=== PATIENT | male | born 1935 | race Caucasian/White ===

== ENCOUNTER 2016-08-20 08:24 | Outpatient (RCR) | payer MEDICARE ==
[~2016-08-20 08:24] MED LIST: ASP81CT PO; ATRV10T PO; CALC1TAB94 PO; CARV6.252 PO; CLOP75TA PO; COLC1TAB PO; EZET10TA5 PO; GEMF600T3 PO; GLYB1.253 PO; METF-380 PO; MULT-963 PO; OMG1KC PO; RMP5C PO; RSG4T PO; SITA100T PO
[2016-08-20 08:56] LABS: BASOPHILS % (AUTO) 0 % (0-10); EOSINOPHILS # (AUTO) 0.4 10^3/uL (0.0-0.3); EOSINOPHILS % (AUTO) 8 % (0-10); LYMPHOCYTES # (AUTO) 1.9 X 10^3 (1.0-4.0); LYMPHOCYTES % (AUTO) 33 % (12-44); MEAN CORPUSCULAR HEMOGLOBIN 31 PG (25-34); MEAN CORPUSCULAR HGB CONC 34 G/DL (32-36); MEAN CORPUSCULAR VOLUME 91 FL (80-99); MEAN PLATELET VOLUME 9.6 FL (7.4-10.4); MONOCYTES # (AUTO) 0.8 X 10^3 (0.0-1.0); MONOCYTES % (AUTO) 14 % (0-12); NEUTROPHILS # (AUTO) 2.7 X 10^3 (1.8-7.8); NEUTROPHILS % (AUTO) 46 % (42-75); PLATELET COUNT 169 10^3/uL (130-400); RED BLOOD COUNT 5.01 10^6/uL (4.35-5.85); RED CELL DISTRIBUTION WIDTH 13.7 % (10.0-14.5); WHITE BLOOD COUNT 5.9 10^3/uL (4.3-11.0)
[2016-08-20 09:26] LABS: ALANINE AMINOTRANSFERASE 14 U/L (0-55); ALBUMIN 4.2 G/DL (3.2-4.5); ANION GAP 10 MMOL/L (5-14); ASPARTATE AMINO TRANSFERASE 17 U/L (5-34); BILIRUBIN,TOTAL 0.7 MG/DL (0.1-1.0); BLOOD UREA NITROGEN 25 MG/DL (7-18); BUN/CREATININE RATIO 25; CALCIUM 9.5 MG/DL (8.5-10.1); CARBON DIOXIDE 26 MMOL/L (21-32); CHLORIDE 102 MMOL/L (98-107); CREATININE SERUM 1.02 MG/DL (0.60-1.30); GFR ESTIMATED > 60; GLUCOSE 189 MG/DL (70-105); LACTATE DEHYDROGENASE 193 U/L (125-220); POTASSIUM 4.8 MMOL/L (3.6-5.0); SODIUM 138 MMOL/L (135-145); TOTAL PROTEIN 7.3 G/DL (6.4-8.2)
== END 2016-11-18 | disposition home or self-care (01) ==
LOC: ONC 08:24
PROVIDERS: ATTEND Internal Medicine Hematology & Oncology
DX: Z08 Encounter for follow-up examination after completed treatment for malignant neoplasm (principal); Z85.820 Personal history of malignant melanoma of skin; L57.0 Actinic keratosis; Z79.899 Other long term (current) drug therapy
CPT/HCPCS: 36415; 80053; 83615; 85025; 99213

== ENCOUNTER → 2017-01-02 | Outpatient (CLI) | payer MEDICARE | LOC: RT 10:00 | PROVIDERS: ATTEND Internal Medicine | DX: J44.9 Chronic obstructive pulmonary disease, unspecified (principal); R06.02 Shortness of breath | CPT/HCPCS: 94761 ==

== ENCOUNTER → 2017-06-05 | Outpatient (CLI) | payer MEDICARE, BC ==
[~2017-06-05] MED LIST changes: +AMLO10TA2 PO; +ASPI-983 PO; +ASPI-999 PO; +ATOR20TA66 PO; +CALC-6 PO; +CILO100T PO; +DONE10TA41 PO; +FURO40TA4 PO; +INSU100I10 SC; +INSU100I23 SC; +MULT-35 PO; +NITR0.4T42 SL; +RAMI5CAP PO; +RT-ALBUINH INH; +RT-ALBUTEROL SULF 2.5 MG/3 ML PRE-MIX VIAL INH ONE
--- NOTE | 2017-06-05 08:37 | Diagnostic Imaging Report ---
INDICATION: Wheezing PA and lateral chest obtained at 7:54 a.m. and compared with 04/03/2013. FINDINGS: Heart is mildly enlarged. There is central vascular congestion with some peribronchial thickening. There is no overt consolidation or pneumothorax or pleural fluid. IMPRESSION: Cardiomegaly with central vascular congestion and peribronchial thickening. No focal infiltrate or pneumothorax or pleural fluid. Dictated by: Dictated on workstation # [id number]
[2017-06-05 09:24] LABS: BASOPHILS % (AUTO) 0 % (0-10); EOSINOPHILS # (AUTO) 0.1 10^3/uL (0.0-0.3); EOSINOPHILS % (AUTO) 1 % (0-10); HEMATOCRIT 40 % (40-54); HEMOGLOBIN 13.9 G/DL (13.3-17.7); LYMPHOCYTES % (AUTO) 29 % (12-44); MEAN CORPUSCULAR HEMOGLOBIN 30 PG (25-34); MEAN CORPUSCULAR HGB CONC 35 G/DL (32-36); MEAN CORPUSCULAR VOLUME 87 FL (80-99); MEAN PLATELET VOLUME 9.5 FL (7.4-10.4); MONOCYTES # (AUTO) 0.7 X 10^3 (0.0-1.0); MONOCYTES % (AUTO) 10 % (0-12); NEUTROPHILS # (AUTO) 4.1 X 10^3 (1.8-7.8); NEUTROPHILS % (AUTO) 60 % (42-75); PLATELET COUNT 214 10^3/uL (130-400); RED CELL DISTRIBUTION WIDTH 13.6 % (10.0-14.5); WHITE BLOOD COUNT 6.9 10^3/uL (4.3-11.0)
[2017-06-05 09:49] LABS: ALANINE AMINOTRANSFERASE 12 U/L (0-55); ALKALINE PHOSPHATASE 114 U/L (40-136); BILIRUBIN,TOTAL 1.6 MG/DL (0.1-1.0); BUN/CREATININE RATIO 23; CALCIUM 9.6 MG/DL (8.5-10.1); CARBON DIOXIDE 19 MMOL/L (21-32); CHLORIDE 101 MMOL/L (98-107); CREATININE SERUM 0.94 MG/DL (0.60-1.30); GFR ESTIMATED > 60; GLUCOSE 150 MG/DL (70-105); POTASSIUM 4.1 MMOL/L (3.6-5.0); SODIUM 135 MMOL/L (135-145); TOTAL PROTEIN 7.7 GM/DL (6.4-8.2)
== END ==
LOC: RT 07:15
PROVIDERS: ATTEND Internal Medicine
DX: R06.2 Wheezing (principal)
CPT/HCPCS: 36415; 71046; 80053; 84484; 85025; 94060; 94726; 94729

== ENCOUNTER 2017-06-06 06:45 | Inpatient (IN) | payer MEDICARE, BC ==
[~2017-06-06] VITALS: Ht 177.8 cm; Wt 97.2 kg
[~2017-06-06 06:45] MED LIST changes: -AMLO10TA2 PO; -ASPI-983 PO; -ASPI-999 PO; -ATOR20TA66 PO; -CALC-6 PO; -CILO100T PO; -DONE10TA41 PO; -FURO40TA4 PO; -INSU100I10 SC; -INSU100I23 SC; -MULT-35 PO; -NITR0.4T42 SL; -RAMI5CAP PO; -RT-ALBUINH INH; -RT-ALBUTEROL SULF 2.5 MG/3 ML PRE-MIX VIAL INH ONE
[2017-06-06] MEDS ORDERED: FURO40TA4 PO (07:07)
[2017-06-06] MEDS ORDERED: AMLO10TA2 PO (07:07)
[2017-06-06] MEDS ORDERED: DONE10TA41 PO (07:07)
[2017-06-06 07:12] LABS: BASOPHILS % (AUTO) 0 % (0-10); EOSINOPHILS # (AUTO) 0.1 10^3/uL (0.0-0.3); EOSINOPHILS % (AUTO) 2 % (0-10); HEMATOCRIT 40 % (40-54); HEMOGLOBIN 13.9 G/DL (13.3-17.7); LYMPHOCYTES # (AUTO) 1.9 X 10^3 (1.0-4.0); LYMPHOCYTES % (AUTO) 27 % (12-44); MEAN CORPUSCULAR HEMOGLOBIN 31 PG (25-34); MEAN CORPUSCULAR HGB CONC 35 G/DL (32-36); MEAN CORPUSCULAR VOLUME 88 FL (80-99); MEAN PLATELET VOLUME 9.8 FL (7.4-10.4); MONOCYTES # (AUTO) 0.7 X 10^3 (0.0-1.0); MONOCYTES % (AUTO) 10 % (0-12); NEUTROPHILS # (AUTO) 4.3 X 10^3 (1.8-7.8); NEUTROPHILS % (AUTO) 61 % (42-75); PLATELET COUNT 198 10^3/uL (130-400); RED BLOOD COUNT 4.52 10^6/uL (4.35-5.85); RED CELL DISTRIBUTION WIDTH 13.7 % (10.0-14.5); WHITE BLOOD COUNT 7.1 10^3/uL (4.3-11.0)
[2017-06-06 07:30] LABS: ALANINE AMINOTRANSFERASE 13 U/L (0-55); ALKALINE PHOSPHATASE 117 U/L (40-136); BILIRUBIN,TOTAL 1.2 MG/DL (0.1-1.0); BUN/CREATININE RATIO 23; CALCIUM 9.5 MG/DL (8.5-10.1); CARBON DIOXIDE 21 MMOL/L (21-32); CHLORIDE 103 MMOL/L (98-107); CREATININE SERUM 0.84 MG/DL (0.60-1.30); GFR ESTIMATED > 60; GLUCOSE 178 MG/DL (70-105); POTASSIUM 4.3 MMOL/L (3.6-5.0); SODIUM 136 MMOL/L (135-145); TOTAL PROTEIN 7.6 GM/DL (6.4-8.2)
--- NOTE | 2017-06-06 07:54 | Diagnostic Imaging Report ---
INDICATION: Shortness of breath. TECHNIQUE: Single view chest 7:26 AM. CORRELATION STUDY: 06/05/2017 FINDINGS: Heart size enlarged and hilar structures are prominent. Some degree of vascular congestion present, appears increased. Superimposed infiltrate versus edema also suggested about the right infrahilar region. Probable effusions. Truxton screw over the right humeral head. IMPRESSION: 1. Cardiac enlargement with what appears to be presence of pulmonary vascular congestion and perihilar edema. Superimposed infiltrate or edema also appears to be suspect about the right lung base with overall features worsened from prior study. Given the severity of hilar fullness, adenopathy or mass lesion would be difficult to exclude. Dictated by: Dictated on workstation # [id number]
--- NOTE | 2017-06-06 08:17 | ED Respiratory ---
General Chief Complaint: Respiratory Problems Stated Complaint: SOB Nursing Triage Note: pt brought in by ems with complaint of sob. pt states he has been sob for the last few weeks, but it became worse this morning. Source: patient, family Exam Limitations: no limitations History of Present Illness Date Seen by Provider: Jun 06, 2017 Time Seen by Provider: 07:55 Timing/Duration: week, getting worse Severity: moderate Prior Episodes/Possible Cause: chronic episodes Modifying Factors: Improves With Lying Down Allergies and Home Medications Allergies Coded Allergies: No Known Drug Allergies (Unverified , 10/05/09) Home Medications Amlodipine Besylate 10 Mg Tablet, (Reported) Aspirin 81 Mg Chew, 81 MG PO DAILY, (Reported) Calcium Carbonate/Vitamin D3 1 Each Tablet, 1 EACH PO DAILY, (Reported) Carvedilol 6.25 Mg Tablet, 6.25 MG PO BID, (Reported) Colchicine/Probenecid 1 Each Tablet, 1 TAB PO BID, (Reported) Donepezil HCl 10 Mg Tablet, (Reported) Furosemide 40 Mg Tablet, (Reported) Glyburide 1.25 Mg Tablet, 1.25 MG PO DAILY, #30 Prescribed by: FAVIOLA FRIAS on 04/06/13 1017 Metformin Hcl 1,000 Mg Tablet, 1,000 MG PO BID WITH MEALS, (Reported) Multivitamin 1 Each Tablet, 1 TAB PO DAILY, #30 Prescribed by: FAVIOLA FRIAS on 04/06/13 1017 [place] 3 Polyunsat Fatty Acids 1,000 Mg Cap, 1,000 MG PO DAILY, (Reported) Ramipril 5 Mg Cap, 5 MG PO DAILY, (Reported) Sitagliptin Phosphate 100 Mg Tablet, 100 MG PO DAILY, (Reported) Constitutional: see HPI EENTM: no symptoms reported Respiratory: see HPI, dyspnea on exertion, short of breath Cardiovascular: no symptoms reported Gastrointestinal: no symptoms reported Genitourinary: no symptoms reported Musculoskeletal: no symptoms reported Skin: no symptoms reported Psychiatric/Neurological: No Symptoms Reported Hematologic/Lymphatic: No Symptoms Reported Immunological/Allergic: no symptoms reported Past Wlyiobj-Swvhbt-Biotvu Hx Patient Social History Alcohol Use: Occasionally Uses Recreational Drug Use: No Smoking Status: Former Smoker Recent Foreign Travel: No Contact w/Someone Who Travel: No Recent Infectious Disease Expo: No Recent Hopitalizations: Yes Immunizations Up To Date PED Vaccines UTD: Yes Surgeries History of Surgeries: Yes (rotator cuff bilat, knee replacement, broken legs bilat, melanomo in ear re) Respiratory History of Respiratory Disorde: No Cardiovascular History of Cardiac Disorders: Yes Cardiac Disorders: Heart Attack, Hypertension Neurological History of Neurological Disord: Yes Reproductive System Hx Reproductive Disorders: No Gastrointestinal History of Gastrointestinal Di: No Musculoskeletal History of Musculoskeletal Dis: Yes Musculoskeletal Disorders: Gout Endocrine History of Endocrine Disorders: Yes Endocrine Disorders: Diabetes, Insulin dep HEENT HEENT Disorders: Cataract Loss of Vision: Right Hearing Impairment: Hard of Hearing Cancer History of Cancer: Yes Cancer: Skin, Melanoma Psychosocial History of Psychiatric Problem: No Integumentary History of Skin or Integumenta: Yes (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) Blood Transfusions History of Blood Disorders: No Adverse Reaction to a Blood Tr: No Family Medical History Significant Family History: Heart Disease, Cancer, CAD Under 55 Years Old Family Medial History: Cancer 09 SISTER, Onset:60 years & older (OVARIAN CANCER) 09 SISTER, Onset:40's - 50 (BREAST CANCER) Chest pain 03 FATHER, Onset:50's - 60 ([place]) Dementia 03 MOTHER, Onset:60 years & older Family history: Alzheimer's disease 03 MOTHER, Onset:60 years & older Family history: Arthritis 03 FATHER, Onset:40's - 50 Family history: Breast disease 09 SISTER, Onset:40's - 50 ( OF BREAST CANCER) Family history: Cardiovascular disease 03 FATHER, Onset:40's - 50 Family history: Hypertension 03 FATHER, Onset:40's - 50 Heart disease 03 FATHER, Onset:40's - 50 Hypercholesterolemia 03 FATHER, Onset:40's - 50 Myocardial infarction 03 FATHER, Onset:40's - 50 Visual impairment 09 SISTER, Onset:40's - 50 No Family History of: Abdominal aortic aneurysm Rick's disease Alcoholism Aphasia Cancer of colon Cataract Congenital heart disease Congestive heart failure Cystic fibrosis Dysphagia Family history: Allergy Family history: Asthma Family history: Coronary thrombosis Family history: Diabetes mellitus Family history: Gastrointestinal disease Family history: Glaucoma Family history: Osteoporosis Family history: Thyroid disorder Headache Hearing loss Hereditary disease History of - anemia History of - disorder History of - respiratory disease History of drug abuse Human immunodeficiency virus (HIV) seropositivity Infertile Kidney disease Malignant neoplasm of lung Parkinson's disease Prostate cancer Psychotic disorder Seizure disorder Stroke Tuberculosis Physical Exam Vital Signs Vital Signs - First Documented 06/06/17 06:45 Temp 97.8 Pulse 90 Resp 28 B/P (MAP) 109/77 (88) Pulse Ox 88 O2 Delivery Room Air Capillary Refill : Less Than 3 Seconds General Appearance: mild distress (speaks in full sentences nonstop) Eyes: Bilateral Eye Normal Inspection HEENT: normal ENT inspection Neck: full range of motion, normal inspection (no JVD noted at 45) Respiratory: decreased breath sounds (distant) Cardiovascular: normal peripheral pulses, regular rate, rhythm, no gallop, no JVD Gastrointestinal: normal bowel sounds, non tender, soft, no organomegaly, no pulsatile mass Extremities: swelling (bilateral to midshin) Neurologic/Psychiatric: other (repeats stories) Skin: normal color, warm/dry Lymphatic: no adenopathy Progress/Results/Core Measures Suspected Sepsis Recent Fever Within 48 Hours: No Infection Criteria Present: None New/Unexplained Altered Menta: No Sepsis Screen: No Definite Risk Sepsis Diagnosis: SIRS Temperature:97.8 Pulse: 90 Respiratory Rate: 28 Laboratory Tests 06/06/17 07:03: White Blood Count 7.1 Blood Pressure 109 /77 Mean: 88 Laboratory Tests 06/06/17 07:03: Creatinine 0.84, Platelet Count 198, Total Bilirubin 1.2H Results/Orders Lab Results Laboratory Tests Test 06/06/17 07:03 Range/Units White Blood Count 7.1 4.3-11.0 10^3/uL Red Blood Count 4.52 4.35-5.85 10^6/uL Hemoglobin 13.9 13.3-17.7 G/DL Hematocrit 40 40-54 % Mean Corpuscular Volume 88 80-99 FL Mean Corpuscular Hemoglobin 31 25-34 PG Mean Corpuscular Hemoglobin Concent 35 32-36 G/DL Red Cell Distribution Width 13.7 10.0-14.5 % Platelet Count 198 130-400 10^3/uL Mean Platelet Volume 9.8 7.4-10.4 FL Neutrophils (%) (Auto) 61 42-75 % Lymphocytes (%) (Auto) 27 12-44 % Monocytes (%) (Auto) 10 0-12 % Eosinophils (%) (Auto) 2 0-10 % Basophils (%) (Auto) 0 0-10 % Neutrophils # (Auto) 4.3 1.8-7.8 X 10^3 Lymphocytes # (Auto) 1.9 1.0-4.0 X 10^3 Monocytes # (Auto) 0.7 0.0-1.0 X 10^3 Eosinophils # (Auto) 0.1 0.0-0.3 10^3/uL Basophils # (Auto) 0.0 0.0-0.1 10^3/uL Sodium Level 136 135-145 MMOL/L Potassium Level 4.3 3.6-5.0 MMOL/L Chloride Level 103 98-107 MMOL/L Carbon Dioxide Level 21 21-32 MMOL/L Anion Gap 12 5-14 MMOL/L Blood Urea Nitrogen 19 H 7-18 MG/DL Creatinine 0.84 0.60-1.30 MG/DL Estimat Glomerular Filtration Rate > 60 BUN/Creatinine Ratio 23 Glucose Level 178 H 70-105 MG/DL Calcium Level 9.5 8.5-10.1 MG/DL Total Bilirubin 1.2 H 0.1-1.0 MG/DL Aspartate Amino Transf (AST/SGOT) 17 5-34 U/L Alanine Aminotransferase (ALT/SGPT) 13 0-55 U/L Alkaline Phosphatase 117 40-136 U/L B-Type Natriuretic Peptide 854.1 H <100.0 PG/ML Total Protein 7.6 6.4-8.2 GM/DL Albumin 4.0 3.2-4.5 GM/DL My Orders Orders - ASHLEY MIKE MD BNP (06/06/17 07:05) Cbc With Automated Diff (06/06/17 07:05) Comprehensive Metabolic Panel (06/06/17 07:05) Ua Culture If Indicated (06/06/17 07:05) Chest 1 View, Ap/Pa Only (06/06/17 07:05) Vital Signs/I&O Vital Sign - Last 12Hours 06/06/17 06:45 Temp 97.8 Pulse 90 Resp 28 B/P (MAP) 109/77 (88) Pulse Ox 88 O2 Delivery Room Air Capillary Refill : Less Than 3 Seconds Blood Pressure Mean: 88 Departure Communication (Admissions) Progress Notes Examination of old records showed a previous echocardiogram from 2012. This showed an aortic valve area 1.1 cm and a pulmonary artery pressure of 40. He has seen Dr. Sander SAENZ and these records from [place] are not available to me at this time. Chest x-ray yesterday is compared to today's and the congestion and the pulmonary outflow track is considerably increased as compared to yesterday. BNP is 850. No other readings are available on the BNP for comparison. Spoke to Dr. Frias his PCP at 0800 and additional information from the office was acquire. She believes that both the patient and his are increasingly confused and struggling to maintain themselves at home. Spoke to Dr. Dumont of the hospitalist service at 0808 and the patient will be admitted Impression Impression: Primary Impression: congestive heart failure Disposition: ADMITTED INPATIENT Condition: Stable/Unchanged Admissions Decision to Admit Reason: Admit from ER (General) Decision to Admit/Date: Jun 06, 2017 Time/Decision to Admit Time: 08:28 Departure-Patient Inst. Referrals: FAVIOLA FRIAS DO (PCP/Family) Primary Care Physician ASHLEY MIKE MD Jun 06, 2017 08:17
[2017-06-06] MEDS ORDERED: OMG1KC PO (10:08)
[2017-06-06] MEDS ORDERED: MULT-35 PO (10:08)
[2017-06-06] MEDS ORDERED: ATOR20TA66 PO (10:08)
[2017-06-06] MEDS ORDERED: CILO100T PO (10:08)
[2017-06-06] MEDS ORDERED: CALC-6 PO (10:08)
[2017-06-06] MEDS ORDERED: ASPI-999 PO (10:08)
[2017-06-06] MEDS ORDERED: CARV6.252 PO (10:08)
[2017-06-06] MEDS: FUROSEMIDE 40 MG/4 ML INJ (LASIX) IV SCH ×2 (10:22→17:28)
[2017-06-06] MEDS ORDERED: RAMI5CAP PO (10:38)
[2017-06-06] MEDS ORDERED: ASPI-983 PO (10:38)
[2017-06-06] MEDS ORDERED: INSU100I23 SC (10:38)
[2017-06-06] MEDS ORDERED: NITR0.4T42 SL (10:38)
[2017-06-06] MEDS ORDERED: INSU100I10 SC (10:38)
[2017-06-06] MEDS ORDERED: RT-ALBUINH INH (10:38)
[2017-06-06] MEDS ORDERED: INFLUENZA TRIvalent 2017-2018 0.5 ML/45 MCG SYR IM ONE (10:45)
--- NOTE | 2017-06-06 11:22 | Consultation-Cardiology ---
HPI-Cardiology Cardiology Consultation: Date of Consultation 06/06/17 Date of Admission Attending Physician Tanvi Maxwell DO Admitting Physician Tanvi Maxwell DO Consulting Physician Boris PALAFOX MD HPI: Time Seen by Provider: 10:00 Chief Complaint: Shortness of breath This is a pleasant 82-year-old gentleman who has past medical history of congestive heart failure, diabetes, possible CAD and high blood pressure. The patient had presented to the emergency department with complains of shortness of breath. He has had shortness of breath for a while but has been worse in the last 2-3 days. However he also had an admission at [facility] in [place] for congestive heart failure 2-3 months ago. Patient also complained of coughing with sputum. No fever or chills. The patient denies any claudication but has mild swelling in the legs. The patient denies any significant chest pain, syncope or near syncope or palpitations during my interview. Review of Systems-Cardiology Review of Systems Constitutional: No As described under HPI, No no symptoms reported, No chills, No fever, No lightheadedness, malaise, No tiredness, No weight loss, No weight gain, No other Eyes: No As described under HPI, No no symptoms reported, No blindness, No blurred vision, No contact lenses, No drainage, No decreased acuity, No foreign body sensation, No glasses, No inflammation, No pain, No photophobia, No previous injury, No shadows, No tunnel vision, No other, No vision change Ears/Nose/Throat: No As described under HPI, No no symptoms reported, chronic hearing loss, No epistaxis, No ear discharge, No ear pain, No loose teeth, No mouth pain, No mouth swelling, No nasal drainage, No nose pain, No recent hearing loss, No throat pain, No throat swelling, No ulcerations, No other Respiratory: cough, shortness of breath Cardiovascular: No no symptoms reported, No As described under HPI, No chest pain, edema, No irregular heart rate, No lightheadedness, No palpitations, No syncope, No other Gastrointestinal: No no symptoms reported, No As described under HPI, No abdomen distended, No abdominal pain, No blood streaked bowels, No constipation , No diarrhea, No difficulty swallowing, No nausea, No poor appetite, No poor fluid intake, No rectal bleeding, No vomiting, No other, No nausea/vomiting/ diarrhea, No stool coloration changes Genitourinary: No no symptoms reported, No As described under HPI, No burning, No dysuria, No discharge, No frequency, No flank pain, No hematuria, No incontinence, No pain, No urgency, No other, No urine frequency changes, No urine coloration changes Musculoskeletal: No no symptoms reported, No As describe under HPI, No back pain, No gout, No joint pain, No joint swelling, No muscle pain, No muscle stiffness, No neck pain, No other Skin: No no symptoms reported, No As described under HPI, No change in color, No change in hair/nails, No dryness, No lesions, No lumps, No rash, No other, No skin related problems, No ulcerations, No rash on exposed areas, No ulcerations on exposed areas Psychiatric/Neurological: No no symptoms reported, No As described under HPI, No anxiety, No depression, No emotional problems, No headache, No numbness, No pre-existing deficit, No seizure, No tingling, No tremors, No weakness, No other , No focal weakness, No syncope Hematologic: No no symptoms reported, No As described under HPI, No anemia, No blood clots, No easy bleeding, No easy bruising, No swollen glands, No other, No bleeding abnormalities NUG-Yaloco-Yvdwzn Hx Patient Social History Alcohol Use: Occasionally Uses Recreational Drug Use: No Smoking Status: Never a Smoker Recent Foreign Travel: No Recent Infectious Disease Expo: No Hospitalization with Isolation: Denies, Unknown Physical Abuse Screen: No Sexual Abuse: No Past Medical History PMH As described under Assessment. Family Medical History Family History: Cancer 09 SISTER, Onset:60 years & older (OVARIAN CANCER) 09 SISTER, Onset:40's - 50 (BREAST CANCER) Chest pain 03 FATHER, Onset:50's - 60 ([place]) Dementia 03 MOTHER, Onset:60 years & older Family history: Alzheimer's disease 03 MOTHER, Onset:60 years & older Family history: Arthritis 03 FATHER, Onset:40's - 50 Family history: Breast disease 09 SISTER, Onset:40's - 50 ( OF BREAST CANCER) Family history: Cardiovascular disease 03 FATHER, Onset:40's - 50 Family history: Hypertension 03 FATHER, Onset:40's - 50 Heart disease 03 FATHER, Onset:40's - 50 Hypercholesterolemia 03 FATHER, Onset:40's - 50 Myocardial infarction 03 FATHER, Onset:40's - 50 Visual impairment 09 SISTER, Onset:40's - 50 No Family History of: Abdominal aortic aneurysm Rogers's disease Alcoholism Aphasia Cancer of colon Cataract Congenital heart disease Congestive heart failure Cystic fibrosis Dysphagia Family history: Allergy Family history: Asthma Family history: Coronary thrombosis Family history: Diabetes mellitus Family history: Gastrointestinal disease Family history: Glaucoma Family history: Osteoporosis Family history: Thyroid disorder Headache Hearing loss Hereditary disease History of - anemia History of - disorder History of - respiratory disease History of drug abuse Human immunodeficiency virus (HIV) seropositivity Infertile Kidney disease Malignant neoplasm of lung Parkinson's disease Prostate cancer Psychotic disorder Seizure disorder Stroke Tuberculosis Allergies and Home Medications Allergies Coded Allergies: No Known Drug Allergies (Unverified , 06/06/17) Home Medications Albuterol Sulfate 1 Puff Puff, 2 PUFF INH Q4H PRN for SHORTNESS OF BREATH, ( Reported) Amlodipine Besylate 10 Mg Tablet, 10 MG PO DAILY, (Reported) Aspirin 81 Mg Tablet.dr, 81 MG PO DAILY, (Reported) Atorvastatin Calcium 20 Mg Tablet, 20 MG PO HS, (Reported) Calcium Carbonate/Vitamin D3 1 Each Tablet, 1 TAB PO DAILY, (Reported) Carvedilol 6.25 Mg Tablet, 6.25 MG PO BID, (Reported) Cilostazol 100 Mg Tablet, 100 MG PO BID, (Reported) Donepezil HCl 10 Mg Tablet, 10 MG PO HS, (Reported) Furosemide 40 Mg Tablet, 40 MG PO DAILY, (Reported) Insulin Glargine,Hum.rec.anlog 100 Unit/1 Ml Insuln.pen, 35 UNITS SC DAILY, ( Reported) Insulin Lispro 100 Unit/1 Ml Insuln.pen, 20 UNITS SC TIDAC, (Reported) Multivitamin 1 Each Tablet, 1 TAB PO DAILY, (Reported) Nitroglycerin 0.4 Mg Tab.subl, 0.4 MG SL UD PRN for CHEST PAIN, (Reported) [place] 3 Polyunsat Fatty Acids 1,000 Mg Cap, 1,000 MG PO DAILY, (Reported) Ramipril 5 Mg Capsule, 5 MG PO BID, (Reported) Physical Exam-Cardiology Physical Exam Vital Signs/I&O Vital Sign - Last 12Hours 06/06/17 06/06/17 06/06/17 06/06/17 08:26 12:00 14:35 16:00 Temp 97.1 100.0 Pulse 89 90 89 94 Resp 18 18 18 B/P (MAP) 126/59 (81) 117/71 (86) Pulse Ox 93 95 93 O2 Delivery Nasal Cannula Room Air Room Air O2 Flow Rate 3.00 Capillary Refill : Less Than 3 Seconds Constitutional: appears stated age, AAO x 3 HEENT: PERRL, No discharge, hearing is well preserved, oral hygience is good, No ulceration, No xanthelasmas are seen Neck: No non-tender, No full range of motion, No supple, No normal inspection, No carotid bruit, No limited range of motion, No lymphadenopathy (R), No lymphadenopathy (L), No tender lateral, No tender midline, No thyromegaly, No other, carotid pulses are 2 + bilaterally, No with good upstrokes Respiratory: chest is bilaterally symmetric, lungs clear to percussion, lungs clear to auscultation Cardiovascular: regular rate-rhythm, S1 and S2, systolic murmur Gastrointestinal: No tender, No soft, No round, No distended, No pulsatile mass , No organomegaly, No guarding, No rebound, No tenderness, No hernia, No mass, No audible bowel sounds, No abnormal bowel sounds, No abdominal bruits, No spleenomegaly, No other Rectal: deferred Extremities: No normal range of motion, No non-tender, No normal inspection, No pedal edema, No calf tenderness, No normal capillary refill, No pelvis stable , No calf tenderness, No inflammation, No pedal edema, No slow capillary refill , No swelling, No other, No abrasion, No clubbing, No cyanosis, No ecchymosis, No laceration, No no lower extremity edema bilateral, No significant edema, No tenderness, No wound Neurologic/Psychiatric: alert, normal mood/affect, oriented x 3 Skin: No normal color, No warm/dry, No cyanosis, No cool, No diaphoresis, No damp, No ecchymosis, No jaundice, No mottled, No pallor, No rash, No tattoos/ piercings, No ulcerations, No rash on exposed areas, No ulcerations on exposed areas, No other Lymphatic: no adenopathy Data Review Labs Laboratory Tests 06/06/17 07:03: White Blood Count 7.1, Red Blood Count 4.52, Hemoglobin 13.9, Hematocrit 40, Mean Corpuscular Volume 88, Mean Corpuscular Hemoglobin 31, Mean Corpuscular Hemoglobin Concent 35, Red Cell Distribution Width 13.7, Platelet Count 198, Mean Platelet Volume 9.8, Neutrophils (%) (Auto) 61, Lymphocytes (%) (Auto) 27, Monocytes (%) (Auto) 10, Eosinophils (%) (Auto) 2, Basophils (%) (Auto) 0, Neutrophils # (Auto) 4.3, Lymphocytes # (Auto) 1.9, Monocytes # (Auto) 0.7, Eosinophils # (Auto) 0.1, Basophils # (Auto) 0.0, Sodium Level 136, Potassium Level 4.3, Chloride Level 103, Carbon Dioxide Level 21, Anion Gap 12, Blood Urea Nitrogen 19H, Creatinine 0.84, Estimat Glomerular Filtration Rate > 60, BUN /Creatinine Ratio 23, Glucose Level 178H, Calcium Level 9.5, Total Bilirubin 1.2H, Aspartate Amino Transf (AST/SGOT) 17, Alanine Aminotransferase (ALT/SGPT) 13, Alkaline Phosphatase 117, B-Type Natriuretic Peptide 854.1H, Total Protein 7.6, Albumin 4.0 ECG Impression ECG Initial ECG Rhythm: Normal Sinus Initial ECG Impression: Nonspecific Changes A/P-Cardiology Assessment/Admission Diagnosis Acute systolic congestive heart failure, Rule out pneumonia, Possible CAD, Hypertension, Diabetes, Systolic murmur Plan Acute systolic congestive heart failure, I have requested all records from Dr. Seals's office which include echocardiogram and any other testing performed. Echocardiogram was repeated today which shows severe LV systolic dysfunction with an EF of 30 percent. Elevated BNP. No significant improvement with low- dose Lasix. We will give further IV Lasix. Rule out pneumonia, deferred to Dr. Holland. Possible history of CAD, no chest pain. Benign EKG. Hypertension, continue outpatient medications. Diabetes, insulin. Systolic murmur. Echocardiogram done today demonstrates at least moderate to severe aortic stenosis and moderate aortic insufficiency. Low output severe aortic stenosis cannot be ruled out. The patient may be a candidate to be evaluated for percutaneous aortic valve surgery. Thank you for your consultation. Please call me if you have any questions. Alex Palafox MD, FACP, FACC, FSCAI, FHRS, CCDS Interventional Cardiology Cardiac Electrophysiology Vascular Medicine and Endovascular Interventions Clinical Quality Measures DVT/VTE Risk/Contraindication: Risk Factor Score Per Nursin RFS Level Per Nursing on Admit: 4+=Very High Boris PALAFOX MD Jun 06, 2017 11:22
[2017-06-06 12:00] VITALS: BP 126/59
--- NOTE | 2017-06-06 12:15 | History & Physical-Hospitalist ---
HPI History of Present Illness: HPI/Chief Complaint Pt is an 82yoCM with a PMH of CHF, IDDMII, CAD, and HTN who presented to the ER with CC of SOB. He reports he has been short of breath for a few years but has worsened over the past 2-3 days. He has been coughing and producing sputum. He denies any fevers or sick contacts. He has also been feeling very weak. He was normally able to walk 5 miles daily but recently has been limited due to weakness of his lower extremities. He denies any calf pain with walking or other symptoms of claudication. He has had some swelling in his legs as well. He follows with Dr Seals in [place] for his cardiac care. He last saw him 2-3 months ago. His daughter at bedside reports that he is intermittently complaint with his medications (mostly insulin). He thinks on average he takes 3/4 insulin injections per day. Source: patient Date Seen 06/06/17 Time Seen by Provider: 12:15 Attending Physician Tanvi Maxwell DO PCP Tanvi Maxwell DO Referring Physician Date of Admission Jun 06, 2017 at 08:30 Home Medications & Allergies Home Medications Reviewed patient Home Medication Reconciliation Form Allergies Allergies Coded Allergies No Known Drug Allergies (Unverified06/06/17) Past Mmvdgjc-Cqwajg-Nvcapg Hx Patient Social History Alcohol Use: Occasionally Uses Alcohol Beverage of Choice: Beer Recreational Drug Use: No Smoking Status: Never a Smoker Physical Abuse Screen: No Sexual Abuse: No Recent Foreign Travel: No Contact w/other who traveled: No Recent Hopitalizations: Yes Recent Infectious Disease Expo: No Immunizations Up To Date Pediatric: Yes Seasonal Allergies Seasonal Allergies: No Surgeries Yes (rotator cuff bilat, knee replacement, broken legs bilat, melanomo in ear re ) Respiratory No Currently Using CPAP: No Currently Using BIPAP: No Cardiovascular Yes Heart Attack, Hypertension Neurological Yes Reproductive System Hx Reproductive Disorders: No Sexually Transmitted Disease: No HIV/AIDS: No Genitourinary No Gastrointestinal No Musculoskeletal Yes Gout Endocrine History of Endocrine Disorders: Yes Endocrine Disorders: Diabetes, Insulin dep Are Your Blood Sugars Over 250: No HEENT HEENT Disorders: Cataract Loss of Vision: Denies Hearing Impairment: Hard of Hearing Cancer Yes Skin, Melanoma Did You Recieve Any Treatments: No Psychosocial History of Psychiatric Problem: No Integumentary History of Skin or Integumenta: Yes (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 ) Blood Transfusions History of Blood Disorders: No Adverse Reaction to a Blood Tr: No Family Medical History Significant Family History: Heart Disease, Cancer, CAD Under 55 Years Old Family Hx: Cancer 09 SISTER, Onset:60 years & older (OVARIAN CANCER) 09 SISTER, Onset:40's - 50 (BREAST CANCER) Chest pain 03 FATHER, Onset:50's - 60 (PR) Dementia 03 MOTHER, Onset:60 years & older Family history: Alzheimer's disease 03 MOTHER, Onset:60 years & older Family history: Arthritis 03 FATHER, Onset:40's - 50 Family history: Breast disease 09 SISTER, Onset:40's - 50 ( OF BREAST CANCER) Family history: Cardiovascular disease 03 FATHER, Onset:40's - 50 Family history: Hypertension 03 FATHER, Onset:40's - 50 Heart disease 03 FATHER, Onset:40's - 50 Hypercholesterolemia 03 FATHER, Onset:40's - 50 Myocardial infarction 03 FATHER, Onset:40's - 50 Visual impairment 09 SISTER, Onset:40's - 50 No Family History of: Abdominal aortic aneurysm Gormania's disease Alcoholism Aphasia Cancer of colon Cataract Congenital heart disease Congestive heart failure Cystic fibrosis Dysphagia Family history: Allergy Family history: Asthma Family history: Coronary thrombosis Family history: Diabetes mellitus Family history: Gastrointestinal disease Family history: Glaucoma Family history: Osteoporosis Family history: Thyroid disorder Headache Hearing loss Hereditary disease History of - anemia History of - disorder History of - respiratory disease History of drug abuse Human immunodeficiency virus (HIV) seropositivity Infertile Kidney disease Malignant neoplasm of lung Parkinson's disease Prostate cancer Psychotic disorder Seizure disorder Stroke Tuberculosis Review of Systems Constitutional: No chills, No fever, weakness EENTM: No blurred vision, No double vision, No vision loss, No nose congestion , No throat pain Respiratory: cough, dyspnea on exertion, orthopnea, short of breath Cardiovascular: No chest pain, edema, No palpitations Gastrointestinal: No abdominal pain, No constipation, No diarrhea, No nausea, No vomiting Genitourinary: No dysuria, No frequency Musculoskeletal: No joint pain, No muscle pain Skin: No lesions, No rash Psychiatric/Neurological: Denies Headache, Denies Numbness, Denies Tingling, Weakness Physical Exam Physical Exam Vital Signs Vital Signs - First Documented 06/06/17 06/06/17 06:45 08:26 Temp 97.8 Pulse 90 Resp 28 B/P (MAP) 109/77 (88) Pulse Ox 88 O2 Delivery Room Air O2 Flow Rate 3.00 Capillary Refill : Less Than 3 Seconds General Appearance: No Apparent Distress, WD/WN HEENT: PERRL/EOMI, Moist Mucous Membranes Neck: Non Tender, Supple Respiratory: Lungs Clear, No Respiratory Distress Cardiovascular: Regular Rate, Rhythm, No Murmur Gastrointestinal: Normal Bowel Sounds, Non Tender, Soft Extremity: Normal Capillary Refill, No Calf Tenderness Neurologic/Psychiatric: Alert, Oriented x3, Normal Mood/Affect Skin: Normal Color, Warm/Dry Results Results/Procedures Lab Laboratory Tests 06/06/17 07:03 Assessment/Plan Admission Diagnosis CHF exacerbation Diagnosis/Problems Diagnosis/Problems (1) CHF exacerbation Status: Acute Assessment & Plan: Will request records from [facility] for more recent echo Continue IV Lasix I/Os CHF education Cardiology consulted, appreciate recs Titrate oxygen to keep sats >90 Qualifiers: Qualified Codes: I50.9 - Heart failure, unspecified (2) Essential (primary) hypertension Assessment & Plan: Well controlled currently (3) CAD (coronary artery disease) Assessment & Plan: No chest pain or signs of ACS Cardiology consulted, appreciate recs Qualifiers: Qualified Codes: I25.10 - Atherosclerotic heart disease of [place] coronary artery without angina pectoris (4) Insulin dependent diabetes mellitus Assessment & Plan: Resume home insulin SSI Carb controlled diet (5) Prophylactic measure Assessment & Plan: Lovenox ADA diet/ Low Na Saline Lock Clinical Quality Measures DVT/VTE Risk/Contraindication: Risk Factor Score Per Nursin RFS Level Per Nursing on Admit: 4+=Very High LENNIE GREEN MD Jun 06, 2017 12:15 pm
[2017-06-06 16:00] VITALS: BP 117/71
[2017-06-06] MEDS ORDERED: ANTACID SUSP 30 ML UDC (MYLANTA) PO PRN (17:00)
[2017-06-06] MEDS ORDERED: NITROGLYCERIN 0.4 MG SL TABS BTL 25'S SL PRN (17:00)
[2017-06-06] MEDS ORDERED: ACETAMINOPHEN 325 MG TABLET/CAPLET (TYLENOL) PO PRN (17:00)
[2017-06-06] MEDS ORDERED: MELATONIN 3 MG TABLET PO PRN (17:00)
[2017-06-06] MEDS ORDERED: BENZONATATE 100 MG (TESSALON) CAPSULE PO PRN (17:00)
[2017-06-06] MEDS ORDERED: MILK OF MAGNESIA 400 MG/5 ML 30 ML UDC PO PRN (17:00)
[2017-06-06] MEDS ORDERED: ONDANSETRON 4 MG/2 ML (SDV) Z0FRAN IV PRN (17:00)
[2017-06-06] MEDS: inSUlin ASPART (NovoLOG) 1 UNIT/0.01 ML (CHARGE PER UNIT) SC SCH ×2 (17:28→20:40)
[2017-06-06] MEDS: ENOXAPARIN 40 MG/0.4 ML (LOVENOX) SYR SC SCH (17:28)
[2017-06-06 20:26] VITALS: BP 114/66
[2017-06-06] MEDS: ATORVASTATIN 20 MG (LIPITOR) TABLET PO SCH (20:33)
[2017-06-06] MEDS: DONEPEZIL 10 MG (ARICEPT) TAB PO SCH (20:33)
[2017-06-06] MEDS: RAMIPRIL 5 MG (ALTACE) CAP PO SCH (20:33)
[2017-06-06] MEDS ORDERED: CARVEDILOL 6.25 MG (COREG) TAB PO SCH (21:00)
[2017-06-06] MEDS: NON-FORMULARY MEDICATION 1 EA EA (Cilostazol 100 MG) PO SCH (21:31)
[2017-06-07 00:41] VITALS: BP 112/65
[2017-06-07 04:14] VITALS: BP 93/55
[2017-06-07 06:34] LABS: BUN/CREATININE RATIO 21; CALCIUM 9.1 MG/DL (8.5-10.1); CARBON DIOXIDE 21 MMOL/L (21-32); CHLORIDE 103 MMOL/L (98-107); CREATININE SERUM 0.77 MG/DL (0.60-1.30); GFR ESTIMATED > 60; GLUCOSE 138 MG/DL (70-105); POTASSIUM 3.7 MMOL/L (3.6-5.0); SODIUM 138 MMOL/L (135-145)
[2017-06-07] MEDS: inSUlin ASPART (NovoLOG) 1 UNIT/0.01 ML (CHARGE PER UNIT) SC SCH ×7 (06:40→20:34)
[2017-06-07] MEDS: FUROSEMIDE 40 MG/4 ML INJ (LASIX) IV SCH ×2 (06:41→17:49)
--- NOTE | 2017-06-07 08:11 | Progress Note-Hospitalist ---
Subjective HPI/CC On Admission Date Seen by Provider: Jun 07, 2017 Time Seen by Provider: 07:55 Pt is an 82yoCM with a PMH of CHF, IDDMII, CAD, and HTN who presented to the ER with CC of SOB. He reports he has been short of breath for a few years but has worsened over the past 2-3 days. He has been coughing and producing sputum. He denies any fevers or sick contacts. He has also been feeling very weak. He was normally able to walk 5 miles daily but recently has been limited due to weakness of his lower extremities. He denies any calf pain with walking or other symptoms of claudication. He has had some swelling in his legs as well. He follows with Dr Seals in [place] for his cardiac care. He last saw him 2-3 months ago. His daughter at bedside reports that he is intermittently complaint with his medications (mostly insulin). He thinks on average he takes 3/4 insulin injections per day. Subjective/Events-last exam Pt rpeorts feeling the exact same as yesterday. Still SOB. Not any worse but not any better. Still urinating. Still WINTERS. Objective Exam Vital Signs Vital Signs Date Time Temp Pulse Resp B/P (MAP) Pulse Ox O2 Delivery O2 Flow Rate FiO2 06/06/17 06:45 97.8 90 28 109/77 (88) 88 Room Air 06/06/17 08:26 3.00 Capillary Refill : Less Than 3 Seconds General Appearance: No Apparent Distress, WD/WN Respiratory: No Respiratory Distress, Decreased Breath Sounds Cardiovascular: Regular Rate, Rhythm, No Murmur Gastrointestinal: Non Tender, Soft Extremity: No Pedal Edema Neurologic/Psychiatric: Alert, Oriented x3, Normal Mood/Affect Results/Procedures Lab Laboratory Tests 06/07/17 05:25 Assessment/Plan Assessment and Plan Assess & Plan/Chief Complaint Acute on chronic systolic heart failure Diagnosis/Problems Diagnosis/Problems (1) CHF exacerbation Status: Acute Assessment & Plan: Will request records from [place] for more recent echo Echo here reveals EF 25% Continue IV Lasix I/Os CHF education Cardiology consulted, appreciate recs Titrate oxygen to keep sats >90 Has ANGIE, BB, Lasix Will get home oxygen study this afternoon Qualifiers: Qualified Codes: I50.23 - Acute on chronic systolic (congestive) heart failure (2) Essential (primary) hypertension Assessment & Plan: Low/normotensive Will Decrease coreg (3) CAD (coronary artery disease) Assessment & Plan: No chest pain or signs of ACS Cardiology consulted, appreciate recs Qualifiers: Qualified Codes: I25.10 - Atherosclerotic heart disease of [place] coronary artery without angina pectoris (4) Insulin dependent diabetes mellitus Assessment & Plan: Resume home insulin SSI Carb controlled diet (5) Prophylactic measure Assessment & Plan: Lovenox ADA diet/ Low Na Saline Lock LENNIE GREEN MD Jun 07, 2017 8:11 am
[2017-06-07 08:44] VITALS: BP 107/61
[2017-06-07] MEDS: ASPIRIN E.C. 81 MG (ECOTRIN) TAB PO SCH (08:51)
[2017-06-07] MEDS: CARVEDILOL 3.125 MG (COREG) TABLET PO SCH ×2 (08:51→20:37)
[2017-06-07] MEDS: RAMIPRIL 5 MG (ALTACE) CAP PO SCH ×2 (08:51→20:37)
[2017-06-07] MEDS: inSUlin DETERMIR 1 UNIT/0.01 ML (LEVEMIR) CHARGE PER UNIT SQ SCH (08:52)
[2017-06-07] MEDS: NON-FORMULARY MEDICATION 1 EA EA (Cilostazol 100 MG) PO SCH (08:54)
--- NOTE | 2017-06-07 09:27 | Physical Therapy Evaluation ---
PT Evaluation-General Medical Diagnosis Admission Date Jun 06, 2017 at 08:30 Medical Diagnosis: CHF Onset Date: Jun 06, 2017 Therapy Diagnosis Therapy Diagnosis: debility Height/Weight Height (Feet): 5 Height (Inches): 10.00 Weight (Pounds): 214 Weight (Ounces): 4.0 Precautions Precautions/Isolations: Standard Precautions Weight Bear Status Right Lower Extremity: Right Weight Bearing/Tolerated Left Lower Extremity: Left Weight Bearing/Tolerated Referral Physician: Amalia Reason for Referral: Evaluation/Treatment Medical History Pertinent Medical History: CAD, Heart Failure, HTN, NM Current History ED with SOB increasing for weeks Reviewed History: Yes Social History Home: Single Level Current Living Status: Spouse Prior/Core FIM Prior Level of Function Functional [place] Measure 0=Not Assessed/NA 4=Minimal Assistance 1=Total Assistance 5=Supervision or Setup 2=Maximal Assistance 6=Modified [place] 3=Moderate Assistance 7=Complete [place] Bed Mobility: 7 Transfers (B,C,W/C) (FIM): 7 Gait: 7 Locomotion: 7 PT Evaluation-Current Subjective Patient is in bed with family present. Agrees to PT. Pain Numeric Pain Scale: 0-No Pain Location: No Pain Reported Objective Patient Orientation: Normal For Age Problem Solving: Good Attachments: Oxygen (2L) ROM/Strength ROM Lower Extremities bilateral LE WNL Strength Lower Extremities bilateral LE 5/5 grossly Integumentary/Posture Integumentary refer to nursing notes Bowel Incontinence: No Bladder Incontinence: No Posture WNL Neuromuscular (Tone, Coordination, Reflexes) grossly intact Sensory Vision: Functional Hearing: Impaired Sensation Right Lower Extremit: Intact Sensation Left Lower Extremity: Intact Transfers Functional [place] Measure 0=Not Assessed/NA 4=Minimal Assistance 1=Total Assistance 5=Supervision or Setup 2=Maximal Assistance 6=Modified [place] 3=Moderate Assistance 7=Complete [place] Transfers (B, C, W/C) (FIM): 7 Scootin Rollin Supine to/from Sit: 7 Sit to/from Stand: 7 Gait Mode of Locomotion: Walk Anticipated Mode of Locomotion: Walk Gait (FIM): 7 Distance (FIM): 3=150 ft Distance: 450' Gait Level of Assist: 7 Gait Assistive Device: None Comments/Gait Description patient is independent with and without FWW to conserve energy. Balance Sitting Static: Normal Sitting Dynamic: Normal Standing Static: Normal Standing Dynamic: Normal Assessment/Needs 82 y.o. male, is currently at independent [facility] with all gross motor skills and does not require skilled PT intervention at this time. Patient encouraged patient to ambulate PRN in hallway with family or nursing staff. Rehab Potential: Good PT Plan Treatment/Plan Treatment Plan: Discontinue PT, goals met Treatment Plan: Other Treatment Duration: Jun 07, 2017 Frequency: 1 time per week Estimated Hrs Per Day: .25 hour per day Patient and/or Family Agrees t: Yes Discharge Recommendations Therapy D/C Recommendations: Home w/ Family Support Time/GCodes Time In: 905 Time Out: 918 Total Billed Treatment Time: 13 Total Billed Treatment 1 visit EVLowC 13 min G Codes Necessary: No OSCAR SR PT Jun 07, 2017 09:27
[2017-06-07] MEDS ORDERED: FUROSEMIDE 40 MG/4 ML INJ (LASIX) IVP NR ×2 (10:00→13:45)
[2017-06-07] MEDS: SPIRONOLACTONE 25 MG (ALDACTONE) TAB PO SCH (10:16)
--- NOTE | 2017-06-07 11:03 | Cardiology Progress Note ---
Cardiology SOAP Progress Note Subjective: Mild improvement in shortness of breath. Objective: I&O/Vital Signs Vital Sign - Last 12Hours 06/07/17 06/07/17 06/07/17 06/07/17 12:00 16:00 19:04 20:01 Temp 98.0 98.6 99.1 Pulse 84 85 86 88 Resp 20 20 20 B/P (MAP) 100/56 (71) 102/68 (79) 105/58 (74) Pulse Ox 94 95 95 O2 Delivery Room Air Room Air Room Air Intake and Output 06/07/17 00:00 Intake Total 1530 ml Output Total 1275 ml Balance 255 ml Weight (Pounds): 214 Weight (Ounces): 4.0 Weight (Calculated Kilograms): 97.227000 Constitutional: appears stated age, AAO x 3 Respiratory: chest is bilaterally symmetric, lungs clear to percussion, lungs clear to auscultation Cardiovascular: regular rate-rhythm, S1 and S2, systolic murmur Gastrointestional: No tender, No soft, No round, No distended, No pulsatile mass, No organomegaly, No guarding, No rebound, No tenderness, No hernia, No mass, No audible bowel sounds, No abnormal bowel sounds, No abdominal bruits, No spleenomegaly, No other Extremities: No normal range of motion, No non-tender, No normal inspection, No pedal edema, No calf tenderness, No normal capillary refill, No pelvis stable , No calf tenderness, No inflammation, No pedal edema, No slow capillary refill , No swelling, No other, No abrasion, No clubbing, No cyanosis, No ecchymosis, No laceration, No no lower extremity edema bilateral, No significant edema, No tenderness, No wound Neurologic/Psychiatric: alert, normal mood/affect, oriented x 3 Skin: No normal color, No warm/dry, No cyanosis, No cool, No diaphoresis, No damp, No ecchymosis, No jaundice, No mottled, No pallor, No rash, No tattoos/ piercings, No ulcerations, No rash on exposed areas, No ulcerations on exposed areas, No other Results/Procedures: Labs Laboratory Tests 06/07/17 05:25: Sodium Level 138, Potassium Level 3.7, Chloride Level 103, Carbon Dioxide Level 21, Anion Gap 14, Blood Urea Nitrogen 16, Creatinine 0.77, Estimat Glomerular Filtration Rate > 60, BUN/Creatinine Ratio 21, Glucose Level 138H, Calcium Level 9.1 06/07/17 10:41: Glucometer 117H 06/07/17 15:59: Glucometer 88 06/07/17 17:59: Glucometer 144H 06/07/17 20:32: Glucometer 95 A/P: Assessment/Dx: Acute systolic congestive heart failure, Rule out pneumonia, Possible CAD, Hypertension, Diabetes, Systolic murmur Plan: Acute systolic congestive heart failure, I have requested all records from Dr. Seals's office which include echocardiogram and any other testing performed. Echocardiogram was repeated today which shows severe LV systolic dysfunction with an EF of 30 percent. Elevated BNP. No significant improvement with low- dose Lasix. We will give further IV Lasix. Discussed at length with the patient and family all aspects of care and future plan of action. 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 If no coronary angiography has been performed then the patient will need evaluation of coronary anatomy to rule out ischemic etiology of cardiomyopathy. Will likely require coronary angiography pre-cardiac surgery for aortic stenosis as well. Primary prevention of sudden cardiac with lifevest. Rule out pneumonia, deferred to Dr. Holland. Possible history of CAD, no chest pain. Benign EKG. Hypertension, continue outpatient medications. Diabetes, insulin. Moderate to severe aortic stenosis. Echocardiogram done during this admission demonstrates at least moderate to severe aortic stenosis and moderate aortic insufficiency. Mean gradient 29 mmHg however he aortic valve area is 0.9 cm. By aortic valve area and to severe aortic stenosis however by mean gradient it is moderate aortic stenosis. It is likely that the patient has moderate to severe aortic stenosis. The patient may be a candidate to be evaluated for percutaneous aortic valve surgery. Thank you for your consultation. Please call me if you have any questions. Alex Palafox MD, FACP, FACC, FSCAI, FHRS, CCDS Interventional Cardiology Cardiac Electrophysiology Vascular Medicine and Endovascular Interventions Boris PALAFOX MD Jun 07, 2017 11:03 am
[2017-06-07 12:00] VITALS: BP 100/56
--- NOTE | 2017-06-07 12:52 | Occupational Therapy Eval ---
OT Evaluation-General/PLF Medical Diagnosis Admission Date Jun 06, 2017 at 08:30 Medical Diagnosis: CHF Onset Date: Jun 06, 2017 Therapy Diagnosis Therapy Diagnosis: debility Height/Weight Height (Feet): 5 Height (Inches): 10.00 Weight (Pounds): 214 Weight (Ounces): 4.0 Precautions Precautions/Isolations: Standard Precautions Safety Interventions: None Referral Physician: Amalia Medical History Pertinent Medical History: CAD, DM, Heart Failure, HTN, NM Additional Medical History bilateral rotator cuff surgery, gout, melanoma Reviewed History: Yes Social History Home: Multilevel (bedroom is upstairs) Current Living Status: Spouse Entry Into Home: Stairs Without Railing Steps Into Home: 2 Steps Inside Home: 11 ADL-Prior Level of Function ADL PLOF Comments Pt reports being independent with self care and mobility. No assistive devices. 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 Pt states he is feeling better and hopes to go home tomorrow. Pt as no c/o pain. Mental Status/Objective Patient Orientation: Person, Place, Situation Attachments: Oxygen (2L via nasal cannula) Current Hand Dominance: Right Upper Extremity ROM Grossly WFL Upper Extremity Coordination Intact Upper Extremity Sensation Intact per pt report Upper Extremity Strength Grossly WFL ADL-Treatment ADL-Current Pt supine to sit without assistance. Pt demonstrated ability to doff/don socks independently. Pt sit to stand without assistance. Pt demonstrates ability to perform transfer without assistance. Pt states he has been getting up to restroom independently. Pt has already dressed today. Pt has some shortness of breath with activity, but recovers with rest. Pt states he has no concerns about being able to perform ADLs or transfers. Pt sitting EOB with needs met after session. Functional [place] Measure 0=Not Assessed/NA 4=Minimal Assistance 1=Total Assistance 5=Supervision or Setup 2=Maximal Assistance 6=Modified [place] 3=Moderate Assistance 7=Complete IndependenceIRFPAI Quality Coding Scale 6 Independent with activity with or without an assistive device 5 Patient requires set up or clean up by helper. Patient completes activity by themselves 4 Supervision or touching assist (CGA). [place] provide cues , steadying assist 3 The helper provides less than half the effort to complete the activity 2 The helper provides more than half the effort to complete the activity 1 Dependent. The helper does all the effort to complete an activity 7 Patient refused to complete or attempt activity 9 The patient did not perform the activity before the current illness or injury 88 Not attempted due to Medical conditions or safety concerns Eating (FIM): 7 (pt reports feeding self independently) Lower Body Dressing (FIM): 7 Toileting (FIM): 7 (By pt report) Toilet/Commode Transfer (FIM): 6 (By pt report) Education OT Patient Education: Rehab process Teaching Recipient: Patient Teaching Methods: Discussion Response to Teaching: Verbalize Understanding OT Education/Plan Problem List/Assessment Assessment: No Skilled OT Needs ID'd Pt admitted to hospital secondary to CHF. Pt demonstrates ability to safely perform transfers and basic self care tasks. Pt demonstrates functional strength and balance. Pt is currently at [facility] and does not require skilled OT intervention at this time. Pt has no questions or concerns regarding ADLs or home safety. D/C OT at this time. Discharge Recommendations Plan/Recommendations: Discontinue OT Treatment Plan/Plan of Care Treatment,Training & Education: No Treatment Duration: Jun 07, 2017 Frequency: 1 time per week (One time-Evaluation only) Estimated Hrs Per Day: Other (evaluation only) Rehab Potential: Good Time/GCodes Start Time: 10:30 Stop Time: 10:45 Total Time Billed (hr/min): 15 Billed Treatment Time 1 visit, DARIELA(15minutes) SARBJIT FONSECA OT Jun 07, 2017 12:52
[2017-06-07 16:00] VITALS: BP 102/68
[2017-06-07] MEDS: ENOXAPARIN 40 MG/0.4 ML (LOVENOX) SYR SC SCH (17:49)
[2017-06-07 20:01] VITALS: BP 105/58
[2017-06-07] MEDS: DONEPEZIL 10 MG (ARICEPT) TAB PO SCH (20:37)
[2017-06-07] MEDS: ATORVASTATIN 20 MG (LIPITOR) TABLET PO SCH (20:37)
[2017-06-08] VITALS: BP 121/71
[2017-06-08 04:00] VITALS: BP 139/85
[2017-06-08] MEDS: inSUlin ASPART (NovoLOG) 1 UNIT/0.01 ML (CHARGE PER UNIT) SC SCH ×7 (05:38→20:36)
[2017-06-08 06:20] LABS: BASOPHILS % (AUTO) 0 % (0-10); EOSINOPHILS # (AUTO) 0.3 10^3/uL (0.0-0.3); EOSINOPHILS % (AUTO) 4 % (0-10); HEMATOCRIT 42 % (40-54); HEMOGLOBIN 14.4 G/DL (13.3-17.7); LYMPHOCYTES # (AUTO) 2.2 X 10^3 (1.0-4.0); LYMPHOCYTES % (AUTO) 31 % (12-44); MEAN CORPUSCULAR HEMOGLOBIN 30 PG (25-34); MEAN CORPUSCULAR HGB CONC 35 G/DL (32-36); MEAN CORPUSCULAR VOLUME 87 FL (80-99); MEAN PLATELET VOLUME 9.7 FL (7.4-10.4); MONOCYTES # (AUTO) 0.9 X 10^3 (0.0-1.0); MONOCYTES % (AUTO) 13 % (0-12); NEUTROPHILS # (AUTO) 3.7 X 10^3 (1.8-7.8); NEUTROPHILS % (AUTO) 52 % (42-75); PLATELET COUNT 201 10^3/uL (130-400); RED BLOOD COUNT 4.76 10^6/uL (4.35-5.85); RED CELL DISTRIBUTION WIDTH 13.9 % (10.0-14.5); WHITE BLOOD COUNT 7.1 10^3/uL (4.3-11.0)
[2017-06-08 06:41] LABS: BUN/CREATININE RATIO 30; CALCIUM 9.5 MG/DL (8.5-10.1); CARBON DIOXIDE 22 MMOL/L (21-32); CHLORIDE 101 MMOL/L (98-107); CREATININE SERUM 0.74 MG/DL (0.60-1.30); GFR ESTIMATED > 60; GLUCOSE 114 MG/DL (70-105); POTASSIUM 3.7 MMOL/L (3.6-5.0); SODIUM 136 MMOL/L (135-145)
[2017-06-08] MEDS: FUROSEMIDE 40 MG/4 ML INJ (LASIX) IV SCH ×2 (06:45→17:39)
[2017-06-08 08:00] VITALS: BP 113/53
[2017-06-08] MEDS: ASPIRIN E.C. 81 MG (ECOTRIN) TAB PO SCH (08:24)
[2017-06-08] MEDS: CARVEDILOL 3.125 MG (COREG) TABLET PO SCH ×2 (08:24→20:31)
[2017-06-08] MEDS: RAMIPRIL 5 MG (ALTACE) CAP PO SCH ×2 (08:24→20:31)
[2017-06-08] MEDS: SPIRONOLACTONE 25 MG (ALDACTONE) TAB PO SCH (08:25)
[2017-06-08] MEDS: inSUlin DETERMIR 1 UNIT/0.01 ML (LEVEMIR) CHARGE PER UNIT SQ SCH (08:31)
[2017-06-08] MEDS ORDERED: FUROSEMIDE 40 MG/4 ML INJ (LASIX) IVP ONE (10:00)
[2017-06-08] MEDS ORDERED: PATIENT MAY USE OWN MED,SINGLE MED PO SCH (10:45)
[2017-06-08 12:00] VITALS: BP 108/66
--- NOTE | 2017-06-08 12:19 | Progress Note-Hospitalist ---
Subjective HPI/CC On Admission Date Seen by Provider: Jun 08, 2017 Time Seen by Provider: 12:00 Pt is an 82yoCM with a PMH of CHF, IDDMII, CAD, and HTN who presented to the ER with CC of SOB. He reports he has been short of breath for a few years but has worsened over the past 2-3 days. He has been coughing and producing sputum. He denies any fevers or sick contacts. He has also been feeling very weak. He was normally able to walk 5 miles daily but recently has been limited due to weakness of his lower extremities. He denies any calf pain with walking or other symptoms of claudication. He has had some swelling in his legs as well. He follows with Dr Seals in [place] for his cardiac care. He last saw him 2-3 months ago. His daughter at bedside reports that he is intermittently complaint with his medications (mostly insulin). He thinks on average he takes 3/4 insulin injections per day. Subjective/Events-last exam Pt reports breathing is better. Off oxygen. Has not been urinating in urinal because he forgets. Objective Exam Vital Signs Vital Signs Date Time Temp Pulse Resp B/P (MAP) Pulse Ox O2 Delivery O2 Flow Rate FiO2 06/06/17 06:45 97.8 90 28 109/77 (88) 88 Room Air 06/06/17 08:26 3.00 Capillary Refill : Less Than 3 Seconds General Appearance: No Apparent Distress, WD/WN Respiratory: Lungs Clear, No Respiratory Distress Cardiovascular: Regular Rate, Rhythm, No Murmur Gastrointestinal: Normal Bowel Sounds, Non Tender, Soft Extremity: Non Tender, No Calf Tenderness Neurologic/Psychiatric: Alert, Oriented x3 Results/Procedures Lab Laboratory Tests 06/08/17 05:53 Assessment/Plan Assessment and Plan Assess & Plan/Chief Complaint Acute on chronic systolic heart failure Diagnosis/Problems Diagnosis/Problems (1) CHF exacerbation Status: Acute Assessment & Plan: Will request records from [place] for more recent echo Echo here reveals EF 25% Continue IV Lasix- encouraged using urinal I/Os (inconsistent as he forgets to use urinal) CHF education, fluid restrict Cardiology consulted, appreciate recs Titrate oxygen to keep sats >90 Has ANGIE, BB, Lasix Will get home oxygen study tomorrow Qualifiers: Qualified Codes: I50.23 - Acute on chronic systolic (congestive) heart failure (2) Essential (primary) hypertension Assessment & Plan: Low/normotensive Continue lower dose of coreg (3) CAD (coronary artery disease) Assessment & Plan: No chest pain or signs of ACS Cardiology consulted, appreciate recs Qualifiers: Qualified Codes: I25.10 - Atherosclerotic heart disease of [place] coronary artery without angina pectoris (4) Insulin dependent diabetes mellitus Assessment & Plan: Resume home insulin SSI Carb controlled diet (5) Aortic stenosis Assessment & Plan: Noted on echo Unsure if new Records requested from Dr. Seals Qualifiers: Qualified Codes: I35.0 - Nonrheumatic aortic (valve) stenosis (6) Prophylactic measure Assessment & Plan: Lovenox ADA diet/ Low Na Saline Lock LENNIE GREEN MD Jun 08, 2017 12:18
--- NOTE | 2017-06-08 12:38 | Cardiology Progress Note ---
Cardiology SOAP Progress Note Subjective: Improvement in shortness of breath. Objective: I&O/Vital Signs Vital Sign - Last 12Hours 06/08/17 06/08/17 06/08/17 06/08/17 07:31 07:31 08:00 09:00 Temp 97.1 Pulse 73 Resp 18 B/P (MAP) 113/53 (73) Pulse Ox 92 O2 Delivery Nasal Cannula Nasal Cannula Room Air Nasal Cannula O2 Flow Rate 2.00 2.00 2.00 06/08/17 12:00 Temp 98.4 Pulse 80 Resp 20 B/P (MAP) 108/66 (80) Pulse Ox 93 O2 Delivery Room Air Intake and Output 06/08/17 00:00 Intake Total 1250 ml Output Total 1625 ml Balance -375 ml Weight (Pounds): 214 Weight (Ounces): 4.0 Weight (Calculated Kilograms): 97.991753 Constitutional: appears stated age, AAO x 3 Respiratory: chest is bilaterally symmetric, lungs clear to percussion, lungs clear to auscultation Cardiovascular: regular rate-rhythm, S1 and S2, systolic murmur Gastrointestional: No tender, No soft, No round, No distended, No pulsatile mass, No organomegaly, No guarding, No rebound, No tenderness, No hernia, No mass, No audible bowel sounds, No abnormal bowel sounds, No abdominal bruits, No spleenomegaly, No other Extremities: No normal range of motion, No non-tender, No normal inspection, No pedal edema, No calf tenderness, No normal capillary refill, No pelvis stable , No calf tenderness, No inflammation, No pedal edema, No slow capillary refill , No swelling, No other, No abrasion, No clubbing, No cyanosis, No ecchymosis, No laceration, No no lower extremity edema bilateral, No significant edema, No tenderness, No wound Neurologic/Psychiatric: alert, normal mood/affect, oriented x 3 Skin: No normal color, No warm/dry, No cyanosis, No cool, No diaphoresis, No damp, No ecchymosis, No jaundice, No mottled, No pallor, No rash, No tattoos/ piercings, No ulcerations, No rash on exposed areas, No ulcerations on exposed areas, No other Results/Procedures: Labs Laboratory Tests 06/07/17 17:59: Glucometer 144H 06/07/17 20:32: Glucometer 95 06/08/17 05:34: Glucometer 113H 06/08/17 05:53: White Blood Count 7.1, Red Blood Count 4.76, Hemoglobin 14.4, Hematocrit 42, Mean Corpuscular Volume 87, Mean Corpuscular Hemoglobin 30, Mean Corpuscular Hemoglobin Concent 35, Red Cell Distribution Width 13.9, Platelet Count 201, Mean Platelet Volume 9.7, Neutrophils (%) (Auto) 52, Lymphocytes (%) (Auto) 31, Monocytes (%) (Auto) 13H, Eosinophils (%) (Auto) 4, Basophils (%) (Auto) 0, Neutrophils # (Auto) 3.7, Lymphocytes # (Auto) 2.2, Monocytes # (Auto) 0.9, Eosinophils # (Auto) 0.3, Basophils # (Auto) 0.0, Sodium Level 136, Potassium Level 3.7, Chloride Level 101, Carbon Dioxide Level 22, Anion Gap 13, Blood Urea Nitrogen 22H, Creatinine 0.74, Estimat Glomerular Filtration Rate > 60, BUN /Creatinine Ratio 30, Glucose Level 114H, Calcium Level 9.5 06/08/17 09:37: Glucometer 99 A/P: Assessment/Dx: Acute systolic congestive heart failure, Rule out pneumonia, Possible CAD, Hypertension, Diabetes, Moderate to severe aortic stenosis Plan: Acute systolic congestive heart failure, I have requested all records from Dr. Seals's office which include echocardiogram and any other testing performed. Echocardiogram done this hospitalization which shows severe LV systolic dysfunction with an EF of 30 percent. Elevated BNP. High-dose Lasix. Discussed at length with the patient and family all aspects of care and future plan of action. 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 If no coronary angiography has been performed then the patient will need evaluation of coronary anatomy to rule out ischemic etiology of cardiomyopathy. Will likely require coronary angiography pre-cardiac surgery for aortic stenosis as well. Primary prevention of sudden cardiac with lifevest. Rule out pneumonia, deferred to Dr. Holland. Possible history of CAD, no chest pain. Benign EKG. Hypertension, continue outpatient medications. Diabetes, insulin. Moderate to severe aortic stenosis. Echocardiogram done during this admission demonstrates at least moderate to severe aortic stenosis and moderate aortic insufficiency. Mean gradient 29 mmHg however he aortic valve area is 0.9 cm. By aortic valve area and to severe aortic stenosis however by mean gradient it is moderate aortic stenosis. It is likely that the patient has moderate to severe aortic stenosis. The patient may be a candidate to be evaluated for percutaneous aortic valve surgery. Thank you for your consultation. Please call me if you have any questions. lAex Palafox MD, FACP, FACC, FSCAI, FHRS, CCDS Interventional Cardiology Cardiac Electrophysiology Vascular Medicine and Endovascular Interventions Boris PALAFOX MD Jun 08, 2017 12:38 pm
[2017-06-08] MEDS: CILOSTAZOL 100 MG PO SCH ×2 (13:30→20:32)
[2017-06-08 16:00] VITALS: BP 128/70
[2017-06-08] MEDS: ENOXAPARIN 40 MG/0.4 ML (LOVENOX) SYR SC SCH (17:39)
[2017-06-08 20:00] VITALS: BP 110/72
[2017-06-08] MEDS: DONEPEZIL 10 MG (ARICEPT) TAB PO SCH (20:31)
[2017-06-08] MEDS: ATORVASTATIN 20 MG (LIPITOR) TABLET PO SCH (20:31)
[2017-06-09] VITALS: BP 118/70
[2017-06-09 04:00] VITALS: BP 112/56
--- OUTSIDE RECORDS SUMMARY | 2017-06-09 04:51 | XMS REPORT | Clinical Summary ---
Author Author [facility] Address Unknown Phone Unavailable Care Team Providers [facility] Staff Name Role Phone Sabino Etienne PCP Lainey Freeman MD Unavailable Source Comments Some departments are not documenting in the electronic medical record. If you do not see the information that you expected, contact Release of Information in the Health Information Management department at [phone] for further assistance in locating additional records.[facility] Allergies Active Allergy Reactions Severity Noted Date Comments Adhesive Tape REDNESS 03/17/2008 Current Medications Prescription Sig. Disp. Refills Start End Date Status Date metformin (GLUCOPHAGE) Take 1 Tab by mouth Twice Active 1,000 mg tablet Daily With Meals. rosiglitazone (AVANDIA) 4 Take 1 Tab by mouth Twice Active mg tablet Daily. gemfibrozil (LOPID) 600 Take 1 Tab by mouth Twice Active mg tablet Daily. Colchicine-Probenecid Take 1 Tab by mouth Twice Active 0.5-500 mg Tab Daily. carvedilol (COREG) 6.25 Take 1 Tab by mouth Twice Active mg tablet Daily With Meals. atorvastatin (LIPITOR) 10 Take 1 Tab by mouth At Active mg tablet Bedtime Daily. ezetimibe (ZETIA) 10 mg Take 1 Tab by mouth At Active tablet Bedtime Daily. ramipril (ALTACE) 5 mg Take 1 Cap by mouth Active capsule Daily. CALCIUM + VITAMIN D PO Take 1 Tab by mouth Active Daily. vitamins, multiple Cap Take 1 Cap by mouth Active Daily. Aspirin 81 mg Tab Take 1 Tab by mouth Every Active Mo, We & Fr. (only 3 times weekly due to bleeding tendency-per [facility] Worker). FISH OIL 1,200-144-216 mg Take 1 Cap by mouth Active Cap Daily. Ferrous Gluconate 225 mg Take 1 Tab by mouth Active (27 mg Iron) Tab Daily. Glucosamine Sulfate 1,000 Take 1 Cap by mouth Twice Active mg Cap Daily. hydrocodone/acetaminophen Take 1-2 Tabs by mouth 50 0 03/31/20 Active (VICODIN) 5/500 mg tablet Every 4 Hours as needed 08 for Pain. cephalexin (KEFLEX) 500 Take 1 Cap by mouth Three 21 0 03/31/20 Active mg capsule Times Daily. 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 Social History Tobacco Use Types Packs/Day Years Used Date Former Smoker Cigarettes 1 30.0 Alcohol Use Drinks/Week oz/Week Comments No Sex Assigned at Date Recorded Not on file Last Filed Vital Signs Vital Sign Reading Time Taken Blood Pressure 118/69 03/31/2008 6:00 AM [employer]NITTING TESTER Pulse 85 03/31/2008 6:00 AM [employer]NITTING TE[employer] Temperature 37 C (98.6 F) 03/31/2008 6:00 AM KNITTING TESTER Respiratory Rate - - Oxygen Saturation 98% 03/31/2008 6:00 AM KNITTING TESTER Inhaled Oxygen - - Concentration Weight 100 kg (220 lb 7.4 oz) 03/29/2008 9:00 PM KNITTING TESTER Height - - Body Mass Index - - Plan of Treatment Health Maintenance Due Date Last Done Comments PHYSICAL (COMPREHENSIVE) 1942 EXAM PERTUSSIS VACCINE 1946 TETANUS VACCINE 01/04/1952 SHINGLES VACCINE 1995 PREVNAR/PNEUMOVAX (#1) 01/04/2000 INFLUENZA VACCINE 11/27/2016 Results Not on filefrom Last 3 Months
--- OUTSIDE RECORDS SUMMARY | 2017-06-09 04:53 | XMS REPORT | Clinical Summary ---
Author Author User, [employer] Organization Tanvi Maxwell DO, FACP Address Unknown Phone Allergies, Adverse Reactions, Alerts Allergy Name Reaction Description Start Date Severity Status Provider No Known Allergies Sreedharchina Santana Conditions or Problems Problem Name Problem Code Onset Date Status Entry Date Provider Comment Standard Description Annotate ABDOMINAL PAIN, GENERALIZED 789.07 Resolved Tanvi Maxwell Abdominal pain, generalized DIABETES MELLITUS, NONINSULIN DEPENDENT (NIDDM) 250.02 Active Tanvi Maxwell Diabetes mellitus without mention of complication, type II or unspecified type, uncontrolled HYPERTENSION 401.1 Active Tanvi Maxwell Benign essential hypertension HYPERCHOLESTEROLEMIA 272.0 Active Tanvi Maxwell Pure hypercholesterolemia TRANSAMINASES, SERUM, ELEVATED 790.4 Active Tanvi Maxwell Nonspecific elevation of levels of transaminase or lactic acid dehydrogenase [LDH] CORONARY ATHEROSCLEROSIS, 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 Active Tanvi Maxwell Coronary atherosclerosis of [place] coronary artery HEMATURIA, GROSS 599.7 Resolved Tanvi Maxwell Hematuria ACUTE CHOLECYSTITIS 575.0 Resolved Tanvi Maxwell Acute cholecystitis VACCINE AGAINST STREPTOCOCCUS PNEUMONIAE V03.82 Resolved Tanvi Maxwell Need for prophylactic vaccination against Streptococcus pneumoniae [pneumococcus] PVD 443.9 Active Tanvi Maxwell Peripheral vascular disease, unspecified INTERMITTENT CLAUDICATION 443.9 Resolved Tanvi Maxwell Peripheral vascular disease, unspecified CAROTID ARTERY STENOSIS, WITHOUT INFARCTION 433.10 Active 05/10 Tanvi Maxwell Occlusion and stenosis of carotid artery, without mention of cerebral infarction VERTIGO 780.4 Resolved Tanvi Maxwell Dizziness and giddiness URI 465.9 Resolved Tanvi Maxwell Acute upper respiratory infections of unspecified site BRONCHITIS 490 Inactive Tanvi Maxwell Bronchitis, not specified as acute or chronic SYNCOPE 780.2 Resolved Tanvi Mxawell Syncope and collapse NEUROPATHY, 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 Active Tanvi Maxwell Unspecified idiopathic peripheral neuropathy CHF 428.0 Active Tanvi Maxwell Congestive heart failure, unspecified CLAUDICATION 443.9 Active Tanvi Maxwell Peripheral vascular disease, unspecified DIZZINESS AND GIDDINESS 780.4 Resolved Tanvi Maxwell Dizziness and giddiness Medication List Medication Instructions Start Date Stop Date Generic Name NDC Status Provider Patient Instruction HUMALOG KWIKPEN 100 UNIT/ML SOPN 10 units before meals INSULIN LISPRO (HUMAN) 47782543853 Active Tanvi Maxwell NORVASC 10 MG TAB 1 PO QD AMLODIPINE BESYLATE 35427504926 Active Tanvi Maxwell MECLIZINE HCL 25 MG TAB 1 PO Q6hrs prn dizziness MECLIZINE HCL 02746058195 No Longer Active Tanvi Maxwell MECLIZINE HCL 25 MG TAB 1 PO Q6hrs prn dizziness MECLIZINE HCL 87670245916 Active Tanvi Maxwell MOMETASONE FUROATE 0.1 % CREA apply to affected areas daily MOMETASONE FUROATE 27705051834 Active Tanvi Maxwell NYSTATIN 691808 UNIT/GM CREA apply to affected areas BID for 7 days NYSTATIN 08896758344 No Longer Active Tanvi Darcy Maxwell ALTACE 5 MG CAPS 1 po BID RAMIPRIL 81432642233 Active Tanvi Darcy Maxwell NORVASC 5 MG TAB 1 PO daily AMLODIPINE BESYLATE 85528551208 No Longer Active Tanvi Darcy Maxwell LANTUS SOLOSTAR 100 UNIT/ML SOLN 25 units at night. INSULIN GLARGINE 68924265376 Active Tanvi Darcy Maxwell LIPITOR 10 MG TAB 1 PO daily ATORVASTATIN CALCIUM 04650024825 Active Tanvi Darcy Maxwell PEN NEEDLES 09/11" 31G X 8 MM MISC as directed INSULIN PEN NEEDLE 59637059618 Active Tanvi Darcy Maxwell METFORMIN HCL 1000 MG TABS 1 PO BID METFORMIN HCL 86053117024 No Longer Active Tanvi Darcy Maxwell ULTRAM 50 MG TAB 1 po TID prn pain TRAMADOL HCL 34978403397 No Longer Active Tanvi Darcy Maxwell ZOSTAVAX 70550 UNT/0.65ML SOLR 1 injection once to prevent Shingles ZOSTER VACCINE LIVE 53653446219 No Longer Active Tanviantionette Maxwell GLYBURIDE 1.25 MG TABS 1 PO BID GLYBURIDE 88942833837 No Longer Active Tanvi Darcy Maxwell MOMETASONE FUROATE 0.1 % CREA Apply to affected area BID MOMETASONE FUROATE 48333146615 No Longer Active Tanvi Darcy Maxwell ASPIRIN 81 MG TAB 1 PO daily ASPIRIN 57325779029 Active Tanvi Darcy Maxwell OMEPRAZOLE 20 MG CPDR 1 PO daily OMEPRAZOLE 09879126641 No Longer Active Tanvi Darcy Maxwell COLCHICINE-PROBENECID 0.5-500 MG TABS 1 po BID COLCHICINE-PROBENECID 18750839748 No Longer Active Tanvi Darcy Maxwell LIPITOR 40 MG TAB 1 PO daily ATORVASTATIN CALCIUM 09207549106 No Longer Active Tanvi Darcy Maxwell METFORMIN HCL 1000 MG TABS 1 po BID METFORMIN HCL 98299924591 No Longer Active Tanvi Darcy Maxwell JANUVIA 100 MG TABS 1 PO daily SITAGLIPTIN PHOSPHATE 65589337008 No Longer Active Tanvi Darcy Maxwell K-DUR 10 MEQ TAB CR 1 PO daily POTASSIUM CHLORIDE Active Tanvi Darcy Maxwell PLAVIX 75 MG TABS 1 PO QD CLOPIDOGREL BISULFATE 65514192141 No Longer Active Tanvi Darcy Maxwell ROBITUSSIN A-C 10-100 MG/5ML SYRUP 1 teaspoon PO Q 4-6 hr prn ROBITUSSIN A-C 10-100 MG/5ML SYRUP No Longer Active Tanvi Darcy Maxwell AMOXICILLIN 500 MG CAP 1 PO TID AMOXICILLIN 58927288528 No Longer Active Tanvi Darcy Maxwell ZETIA 10 MG TABS 1 po daily EZETIMIBE 71327925810 No Longer Active Tanvi Darcy Maxwell AGGRENOX 25-200 MG EM96R-OZC 1 PO BID ASPIRIN-DIPYRIDAMOLE 29256253778 No Longer Active Tanvi Darcy Maxwell GEMFIBROZIL 600 MG TABS 1 po BID GEMFIBROZIL 90421362342 No Longer Active Tanvi Darcy Maxwell LIPITOR 20 MG TAB 1 PO QD ATORVASTATIN CALCIUM 58337853371 No Longer Active Tanvi Darcy Maxwell LIPITOR 20 MG TAB 1 PO QD ATORVASTATIN CALCIUM 68481273614 No Longer Active Tanvi Darcy Maxwell DIABETA 1.25 MG TABS 1 PO QAM GLYBURIDE 34130759825 No Longer Active Tanvi Darcy Maxwell AVANDIA 4 MG TABS 1 po BID ROSIGLITAZONE MALEATE 26325233488 No Longer Active Tanvi Maxwell A THRU Z ADVANCED TABS 1 po daily MULTIPLE VITAMINS-MINERALS 75386270215 Active Tanvi Maxwell FISH OIL 1000 MG CAPS 1 po daily OMEGA-3 FATTY ACIDS 86778126261 Active Tanvi Maxwell CALCIUM 600/VITAMIN D 600-400 MG-UNIT TABS 1 po daily CALCIUM CARBONATE-VITAMIN D 15228627539 Active Tanvi Maxwell ASPIRIN 81 MG TAB 1 PO daily ASPIRIN 51976491776 No Longer Active Tanvi Maxwell COREG 6.25 MG TABS 1 po BID CARVEDILOL 81141819252 Active Tanvi Maxwell Immunizations Vaccine Administration Date Value Standard Description pneumococcal immunization administered First Dose pneumococcal polysaccharide vaccine, 23 valent Vital Signs Date Name Value Unit Range Description blood pressure, diastolic - 8462-4 85 mm[Hg] BP miramontes blood pressure, systolic - 8480-6 125 mm[Hg] BP sys pulse rate E&M - 8867-4 78 /min Heart rate respiratory rate E&M - 9279-1 14 /min Resp rate temperature E&M 98.6 [degF] Body temperature weight E&M - 3141-9 229 [lb_av] Weight Measured blood pressure, diastolic - 8462-4 88 mm[Hg] BP miramontes blood pressure, systolic - 8480-6 138 mm[Hg] BP sys pulse rate E&M - 8867-4 66 /min Heart rate respiratory rate E&M - 9279-1 14 /min Resp rate weight E&M - 3141-9 225 [lb_av] Weight Measured blood pressure, diastolic - 8462-4 76 mm[Hg] BP miramontes blood pressure, systolic - 8480-6 130 mm[Hg] BP sys pulse rate E&M - 8867-4 64 /min Heart rate respiratory rate E&M - 9279-1 14 /min Resp rate weight E&M - 3141-9 221 [lb_av] Weight Measured blood pressure, diastolic - 8462-4 88 mm[Hg] BP miramontes blood pressure, systolic - 8480-6 138 mm[Hg] BP sys pulse rate E&M - 8867-4 70 /min Heart rate respiratory rate E&M - 9279-1 14 /min Resp rate weight E&M - 3141-9 230 [lb_av] Weight Measured blood pressure, diastolic - 8462-4 108 mm[Hg] BP miramontes blood pressure, systolic - 8480-6 168 mm[Hg] BP sys pulse rate E&M - 8867-4 80 /min Heart rate respiratory rate E&M - 9279-1 14 /min Resp rate temperature E&M 98.6 [degF] Body temperature weight E&M - 3141-9 223 [lb_av] Weight Measured Diagnostic Results Date Name Value Unit Range Description Clinical Lists Update: CBC,CMP [facility] - Chemistry Estimated Glomerular Filtration Rate (calc) >60 mL/min/1.73m2 glucose, plasma fasting 151 mg/dL albumin, serum 4.1 g/dL alkaline phosphatase, serum 90 U/L urea nitrogen, blood 19 mg/dL calcium, serum 9.6 mg/dL chloride, serum 101 mmol/L carbon dioxide, venous blood 24 mmol/L creatinine, serum 0.87 mg/dL potassium, serum 4.0 mmol/L protein, total, serum 7.1 g/dL aspartate aminotransferase (SGOT), serum 21 U/L alanine aminotransferase (SGPT), serum 25 U/L bilirubin, serum, total 0.7 mg/dL sodium, serum 135 mmol/L sodium, serum 135 mmol/L bilirubin, serum, total 0.7 mg/dL alanine aminotransferase (SGPT), serum 25 U/L aspartate aminotransferase (SGOT), serum 21 U/L protein, total, serum 7.1 g/dL potassium, serum 4.0 mmol/L creatinine, serum 0.87 mg/dL carbon dioxide, venous blood 24 mmol/L chloride, serum 101 mmol/L calcium, serum 9.6 mg/dL urea nitrogen, blood 19 mg/dL alkaline phosphatase, serum 90 U/L albumin, serum 4.1 g/dL Estimated Glomerular Filtration Rate (calc) >60 mL/min/1.73m2 glucose, plasma fasting 151 mg/dL Clinical Lists Update: CBC,CMP [facility] - Hematology erythrocyte (RBC) count 4.72 10*6/mm3 leukocyte count, blood 7.3 10*3/mm3 mean corpuscular volume, RBC 91 fL red blood cell distribution width 13.2 % hematocrit, blood 43 % hemoglobin, blood 14.7 g/dL hematocrit, blood 43 % erythrocyte (RBC) count 4.72 10*6/mm3 leukocyte count, blood 7.3 10*3/mm3 mean corpuscular volume, RBC 91 fL red blood cell distribution width 13.2 % hemoglobin, blood 14.7 g/dL platelet count 186 10*3/mm3 platelet count 186 10*3/mm3 Clinical Lists Update: CMP,CHOL,TRIG,HGA1C - Chemistry Estimated Glomerular Filtration Rate (calc) >60 mL/min/1.73m2 albumin, serum 4.0 g/dL anion gap, serum 8 sodium, serum 134 mmol/L triglyceride, serum, fasting 125 mg/dL bilirubin, serum, total 0.6 mg/dL alanine aminotransferase (SGPT), serum 24 U/L aspartate aminotransferase (SGOT), serum 21 U/L protein, total, serum 7.6 g/dL potassium, serum 4.2 mmol/L hemoglobin A1C, blood, as % of total hemoglobin 9.7 % creatinine, serum 0.82 mg/dL carbon dioxide, venous blood 25 mmol/L cholesterol, serum 139 mg/dL chloride, serum 101 mmol/L calcium, serum 10.0 mg/dL urea nitrogen, blood 18 mg/dL alkaline phosphatase, serum 79 U/L glucose, plasma fasting 225 mg/dL Clinical Lists Update: CMP,Chol,Trig,TSH - Chemistry alkaline phosphatase, serum 95 U/L albumin, serum 3.9 g/dL urea nitrogen, blood 21 mg/dL calcium, serum 9.1 mg/dL chloride, serum 100 mmol/L cholesterol, serum 164 mg/dL carbon dioxide, venous blood 27 mmol/L creatinine, serum 0.87 mg/dL thyroid stimulating hormone, serum 0.83 u[iU]/mL potassium, serum 4.5 mmol/L protein, total, serum 7.5 g/dL aspartate aminotransferase (SGOT), serum 41 U/L alanine aminotransferase (SGPT), serum 59 U/L bilirubin, serum, total 0.9 mg/dL triglyceride, serum, fasting 152 mg/dL sodium, serum 134 mmol/L glucose, plasma fasting 225 mg/dL Estimated Glomerular Filtration Rate (calc) >60 mL/min/1.73m2 Clinical Lists Update: CMP,FLP DR [facility] - Chemistry albumin, serum 3.8 g/dL glucose, plasma fasting 218 mg/dL urea nitrogen, blood 13 mg/dL calcium, serum 9.2 mg/dL chloride, serum 100 mmol/L cholesterol, serum 146 mg/dL carbon dioxide, venous blood 28 mmol/L creatinine, serum 0.74 mg/dL HDL cholesterol, serum 38 mg/dL LDL cholesterol, serum 85 mg/dL potassium, serum 3.8 mmol/L protein, total, serum 7.4 g/dL aspartate aminotransferase (SGOT), serum 34 U/L alanine aminotransferase (SGPT), serum 41 U/L bilirubin, serum, total 1.0 mg/dL triglyceride, serum, fasting 114 mg/dL sodium, serum 134 mmol/L anion gap, serum 6 alkaline phosphatase, serum 70 U/L Clinical Lists Update: CMP,HGA1C,CHOL,TRIG - Chemistry Estimated Glomerular Filtration Rate (calc) >60 mL/min/1.73m2 glucose, plasma fasting 196 mg/dL sodium, serum 133 mmol/L triglyceride, serum, fasting 122 mg/dL bilirubin, serum, total 1.0 mg/dL alanine aminotransferase (SGPT), serum 41 U/L aspartate aminotransferase (SGOT), serum 34 U/L protein, total, serum 7.7 g/dL potassium, serum 4.2 mmol/L hemoglobin A1C, blood, as % of total hemoglobin 9.0 % creatinine, serum 0.78 mg/dL carbon dioxide, venous blood 25 mmol/L cholesterol, serum 147 mg/dL chloride, serum 98 mmol/L calcium, serum 9.5 mg/dL urea nitrogen, blood 16 mg/dL alkaline phosphatase, serum 82 U/L albumin, serum 4.2 g/dL Clinical Lists Update: DR [facility] - Chemistry Estimated Glomerular Filtration Rate (calc) >60 mL/min/1.73m2 glucose, plasma fasting 332 mg/dL anion gap, serum 5 sodium, serum 131 mmol/L potassium, serum 4.5 mmol/L creatinine, serum 0.88 mg/dL carbon dioxide, venous blood 29 mmol/L chloride, serum 97 mmol/L calcium, serum 9.7 mg/dL urea nitrogen, blood 18 mg/dL Clinical Lists Update: HgA1c - Chemistry hemoglobin A1C, blood, as % of total hemoglobin 9.4 % Encounters Code Encounter Date Provider Facility CPT-13844 Ofc Vst, Est Level IV 12:23:31 CDT Tanvi Maxwell DO, FACP CPT-08856 Ofc Vst, Est Level IV 15:58:50 [employer] SUPPORT SPECIALIST Tanvi Maxwell DO, FACP CPT-11877 Ofc Vst, Est Level III 17:11:21 CDT Tanvi Maxwell DO, FACP CPT-05283 Ofc Vst, Est Level IV 17:26:57 CDT Tanvi Maxwell DO, FACP CPT-16314 Ofc Vst, Est Level IV 17:19:12 CDT Tanvi Maxwell DO, FACP CPT-77961 Ofc Vst, Est Level IV 21:31:17 CDT Tanvi Darcy Maxwell Tanvi S Maxwell, DO, FACP CPT-69892 Ofc Vst, Est Level III 20:13:43 CDT Tanvi Darcy Jiang Maxwell, DO, FACP CPT-37263 Ofc Vst, Est Level IV 20:47:14 [employer] SUPPORT SPECIALIST Tanvi Jiang Maxwell, DO, FACP CPT-34886 Ofc Vst, Est Level IV 13:05:04 SOFTWARE SUPPORT SPECIALIST Tanvi Darcy Jiang Maxwell, DO, FACP CPT-45940 Ofc Vst, Est Level III 12:45:28 SOFTWARE SUPPORT SPECIALIST Tanvi Jiang Hans, DO, FACP CPT-19434 Ofc Vst, Est Level III 14:30:14 CDT Tanvi Darcy Jiang Hans, DO, FACP CPT-99893 Ofc Vst, Est Level IV 09:01:55 CDT Tanvi Darcy Jiang Hans, DO, FACP CPT-90558 Ofc Vst, Est Level III 07:24:19 SOFTWARE SUPPORT SPECIALIST Tanvi Jiang Hans, DO, FACP CPT-24458 Ofc Vst, Est Level IV 14:58:24 CDT Tanvi Jiang Hans, DO, FACP CPT-81643 Ofc Vst, Est Level IV 15:08:18 SOFTWARE SUPPORT SPECIALIST Tanviantionette Jiang Hans, DO, FACP CPT-39165 Ofc Vst, Est Level V 13:56:35 CDT Tanvi Darcy Jiang Hans, DO, FACP CPT-30088 Ofc Vst, Est Level IV 14:32:48 CDT Tanvi Darcy Jiang Hans, DO, FACP CPT-49644 Ofc Vst, Est Level IV 11:12:51 CDT Tanvi Darcy Jiang Hans, DO, FACP CPT-28212 Ofc Vst, Est Level IV 11:55:25 SOFTWARE SUPPORT SPECIALIST Tanvi Jiang Maxwell, DO, FACP CPT-15780 Ofc Vst, Est Level IV 11:33:32 CDT Tanvi Jiang Maxwell, DO, FACP CPT-39284 Ofc Vst, Est Level IV 12:06:37 CDT Tanvi Jiang Maxwell, DO, FACP CPT-05142 Ofc Vst, Est Level IV 11:49:47 CDT Tanvi Jiang Maxwell, DO, FACP CPT-16106 Ofc Vst, Est Level V 11:14:49 CDT Tanvi Jiang Maxwell, DO, FACP CPT-73295 Ofc Vst, New Level IV 13:51:48 CDT Tanvi Jiang Maxwell, DO, FACP Procedures Code Procedure Name Date Entry Date Standard Description CPT-G0439 Medicare Annual Wellness Visit 16:48:04 SOFTWARE SUPPORT SPECIALIST CPT-G8443 E-Prescribing Medication Sent 21:31:17 CDT CPT-G8443 E-Prescribing Medication Sent 20:13:43 CDT CPT-G8443 E-Prescribing Medication Sent 20:47:14 SOFTWARE SUPPORT SPECIALIST CPT-G8445 E-Prescribing Not sent due to no medication given 13:05: 04 SOFTWARE SUPPORT SPECIALIST CPT-G8446 E-Prescribing not done due to controlled substance 12:45 :28 SOFTWARE SUPPORT SPECIALIST CPT-G8445 E-Prescribing Not sent due to no medication given 21:27: 51 SOFTWARE SUPPORT SPECIALIST CPT-G0439 Medicare Annual Wellness Visit 21:27:51 SOFTWARE SUPPORT SPECIALIST CPT-G8446 E-Prescribing not done due to controlled substance 14:30 :14 CDT CPT-G8446 E-Prescribing not done due to controlled substance 09:01 :55 CDT CPT-G8445 E-Prescribing Not sent due to no medication given 07:24: 19 SOFTWARE SUPPORT SPECIALIST CPT-G8445 E-Prescribing Not sent due to no medication given 15:33: 27 CDT CPT-G0438 Medicare Annual Wellness Visit Initial 15:33:27 CDT CPT-88896 Injection, Pneumovax 11:33:32 CDT
--- OUTSIDE RECORDS SUMMARY | 2017-06-09 04:55 | XMS REPORT | Clinical Summary ---
Author Author User, [employer] 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 INSULIN GLARGINE 78078097853 Active Tanvi Maxwell HUMALOG KWIKPEN 100 UNIT/ML SOPN 20 units before meals INSULIN LISPRO ( HUMAN) 19728065821 Active Tanvi Maxwell NORVASC 10 MG TAB 1 PO QD AMLODIPINE BESYLATE 60022270703 Active Tanvi Maxwell MECLIZINE HCL 25 MG TAB 1 PO Q6hrs prn dizziness MECLIZINE HCL 36084009615 No Longer Active Tanvi Maxwell MECLIZINE HCL 25 MG TAB 1 PO Q6hrs prn dizziness MECLIZINE HCL 43703207174 Active Tanvi Maxwell MOMETASONE FUROATE 0.1 % CREA apply to affected areas daily MOMETASONE FUROATE 29783587977 Active Tanvi Darcy Maxwell NYSTATIN 277067 UNIT/GM CREA apply to affected areas BID for 7 days NYSTATIN 61004598491 No Longer Active Tanvi Darcy Maxwell ALTACE 5 MG CAPS 1 po BID RAMIPRIL 56176302629 Active Tanvi Darcy Maxwell NORVASC 5 MG TAB 1 PO daily AMLODIPINE BESYLATE 60895734033 No Longer Active Tanvi Darcy Maxwell LIPITOR 10 MG TAB 1 PO daily ATORVASTATIN CALCIUM 30455938982 Active Tanviantionette Maxwell PEN NEEDLES 09/11" 31G X 8 MM MISC as directed INSULIN PEN NEEDLE 72256540226 Active Tanviantionette Maxwell METFORMIN HCL 1000 MG TABS 1 PO BID METFORMIN HCL 05614818079 No Longer Active Tanviantionette Maxwell ULTRAM 50 MG TAB 1 po TID prn pain TRAMADOL HCL 12325378099 No Longer Active Tanviantionette Maxwell ZOSTAVAX 41841 UNT/0.65ML SOLR 1 injection once to prevent Shingles ZOSTER VACCINE LIVE 53485170690 No Longer Active Tanviantionette Maxwell GLYBURIDE 1.25 MG TABS 1 PO BID GLYBURIDE 90333061248 No Longer Active Tanviantionette Maxwell MOMETASONE FUROATE 0.1 % CREA Apply to affected area BID MOMETASONE FUROATE 27608946455 No Longer Active Tanviantionette Maxwell ASPIRIN 81 MG TAB 1 PO daily ASPIRIN 15358336007 Active Tanviantionette Maxwell OMEPRAZOLE 20 MG CPDR 1 PO daily OMEPRAZOLE 17052805906 No Longer Active Tanviantionette Maxwell COLCHICINE-PROBENECID 0.5-500 MG TABS 1 po BID COLCHICINE-PROBENECID 07775902645 No Longer Active Tanvi Darcy Maxwell LIPITOR 40 MG TAB 1 PO daily ATORVASTATIN CALCIUM 17192477702 No Longer Active Tanvi Darcy Maxwell METFORMIN HCL 1000 MG TABS 1 po BID METFORMIN HCL 38863586435 No Longer Active Tanvi Darcy Maxwell JANUVIA 100 MG TABS 1 PO daily SITAGLIPTIN PHOSPHATE 65090173671 No Longer Active Tanvi Darcy Maxwell K-DUR 10 MEQ TAB CR 1 PO daily POTASSIUM CHLORIDE Active Tanvi Darcy Maxwell PLAVIX 75 MG TABS 1 PO QD CLOPIDOGREL BISULFATE 74287758299 No Longer Active Tanvi Darcy Maxwell ROBITUSSIN A-C 10-100 MG/5ML SYRUP 1 teaspoon PO Q 4-6 hr prn ROBITUSSIN A-C 10-100 MG/5ML SYRUP No Longer Active Tanvi Darcy Maxwell AMOXICILLIN 500 MG CAP 1 PO TID AMOXICILLIN 22929919804 No Longer Active Tanvi Darcy Maxwell ZETIA 10 MG TABS 1 po daily EZETIMIBE 71617606806 No Longer Active Tanvi Darcy Maxwell AGGRENOX 25-200 MG XN50O-QCF 1 PO BID ASPIRIN-DIPYRIDAMOLE 29000174116 No Longer Active Tanvi Darcy Maxwell GEMFIBROZIL 600 MG TABS 1 po BID GEMFIBROZIL 00547842804 No Longer Active Tanvi Darcy Maxwell LIPITOR 20 MG TAB 1 PO QD ATORVASTATIN CALCIUM 40635681228 No Longer Active Tanvi Darcy Maxwell LIPITOR 20 MG TAB 1 PO QD ATORVASTATIN CALCIUM 27636149859 No Longer Active Tanvi Darcy Maxwell DIABETA 1.25 MG TABS 1 PO QAM GLYBURIDE 00751109789 No Longer Active Tanvi Darcy Maxwell AVANDIA 4 MG TABS 1 po BID ROSIGLITAZONE MALEATE 36021325215 No Longer Active Tanvi Maxwell A THRU Z ADVANCED TABS 1 po daily MULTIPLE VITAMINS-MINERALS 01660250827 Active Tanvi Maxwell FISH OIL 1000 MG CAPS 1 po daily OMEGA-3 FATTY ACIDS 23206591971 Active Tanvi Maxwell CALCIUM 600/VITAMIN D 600-400 MG-UNIT TABS 1 po daily CALCIUM CARBONATE-VITAMIN D 43355795247 Active Tanvi Maxwell ASPIRIN 81 MG TAB 1 PO daily ASPIRIN 57564171596 No Longer Active Tanvi Maxwell COREG 6.25 MG TABS 1 po BID CARVEDILOL 43883080753 Active Tanvi Maxwell Immunizations Vaccine Administration Date Value Standard Description pneumococcal immunization administered First Dose pneumococcal polysaccharide vaccine, 23 valent Vital Signs Date Name Value Unit Range Description blood pressure, diastolic - 8462-4 76 mm[Hg] BP miramontes blood pressure, systolic - 8480-6 128 mm[Hg] BP sys pulse rate E&M - 8867-4 72 /min Heart rate respiratory rate E&M - 9279-1 14 /min Resp rate temperature E&M 98.6 [degF] Body temperature weight E&M - 3141-9 227 [lb_av] Weight Measured blood pressure, diastolic - 8462-4 85 mm[Hg] [...] Filtration Rate (calc) >60 mL/min/1.73m2 albumin, serum 4.1 g/dL sodium, serum 135 mmol/L bilirubin, serum, total [...] >60 mL/min/1.73m2 glucose, plasma fasting 151 mg/dL sodium, serum 135 mmol/L bilirubin, serum, total 0.7 mg/dL alanine aminotransferase (SGPT), serum 25 U/L aspartate aminotransferase (SGOT), serum 21 U/L protein, total, serum 7.1 g/dL potassium, serum 4.0 mmol/L creatinine, serum 0.87 mg/dL carbon dioxide, venous blood 24 mmol/L chloride, serum 101 mmol/L calcium, serum 9.6 mg/dL urea nitrogen, blood 19 mg/dL alkaline phosphatase, serum 90 U/L glucose, plasma fasting 151 mg/dL Clinical Lists Update: CBC,CMP DR [facility] - Hematology red blood cell distribution width 13.2 % mean corpuscular volume, RBC 91 fL leukocyte count, blood 7.3 10*3/mm3 erythrocyte (RBC) count 4.72 10*6/mm3 platelet count 186 10*3/mm3 hemoglobin, blood 14.7 g/dL hematocrit, blood 43 % red blood cell distribution width 13.2 % mean corpuscular volume, RBC 91 fL leukocyte count, blood 7.3 10*3/mm3 erythrocyte (RBC) count 4.72 10*6/mm3 platelet count 186 10*3/mm3 hemoglobin, blood 14.7 g/dL hematocrit, blood 43 % Clinical Lists Update: CBC,CMP,FLP,HgA1c,Microalbumin - Chemistry Estimated Glomerular Filtration Rate (calc) >60 mL/min/1.73m2 albumin, serum 3.9 g/dL alkaline phosphatase, serum 106 U/L urea nitrogen, blood 17 mg/dL calcium, serum 9.4 mg/dL chloride, serum 101 mmol/L cholesterol, serum 160 mg/dL carbon dioxide, venous blood 25 mmol/L glucose, plasma fasting 296 mg/dL anion gap, serum 6 sodium, serum 132 mmol/L triglyceride, serum, fasting 110 mg/dL bilirubin, serum, total 0.8 mg/dL alanine aminotransferase (SGPT), serum 22 U/L aspartate aminotransferase (SGOT), serum 25 U/L protein, total, serum 7.2 g/dL potassium, serum 4.3 mmol/L LDL cholesterol, serum 101 mg/dL HDL cholesterol, serum 37 mg/dL creatinine, serum 0.74 mg/dL Clinical Lists Update: CBC,CMP,FLP,HgA1c,Microalbumin - Hematology platelet count 164 10*3/mm3 erythrocyte (RBC) count 4.92 10*6/mm3 leukocyte count, blood 5.3 10*3/mm3 mean corpuscular volume, RBC 90.7 fL red blood cell distribution width 12.7 % hemoglobin, blood 15.6 g/dL hematocrit, blood 44.6 % Clinical Lists Update: CBC,CMP,FLP,HgA1c,Microalbumin - Urinalysis microalbumin, urine, semiquantitative 1.1 mg/dL Clinical Lists Update: CMP,CHOL,TRIG,HGA1C - Chemistry Estimated Glomerular Filtration Rate (calc) >60 mL/min/1.73m2 glucose, plasma fasting 225 mg/dL anion gap, serum 8 sodium, serum 134 [...] 18 mg/dL alkaline phosphatase, serum 79 U/L albumin, serum 4.0 g/dL Clinical Lists Update: CMP,Chol,Trig,TSH - Chemistry potassium, serum 4.5 mmol/L albumin, serum 3.9 g/dL creatinine, serum 0.87 mg/dL carbon dioxide, venous blood 27 mmol/L cholesterol, serum 164 mg/dL chloride, serum 100 mmol/L calcium, serum 9.1 mg/dL urea nitrogen, blood 21 mg/dL alkaline phosphatase, serum 95 U/L protein, total, serum 7.5 g/dL aspartate aminotransferase (SGOT), serum 41 U/L alanine aminotransferase (SGPT), serum 59 U/L bilirubin, serum, total 0.9 mg/dL triglyceride, serum, fasting 152 mg/dL sodium, serum 134 mmol/L glucose, plasma fasting 225 mg/dL Estimated Glomerular Filtration Rate (calc) >60 mL/min/1.73m2 thyroid stimulating hormone, serum 0.83 u[iU]/mL Clinical Lists Update: CMP,FLP DR [facility] - Chemistry potassium, serum 3.8 mmol/L protein, total, serum 7.4 g/dL aspartate aminotransferase (SGOT), serum 34 U/L alanine aminotransferase (SGPT), serum 41 U/L bilirubin, serum, total 1.0 mg/dL triglyceride, serum, fasting 114 mg/dL sodium, serum 134 mmol/L anion gap, serum 6 glucose, plasma fasting 218 mg/dL LDL cholesterol, serum 85 mg/dL albumin, serum 3.8 g/dL alkaline phosphatase, serum 70 U/L urea nitrogen, blood 13 mg/dL calcium, serum 9.2 mg/dL chloride, serum 100 mmol/L cholesterol, serum 146 mg/dL carbon dioxide, venous blood 28 mmol/L creatinine, serum 0.74 mg/dL HDL cholesterol, serum 38 mg/dL Clinical Lists Update: CMP,HGA1C,CHOL,TRIG - Chemistry alkaline phosphatase, serum 82 U/L albumin, serum 4.2 g/dL calcium, serum 9.5 mg/dL chloride, serum 98 mmol/L cholesterol, serum 147 mg/dL carbon dioxide, venous blood 25 mmol/L creatinine, serum 0.78 mg/dL hemoglobin A1C, blood, as % of total hemoglobin 9.0 % Estimated Glomerular Filtration Rate (calc) >60 mL/min/1.73m2 glucose, plasma fasting 196 mg/dL sodium, serum 133 mmol/L triglyceride, serum, fasting 122 mg/dL bilirubin, serum, total 1.0 mg/dL alanine aminotransferase (SGPT), serum 41 U/L aspartate aminotransferase (SGOT), serum 34 U/L protein, total, serum 7.7 g/dL potassium, serum 4.2 mmol/L urea nitrogen, blood 16 mg/dL Clinical Lists Update: DR [facility] - Chemistry Estimated Glomerular Filtration Rate (calc) >60 mL/min/1.73m2 glucose, plasma fasting 332 mg/dL anion gap, serum 5 sodium, serum 131 mmol/L urea nitrogen, blood 18 mg/dL creatinine, serum 0.88 mg/dL carbon dioxide, venous blood 29 mmol/L chloride, serum 97 mmol/L calcium, serum 9.7 mg/dL potassium, serum 4.5 mmol/L Clinical Lists Update: HgA1c - Chemistry hemoglobin A1C, blood, as % of total hemoglobin 9.4 % hemoglobin A1C, blood, as % of total hemoglobin 11.5 % Encounters Code Encounter Date Provider Facility [id number] Ofc Vst, Est Level IV 17:04:54 CDT Tanvi Maxwell DO, FACP CPT-20103 Ofc Vst, Est Level IV 12:23:31 CDT Tanvi Maxwell DO, FACP CPT-69800 Ofc Vst, Est Level IV 15:58:50 [employer] Tanvi Maxwell DO, FACP CPT-61840 Ofc Vst, Est Level III 17:11:21 CDT Tanvi Darcy Jiang Maxwell, DO, FACP CPT-93484 Ofc Vst, Est Level IV 17:26:57 CDT Atnvi Darcy Tinajero S Maxwell, DO, FACP CPT-57376 Ofc Vst, Est Level IV 17:19:12 CDT Tanvi Darcy Jiang Maxwell, DO, FACP CPT-68214 Ofc Vst, Est Level IV 21:31:17 CDT Tanvi Darcy Tinajero S Maxwell, DO, FACP CPT-50748 Ofc Vst, Est Level III 20:13:43 CDT Tanvi Darcy Tinajero S Maxwell, DO, FACP CPT-10423 Ofc Vst, Est Level IV 20:47:14 [employer] Tanvi Darcy Jiang Hans, DO, FACP CPT-76423 Ofc Vst, Est Level IV 13:05:04 [employer] Tanvi Darcy Tinajero S Maxwell, DO, FACP CPT-07367 Ofc Vst, Est Level III 12:45:28 [employer] Tanvi Tinajero S Maxwell, DO, FACP CPT-87507 Ofc Vst, Est Level III 14:30:14 CDT Tanviantionette Jiang Hans, DO, FACP CPT-81310 Ofc Vst, Est Level IV 09:01:55 CDT Tanvi Darcy Jiang Maxwell, DO, FACP CPT-00708 Ofc Vst, Est Level III 07:24:19 [employer] Tanvi Darcy Tinajero S Maxwell, DO, FACP CPT-33683 Ofc Vst, Est Level IV 14:58:24 CDT Tanvi Darcy Tinajero S Maxwell, DO, FACP CPT-86408 Ofc Vst, Est Level IV 15:08:18 [employer] Tanvi Darcy Jiang Hans, DO, FACP CPT-94705 Ofc Vst, Est Level V 13:56:35 CDT Tanvi Darcy Jiang Hans, DO, FACP CPT-62219 Ofc Vst, Est Level IV 14:32:48 CDT Tanvi Darcy Jiang Hans, DO, FACP CPT-18983 Ofc Vst, Est Level IV 11:12:51 CDT Tanvi Darcy Jiang Hans, DO, FACP CPT-54189 Ofc Vst, Est Level IV 11:55:25 [employer] Tanviantionette Jiang Hans, DO, FACP CPT-02075 Ofc Vst, Est Level IV 11:33:32 CDT Tanvi Darcy Jiang Hans, DO, FACP CPT-60619 Ofc Vst, Est Level IV 12:06:37 CDT Tanvi Darcy Jiang Hans, DO, FACP CPT-92076 Ofc Vst, Est Level IV 11:49:47 CDT Tanvi Jiang Hans, DO, FACP CPT-85645 Ofc Vst, Est Level V 11:14:49 CDT Tanvi Jiang Hans, DO, FACP CPT-86243 Ofc Vst, New Level IV 13:51:48 CDT Tanviantionette Jiang Hans, DO, FACP Procedures Code Procedure Name Date Entry Date Standard Description CPT-G0439 Medicare Annual Wellness Visit 16:48:04 [employer] CPT-G8443 E-Prescribing Medication Sent 21:31:17 CDT CPT-G8443 E-Prescribing Medication Sent 20:13:43 CDT CPT-G8443 E-Prescribing Medication Sent 20:47:14 [employer] CPT-G8445 E-Prescribing Not sent due to no medication given 13:05: 04 [employer] CPT-G8446 E-Prescribing not done due to controlled substance 12:45 :28 [employer] CPT-G8445 E-Prescribing Not sent due to no medication given 21:27: 51 [employer] CPT-G0439 Medicare Annual Wellness Visit 21:27:51 [employer] CPT-G8446 E-Prescribing not done due to controlled substance 14:30 :14 CDT CPT-G8446 E-Prescribing not done due to controlled substance 09:01 :55 CDT CPT-G8445 E-Prescribing Not sent due to no medication given 07:24: 19 [employer] CPT-G8445 E-Prescribing Not sent due to no medication given 15:33: 27 CDT CPT-G0438 Medicare Annual Wellness Visit Initial 15:33:27 CDT CPT-62503 Injection, Pneumovax 11:33:32 CDT
--- OUTSIDE RECORDS SUMMARY | 2017-06-09 04:56 | XMS REPORT | Clinical Summary ---
Author Author User, [employer] Tanvi Maxwell DO, FACP Address Unknown Phone [...] or lactic acid dehydrogenase [LDH] CORONARY ATHEROSCLEROSIS, [place] [facility] 414.01 Active Tanvi Maxwell Coronary atherosclerosis of [place] coronary artery HEMATURIA, GROSS 599.7 Resolved Tanvi [...] Patient Instruction HUMALOG KWIKPEN 100 UNIT/ML SOPN 20 units before meals INSULIN LISPRO ( HUMAN) 32369450566 Active Tanvi Maxwell LANTUS SOLOSTAR 100 UNIT/ML SOLN 35 units at night. INSULIN GLARGINE 24315516568 Active Tanvi Maxwell NORVASC 10 MG TAB 1 PO QD AMLODIPINE BESYLATE 99298260609 Active Tanvi Maxwell MECLIZINE HCL 25 MG TAB 1 PO Q6hrs prn dizziness MECLIZINE HCL 40130236423 No Longer Active Tanvi Maxwell MECLIZINE HCL 25 MG TAB 1 PO Q6hrs prn dizziness MECLIZINE HCL 20931282563 Active Tanvi Maxwell MOMETASONE FUROATE 0.1 % CREA apply to affected areas daily MOMETASONE FUROATE 73208258654 Active Tanvi Darcy Maxwell NYSTATIN 226296 UNIT/GM CREA apply to affected areas BID for 7 days NYSTATIN 26898405335 No Longer Active Tanvi Darcy Maxwell ALTACE 5 MG CAPS 1 po BID RAMIPRIL 92100722722 Active Tanvi Darcy Maxwell NORVASC 5 MG TAB 1 PO daily AMLODIPINE BESYLATE 94675719121 No Longer Active Tanvi Darcy Maxwell LIPITOR 10 MG TAB 1 PO daily ATORVASTATIN CALCIUM 07795681701 Active Tanvi Darcy Maxwell PEN NEEDLES 09/11" 31G X 8 MM MISC as directed INSULIN PEN NEEDLE 77898660805 Active Tanvi Darcy Maxwell METFORMIN HCL 1000 MG TABS 1 PO BID METFORMIN HCL 74684292133 No Longer Active Tanviantionette Maxwell ULTRAM 50 MG TAB 1 po TID prn pain TRAMADOL HCL 04801020623 No Longer Active Tanviantionette Maxwell ZOSTAVAX 71426 UNT/0.65ML SOLR 1 injection once to prevent Shingles ZOSTER VACCINE LIVE 37597793425 No Longer Active Tanviantionette Maxwell GLYBURIDE 1.25 MG TABS 1 PO BID GLYBURIDE 52419404401 No Longer Active Tanviantionette Maxwell MOMETASONE FUROATE 0.1 % CREA Apply to affected area BID MOMETASONE FUROATE 96594294253 No Longer Active Tanviantionette Maxwell ASPIRIN 81 MG TAB 1 PO daily ASPIRIN 55516809860 Active Tanvi Darcy Maxwell OMEPRAZOLE 20 MG CPDR 1 PO daily OMEPRAZOLE 73397446423 No Longer Active Tanviantionette Maxwell COLCHICINE-PROBENECID 0.5-500 MG TABS 1 po BID COLCHICINE-PROBENECID 31780799600 No Longer Active Tanvi Darcy Maxwell LIPITOR 40 MG TAB 1 PO daily ATORVASTATIN CALCIUM 36466156009 No Longer Active Tanvi Darcy Maxwlel METFORMIN HCL 1000 MG TABS 1 po BID METFORMIN HCL 07641763872 No Longer Active Tanvi Darcy Maxwell JANUVIA 100 MG TABS 1 PO daily SITAGLIPTIN PHOSPHATE 62508144790 No Longer Active Tanvi Darcy Maxwell K-DUR 10 MEQ TAB CR 1 PO daily POTASSIUM CHLORIDE Active Tanvi Darcy Maxwell PLAVIX 75 MG TABS 1 PO QD CLOPIDOGREL BISULFATE 69566138580 No Longer Active Tanvi Darcy Maxwell ROBITUSSIN A-C 10-100 MG/5ML SYRUP 1 teaspoon PO Q 4-6 hr prn ROBITUSSIN A-C 10-100 MG/5ML SYRUP No Longer Active Tanvi Darcy Maxwell AMOXICILLIN 500 MG CAP 1 PO TID AMOXICILLIN 39356766471 No Longer Active Tanvi Darcy Maxwell ZETIA 10 MG TABS 1 po daily EZETIMIBE 35966092892 No Longer Active Tanvi Darcy Maxwell AGGRENOX 25-200 MG IG98O-FPE 1 PO BID ASPIRIN-DIPYRIDAMOLE 23737343152 No Longer Active Tanvi Darcy Maxwell GEMFIBROZIL 600 MG TABS 1 po BID GEMFIBROZIL 79281139988 No Longer Active Tanvi Darcy Maxwell LIPITOR 20 MG TAB 1 PO QD ATORVASTATIN CALCIUM 14049107288 No Longer Active Tanvi Darcy Maxwell LIPITOR 20 MG TAB 1 PO QD ATORVASTATIN CALCIUM 92779386570 No Longer Active Tanvi Darcy Maxwell DIABETA 1.25 MG TABS 1 PO QAM GLYBURIDE 66936419435 No Longer Active Tanvi Darcy Maxwell AVANDIA 4 MG TABS 1 po BID ROSIGLITAZONE MALEATE 61610775686 No Longer Active Tanvi Maxwell A THRU Z ADVANCED TABS 1 po daily MULTIPLE VITAMINS-MINERALS 12429512318 Active Tanvi Maxwell FISH OIL 1000 MG CAPS 1 po daily OMEGA-3 FATTY ACIDS 24368770257 Active Tanvi Maxwell CALCIUM 600/VITAMIN D 600-400 MG-UNIT TABS 1 po daily CALCIUM CARBONATE-VITAMIN D 71625177512 Active Tanvi Maxwell ASPIRIN 81 MG TAB 1 PO daily ASPIRIN 80910029668 No Longer Active Tanvi Maxwell COREG 6.25 MG TABS 1 po BID CARVEDILOL 50662054715 Active Tanvi Maxwell Immunizations Vaccine Administration Date [...] platelet count 186 10*3/mm3 Clinical Lists Update: CBC,CMP,FLP,HgA1c,Microalbumin - Chemistry Estimated Glomerular Filtration Rate (calc) >60 mL/min/1.73m2 glucose, plasma fasting 296 mg/dL albumin, serum 3.9 g/dL alkaline phosphatase, serum 106 U/L urea nitrogen, blood 17 mg/dL calcium, serum 9.4 mg/dL chloride, serum 101 mmol/L cholesterol, serum 160 mg/dL anion gap, serum 6 sodium, serum 132 mmol/L triglyceride, serum, fasting 110 mg/dL bilirubin, serum, total 0.8 mg/dL alanine aminotransferase (SGPT), serum 22 U/L aspartate aminotransferase (SGOT), serum 25 U/L protein, total, serum 7.2 g/dL potassium, serum 4.3 mmol/L LDL cholesterol, serum 101 mg/dL HDL cholesterol, serum 37 mg/dL creatinine, serum 0.74 mg/dL carbon dioxide, venous blood 25 mmol/L Clinical Lists Update: CBC,CMP,FLP,HgA1c,Microalbumin - Hematology hemoglobin, blood 15.6 g/dL platelet count 164 10*3/mm3 erythrocyte (RBC) count 4.92 10*6/mm3 leukocyte count, blood 5.3 10*3/mm3 mean corpuscular volume, RBC 90.7 fL red blood cell distribution width 12.7 % hematocrit, blood 44.6 % Clinical Lists Update: [...] mg/dL Clinical Lists Update: CMP,Chol,Trig,TSH - Chemistry potassium, serum 4.5 mmol/L thyroid stimulating hormone, serum 0.83 u[iU]/mL creatinine, serum 0.87 mg/dL carbon dioxide, venous blood 27 mmol/L cholesterol, serum 164 mg/dL chloride, serum 100 mmol/L calcium, serum 9.1 mg/dL urea nitrogen, blood 21 mg/dL alkaline phosphatase, serum 95 U/L albumin, serum 3.9 g/dL Estimated Glomerular Filtration Rate (calc) >60 mL/min/1.73m2 glucose, plasma fasting 225 mg/dL sodium, serum 134 mmol/L triglyceride, serum, fasting 152 mg/dL bilirubin, serum, total 0.9 mg/dL alanine aminotransferase (SGPT), serum 59 U/L aspartate aminotransferase (SGOT), serum 41 U/L protein, total, serum 7.5 g/dL Clinical Lists Update: CMP,FLP DR [facility] - Chemistry glucose, plasma fasting 218 mg/dL alkaline phosphatase, serum 70 U/L urea nitrogen, [...] serum 134 mmol/L anion gap, serum 6 albumin, serum 3.8 g/dL Clinical Lists Update: CMP,HGA1C,CHOL,TRIG - Chemistry albumin, serum 4.2 g/dL Estimated Glomerular Filtration Rate (calc) >60 mL/min/1.73m2 urea nitrogen, blood 16 mg/dL calcium, serum 9.5 mg/dL chloride, serum 98 mmol/L cholesterol, serum 147 mg/dL carbon dioxide, venous blood 25 mmol/L creatinine, serum 0.78 mg/dL hemoglobin A1C, blood, as % of total hemoglobin 9.0 % potassium, serum 4.2 mmol/L protein, total, serum 7.7 g/dL aspartate aminotransferase (SGOT), serum 34 U/L alanine aminotransferase (SGPT), serum 41 U/L bilirubin, serum, total 1.0 mg/dL triglyceride, serum, fasting 122 mg/dL sodium, serum 133 mmol/L glucose, plasma fasting 196 mg/dL alkaline phosphatase, serum 82 U/L Clinical Lists Update: DR [facility] - [...] % Encounters Code Encounter Date Provider Facility CPT-32960 Ofc Vst, Est Level IV 12:23:31 CDT Tanvi Maxwell, DO, FACP CPT-73112 Ofc Vst, Est Level IV 15:58:50 [employer] Tanvi Maxwell, DO, FACP CPT-81052 Ofc Vst, Est Level III 17:11:21 CDT Tanvi Maxwell, DO, FACP CPT-28121 Ofc Vst, Est Level IV 17:26:57 CDT Tanvi Maxwell, DO, FACP CPT-73932 Ofc Vst, Est Level IV 17:19:12 CDT Tanvi Maxwell, DO, FACP CPT-86498 Ofc Vst, Est Level IV 21:31:17 CDT Tanvi Maxwell, DO, FACP CPT-72396 Ofc Vst, Est Level III 20:13:43 CDT Tanvi Maxwell, DO, FACP CPT-77511 Ofc Vst, Est Level IV 20:47:14 [employer] Tanvi Jiang Maxwell, DO, FACP CPT-03362 Ofc Vst, Est Level IV 13:05:04 [employer] Tanvi Jiang Maxwell, DO, FACP CPT-18820 Ofc Vst, Est Level III 12:45:28 [employer] Tanvi Jiang Maxwell, DO, FACP CPT-23639 Ofc Vst, Est Level III 14:30:14 CDT Tanvi Jiang Maxwell, DO, FACP CPT-16443 Ofc Vst, Est Level IV 09:01:55 CDT Tanvi Jiang Maxwell, DO, FACP CPT-95556 Ofc Vst, Est Level III 07:24:19 [employer] Tanvi Jiang Maxwell, DO, FACP CPT-32999 Ofc Vst, Est Level IV 14:58:24 CDT Tanviantionette Jiang Maxwell, DO, FACP CPT-55080 Ofc Vst, Est Level IV 15:08:18 [employer] Tanvi Jiang Maxwell, DO, FACP CPT-57942 Ofc Vst, Est Level V 13:56:35 CDT Tanviantionette Jiang Maxwell, DO, FACP CPT-60892 Ofc Vst, Est Level IV 14:32:48 CDT Tanvi Jiang Maxwell, DO, FACP CPT-92484 Ofc Vst, Est Level IV 11:12:51 CDT Tanvi Jiang Maxwell, DO, FACP CPT-85371 Ofc Vst, Est Level IV 11:55:25 [employer] Tanvi Darcy Jiang Hans, DO, FACP CPT-09000 Ofc Vst, Est Level IV 11:33:32 CDT Tanvi Jiang Maxwell, DO, FACP CPT-83994 Ofc Vst, Est Level IV 12:06:37 CDT Tanviantionette Jiang Maxwell, DO, FACP CPT-40214 Ofc Vst, Est Level IV 11:49:47 CDT Tanvi Jiang Maxwell, DO, FACP CPT-98456 Ofc Vst, Est Level V 11:14:49 CDT Tanvi Maxwell, DO, FACP CPT-25635 Ofc Vst, New Level IV 13:51:48 CDT Tanvi Jiang Maxwell, DO, FACP Procedures Code Procedure Name Date Entry Date Standard Description CPT-G0439 Medicare Annual Wellness Visit 16:48:04 [employer] CPT-G8443 E-Prescribing Medication Sent 21:31:17 CDT CPT-G8443 E-Prescribing Medication Sent 20:13:43 CDT CPT-G8443 E-Prescribing Medication Sent 20:47:14 [employer] CPT-G8445 E-Prescribing Not sent due to no medication given 13:05: 04 [employer] CPT-G8446 E-Prescribing not done due to controlled substance 12:45 :28 [employer] CPT-G8445 E-Prescribing Not sent due to no medication given 21:27: 51 [employer] CPT-G0439 Medicare Annual Wellness Visit 21:27:51 [employer] CPT-G8446 E-Prescribing not done due to controlled substance 14:30 :14 CDT CPT-G8446 E-Prescribing not done due to controlled substance 09:01 :55 CDT CPT-G8445 E-Prescribing Not sent due to no medication given 07:24: 19 [employer] CPT-G8445 E-Prescribing Not sent due to no medication given 15:33: 27 CDT CPT-G0438 Medicare Annual Wellness Visit Initial 15:33:27 CDT CPT-78025 Injection, Pneumovax 11:33:32 CDT
--- OUTSIDE RECORDS SUMMARY | 2017-06-09 04:57 | XMS REPORT | Clinical Summary ---
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 INSULIN GLARGINE 68535933475 Active Tanvi Maxwell NORVASC 10 MG TAB 1 PO QD AMLODIPINE BESYLATE 04118968617 Active Tanvi Maxwell MECLIZINE HCL 25 MG TAB 1 PO Q6hrs prn dizziness MECLIZINE HCL 54651868997 No Longer Active Tanvi Maxwell MECLIZINE HCL 25 MG TAB 1 PO Q6hrs prn dizziness MECLIZINE HCL 41233790733 Active Tanvi Maxwell MOMETASONE FUROATE 0.1 % CREA apply to affected areas daily MOMETASONE FUROATE 10189295771 Active Tanvi Darcy Maxwell NYSTATIN 087693 UNIT/GM CREA apply to affected areas BID for 7 days NYSTATIN 53253951711 No Longer Active Tanvi Darcy Maxwell ALTACE 5 MG CAPS 1 po BID RAMIPRIL 78954994212 Active Tanvi Darcy Maxwell NORVASC 5 MG TAB 1 PO daily AMLODIPINE BESYLATE 11393883094 No Longer Active Tanvi Darcy Maxwell LIPITOR 10 MG TAB 1 PO daily ATORVASTATIN CALCIUM 48099048909 Active Tanvi Darcy Maxwell PEN NEEDLES 09/11" 31G X 8 MM MISC as directed INSULIN PEN NEEDLE 41274384495 Active Tanvi Darcy Maxwell METFORMIN HCL 1000 MG TABS 1 PO BID METFORMIN HCL 58225720716 No Longer Active Tanviantionette Maxwell ULTRAM 50 MG TAB 1 po TID prn pain TRAMADOL HCL 67249686093 No Longer Active Tanviantionette Maxwell ZOSTAVAX 12047 UNT/0.65ML SOLR 1 injection once to prevent Shingles ZOSTER VACCINE LIVE 39197028347 No Longer Active Tanviantionette Maxwell GLYBURIDE 1.25 MG TABS 1 PO BID GLYBURIDE 76869089565 No Longer Active Tanviantionette Maxwell MOMETASONE FUROATE 0.1 % CREA Apply to affected area BID MOMETASONE FUROATE 99784705593 No Longer Active Tanviantionette Maxwell ASPIRIN 81 MG TAB 1 PO daily ASPIRIN 42740369985 Active Tanvi Darcy Maxwell OMEPRAZOLE 20 MG CPDR 1 PO daily OMEPRAZOLE 72006785215 No Longer Active Tanviantionette Maxwell COLCHICINE-PROBENECID 0.5-500 MG TABS 1 po BID COLCHICINE-PROBENECID 50754273973 No Longer Active Tanvi Darcy Maxwell LIPITOR 40 MG TAB 1 PO daily ATORVASTATIN CALCIUM 23447491004 No Longer Active Tanvi Darcy Maxwell METFORMIN HCL 1000 MG TABS 1 po BID METFORMIN HCL 05637489251 No Longer Active Tanvi Darcy Maxwell JANUVIA 100 MG TABS 1 PO daily SITAGLIPTIN PHOSPHATE 07518963273 No Longer Active Tanvi Darcy Maxwell K-DUR 10 MEQ TAB CR 1 PO daily POTASSIUM CHLORIDE Active Tanvi Darcy Maxwell PLAVIX 75 MG TABS 1 PO QD CLOPIDOGREL BISULFATE 69456708444 No Longer Active Tanvi Darcy Maxwell ROBITUSSIN A-C 10-100 MG/5ML SYRUP 1 teaspoon PO Q 4-6 hr prn ROBITUSSIN A-C 10-100 MG/5ML SYRUP No Longer Active Tanvi Darcy Maxwell AMOXICILLIN 500 MG CAP 1 PO TID AMOXICILLIN 93425747459 No Longer Active Tanvi Darcy Maxwell ZETIA 10 MG TABS 1 po daily EZETIMIBE 67449945749 No Longer Active Tanvi Darcy Maxwell AGGRENOX 25-200 MG [id number] 1 PO BID ASPIRIN-DIPYRIDAMOLE 04086721605 No Longer Active Tanvi Darcy Maxwell GEMFIBROZIL 600 MG TABS 1 po BID GEMFIBROZIL 72394292427 No Longer Active Tanvi Darcy Maxwell LIPITOR 20 MG TAB 1 PO QD ATORVASTATIN CALCIUM 11227094460 No Longer Active Tanvi Darcy Maxwell LIPITOR 20 MG TAB 1 PO QD ATORVASTATIN CALCIUM 83794793721 No Longer Active Tanvi Darcy Maxwell DIABETA 1.25 MG TABS 1 PO QAM GLYBURIDE 75354275203 No Longer Active Tanvi Darcy Maxwell AVANDIA 4 MG TABS 1 po BID ROSIGLITAZONE MALEATE 68028039686 No Longer Active Tanvi Maxwell A THRU Z ADVANCED TABS 1 po daily MULTIPLE VITAMINS-MINERALS 65521334685 Active Tanvi Maxwell FISH OIL 1000 MG CAPS 1 po daily OMEGA-3 FATTY ACIDS 49303722753 Active Tanvi Maxwell CALCIUM 600/VITAMIN D 600-400 MG-UNIT TABS 1 po daily CALCIUM CARBONATE-VITAMIN D 43069305435 Active Tanvi Maxwell ASPIRIN 81 MG TAB 1 PO daily ASPIRIN 50627829290 No Longer Active Tanvi Maxwell COREG 6.25 MG TABS 1 po BID CARVEDILOL 32041033095 Active Tanvi Maxwell Immunizations Vaccine Administration Date [...] % Encounters Code Encounter Date Provider Facility CPT-70872 Ofc Vst, Est Level IV 12:23:31 CDT Tanvi Maxwell, DO, FACP CPT-46022 Ofc Vst, Est Level IV 15:58:50 [facility] Tanvi Maxwell, DO, FACP CPT-98885 Ofc Vst, Est Level III 17:11:21 CDT Tanvi Maxwell DO, FACP CPT-20504 Ofc Vst, Est Level IV 17:26:57 CDT Tanvi Maxwell, DO, FACP CPT-44234 Ofc Vst, Est Level IV 17:19:12 CDT Tanvi Maxwell, DO, FACP CPT-55261 Ofc Vst, Est Level IV 21:31:17 CDT Tanvi Maxwell, DO, FACP CPT-40279 Ofc Vst, Est Level III 20:13:43 CDT Tanvi Jiang Maxwell, DO, FACP CPT-91551 Ofc Vst, Est Level IV 20:47:14 [facility] Tanvi Jiang Maxwell, DO, FACP CPT-91692 Ofc Vst, Est Level IV 13:05:04 [facility] Tanvi Jiang Maxwell, DO, FACP CPT-34588 Ofc Vst, Est Level III 12:45:28 [facility] Tanvi Jiang Maxwell, DO, FACP CPT-91323 Ofc Vst, Est Level III 14:30:14 CDT Tanvi Darcy Jiang Maxwell, DO, FACP CPT-61239 Ofc Vst, Est Level IV 09:01:55 CDT Tanvi Jiang Hans, DO, FACP CPT-36645 Ofc Vst, Est Level III 07:24:19 [facility] Tanvi Jiang Maxwell, DO, FACP CPT-30234 Ofc Vst, Est Level IV 14:58:24 CDT Tanviantionette Jiang Maxwell, DO, FACP CPT-22953 Ofc Vst, Est Level IV 15:08:18 [facility] Tanvi iJang Maxwell, DO, FACP CPT-14545 Ofc Vst, Est Level V 13:56:35 CDT Tanviantionette Jiang Maxwell, DO, FACP CPT-23401 Ofc Vst, Est Level IV 14:32:48 CDT Tanvi Jiang Maxwell, DO, FACP CPT-84447 Ofc Vst, Est Level IV 11:12:51 CDT Tanvi Jiang Maxwell, DO, FACP CPT-15933 Ofc Vst, Est Level IV 11:55:25 [facility] [employer] Tanvi Darcy Jiang Maxwell, DO, FACP CPT-30826 Ofc Vst, Est Level IV 11:33:32 CDT Tanvi Jiang Hans DO, FACP CPT-00228 Ofc Vst, Est Level IV 12:06:37 CDT Tanvi Jiang Hans DO, FACP CPT-57711 Ofc Vst, Est Level IV 11:49:47 CDT Tanvi Jiang Hans DO, FACP CPT-54289 Ofc Vst, Est Level V 11:14:49 CDT Tanvi Jiang Hans DO, FACP CPT-38631 Ofc Vst, New Level IV 13:51:48 CDT Tanvi Jiang Hans DO, FACP Procedures Code Procedure Name Date Entry Date Standard Description CPT-G0439 Medicare Annual Wellness Visit 16:48:04 P[facility] SPECIAL[facility] CPT-G8443 E-Prescribing Medication Sent 21:31:17 CDT CPT-G8443 E-Prescribing Medication Sent 20:13:43 CDT CPT-G8443 E-Prescribing Medication Sent 20:47:14 PACS SPECIAL[facility] CPT-G8445 E-Prescribing Not sent due to no medication given 13:05: 04 [facility] SPECIALIST CPT-G8446 E-Prescribing not done due to controlled substance 12:45 :28 PACS SPECIALIST CPT-G8445 E-Prescribing Not sent due to no medication given 21:27: 51 PACS SPECIALIST CPT-G0439 Medicare Annual Wellness Visit 21:27:51 PACS SPECIALIST CPT-G8446 E-Prescribing not done due to controlled substance 14:30 :14 CDT CPT-G8446 E-Prescribing not done due to controlled substance 09:01 :55 CDT CPT-G8445 E-Prescribing Not sent due to no medication given 07:24: 19 PACS SPECIALIST CPT-G8445 E-Prescribing Not sent due to no medication given 15:33: 27 CDT CPT-G0438 Medicare Annual Wellness Visit Initial 15:33:27 CDT CPT-61888 Injection, Pneumovax 11:33:32 CDT
--- OUTSIDE RECORDS SUMMARY | 2017-06-09 04:58 | XMS REPORT | Clinical Summary ---
Author Author User, [employer] Tanvi Maxwell DO, FACP Address Unknown Phone [...] or lactic acid dehydrogenase [LDH] CORONARY ATHEROSCLEROSIS, [place] VESSEL 414.01 Active Tanvi Maxwell Coronary atherosclerosis of [place] coronary artery HEMATURIA, GROSS 599.7 Resolved Tanvi [...] units before meals INSULIN LISPRO ( HUMAN) 36143981395 Active Tanvi Maxwell LANTUS SOLOSTAR 100 UNIT/ML SOLN 35 units at night. INSULIN GLARGINE 43664415356 Active Tanvi Maxwell NORVASC 10 MG TAB 1 PO QD AMLODIPINE BESYLATE 34050582046 Active Tanvi Maxwell MECLIZINE HCL 25 MG TAB 1 PO Q6hrs prn dizziness MECLIZINE HCL 29686250270 No Longer Active Tanvi Maxwell MECLIZINE HCL 25 MG TAB 1 PO Q6hrs prn dizziness MECLIZINE HCL 69379263814 Active Tanvi Maxwell MOMETASONE FUROATE 0.1 % CREA apply to affected areas daily MOMETASONE FUROATE 21889580446 Active Tanvi Darcy Maxwell NYSTATIN 027412 UNIT/GM CREA apply to affected areas BID for 7 days NYSTATIN 76673154188 No Longer Active Tanvi Darcy Maxwell ALTACE 5 MG CAPS 1 po BID RAMIPRIL 55444717386 Active Tanvi Darcy Maxwell NORVASC 5 MG TAB 1 PO daily AMLODIPINE BESYLATE 28711817092 No Longer Active Tanvi Darcy Maxwell LIPITOR 10 MG TAB 1 PO daily ATORVASTATIN CALCIUM 36804097099 Active Tanvi Darcy Maxwell PEN NEEDLES 09/11" 31G X 8 MM MISC as directed INSULIN PEN NEEDLE 67568752614 Active Tanvi Darcy Maxwell METFORMIN HCL 1000 MG TABS 1 PO BID METFORMIN HCL 23765987640 No Longer Active Tanviantionette Maxwell ULTRAM 50 MG TAB 1 po TID prn pain TRAMADOL HCL 14803601630 No Longer Active Tanviantionette Maxwell ZOSTAVAX 87478 UNT/0.65ML SOLR 1 injection once to prevent Shingles ZOSTER VACCINE LIVE 76327381347 No Longer Active Tanviantionette Maxwell GLYBURIDE 1.25 MG TABS 1 PO BID GLYBURIDE 06291540889 No Longer Active Tanviantionette Maxwell MOMETASONE FUROATE 0.1 % CREA Apply to affected area BID MOMETASONE FUROATE 21827994889 No Longer Active Tanviantionette Maxwell ASPIRIN 81 MG TAB 1 PO daily ASPIRIN 71178854980 Active Tanvi Darcy Maxwell OMEPRAZOLE 20 MG CPDR 1 PO daily OMEPRAZOLE 48223293812 No Longer Active Tanviantionette Maxwell COLCHICINE-PROBENECID 0.5-500 MG TABS 1 po BID COLCHICINE-PROBENECID 21904463655 No Longer Active Tanvi Darcy Maxwell LIPITOR 40 MG TAB 1 PO daily ATORVASTATIN CALCIUM 06974030790 No Longer Active Tanvi Darcy Maxwell METFORMIN HCL 1000 MG TABS 1 po BID METFORMIN HCL 77156120285 No Longer Active Tanvi Darcy Maxwell JANUVIA 100 MG TABS 1 PO daily SITAGLIPTIN PHOSPHATE 05502672145 No Longer Active Tanvi Darcy Maxwell K-DUR 10 MEQ TAB CR 1 PO daily POTASSIUM CHLORIDE Active Tanvi Darcy Maxwell PLAVIX 75 MG TABS 1 PO QD CLOPIDOGREL BISULFATE 13111565879 No Longer Active Tanvi Darcy Maxwell ROBITUSSIN A-C 10-100 MG/5ML SYRUP 1 teaspoon PO Q 4-6 hr prn ROBITUSSIN A-C 10-100 MG/5ML SYRUP No Longer Active Tanvi Darcy Maxwell AMOXICILLIN 500 MG CAP 1 PO TID AMOXICILLIN 87166589428 No Longer Active Tanvi Darcy Maxwell ZETIA 10 MG TABS 1 po daily EZETIMIBE 27183219385 No Longer Active Tanvi Darcy Maxwell AGGRENOX 25-200 MG [id number] 1 PO BID ASPIRIN-DIPYRIDAMOLE 64523450972 No Longer Active Tanvi Darcy Maxwell GEMFIBROZIL 600 MG TABS 1 po BID GEMFIBROZIL 09382140560 No Longer Active Tanvi Darcy Maxwell LIPITOR 20 MG TAB 1 PO QD ATORVASTATIN CALCIUM 08881314816 No Longer Active Tanvi Darcy Maxwell LIPITOR 20 MG TAB 1 PO QD ATORVASTATIN CALCIUM 57396524448 No Longer Active Tanvi Darcy Maxwell DIABETA 1.25 MG TABS 1 PO QAM GLYBURIDE 45326872638 No Longer Active Tanvi Darcy Maxwell AVANDIA 4 MG TABS 1 po BID ROSIGLITAZONE MALEATE 13700255657 No Longer Active Tanvi Maxwell A THRU Z ADVANCED TABS 1 po daily MULTIPLE VITAMINS-MINERALS 87913057911 Active Tanvi Maxwell FISH OIL 1000 MG CAPS 1 po daily OMEGA-3 FATTY ACIDS 62501199268 Active Tanvi Maxwell CALCIUM 600/VITAMIN D 600-400 MG-UNIT TABS 1 po daily CALCIUM CARBONATE-VITAMIN D 01729725043 Active Tanvi Maxwell ASPIRIN 81 MG TAB 1 PO daily ASPIRIN 81839375129 No Longer Active Tanvi Maxwell COREG 6.25 MG TABS 1 po BID CARVEDILOL 29890952674 Active Tanvi Maxwell Immunizations Vaccine Administration Date [...] % Encounters Code Encounter Date Provider Facility CPT-71824 Ofc Vst, Est Level IV 12:23:31 CDT Tanvi Maxwell DO, FACP CPT-71139 Ofc Vst, Est Level IV 15:58:50 [employer] Tanvi Maxwell DO, FACP CPT-03403 Ofc Vst, Est Level III 17:11:21 CDT Tanvi Maxwell, DO, FACP CPT-97648 Ofc Vst, Est Level IV 17:26:57 CDT Tanvi Maxwell, DO, FACP CPT-96474 Ofc Vst, Est Level IV 17:19:12 CDT Tanvi Maxwell, DO, FACP CPT-67407 Ofc Vst, Est Level IV 21:31:17 CDT Tanvi Maxwell DO, FACP CPT-72926 Ofc Vst, Est Level III 20:13:43 CDT Tanvi Jiang Maxwell, DO, FACP CPT-69299 Ofc Vst, Est Level IV 20:47:14 [employer] Tanvi Jiang Maxwell, DO, FACP CPT-20512 Ofc Vst, Est Level IV 13:05:04 [employer] Tanvi Jiang Maxwell, DO, FACP CPT-37402 Ofc Vst, Est Level III 12:45:28 [employer] Tanvi Jiang Maxwell, DO, FACP CPT-30994 Ofc Vst, Est Level III 14:30:14 CDT Tanvi Jiang Maxwell, DO, FACP CPT-22083 Ofc Vst, Est Level IV 09:01:55 CDT Tanviantionette Jiang Maxwell, DO, FACP CPT-18486 Ofc Vst, Est Level III 07:24:19 [employer] Tanvi Jiang Maxwell, DO, FACP CPT-62689 Ofc Vst, Est Level IV 14:58:24 CDT Tanvi Jiang Maxwell, DO, FACP CPT-07406 Ofc Vst, Est Level IV 15:08:18 [employer] Tanvi Jiang Maxwell, DO, FACP CPT-74044 Ofc Vst, Est Level V 13:56:35 CDT Tanvi Jiang Maxwell, DO, FACP CPT-83390 Ofc Vst, Est Level IV 14:32:48 CDT Tanvi Jiang Maxwell, DO, FACP CPT-74002 Ofc Vst, Est Level IV 11:12:51 CDT Tanviantionette Jiang Hans, DO, FACP CPT-82289 Ofc Vst, Est Level IV 11:55:25 [employer] Tanvi Jaing Maxwell, DO, FACP CPT-04892 Ofc Vst, Est Level IV 11:33:32 CDT Tanvi Jiang Maxwell, DO, FACP CPT-66450 Ofc Vst, Est Level IV 12:06:37 CDT Tanviantionette Jiang Maxwell, DO, FACP CPT-38993 Ofc Vst, Est Level IV 11:49:47 CDT Tanviantionette Jiang Maxwell, DO, FACP CPT-57643 Ofc Vst, Est Level V 11:14:49 CDT Tanvi Maxwell, DO, FACP CPT-75755 Ofc Vst, New Level IV 13:51:48 CDT Tanvi Jiang Maxwell, DO, FACP Procedures Code Procedure Name Date Entry Date Standard Description CPT-G0439 Medicare Annual Wellness Visit 16:48:04 [employer] CPT-G8443 E-Prescribing Medication Sent 21:31:17 CDT CPT-G8443 E-Prescribing Medication Sent 20:13:43 CDT CPT-G8443 E-Prescribing Medication Sent 20:47:14 [employer] CPT-G8445 E-Prescribing Not sent due to no medication given 13:05: 04 [employer] CPT-G8446 E-Prescribing not done due to controlled substance 12:45 :28 [employer] CPT-G8445 E-Prescribing Not sent due to no medication given 21:27: 51 [employer] CPT-G0439 Medicare Annual Wellness Visit 21:27:51 [employer] CPT-G8446 E-Prescribing not done due to controlled substance 14:30 :14 CDT CPT-G8446 E-Prescribing not done due to controlled substance 09:01 :55 CDT CPT-G8445 E-Prescribing Not sent due to no medication given 07:24: 19 [employer] CPT-G8445 E-Prescribing Not sent due to no medication given 15:33: 27 CDT CPT-G0438 Medicare Annual Wellness Visit Initial 15:33:27 CDT CPT-72144 Injection, Pneumovax 11:33:32 CDT
--- OUTSIDE RECORDS SUMMARY | 2017-06-09 05:00 | XMS REPORT | Continuity of Care Document ---
Author Author [facility] Organization [facility] Address Unknown Phone Unavailable Allergies Active Description Code Type Severity Reaction Onset Reported/Identified Relationship to Patient Clinical Status Yes No Known Drug Allergies [id number] Drug Allergy Unknown N/A 06/06/2017 Medications There is no data. 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, TYPE II OR UNSPEC TY 07/03/2010 Ot 686.9 LOCAL SKIN INFECTION NOS 07/03/2010 Ot 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 07/03/2010 Ot V58.66 LONG-TERM ( CURRENT) USE OF ASPIRIN 07/03/2010 Ot V58.69 OTH MED,LT, CURRENT USE 07/03/2010 Ot V67.09 SURGERY FOLLOW-UP, OTHER SURGERY 01/22/2013 BI CONDE Ot 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 01/22/2013 BI CONDE Ot 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 01/22/2013 BI CONDE Ot V58.69 OTH MED,LT,CURRENT USE 01/22/2013 BI CONDE Ot V67.09 SURGERY FOLLOW-UP, OTHER SURGERY 04/04/2013 FRIAS DO, FAVIOLA Ot 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, TYPE II OR UNSPEC TY 04/04/2013 RODRIGUEZ SHORE FAVIOLA Ot 272.0 PURE HYPERCHOLESTEROLEM 04/04/2013 MACK FRIAS DOI Ot 272.4 HYPERLIPIDEMIA NEC/NOS 04/04/2013 RODRIGUEZ SHORE FAVIOLA Ot 274.9 GOUT NOS 04/04/2013 RODRIGUEZ SHORE FAVIOLA Ot 278.00 OBESITY, NOS 04/04/2013 RODRIGUEZ SHORE FAVIOLA Ot 401.9 HYPERTENSION NOS 04/04/2013 RODRIGUEZ SHORE FAVIOLA Ot 412 OLD MYOCARDIAL INFARCT 04/04/2013 RODRIGUEZ SHORE FAVIOLA Ot 414.01 CORONARY ATHEROSCLEROSIS OF [place] CORON 04/04/2013 RODRIGUEZ SHORE FAVIOLA Ot 443.9 PERIPH VASCULAR DIS NOS 04/04/2013 RODRIGUEZ SHORE FAVIOLA Ot 530.81 ESOPHAGEAL REFLUX 04/04/2013 RODRIGUEZ SHORE FAVIOLA Ot 780.02 TRANSIENT ALTERATION OF AWARENESS 04/04/2013 MACK FRIAS DOI Ot 780.2 SYNCOPE AND COLLAPSE 04/04/2013 MACK FRIAS DOI Ot 780.79 OTH MALAISE FATIGUE 04/04/2013 RODRIGUEZ SHORE FAVIOLA Ot 781.94 FACIAL WEAKNESS 04/04/2013 RODRIGUEZ SHORE FAVIOLA Ot 790.6 ABN BLOOD CHEMISTRY NEC 04/04/2013 MACK FRIAS DOI Ot V12.54 PERSONAL HX OF TIA, CEREBRAL INFARCTION 04/04/2013 MACK FRIAS DOI Ot V15.82 HISTORY OF TOBACCO USE 04/04/2013 MACK FRIAS DOI Ot V58.63 LONG-TERM(CURRENT)USE OF ANTIPLATELET/AN 04/04/2013 MACK FRIAS DOI Ot V58.66 LONG-TERM (CURRENT) USE OF ASPIRIN 04/04/2013 MACK FRIAS DOI Ot V58.69 OTH MED,LT,CURRENT USE 04/04/2013 RODRIGUEZ SHORE FAVIOLA Ot V85.34 BODY MASS INDEX 34.0-34.9, ADULT 09/30/2013 RODRIGUEZ SHORE FAVIOLA Ot 250.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, TYPE I [JUVENILE TYP 04/07/2014 BI CONDE Ot 702.0 04/07/2014 BI CONDE Ot V10.82 04/07/2014 BI CONDE Ot V58.69 04/07/2014 AMAYA, BOBAN N Ot V67.09 04/14/2014 AMAYA, BOBAN N Ot 702.0 04/14/2014 AMAYA, BOBAN N Ot V10.82 04/14/2014 AMAYA, BOBAN N Ot V58.69 04/14/2014 AMAYA, BOBAN N Ot V67.09 04/14/2014 FAVIOLA FRIAS DO Ot 790.5 04/14/2014 Ot 250.01 04/14/2014 AMAYA, BOBAN N Ot 702.0 04/14/2014 AMAYA, BOBAN N Ot V10.82 04/14/2014 AMAYA, BOBAN N Ot V58.69 04/14/2014 AMAYA, BOBAN N Ot V67.09 04/15/2014 AMAYA, BOBAN N Ot 702.0 04/15/2014 AMAYA, BOBAN N Ot V10.82 04/15/2014 AMAYA, BOBAN N Ot V58.69 04/15/2014 AMAYA, BOBAN N Ot V67.09 04/21/2014 AMAYA, BOBAN N Ot 172.2 04/21/2014 AMAYA, BOBAN N Ot 780.4 05/06/2014 AMAYA, BOBAN N Ot 172.2 05/06/2014 AMAYA, BOBAN N Ot 780.4 05/24/2014 AMAYA, BOBAN N Ot 172.2 05/24/2014 AMAYA, BOBAN N Ot 780.4 05/27/2014 AMAYA, BOBAN N Ot 702.0 05/27/2014 AMAYA, BOBAN N Ot V10.82 05/27/2014 AMAYA, BOBAN N Ot V58.69 05/27/2014 AMAYA, BOBAN N Ot V67.09 05/28/2014 AMAYA, BOBAN N Ot 702.0 05/28/2014 AMAYA, BOBAN N Ot V10.82 05/28/2014 AMAYA, BOBAN N Ot V58.69 05/28/2014 AMAYA, BOBAN N Ot V67.09 07/13/2014 AMAYA, BOBAN N Ot 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 07/13/2014 AMAYA, BOBAN N Ot 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 07/13/2014 AMAYA, BOBAN N Ot V58.69 OT MED,LT,CURRENT USE 07/13/2014 AMAYA, BOBAN N Ot V67.09 SURGERY FOLLOW-UP, OTHER SURGERY 11/03/2014 SOLIS DE LEON IRRIGATION EQUIPMENT INSTALLER Ot 702.0 11/03/2014 DE LEONSOLIS Jiang IRRIGATION EQUIPMENT INSTALLER Ot V10.82 11/03/2014 DE LEONSOLIS Jiang IRRIGATION EQUIPMENT INSTALLER Ot V58.69 11/03/2014 DE LEONSOLIS S IRRIGATION EQUIPMENT INSTALLER Ot V67.09 11/04/2014 DE LEONSOLIS IRRIGATION EQUIPMENT INSTALLER Ot 702.0 11/04/2014 DE LEONSOLIS S IRRIGATION EQUIPMENT INSTALLER Ot V10.82 11/04/2014 DE LEONSOLIS S IRRIGATION EQUIPMENT INSTALLER Ot V58.69 11/04/2014 DE LEONSOLIS S IRRIGATION EQUIPMENT INSTALLER Ot V67.09 02/15/2015 AMAYA, BOBAN N Ot 702.0 02/15/2015 AMAYA, BOBAN N Ot V10.82 02/15/2015 AMAYA, BOBAN N Ot V58.69 02/15/2015 AMAYA, BOBAN N Ot V67.09 03/18/2015 AMAYA, BOBAN N Ot 702.0 03/18/2015 AMAYA, BOBAN N Ot V10.82 03/18/2015 AMAYA, BOBAN N Ot V58.69 03/18/2015 AMAYA, BOBAN N Ot V67.09 04/06/2015 AMAYA, BOBAN N Ot L57.0 04/06/2015 AMAYA, BOBAN N Ot Z08 04/06/2015 AMAYA, BOBAN N Ot Z79.899 04/06/2015 AMAYA, BOBAN N Ot Z85.820 04/14/2015 AMAYA, BOBAN N Ot L57.0 04/14/2015 AMAYA, BOBAN N Ot Z08 04/14/2015 AMAYA, BOBAN N Ot Z79.899 04/14/2015 AMAYA, BOBAN N Ot Z85.820 05/17/2015 AMAYA, BOBAN N Ot 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 05/17/2015 AMAYA, BOBAN N Ot Z08 ENCNTR FOR FOLLOW-UP EXAM AFTER TRTMT FO 05/17/2015 AMAYA, BOBAN N Ot 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 05/17/2015 BI CONDE Ot Z85.820 PERSONAL HISTORY OF MALIGNANT MELANOMA O 08/29/2015 Ot 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, TYPE II OR UNSPEC TY 08/29/2015 Ot 686.9 LOCAL SKIN INFECTION NOS 08/29/2015 Ot 784.0 HEADACHE 08/29/2015 Ot 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 08/29/2015 Ot V58.66 LONG-TERM ( CURRENT) USE OF ASPIRIN 08/29/2015 Ot V58.69 OTH MED,LT, CURRENT USE 08/29/2015 Ot V67.09 SURGERY FOLLOW-UP, OTHER SURGERY 08/29/2015 Ot 172.9 MALIG MELANOMA SKIN NOS 08/29/2015 Ot 784.0 HEADACHE 08/29/2015 Ot 443.9 PERIPH VASCULAR DIS NOS 08/29/2015 Ot 287.31 IMMUNE THROMBOCYTOPENIC PURPURA 08/29/2015 Ot 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 08/29/2015 Ot V58.69 OTH MED,LT, CURRENT USE 08/29/2015 Ot V67.09 SURGERY FOLLOW-UP, OTHER SURGERY 08/29/2015 Ot 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 08/29/2015 Ot V58.69 OTH MED,LT, CURRENT USE 08/29/2015 Ot V67.09 SURGERY FOLLOW-UP, OTHER SURGERY 08/29/2015 BI CONDE Ot 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 08/29/2015 BI CONDE Ot 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 08/29/2015 BI CONDE Ot V58.69 OTH MED,LT,CURRENT USE 08/29/2015 BI CONDE Ot V67.09 SURGERY FOLLOW-UP, OTHER SURGERY 08/29/2015 BI CONDE Ot 172.9 MALIG MELANOMA SKIN NOS 08/29/2015 BI CONDE Ot 794.8 ABN LIVER FUNCTION STUDY 08/29/2015 SOLIS DE LEON IRRIGATION EQUIPMENT INSTALLER Ot 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 08/29/2015 SOLIS DE LEONP Ot 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 08/29/2015 SOLIS DE LEON Ot V58.69 OTH MED,LT,CURRENT USE 08/29/2015 AUDI DE LEONAH S IRRIGATION EQUIPMENT INSTALLER Ot V67.09 SURGERY FOLLOW-UP, OTHER SURGERY 09/14/2015 DE LEONSOLIS Jiang IRRIGATION EQUIPMENT INSTALLER Ot Z08 ENCNTR FOR FOLLOW-UP EXAM AFTER TRTMT FO 09/14/2015 SOLIS DE LEON IRRIGATION EQUIPMENT INSTALLER Ot 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 09/14/2015 SOLIS DE LEON IRRIGATION EQUIPMENT INSTALLER Ot Z85.820 PERSONAL HISTORY OF MALIGNANT MELANOMA O 09/21/2015 DE LEONSOLIS Jiang IRRIGATION EQUIPMENT INSTALLER Ot Z08 ENCNTR FOR FOLLOW-UP EXAM AFTER TRTMT FO 09/21/2015 SOLIS DE LEON IRRIGATION EQUIPMENT INSTALLER Ot 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 09/21/2015 DE LEONSOLIS IRRIGATION EQUIPMENT INSTALLER Ot Z85.820 PERSONAL HISTORY OF MALIGNANT MELANOMA O 05/16/2016 Ot 443.9 PERIPH VASCULAR DIS NOS 05/16/2016 Ot 287.31 IMMUNE THROMBOCYTOPENIC PURPURA 05/16/2016 Ot 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 05/16/2016 Ot V58.69 OTH MED,LT, CURRENT USE 05/16/2016 Ot V67.09 SURGERY FOLLOW-UP, OTHER SURGERY 05/16/2016 Ot 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 05/16/2016 Ot V58.69 OTH MED,LT, CURRENT USE 05/16/2016 Ot V67.09 SURGERY FOLLOW-UP, OTHER SURGERY 05/16/2016 AMAYA, BI Talbot Ot 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 05/16/2016 AMAYA, BI Talbot Ot 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 05/16/2016 BI CONDE Dahiana Ot V58.69 OTH MED,LT,CURRENT USE 05/16/2016 BI CONDE Dahiana Ot V67.09 SURGERY FOLLOW-UP, OTHER SURGERY 05/16/2016 AMAYA BI Talbot Ot 172.9 MALIG MELANOMA SKIN NOS 05/16/2016 AMAYA BI Talbot Ot 794.8 ABN LIVER FUNCTION STUDY 05/16/2016 SOLIS DE LEON IRRIGATION EQUIPMENT INSTALLER Ot 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 05/16/2016 SOLIS DE LEON IRRIGATION EQUIPMENT INSTALLER Ot 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 05/16/2016 SOLIS DE LEON IRRIGATION EQUIPMENT INSTALLER Ot V58.69 OTH MED,LT,CURRENT USE 05/16/2016 SOLIS DE LEON IRRIGATION EQUIPMENT INSTALLER Ot V67.09 SURGERY FOLLOW-UP, OTHER SURGERY 05/28/2016 Ot 443.9 PERIPH VASCULAR DIS NOS 05/28/2016 Ot 287.31 IMMUNE THROMBOCYTOPENIC PURPURA 05/28/2016 Ot 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 05/28/2016 Ot V58.69 OTH MED,LT, CURRENT USE 05/28/2016 Ot V67.09 SURGERY FOLLOW-UP, OTHER SURGERY 05/28/2016 Ot 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 05/28/2016 Ot V58.69 OTH MED,LT, CURRENT USE 05/28/2016 Ot V67.09 SURGERY FOLLOW-UP, OTHER SURGERY 05/28/2016 AMAYA BI Talbot Ot 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 05/28/2016 AMAYA BI Talbot Ot 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 05/28/2016 AMAYABI Ot V58.69 OTH MED,LT,CURRENT USE 05/28/2016 AMAYA BI Talbot Ot V67.09 SURGERY FOLLOW-UP, OTHER SURGERY 05/28/2016 AMAYA BI Talbot Ot 172.9 MALIG MELANOMA SKIN NOS 05/28/2016 AMAYA BI Talbot Ot 794.8 ABN LIVER FUNCTION STUDY 05/28/2016 SOLIS DE LEON IRRIGATION EQUIPMENT INSTALLER Ot 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 05/28/2016 SOLIS DE LEON IRRIGATION EQUIPMENT INSTALLER Ot 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 05/28/2016 SOLIS DE LEON IRRIGATION EQUIPMENT INSTALLER Ot V58.69 OTH MED,LT,CURRENT USE 05/28/2016 SOLIS DE LEON IRRIGATION EQUIPMENT INSTALLER Ot V67.09 SURGERY FOLLOW-UP, OTHER SURGERY 08/16/2016 AMAYABI Ot 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 08/16/2016 BI CONDE Ot Z08 ENCNTR FOR FOLLOW-UP EXAM AFTER TRTMT FO 08/16/2016 BI CONDE Ot Z79.899 OTHER LONG-TERM (CURRENT) DRUG THERAPY 08/16/2016 BI CONDE Ot Z85.820 PERSONAL HISTORY OF MALIGNANT MELANOMA O 08/17/2016 FRIAS DO, FAVIOLA Ot 790.5 ABN SERUM ENZY LEVEL NEC 08/17/2016 Ot 250.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, TYPE I [JUVENILE TYP 08/17/2016 BI CONDE Ot 172.2 MALIG MELANOMA EAR 08/17/2016 BI CONDE Ot 780.4 DIZZINESS AND GIDDINESS 08/17/2016 SOLIS DE LEON IRRIGATION EQUIPMENT INSTALLER Ot 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 08/17/2016 SOLIS DE LEON IRRIGATION EQUIPMENT INSTALLER Ot 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 08/17/2016 SOLIS DE LEON IRRIGATION EQUIPMENT INSTALLER Ot V58.69 OTH MED,LT,CURRENT USE 08/17/2016 SOLIS DE LEON IRRIGATION EQUIPMENT INSTALLER Ot V67.09 SURGERY FOLLOW-UP, OTHER SURGERY 08/17/2016 BI CONDE Ot 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 08/17/2016 BI CONDE Ot Z08 ENCNTR FOR FOLLOW-UP EXAM AFTER TRTMT FO 08/17/2016 BI CONDE Ot Z79.899 OTHER LONG-TERM (CURRENT) DRUG THERAPY 08/17/2016 BI CONDE Ot Z85.820 PERSONAL HISTORY OF MALIGNANT MELANOMA O 08/17/2016 SOLIS DE LEON IRRIGATION EQUIPMENT INSTALLER Ot Z08 ENCNTR FOR FOLLOW-UP EXAM AFTER TRTMT FO 08/17/2016 SOLIS DE LEON IRRIGATION EQUIPMENT INSTALLER Ot Z79.899 OTHER LONG-TERM (CURRENT) DRUG THERAPY 08/17/2016 SOLIS DE LEON IRRIGATION EQUIPMENT INSTALLER Ot Z85.820 PERSONAL HISTORY OF MALIGNANT MELANOMA O 09/03/2016 BI CONDE Ot 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 09/03/2016 BI CONDE Ot Z08 ENCNTR FOR FOLLOW-UP EXAM AFTER TRTMT FO 09/03/2016 BI CONDE Ot 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 09/03/2016 BI CONDE Ot Z85.820 PERSONAL HISTORY OF MALIGNANT MELANOMA O 09/21/2016 BI CONDE Ot 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 09/21/2016 BI CONDE Ot Z08 ENCNTR FOR FOLLOW-UP EXAM AFTER TRTMT FO 09/21/2016 BI CONDE Ot Z79.899 OTHER LONG-TERM (CURRENT) DRUG THERAPY 09/21/2016 BI CONDE Ot Z85.820 PERSONAL HISTORY OF MALIGNANT MELANOMA O 09/26/2016 BI CONDE Ot 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 09/26/2016 BI CONDE Ot Z08 ENCNTR FOR FOLLOW-UP EXAM AFTER TRTMT FO 09/26/2016 BI CONDE Ot 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 09/26/2016 BI CONDE Ot Z85.820 PERSONAL HISTORY OF MALIGNANT MELANOMA O 11/18/2016 BI CONDE Ot 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 11/18/2016 BI CONDE Ot Z08 ENCNTR FOR FOLLOW-UP EXAM AFTER TRTMT FO 11/18/2016 BI CONDE Ot Z79.899 OTHER LONG-TERM (CURRENT) DRUG THERAPY 11/18/2016 BI CONDE Ot Z85.820 PERSONAL HISTORY OF MALIGNANT MELANOMA O 2017 RODRIGUEZ SHORE FAVIOLA Ot J44.9 CHRONIC OBSTRUCTIVE PULMONARY DISEASE, U 2017 RODRIGUEZ DO, FAVIOLA Ot R06.02 SHORTNESS OF BREATH 06/04/2017 RODRIGUEZ SHORE FAVIOLA Ot 790.5 ABN SERUM ENZY LEVEL NEC 06/04/2017 Ot 250.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, TYPE I [JUVENILE TYP 06/04/2017 BI CONDE Ot 172.2 MALIG MELANOMA EAR 06/04/2017 BI CONDE Ot 780.4 DIZZINESS AND GIDDINESS 06/04/2017 SOLIS DE LEON IRRIGATION EQUIPMENT INSTALLER Ot 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 06/04/2017 SOLIS DE LEON IRRIGATION EQUIPMENT INSTALLER Ot 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 06/04/2017 SOLIS DE LEONP Ot V58.69 OTH MED,LT,CURRENT USE 06/04/2017 SOLIS DE LEON IRRIGATION EQUIPMENT INSTALLER Ot V67.09 SURGERY FOLLOW-UP, OTHER SURGERY 06/04/2017 SOLIS DE LEON IRRIGATION EQUIPMENT INSTALLER Ot Z08 ENCNTR FOR FOLLOW-UP EXAM AFTER TRTMT FO 06/04/2017 SOLIS DE LEON IRRIGATION EQUIPMENT INSTALLER Ot 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 06/04/2017 SOLIS DE LEON Ot Z85.820 PERSONAL HISTORY OF MALIGNANT MELANOMA O 06/04/2017 BI CONDE Dahiana Ot 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 06/04/2017 BI CONDE Dahiana Ot Z08 ENCNTR FOR FOLLOW-UP EXAM AFTER TRTMT FO 06/04/2017 BI CONDE Dahiana Ot 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 06/04/2017 BI CONDE Dahiana Ot Z85.820 PERSONAL HISTORY OF MALIGNANT MELANOMA O 06/04/2017 FAVIOLA FRIAS DO Ot J44.9 CHRONIC OBSTRUCTIVE PULMONARY DISEASE, U 06/04/2017 FAVIOLA FRIAS DO Ot R06.02 SHORTNESS OF BREATH 06/06/2017 Ot 250.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, TYPE I [JUVENILE TYP 06/06/2017 BI CONDE Dahiana Ot 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 06/06/2017 IB CONDE Dahiana Ot Z08 ENCNTR FOR FOLLOW-UP EXAM AFTER TRTMT FO 06/06/2017 BI CONDE Dahiana Ot Z79.899 OTHER LONG-TERM (CURRENT) DRUG THERAPY 06/06/2017 BI CONDE Ot Z85.820 PERSONAL HISTORY OF MALIGNANT MELANOMA O 06/06/2017 FAVIOLA FRIAS DO Ot R06.2 WHEEZING Procedures Code Description Performed By Performed On 45.16 ESOPHAGOGASTRODUODENOSCOPY [ EGD] W/CLOSE 10/06/2009 45.23 COLONOSCOPY 10/06/2009 Results Test Result Range Complete blood count (CBC) with automated white blood cell (WBC) differential - 06/06/17 07:03 Blood leukocytes automated count (number/volume) 7.1 10*3/uL 4.3-11.0 Blood erythrocytes automated count (number/volume) 4.52 10*6/uL 4.35-5.85 Venous blood hemoglobin measurement (mass/volume) 13.9 g/dL 13.3-17.7 Blood hematocrit (volume fraction) 40 % 40-54 Automated erythrocyte mean corpuscular volume 88 [foz_us] 80-99 Automated erythrocyte mean corpuscular hemoglobin (mass per erythrocyte) 31 pg 25-34 Automated erythrocyte mean corpuscular hemoglobin concentration measurement ( mass/volume) 35 g/dL 32-36 Automated erythrocyte distribution width ratio 13.7 % 10.0-14.5 Automated blood platelet count (count/volume) 198 10*3/uL 130-400 Automated blood platelet mean volume measurement 9.8 [foz_us] 7.4-10.4 Automated blood neutrophils/100 leukocytes 61 % 42-75 Automated blood lymphocytes/100 leukocytes 27 % 12-44 Blood monocytes/100 leukocytes 10 % 0-12 Automated blood eosinophils/100 leukocytes 2 % 0-10 Automated blood basophils/100 leukocytes 0 % 0-10 Blood neutrophils automated count (number/volume) 4.3 10*3 1.8-7.8 Blood lymphocytes automated count (number/volume) 1.9 10*3 1.0-4.0 Blood monocytes automated count (number/volume) 0.7 10*3 0.0-1.0 Automated eosinophil count 0.1 10*3/uL 0.0-0.3 Automated blood basophil count (count/volume) 0.0 10*3/uL 0.0-0.1 Comprehensive metabolic panel - 06/06/17 07:03 Serum or plasma sodium measurement (moles/volume) 136 mmol/L 135-145 Serum or plasma potassium measurement (moles/volume) 4.3 mmol/L 3.6-5.0 Serum or plasma chloride measurement (moles/volume) 103 mmol/L 98-107 Carbon dioxide 21 mmol/L 21-32 Serum or plasma anion gap determination (moles/volume) 12 mmol/L 5-14 Serum or plasma urea nitrogen measurement (mass/volume) 19 mg/dL 7-18 Serum or plasma creatinine measurement (mass/volume) 0.84 mg/dL 0.60-1.30 Serum or plasma urea nitrogen/creatinine mass ratio 23 NRG Serum or plasma creatinine measurement with calculation of estimated glomerular filtration rate > NRG Serum or plasma glucose measurement (mass/volume) 178 mg/dL 70-105 Serum or plasma calcium measurement (mass/volume) 9.5 mg/dL 8.5-10.1 Serum or plasma total bilirubin measurement (mass/volume) 1.2 mg/dL 0.1-1.0 Serum or plasma alkaline phosphatase measurement (enzymatic activity/volume) 117 U/L 40-136 Serum or plasma aspartate aminotransferase measurement (enzymatic activity/ volume) 17 U/L 5-34 Serum or plasma alanine aminotransferase measurement (enzymatic activity/volume ) 13 U/L 0-55 Serum or plasma protein measurement (mass/volume) 7.6 g/dL 6.4-8.2 Serum or plasma albumin measurement (mass/volume) 4.0 g/dL 3.2-4.5 Serum or plasma lithium measurement (moles/volume) - 06/06/17 07:03 BNP level 854.1 pg/mL <100.0 Capillary blood glucose measurement by glucometer (mass/volume) - 06/06/17 20: 39 Capillary blood glucose measurement by glucometer (mass/volume) 83 mg/dL 70-110 Whole blood basic metabolic panel - 06/07/17 05:25 Serum or plasma sodium measurement (moles/volume) 138 mmol/L 135-145 Serum or plasma potassium measurement (moles/volume) 3.7 mmol/L 3.6-5.0 Serum or plasma chloride measurement (moles/volume) 103 mmol/L 98-107 Carbon dioxide 21 mmol/L 21-32 Serum or plasma anion gap determination (moles/volume) 14 mmol/L 5-14 Serum or plasma urea nitrogen measurement (mass/volume) 16 mg/dL 7-18 Serum or plasma creatinine measurement (mass/volume) 0.77 mg/dL 0.60-1.30 Serum or plasma urea nitrogen/creatinine mass ratio 21 NRG Serum or plasma creatinine measurement with calculation of estimated glomerular filtration rate > NRG Serum or plasma glucose measurement (mass/volume) 138 mg/dL 70-105 Serum or plasma calcium measurement (mass/volume) 9.1 mg/dL 8.5-10.1 Capillary blood glucose measurement by glucometer (mass/volume) - 06/07/17 10: 41 Capillary blood glucose measurement by glucometer (mass/volume) 117 mg/dL 70-110 Capillary blood glucose measurement by glucometer (mass/volume) - 06/07/17 15: 59 Capillary blood glucose measurement by glucometer (mass/volume) 88 mg/dL 70-110 Capillary blood glucose measurement by glucometer (mass/volume) - 06/07/17 17: 59 Capillary blood glucose measurement by glucometer (mass/volume) 144 mg/dL 70-110 Capillary blood glucose measurement by glucometer (mass/volume) - 06/07/17 20: 32 Capillary blood glucose measurement by glucometer (mass/volume) 95 mg/dL 70-110 Capillary blood glucose measurement by glucometer (mass/volume) - 06/08/17 05: 34 Capillary blood glucose measurement by glucometer (mass/volume) 113 mg/dL 70-110 Complete blood count (CBC) with automated white blood cell (WBC) differential - 06/08/17 05:53 Blood leukocytes automated count (number/volume) 7.1 10*3/uL 4.3-11.0 Blood erythrocytes automated count (number/volume) 4.76 10*6/uL 4.35-5.85 Venous blood hemoglobin measurement (mass/volume) 14.4 g/dL 13.3-17.7 Blood hematocrit (volume fraction) 42 % 40-54 Automated erythrocyte mean corpuscular volume 87 [foz_us] 80-99 Automated erythrocyte mean corpuscular hemoglobin (mass per erythrocyte) 30 pg 25-34 Automated erythrocyte mean corpuscular hemoglobin concentration measurement ( mass/volume) 35 g/dL 32-36 Automated erythrocyte distribution width ratio 13.9 % 10.0-14.5 Automated blood platelet count (count/volume) 201 10*3/uL 130-400 Automated blood platelet mean volume measurement 9.7 [foz_us] 7.4-10.4 Automated blood neutrophils/100 leukocytes 52 % 42-75 Automated blood lymphocytes/100 leukocytes 31 % 12-44 Blood monocytes/100 leukocytes 13 % 0-12 Automated blood eosinophils/100 leukocytes 4 % 0-10 Automated blood basophils/100 leukocytes 0 % 0-10 Blood neutrophils automated count (number/volume) 3.7 10*3 1.8-7.8 Blood lymphocytes automated count (number/volume) 2.2 10*3 1.0-4.0 Blood monocytes automated count (number/volume) 0.9 10*3 0.0-1.0 Automated eosinophil count 0.3 10*3/uL 0.0-0.3 Automated blood basophil count (count/volume) 0.0 10*3/uL 0.0-0.1 Whole blood basic metabolic panel - 06/08/17 05:53 Serum or plasma sodium measurement (moles/volume) 136 mmol/L 135-145 Serum or plasma potassium measurement (moles/volume) 3.7 mmol/L 3.6-5.0 Serum or plasma chloride measurement (moles/volume) 101 mmol/L 98-107 Carbon dioxide 22 mmol/L 21-32 Serum or plasma anion gap determination (moles/volume) 13 mmol/L 5-14 Serum or plasma urea nitrogen measurement (mass/volume) 22 mg/dL 7-18 Serum or plasma creatinine measurement (mass/volume) 0.74 mg/dL 0.60-1.30 Serum or plasma urea nitrogen/creatinine mass ratio 30 NRG Serum or plasma creatinine measurement with calculation of estimated glomerular filtration rate > NRG Serum or plasma glucose measurement (mass/volume) 114 mg/dL 70-105 Serum or plasma calcium measurement (mass/volume) 9.5 mg/dL 8.5-10.1 Capillary blood glucose measurement by glucometer (mass/volume) - 06/08/17 09: 37 Capillary blood glucose measurement by glucometer (mass/volume) 99 mg/dL 70-110 Capillary blood glucose measurement by glucometer (mass/volume) - 06/08/17 15: 57 Capillary blood glucose measurement by glucometer (mass/volume) 86 mg/dL 70-110 Capillary blood glucose measurement by glucometer (mass/volume) - 06/08/17 20: 36 Capillary blood glucose measurement by glucometer (mass/volume) 81 mg/dL 70-110 Encounters ACCT No. Visit Date/Time Discharge Status Pt. Type Provider Facility Loc./Unit Complaint [id number] 06/05/2017 07:15:00 06/05/2017 23:59:59 CLS Outpatient FAVIOLA FRIAS DO [facility] RT WHEEZING [id number] 01/02/2017 10:00:00 01/02/2017 23:59:59 CLS Outpatient FAVIOLA FRIAS DO [facility] RT J44.9,R06.02 [id number] 11/19/2016 00:14:00 11/19/2016 23:59:59 CLS Preadmit BI CONDE [facility] ONC [id number] 08/20/2016 08:24:00 11/18/2016 00:01:00 DIS Outpatient BI CONDE [facility] ONC [id number] 08/22/2015 08:56:00 08/22/2015 23:59:59 CLS Outpatient SOLIS DE LEON [facility] ONC [id number] 02/16/2015 08:37:00 02/16/2015 23:59:59 CLS Outpatient BI CONDE N [facility] ONC [id number] 10/13/2014 09:13:00 10/13/2014 23:59:59 CLS Outpatient SOLIS DE LEON [employer]MENT INST[employer]ER [facility] ONC [id number] 04/15/2014 14:58:00 04/15/2014 23:59:59 CLS Outpatient BI CONDE N [facility] RAD DIZZINESS,MALIGNANT MELANOMA [id number] 04/14/2014 10:34:00 04/14/2014 23:59:59 CLS Outpatient BI CONDE N [facility] ONC [id number] 07/20/2013 18:00:00 09/30/2013 00:01:00 DIS Outpatient FRIAS DO, FAVIOLA [facility] DSME DIABETES [id number] 04/13/2013 07:46:00 04/13/2013 23:59:59 CLS Outpatient FRIAS DO, FAVIOLA [facility] RAD ELEVATED LIVER ENZYMES [id number] 04/09/2013 08:52:00 04/09/2013 23:59:59 CLS Outpatient SOLIS DE LEONP [facility] ONC [id number] 04/03/2013 12:37:00 04/04/2013 14:20:00 DIS Inpatient FRIAS DO, FAVIOLA [facility] CSD AMS R SIDED FACIAL DROOP [id number] 10/24/2012 08:15:00 01/22/2013 00:01:00 DIS Outpatient BI CONDE N [facility] ONC [id number] 10/28/2012 07:10:00 10/28/2012 23:59:59 CLS Outpatient BI CONDE N [facility] RAD MELANOMA,ELEVATED LFT [id number] 10/09/2012 01:35:00 10/09/2012 23:59:59 CLS Outpatient IB CONDE N [facility] ONC [id number] 06/06/2017 08:30:00 ACT Inpatient FRIAS DO, FAVIOLA Via [address] [address] [id number] 10/01/2013 15:00:00 Document Registration [id number] 04/03/2012 12:22:00 Document Registration [id number] 10/04/2011 09:54:00 Document Registration [id number] 04/04/2011 09:23:00 Document Registration [id number] 02/06/2011 10:28:00 Document Registration [id number] 10/10/2010 07:53:00 Document Registration [id number] 10/04/2010 09:48:00 Document Registration [id number] 04/04/2010 08:44:00 Document Registration [id number] 10/05/2009 11:35:00 Document Registration
[2017-06-09] MEDS: inSUlin ASPART (NovoLOG) 1 UNIT/0.01 ML (CHARGE PER UNIT) SC SCH ×4 (06:33→11:50)
[2017-06-09] MEDS: FUROSEMIDE 40 MG/4 ML INJ (LASIX) IV SCH (06:45)
[2017-06-09 08:28] VITALS: BP 119/67
[2017-06-09] MEDS: SPIRONOLACTONE 25 MG (ALDACTONE) TAB PO SCH (08:49)
[2017-06-09] MEDS: CARVEDILOL 3.125 MG (COREG) TABLET PO SCH (08:50)
[2017-06-09] MEDS: inSUlin DETERMIR 1 UNIT/0.01 ML (LEVEMIR) CHARGE PER UNIT SQ SCH (08:50)
[2017-06-09] MEDS: ASPIRIN E.C. 81 MG (ECOTRIN) TAB PO SCH (08:50)
[2017-06-09] MEDS: RAMIPRIL 5 MG (ALTACE) CAP PO SCH (08:50)
[2017-06-09] MEDS: CILOSTAZOL 100 MG PO SCH (08:51)
[2017-06-09 09:00] LABS: BUN/CREATININE RATIO 26; CALCIUM 9.5 MG/DL (8.5-10.1); CARBON DIOXIDE 22 MMOL/L (21-32); CHLORIDE 99 MMOL/L (98-107); CREATININE SERUM 1.08 MG/DL (0.60-1.30); GFR ESTIMATED > 60; GLUCOSE 192 MG/DL (70-105); POTASSIUM 3.6 MMOL/L (3.6-5.0); SODIUM 135 MMOL/L (135-145)
[2017-06-09] MEDS ORDERED: SPIR25TA3 PO (09:11)
[2017-06-09] MEDS ORDERED: FURO40TA4 PO (09:11)
[2017-06-09] MEDS ORDERED: CARV3.122 PO (09:11)
--- NOTE | 2017-06-09 11:14 | Discharge Summary-Hospitalist ---
Diagnosis/Chief Complaint Date of Admission Jun 06, 2017 at 8:30 am Date of Discharge Discharge Date: Jun 09, 2017 Admission Diagnosis CHF exacerbation Discharge Diagnosis Acute on chronic systolic heart failure (1) CHF exacerbation Status: Acute Assessment & Plan: Echo here reveals EF 25% Will resume oral lasix for DC home I/Os (inconsistent as he forgets to use urinal)- still net negative CHF education, fluid restrict Cardiology consulted, appreciate recs Titrate oxygen to keep sats >90 Has RAGHU, BB, Lasix Did not qualify for home oxygen (2) Essential (primary) hypertension Assessment & Plan: Low/normotensive Continue lower dose of coreg Stopped amlodipine (3) CAD (coronary artery disease) Assessment & Plan: No chest pain or signs of ACS Cardiology consulted, appreciate recs (4) Insulin dependent diabetes mellitus Assessment & Plan: Resume home insulin SSI Carb controlled diet (5) Aortic stenosis Assessment & Plan: Noted on echo Unsure if new Records requested from Dr. Seals (6) Prophylactic measure Assessment & Plan: Lovenox ADA diet/ Low Na Saline Lock Discharge Summary Consultations Dr Palafox. Discharge Physical Examination Allergies: Coded Allergies: No Known Drug Allergies (Unverified , 06/06/17) Vitals & I&Os Vital Signs Date Time Temp Pulse Resp B/P (MAP) Pulse Ox O2 Delivery O2 Flow Rate FiO2 06/09/17 08:13 Nasal Cannula 2.50 06/09/17 08:00 91 06/09/17 04:00 97.7 81 16 112/56 (74) Hospital Course Pt is an 82yoCM with a PMH of CHF and IDDMII who presented to the ER due to SOB. He was admitte dfo acute CHF exacerbation. Echo was done and revealed Ef of 25% and mod/severe aortic stenosis. He was started on IV Lasix and responded well. His breathing was much improved and he was no longer need oxygen supplementation at discharge. His BP was low/normotensive so his amlodipine was stopped and his Coreg was decreased at discharge. He is to follow up with Dr. Frias and Dr. Palafox. Labs (last 24 hrs) Laboratory Tests 06/08/17 15:57: Glucometer 86 06/08/17 20:36: Glucometer 81 06/09/17 06:12: Glucometer 112H 06/09/17 08:35: Sodium Level 135, Potassium Level 3.6, Chloride Level 99, Carbon Dioxide Level 22, Anion Gap 14, Blood Urea Nitrogen 28H, Creatinine 1.08, Estimat Glomerular Filtration Rate > 60, BUN/Creatinine Ratio 26, Glucose Level 192H, Calcium Level 9.5 06/09/17 10:56: Glucometer 131H Pending Labs Laboratory Tests 06/09/17 06:12: Glucometer 112 06/09/17 08:35: Sodium Level 135, Potassium Level 3.6, Chloride Level 99, Carbon Dioxide Level 22, Anion Gap 14, Blood Urea Nitrogen 28, Creatinine 1.08, Estimat Glomerular Filtration Rate > 60, BUN/Creatinine Ratio 26, Glucose Level 192, Calcium Level 9.5 06/09/17 10:56: Glucometer 131 Discharge Home Medications: Active Scripts Active Spironolactone 25 Mg Tablet 25 Mg PO DAILY Carvedilol 3.125 Mg Tablet 3.125 Mg PO BID Furosemide 40 Mg Tablet 40 Mg PO BID Reported Nitroglycerin 0.4 Mg Tab.subl 0.4 Mg SL UD PRN Proair Hfa (Albuterol Sulfate) 1 Puff Puff 2 Puff INH Q4H PRN Lantus Solostar (Insulin Glargine,Hum.rec.anlog) 100 Unit/1 Ml Insuln.pen 35 Units SC DAILY Humalog Kwikpen (Insulin Lispro) 100 Unit/1 Ml Insuln.pen 20 Units SC TIDAC Ramipril 5 Mg Capsule 5 Mg PO BID Aspirin EC (Aspirin) 81 Mg Tablet.dr 81 Mg PO DAILY Daily Multiple Vitamin (Multivitamin) 1 Each Tablet 1 Tab PO DAILY Atorvastatin Calcium 20 Mg Tablet 20 Mg PO HS Cilostazol 100 Mg Tablet 100 Mg PO BID Carvedilol 6.25 Mg Tablet 6.25 Mg PO BID Fish Oil 1,000 mg Capsule ([place] 3 Polyunsat Fatty Acids) 1,000 Mg Cap 1,000 Mg PO DAILY Calcium 600 + Vit D 200 Tablet (Calcium Carbonate/Vitamin D3) 1 Each Tablet 1 Tab PO DAILY Amlodipine Besylate 10 Mg Tablet 10 Mg PO DAILY Donepezil HCl 10 Mg Tablet 10 Mg PO HS Instructions to patient/family Please see electronic discharge instructions given to patient. Clinical Quality Measures AMI/AHF: Ejection Fraction: <40 (RAGHU/ARB Indicated) D/C Medications Addressed: Raghu inhibitors, Beta dayana, Diuretic DVT/VTE Risk/Contraindication: Risk Factor Score Per Nursin RFS Level Per Nursing on Admit: 4+=Very High Copy Copies To 1: FAVIOLA FRIAS DO; Boris PALAFOX MD Problem Qualifiers (1) CHF exacerbation: Congestive heart failure type: systolic Qualified Codes: I50.23 - Acute on chronic systolic (congestive) heart failure (2) CAD (coronary artery disease): Coronary Disease-Associated Artery/Lesion type: [place] artery [place] vs. transplanted heart: [place] heart Associated angina: without angina Qualified Codes: I25.10 - Atherosclerotic heart disease of [place] coronary artery without angina pectoris (3) Aortic stenosis: Cardiac valve disease etiology: etiology unspecified Qualified Codes: I35.0 - Nonrheumatic aortic (valve) stenosis LENNIE GREEN MD Jun 09, 2017 11:14 am
--- NOTE | 2017-06-09 11:47 | Cardiology Progress Note ---
Cardiology SOAP Progress Note Subjective: Significant improvement in shortness of breath. Objective: I&O/Vital Signs Vital Sign - Last 12Hours 06/09/17 06/09/17 06/09/17 06/09/17 00:00 04:00 08:00 08:13 Temp 96.9 97.7 Pulse 71 81 Resp 20 16 B/P (MAP) 118/70 (86) 112/56 (74) Pulse Ox 92 91 91 O2 Delivery Room Air Room Air Room Air Nasal Cannula O2 Flow Rate 94.00 2.50 06/09/17 06/09/17 08:28 09:00 Temp 97.2 Pulse 80 Resp 24 B/P (MAP) 119/67 (84) Pulse Ox 80 O2 Delivery Room Air Room Air Intake and Output 06/09/17 00:00 Intake Total 1280 ml Output Total 250 ml Balance 1030 ml Weight (Pounds): 214 Weight (Ounces): 4.0 Weight (Calculated Kilograms): 97.723296 Constitutional: appears stated age, AAO x 3 Respiratory: chest is bilaterally symmetric, lungs clear to percussion, lungs clear to auscultation Cardiovascular: regular rate-rhythm, S1 and S2, systolic murmur Gastrointestional: No tender, No soft, No round, No distended, No pulsatile mass, No organomegaly, No guarding, No rebound, No tenderness, No hernia, No mass, No audible bowel sounds, No abnormal bowel sounds, No abdominal bruits, No spleenomegaly, No other Extremities: No normal range of motion, No non-tender, No normal inspection, No pedal edema, No calf tenderness, No normal capillary refill, No pelvis stable , No calf tenderness, No inflammation, No pedal edema, No slow capillary refill , No swelling, No other, No abrasion, No clubbing, No cyanosis, No ecchymosis, No laceration, No no lower extremity edema bilateral, No significant edema, No tenderness, No wound Neurologic/Psychiatric: alert, normal mood/affect, oriented x 3 Skin: No normal color, No warm/dry, No cyanosis, No cool, No diaphoresis, No damp, No ecchymosis, No jaundice, No mottled, No pallor, No rash, No tattoos/ piercings, No ulcerations, No rash on exposed areas, No ulcerations on exposed areas, No other Results/Procedures: Labs Laboratory Tests 06/08/17 15:57: Glucometer 86 06/08/17 20:36: Glucometer 81 06/09/17 06:12: Glucometer 112H 06/09/17 08:35: Sodium Level 135, Potassium Level 3.6, Chloride Level 99, Carbon Dioxide Level 22, Anion Gap 14, Blood Urea Nitrogen 28H, Creatinine 1.08, Estimat Glomerular Filtration Rate > 60, BUN/Creatinine Ratio 26, Glucose Level 192H, Calcium Level 9.5 06/09/17 10:56: Glucometer 131H A/P: Assessment/Dx: Acute systolic congestive heart failure, Rule out pneumonia, Possible CAD, Hypertension, Diabetes, Moderate to severe aortic stenosis Plan: Acute systolic congestive heart failure, significant improvement with IV Lasix. Patient should be discharged on Lasix. I have requested all records from Dr. Seals's office which include echocardiogram and any other testing performed. Echocardiogram done this hospitalization which shows severe LV systolic dysfunction with an EF of 30 percent. Elevated BNP. High-dose Lasix. Discussed at length with the patient and family all aspects of care and future plan of action. 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 If no coronary angiography has been performed then the patient will need evaluation of coronary anatomy to rule out ischemic etiology of cardiomyopathy. Will likely require coronary angiography pre-cardiac surgery for aortic stenosis as well. Primary prevention of sudden cardiac with lifevest. Rule out pneumonia, deferred to Dr. Holland. Possible history of CAD, no chest pain. Benign EKG. Hypertension, continue outpatient medications. Diabetes, insulin. Moderate to severe aortic stenosis. Echocardiogram done during this admission demonstrates at least moderate to severe aortic stenosis and moderate aortic insufficiency. Mean gradient 29 mmHg however he aortic valve area is 0.9 cm. By aortic valve area and to severe aortic stenosis however by mean gradient it is moderate aortic stenosis. It is likely that the patient has moderate to severe aortic stenosis. The patient may be a candidate to be evaluated for percutaneous aortic valve surgery. Agree with patient discharge. Will follow on Saturday with likely coronary angiography on . Discuss with Dr. Holland and the family. Thank you for your consultation. Please call me if you have any questions. Alex Palafox MD, FACP, FACC, FSCAI, FHRS, CCDS Interventional Cardiology Cardiac Electrophysiology Vascular Medicine and Endovascular Interventions Boris PALAFOX MD Jun 09, 2017 11:47 am
[2017-06-09 12:00] VITALS: BP 118/68
[2017-06-09 13:56] VITALS: BP 118/68
== END 2017-06-09 13:35 | disposition home or self-care (01) | DRG 293 ==
LOC: EDUNIT# 06:45 → ER 06:46 → 4TH 08:30
PROVIDERS: ADMIT Family Medicine; ATTEND Internal Medicine
DX: I11.0 Hypertensive heart disease with heart failure (principal); I50.23 Acute on chronic systolic (congestive) heart failure; I25.10 Atherosclerotic heart disease of native coronary artery without angina pectoris; I25.2 Old myocardial infarction; E11.9 Type 2 diabetes mellitus without complications; R01.1 Cardiac murmur, unspecified; I35.2 Nonrheumatic aortic (valve) stenosis with insufficiency; M10.9 Gout, unspecified; H91.90 Unspecified hearing loss, unspecified ear; Z79.4 Long term (current) use of insulin; Z85.820 Personal history of malignant melanoma of skin; Z96.659 Presence of unspecified artificial knee joint; Z87.891 Personal history of nicotine dependence
CPT/HCPCS: 36415; 71045; 80048; 80053; 82962; 83880; 85025; 93005; 93306; 94761

== ENCOUNTER 2017-06-13 07:27 | Day surgery (SDC) | payer MEDICARE, BC ==
[~2017-06-13] VITALS: Ht 175.3 cm; Wt 104.3 kg
[2017-06-13] VITALS (13 sets, daily range): BP systolic 93–126; BP diastolic 45–96
[~2017-06-13 07:27] MED LIST changes: +AMLO10TA2 PO; +ASPI-983 PO; +ASPI-999 PO; +ATOR20TA66 PO; +CALC-6 PO; +CARV3.122 PO; +CILO100T PO; +DONE10TA41 PO; +FURO40TA4 PO; +INSU100I10 SC; +INSU100I23 SC; +MULT-35 PO; +NITR0.4T42 SL; +RAMI5CAP PO; +RT-ALBUINH INH; +SPIR25TA3 PO
[2017-06-13] MEDS ORDERED: NS IV 1000 ML 1,000 ML ONE (07:33)
[2017-06-13] MEDS ORDERED: HEParin (CATH LAB) 2,000 ML IV ONE (07:33)
[2017-06-13] MEDS ORDERED: LIDOCAINE 1% INJ 50 ML (XYLOCAINE) VIAL ONE (07:33)
[2017-06-13] MEDS ORDERED: NS IV 1000 ML 1,000 ML IV SCH ×2 (07:45→13:00)
[2017-06-13 07:58] LABS: MEAN PLATELET VOLUME 9.6 FL (7.4-10.4); RED BLOOD COUNT 4.95 10^6/uL (4.35-5.85); RED CELL DISTRIBUTION WIDTH 13.6 % (10.0-14.5); WHITE BLOOD COUNT 7.8 10^3/uL (4.3-11.0)
[2017-06-13 08:15] LABS: INR 1.1 (0.8-1.4); PROTHROMBIN TIME PATIENT 13.9 SEC (12.2-14.7)
[2017-06-13] MEDS ORDERED: INFLUENZA TRIvalent 2017-2018 0.5 ML/45 MCG SYR IM ONE (08:15)
[2017-06-13 08:22] LABS: ALBUMIN 4.3 GM/DL (3.2-4.5); BILIRUBIN,TOTAL 1.2 MG/DL (0.1-1.0); CALCIUM 10.2 MG/DL (8.5-10.1); CREATININE SERUM 1.3 MG/DL (0.60-1.30); POTASSIUM 5.2 MMOL/L (3.6-5.0); TOTAL PROTEIN 8.2 GM/DL (6.4-8.2)
[2017-06-13] MEDS ORDERED: CILO100T PO (09:17)
[2017-06-13] MEDS ORDERED: AMLO10TA2 PO (09:17)
[2017-06-13] MEDS ORDERED: MIDAZOLAM 5 MG/5 ML (VERSED) VIAL ONE (10:34)
[2017-06-13] MEDS ORDERED: fentaNYL INJECTION 100 MCG/2 ML AMP ONE (10:34)
[2017-06-13] MEDS ORDERED: ADENOSINE 3 MG/1 ML (ADENOSCAN) 30ML VIAL IV ONE (11:36)
[2017-06-13] MEDS ORDERED: HEParin 1000 UNIT/ML (10ML VIAL) FOR BOLUS ONE (11:39)
--- NOTE | 2017-06-13 12:54 | Cardiac Procedure Note-CS/ASA ---
Pre-Procedure Note Pre-Op Procedure Note H&P Reviewed The H&P was reviewed, patient examined and no changes noted. Date H&P Reviewed: Jun 13, 2017 Time H&P Reviewed: 09:30 Conscious Sedation Pre-Proced Time Reviewed: :30 ASA Class: 3 Airway Mallampati Classification: ([place] appropriate class) I. II. III, IV Lungs Heart ASA score ASA 1: a normal healthy patient ASA 2: a patient with a mild systemic disease (mid diabetes, controlled hypertension, obesity ASA 3: a patient with a severe systemic disease that limits activity (angina , COPD, prior Myocardial infarction) ASA 4: a patient with an incapacitating disease that is a constant threat to life (CHF, renal failure) ASA 5: a moribund patient not expected to survive 24 hrs. (ruptured aneurysm) ASA 6: a declared brain patient whose organs are being harvested. For emergent operations, add the letter E after the classification Grade 1 Sedation Plan: Analgesia, Amnesia, Plan communicated to team members, Discussed options with patient/fam, Discussed risks with patient/fam Note The patient is an appropriate candidate to undergo the planned procedure, sedation, and anesthesia. The patient immediately re-assessed prior to indication. Boris BROOKS MD Jun 13, 2017 12:54 pm
[2017-06-13] MEDS ORDERED: PATIENT MAY USE OWN MEDS, ALL PO SCH (13:00)
--- NOTE | 2017-06-13 13:01 | Coronary Angiography Report ---
Coronary Angiography Report DATE OF PROCEDURE: 06/13/17 INDICATION: Shortness of breath, history of CAD, moderate to severe aortic stenosis pre-cardiac surgery. PREOPERATIVE DIAGNOSIS: Shortness of breath, history of CAD, moderate to severe aortic stenosis pre-cardiac surgery. POSTOPERATIVE DIAGNOSIS: 1. Significant multivessel CAD. 2. Severe aortic stenosis. 3. Systolic LV dysfunction with elevated LVEDP. HISTORY: This is a 82-year-old gentleman who presented recently with acute systolic congestive heart failure. He improved significantly with IV diuresis. Echocardiogram showed moderate to severe aortic stenosis with mean gradient of 29 mmHg and aortic valve area of 0.9 cm. Moderate aortic insufficiency was also present. Ejection fraction was 30 percent. The patient requires evaluation of coronary anatomy and further evaluation off severity of aortic stenosis. Therefore, the patient was scheduled for coronary angiography, left heart catheterization and right heart catheterization.. PROCEDURES PERFORMED: 1.Coronary angiography. 2.Left heart catheterization. 3. Right heart catheterization. 4. Aortic root injection. 5. Aortic arch angiography. 6. FFR of the left main, LAD and OM1. COMPLICATIONS: None. SPECIMENS: None. ESTIMATED BLOOD LOSS: 10 mL ANESTHESIA: Conscious sedation ANTICOAGULATION: IV heparin CONTRAST: 125 mL of Omnipaque. FLUOROSCOPY: 18.8 minutes. FLOUROSCOPY DOSE: 872 mgy. PROCEDURE DETAILS: The patient is a 82 male and was brought to the laboratory chemical assistant after informed consent was taken. All the risks and complications were explained in detail; this included the risk of bleeding, vascular damage, stroke , MS and even . The patient was draped and prepped in the usual sterile fashion. Access was gained in the right femoral artery with a 5 [place] sheath and the right femoral vein with a 7 [place] sheath. Right coronary artery was engaged with a JR4 catheter. Left coronary system was engaged with a JL4 catheter. Aortic valve was crossed with the AL 2 catheter. Pigtail catheter was used for aortic arch angiography. A [place] catheter was used for right heart catheterization. FINDINGS: 1.Left main: Moderate calcified distal stenosis. Stenosis severity is 50 percent. 2.LAD: Moderate to severe diffuse proximal and mid stenosis. Stenosis severity is 70 percent. LAD is a transapical vessel which supplies collateral to the RPDA. 3.Left circumflex artery: Moderate stenosis is noted in the mid segment of the ramus intermedius branch. Moderate to severe stenosis is noted in the ostium of OM1. Mild to moderate disease is noted in the distal segment of the AV groove artery. 4.RCA: Chronic total occlusion in the midsegment with left to right collaterals. 5.Left heart catheterization: LV pressure 128/6 mmHg. LVEDP 21 mmHg. Aortic pressure 91/49 mmHg. Severe LV systolic dysfunction with an EF of 30 percent with global hypokinesis. Gradient across the aortic valve was almost 40 mmHg. 6. Aortic root injection: Shows patent ostium of the left main and mild aortic regurgitation. 7. Aortic arch angiogram: No evidence of aneurysm or dissection. 8. Right heart catheterization: PA pressure 38/13 mmHg. PCWP 16 mmHg. RV pressure 36/2 mmHg. RA pressure 4 mmHg. Heart rate 71 BPM. ALEJANDRO CO 3.31 L/m. ALEJANDRO CI 1.51 l/min2/m2. Aortic valve area 0.6 cm. Mean gradient 34.41 mmHg. Recommendations: 1. FFR of the left main, LAD and OM1 is recommended. FFR details: IV heparin 5000 units was given. ACT was performed. We first crossed the left main and LAD with a pressure wire and the tip of the pressure wire was placed in the distal LAD. Baseline FFR was 0.86. Adenosine was started at 140 g per KG per minute. Lowest FFR was 0.76 which is abnormal. The pressure wire was taken out of the LAD and placed in the midsegment of OM1 artery. Baseline FFR 0.93. Adenosine was started at 140 g per KG per minute. Lowest FFR was 0.88 which is acceptable. The wire was taken out and post-angiogram showed no vascular complications. CONCLUSIONS: 1. Severe proximal/mid LAD disease. Moderate left main and OM1 disease. Moderate mid ramus disease. Chronic total occlusion of the mid RCA supplied by collaterals from the left coronary system. 2. Severe aortic stenosis. 3. Severe LV dysfunction with elevated filling pressures. 4. Mildly elevated PA pressure and PCWP. 5. I will consult Dr. Simmons at [facility] valve team. Alex Brooks MD, FACP, FACC, [facility] Interventional Cardiology Boris BROOKS MD Jun 13, 2017 1:01 pm
--- NOTE | 2017-06-13 13:03 | Discharge Inst-Post CATH ---
Discharge Inst-CATH Post Cardiac Cath D/C Inst Follow Up/Plan follow up with Dr Palafox in 3 weeks CARDIAC CATH DISCHARGE INSTRUCTIONS *Hold Metformin for 48 hours post heart cath. ACTIVITY * Go Home directly and rest. * Limit activity of the leg (or wrist if it was used) for 7 days including aerobics, swimming, jogging, bicycling, etc. * Restrict stair-climbing for 7 days if possible, if not, climb up with your non -cath leg, then bring together on the same step. * Avoid lifting, pushing, pulling or excessive movement of the affected extremity for 7 days. * Customary sexual activity may be resumed after 2 days-use caution not to use a position that strains or causes pain to the affected extremity. * No driving for 24 hours. * NO SMOKING. * Avoid straining for bowel movements for 7 days. * Gentle walking on level ground is allowed. * Returning to work will depend on the type of procedure and the results. Your doctor will discuss this with you. CALL YOUR DOCTOR FOR ANY OF THE FOLLOWING: *If bleeding from the puncture site occurs- Apply gentle pressure to site with clean cloth and call your doctor or EMS. * If a knot or lump forms under the skin, increases in size, or causes pain. * If bruising appears to be worsening or moving further down your leg instead of disappearing. * Temperature above 101 F. CARE OF YOUR GROIN INCISION; * Bruising or purple discoloration of the skin near the puncture site is common. * You may shower only, no bathtub bathing for 5 days. Be careful to avoid slipping as your leg may feel stiff. * If a closure device was used on your femoral artery, please see the attached guide regarding care of the device and your leg. * REMOVE the dressing from your groin the next day after your procedure in the shower. CARE OF YOUR WRIST INCISION; * Bruising or purple discoloration of the skin near the puncture site is common. * You may shower. * DO NOT submerge wrist. * Remove dressing in 24 hours. Boris PALAFOX MD Jun 13, 2017 1:03 pm
--- NOTE | 2017-06-13 22:41 | Cardiology Discharge Summary ---
Diagnosis/Chief Complaint Date of Admission 06/13/2017 Date of Discharge 06/13/2017 Admission Diagnosis Severe aortic stenosis, shortness of breath, severe LV systolic dysfunction, CAD Final/Discharge Diagnosis Severe aortic stenosis, multivessel CAD, elevated PA pressure and PCWP. Chief Complaint/HPI Chief Complaint/HPI This is a 82-year-old gentleman who presented recently with acute systolic congestive heart failure. He was also found to have on echocardiogram moderate to severe aortic stenosis and severe LV systolic dysfunction with an EF of 30 percent. Coronary angiography, left heart catheterization and right heart catheterization is recommended to evaluate coronary anatomy, further assess the severity of aortic stenosis. Discharge Summary Procedures Coronary angiography which showed severe multi-vessel CAD. Left heart catheterization shows severe aortic stenosis with aortic valve area of 0.6 cm. Right heart catheterization shows elevated PA pressures and PCWP. Discharge Physical Examination Stable cardiorespiratory examination. Hospital Course Stable. Discussion & Recommendations Discussion I discussed at length with the patient, spouse and daughter. Evaluation by the [facility] valve team was recommended. I will make arrangements. Follow up appt.: Dr. Palafox in 4 weeks. Dicharge Diet: Cardiac Diet Activity as Tolerated: Yes Home Medications Reviewed patient Home Medication Reconciliation Form Discharge Home Medications: Reviewed and agree with Discharge Medication list on patient's Discharge Instruction sheet Condition at discharge Stable. Instructions to patient/family follow up with Dr Palafox in 3 weeks Boris PALAFOX MD Jun 13, 2017 10:41 pm
== END 2017-06-13 17:45 | disposition home or self-care (01) ==
LOC: CATH 07:27 → ICU 12:45 → CATH 17:45
PROVIDERS: ATTEND Internal Medicine Interventional Cardiology
DX: I25.10 Atherosclerotic heart disease of native coronary artery without angina pectoris (principal); I25.82 Chronic total occlusion of coronary artery; I08.0 Rheumatic disorders of both mitral and aortic valves; I11.0 Hypertensive heart disease with heart failure; I50.23 Acute on chronic systolic (congestive) heart failure; I73.9 Peripheral vascular disease, unspecified; E11.9 Type 2 diabetes mellitus without complications; I25.2 Old myocardial infarction; Z79.4 Long term (current) use of insulin; Z79.82 Long term (current) use of aspirin; Z79.899 Other long term (current) drug therapy; Z87.891 Personal history of nicotine dependence
CPT/HCPCS: 36221; 36415; 80053; 82810; 85027; 85347; 85610; 85730; 87081; 93460; 93567; 93571; 93572

== ENCOUNTER 2017-08-19 08:42 | Outpatient (RCR) | payer MEDICARE ==
[~2017-08-19 08:42] MED LIST changes: -SPIR25TA3 PO; +SPIR25TA5 PO
[2017-08-19 08:56] LABS: BASOPHILS % (AUTO) 0 % (0-10); EOSINOPHILS # (AUTO) 0.6 10^3/uL (0.0-0.3); EOSINOPHILS % (AUTO) 8 % (0-10); HEMATOCRIT 37 % (40-54); HEMOGLOBIN 13.1 G/DL (13.3-17.7); LYMPHOCYTES # (AUTO) 1.6 X 10^3 (1.0-4.0); LYMPHOCYTES % (AUTO) 21 % (12-44); MEAN CORPUSCULAR HEMOGLOBIN 31 PG (25-34); MEAN CORPUSCULAR HGB CONC 35 G/DL (32-36); MEAN CORPUSCULAR VOLUME 87 FL (80-99); MEAN PLATELET VOLUME 8.9 FL (7.4-10.4); MONOCYTES # (AUTO) 0.9 X 10^3 (0.0-1.0); MONOCYTES % (AUTO) 11 % (0-12); NEUTROPHILS # (AUTO) 4.7 X 10^3 (1.8-7.8); NEUTROPHILS % (AUTO) 60 % (42-75); PLATELET COUNT 225 10^3/uL (130-400); RED BLOOD COUNT 4.28 10^6/uL (4.35-5.85); RED CELL DISTRIBUTION WIDTH 14.3 % (10.0-14.5); WHITE BLOOD COUNT 7.9 10^3/uL (4.3-11.0)
[2017-08-19 09:20] LABS: ALBUMIN 4.3 GM/DL (3.2-4.5); BILIRUBIN,TOTAL 0.7 MG/DL (0.1-1.0); CALCIUM 10.6 MG/DL (8.5-10.1); CREATININE SERUM 1.31 MG/DL (0.60-1.30); POTASSIUM 4.7 MMOL/L (3.6-5.0)
[2017-12-03] MEDS ORDERED: CLOP75TA28 PO (12:23)
== END 2017-11-17 | disposition home or self-care (01) ==
LOC: ONC 08:42
PROVIDERS: ATTEND Internal Medicine Hematology & Oncology
DX: Z08 Encounter for follow-up examination after completed treatment for malignant neoplasm (principal); Z85.820 Personal history of malignant melanoma of skin; Z79.899 Other long term (current) drug therapy
CPT/HCPCS: 80053; 83615; 85025; 99213

== ENCOUNTER 2017-11-29 12:40 | Outpatient (RCR) | payer MEDICARE, BC | END 2017-12-01 | disposition home or self-care (01) | LOC: CR 12:40 | PROVIDERS: ATTEND Internal Medicine Interventional Cardiology | DX: Z48.812 Encounter for surgical aftercare following surgery on the circulatory system (principal); Z95.2 Presence of prosthetic heart valve | CPT/HCPCS: 93798 ==

== ENCOUNTER 2017-12-03 06:36 | Day surgery (SDC) | payer MEDICARE, BC ==
[2017-12-03] VITALS (11 sets, daily range): BP systolic 121–153; BP diastolic 50–87
[~2017-12-03] VITALS: Ht 177.8 cm; Wt 97.5 kg
[2017-12-03] MEDS ORDERED: HEParin (CATH LAB) 2,000 ML IV ONE (06:51)
[2017-12-03] MEDS ORDERED: LIDOCAINE 1% INJ 20 ML 20 ML VIAL ONE (06:51)
[2017-12-03] MEDS ORDERED: NS IV 1000 ML 1,000 ML ONE (06:51)
[2017-12-03] MEDS ORDERED: NS IV 1000 ML 1,000 ML IV SCH ×2 (07:00→12:03)
[2017-12-03 07:36] LABS: HEMOGLOBIN 14.6 G/DL (13.3-17.7); MEAN PLATELET VOLUME 9.8 FL (7.4-10.4); RED BLOOD COUNT 4.59 10^6/uL (4.35-5.85); RED CELL DISTRIBUTION WIDTH 12.8 % (10.0-14.5); WHITE BLOOD COUNT 7.1 10^3/uL (4.3-11.0)
[2017-12-03] MEDS ORDERED: FURO40TA4 PO (07:38)
[2017-12-03] MEDS ORDERED: CARV3.12 PO (07:38)
[2017-12-03] MEDS ORDERED: SPIR25TA5 PO (07:38)
[2017-12-03 07:52] LABS: PROTHROMBIN TIME PATIENT 12.9 SEC (12.2-14.7)
[2017-12-03 08:02] LABS: ALANINE AMINOTRANSFERASE 19 U/L (0-55); ALBUMIN 4.5 GM/DL (3.2-4.5); ALKALINE PHOSPHATASE 84 U/L (40-136); BILIRUBIN,TOTAL 0.6 MG/DL (0.1-1.0); BUN/CREATININE RATIO 19; CALCIUM 9.9 MG/DL (8.5-10.1); CARBON DIOXIDE 22 MMOL/L (21-32); CHLORIDE 104 MMOL/L (98-107); CREATININE SERUM 1.14 MG/DL (0.60-1.30); GFR ESTIMATED > 60; GLUCOSE 144 MG/DL (70-105); POTASSIUM 4.5 MMOL/L (3.6-5.0); SODIUM 138 MMOL/L (135-145); TOTAL PROTEIN 7.9 GM/DL (6.4-8.2)
[2017-12-03] MEDS ORDERED: MIDAZOLAM 5 MG/5 ML (VERSED) VIAL ONE (08:52)
[2017-12-03] MEDS ORDERED: HEParin 1000 UNIT/ML (10ML VIAL) FOR BOLUS ONE (08:52)
[2017-12-03] MEDS ORDERED: fentaNYL INJECTION 100 MCG/2 ML AMP ONE (08:52)
--- NOTE | 2017-12-03 12:03 | Cardiac Procedure Note-CS/ASA ---
Pre-Procedure Note Pre-Op Procedure Note H&P Reviewed The H&P was reviewed, patient examined and no changes noted. Date H&P Reviewed: Dec 03, 2017 Time H&P Reviewed: 09:00 Conscious Sedation Pre-Proced Time Reviewed: 09:00 ASA Class: 3 Airway Mallampati Classification: ([place] appropriate class) I. II. III, IV Lungs Heart ASA score ASA 1: a normal healthy patient ASA 2: a patient with a mild systemic disease (mid diabetes, controlled hypertension, obesity ASA 3: a patient with a severe systemic disease that limits activity (angina , COPD, prior Myocardial infarction) ASA 4: a patient with an incapacitating disease that is a constant threat to life (CHF, renal failure) ASA 5: a moribund patient not expected to survive 24 hrs. (ruptured aneurysm) ASA 6: a declared brain patient whose organs are being harvested. For emergent operations, add the letter E after the classification Grade 1 Sedation Plan: Analgesia, Amnesia, Plan communicated to team members, Discussed options with patient/fam, Discussed risks with patient/fam Note The patient is an appropriate candidate to undergo the planned procedure, sedation, and anesthesia. The patient immediately re-assessed prior to indication. Boris BROOKS MD Dec 03, 2017 12:03
[2017-12-03] MEDS ORDERED: PATIENT MAY USE OWN MEDS, ALL PO SCH (12:15)
--- NOTE | 2017-12-03 12:21 | Coronary Angiography Report ---
Peripheral Angiography DATE OF SERVICE: 12/03/17 PRIMARY PHYSICIAN: Dr. Tanvi Maxwell PERFORMING INTERVENTIONALIST: Dr. Alex Palafox INDICATION: PAD. PREOPERATIVE INDICATION: PAD. POSTOPERATIVE DIAGNOSIS: Severe PAD. HISTORY: This is a 82-year-old gentleman with complain of claudication and severely abnormal HELADIO and TBI. Right worse than the left. Peripheral angiography was recommended. PROCEDURE PERFORMED: 1. Abdominal aortogram. 2. Bilateral lower extremity runoff. 3. Multiple selective right lower extremity angiograms. SPECIMENS: None. ANESTHESIA: Conscious sedation. BLOOD LOSS: 20 mL. COMPLICATIONS: None. CONTRAST USED: 160 ml. FLUOROSCOPY DOSE: 953 Mgy. FLUOROSCOPY TIME: 16.6 minutes. ANTICOAGULATION: IV heparin. DESCRIPTION OF PROCEDURE: The patient was brought to the corn lab technician after informed consent was taken. All the risks and complications were explained in detail. The patient was draped and prepped in the usual sterile fashion. Access was gained in the left femoral artery with a 6 Qatari sheath. A UF catheter was advanced on a J-tipped guidewire in the mid abdominal aorta and abdominal aortogram was performed. The UF catheter was then pulled back to just above the bifurcation of the abdominal aorta and bilateral lower extremity runoff was done. We first used a stork wire and the UF catheter for crossover however we were unable to get into the right external iliac artery therefore the wire was taken out and a selective angiogram was performed with the tip of the UF catheter in the right common iliac artery. We then took a 0.014 command wire but were not successful in getting into the SFA. We then took the UF catheter out and took a straight tipped catheter with angled Glidewire and were able to get into the right EMPLOYMENT EVALUATOR/CASE MANAGER. The tip of the catheter was placed in the right EMPLOYMENT EVALUATOR/CASE MANAGER and another selective angiogram of the SFA was performed. However we were not able to push the catheter forward over angled Glidewire, therefore we exchanged the straight tipped catheter with angled glide catheter and were able to advance to it on top of angled Glidewire into the mid SFA and another selective angiogram was performed. The wire was put back in and the glide catheter was advanced to the level of distal popliteal artery and selective angiogram of the right below the knee was performed. At the end of the procedure the glide catheter was pulled back to the level of the bifurcation of the distal abdominal aorta and a quick picture was taken which showed no vascular complication. The glide catheter was taken out of the body and closure of the left femoral artery was performed with a Mynx closure device. FINDINGS: Patent bilateral renal arteries. Mild diffuse disease in the mid and distal abdominal aorta. Calcification is noted. No significant disease in the left common and external iliac artery. Severe ostial stenosis of left internal iliac artery. Moderate calcified stenosis is noted in the left common femoral artery. Moderate to severe stenosis in the proximal left SFA. Moderate diffuse calcified disease in the mid, distal SFA and proximal popliteal artery. Moderate to severe calcified disease segment in the distal left popliteal artery. 1 vessel runoff below the left knee which is very likely a posterior tibial artery with subtotal occlusion in the proximal segment. Total occlusion of the deep peroneal and anterior tibial artery. Moderate calcified diseased segment in the right common iliac artery. Very tortuous right distal common iliac artery and external iliac artery. Small AV fistula noted in the distal right SFA filling deep saphenous vein. Mild diffuse disease in the right SFA. No significant disease in the right popliteal artery. At least moderate calcification is noted in the right SFA and popliteal artery. Severe stenosis in the right TP trunk with heavy calcification. Single-vessel runoff below the knee which is an anterior tibial artery which is occluded in the distal segment. Diffusely severe diseased deep peroneal and posterior tibial artery with heavy calcification, with no contribution to flow to the foot. CONCLUSION: 1. Severe PAD as noted above. Intervention to the right TP trunk and distal SFA AV fistula not done due to single-vessel runoff below the knee and absence of critical limb ischemia. 2. Continue long-term aspirin. Add Plavix. 3. Continue cardiac rehabilitation. 4. Discussed at length with the patient and family. Alex Palafox MD, FACP, FACC, [facility] Vascular Medicine and Endovascular Interventions Boris PALAFOX MD Dec 03, 2017 12:21
[2017-12-03] MEDS ORDERED: CLOP75TA28 PO (12:23)
--- NOTE | 2017-12-03 12:24 | Discharge Inst-Post CATH ---
Discharge Inst-CATH Post Cardiac Cath D/C Inst Follow Up/Plan Dr Palafox in three to four weeks. CARDIAC CATH DISCHARGE INSTRUCTIONS *Hold Metformin for 48 hours post heart cath. ACTIVITY * Go Home directly and rest. * Limit activity of the leg (or wrist if it was used) for 7 days including aerobics, swimming, jogging, bicycling, etc. * Restrict stair-climbing for 7 days if possible, if not, climb up with your non -cath leg, then bring together on the same step. * Avoid lifting, pushing, pulling or excessive movement of the affected extremity for 7 days. * Customary sexual activity may be resumed after 2 days-use caution not to use a position that strains or causes pain to the affected extremity. * No driving for 24 hours. * NO SMOKING. * Avoid straining for bowel movements for 7 days. * Gentle walking on level ground is allowed. * Returning to work will depend on the type of procedure and the results. Your doctor will discuss this with you. CALL YOUR DOCTOR FOR ANY OF THE FOLLOWING: *If bleeding from the puncture site occurs- Apply gentle pressure to site with clean cloth and call your doctor or EMS. * If a knot or lump forms under the skin, increases in size, or causes pain. * If bruising appears to be worsening or moving further down your leg instead of disappearing. * Temperature above 101 F. CARE OF YOUR GROIN INCISION; * Bruising or purple discoloration of the skin near the puncture site is common. * You may shower only, no bathtub bathing for 5 days. Be careful to avoid slipping as your leg may feel stiff. * If a closure device was used on your femoral artery, please see the attached guide regarding care of the device and your leg. * REMOVE the dressing from your groin the next day after your procedure in the shower. CARE OF YOUR WRIST INCISION; * Bruising or purple discoloration of the skin near the puncture site is common. * You may shower. * DO NOT submerge wrist. * Remove dressing in 24 hours. Boris PALAFOX MD Dec 03, 2017 12:24
--- NOTE | 2017-12-03 12:26 | Cardiology Discharge Summary ---
Diagnosis/Chief Complaint Date of Admission 12/03/2017 Date of Discharge 12/03/2017 Admission Diagnosis Severe PAD Final/Discharge Diagnosis Severe PAD Chief Complaint/HPI Chief Complaint/HPI This is a 82-year-old gentleman with complain of claudication and severely abnormal HELADIO and TBI. Right worse than the left. Peripheral angiography was recommended. Discharge Summary Procedures Peripheral angiography shows bilateral lower extremity severe PAD with one- vessel runoff below the knee. Please see separate dictation for details results. Discharge Physical Examination Stable. Hospital Course Unremarkable. Pending Labs Laboratory Tests 12/03/17 07:10: White Blood Count 7.1, Red Blood Count 4.59, Hemoglobin 14.6, Hematocrit 43, Mean Corpuscular Volume 94, Mean Corpuscular Hemoglobin 32, Mean Corpuscular Hemoglobin Concent 34, Red Cell Distribution Width 12.8, Platelet Count 173, Mean Platelet Volume 9.8, Prothrombin Time 12.9, INR Comment 1.0, Activated Partial Thromboplast Time 28, Sodium Level 138, Potassium Level 4.5, Chloride Level 104, Carbon Dioxide Level 22, Anion Gap 12, Blood Urea Nitrogen 22, Creatinine 1.14, Estimat Glomerular Filtration Rate > 60, BUN/Creatinine Ratio 19, Glucose Level 144, Calcium Level 9.9, Total Bilirubin 0.6, Aspartate Amino Transf (AST/SGOT) 21, Alanine Aminotransferase (ALT/SGPT) 19, Alkaline Phosphatase 84, Total Protein 7.9, Albumin 4.5 Discussion & Recommendations Discussion Discussed at length with the patient's family. Will start aggressive medical therapy with aspirin, add Plavix. Continue cilostazol, Lipitor, beta dayana, ANGIE inhibitor. Continue cardiac rehabilitation. Follow up appt.: Dr. Palafox in 3-4 weeks. Dicharge Diet: Cardiac Diet Activity as Tolerated: Yes Home Medications Reviewed patient Home Medication Reconciliation performed by pharmacy medication reconciliations artificial breeding technician and/or nursing. Patients Allergies have been reviewed. Discharge Home Medications: Reviewed and agree with Discharge Medication list on patient's Discharge Instruction sheet Condition at discharge Stable. Instructions to patient/family Dr Palafox in three to four weeks. Boris PALAFOX MD Dec 03, 2017 12:26
[2017-12-04] MEDS ORDERED: ASPIRIN E.C. 81 MG (ECOTRIN) TAB PO SCH (09:00)
[2017-12-04] MEDS ORDERED: CLOPIDOGREL 75 MG (PLAVIX) TABLET PO SCH (09:00)
== END 2017-12-03 15:55 | disposition home or self-care (01) ==
LOC: CATH 06:36
PROVIDERS: ATTEND Internal Medicine Interventional Cardiology
DX: I70.213 Atherosclerosis of native arteries of extremities with intermittent claudication, bilateral legs (principal); I70.92 Chronic total occlusion of artery of the extremities; I70.0 Atherosclerosis of aorta; I11.0 Hypertensive heart disease with heart failure; I50.9 Heart failure, unspecified; I42.9 Cardiomyopathy, unspecified; I25.10 Atherosclerotic heart disease of native coronary artery without angina pectoris; I08.0 Rheumatic disorders of both mitral and aortic valves; E66.9 Obesity, unspecified; Z68.30 Body mass index [BMI] 30.0-30.9, adult; Z79.82 Long term (current) use of aspirin; Z79.4 Long term (current) use of insulin; Z79.899 Other long term (current) drug therapy
CPT/HCPCS: 36248; 36415; 75625; 75716; 80053; 85027; 85610; 85730; 87081; 93005

== ENCOUNTER → 2018-01-01 | Outpatient (RCR) | payer MEDICARE, BC ==
[~2018-01-01] MED LIST changes: -AMLO10TA2 PO; +AMLO10TA6 PO; +CARV3.12 PO; +CLOP75TA28 PO; -RAMI5CAP PO; +RAMI5CAP65 PO
== END | disposition home or self-care (01) ==
LOC: CR 12-02 08:00 → CR3 12-02 15:00
PROVIDERS: ATTEND Internal Medicine Interventional Cardiology
DX: Z48.812 Encounter for surgical aftercare following surgery on the circulatory system (principal); Z95.2 Presence of prosthetic heart valve; Z29.8 Encounter for other specified prophylactic measures

== ENCOUNTER 2018-01-31 07:33 | Outpatient (RCR) | payer MEDICARE, BC | END 2018-02-02 | disposition home or self-care (01) | LOC: CR3 07:33 | PROVIDERS: ATTEND Internal Medicine Interventional Cardiology | DX: Z48.812 Encounter for surgical aftercare following surgery on the circulatory system (principal); Z95.2 Presence of prosthetic heart valve; Z29.8 Encounter for other specified prophylactic measures ==

== ENCOUNTER → 2018-03-05 | Outpatient (RCR) | payer MEDICARE, BC | END | disposition home or self-care (01) | LOC: CR3 02-03 06:00 | PROVIDERS: ATTEND Internal Medicine Interventional Cardiology | DX: Z29.8 Encounter for other specified prophylactic measures (principal); Z48.812 Encounter for surgical aftercare following surgery on the circulatory system; Z95.2 Presence of prosthetic heart valve ==

== ENCOUNTER 2018-03-17 06:22 | Outpatient (RCR) | payer MEDICARE, BC | END 2018-04-06 | disposition home or self-care (01) | LOC: CR3 06:22 | PROVIDERS: ATTEND Internal Medicine Interventional Cardiology | DX: Z48.812 Encounter for surgical aftercare following surgery on the circulatory system (principal); Z95.2 Presence of prosthetic heart valve; Z29.8 Encounter for other specified prophylactic measures ==

== ENCOUNTER 2018-04-18 07:10 | Outpatient (RCR) | payer MEDICARE, BC ==
[2018-05-02] MEDS ORDERED: CARV3.122 PO (08:57)
[2018-05-02] MEDS ORDERED: CLOP75TA69 PO (08:57)
[2018-05-02] MEDS ORDERED: Guaifenesin/Codeine PO (09:54)
[2018-05-02] MEDS ORDERED: BENZ100C18 PO (09:54)
[2018-05-02] MEDS ORDERED: ALBU2.5V4 INH (09:54)
[2018-05-02] MEDS ORDERED: CEFD300C3 PO (09:54)
[2018-05-02] MEDS ORDERED: PRED10TA22 PO (09:54)
== END 2018-05-18 | disposition home or self-care (01) ==
LOC: CR3 07:10
PROVIDERS: ATTEND Internal Medicine Interventional Cardiology
DX: Z48.812 Encounter for surgical aftercare following surgery on the circulatory system (principal); Z95.2 Presence of prosthetic heart valve

== ENCOUNTER 2018-05-01 15:19 | Observation (INO) | payer MEDICARE, BC ==
[~2018-05-01] VITALS: Ht 177.8 cm; Wt 97.5 kg
[2018-05-01 15:45] VITALS: BP 169/83
[2018-05-01] MEDS ORDERED: guaiFENesin/CODEINE (ROBITUSSIN AC) 10ML UDC PO PRN (15:45)
[2018-05-01] MEDS ORDERED: ONDANSETRON 4 MG/2 ML (SDV) Z0FRAN IVP PRN (15:45)
[2018-05-01] MEDS ORDERED: HYDROcodone/APAP 5 MG/325 MG (LORTAB) TAB PO PRN (15:45)
[2018-05-01] MEDS ORDERED: CALCIUM CARBONATE 500 MG (TUMS) TAB.CHEW PO PRN (15:45)
[2018-05-01] MEDS ORDERED: ALPRAZolam 0.25 MG (XANAX) TAB PO PRN (15:45)
[2018-05-01] MEDS ORDERED: ACETAMINOPHEN 500 MG TAB (TYLENOL) PO PRN (15:45)
[2018-05-01] MEDS ORDERED: DOCUSATE SODIUM 100 MG (COLACE) CAP PO PRN (15:45)
[2018-05-01] MEDS ORDERED: cefTRIAXone FOR IV USE 1,000 MG in NS (IVPB) 50 ML IV SCH (15:45)
[2018-05-01] MEDS ORDERED: diphenhydrAMINE 25 MG TAB (BENADRYL) PO PRN (15:45)
--- NOTE | 2018-05-01 15:45 | NUR ---
PETRONA GARCIA JR admitted to room 414-1, with an admitting diagnosis of wheezing, on 05/01/[address] Ortiz office, accompanied by , Anne.PETRONA GARCIA JR introduced to surroundings, call light, bed controls, phone, TV, temperature control, lights, meal times, smoking policy, visitor policy, side rail policy, bathrooms and showers. Patient Rights given to patient in the handbook. PETRONA GARCIA JR verbalizes understanding that [facility] is not responsible for the loss or damage to any personal effects or valuables that are kept in the patients possession during their hospitalization. Patient Care Plans and discharge planning were discussed with the patient. PETRONA GARCIA JR verbalizes understanding of Interdisciplinary Patient Education. Patient and/or family were informed about the Rapid Response Team and its purpose.
--- OUTSIDE RECORDS SUMMARY | 2018-05-01 15:53 | XMS REPORT | Clinical Summary ---
Author Author [facility] Organization [facility] Address Unknown Phone Unavailable Care Team Providers Care Preschool Disability Teacher Name Role Phone Lainey Freeman MD Unavailable Tanvi Maxwell DO PCP Darci Palafox MD 21 Source Comments Some departments are not documenting in the electronic medical record. If you do not see the information that you expected, contact Release of Information in the Health Information Management department at [phone] for further assistance in locating additional records.[facility] Allergies No Known Allergies Medications End Date Status Medication Sig Dispensed Refills Start Date Active vitamins, multiple Cap Take 1 Cap by 0 mouth Daily. Active Aspirin 81 mg Tab Take 1 tablet 0 by mouth daily. Active Hgufr-5-XQN-EPA-Fish Oil Take 1 0 (FISH OIL) 1,000 mg (120 capsule by mg-180 mg) cap mouth daily. Active insulin lispro(+) Inject 20 0 (HUMALOG KWIKPEN INSULIN) Units under 100 unit/mL injection PEN the skin three times daily with meals. Active insulin glargine (LANTUS) Inject 35 0 100 unit/mL injection Units under the skin daily. 1 vial contains 10mL Active albuterol (PROAIR HFA, Inhale 2 0 VENTOLIN HFA, OR puffs by PROVENTIL HFA) 90 mouth into mcg/actuation inhaler the lungs every 4 hours as needed for Wheezing or Shortness of Breath. Shake well before use. Active atorvastatin (LIPITOR) 20 Take 20 mg by 0 mg tablet mouth at bedtime daily. Active carvedilol (COREG) 3.125 Take 3.125 mg 0 mg tablet by mouth twice daily. Take with food. Active cilostazol(+) (PLETAL) Take 100 mg 0 100 mg tablet by mouth twice daily. Take on an empty stomach at least 30 minutes before or 2 hours after food. Active donepezil (ARICEPT) 10 mg Take 10 mg by 0 tablet mouth at bedtime daily. Active nitroglycerin (NITROSTAT) Place 0.4 mg 0 0.4 mg tablet under tongue every 5 minutes as needed for Chest Pain. Max of 3 tablets, call 911. Active spironolactone Take 25 mg by 0 (ALDACTONE) 25 mg tablet mouth daily. Take with food. Active ramipril (ALTACE) 5 mg Take 1 0 capsuleIndications: capsule by 8 Nonrheumatic aortic valve mouth daily. stenosis, Coronary artery disease involving ho-chunk coronary artery of ho-chunk heart without angina pectoris, Acute on chronic systolic heart failure, NYHA class 3 (HCC), Type 2 diabetes mellitus with diabetic chronic kidney disease, unspecified CKD stage, unspecified termite technician insulin use status Active clopiDOGrel (PLAVIX) 75 Take 1 tablet 90 tablet 3 mg tabletIndications: by mouth 8 Nonrheumatic aortic valve daily. stenosis, Coronary artery disease involving ho-chunk coronary artery of ho-chunk heart without angina pectoris, Acute on chronic systolic heart failure, NYHA class 3 (HCC), Type 2 diabetes mellitus with diabetic chronic kidney disease, unspecified CKD stage, unspecified group home insulin use status Active calcium carbonate/vitamin Take 1 tablet 0 D-3 (OSCAL-500+D) 1250 by mouth at mg/200 unit tablet bedtime daily. Calcium Carb 1250mg delivers 500mg elemental Ca Active acetaminophen (TYLENOL) Take 2 0 325 mg tablet tablets by 8 mouth every 6 hours as needed. Active senna/docusate Take 2 40 tablet 0 (SENOKOT-S) 8.6/50 mg tablets by 8 tablet mouth twice daily. Active amoxicillin (AMOXIL) 500 Take 4 tabs 4 capsule 2 mg capsuleIndications: by mouth 1 8 Prevention of Bacterial hour before Endocarditis dental procedures Active furosemide (LASIX) 40 mg Take 40 mg by 0 tablet mouth every 8 morning. 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 ~ continue TAVR work up with CTA as outpt Physical deconditioning Obesity Hyperlipemia PAD (peripheral artery disease) Resolved Problems Problem Noted Date Resolved Date Aortic valve stenosis 07/29/2017 08/08/2017 Overview: Added automatically from request for surgery [id number] Family History Medical History Relation Name Comments Heart Disease Father Relation Name Status Comments Father (Age 50) Mother 90s Social History Date Tobacco Use Types Packs/Day Years Used Quit: 08/07/1987 Former Smoker Cigarettes 1 30.0 Smokeless Tobacco: Never Used Alcohol Use Drinks/Week oz/Week Comments Yes occasionally Sex Assigned at Date Recorded Not on file Industry Job Start Date Occupation Not on file Not on file Not on file Travel End Travel History Travel Start No recent travel history available. Last Filed Vital Signs Time Taken Vital Sign Reading 09/06/2017 2:04 PM CDT Blood Pressure 114/70 09/06/2017 2:04 PM CDT Pulse 92 08/09/2017 7:45 AM CDT Temperature 37 C (98.6 F) - Respiratory Rate - 08/09/2017 7:45 AM CDT Oxygen Saturation 93% - Inhaled Oxygen - Concentration 09/06/2017 2:04 PM CDT Weight 95.3 kg (210 lb) 09/06/2017 2:04 PM CDT Height 177.8 cm (5' 10") 09/06/2017 2:04 PM CDT Body Mass Index 30.13 Plan of Treatment Health Maintenance Due Date Last Done Comments PHYSICAL (COMPREHENSIVE) 1942 EXAM DILATED EYE EXAM 1953 DTAP/TDAP VACCINES (1 - 1953 Tdap) FOOT EXAM 1953 SHINGLES RECOMBINANT 1985 VACCINE (1 of 2) PNEUMONIA (PCV13/PPSV23) 01/04/2000 VACCINES (1 of 2 - PCV13) INFLUENZA VACCINE 11/27/2017 HBA1C 02/05/2018 08/06/2017 Implants Device Identifier Shelf Expiration Date Model / Serial / Lot Implanted Type Area Manufactur er 05/09/2019 [id number] / [id number] N/A: Heart WINN Implanted: Qty: 1 on 08/07/2017 by LIFESCI Alvarado Garrido MD Results Not on filefrom Last 3 Months Insurance Payer Benefit Subscriber ID Type Phone Address Plan / Group MEDICARE MEDICARE xxxxxxxxxx Medicare PART A AND B BCBS [place] BCBS [place] xxxxxxxxx PPO FED EMP PROGRAM Advance Directives Patient has advance care planning documents, and code status on file. For more information, please contact: [facility] [address] [place] [address] Date Inactivated Comments Code Status Date Activated 08/09/2017 12:14 PM Full Code 08/07/2017 5:58 AM Provider has discussed Code Status Yes w/Patient or Family? 07/10/2017 11:26 AM Full Code 07/08/2017 6:16 PM Provider has discussed Code Status No, discussion not w/Patient or Family? necessary based on Dx
[2018-05-01] MEDS ORDERED: AZITHROMYCIN INJECTION 500 MG in NS (IVPB) 250 ML IV SCH (16:00)
--- OUTSIDE RECORDS SUMMARY | 2018-05-01 16:07 | XMS REPORT | Continuity of Care Document ---
Author Author [facility] Organization [facility] Address Unknown Phone Unavailable Allergies Active Description Code Type Severity Reaction Onset Reported/Identified Relationship to Patient Clinical Status Yes No Known Drug Allergies [id number] Drug Allergy Unknown N/A 06/06/2017 Medications There [...] INFARCT 10/07/2009 Ot 414.01 CORONARY ATHEROSCLEROSIS OF [place] CORON 10/07/2009 Ot 575.9 DIS OF GALLBLADDER [...] SHORE FAVIOLA Ot 414.01 CORONARY ATHEROSCLEROSIS OF [place] CORON 04/04/2013 RODRIGUEZ SHORE FAVIOLA Ot 443.9 [...] FOLLOW-UP, OTHER SURGERY 11/03/2014 SOLIS DE LEON RAILWAY SIGNALLING ENGINEER Ot 702.0 11/03/2014 DE LEONSOLIS Jiang RAILWAY SIGNALLING ENGINEER Ot V10.82 11/03/2014 DE LEONSOLIS Jiang RAILWAY SIGNALLING ENGINEER Ot V58.69 11/03/2014 DE LEONSOLIS S RAILWAY SIGNALLING ENGINEER Ot V67.09 11/04/2014 DE LEONSOLIS RAILWAY SIGNALLING ENGINEER Ot 702.0 11/04/2014 DE LEONSOLIS S RAILWAY SIGNALLING ENGINEER Ot V10.82 11/04/2014 DE LEONSOLIS S RAILWAY SIGNALLING ENGINEER Ot V58.69 11/04/2014 DE LEONSOLIS S RAILWAY SIGNALLING ENGINEER Ot V67.09 02/15/2015 AMAYA, BOBAN N Ot [...] 05/17/2015 AMAYA, BOBAN N Ot Z79.899 OTHER PROFESSOR OF POLITICAL SCIENCE (CURRENT) DRUG THERAPY 05/17/2015 BI CONDE Ot [...] LIVER FUNCTION STUDY 08/29/2015 SOLIS DE LEON RAILWAY SIGNALLING ENGINEER Ot 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 08/29/2015 SOLIS DE LEONP Ot 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 08/29/2015 SOLIS DE LEON Ot V58.69 OTH MED,LT,CURRENT USE 08/29/2015 AUDI DE LEONAH S RAILWAY SIGNALLING ENGINEER Ot V67.09 SURGERY FOLLOW-UP, OTHER SURGERY 09/14/2015 DE LEONSOLIS Jiang RAILWAY SIGNALLING ENGINEER Ot Z08 ENCNTR FOR FOLLOW-UP EXAM AFTER TRTMT FO 09/14/2015 SOLIS DE LEON RAILWAY SIGNALLING ENGINEER Ot Z79.899 OTHER PROFESSOR OF POLITICAL SCIENCE (CURRENT) DRUG THERAPY 09/14/2015 SOLIS DE LEON RAILWAY SIGNALLING ENGINEER Ot Z85.820 PERSONAL HISTORY OF MALIGNANT MELANOMA O 09/21/2015 DE LEONSOLIS Jiang RAILWAY SIGNALLING ENGINEER Ot Z08 ENCNTR FOR FOLLOW-UP EXAM AFTER TRTMT FO 09/21/2015 SOLIS DE LEON RAILWAY SIGNALLING ENGINEER Ot Z79.899 OTHER PROFESSOR OF POLITICAL SCIENCE (CURRENT) DRUG THERAPY 09/21/2015 DE LEONSOLIS RAILWAY SIGNALLING ENGINEER Ot Z85.820 PERSONAL HISTORY OF MALIGNANT MELANOMA [...] LIVER FUNCTION STUDY 05/16/2016 SOLIS DE LEON RAILWAY SIGNALLING ENGINEER Ot 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 05/16/2016 SOLIS DE LEON RAILWAY SIGNALLING ENGINEER Ot 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 05/16/2016 SOLIS DE LEON RAILWAY SIGNALLING ENGINEER Ot V58.69 OTH MED,LT,CURRENT USE 05/16/2016 SOLIS DE LEON RAILWAY SIGNALLING ENGINEER Ot V67.09 SURGERY FOLLOW-UP, OTHER SURGERY 05/28/2016 [...] LIVER FUNCTION STUDY 05/28/2016 SOLIS DE LEON RAILWAY SIGNALLING ENGINEER Ot 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, TYPE I [JUVENILE TYP 08/17/2016 BI CONDE Ot 172.2 MALIG MELANOMA EAR 08/17/2016 BI CONDE Ot 780.4 DIZZINESS AND GIDDINESS 08/17/2016 SOLIS DE LEON RAILWAY SIGNALLING ENGINEER Ot 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 08/17/2016 SOLIS DE LEON RAILWAY SIGNALLING ENGINEER Ot 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 08/17/2016 SOLIS DE LEON RAILWAY SIGNALLING ENGINEER Ot V58.69 OTH MED,LT,CURRENT USE 08/17/2016 SOLIS DE LEON RAILWAY SIGNALLING ENGINEER Ot V67.09 SURGERY FOLLOW-UP, OTHER SURGERY 08/17/2016 BI CONDE Ot 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 08/17/2016 BI CONDE Ot Z08 ENCNTR FOR FOLLOW-UP EXAM AFTER TRTMT FO 08/17/2016 BI CONDE Ot Z79.899 OTHER FPC (CURRENT) DRUG THERAPY 08/17/2016 BI CONDE Ot Z85.820 PERSONAL HISTORY OF MALIGNANT MELANOMA O 08/17/2016 SOLIS DE LEON RAILWAY SIGNALLING ENGINEER Ot Z08 ENCNTR FOR FOLLOW-UP EXAM AFTER TRTMT FO 08/17/2016 SOLIS DE LEON RAILWAY SIGNALLING ENGINEER Ot Z79.899 OTHER FPC (CURRENT) DRUG THERAPY 08/17/2016 SOLIS DE LEON RAILWAY SIGNALLING ENGINEER Ot Z85.820 PERSONAL HISTORY OF MALIGNANT MELANOMA O 09/03/2016 BI CONDE Ot 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 09/03/2016 BI CONDE Ot Z08 ENCNTR FOR FOLLOW-UP EXAM AFTER TRTMT FO 09/03/2016 BI CONDE Ot Z79.899 OTHER PROFESSOR OF POLITICAL SCIENCE (CURRENT) DRUG THERAPY 09/03/2016 BI CONDE Ot Z85.820 PERSONAL HISTORY OF MALIGNANT MELANOMA O 09/21/2016 BI CONDE Ot 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 09/21/2016 BI CONDE Ot Z08 ENCNTR FOR FOLLOW-UP EXAM AFTER TRTMT FO 09/21/2016 BI CONDE Ot Z79.899 OTHER FPC (CURRENT) DRUG THERAPY 09/21/2016 BI CONDE Ot Z85.820 PERSONAL HISTORY OF MALIGNANT MELANOMA O 09/26/2016 BI CONDE Ot 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 09/26/2016 BI CNODE Ot Z08 ENCNTR FOR FOLLOW-UP EXAM AFTER TRTMT FO 09/26/2016 BI CONDE Ot Z79.899 OTHER PROFESSOR OF POLITICAL SCIENCE (CURRENT) DRUG THERAPY 09/26/2016 BI CONDE Ot Z85.820 PERSONAL HISTORY OF MALIGNANT MELANOMA O 11/18/2016 BI CONDE Ot 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 11/18/2016 BI CONDE Ot Z08 ENCNTR FOR FOLLOW-UP EXAM AFTER TRTMT FO 11/18/2016 BI CONDE Ot Z79.899 OTHER FPC (CURRENT) DRUG THERAPY 11/18/2016 BI CONDE Ot [...] DIZZINESS AND GIDDINESS 06/04/2017 SOLIS DE LEON RAILWAY SIGNALLING ENGINEER Ot 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 06/04/2017 SOLIS DE LEON RAILWAY SIGNALLING ENGINEER Ot 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 06/04/2017 SOLIS DE LEONP Ot V58.69 OTH MED,LT,CURRENT USE 06/04/2017 SOLIS DE LEON RAILWAY SIGNALLING ENGINEER Ot V67.09 SURGERY FOLLOW-UP, OTHER SURGERY 06/04/2017 SOLIS DE LEON RAILWAY SIGNALLING ENGINEER Ot Z08 ENCNTR FOR FOLLOW-UP EXAM AFTER TRTMT FO 06/04/2017 SOLIS DE LEON RAILWAY SIGNALLING ENGINEER Ot Z79.899 OTHER PROFESSOR OF POLITICAL SCIENCE (CURRENT) DRUG THERAPY 06/04/2017 SOLIS DE LEON Ot Z85.820 PERSONAL HISTORY OF MALIGNANT MELANOMA O 06/04/2017 BI CONDE Ot 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 06/04/2017 BI CONDE Ot Z08 ENCNTR FOR FOLLOW-UP EXAM AFTER TRTMT FO 06/04/2017 BI CONDE Ot Z79.899 OTHER PROFESSOR OF POLITICAL SCIENCE (CURRENT) DRUG THERAPY 06/04/2017 BI CONDE Ot Z85.820 PERSONAL HISTORY OF MALIGNANT MELANOMA O 06/04/2017 RODRIGUEZ SHORE FAVIOLA Ot J44.9 CHRONIC OBSTRUCTIVE PULMONARY DISEASE, U 06/04/2017 FAVIOLA FRIAS DO Ot R06.02 SHORTNESS OF BREATH 06/06/2017 Ot 250.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, TYPE I [JUVENILE TYP 06/06/2017 BI CONDE Dahiana Ot 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 06/06/2017 BI CONDE Dahiana Ot Z08 ENCNTR FOR FOLLOW-UP EXAM AFTER TRTMT FO 06/06/2017 BI CONDE Ot Z79.899 OTHER FPC (CURRENT) DRUG THERAPY 06/06/2017 BI CONDE Ot Z85.820 PERSONAL HISTORY OF MALIGNANT MELANOMA O 06/06/2017 RODRIGUEZ SHORE FAVIOLA Ot R06.2 WHEEZING 06/09/2017 RODRIGUEZ SHORE FAVIOLA Ot E11.9 TYPE 2 DIABETES MELLITUS WITHOUT COMPLIC 06/09/2017 RODRIGUEZ SHORE FAVIOLA Ot H91.90 UNSPECIFIED HEARING LOSS, UNSPECIFIED EA 06/09/2017 RODRIGUEZ SHORE FAVIOLA Ot I11.0 HYPERTENSIVE HEART DISEASE WITH HEART FA 06/09/2017 RODRIGUEZ SHORE FAVIOLA Ot I25.10 ATHSCL HEART DISEASE OF [place] CORONARY 06/09/2017 RODRIGUEZ SHORE FAVIOLA Ot I25.2 OLD MYOCARDIAL INFARCTION 06/09/2017 MACK FRIAS DOI Ot I35.2 NONRHEUMATIC AORTIC (VALVE) STENOSIS WIT 06/09/2017 RODRIGUEZ SHORE FAVIOLA Ot I50.23 ACUTE ON CHRONIC SYSTOLIC (CONGESTIVE) H 06/09/2017 RODRIGUEZ SHORE FAVIOLA Ot M10.9 GOUT, UNSPECIFIED 06/09/2017 RODRIGUEZ SHORE FAVIOLA Ot R01.1 CARDIAC MURMUR, UNSPECIFIED 06/09/2017 FAVIOLA FRIAS DO Ot Z79.4 FPC (CURRENT) USE OF INSULIN 06/09/2017 FAVIOLA FRIAS DO Ot Z85.820 PERSONAL HISTORY OF MALIGNANT MELANOMA O 06/09/2017 FAVIOLA FRIAS DO Ot Z87.891 PERSONAL HISTORY OF NICOTINE DEPENDENCE 06/09/2017 FAVIOLA FRIAS DO Ot Z96.659 PRESENCE OF UNSPECIFIED ARTIFICIAL KNEE 06/13/2017 Boris BROOKS MD Ot E11.9 TYPE 2 DIABETES MELLITUS WITHOUT COMPLIC 06/13/2017 Boris BROOKS MD 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 06/13/2017 Boris BROOKS MD Ot I11.0 HYPERTENSIVE HEART DISEASE WITH HEART FA 06/13/2017 Boris BROOKS MD Ot I25.10 ATHSCL HEART DISEASE OF [place] CORONARY 06/13/2017 Boris BROOKS MD Ot I25.2 OLD MYOCARDIAL INFARCTION 06/13/2017 Boris BROOKS MD Ot 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 06/13/2017 Boris BROOKS MD Ot I50.23 ACUTE ON CHRONIC SYSTOLIC (CONGESTIVE) H 06/13/2017 Boris BROOKS MD Ot I73.9 PERIPHERAL VASCULAR DISEASE, UNSPECIFIED 06/13/2017 Boris BROOKS MD Ot Z79.4 PROFESSOR OF POLITICAL SCIENCE (CURRENT) USE OF INSULIN 06/13/2017 Boris BROOKS MD Ot Z79.82 FPC (CURRENT) USE OF ASPIRIN 06/13/2017 Boris BROOKS MD Ot Z79.899 OTHER PROFESSOR OF POLITICAL SCIENCE (CURRENT) DRUG THERAPY 06/13/2017 Boris BROOKS MD, Ot Z87.891 PERSONAL HISTORY OF NICOTINE DEPENDENCE 06/14/2017 Boris BROOKS MD Ot E11.9 TYPE 2 DIABETES MELLITUS WITHOUT COMPLIC 06/14/2017 Boris BROOKS MD 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 06/14/2017 Boris BROOKS MD Ot I11.0 HYPERTENSIVE HEART DISEASE WITH HEART FA 06/14/2017 Boris BROOKS MD, Ot I25.10 ATHSCL HEART DISEASE OF [place] CORONARY 06/14/2017 Boris BROOKS MD, Ot I25.2 OLD MYOCARDIAL INFARCTION 06/14/2017 Boris BROOKS MD, Ot 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 06/14/2017 Boris BROOKS MD, Ot I50.23 ACUTE ON CHRONIC SYSTOLIC (CONGESTIVE) H 06/14/2017 Boris BROOKS MD, Ot I73.9 PERIPHERAL VASCULAR DISEASE, UNSPECIFIED 06/14/2017 Boris BROOKS MD, Ot Z79.4 FPC (CURRENT) USE OF INSULIN 06/14/2017 Boris BROOKS MD, Ot Z79.82 PROFESSOR OF POLITICAL SCIENCE (CURRENT) USE OF ASPIRIN 06/14/2017 Boris BROOKS MD, Ot Z79.899 OTHER FPC (CURRENT) DRUG THERAPY 06/14/2017 Boris BROOKS MD, Ot Z87.891 PERSONAL HISTORY OF NICOTINE DEPENDENCE 06/26/2017 FAVIOLA FRIAS DO Ot R06.2 WHEEZING 07/04/2017 FAVIOLA FRIAS DO Ot R06.2 WHEEZING 09/03/2017 Boris BROOKS MD Ot Z48.812 ENCNTR FOR SURGICAL AFTCR FOLLOWING SURG 09/03/2017 Boris BROOKS MD Ot Z95.2 PRESENCE OF PROSTHETIC HEART VALVE 09/17/2017 BI CONDE Ot Z08 ENCNTR FOR FOLLOW-UP EXAM AFTER TRTMT FO 09/17/2017 BI CONDE Ot Z79.899 OTHER PROFESSOR OF POLITICAL SCIENCE (CURRENT) DRUG THERAPY 09/17/2017 BI CONDE Ot Z85.820 PERSONAL HISTORY OF MALIGNANT MELANOMA O 09/25/2017 BI CONDE Ot Z08 ENCNTR FOR FOLLOW-UP EXAM AFTER TRTMT FO 09/25/2017 BI CONDE Ot Z79.899 OTHER FPC (CURRENT) DRUG THERAPY 09/25/2017 BI CONDE Ot Z85.820 PERSONAL HISTORY OF MALIGNANT MELANOMA O 10/18/2017 Boris BROOKS MD, Ot Z48.812 ENCNTR FOR SURGICAL AFTCR FOLLOWING SURG 10/18/2017 Boris BROOKS MD Ot Z95.2 PRESENCE OF PROSTHETIC HEART VALVE 10/23/2017 Boris BROOKS MD Ot Z48.812 ENCNTR FOR SURGICAL AFTCR FOLLOWING SURG 10/23/2017 Boris BROOKS MD, Ot Z95.2 PRESENCE OF PROSTHETIC HEART VALVE 10/25/2017 Boris BROOKS MD Ot I35.0 NONRHEUMATIC AORTIC (VALVE) STENOSIS 10/25/2017 Boris BROOKS MD Ot I35.1 NONRHEUMATIC AORTIC (VALVE) INSUFFICIENC 10/25/2017 Boris BROOKS MD Ot I42.9 CARDIOMYOPATHY, UNSPECIFIED 10/25/2017 Boris BROOKS MD Ot I50.22 CHRONIC SYSTOLIC (CONGESTIVE) HEART FAIL 11/13/2017 Boris BROOKS MD Ot I35.0 NONRHEUMATIC AORTIC (VALVE) STENOSIS 11/13/2017 Boris BROOKS MD Ot I35.1 NONRHEUMATIC AORTIC (VALVE) INSUFFICIENC 11/13/2017 Boris BROOKS MD Ot I42.9 CARDIOMYOPATHY, UNSPECIFIED 11/13/2017 Boris BROOKS MD Ot I50.22 CHRONIC SYSTOLIC (CONGESTIVE) HEART FAIL 11/17/2017 BI CONDE Ot Z08 ENCNTR FOR FOLLOW-UP EXAM AFTER TRTMT FO 11/17/2017 BI CONDE Ot Z79.899 OTHER FPC (CURRENT) DRUG THERAPY 11/17/2017 BI CONDE Ot Z85.820 PERSONAL HISTORY OF MALIGNANT MELANOMA O 11/18/2017 FRIAS DO, FAVIOLA Ot 790.5 ABN SERUM ENZY LEVEL NEC 11/18/2017 Ot 250.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, TYPE I [JUVENILE TYP 11/18/2017 BI CONDE Ot 172.2 MALIG MELANOMA EAR 11/18/2017 BI CONDE Ot 780.4 DIZZINESS AND GIDDINESS 11/18/2017 SOLIS DE LEON RAILWAY SIGNALLING ENGINEER Ot 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 11/18/2017 SOLIS DE LEON RAILWAY SIGNALLING ENGINEER Ot 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 11/18/2017 SOLIS DE LEON RAILWAY SIGNALLING ENGINEER Ot V58.69 OTH MED,LT,CURRENT USE 11/18/2017 SOLIS DE LEON RAILWAY SIGNALLING ENGINEER Ot V67.09 SURGERY FOLLOW-UP, OTHER SURGERY 11/18/2017 SOLIS DE LEON RAILWAY SIGNALLING ENGINEER Ot Z08 ENCNTR FOR FOLLOW-UP EXAM AFTER TRTMT FO 11/18/2017 SOLIS DE LEON RAILWAY SIGNALLING ENGINEER Ot Z79.899 OTHER FPC (CURRENT) DRUG THERAPY 11/18/2017 SOLIS DE LEON RAILWAY SIGNALLING ENGINEER Ot Z85.820 PERSONAL HISTORY OF MALIGNANT MELANOMA O 11/18/2017 FAVIOLA FRIAS DO Ot J44.9 CHRONIC OBSTRUCTIVE PULMONARY DISEASE, U 11/18/2017 FAVIOLA FRIAS DO Ot R06.02 SHORTNESS OF BREATH 11/18/2017 FAVIOLA FRIAS DO Ot R06.2 WHEEZING 11/18/2017 TODD WELLS, Boris CAMPOS Ot I35.0 NONRHEUMATIC AORTIC (VALVE) STENOSIS 11/18/2017 Boris BROOKS MD Ot I35.1 NONRHEUMATIC AORTIC (VALVE) INSUFFICIENC 11/18/2017 Boris BROOKS MD Ot I42.9 CARDIOMYOPATHY, UNSPECIFIED 11/18/2017 Boris BROOKS MD Ot I50.22 CHRONIC SYSTOLIC (CONGESTIVE) HEART FAIL 11/18/2017 Boris BROOKS MD Ot Z48.812 ENCNTR FOR SURGICAL AFTCR FOLLOWING SURG 11/18/2017 Boris BROOKS MD Ot Z95.2 PRESENCE OF PROSTHETIC HEART VALVE 11/18/2017 BI CONDE Ot Z08 ENCNTR FOR FOLLOW-UP EXAM AFTER TRTMT FO 11/18/2017 BI CONDE Ot Z79.899 OTHER PROFESSOR OF POLITICAL SCIENCE (CURRENT) DRUG THERAPY 11/18/2017 BI CONDE Ot Z85.820 PERSONAL HISTORY OF MALIGNANT MELANOMA O 11/18/2017 Boris BROOKS MD Ot Z48.812 ENCNTR FOR SURGICAL AFTCR FOLLOWING SURG 11/18/2017 Boris BROOKS MD Ot Z95.2 PRESENCE OF PROSTHETIC HEART VALVE 11/18/2017 Boris BROOKS MD Ot Z48.812 ENCNTR FOR SURGICAL AFTCR FOLLOWING SURG 11/18/2017 Boris BROOKS MD Ot Z95.2 PRESENCE OF PROSTHETIC HEART VALVE 11/20/2017 Boris BROOKS MD Ot I35.0 NONRHEUMATIC AORTIC (VALVE) STENOSIS 11/20/2017 Boris BROOKS MD Ot I35.1 NONRHEUMATIC AORTIC (VALVE) INSUFFICIENC 11/20/2017 Boris BROOKS MD Ot I42.9 CARDIOMYOPATHY, UNSPECIFIED 11/20/2017 Boris BROOKS MD Ot I50.22 CHRONIC SYSTOLIC (CONGESTIVE) HEART FAIL 12/03/2017 Ot E66.9 OBESITY, UNSPECIFIED 12/03/2017 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 12/03/2017 Ot I11.0 HYPERTENSIVE HEART DISEASE WITH HEART FA 12/03/2017 Ot I25.10 ATHSCL HEART DISEASE OF [place] CORONARY 12/03/2017 Ot I42.9 CARDIOMYOPATHY, UNSPECIFIED 12/03/2017 Ot I50.9 HEART FAILURE , UNSPECIFIED 12/03/2017 Ot I70.0 ATHEROSCLEROSIS OF AORTA 12/03/2017 Ot I70.213 ATHSCL [place] ARTERIES OF EXTRM W INTRMT 12/03/2017 Ot I70.92 CHRONIC TOTAL OCCLUSION OF ARTERY OF THE 12/03/2017 Ot Z68.30 BODY MASS INDEX (BMI) 30.0-30.9, ADULT 12/03/2017 Ot Z79.4 PROFESSOR OF POLITICAL SCIENCE ( CURRENT) USE OF INSULIN 12/03/2017 Ot Z79.82 PROFESSOR OF POLITICAL SCIENCE ( CURRENT) USE OF ASPIRIN 12/03/2017 Ot Z79.899 OTHER PROFESSOR OF POLITICAL SCIENCE (CURRENT) DRUG THERAPY 01/01/2018 Boris BROOKS MD Ot Z48.812 ENCNTR FOR SURGICAL AFTCR FOLLOWING SURG 01/01/2018 Boris BROOKS MD Ot Z95.2 PRESENCE OF PROSTHETIC HEART VALVE 01/17/2018 BI CONDE Ot 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 01/17/2018 BI CONDE Ot 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 01/17/2018 AMAYA, BOBAN N Ot V58.69 OTH MED,LT,CURRENT USE 01/17/2018 BI CONDE Ot V67.09 SURGERY FOLLOW-UP, OTHER SURGERY 01/17/2018 BI CONDE Ot 172.9 MALIG MELANOMA SKIN NOS 01/17/2018 BI CONDE Ot 794.8 ABN LIVER FUNCTION STUDY 01/17/2018 DE LEONSOLIS Jiang RAILWAY SIGNALLING ENGINEER Ot 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 01/17/2018 DE LEONAUDIIRMA S RAILWAY SIGNALLING ENGINEER Ot 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 01/17/2018 SOLIS DE LEON S RAILWAY SIGNALLING ENGINEER Ot V58.69 OTH MED,LT,CURRENT USE 01/17/2018 DE LEONSOLIS Jiang RAILWAY SIGNALLING ENGINEER Ot V67.09 SURGERY FOLLOW-UP, OTHER SURGERY 02/02/2018 Boris BROOKS MD Ot Z48.812 ENCNTR FOR SURGICAL AFTCR FOLLOWING SURG 02/02/2018 Boris BROOKS MD Ot Z95.2 PRESENCE OF PROSTHETIC HEART VALVE 02/03/2018 Boris BROOKS MD Ot Z29.8 ENCOUNTER FOR OTHER SPECIFIED PROPHYLACT 02/03/2018 Boris BROOKS MD Ot Z48.812 ENCNTR FOR SURGICAL AFTCR FOLLOWING SURG 02/03/2018 Boris BROOKS MD Ot Z95.2 PRESENCE OF PROSTHETIC HEART VALVE 03/05/2018 Boris BROOKS MD Ot Z48.812 ENCNTR FOR SURGICAL AFTCR FOLLOWING SURG 03/05/2018 Boris BROOKS MD Ot Z95.2 PRESENCE OF PROSTHETIC HEART VALVE 03/06/2018 Boris BROOKS MD Ot Z29.8 ENCOUNTER FOR OTHER SPECIFIED PROPHYLACT 03/06/2018 Boris BROOKS MD Ot Z48.812 ENCNTR FOR SURGICAL AFTCR FOLLOWING SURG 03/06/2018 Boris BROOKS MD Ot Z95.2 PRESENCE OF PROSTHETIC HEART VALVE 04/06/2018 Boris BROOKS MD Ot Z48.812 ENCNTR FOR SURGICAL AFTCR FOLLOWING SURG 04/06/2018 Boris BROOKS MD Ot Z95.2 PRESENCE OF PROSTHETIC HEART VALVE Procedures Code Description Performed By Performed On [...] 103 mmol/L 98-107 Carbon dioxide 21 mmol/L -32 Serum or plasma anion gap determination (moles/volume) [...] measurement by glucometer (mass/volume) 81 mg/dL 70-110 Capillary blood glucose measurement by glucometer (mass/volume) - 06/09/17 06: 12 Capillary blood glucose measurement by glucometer (mass/volume) 112 mg/dL 70-110 Whole blood basic metabolic panel - 06/09/17 08:35 Serum or plasma sodium measurement (moles/volume) 135 mmol/L 135-145 Serum or plasma potassium measurement (moles/volume) 3.6 mmol/L 3.6-5.0 Serum or plasma chloride measurement (moles/volume) 99 mmol/L 98-107 Carbon dioxide 22 mmol/L 21-32 Serum or plasma anion gap determination (moles/volume) 14 mmol/L 5-14 Serum or plasma urea nitrogen measurement (mass/volume) 28 mg/dL 7-18 Serum or plasma creatinine measurement (mass/volume) 1.08 mg/dL 0.60-1.30 Serum or plasma urea nitrogen/creatinine mass ratio 26 NRG Serum or plasma creatinine measurement with calculation of estimated glomerular filtration rate > NRG Serum or plasma glucose measurement (mass/volume) 192 mg/dL 70-105 Serum or plasma calcium measurement (mass/volume) 9.5 mg/dL 8.5-10.1 Capillary blood glucose measurement by glucometer (mass/volume) - 06/09/17 10: 56 Capillary blood glucose measurement by glucometer (mass/volume) 131 mg/dL 70-110 Automated blood complete blood count (hemogram) panel - 06/13/17 07:50 Blood leukocytes automated count (number/volume) 7.8 10*3/uL 4.3-11.0 Blood erythrocytes automated count (number/volume) 4.95 10*6/uL 4.35-5.85 Venous blood hemoglobin measurement (mass/volume) 15.0 g/dL 13.3-17.7 Blood hematocrit (volume fraction) 43 % 40-54 Automated erythrocyte mean corpuscular volume 87 [foz_us] 80-99 Automated erythrocyte mean corpuscular hemoglobin (mass per erythrocyte) 30 pg 25-34 Automated erythrocyte mean corpuscular hemoglobin concentration measurement ( mass/volume) 35 g/dL 32-36 Automated erythrocyte distribution width ratio 13.6 % 10.0-14.5 Automated blood platelet count (count/volume) 215 10*3/uL 130-400 Automated blood platelet mean volume measurement 9.6 [foz_us] 7.4-10.4 PT panel in platelet poor plasma by coagulation assay - 06/13/17 07:50 Prothrombin time (PT) in platelet poor plasma by coagulation assay 13.9 s 12.2-14.7 INR in platelet poor plasma or blood by coagulation assay 1.1 0.8-1.4 Activated partial thromboplastin time (aPTT) in platelet poor plasma bycoagulation assay - 06/13/17 07:50 Activated partial thromboplastin time (aPTT) in platelet poor plasma bycoagulation assay 29 s 24-35 Comprehensive metabolic panel - 06/13/17 07:50 Serum or plasma sodium measurement (moles/volume) 130 mmol/L 135-145 Serum or plasma potassium measurement (moles/volume) 5.2 mmol/L 3.6-5.0 Serum or plasma chloride measurement (moles/volume) 96 mmol/L 98-107 Carbon dioxide 21 mmol/L 21-32 Serum or plasma anion gap determination (moles/volume) 13 mmol/L 5-14 Serum or plasma urea nitrogen measurement (mass/volume) 30 mg/dL 7-18 Serum or plasma creatinine measurement (mass/volume) 1.30 mg/dL 0.60-1.30 Serum or plasma urea nitrogen/creatinine mass ratio 23 NRG Serum or plasma creatinine measurement with calculation of estimated glomerular filtration rate 53 NRG Serum or plasma glucose measurement (mass/volume) 184 mg/dL 70-105 Serum or plasma calcium measurement (mass/volume) 10.2 mg/dL 8.5-10.1 Serum or plasma total bilirubin measurement (mass/volume) 1.2 mg/dL 0.1-1.0 Serum or plasma alkaline phosphatase measurement (enzymatic activity/volume) 99 U/L 40-136 Serum or plasma aspartate aminotransferase measurement (enzymatic activity/ volume) 18 U/L 5-34 Serum or plasma alanine aminotransferase measurement (enzymatic activity/volume ) 15 U/L 0-55 Serum or plasma protein measurement (mass/volume) 8.2 g/dL 6.4-8.2 Serum or plasma albumin measurement (mass/volume) 4.3 g/dL 3.2-4.5 Methicillin resistant Staphylococcus aureus (MRSA) screening culture - 07:50 MRSA SCREEN RESULT MRSA ISOLATED NRG Arterial blood oxygen saturation measurement - 06/13/17 10:22 Arterial blood oxygen saturation measurement 64 % 94-100 Arterial blood oxygen saturation measurement - 06/13/17 11:19 Arterial blood oxygen saturation measurement 57 % 94-100 Arterial blood oxygen saturation measurement - 06/13/17 11:22 Arterial blood oxygen saturation measurement 97 % 94-100 Automated blood complete blood count (hemogram) panel - 12/03/17 07:10 Blood leukocytes automated count (number/volume) 7.1 10*3/uL 4.3-11.0 Blood erythrocytes automated count (number/volume) 4.59 10*6/uL 4.35-5.85 Venous blood hemoglobin measurement (mass/volume) 14.6 g/dL 13.3-17.7 Blood hematocrit (volume fraction) 43 % 40-54 Automated erythrocyte mean corpuscular volume 94 [foz_us] 80-99 Automated erythrocyte mean corpuscular hemoglobin (mass per erythrocyte) 32 pg 25-34 Automated erythrocyte mean corpuscular hemoglobin concentration measurement ( mass/volume) 34 g/dL 32-36 Automated erythrocyte distribution width ratio 12.8 % 10.0-14.5 Automated blood platelet count (count/volume) 173 10*3/uL 130-400 Automated blood platelet mean volume measurement 9.8 [foz_us] 7.4-10.4 PT panel in platelet poor plasma by coagulation assay - 12/03/17 07:10 Prothrombin time (PT) in platelet poor plasma by coagulation assay 12.9 s 12.2-14.7 INR in platelet poor plasma or blood by coagulation assay 1.0 0.8-1.4 Activated partial thromboplastin time (aPTT) in platelet poor plasma bycoagulation assay - 12/03/17 07:10 Activated partial thromboplastin time (aPTT) in platelet poor plasma bycoagulation assay 28 s 24-35 Comprehensive metabolic panel - 12/03/17 07:10 Serum or plasma sodium measurement (moles/volume) 138 mmol/L 135-145 Serum or plasma potassium measurement (moles/volume) 4.5 mmol/L 3.6-5.0 Serum or plasma chloride measurement (moles/volume) 104 mmol/L 98-107 Carbon dioxide 22 mmol/L 21-32 Serum or plasma anion gap determination (moles/volume) 12 mmol/L 5-14 Serum or plasma urea nitrogen measurement (mass/volume) 22 mg/dL 7-18 Serum or plasma creatinine measurement (mass/volume) 1.14 mg/dL 0.60-1.30 Serum or plasma urea nitrogen/creatinine mass ratio 19 NRG Serum or plasma creatinine measurement with calculation of estimated glomerular filtration rate > NRG Serum or plasma glucose measurement (mass/volume) 144 mg/dL 70-105 Serum or plasma calcium measurement (mass/volume) 9.9 mg/dL 8.5-10.1 Serum or plasma total bilirubin measurement (mass/volume) 0.6 mg/dL 0.1-1.0 Serum or plasma alkaline phosphatase measurement (enzymatic activity/volume) 84 U/L 40-136 Serum or plasma aspartate aminotransferase measurement (enzymatic activity/ volume) 21 U/L 5-34 Serum or plasma alanine aminotransferase measurement (enzymatic activity/volume ) 19 U/L 0-55 Serum or plasma protein measurement (mass/volume) 7.9 g/dL 6.4-8.2 Serum or plasma albumin measurement (mass/volume) 4.5 g/dL 3.2-4.5 Methicillin resistant Staphylococcus aureus (MRSA) screening culture - 07:10 Methicillin resistant Staphylococcus aureus (MRSA) screening culture NEG NRG Encounters ACCT No. Visit Date/Time Discharge Status Pt. Type Provider Facility Loc./Unit Complaint [id number] 04/18/2018 07:10:00 04/18/2018 23:59:59 CLS Outpatient Boris BROOKS MD [facility] CR3 TAVR [id number] 03/17/2018 06:22:00 04/06/2018 00:01:00 DIS Outpatient Boris BROOKS MD [facility] CR3 TAVR [id number] 03/05/2018 07:33:00 03/05/2018 00:01:00 DIS Outpatient [facility] [facility] TAVR [id number] 01/31/2018 07:33:00 02/02/2018 00:01:00 DIS Outpatient Boris BROOKS MD Via [facility] CR3 TAVR [id number] 01/01/2018 06:43:00 01/01/2018 00:01:00 DIS Outpatient Boris BROOKS MD [facility] CR3 TAVR [id number] 11/25/2017 08:08:00 11/25/2017 23:59:59 CLS Outpatient Boris BROOKS MD [facility] TAVR [id number] 11/18/2017 00:08:00 11/18/2017 23:59:59 CLS Preadmit BI CONDE [facility] ONC [id number] 08/19/2017 08:42:00 11/17/2017 00:01:00 DIS Outpatient BI CONDE [facility] ONC [id number] 10/24/2017 08:49:00 10/24/2017 23:59:59 CLS Outpatient Boris BROOKS MD [facility] CARD I35.1 AORTIC INSUFFICIENCY [id number] 06/13/2017 07:27:00 06/13/2017 17:45:00 DIS Outpatient Boris BROOKS MD [facility] CATH SOB,CAD,CHF [id number] 06/06/2017 08:30:00 06/09/2017 13:35:00 DIS Inpatient FRIAS DO, FAVIOLA [facility] 4TH CHF [id number] 06/05/2017 07:15:00 06/05/2017 23:59:59 CLS Outpatient FRIAS DO, FAVIOLA [facility] RT WHEEZING [id number] 01/02/2017 10:00:00 01/02/2017 23:59:59 CLS Outpatient FRIAS DO, FAVIOLA [facility] RT J44.9,R06.02 [id number] 08/20/2016 08:24:00 11/18/2016 00:01:00 DIS Outpatient BI CONDE [facility] ONC [id number] 08/22/2015 08:56:00 08/22/2015 23:59:59 CLS Outpatient SOLIS DE LEON [employer]INE[employer] [facility] ONC [id number] 02/16/2015 08:37:00 02/16/2015 23:59:59 CLS Outpatient BI CONDE 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 ONC [id number] 04/15/2014 14:58:00 04/15/2014 23:59:59 CLS Outpatient AMAYABI N [facility] RAD DIZZINESS,MALIGNANT MELANOMA [id number] 04/14/2014 10:34:00 04/14/2014 23:59:59 CLS Outpatient AMAYABI SCHULER N [facility] ONC [id number] 07/20/2013 18:00:00 09/30/2013 00:01:00 DIS Outpatient FRIAS DO, FAVIOLA [facility] DSME DIABETES [id number] 04/13/2013 07:46:00 04/13/2013 23:59:59 CLS Outpatient FRIAS DO, FAVIOLA 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 ONC [id number] 04/03/2013 12:37:00 04/04/2013 14:20:00 DIS Inpatient FRIAS DO, FAVIOLA [facility] CSD AMS R SIDED FACIAL DROOP [id number] 10/24/2012 08:15:00 01/22/2013 00:01:00 DIS Outpatient BI CONDE [facility] ONC [id number] 10/28/2012 07:10:00 10/28/2012 23:59:59 CLS Outpatient BI CONDE N [facility] RAD MELANOMA,ELEVATED LFT [id number] 10/09/2012 01:35:00 10/09/2012 23:59:59 CLS Outpatient BI CONDE [facility] ONC [id number] 04/16/2018 15:14:00 Document Registration [id number] 12/03/2017 07:37:00 Document Registration [id number] 10/01/2013 15:00:00 Document Registration [id number] 04/03/2012 12:22:00 Document Registration [id number] 10/04/2011 09:54:00 Document Registration [id number] 04/04/2011 09:23:00 Document Registration [id number] 02/06/2011 10:28:00 Document Registration [id number] 10/10/2010 07:53:00 Document Registration [id number] 10/04/2010 09:48:00 Document Registration [id number] 04/04/2010 08:44:00 Document Registration [id number] 10/05/2009 11:35:00 Document Registration [id number] 10/13/2014 09:13:47 ACT Document Registration
[2018-05-01] MEDS: NS IV 1000 ML 1,000 ML IV SCH (16:44)
[2018-05-01 16:46] LABS: BASOPHILS % (AUTO) 0 % (0-10); EOSINOPHILS # (AUTO) 0.6 10^3/uL (0.0-0.3); EOSINOPHILS % (AUTO) 10 % (0-10); HEMATOCRIT 41 % (40-54); HEMOGLOBIN 13.7 G/DL (13.3-17.7); LYMPHOCYTES # (AUTO) 1.7 X 10^3 (1.0-4.0); LYMPHOCYTES % (AUTO) 31 % (12-44); MEAN CORPUSCULAR HEMOGLOBIN 31 PG (25-34); MEAN CORPUSCULAR HGB CONC 34 G/DL (32-36); MEAN CORPUSCULAR VOLUME 92 FL (80-99); MONOCYTES # (AUTO) 0.6 X 10^3 (0.0-1.0); MONOCYTES % (AUTO) 11 % (0-12); NEUTROPHILS # (AUTO) 2.6 X 10^3 (1.8-7.8); NEUTROPHILS % (AUTO) 48 % (42-75); PLATELET COUNT 124 10^3/uL (130-400); RED BLOOD COUNT 4.46 10^6/uL (4.35-5.85); WHITE BLOOD COUNT 5.4 10^3/uL (4.3-11.0)
[2018-05-01] MEDS: inSUlin ASPART (NovoLOG) 1 UNIT/0.01 ML (CHARGE PER UNIT) SC SCH ×2 (16:51→20:40)
[2018-05-01 17:03] LABS: ALANINE AMINOTRANSFERASE 22 U/L (0-55); ALBUMIN 4.2 GM/DL (3.2-4.5); ALKALINE PHOSPHATASE 120 U/L (40-136); BILIRUBIN,TOTAL 0.5 MG/DL (0.1-1.0); BUN/CREATININE RATIO 14; CALCIUM 9.3 MG/DL (8.5-10.1); CARBON DIOXIDE 22 MMOL/L (21-32); CHLORIDE 103 MMOL/L (98-107); GFR ESTIMATED > 60; GLUCOSE 234 MG/DL (70-105); POTASSIUM 4.3 MMOL/L (3.6-5.0); SODIUM 135 MMOL/L (135-145); TOTAL PROTEIN 7.3 GM/DL (6.4-8.2)
[2018-05-01 17:15] VITALS: BP 169/83
[2018-05-01] MEDS ORDERED: RT-ALBUTEROL/IPRATROPIUM 3 ML (DUONEB) VIAL INH PRN (17:30)
[2018-05-01] MEDS: methylPREDNISolone 40 MG/ML (Solu-MEDROL) VIAL IV SCH ×2 (17:57→23:36)
[2018-05-01] MEDS ORDERED: FLU QUADRIvalent (5+ YOA) 2018-2019 (AFLURIA) 0.5 ML IM ONE (18:00)
--- NOTE | 2018-05-01 18:03 | Diagnostic Imaging Report ---
INDICATION: Wheezing. TECHNIQUE: Two-view chest at 05:23 p.m. CORRELATION STUDY: 06/06/2017. FINDINGS: Heart size and mediastinum are relatively stable with presence of apparent new aortic valve prosthesis. Vascularity is only slightly prominent on follow-up. Overt failure does not appear to be suggested. Chronic-appearing change about the lung parenchyma. There is very small nodule suggested about both lung bases likely reflecting prominent nipple shadows as opposed to pulmonary nodules. [place] screw in left humeral head. IMPRESSION: 1. Cardiac enlargement relatively stable. Vascularity only slightly prominent currently without evidence of overt failure. Dictated by: Dictated on workstation # [id number]
[2018-05-01] MEDS ORDERED: RT-ALBUTEROL SULF 2.5 MG/3 ML PRE-MIX VIAL ONE (19:04)
--- NOTE | 2018-05-01 19:56 | Progress Note-Hospitalist ---
Progress Note This is an 83-year-old white male clinic patient of [facility] for many years with a past medical history of valvular heart disease status post replacement earlier this year, diabetes mellitus insulin-dependent, claudication due to severe peripheral vascular disease and asthma-like condition during upper respiratory illnesses who presented to my clinic as an urgent appointment due to wheezing and cough for the past 3 weeks. He reports a low-grade fever at times but the cough is become so difficult to manage any coughs constantly that he is unable to manage at home. Patient is found to have bilateral wheezing though vital signs remained stable and patient was agreeable for admission to the hospital for observation for close monitoring and definitive care. FAVIOLA FRIAS DO May 01, 2018 19:56
[2018-05-01 20:09] VITALS: BP 145/71
[2018-05-01] MEDS: BENZONATATE 100 MG (TESSALON) CAPSULE PO SCH (20:40)
[2018-05-01] MEDS ORDERED: inSUlin DETERMIR 1 UNIT/0.01 ML (LEVEMIR) CHARGE PER UNIT SQ SCH (21:00)
[2018-05-01 23:12] VITALS: BP 163/76
[2018-05-02] MEDS: RT-ALBUTEROL/IPRATROPIUM 3 ML (DUONEB) VIAL INH SCH (02:47)
[2018-05-02] MEDS ORDERED: RT-ALBUTEROL SULF 2.5 MG/3 ML PRE-MIX VIAL INH PRN ×2 (03:30→10:00)
[2018-05-02 04:30] VITALS: BP 148/63
[2018-05-02] MEDS: NS IV 1000 ML 1,000 ML IV SCH ×2 (05:35→09:05)
[2018-05-02] MEDS: methylPREDNISolone 40 MG/ML (Solu-MEDROL) VIAL IV SCH (05:35)
[2018-05-02] MEDS: inSUlin ASPART (NovoLOG) 1 UNIT/0.01 ML (CHARGE PER UNIT) SC SCH (06:00)
[2018-05-02 06:04] LABS: BASOPHILS % (AUTO) 0 % (0-10); EOSINOPHILS % (AUTO) 0 % (0-10); HEMATOCRIT 41 % (40-54); HEMOGLOBIN 13.9 G/DL (13.3-17.7); LYMPHOCYTES # (AUTO) 0.5 X 10^3 (1.0-4.0); LYMPHOCYTES % (AUTO) 13 % (12-44); MEAN CORPUSCULAR HEMOGLOBIN 31 PG (25-34); MEAN CORPUSCULAR HGB CONC 34 G/DL (32-36); MEAN CORPUSCULAR VOLUME 89 FL (80-99); MONOCYTES # (AUTO) 0.1 X 10^3 (0.0-1.0); MONOCYTES % (AUTO) 3 % (0-12); NEUTROPHILS % (AUTO) 85 % (42-75); PLATELET COUNT 140 10^3/uL (130-400); RED BLOOD COUNT 4.54 10^6/uL (4.35-5.85); RED CELL DISTRIBUTION WIDTH 12.9 % (10.0-14.5); WHITE BLOOD COUNT 3.6 10^3/uL (4.3-11.0)
[2018-05-02 06:37] LABS: ALANINE AMINOTRANSFERASE 19 U/L (0-55); ALBUMIN 4.2 GM/DL (3.2-4.5); ALKALINE PHOSPHATASE 98 U/L (40-136); BILIRUBIN,TOTAL 0.5 MG/DL (0.1-1.0); BUN/CREATININE RATIO 15; CALCIUM 9.5 MG/DL (8.5-10.1); CARBON DIOXIDE 20 MMOL/L (21-32); CHLORIDE 103 MMOL/L (98-107); CREATININE SERUM 0.98 MG/DL (0.60-1.30); GFR ESTIMATED > 60; GLUCOSE 276 MG/DL (70-105); SODIUM 136 MMOL/L (135-145); TOTAL PROTEIN 7.4 GM/DL (6.4-8.2)
[2018-05-02 08:00] VITALS: BP 142/78
[2018-05-02] MEDS: BENZONATATE 100 MG (TESSALON) CAPSULE PO SCH (08:37)
[2018-05-02] MEDS ORDERED: CARV3.122 PO (08:57)
[2018-05-02] MEDS ORDERED: CLOP75TA69 PO (08:57)
--- NOTE | 2018-05-02 08:57 | NUR ---
SPOKE WITH THE PATIENT ABOUT HIS MEDICATIONS, HE STATES HE DAUGHTER DARWIN SETS UP HIS MEDS IN A PILL TRY ON [facility] FOR HIM. I CALLED AND SPOKE WITH HER, SHE STATES THE LIST HE HAS IN HIS WALLET IS UP TO DATE. I COMPARED THAT LIST WITH THE EXT MED HX AND THE PRESCRIPTION MEDICATIONS MATCHED WITH THE EXCEPTION OF THE INSULIN AND INHALER BUT HE MAY RECEIVE SAMPLES. OTC MEDS INCLUDE: ASPIRIN 81MG DAILY CALCIUM +D DAILY MTV DAILY FISH OIL DAILY PATIENTS LIST ALSO STATES NITRO NEEDED.
[2018-05-02] MEDS ORDERED: AZITHROMYCIN 250 MG TAB (ZITHROMAX) PO SCH (09:00)
[2018-05-02] MEDS ORDERED: RT-ALBUTEROL SULF 2.5 MG/3 ML PRE-MIX VIAL INH SCH (09:00)
[2018-05-02] MEDS ORDERED: PRED10TA22 PO (09:54)
[2018-05-02] MEDS ORDERED: ALBU2.5V4 INH (09:54)
[2018-05-02] MEDS ORDERED: Guaifenesin/Codeine PO (09:54)
[2018-05-02] MEDS ORDERED: BENZ100C18 PO (09:54)
[2018-05-02] MEDS ORDERED: CEFD300C3 PO (09:54)
--- NOTE | 2018-05-02 09:57 | Short Stay Summary-Hospitalist ---
History of Present Illness HPI/Chief Complaint CC: Wheezing HPI: This is an 83-year-old white male who presented to my clinic as an urgent appointment for cough that had worsened the last 23 weeks. He reports that is very productive and he is wheezing and attempting difficulty with shortness of breath. He was placed in the hospital on pneumonia protocol the chest x-ray revealed no infiltrate but he was given low-dose IV steroids along with empiric IV antibiotics in addition to nebulizer treatments and oxygen supplementation. Considering all labs remained normal patient had improved and cough had nearly resolved he was sent home with new medication and close follow-up with me. Source: patient, family, RN/MD Exam Limitations: no limitations Date Seen 05/02/18 Time Seen by a Provider: 10:00 Attending Physician Tanvi Maxwell DO PCP Tanvi Maxwell DO Referring Physician Date of Admission May 01, 2018 at 15:44 Home Medications & Allergies Home Medications Reviewed patient Home Medication Reconciliation performed by pharmacy medication reconciliations truck technician and/or nursing. Patients Allergies have been reviewed. Allergies Allergies Coded Allergies No Known Drug Allergies (Unverified06/06/17) Past Ykxdjtj-Rrvdds-Megwlg Hx Past Med/Social Hx: Reviewed Nursing Past Med/Soc Hx, Reviewed and Corrections made Patient Social History Marrital Status: Employed/Student: retired Alcohol Use: Occasionally Uses Number of Drinks Today: AA Alcohol Beverage of Choice: Beer Recreational Drug Use: No Smoking Status: Former Smoker Former Smoker, Quit: Dec 03, 1982 Physical Abuse Screen: No Sexual Abuse: No Recent Foreign Travel: No Contact w/other who traveled: No Recent Hopitalizations: Yes Recent Infectious Disease Expo: No Immunizations Up To Date Pediatric: Yes Seasonal Allergies Seasonal Allergies: No Past Medical History Surgeries: Cardiac (aortic valve replacement) Respiratory: COPD Currently Using CPAP: No Currently Using BIPAP: No Cardiac: Angina, Chronic Edema/Swelling, Coronary Artery Disease, Heart Attack , High Cholesterol, Hypertension, Valvular Heart Disease Neurological: Dementia, Neuropathy Reproductive: No Sexually Transmitted Disease: No HIV/AIDS: No Musculoskeletal: Gout Endocrine: Diabetes, Insulin dep Are Your Blood Sugars Over 250: No HEENT: Cataract Loss of Vision: Denies Hearing Impairment: Hard of Hearing Cancer: Skin, Melanoma Did You Recieve Any Treatments: No Psychosocial: Sleep Difficulties History of Blood Disorders: No Adverse Reaction to Blood [place]: No Family History Cancer 09 SISTER, Onset:60 years & older (OVARIAN CANCER) 09 SISTER, Onset:40's - 50 (BREAST CANCER) Chest pain 03 FATHER, Onset:50's - 60 ([place]) Dementia 03 MOTHER, Onset:60 years & older Family history: Alzheimer's disease 03 MOTHER, Onset:60 years & older Family history: Arthritis 03 FATHER, Onset:40's - 50 Family history: Breast disease 09 SISTER, Onset:40's - 50 ( OF BREAST CANCER) Family history: Cardiovascular disease 03 FATHER, Onset:40's - 50 Family history: Hypertension 03 FATHER, Onset:40's - 50 Heart disease 03 FATHER, Onset:40's - 50 Hypercholesterolemia 03 FATHER, Onset:40's - 50 Myocardial infarction 03 FATHER, Onset:40's - 50 Visual impairment 09 SISTER, Onset:40's - 50 No Family History of: Abdominal aortic aneurysm [place]'s disease Alcoholism Aphasia Cancer of colon Cataract Congenital heart disease Congestive heart failure Cystic fibrosis Dysphagia Family history: Allergy Family history: Asthma Family history: Coronary thrombosis Family history: Diabetes mellitus Family history: Gastrointestinal disease Family history: Glaucoma Family history: Osteoporosis Family history: Thyroid disorder Headache Hearing loss Hereditary disease History of - anemia History of - disorder History of - respiratory disease History of drug abuse Human immunodeficiency virus (HIV) seropositivity Infertile Kidney disease Malignant neoplasm of lung Parkinson's disease Prostate cancer Psychotic disorder Seizure disorder Stroke Tuberculosis Heart Disease, Cancer, CAD Under 55 Years Old Review of Systems Constitutional: see HPI EENTM: no symptoms reported Respiratory: cough, dyspnea on exertion, short of breath, wheezing Cardiovascular: no symptoms reported Gastrointestinal: no symptoms reported Genitourinary: no symptoms reported Musculoskeletal: no symptoms reported Skin: no symptoms reported Psychiatric/Neurological: No Symptoms Reported All Other Systems Reviewed Negative Unless Noted: Yes Physical Exam Physical Exam Vital Signs Vital Signs - First Documented Capillary Refill : Height, Weight, BMI Height: 5'10.00" Weight: 215lbs. 0.0oz. 97.609444rg; 30.9 BMI Method:Stated General Appearance: No Apparent Distress, WD/WN, Chronically ill Eyes: Bilateral Eye Normal Inspection, Bilateral Eye PERRL HEENT: PERRL/EOMI, Normal ENT Inspection, Pharynx Normal Neck: Full Range of Motion, Normal Inspection, Non Tender, Supple, Carotid Bruit Respiratory: Chest Non Tender, No Accessory Muscle Use, No Respiratory Distress , Decreased Breath Sounds, Wheezing Cardiovascular: Regular Rate, Rhythm, No Edema, No Gallop, No JVD, No Murmur, Normal Peripheral Pulses Gastrointestinal: Normal Bowel Sounds, No Organomegaly, No Pulsatile Mass, Non Tender, Soft Back: Normal Inspection, No CVA Tenderness, No Vertebral Tenderness Extremity: Normal Capillary Refill, Normal Inspection, Normal Range of Motion, Non Tender, No Calf Tenderness, No Pedal Edema Neurologic/Psychiatric: Alert, Oriented x3, No Motor/Sensory Deficits, Normal Mood/Affect Skin: Normal Color, Warm/Dry Lymphatic: No Adenopathy Results Results/Procedures Labs Laboratory Tests 05/01/18 16:05 05/02/18 05:15 Patient resulted labs reviewed. Short Stay Diagnosis Discharge Diagnosis-Short Stay Admission Diagnosis Acute bronchitis Acute wheezing Likely a condition when upper respiratory illness occurs Diabetes mellitus Severe claudication nonsurgical candidate Hypertension Hyperlipidemia Previous aortic valve replacement in 2018 Final Discharge Diagnosis Acute bronchitis Acute wheezing Asthma-like condition when upper respiratory illness occurs Diabetes mellitus Severe claudication nonsurgical candidate Hypertension Hyperlipidemia Previous aortic valve replacement in 2018 Conclusion Plan Plan: [facility] Diagnosis/Problems Diagnosis/Problems (1) Bronchitis Status: Acute (2) Wheezing Status: Acute (3) Severe claudication Status: Chronic (4) Insulin dependent diabetes mellitus Status: Chronic (5) Essential (primary) hypertension Status: Chronic (6) CAD (coronary artery disease) Status: Chronic Qualifiers: Qualified Codes: I25.10 - Atherosclerotic heart disease of [place] coronary artery without angina pectoris Clinical Quality Measures DVT/VTE Risk/Contraindication: Risk Factor Score Per Nursin RFS Level Per Nursing on Admit: 4+=Very High TANVI MAXWELL DO May 02, 2018 09:57
[2018-05-02] MEDS ORDERED: NITROGLYCERIN 0.4 MG SL TABS BTL 25'S SL PRN (10:00)
--- NOTE | 2018-05-02 10:36 | Consultation-Cardiology ---
HPI-Cardiology Cardiology Consultation Date of Consultation 05/02/18 Date of Admission Time Seen by Provider: 10:30 Indication: Coronary coronary artery disease, congestive heart failure HPI 83 years old gentleman with history of coronary artery disease, peripheral arterial disease and congestive heart failure was having increasing shortness of breath and wheezing. Admitted for exacerbation of COPD. Denied any chest pain, reporting improvement in his breathing. Denied any palpitation, syncope or near syncopal episode Home Medications & Allergies Allergies: Coded Allergies: No Known Drug Allergies (Unverified , 06/06/17) Home Medication List Reviewed: Yes [id number]-Drmhpo Hx Patient Social History Marital Status: Employed/Student: retired Alcohol Use: Occasionally Uses Recreational Drug Use: No Smoking Status: Former Smoker Recent Foreign Travel: No Recent Infectious Disease Expo: No Recent Hopitalizations: Yes Physical Abuse Screen: No Sexual Abuse: No Past Medical History Past medical history is discussed below Family Medical History Significant Family History: Heart Disease, Cancer, CAD Under 55 Years Old Family History: Cancer 09 SISTER, Onset:60 years & older (OVARIAN CANCER) 09 SISTER, Onset:40's - 50 (BREAST CANCER) Chest pain 03 FATHER, Onset:50's - 60 ([place]) Dementia 03 MOTHER, Onset:60 years & older Family history: Alzheimer's disease 03 MOTHER, Onset:60 years & older Family history: Arthritis 03 FATHER, Onset:40's - 50 Family history: Breast disease 09 SISTER, Onset:40's - 50 ( OF BREAST CANCER) Family history: Cardiovascular disease 03 FATHER, Onset:40's - 50 Family history: Hypertension 03 FATHER, Onset:40's - 50 Heart disease 03 FATHER, Onset:40's - 50 Hypercholesterolemia 03 FATHER, Onset:40's - 50 Myocardial infarction 03 FATHER, Onset:40's - 50 Visual impairment 09 SISTER, Onset:40's - 50 No Family History of: Abdominal aortic aneurysm [place]'s disease Alcoholism Aphasia Cancer of colon Cataract Congenital heart disease Congestive heart failure Cystic fibrosis Dysphagia Family history: Allergy Family history: Asthma Family history: Coronary thrombosis Family history: Diabetes mellitus Family history: Gastrointestinal disease Family history: Glaucoma Family history: Osteoporosis Family history: Thyroid disorder Headache Hearing loss Hereditary disease History of - anemia History of - disorder History of - respiratory disease History of drug abuse Human immunodeficiency virus (HIV) seropositivity Infertile Kidney disease Malignant neoplasm of lung Parkinson's disease Prostate cancer Psychotic disorder Seizure disorder Stroke Tuberculosis Review of Systems Constitutional: see HPI EENTM: see HPI, no symptoms reported Respiratory: see HPI; No cough; dyspnea on exertion; No hemoptysis, No orthopnea, No phlegm, No short of breath, No stridor; wheezing; No other Cardiovascular: see HPI, vascular heart diseas Gastrointestinal: no symptoms reported, see HPI Genitourinary: no symptoms reported, see HPI Musculoskeletal: see HPI, joint pain, muscle cramps, muscle weakness Skin: no symptoms reported, see HPI Psychiatric/Neurological: No Symptoms Reported, See HPI Reviewed Test Results Reviewed Test Results Lab Laboratory Tests Test 05/01/18 16:05 05/01/18 16:12 05/01/18 20:11 05/02/18 05:14 Range/Units White Blood Count 5.4 4.3-11.0 10^3/uL Red Blood Count 4.46 4.35-5.85 10^6/uL Hemoglobin 13.7 13.3-17.7 G/DL Hematocrit 41 40-54 % Mean Corpuscular Volume 92 80-99 FL Mean Corpuscular Hemoglobin 31 25-34 PG Mean Corpuscular Hemoglobin Concent 34 32-36 G/DL Red Cell Distribution Width 13.0 10.0-14.5 % Platelet Count 124 L 130-400 10^3/uL Mean Platelet Volume 10.0 7.4-10.4 FL Neutrophils (%) (Auto) 48 42-75 % Lymphocytes (%) (Auto) 31 12-44 % Monocytes (%) (Auto) 11 0-12 % Eosinophils (%) (Auto) 10 0-10 % Basophils (%) (Auto) 0 0-10 % Neutrophils # (Auto) 2.6 1.8-7.8 X 10^3 Lymphocytes # (Auto) 1.7 1.0-4.0 X 10^3 Monocytes # (Auto) 0.6 0.0-1.0 X 10^3 Eosinophils # (Auto) 0.6 H 0.0-0.3 10^3/uL Basophils # (Auto) 0.0 0.0-0.1 10^3/uL Sodium Level 135 135-145 MMOL/L Potassium Level 4.3 3.6-5.0 MMOL/L Chloride Level 103 98-107 MMOL/L Carbon Dioxide Level 22 21-32 MMOL/L Anion Gap 10 5-14 MMOL/L Blood Urea Nitrogen 15 7-18 MG/DL Creatinine 1.10 0.60-1.30 MG/DL Estimat Glomerular Filtration Rate > 60 BUN/Creatinine Ratio 14 Glucose Level 234 H 70-105 MG/DL Lactic Acid Level 1.35 0.50-2.00 MMOL/L Calcium Level 9.3 8.5-10.1 MG/DL Corrected Calcium 9.1 8.5-10.1 MG/DL Total Bilirubin 0.5 0.1-1.0 MG/DL Aspartate Amino Transf (AST/SGOT) 22 5-34 U/L Alanine Aminotransferase (ALT/SGPT) 22 0-55 U/L Alkaline Phosphatase 120 40-136 U/L Troponin I < 0.028 <0.028 NG/ML B-Type Natriuretic Peptide 82.3 <100.0 PG/ML Total Protein 7.3 6.4-8.2 GM/DL Albumin 4.2 3.2-4.5 GM/DL Glucometer 219 H 246 H 280 H 70-110 MG/DL Test 05/02/18 05:15 Range/Units White Blood Count 3.6 L 4.3-11.0 10^3/uL Red Blood Count 4.54 4.35-5.85 10^6/uL Hemoglobin 13.9 13.3-17.7 G/DL Hematocrit 41 40-54 % Mean Corpuscular Volume 89 80-99 FL Mean Corpuscular Hemoglobin 31 25-34 PG Mean Corpuscular Hemoglobin Concent 34 32-36 G/DL Red Cell Distribution Width 12.9 10.0-14.5 % Platelet Count 140 130-400 10^3/uL Mean Platelet Volume 10.0 7.4-10.4 FL Neutrophils (%) (Auto) 85 H 42-75 % Lymphocytes (%) (Auto) 13 12-44 % Monocytes (%) (Auto) 3 0-12 % Eosinophils (%) (Auto) 0 0-10 % Basophils (%) (Auto) 0 0-10 % Neutrophils # (Auto) 3.0 1.8-7.8 X 10^3 Lymphocytes # (Auto) 0.5 L 1.0-4.0 X 10^3 Monocytes # (Auto) 0.1 0.0-1.0 X 10^3 Eosinophils # (Auto) 0.0 0.0-0.3 10^3/uL Basophils # (Auto) 0.0 0.0-0.1 10^3/uL Sodium Level 136 135-145 MMOL/L Potassium Level 4.0 3.6-5.0 MMOL/L Chloride Level 103 98-107 MMOL/L Carbon Dioxide Level 20 L 21-32 MMOL/L Anion Gap 13 5-14 MMOL/L Blood Urea Nitrogen 15 7-18 MG/DL Creatinine 0.98 0.60-1.30 MG/DL Estimat Glomerular Filtration Rate > 60 BUN/Creatinine Ratio 15 Glucose Level 276 H 70-105 MG/DL Calcium Level 9.5 8.5-10.1 MG/DL Corrected Calcium 9.3 8.5-10.1 MG/DL Total Bilirubin 0.5 0.1-1.0 MG/DL Aspartate Amino Transf (AST/SGOT) 19 5-34 U/L Alanine Aminotransferase (ALT/SGPT) 19 0-55 U/L Alkaline Phosphatase 98 40-136 U/L Total Protein 7.4 6.4-8.2 GM/DL Albumin 4.2 3.2-4.5 GM/DL Physical Exam Vital Signs Vital Signs - First Documented Capillary Refill : Height, Weight, BMI Height: 5'10.00" Weight: 215lbs. 0.0oz. 97.803872dc; 30.9 BMI Method:Stated General Appearance: No Apparent Distress, WD/WN Eyes: Bilateral Eye Normal Inspection, Bilateral Eye PERRL, Bilateral Eye EOMI HEENT: PERRL/EOMI, TMs Normal, Normal ENT Inspection, Pharynx Normal Neck: Full Range of Motion, Normal Inspection, Non Tender, Supple, Carotid Bruit Respiratory: Chest Non Tender, Lungs Clear, Normal Breath Sounds, No Accessory Muscle Use, No Respiratory Distress Cardiovascular: Regular Rate, Rhythm, No Edema, No Gallop, No JVD, Systolic Murmur Gastrointestinal: Normal Bowel Sounds, No Organomegaly, No Pulsatile Mass, Non Tender, Soft Back: Normal Inspection, No CVA Tenderness, No Vertebral Tenderness Extremity: Normal Capillary Refill, Normal Inspection, Normal Range of Motion, Non Tender, No Calf Tenderness, No Pedal Edema Neurologic/Psychiatric: Alert, Oriented x3, No Motor/Sensory Deficits, Normal Mood/Affect Skin: Normal Color, Warm/Dry Lymphatic: No Adenopathy A/P-Cardiology Admission Diagnosis Shortness of breath Coronary artery disease Hypertension Hyperlipidemia Assessment/Plan Shortness of breath, bronchial asthma, still having some wheezing. Reporting improvement. Coronary artery disease, history of intervention in 2017 at to the [facility], had another cardiac catheterization done in June 2017 at [facility] reported moderate coronary artery disease Moderate to severe aortic valve stenosis, followed by Dr. Palafox Peripheral arterial disease, still having claudication, extensive disease, had workup done by Dr. Palafox and followed by Dr. Palafox. Next Hypertension, restart home medication monitor blood pressure Hyperlipidemia, restart home medication monitor lipids Congestive heart failure, chronic compensated left ventricular systolic dysfunction, ejection fraction reported to be 45 percent ischemic cardiomyopathy COPD, followed and managed by primary care physician Clinical Quality Measures DVT/VTE Risk/Contraindication: Risk Factor Score Per Nursin RFS Level Per Nursing on Admit: 4+=Very High JANE WORTHINGTON MD May 02, 2018 10:36
--- NOTE | 2018-05-02 10:46 | Physical Therapy Evaluation ---
PT Evaluation-General Medical Diagnosis Admission Date May 01, 2018 at 15:44 Medical Diagnosis: Wheezing Onset Date: May 01, 2018 Therapy Diagnosis Therapy Diagnosis: debility Height/Weight Height (Feet): 5 Height (Inches): 10.00 Weight (Pounds): 215 Weight (Ounces): 0.0 Precautions Precautions/Isolations: Standard Precautions Referral Physician: Hans Medical History Pertinent Medical History: CAD, DM, Heart Failure, HTN, LA Current History direct admit with wheezing Social History Home: Single Level Current Living Status: Spouse Prior/Core FIM Prior Level of Function Therapy Code Descriptions/Definitions Functional [place] Measure: 0=Not Assessed/NA 4=Minimal Assistance 1=Total Assistance 5=Supervision or Setup 2=Maximal Assistance 6=Modified [place] 3=Moderate Assistance 7=Complete [place] Therapy Quality Codes: 6 Independent with activity with or without an assistive device 5 Patient requires set up or clean up by helper. Patient completes activity by themselves 4 Supervision or touching assist (CGA). Nunda provide cues , steadying assist 3 The helper provides less than half the effort to complete the activity 2 The helper provides more than half the effort to complete the activity 1 Dependent. The helper does all the effort to complete an activity 7 Patient refused to complete or attempt activity 9 The patient did not perform the activity before the current illness or injury 88 Not attempted due to Medical conditions or safety concerns Functional Abilities and Goals: Independent: Patient completed the activities by him/herself, with or without an assistive device, with no assistance from a helper. Needed Some Help: Patient needed partial assistance from another person to complete activities. Dependent: A helper completed the activities for the patient. Unknown: Not Applicable: Bed Mobility: 6 Transfers (B,C,W/C) (FIM): 6 Gait: 6 Indoor Mobility (Ambulation): Independent Stairs: Independent Prior Devices Use: Other-see list below Prior Device Use: single point cane PT Evaluation-Current Subjective Patient agrees to PT. Pain Numeric Pain Scale: 0-No Pain Location: No Pain Reported Objective Patient Orientation: Normal For Age Problem Solving: Fair ROM/Strength ROM Lower Extremities bilateral LE WFL Strength Lower Extremities 4/5 grossly bilaterally Integumentary/Posture Integumentary refer to nursing notes Bowel Incontinence: No Bladder Incontinence: No Posture WFL Neuromuscular (Tone, Coordination, Reflexes) grossly intact Sensory Vision: Functional Hearing: Impaired Sensation Right Lower Extremit: Impaired Sensation Left Lower Extremity: Impaired Transfers Therapy Code Descriptions/Definitions Functional [place] Measure: 0=Not Assessed/NA 4=Minimal Assistance 1=Total Assistance 5=Supervision or Setup 2=Maximal Assistance 6=Modified [place] 3=Moderate Assistance 7=Complete [place] Transfers (B, C, W/C) (FIM): 6 Scootin Rollin Supine to/from Sit: 6 Sit to/from Stand: 6 Gait Mode of Locomotion: Walk Anticipated Mode of Locomotion: Walk Gait (FIM): 6 Distance (FIM): 3=150 ft Distance: 600' Gait Level of Assist: 6 Gait Assistive Device: Cane Single Point Comments/Gait Description WBOS with minimal foot clearance due to neuropathy Balance Sitting Static: Normal Sitting Dynamic: Normal Standing Static: Normal Standing Dynamic: Normal Assessment/Needs 83 y.o .male, is currently at [facility] with all gross motor skills. This PT recommends outpatient PT or wellness program to increase activity and improve overall functional mobility. Patient and family agree. Physician notified of recommendation. Rehab Potential: Fair Post Rehab Potential-Barriers: compliance PT Plan Treatment/Plan Treatment Plan: Discontinue PT, goals met Treatment Plan: Other Treatment Duration: May 09, 2018 Frequency: 1 time per week Estimated Hrs Per Day: .5 hour per day Patient and/or Family Agrees t: Yes Safety Risks/Education Patient Education: Gait Training, Safety Issues Teaching Recipient: Patient, Family Teaching Methods: Demonstration, Discussion Response to Teaching: Verbalize Understanding, Return Demonstration Discharge Recommendations Therapy D/C Recommendations: Home w/ Family Support, Physical Therapy Outpatient Equpiment Recommendations-D/C: Straight Cane, Front Wheeled Walker Time/GCodes Time In: 1006 Time Out: 1022 Total Billed Treatment Time: 13 Total Billed Treatment 1 visit EVModC 16 min G Codes Necessary: Yes PT/OT Therapy GCodes Therapy Functional Limitation: Physical Therapy Test(s)/Tool used to determine: Level of Assistance Scale Functional Limitation-Current Charge Code: MOBCUR Modifier: CI Functional Limitation-Goal Charge Code: MOBGOAL Modifier: CI Functional Limitation-D/C Charge Codes: MOBDC Modifier: CI OSCAR SR PT May 02, 2018 10:46
[2018-05-02] MEDS ORDERED: INSULIN LISPRO 20 UNIT SC SCH (11:00)
[2018-05-02 11:10] VITALS: BP 142/78
[2018-05-02] MEDS ORDERED: NON-FORMULARY MEDICATION 1 EA EA (Carvedilol 3.125 MG) PO SCH (21:00)
[2018-05-02] MEDS ORDERED: NON-FORMULARY MEDICATION 1 EA EA (Cilostazol 100 MG) PO SCH (21:00)
[2018-05-02] MEDS ORDERED: RAMIPRIL 5 MG PO SCH (21:00)
[2018-05-02] MEDS ORDERED: NON-FORMULARY MEDICATION 1 EA EA (Donepezil HCl 10 MG) PO SCH (21:00)
[2018-05-02] MEDS ORDERED: ATORVASTATIN 20 MG (LIPITOR) TABLET PO SCH (21:00)
[2018-05-03] MEDS ORDERED: SPIRONOLACTONE 25 MG (ALDACTONE) TAB PO SCH (09:00)
[2018-05-03] MEDS ORDERED: OMEGA 3 (FISH OIL) 1000 MG CAP PO SCH (09:00)
[2018-05-03] MEDS ORDERED: INSULIN GLARGINE HUM REC ANLOG 35 UNIT SC SCH (09:00)
[2018-05-03] MEDS ORDERED: ASPIRIN E.C. 81 MG (ECOTRIN) TAB PO SCH (09:00)
[2018-05-03] MEDS ORDERED: NON-FORMULARY MEDICATION 1 EA EA (Calcium Carbonate/Vitamin D3 (Calcium 600 + Vit D 200 Ta PO SCH (09:00)
[2018-05-03] MEDS ORDERED: CLOPIDOGREL 75 MG (PLAVIX) TABLET PO SCH (09:00)
[2018-05-03] MEDS ORDERED: [UNRECOGNIZED DRUG - OTHER] SC SCH (09:00)
[2018-05-03] MEDS ORDERED: NON-FORMULARY MEDICATION 1 EA EA (Multivitamin (Daily Multiple Vitamin) 1 TAB) PO SCH (09:00)
[2018-05-03] MEDS ORDERED: FUROSEMIDE 40 MG (LASIX) TAB PO SCH (09:00)
== END 2018-05-02 10:25 | disposition home or self-care (01) ==
LOC: 4TH 15:44 → UNDOADMOB 15:44 → 4TH 15:45 → UNDODISOB 05-02 11:05
PROVIDERS: ADMIT Internal Medicine; ATTEND Internal Medicine
DX: J20.9 Acute bronchitis, unspecified (principal); J44.0 Chronic obstructive pulmonary disease with (acute) lower respiratory infection; I35.0 Nonrheumatic aortic (valve) stenosis; I73.9 Peripheral vascular disease, unspecified; I11.0 Hypertensive heart disease with heart failure; E78.5 Hyperlipidemia, unspecified; I50.22 Chronic systolic (congestive) heart failure; Z87.891 Personal history of nicotine dependence; Z95.2 Presence of prosthetic heart valve; I25.119 Atherosclerotic heart disease of native coronary artery with unspecified angina pectoris; E78.00 Pure hypercholesterolemia, unspecified; F03.90 Unspecified dementia, unspecified severity, without behavioral disturbance, psychotic disturbance, mood disturbance, and anxiety; E11.40 Type 2 diabetes mellitus with diabetic neuropathy, unspecified; Z85.820 Personal history of malignant melanoma of skin
CPT/HCPCS: 36415; 71046; 80053; 82962; 83605; 83880; 84484; 85025; 87040; 87804; 94640; 99211; G0378

== ENCOUNTER 2018-09-26 09:26 | Outpatient (RCR) | payer MEDICARE, BC ==
[~2018-09-26 09:26] MED LIST changes: +ALBU2.5V4 INH; -AMLO10TA6 PO; +AMLO10TA7 PO; +BENZ100C18 PO; +CEFD300C3 PO; +CLOP75TA69 PO; +Guaifenesin/Codeine PO; +PRED10TA22 PO
== END 2018-09-26 14:27 | disposition home or self-care (01) ==
PROVIDERS: ATTEND Orthopaedic Surgery Orthopaedic Surgery of the Spine
DX: M48.061 Spinal stenosis, lumbar region without neurogenic claudication (principal)

== ENCOUNTER → 2019-09-02 | Outpatient (CLI) | payer MEDICARE, BC ==
[2019-09-02 10:00] LABS: BASOPHILS % (AUTO) 0 % (0-10); EOSINOPHILS # (AUTO) 0.7 10^3/uL (0.0-0.3); EOSINOPHILS % (AUTO) 10 % (0-10); HEMATOCRIT 41 % (40-54); HEMOGLOBIN 13.7 G/DL (13.3-17.7); LYMPHOCYTES # (AUTO) 1.9 X 10^3 (1.0-4.0); LYMPHOCYTES % (AUTO) 28 % (12-44); MEAN CORPUSCULAR HEMOGLOBIN 30 PG (25-34); MEAN CORPUSCULAR HGB CONC 33 G/DL (32-36); MEAN CORPUSCULAR VOLUME 91 FL (80-99); MEAN PLATELET VOLUME 9.7 FL (7.4-10.4); MONOCYTES # (AUTO) 0.8 X 10^3 (0.0-1.0); MONOCYTES % (AUTO) 12 % (0-12); NEUTROPHILS # (AUTO) 3.4 X 10^3 (1.8-7.8); NEUTROPHILS % (AUTO) 49 % (42-75); PLATELET COUNT 144 10^3/uL (130-400); RED CELL DISTRIBUTION WIDTH 14.7 % (10.0-14.5); WHITE BLOOD COUNT 6.8 10^3/uL (4.3-11.0)
[2019-09-02 10:17] LABS: BILIRUBIN,TOTAL 0.5 MG/DL (0.1-1.0); CALCIUM 9.7 MG/DL (8.5-10.1); CREATININE SERUM 1.46 MG/DL (0.60-1.30); POTASSIUM 4.2 MMOL/L (3.6-5.0); TOTAL PROTEIN 7.4 GM/DL (6.4-8.2)
== END ==
LOC: ONC 09:48
PROVIDERS: ATTEND Internal Medicine Hematology & Oncology
DX: Z08 Encounter for follow-up examination after completed treatment for malignant neoplasm (principal); Z85.820 Personal history of malignant melanoma of skin; Z79.899 Other long term (current) drug therapy
CPT/HCPCS: 80053; 83615; 85025; 99213

== ENCOUNTER 2020-04-19 10:25 | Inpatient (IN) | payer MEDICARE, BC ==
[~2020-04-19] VITALS: Ht 180 cm; Wt 101.5 kg
[~2020-04-19 10:25] MED LIST changes: +AMLO-251 PO; -AMLO10TA7 PO; +ASPI-1238 PO; -ASPI-983 PO; -CALC-6 PO; +CALC1TAB84 PO
[2020-04-19 11:01] LABS: BASOPHILS % (AUTO) 0 % (0-10); EOSINOPHILS % (AUTO) 0 % (0-10); HEMATOCRIT 44 % (40-54); HEMOGLOBIN 14.6 g/dL (13.3-17.7); LYMPHOCYTES # (AUTO) 1.9 10^3/uL (1.0-4.0); LYMPHOCYTES % (AUTO) 20 % (12-44); MEAN CORPUSCULAR HEMOGLOBIN 30 pg (25-34); MEAN CORPUSCULAR HGB CONC 33 g/dL (32-36); MEAN CORPUSCULAR VOLUME 91 fL (80-99); MEAN PLATELET VOLUME 9.8 fL (9.0-12.2); MONOCYTES # (AUTO) 1.1 10^3/uL (0.0-1.0); MONOCYTES % (AUTO) 12 % (0-12); NEUTROPHILS # (AUTO) 6.3 10^3/uL (1.8-7.8); NEUTROPHILS % (AUTO) 67 % (42-75); PLATELET COUNT 166 10^3/uL (130-400); WHITE BLOOD COUNT 9.3 10^3/uL (4.3-11.0)
--- NOTE | 2020-04-19 11:09 | NUR ---
TO CT PER CART.
[2020-04-19 11:12] LABS: ALBUMIN 3.9 GM/DL (3.2-4.5)
[2020-04-19 11:13] LABS: POTASSIUM 3.9 MMOL/L (3.6-5.0)
[2020-04-19 11:14] LABS: CALCIUM 10.7 MG/DL (8.5-10.1)
[2020-04-19 11:15] LABS: TOTAL PROTEIN 7.6 GM/DL (6.4-8.2)
[2020-04-19 11:17] LABS: BILIRUBIN,TOTAL 1.5 MG/DL (0.1-1.0)
[2020-04-19 11:19] LABS: CREATININE SERUM 1.28 MG/DL (0.60-1.30)
[2020-04-19 11:22] LABS: MAGNESIUM 2.1 MG/DL (1.6-2.4)
--- NOTE | 2020-04-19 11:45 | Diagnostic Imaging Report ---
PROCEDURE: CT lumbar spine without contrast. TECHNIQUE: Multiple contiguous axial images were obtained through the lumbar spine without the use of intravenous contrast. Sagittal and coronal reformations were then performed. Auto Exposure Controls were utilized during the CT exam to meet ALARA standards for radiation dose reduction. INDICATION: Fall with back pain and loss of balance. No relevant comparison. The superior greater than inferior endplate fractures at T12. At its middle 3rd this results in about 20% stature loss. There is underlying bony demineralization fracture lines at this level are lucent. This appears to be acute and there is some mild paraspinal edema and/or hemorrhage. No retropulsion. No involvement of the neural arch. The remaining lumbar statures are normal, no other acute or chronic fracture is found. There are degenerative changes to the discs endplates and facets throughout the lumbar spine. At L4-L5 disc bulge in conjunction with facet arthrosis and thickened ligament flava severely stenose the thecal sac and result in the moderate left and severe right neural foraminal stenosis. At the 5-1 level there is a moderate right and mild left foraminal narrowing. IMPRESSION: Acute predominantly superior endplate T12 fracture without retropulsion results in 20% stature loss at its middle 3rd and there is mild paraspinal hemorrhage or edema. Fracture lines do extend into the posterior one third of this vertebral body. No involvement of the posterior elements or neural arch. The remaining levels nonacute with lower lumbar spondylosis and facet arthrosis resulting in severe stenosis at the L4-L5 level as a chronic finding. Dictated by: Dictated on workstation # [id number]
--- NOTE | 2020-04-19 11:48 | Diagnostic Imaging Report ---
PROCEDURE: CT head and CT cervical spine without contrast. TECHNIQUE: Multiple contiguous axial images were obtained through the brain and cervical spine without the use of intravenous contrast. Sagittal and coronal reformations through the cervical spine were then performed. Auto Exposure Controls were utilized during the CT exam to meet ALARA standards for radiation dose reduction. INDICATION: Multiple falls. Loss of balance. COMPARISON: MRI brain without contrast 04/15/2014. FINDINGS: CT head: Advanced generalized cerebral and cerebellar parenchymal volume loss. Advanced leukoaraiosis. Intracranial vascular calcifications. Stable benign retrocerebellar cyst. No intracranial hemorrhage, mass effect, hydrocephalus or extra-axial fluid collections. No CT evidence of a territorial infarction. Osseous structures are intact. The visualized paranasal sinuses and mastoids are clear. CT cervical spine: Normal alignment. Vertebral body heights are preserved. No fractures. Moderate diffuse degenerative endplate changes. No high-grade spinal canal stenosis is evident on soft tissue windows. Right carotid artery stent. Emphysematous changes in the lung apices. IMPRESSION: No acute intracranial or cervical spine CT findings. Chronic findings as above. Dictated by: Dictated on workstation # [id number]
--- NOTE | 2020-04-19 11:55 | Diagnostic Imaging Report ---
PROCEDURE: CT pelvis without contrast. TECHNIQUE: Multiple contiguous axial images were obtained through the pelvis without the use of intravenous contrast. Sagittal and coronal reformations were performed. Auto Exposure Controls were utilized during the CT exam to meet ALARA standards for radiation dose reduction. INDICATION: Fall on 04/15, now with loss of balance. FINDINGS: There are degenerative changes to the symphysis and SI joints as well as bilateral hips. No joint disruption or diastasis. No pelvic free fluid. No sidewall or intramuscular hematoma. The sacrococcygeal curvature and alignment appear normal. The femoral heads maintain normal sphericity and are directed into the acetabula bilaterally. No avulsion or other fracture pattern. No acute or post traumatic sequelae identified. IMPRESSION: Chronic degenerative changes but no pelvic fracture, free fluid, or hematoma. Dictated by: Dictated on workstation # [id number]
[2020-04-19] MEDS ORDERED: HYDROcodone/APAP 5 MG/325 MG (LORTAB) TAB PO ONE (13:00)
[2020-04-19 13:13] LABS: CLARITY,URINE CLEAR; COLOR,URINE YELLOW; GLUCOSE, URINE (UA) NEGATIVE (NEGATIVE); KETONES,URINE TRACE (NEGATIVE); LEUKOCYTE ESTERASE ,URINE NEGATIVE (NEGATIVE); NITRITE,URINE NEGATIVE (NEGATIVE); PH,URINE 5.5 (5-9); PROTEIN,URINE 2+ (NEGATIVE)
[2020-04-19 13:28] LABS: BACTERIA,URINE TRACE /HPF; BILIRUBIN,URINE 1+ (NEGATIVE); SQUAMOUS EPITHELIAL CELL,UR RARE /HPF
--- NOTE | 2020-04-19 14:02 | ED Fall/Injury ---
General Chief Complaint: Back Problems Stated Complaint: FALL AT HOME Nursing Triage Note: Pt to ED room 6 from [facility]. Pt's family reports pt has had a fall on Sunday 04/15 and again last night. Pt reporting each time he has lost his balance. Pt unsure if he had LOC from fall. Pt now c/o lower back pain, worse when lying flat. Source: patient, family, EMS Exam Limitations: no limitations History of Present Illness Date Seen by Provider: Apr 19, 2020 Time Seen by Provider: 10:26 Initial Comments This 85-year-old gentleman presents to the emergency room via EMS after having a fall in his home late last night. He reports losing his balance and falling backward, striking his head. He is uncertain if he lost consciousness or not. By the time his arrived in the room he was alert. He has some mild dementia and is therefore somewhat of a questionable historian according to his daughter, however, he is alert and oriented at this time. He primarily complains of of pain across his lumbar back, especially with movement. He and family report that he has had multiple falls recently due to disequilibrium. This has been going on for a month or 2 and has been addressed to some extent by his primary care provider. He denies any acute symptoms of infectious illness such as fever, cough, shortness of breath, diarrhea, etc. He has had no known Covid exposures. He denies chest pain. He is noted to be in trigeminy on the monitor. He is diabetic and on insulin therapy. However, he has not been checking his blood sugars during these episodes. Another concern family has is that he is having difficulty with swallowing solids. He does better with applesauce and other thin foods/liquids. Allergies and Home Medications Allergies Coded Allergies: No Known Drug Allergies (Unverified , 06/06/17) Home Medications Aspirin 81 Mg Tablet.dr, 81 MG PO DAILY, (Reported) Atorvastatin Calcium 20 Mg Tablet, 20 MG PO HS, (Reported) Calcium Carbonate/Vitamin D3 1 Each Tablet, 1 TAB PO DAILY, (Reported) Carvedilol 3.125 Mg Tablet, 3.125 MG PO BID, (Reported) Cilostazol 100 Mg Tablet, 100 MG PO BID, (Reported) Furosemide 40 Mg Tablet, 40 MG PO DAILY PRN, (Reported) Insulin Glargine,Hum.rec.anlog 100 Unit/1 Ml Insuln.pen, 35 UNITS SC HS, (Reported) Insulin Lispro 100 Unit/1 Ml Insuln.pen, 20 UNITS SC TIDAC, (Reported) Multivitamin 1 Each Tablet, 1 TAB PO DAILY, (Reported) Sp[place]geon 3 Polyunsat Fatty Acids 1,000 Mg Cap, 1,000 MG PO DAILY, (Reported) Ramipril 5 Mg Capsule, 5 MG PO BID, (Reported) Spironolactone 25 Mg Tablet, 25 MG PO DAILY, (Reported) Patient Home Medication List Home Medication List Reviewed: Yes Review of Systems Review of Systems Constitutional: no symptoms reported Eyes: No Symptoms Reported Ears, Nose, Mouth, Throat: no symptoms reported Respiratory: no symptoms reported Cardiovascular: no symptoms reported Gastrointestinal: no symptoms reported Genitourinary: no symptoms reported Musculoskeletal: see HPI Skin: no symptoms reported Psychiatric/Neurological: See HPI Past Jnjdjhm-Mkulyo-Dpkglh Hx Past Med/Social Hx: Reviewed Nursing Past Med/Soc Hx Patient Social History Alcohol Use: Occasionally Uses Number of Drinks Today: AA Alcohol Beverage of Choice: Beer Recreational Drug Use: No Smoking Status: Former Smoker Former Smoker, Quit: Dec 03, 1982 Recent Foreign Travel: No Contact w/Someone Who Travel: No Recent Infectious Disease Expo: No Recent Hopitalizations: Yes Immunizations Up To Date PED Vaccines UTD: Yes Seasonal Allergies Seasonal Allergies: No Past Medical History Surgeries: Yes (rotator cuff bilat, knee replacement, broken legs bilat, melanomo in ear re) Cardiac, Valve Replacement (TAVR procedure) Respiratory: No Currently Using CPAP: No Currently Using BIPAP: No Cardiac: Yes (Heart failure with ischemic cardiomyopathy) Angina, Chronic Edema/Swelling, Coronary Artery Disease, Heart Attack, High Cholesterol, Hypertension, Peripheral Vascular, Valvular Heart Disease Neurological: Yes Dementia, Neuropathy Reproductive Disorders: No Sexually Transmitted Disease: No HIV/AIDS: No Genitourinary: No Gastrointestinal: No Musculoskeletal: Yes Gout Endocrine: Yes Diabetes, Insulin dep HEENT: Yes Cataract Loss of Vision: Denies Hearing Impairment: Hard of Hearing Cancer: Yes Skin, Melanoma Did You Recieve Any Treatments: No Psychosocial: No Sleep Difficulties Integumentary: Yes (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 ) Blood Disorders: No Adverse Reaction/Blood Tranf: No Family Medical History Cancer 09 SISTER, Onset:60 years & older (OVARIAN CANCER) 09 SISTER, Onset:40's - 50 (BREAST CANCER) Chest pain 03 FATHER, Onset:50's - 60 ([place]) Dementia 03 MOTHER, Onset:60 years & older Family history: Alzheimer's disease 03 MOTHER, Onset:60 years & older Family history: Arthritis 03 FATHER, Onset:40's - 50 Family history: Breast disease 09 SISTER, Onset:40's - 50 ( OF BREAST CANCER) Family history: Cardiovascular disease 03 FATHER, Onset:40's - 50 Family history: Hypertension 03 FATHER, Onset:40's - 50 Heart disease 03 FATHER, Onset:40's - 50 Hypercholesterolemia 03 FATHER, Onset:40's - 50 Myocardial infarction 03 FATHER, Onset:40's - 50 Visual impairment 09 SISTER, Onset:40's - 50 No Family History of: Abdominal aortic aneurysm [place]'s disease Alcoholism Aphasia Cancer of colon Cataract Congenital heart disease Congestive heart failure Cystic fibrosis Dysphagia Family history: Allergy Family history: Asthma Family history: Coronary thrombosis Family history: Diabetes mellitus Family history: Gastrointestinal disease Family history: Glaucoma Family history: Osteoporosis Family history: Thyroid disorder Headache Hearing loss Hereditary disease History of - anemia History of - disorder History of - respiratory disease History of drug abuse Human immunodeficiency virus (HIV) seropositivity Infertile Kidney disease Malignant neoplasm of lung Parkinson's disease Prostate cancer Psychotic disorder Seizure disorder Stroke Tuberculosis Heart Disease, Cancer, CAD Under 55 Years Old Physical Exam Vital Signs Vital Signs - First Documented 04/19/20 10:32 Temp 35.7 Pulse 87 Resp 20 B/P (MAP) 133/103 (113) Pulse Ox 92 O2 Delivery Room Air Capillary Refill : Less Than 3 Seconds Height, Weight, BMI Height: 5'10.00" Weight: 215lbs. 0.0oz. 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, no motor/sensory deficits, alert, normal mood/affect, oriented x 3 (but with mild dementia) Skin: normal color, warm/dry Newcomb Coma Score Best Eye Response: (4) Open Spontaneously Best Verbal Response: (5) Oriented Best Motor Response: (6) Obeys Commands Newcomb Total: 15 Progress/Results/Core Measures Results/Orders Lab Results Laboratory Tests Test 04/19/20 10:35 04/19/20 10:52 04/19/20 13:04 Range/Units Glucometer 120 H 70-110 MG/DL White Blood Count 9.3 4.3-11.0 10^3/uL Red Blood Count 4.83 4.30-5.52 10^6/uL Hemoglobin 14.6 13.3-17.7 g/dL Hematocrit 44 40-54 % Mean Corpuscular Volume 91 80-99 fL Mean Corpuscular Hemoglobin 30 25-34 pg Mean Corpuscular Hemoglobin Concent 33 32-36 g/dL Red Cell Distribution Width 13.1 10.0-14.5 % Platelet Count 166 130-400 10^3/uL Mean Platelet Volume 9.8 9.0-12.2 fL Immature Granulocyte % (Auto) 1 % Neutrophils (%) (Auto) 67 42-75 % Lymphocytes (%) (Auto) 20 12-44 % Monocytes (%) (Auto) 12 0-12 % Eosinophils (%) (Auto) 0 0-10 % Basophils (%) (Auto) 0 0-10 % Neutrophils # (Auto) 6.3 1.8-7.8 10^3/uL Lymphocytes # (Auto) 1.9 1.0-4.0 10^3/uL Monocytes # (Auto) 1.1 H 0.0-1.0 10^3/uL Eosinophils # (Auto) 0.0 0.0-0.3 10^3/uL Basophils # (Auto) 0.0 0.0-0.1 10^3/uL Immature Granulocyte # (Auto) 0.1 0.0-0.1 10^3/uL Sodium Level 135 135-145 MMOL/L Potassium Level 3.9 3.6-5.0 MMOL/L Chloride Level 98 98-107 MMOL/L Carbon Dioxide Level 23 21-32 MMOL/L Anion Gap 14 5-14 MMOL/L Blood Urea Nitrogen 36 H 7-18 MG/DL Creatinine 1.28 0.60-1.30 MG/DL Estimat Glomerular Filtration Rate 53 BUN/Creatinine Ratio 28 Glucose Level 127 H 70-105 MG/DL Calcium Level 10.7 H 8.5-10.1 MG/DL Corrected Calcium 10.8 H 8.5-10.1 MG/DL Magnesium Level 2.1 1.6-2.4 MG/DL Total Bilirubin 1.5 H 0.1-1.0 MG/DL Aspartate Amino Transf (AST/SGOT) 22 5-34 U/L Alanine Aminotransferase (ALT/SGPT) 18 0-55 U/L Alkaline Phosphatase 103 40-136 U/L Troponin I 0.053 H 0.065 H <0.028 NG/ML Total Protein 7.6 6.4-8.2 GM/DL Albumin 3.9 3.2-4.5 GM/DL Urine Color YELLOW Urine Clarity CLEAR Urine pH 5.5 5-9 Urine Specific [place] >=1.030 1.016-1.022 Urine Protein 2+ H NEGATIVE Urine Glucose (UA) NEGATIVE NEGATIVE Urine Ketones TRACE H NEGATIVE Urine Nitrite NEGATIVE NEGATIVE Urine Bilirubin 1+ H NEGATIVE Urine Urobilinogen 1.0 < = 1.0 MG/DL Urine Leukocyte Esterase NEGATIVE NEGATIVE Urine RBC (Auto) NEGATIVE NEGATIVE Urine RBC NONE /HPF Urine WBC NONE /HPF Urine Squamous Epithelial Cells RARE /HPF Urine Crystals NONE /LPF Urine Bacteria TRACE /HPF Urine Casts PRESENT /LPF Urine Hyaline Casts 10-25 H /LPF Urine Mucus NEGATIVE /LPF Urine Culture Indicated NO My Orders Orders - HEATHER PATRICK MD Cbc With Automated Diff (04/19/20 10:37) Comprehensive Metabolic Panel (04/19/20 10:37) Magnesium (04/19/20 10:37) Troponin I (04/19/20 10:37) Ua Culture If Indicated (04/19/20 10:37) Ct Head/Cervical Spine Wo (04/19/20 10:37) Ct Lumbar Spine Wo (04/19/20 10:37) Ed Iv/Invasive Line Start (04/19/20 10:37) Ekg Tracing (04/19/20 10:37) Monitor-Rhythm Ecg Trace Only (04/19/20 10:37) Ct Pelvis Wo (04/19/20 10:37) Troponin I (04/19/20 13:00) Hydrocodone/Apap 5/325 Tablet (Lortab 5 (04/19/20 13:00) Medications Given in ED Current Medications Medications Dose Ordered Sig/Gerry Route Start Time Stop Time Status Last Admin Dose Admin Acetaminophen/ Hydrocodone Bitart 1 tab ONCE ONCE PO 04/19/20 13:00 04/19/20 13:01 DC 04/19/20 13:19 1 TAB Vital Signs/I&O 04/19/20 10:32 Temp 35.7 Pulse 87 Resp 20 B/P (MAP) 133/103 (113) Pulse Ox 92 O2 Delivery Room Air Blood Pressure Mean: 113 FSBG Bedside Testing Finger Stick Blood Glucose: 120 Progress Progress Note : Progress Note Patient was found to have a fracture of T12. Although this technically was more extensive than a compression fracture, it was stable and required no further therapy. It essentially can be treated as a compression fracture. This was discussed with Dr. Amor who personally viewed the images as well. Because of patient's recurrent episodes of disequilibrium, extensive cardiac history, and presence of trigeminy on the monitor, further cardiac work-up was deemed appropriate. Troponin returned elevated. A 2-hour troponin was increased. Case was discussed with Dr. Yung who expressed admission is appropriate. Patient was admitted to the primary care team. Because of his recent difficulty swallowing, a speech therapy consult was placed for swallow eval. Hydrocodone was given for pain. Initial ECG Impression Date: Apr 19, 2020 Initial ECG Impression Time: 10:41 Initial ECG Rate: 86 Comment Trigeminy with no ischemic ST elevation or depression. Diagnostic Imaging Diagonstic Imaging: CT Plain Films/CT/US/NM/MRI: c-spine, head Comments NAME: RADHAPETRONA E [facility] REC#: [id number] PT STATUS: ADM IN : 1935 PHYSICIAN: HEATHER PATRICK MD ADMIT DATE: 04/19/20/4TH Signed Date of Exam:04/19/20 CT HEAD/CERVICAL SPINE WO PROCEDURE: CT head and CT cervical spine without contrast. TECHNIQUE: Multiple contiguous axial images were obtained through the brain and cervical spine without the use of intravenous contrast. Sagittal and coronal reformations through the cervical spine were then performed. Auto Exposure Controls were utilized during the CT exam to meet ALARA standards for radiation dose reduction. INDICATION: Multiple falls. Loss of balance. COMPARISON: MRI brain without contrast 04/15/2014. FINDINGS: CT head: Advanced generalized cerebral and cerebellar parenchymal volume loss. Advanced leukoaraiosis. Intracranial vascular calcifications. Stable benign retrocerebellar cyst. No intracranial hemorrhage, mass effect, hydrocephalus or extra-axial fluid collections. No CT evidence of a territorial infarction. Osseous structures are intact. The visualized paranasal sinuses and mastoids are clear. CT cervical spine: Normal alignment. Vertebral body heights are preserved. No fractures. Moderate diffuse degenerative endplate changes. No high-grade spinal canal stenosis is evident on soft tissue windows. Right carotid artery stent. Emphysematous changes in the lung apices. IMPRESSION: No acute intracranial or cervical spine CT findings. Chronic findings as above. Dictated by: Dictated on workstation # [id number] Dict: 04/19/20 1135 Trans: 04/19/201648 [facility] [id number] Interpreted by: DANIELA BARRIENTOS MD Electronically signed by: DANIELA BARRIENTOS MD 04/19/207 Reviewed: Reviewed by Co Diagonstic Imaging: CT Plain Films/CT/US/NM/MRI: pelvis Comments NAME: PETRONA GARCIA [facility] REC#: [id number] PT STATUS: ADM IN : 1935 PHYSICIAN: HEATHER PATRICK MD ADMIT DATE: 04/19/20 Signed Date of Exam:04/19/20 CT PELVIS WO PROCEDURE: CT pelvis without contrast. TECHNIQUE: Multiple contiguous axial images were obtained through the pelvis without the use of intravenous contrast. Sagittal and coronal reformations were performed. Auto Exposure Controls were utilized during the CT exam to meet ALARA standards for radiation dose reduction. INDICATION: Fall on 04/15, now with loss of balance. FINDINGS: There are degenerative changes to the symphysis and SI joints as well as bilateral hips. No joint disruption or diastasis. No pelvic free fluid. No sidewall or intramuscular hematoma. The sacrococcygeal curvature and alignment appear normal. The femoral heads maintain normal sphericity and are directed into the acetabula bilaterally. No avulsion or other fracture pattern. No acute or post traumatic sequelae identified. IMPRESSION: Chronic degenerative changes but no pelvic fracture, free fluid, or hematoma. Dictated by: Dictated on workstation # [id number] Dict: 04/19/20 1150 Trans: 04/19/20 1640 [id number] Interpreted by: DAQUAN MCKEON Electronically signed by: DAQUAN MCKEON 04/19/20 1640 Reviewed: Reviewed by Me Diagonstic Imaging: CT Plain Films/CT/US/NM/MRI: other (Lumbar spine) Departure Communication (Admissions) Time/Spoke to Admitting Phy: 14:40 Dr. Matthew Lowery Time/Spoke to Consulting Phy: 14:25 Dr. Yung Impression Primary Impression: Elevated troponin Additional Impressions: Dysphagia Qualified Codes: R13.10 - Dysphagia, unspecified Fall on same level Qualified Codes: W18.30XA - Fall on same level, unspecified, initial encounter Fracture of T12 vertebra Qualified Codes: S22.088A - Other fracture of t11-T12 vertebra, initial encounter for closed fracture Trigeminy Disposition: ADMITTED INPATIENT Condition: Stable Admissions Decision to Admit Reason: Admit from ER (General) Decision to Admit/Date: Apr 19, 2020 Time/Decision to Admit Time: 14:25 Departure-Patient Inst. Referrals: CRISTOBAL AMOR MD (PCP/Family) Primary Care Physician EHATHER PATRICK MD Apr 19, 2020 14:02
--- NOTE | 2020-04-19 14:19 | Consultation-Cardiology ---
HPI-Cardiology Cardiology Consultation: Date of Consultation 04/19/20 Time Seen by a Provider: 16:10 Date of Admission 04-19-2020 Attending Physician Admitting Physician Ollie Amor MD Consulting Physician Britt Yung MD HPI: Chief Complaint: Elevated troponin Mr. Garcia is an 85 yr old male who has been admitted to 406 from the ED. He is a poor historian, however his daughter is at the bedside and is helping. She reports he has a h/o poor balance and has had a few falls at home recently d/t losing his balance and not using his walker. She states last evening he was in the living room at home when his heard him fall. She was unable to help him up, so she called their son who lives a few blocks away to come help him up. They were able to get him into the chair in the living room, but he was reporting significant back pain so he slept in the recliner. This morning he was still reporting back pain, therefore they brought him to the ED. Pt reports he believes he had been standing in the living for at least 10 minutes and he began to fall backwards. He does not recall whether he lost consciousness or not. No report of loss of bowel or bladder control. He denies any c/o CP, SOB or palpitations. He has chronic bilat LE swelling, which is unchanged in the recent past. He is reporting significant back pain. No report fever, chills, n/v/d. Review of Systems-Cardiology Review of Systems Constitutional: No chills, No fever, No malaise Eyes: No vision change Ears/Nose/Throat: No recent hearing loss; other (chronic MOHEGAN) Respiratory: As described under HPI Cardiovascular: As described under HPI Gastrointestinal: No constipation, No diarrhea, No nausea, No vomiting Genitourinary: No dysuria, No hematuria Musculoskeletal: other (back pain) Skin: No rash on exposed areas, No ulcerations on exposed areas Psychiatric/Neurological: As described under HPI; No anxiety, No depression, No seizure, No focal weakness NVS-Tztgse-Omjjch Hx Patient Social History Alcohol Use: Occasionally Uses Recreational Drug Use: No Smoking Status: Former Smoker Recent Foreign Travel: No Recent Infectious Disease Expo: No Past Medical History PMH As described under Assessment. Family Medical History Family Medical History: Family h/o father having CAD and HTN. Family History: 03 FATHER Chest pain, Onset:50's - 60 ([place]) Family history: Arthritis, Onset:40's - 50 Family history: Cardiovascular disease, Onset:40's 50 Family history: Hypertension, Onset:40's Heart disease, Onset:40's - Hypercholesterolemia, Onset:40's - 50 Myocardial infarction, Onset:40's 03 MOTHER Dementia, Onset:60 years & older Family history: Alzheimer's disease, Onset:60 years & older 09 SISTER Cancer, Onset:60 years & older (OVARIAN CANCER) 09 SISTER Cancer, Onset:40's - 50 (BREAST CANCER) Family history: Breast disease, Onset:40's ( OF BREAST CANCER) 09 SISTER Visual impairment, Onset: Allergies and Home Medications Allergies Coded Allergies: No Known Drug Allergies (Unverified , 06/06/17) Home Medications Aspirin 81 Mg Tablet.dr, 81 MG PO DAILY, (Reported) Atorvastatin Calcium 20 Mg Tablet, 20 MG PO HS, (Reported) Calcium Carbonate/Vitamin D3 1 Each Tablet, 1 TAB PO DAILY, (Reported) Carvedilol 6.25 Mg Tablet, 6.25 MG PO BID, (Reported) Cilostazol 100 Mg Tablet, 100 MG PO BID, (Reported) Furosemide 40 Mg Tablet, 40 MG PO DAILY PRN, (Reported) Insulin Glargine,Hum.rec.anlog 100 Unit/1 Ml Insuln.pen, 35 UNITS SC HS, (Reported) Insulin Lispro 100 Unit/1 Ml Insuln.pen, 20 UNITS SC TIDAC, (Reported) Multivitamin 1 Each Tablet, 1 TAB PO DAILY, (Reported) [place] 3 Polyunsat Fatty Acids 1,000 Mg Cap, 1,000 MG PO DAILY, (Reported) Spironolactone 25 Mg Tablet, 25 MG PO DAILY, (Reported) Physical Exam-Cardiology Physical Exam Vital Signs/I&O 04/19/20 04/20/20 04/20/20 04/20/20 23:45 01:00 04:04 07:00 Temp 36.8 36.7 Pulse 57 83 66 71 Resp 20 18 B/P (MAP) 162/78 (106) 179/90 (119) Pulse Ox 96 93 O2 Delivery Room Air Room Air 04/20/20 04/20/20 04/20/20 07:11 08:00 09:00 Temp 35.7 Pulse 70 Resp 18 B/P (MAP) 171/95 (120) Pulse Ox 92 92 O2 Delivery Room Air Room Air Room Air 04/20/20 00:00 Intake Total 360 ml Output Total 350 ml Balance 10 ml Capillary Refill : Less Than 3 Seconds Constitutional: AAO x 3, well-developed, well-nourished HEENT: PERRL, hard of hearing, oral hygience is good Neck: No carotid bruit; carotid pulses are 2 + bilaterally Cardiovascular: regular rate-rhythm; No JVD; S1 and S2, systolic murmur Gastrointestinal: No tender; soft, round, audible bowel sounds Extremities: other (mild bilat LE swelling) Neurologic/Psychiatric: grossly intact (moves all extremities) Skin: No rash on exposed areas, No ulcerations on exposed areas Data Review Labs Laboratory Tests 04/19/20 13:04: Urine Color YELLOW, Urine Clarity CLEAR, Urine pH 5.5, Urine Specific [place] >=1.030, Urine Protein 2+H, Urine Glucose (UA) NEGATIVE, Urine Ketones TRACEH, Urine Nitrite NEGATIVE, Urine Bilirubin 1+H, Urine Urobilinogen 1.0, Urine Leukocyte Esterase NEGATIVE, Urine RBC (Auto) NEGATIVE, Urine RBC NONE, Urine WBC NONE, Urine Squamous Epithelial Cells RARE, Urine Crystals NONE, Urine Bacteria TRACE, Urine Casts PRESENT, Urine Hyaline Casts 10-25H, Urine Mucus NEGATIVE, Urine Culture Indicated NO, Troponin I 0.065H 04/19/20 19:54: Glucometer 171H 04/20/20 04:20: White Blood Count 8.5, Red Blood Count 4.67, Hemoglobin 14.3, Hematocrit 42, Mean Corpuscular Volume 91, Mean Corpuscular Hemoglobin 31, Mean Corpuscular Hemoglobin Concent 34, Red Cell Distribution Width 13.0, Platelet Count 147, Mean Platelet Volume 10.7, Sodium Level 138, Potassium Level 4.1, Chloride Level 100, Carbon Dioxide Level 25, Anion Gap 13, Blood Urea Nitrogen 31H, Creatinine 1.03, Estimat Glomerular Filtration Rate > 60, BUN/Creatinine Ratio 30, Glucose Level 125H, Calcium Level 9.7, Magnesium Level 1.9, Triglycerides Level 111, Cholesterol Level 141, LDL Cholesterol Direct 99, VLDL Cholesterol 22, HDL Cholesterol 25L, Thyroid Stimulating Hormone (TSH) 0.85 04/20/20 09:45: Glucometer 186H Radiology NAME: PETRONA GARCIA [facility] REC#: [id number] PT STATUS: REG ER : 1935 PHYSICIAN: HEATHER PATRICK MD ADMIT DATE: 04/19/20/ER Draft Date of Exam:04/19/20 CT HEAD/CERVICAL SPINE WO PROCEDURE: CT head and CT cervical spine without contrast. TECHNIQUE: Multiple contiguous axial images were obtained through the brain and cervical spine without the use of intravenous contrast. Sagittal and coronal reformations through the cervical spine were then performed. Auto Exposure Controls were utilized during the CT exam to meet ALARA standards for radiation dose reduction. INDICATION: Multiple falls. Loss of balance. COMPARISON: MRI brain without contrast 04/15/2014. FINDINGS: CT head: Advanced generalized cerebral and cerebellar parenchymal volume loss. Advanced leukoaraiosis. Intracranial vascular calcifications. Stable benign retrocerebellar cyst. No intracranial hemorrhage, mass effect, hydrocephalus or extra-axial fluid collections. No CT evidence of a territorial infarction. Osseous structures are intact. The visualized paranasal sinuses and mastoids are clear. CT cervical spine: Normal alignment. Vertebral body heights are preserved. No fractures. Moderate diffuse degenerative endplate changes. No high-grade spinal canal stenosis is evident on soft tissue windows. Right carotid artery stent. Emphysematous changes in the lung apices. IMPRESSION: No acute intracranial or cervical spine CT findings. Chronic findings as above. Dictated on workstation # [id number] Dict: 04/19/20 1135 Trans: 04/19/20 1147 [facility] [id number] Interpreted by: DANIELA BARRIENTOS MD Electronically signed by: NAME: PETRONA GARCIA [facility] REC#: [id number] PT STATUS: REG ER : 1935 PHYSICIAN: HEATHER PATRICK MD ADMIT DATE: 04/19/20/ER Draft Date of Exam:04/19/20 CT LUMBAR SPINE WO PROCEDURE: CT lumbar spine without contrast. TECHNIQUE: Multiple contiguous axial images were obtained through the lumbar spine without the use of intravenous contrast. Sagittal and coronal reformations were then performed. Auto Exposure Controls were utilized during the CT exam to meet ALARA standards for radiation dose reduction. INDICATION: Fall with back pain and loss of balance. No relevant comparison. The superior greater than inferior endplate fractures at T12. At its middle 3rd this results in about 20% stature loss. There is underlying bony demineralization fracture lines at this level are lucent. This appears to be acute and there is some mild paraspinal edema and/or hemorrhage. No retropulsion. No involvement of the neural arch. The remaining lumbar statures are normal, no other acute or chronic fracture is found. There are degenerative changes to the discs endplates and facets throughout the lumbar spine. At L4-L5 disc bulge in conjunction with facet arthrosis and thickened ligament flava severely stenose the thecal sac and result in the moderate left and severe right neural foraminal stenosis. At the 5-1 level there is a moderate right and mild left foraminal narrowing. IMPRESSION: Acute predominantly superior endplate T12 fracture without retropulsion results in 20% stature loss at its middle 3rd and there is mild paraspinal hemorrhage or edema. Fracture lines do extend into the posterior one third of this vertebral body. No involvement of the posterior elements or neural arch. The remaining levels nonacute with lower lumbar spondylosis and facet arthrosis resulting in severe stenosis at the L4-L5 level as a chronic finding. Dictated on workstation # [id number] Dict: 04/19/20 1128 Trans: 04/19/20 1143 [facility] [id number] Interpreted by: DAQUAN MCKEON Electronically signed by: ECG Impression ECG Initial ECG Rhythm: Normal Sinus, PVC A/P-Cardiology Assessment/Admission Diagnosis Questionable syncopal episode Mildly elevated troponin Chronic systolic congestive heart failure - clinically compensated Recent falls at home Echocardiogram of October 24, 2017 showed concentric hypertrophy. LVEF 50-55%. RVSP WNL s/p TAVR at on 08/07/[address] Valente CAD: H/O CECY to the LAD at on 07/10/[address] Roman Carotid ultrasound 04/2019 which showed mild bilateral disease. H/o right carotid stent. PAD: Peripheral angiogram was done on 12/03/[address] Palafox which demonstrated moderate calcified disease segment in the right common iliac artery. Very tortuous right distal common iliac artery and external iliac artery. Small AV fistula noted in the distal right SFA filling deep saphenous vein. Mild diffuse disease in the right SFA. No significant disease in the right popliteal artery. At least moderate calcification is noted in the right SFA and popliteal artery. Severe stenosis in the right TP trunk with heavy calcification. Single-vessel runoff below the knee which is an anterior tibial artery which is occluded in the distal segment. Diffusely diseased severe deep peroneal and posterior tibial artery with heavy calcification with no contribution to flow to the foot. In the left lower extremity there was no significant disease in the left common and external iliac artery. Severe ostial stenosis of the left internal iliac artery. Moderate calcified stenosis is noted in the left common femoral artery. Moderate to severe stenosis in the proximal left SFA. Moderate disease calcified in the mid, distal SFA and proximal popliteal artery. Moderate to severe calcified is disease segment in the distal left popliteal artery. 1 vessel runoff below the left knee which is very likely a posterior tibial artery with subtotal occlusion in the proximal segment. Total occlusion of the deep peroneal and anterior tibial artery. Last HELADIO done on 05/07/[address] Palafox which showed severely abnormal bilateral HELADIO and TBI. Right HELADIO 0.46, TBI 0.25. Left HELADIO 0.45, TBI 0.35. No resting pain or nonhealing ulcers with single-vessel runoff bilaterally Hyperlipidemia Hypertension Per CT Lumbar spin of Apr 19, 2020: Acute predominantly superior endplate T12 fracture without retropulsion results in 20% stature loss at its middle 3rd and there is mild paraspinal hemorrhage or edema. Fracture lines do extend into the posterior one third of this vertebral body. No involvement of the posterior elements or neural arch. The remaining levels nonacute with lower lumbar spondylosis and facet arthrosis resulting in severe stenosis at the L4-L5 level as a chronic finding. Discussion and Recomendations Syncopal episode of undetermined etiology - advise telemetry to eval for bradyarrhythmias - if nothing seen on tele then need to consider ILR implant Continue home medication regimen Echocardiogram to eval structure Monitor lab closely Replace electrolytes as indicated Further recs will be based on his hospital course We would like to thank medical services for this consult SHERRI PURDY Apr 19, 2020 14:19
[2020-04-19 15:50] VITALS: BP 179/84
[2020-04-19] MEDS ORDERED: CATHETER FLUSH 10 ML SYR IV PRN (16:00)
[2020-04-19] MEDS ORDERED: HYDROcodone/APAP 5 MG/325 MG (LORTAB) TAB PO PRN (16:00)
[2020-04-19 16:14] VITALS: BP 179/84
--- NOTE | 2020-04-19 16:15 | NUR ---
PETRONA GARCIA JR admitted to room 406-1, with an admitting diagnosis of ELVATED TROPIN AND T-12 WITH FRACTURE AND FALL, on 04/19/20 from ED, accompanied by STAFF AND DAUGHTER.PETRONA GARCIA JR introduced to surroundings, call light, bed controls, phone, TV, temperature control, lights, meal times, smoking policy, visitor policy, side rail policy, bathrooms and showers. Patient Rights given to patient in the handbook. PETRONA GARCIA JR verbalizes understanding that [facility] is not responsible for the loss or damage to any personal effects or valuables that are kept in the patients posession during their hospitalization. The following Patient Care Plans were discussed with the PATIENT AND Daughter. Discharge Planning, falls and fractures. PETRONA GARCIA JR verbalizes understanding of Interdisciplinary Patient Education. Patient and/or family were informed about the Rapid Response Team and its purpose.
[2020-04-19] MEDS ORDERED: FLU QUAD HIGH DOSE 240 MCG/0.7 ML 2020-21 (FLUZONE) IM ONE (16:45)
[2020-04-19 17:06] VITALS: BP 179/84
--- NOTE | 2020-04-19 17:14 | Consultation-Cardiology ---
HPI-Cardiology Cardiology Consultation: Date of Consultation 04/19/20 Time Seen by a Provider: 16:50 Date of Admission Attending Physician Matthew Lowery MD Admitting Physician Ollie Amor MD Consulting Physician KALLI COURTNEY MD, MA, FACP, FACC, FSCAI, CCDS HPI: Chief Complaint: CC: Fall on 04/18/20 HPI Mr. Romo is an 85 yr old male who has been admitted to 406 from the ED. He is a poor historian, however his daughter is at the bedside and is helping. She reports he has a h/o poor balance and has had a few falls at home recently d/t losing his balance and not using his walker. She states last evening he was in the living room at home when his heard him fall. She was unable to help him up, so she called their son who lives a few blocks away to come help him up. They were able to get him into the chair in the living room, but he was reporting significant back pain so he slept in the recliner. This morning he was still reporting back pain, therefore they brought him to the ED. Pt reports he believes he had been standing in the living for at least 10 minutes and he be stevan to fall backwards. He does not recall whether he lost consciousness or not. No report of loss of bowel or bladder control. He denies any c/o CP, SOB or palpitations. He has chronic bilat LE swelling, which is unchanged in the recent past. He is reporting significant back pain. No report fever, chills, n/v/d. Review of Systems-Cardiology Review of Systems Constitutional: No chills, No fever, No malaise Eyes: No vision change Ears/Nose/Throat: No recent hearing loss; other (chronic IGIUGIG) Respiratory: As described under HPI Cardiovascular: As described under HPI Gastrointestinal: No constipation, No diarrhea, No nausea, No vomiting Genitourinary: No dysuria, No hematuria Musculoskeletal: other (back pain) Skin: No rash on exposed areas, No ulcerations on exposed areas Psychiatric/Neurological: As described under HPI; No anxiety, No depression, No seizure, No focal weakness AXO-Cozrnp-Hxsqlx Hx Patient Social History Alcohol Use: Occasionally Uses Recreational Drug Use: No Smoking Status: Former Smoker Recent Foreign Travel: No Recent Infectious Disease Expo: No Past Medical History PMH As described under Assessment. Family Medical History Family Medical History: Family h/o father having CAD and HTN. Family History: Cancer 09 SISTER, Onset:60 years & older (OVARIAN CANCER) 09 SISTER, Onset:40's - 50 (BREAST CANCER) Chest pain 03 FATHER, Onset:50's - 60 ([place]) Dementia 03 MOTHER, Onset:60 years & older Family history: Alzheimer's disease 03 MOTHER, Onset:60 years & older Family history: Arthritis 03 FATHER, Onset:40's - 50 Family history: Breast disease 09 SISTER, Onset:40's - 50 ( OF BREAST CANCER) Family history: Cardiovascular disease 03 FATHER, Onset:40's - 50 Family history: Hypertension 03 FATHER, Onset:40's - 50 Heart disease 03 FATHER, Onset:40's - 50 Hypercholesterolemia 03 FATHER, Onset:40's - 50 Myocardial infarction 03 FATHER, Onset:40's - 50 Visual impairment 09 SISTER, Onset:40's - 50 No Family History of: Abdominal aortic aneurysm [place]'s disease Alcoholism Aphasia Cancer of colon Cataract Congenital heart disease Congestive heart failure Cystic fibrosis Dysphagia Family history: Allergy Family history: Asthma Family history: Coronary thrombosis Family history: Diabetes mellitus Family history: Gastrointestinal disease Family history: Glaucoma Family history: Osteoporosis Family history: Thyroid disorder Headache Hearing loss Hereditary disease History of - anemia History of - disorder History of - respiratory disease History of drug abuse Human immunodeficiency virus (HIV) seropositivity Infertile Kidney disease Malignant neoplasm of lung Parkinson's disease Prostate cancer Psychotic disorder Seizure disorder Stroke Tuberculosis Allergies and Home Medications Allergies Coded Allergies: No Known Drug Allergies (Unverified , 06/06/17) Home Medications Aspirin 81 Mg Tablet.dr, 81 MG PO DAILY, (Reported) Atorvastatin Calcium 20 Mg Tablet, 20 MG PO HS, (Reported) Calcium Carbonate/Vitamin D3 1 Each Tablet, 1 TAB PO DAILY, (Reported) Carvedilol 3.125 Mg Tablet, 3.125 MG PO BID, (Reported) Cilostazol 100 Mg Tablet, 100 MG PO BID, (Reported) Furosemide 40 Mg Tablet, 40 MG PO DAILY PRN, (Reported) Insulin Glargine,Hum.rec.anlog 100 Unit/1 Ml Insuln.pen, 35 UNITS SC HS, (Reported) Insulin Lispro 100 Unit/1 Ml Insuln.pen, 20 UNITS SC TIDAC, (Reported) Multivitamin 1 Each Tablet, 1 TAB PO DAILY, (Reported) [place] 3 Polyunsat Fatty Acids 1,000 Mg Cap, 1,000 MG PO DAILY, (Reported) Ramipril 5 Mg Capsule, 5 MG PO BID, (Reported) Spironolactone 25 Mg Tablet, 25 MG PO DAILY, (Reported) Patient Home Medication List Home Medication List Reviewed: Yes Physical Exam-Cardiology Physical Exam Vital Signs/I&O 04/19/20 04/19/20 04/19/20 04/19/20 10:32 15:22 15:50 16:14 Temp 35.7 36.2 36.4 Pulse 87 82 74 73 Resp 20 18 18 18 B/P (MAP) 133/103 (113) 104/78 179/84 179/84 (115) Pulse Ox 92 98 92 92 O2 Delivery Room Air Room Air Room Air Room Air Capillary Refill : Less Than 3 Seconds Constitutional: AAO x 3, well-developed, well-nourished HEENT: PERRL, hard of hearing, oral hygience is good Neck: No carotid bruit; carotid pulses are 2 + bilaterally Cardiovascular: regular rate-rhythm; No JVD; S1 and S2, systolic murmur Gastrointestinal: No tender; soft, round, audible bowel sounds Extremities: other (mild bilat LE swelling) Neurologic/Psychiatric: grossly intact (moves all extremities) Skin: No rash on exposed areas, No ulcerations on exposed areas Data Review Labs Laboratory Tests 04/19/20 10:35: Glucometer 120H 04/19/20 10:52: White Blood Count 9.3, Red Blood Count 4.83, Hemoglobin 14.6, Hematocrit 44, Mean Corpuscular Volume 91, Mean Corpuscular Hemoglobin 30, Mean Corpuscular Hemoglobin Concent 33, Red Cell Distribution Width 13.1, Platelet Count 166, Mean Platelet Volume 9.8, Immature Granulocyte % (Auto) 1, Neutrophils (%) (Auto) 67, Lymphocytes (%) (Auto) 20, Monocytes (%) (Auto) 12, Eosinophils (%) (Auto) 0, Basophils (%) (Auto) 0, Neutrophils # (Auto) 6.3, Lymphocytes # (Auto) 1.9, Monocytes # (Auto) 1.1H, Eosinophils # (Auto) 0.0, Basophils # (Auto) 0.0, Immature Granulocyte # (Auto) 0.1, Sodium Level 135, Potassium Level 3.9, Chloride Level 98, Carbon Dioxide Level 23, Anion Gap 14, Blood Urea Nitrogen 36H, Creatinine 1.28, Estimat Glomerular Filtration Rate 53, BUN/Creatinine Ratio 28, Glucose Level 127H, Calcium Level 10.7H, Corrected Calcium 10.8H, Mag nesium Level 2.1, Total Bilirubin 1.5H, Aspartate Amino Transf (AST/SGOT) 22, Alanine Aminotransferase (ALT/SGPT) 18, Alkaline Phosphatase 103, Troponin I 0.053H, Total Protein 7.6, Albumin 3.9 04/19/20 13:04: Troponin I 0.065H, Urine Color YELLOW, Urine Clarity CLEAR, Urine pH 5.5, Urine Specific [place] >=1.030, Urine Protein 2+H, Urine Glucose (UA) NEGATIVE, Urine Ketones TRACEH, Urine Nitrite NEGATIVE, Urine Bilirubin 1+H, Urine Urobilinogen 1.0, Urine Leukocyte Esterase NEGATIVE, Urine RBC (Auto) NEGATIVE, Urine RBC NONE, Urine WBC NONE, Urine Squamous Epithelial Cells RARE, Urine Crystals NONE, Urine Bacteria TRACE, Urine Casts PRESENT, Urine Hyaline Casts 10-25H, Urine Mucus NEGATIVE, Urine Culture Indicated NO A/P-Cardiology Assessment/Admission Diagnosis Questionable syncopal episode Minimally elevated troponin, probably type 2 [place] due to hypertension Hypertension Poor balance, intermittent noncompliance with supportive devices such as cane/wa lker, recent falls at home Echocardiogram of October 24, 2017 showed concentric hypertrophy. LVEF 50-55%. RVSP WNL s/p TAVR at on 08/07/[address] Valente CAD: H/O CECY to the LAD at on 07/10/[address] Roman Carotid ultrasound 04/2019 which showed mild bilateral disease. H/o right carotid stent. PAD: Peripheral angiogram was done on 12/03/[address] Palafox which demonstrated moderate calcified disease segment in the right common iliac artery. Very tortuous right distal common iliac artery and external iliac artery. Small AV fistula noted in the distal right SFA filling deep saphenous vein. Mild diffuse disease in the right SFA. No significant disease in the right popliteal artery. At least moderate calcification is noted in the right SFA and popliteal artery. Severe stenosis in the right TP trunk with heavy calcification. Single-vessel runoff below the knee which is an anterior tibial artery which is occluded in the distal segment. Diffusely diseased severe deep peroneal and posterior tibial artery with heavy calcification with no contribution to flow to the foot. In the left lower extremity there was no significant disease in the left common and external iliac artery. Severe ostial stenosis of the left internal iliac artery. Moderate calcified stenosis is noted in the left common femoral artery. Moderate to severe stenosis in the proximal left SFA. Moderate disease calcified in the mid, distal SFA and proximal popliteal artery. Moderate to severe calcified is disease segment in the distal left popliteal artery. 1 vessel runoff below the left knee which is very likely a posterior tibial artery with subtotal occlusion in the proximal segment. Total occlusion of the deep peroneal and anterior tibial artery. Last HELADIO done on 05/07/[address] Palafox which showed severely abnormal bilateral HELADIO and TBI. Right HELADIO 0.46, TBI 0.25. Left HELADIO 0.45, TBI 0.35. No resting pain or nonhealing ulcers with single-vessel runoff bilaterally. Managed conservatively Hyperlipidemia Hypertension Per CT Lumbar spin of Apr 19, 2020: Acute predominantly superior endplate T12 fracture without retropulsion results in 20% stature loss at its middle 3rd and there is mild paraspinal hemorrhage or edema. Fracture lines do extend into the posterior one third of this vertebral body. No involvement of the posterior elements or neural arch. The remaining levels nonacute with lower lumbar spondylosis and facet arthrosis resulting in severe stenosis at the L4-L5 level as a chronic finding. Discussion and Recomendations Advise telemetry to eval for arrhythmias - if nothing seen on tele then need to consider ILR implant Continue home medication regimen Echocardiogram to eval structure Monitor lab closely Replace electrolytes as indicated Further recs will be based on his hospital course We would like to thank Medical services for this consult Clinical Quality Measures DVT/VTE Risk/Contraindication: Risk Factor Score Per Nursin RFS Level Per Nursing on Admit: 4+=Very High KALLI COURTNEY MD FACP FAC CCDS Apr 19, 2020 17:14
[2020-04-19] MEDS ORDERED: RT-ALBUTEROL/IPRATROPIUM 3 ML (DUONEB) VIAL INH PRN (17:15)
--- NOTE | 2020-04-19 17:53 | NUR ---
ICU notified floor of patient being in A-fib. EKG completed, Dr. Yung here, read EKG.
[2020-04-19 19:55] VITALS: BP 127/79
[2020-04-19] MEDS: CATHETER FLUSH 10 ML SYR IV SCH (20:49)
[2020-04-19] MEDS: inSUlin ASPART (NovoLOG) 1 UNIT/0.01 ML (CHARGE PER UNIT) SC SCH (20:49)
[2020-04-19] MEDS ORDERED: CARVEDILOL 6.25 MG (COREG) TAB PO SCH (21:00)
[2020-04-19 23:45] VITALS: BP 162/78
[2020-04-20 04:04] VITALS: BP 179/90
[2020-04-20 05:01] LABS: HEMOGLOBIN 14.3 g/dL (13.3-17.7); MEAN PLATELET VOLUME 10.7 fL (9.0-12.2); WHITE BLOOD COUNT 8.5 10^3/uL (4.3-11.0)
[2020-04-20 05:12] LABS: CHLORIDE 100 MMOL/L (98-107); POTASSIUM 4.1 MMOL/L (3.6-5.0); SODIUM 138 MMOL/L (135-145)
[2020-04-20 05:13] LABS: CALCIUM 9.7 MG/DL (8.5-10.1)
[2020-04-20 05:14] LABS: GLUCOSE 125 MG/DL (70-105); TRIGLYCERIDES 111 MG/DL (<150); VLDL CHOLESTEROL 22 MG/DL (5-40)
[2020-04-20 05:15] LABS: CARBON DIOXIDE 25 MMOL/L (21-32)
[2020-04-20 05:18] LABS: CREATININE SERUM 1.03 MG/DL (0.60-1.30); GFR ESTIMATED > 60
[2020-04-20 05:19] LABS: BUN/CREATININE RATIO 30; CHOLESTEROL 141 MG/DL (< 200)
[2020-04-20 05:20] LABS: HDL CHOLESTEROL 25 MG/DL (40-60); MAGNESIUM 1.9 MG/DL (1.6-2.4)
[2020-04-20] MEDS: CATHETER FLUSH 10 ML SYR IV SCH ×2 (06:33→14:41)
[2020-04-20] MEDS: inSUlin ASPART (NovoLOG) 1 UNIT/0.01 ML (CHARGE PER UNIT) SC SCH ×3 (06:33→15:23)
[2020-04-20 08:00] VITALS: BP 171/95
--- NOTE | 2020-04-20 08:25 | ST Dysphagia Evaluation ---
Speech Evaluation-General Medical Diagnosis Fall with injury Onset Date: Apr 20, 2020 Therapy Diagnosis Therapy Diagnosis: Oropharyngeal Dysphagia Precautions Precautions: Aspiration Referral Referring Physician: Dr. Lowery Medical History Pertinent Medical History: CAD, DM, Heart Failure, HTN, [place] Social History Current Living Status: Spouse Speech PLF/Current-Dysphagia Prior Level of Function Patient lives at home with his . He was independent for much of his daily needs. He does have a large family who are very involved as well. Subjective Patient was noted to repeat himself frequently, however he was cooperative with the Bedside Dysphagia Evaluation. Cognitive Status Patient Orientation: Confused, Place Patient stated the swallowing problem was the reason he was in here. When clinician stated he had come due to fall with injury, he stated that was the "main reason I'm here." Oral Motor Skills Dentition: Natural Current Food Consistancy: Mechanical Soft, Thin Liquids Ability to Follow Directions: Fair Oral Expression Ability: Mild Impairment Voice Voice Phonatory-Based Quality: Hoarse Voice Pitch: Normal Voice Loudness: Mildly Soft/Quiet Face Facial Symmetry: Symmetrical Oral-Facial Assessment Oral-Facial Dentition: Normal Labial Seal Description: Normal Smile: Normal Lingual Protrusion: Normal Lingual ROM: Normal Lingual Strength: Normal Pharynx Velopharyngeal Move.: Normal Volitional Dry Swallow: Yes Voluntary Cough: Yes Can Clear Throat Volitionally: Yes Dysphagia Evaluation Consistencies Presented: Thin Liquid, Mechanical Soft, Pureed Oral phase is within normal range of function for consistencies presented. Pharyngeal phase is within normal range of function for consistencies presented. Dietary Recommendations: Mechanical Soft Liquid Recommendations: Thin Swallowing Precautions: Alternate Liquids/Solids, Double Swallow, Decreased Bolus 1/2 Tsp, Decreased Rate of Oral Intake, Liquids from Straw, Small Bites and Sips, Sitting Upright 90 Degrees, Sitting 90 Degrees 30 Post Intake Dysphagia Evaluation Summary Patient was admitted to the hospital via ED due to fall with injury. The patient was finishing eating breakfast when I entered his room. He was presented 1/2 tsp of thin liquids x2 and small sips via straw x2 without difficulty. Patient was given 1/2 tsp of puree without difficulty and good oral clearing. The patient was given 1/2 tsp bite of mechanical soft without difficulty and good oral c learing. The patient is currently on a Dysphagia II diet level with thin which appears to be least restrictive diet for safe intake. Patient is recommended to continue on current diet level. Barriers to Learning Patient has mild dementia Speech-Plan Patient/Family Goals Patient/Family Goals: Patient and family plans on his return home upon discharge. Treatment Plan Speech Therapy Treatment Plan: Discontinue ST Treatment Duration: Apr 20, 2020 Frequency: 1 time per week Estimated Hrs Per Day: .25 hour per day Rehab Potential: Fair Barriers to Learning: Patient has dementia Pt/Family Agrees to Plan: Yes Safety Risks/Education Teaching Recipient: Patient Teaching Methods: Discussion Response to Teaching: Verbalize Understanding Education Topics Provided: Safety of oral intake, diet level Time Speech Therapy Time In: 08:00 Speech Therapy Time Out: 08:20 Total Billed Time: 20 Billed Treatment Time 1, MONALISA, DYST TIM Carrington Apr 20, 2020 08:25
--- NOTE | 2020-04-20 08:26 | History & Physical ---
History of Present Illness History of Present Illness Reason for visit/HPI 85 yo M with repeated falls over the last week and back pain that has not improved. He does have some cognitive decline, not well controlled diabetes (due to inconsistent use of insulin (too much or not at all)-though this has improved), decrease in proprioception due to diabetes is also contributing to his offbalance. He does have a cane. Patient was also found to have T12 vertebrae fracture that orthopedics (Dr. Amor) recommended a back brace. CT also showed severe stenosis at L4L5 Troponin was elevated on admission and decision to monitor was made- cardiology is following. Last night he went into afib. Date of Admission Apr 19, 2020 at 14:48 Date Seen by a Provider: Apr 20, 2020 Time Seen by a Provider: 08:20 I consulted on this patient on 04/20/20 08:20 Attending Physician Matthew Nieto MD Admitting Physician Matthew Nieto MD Consult Allergies and Home Medications Allergies Coded Allergies: No Known Drug Allergies (Unverified , 06/06/17) Home Medications Aspirin 81 Mg Tablet.dr, 81 MG PO DAILY, (Reported) Atorvastatin Calcium 20 Mg Tablet, 20 MG PO HS, (Reported) Calcium Carbonate/Vitamin D3 1 Each Tablet, 1 TAB PO DAILY, (Reported) Carvedilol 6.25 Mg Tablet, 6.25 MG PO BID, (Reported) Cilostazol 100 Mg Tablet, 100 MG PO BID, (Reported) Furosemide 40 Mg Tablet, 40 MG PO DAILY PRN, (Reported) Insulin Glargine,Hum.rec.anlog 100 Unit/1 Ml Insuln.pen, 35 UNITS SC HS, (Reported) Insulin Lispro 100 Unit/1 Ml Insuln.pen, 20 UNITS SC TIDAC, (Reported) Multivitamin 1 Each Tablet, 1 TAB PO DAILY, (Reported) [place] 3 Polyunsat Fatty Acids 1,000 Mg Cap, 1,000 MG PO DAILY, (Reported) Spironolactone 25 Mg Tablet, 25 MG PO DAILY, (Reported) Patient Home Medication List Home Medication List Reviewed: Yes Past Gixhqrd-Vqsmwx-Gymgcq Hx Patient Social History Alcohol Use: Occasionally Uses Alcohol Beverage of Choice: Beer Recreational Drug Use: No Smoking Status: Former Smoker Former Smoker, Quit: Dec 03, 1982 Recent Foreign Travel: No Contact w/other who traveled: No Recent Hopitalizations: Yes Recent Infectious Disease Expo: No Immunizations Up To Date Pediatric: Yes Seasonal Allergies Seasonal Allergies: No Surgeries Yes (rotator cuff bilat, knee replacement, broken legs bilat, melanomo in ear re) Cardiac, Valve Replacement (TAVR procedure) Respiratory No COPD Currently Using CPAP: No Currently Using BIPAP: No Cardiovascular Yes (Heart failure with ischemic cardiomyopathy) Angina, Chronic Edema/Swelling, Coronary Artery Disease, Heart Attack, High Cholesterol, Hypertension, Peripheral Vascular, Valvular Heart Disease Neurological Yes Dementia, Neuropathy Reproductive System Hx Reproductive Disorders: No Sexually Transmitted Disease: No HIV/AIDS: No Genitourinary No Gastrointestinal No Musculoskeletal Yes Gout Endocrine History of Endocrine Disorders: Yes Endocrine Disorders: Diabetes, Insulin dep HEENT History of HEENT Disorders: Yes HEENT Disorders: Cataract Loss of Vision: Denies Hearing Impairment: Hard of Hearing Cancer Yes Skin, Melanoma Did You Recieve Any Treatments: No Psychosocial History of Psychiatric Problem: No Behavioral Health Disorders: Sleep Difficulties Integumentary History of Skin or Integumenta: Yes (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 ) Blood Transfusions History of Blood Disorders: No Adverse Reaction to a Blood Tr: No Family Medical History Significant Family History: Heart Disease, Cancer, CAD Under 55 Years Old Family Hx: Cancer 09 SISTER, Onset:60 years & older (OVARIAN CANCER) 09 SISTER, Onset:40's - 50 (BREAST CANCER) Chest pain 03 FATHER, Onset:50's - 60 ([place]) Dementia 03 MOTHER, Onset:60 years & older Family history: Alzheimer's disease 03 MOTHER, Onset:60 years & older Family history: Arthritis 03 FATHER, Onset:40's - 50 Family history: Breast disease 09 SISTER, Onset:40's - 50 ( OF BREAST CANCER) Family history: Cardiovascular disease 03 FATHER, Onset:40's - 50 Family history: Hypertension 03 FATHER, Onset:40's - 50 Heart disease 03 FATHER, Onset:40's - 50 Hypercholesterolemia 03 FATHER, Onset:40's - 50 Myocardial infarction 03 FATHER, Onset:40's - 50 Visual impairment 09 SISTER, Onset:40's - 50 No Family History of: Abdominal aortic aneurysm [place]'s disease Alcoholism Aphasia Cancer of colon Cataract Congenital heart disease Congestive heart failure Cystic fibrosis Dysphagia Family history: Allergy Family history: Asthma Family history: Coronary thrombosis Family history: Diabetes mellitus Family history: Gastrointestinal disease Family history: Glaucoma Family history: Osteoporosis Family history: Thyroid disorder Headache Hearing loss Hereditary disease History of - anemia History of - disorder History of - respiratory disease History of drug abuse Human immunodeficiency virus (HIV) seropositivity Infertile Kidney disease Malignant neoplasm of lung Parkinson's disease Prostate cancer Psychotic disorder Seizure disorder Stroke Tuberculosis Review of Systems Review of Systems General: No Chills, No Night Sweats HEENT: No Head Aches, No Visual Changes Pulmonary: No Dyspnea Gastrointestinal: No: Nausea, Vomiting Genitourinary: No Dysuria Musculoskeletal: back pain Neurological: Weakness, Confusion Physical Exam Vital Signs Vital Signs - First Documented 04/19/20 04/19/20 10:32 17:12 Temp 35.7 Pulse 87 Resp 20 B/P (MAP) 133/103 (113) Pulse Ox 92 O2 Delivery Room Air O2 Flow Rate 0.00 Capillary Refill : Less Than 3 SecondsLess Than 3 Seconds Height, Weight, BMI Height: 5'10.00" Weight: 215lbs. 0.0oz. 97.940628ry; 31.32 BMI Method:Stated General Appearance: Mild Distress HEENT: PERRL/EOMI Neck: Normal Inspection, Non Tender, Supple Respiratory: Chest Non Tender, Lungs Clear, Normal Breath Sounds Cardiovascular: Regular Rate, Rhythm Gastrointestinal: Normal Bowel Sounds, Non Tender, Soft Rectal: Deferred Back: Normal Inspection, Vertebral Tenderness (T12 area) Extremity: Non Tender, Pedal Edema Neurologic/Psychiatric: Alert, Oriented x3 Skin: Warm/Dry Assessment/Plan Assessment/Plan Admission Dx back pain elevated troponin dysphagia Admission Status: Inpatient Order (span 2 midnights) Reason for Inpatient Admission: With patient's multiple co-morbidities he will need 2 midnights- to trend troponin, evaluate his gait, strength for a safe return home or if he needs placement. Will need to get his pain under control. Assessment and Plan 04/19/20 Admitted for elevated troponin, repeated falls. 04/20/20-Contributing factors for his falls- diabetes, cognitive decline, debility/weakness, PAD, spinal stenosis L4-L5. -checking hga1c. -PT/OT/ST to work with patient. -ST to work with patient as there has been some issues with swallowing. -Pt unsure of if he wants to be full code because he is not sure if intubating, chest compressions would be in his best interest if his heart stops. -Will discuss further. -Cardiology consulted- plan to place a loop recorder. -Discharge planning could possibly go home today 04/20/20 or tomorrow 04/21/20- depending on today's evaluation. Problems: (1) Fracture of T12 vertebra Qualifiers: (2) PAD (peripheral artery disease) (3) Essential (primary) hypertension (4) Insulin dependent diabetes mellitus Assessment & Plan: continue home regimen (5) CAD (coronary artery disease) (6) Dysphagia Qualifiers: Qualified Codes: R13.10 - Dysphagia, unspecified (7) Afib Clinical Quality Measures DVT/VTE Risk/Contraindication: Risk Factor Score Per Nursin RFS Level Per Nursing on Admit: 4+=Very High MATTHEW NIETO MD Apr 20, 2020 08:26
[2020-04-20] MEDS ORDERED: SPIRONOLACTONE 25 MG (ALDACTONE) TAB PO SCH (09:00)
[2020-04-20] MEDS ORDERED: RAMIPRIL 2.5 MG (ALTACE) CAP PO SCH (09:00)
[2020-04-20] MEDS ORDERED: CILOSTAZOL 100 MG PO SCH (09:00)
[2020-04-20] MEDS ORDERED: ASPIRIN 81 MG CHEW (CHILDREN'S ASA) PO SCH (09:00)
[2020-04-20] MEDS ORDERED: CARVEDILOL 3.125 MG (COREG) TABLET PO SCH ×2 (09:00→21:00)
[2020-04-20] MEDS ORDERED: CLOPIDOGREL 75 MG (PLAVIX) TABLET PO SCH (09:00)
--- NOTE | 2020-04-20 09:00 | NUR ---
daughter marco michel brought home medication cilostazol 100 mg bid. this rn sent to pharmacy due to nf medication.
[2020-04-20] MEDS ORDERED: PATIENT MAY USE OWN MED,SINGLE MED PO SCH (09:30)
--- NOTE | 2020-04-20 10:03 | Physical Therapy Evaluation ---
PT Evaluation-General Medical Diagnosis Admission Date Apr 19, 2020 at 14:48 Medical Diagnosis: Fall with injury Onset Date: Apr 19, 2020 Therapy Diagnosis Therapy Diagnosis: impaired mobility, strength, endurance Height/Weight Height (Feet): 5 Height (Inches): 10.00 Weight (Pounds): 215 Weight (Ounces): 0.0 Precautions Precautions/Isolations: Fall Prevention, Standard Precautions Referral Physician: Sebastián Reason for Referral: Evaluation/Treatment Medical History Pertinent Medical History: CAD, DM, Heart Failure, HTN, [place] Additional Medical History Surgeries Yes (rotator cuff bilat, knee replacement, broken legs bilat, melanomo in ear re ) Cardiac, Valve Replacement (TAVR procedure) Respiratory No COPD Currently Using CPAP: No Currently Using BIPAP: No Cardiovascular Yes (Heart failure with ischemic cardiomyopathy) Angina, Chronic Edema/Swelling, Coronary Artery Disease, Heart Attack, High Cholesterol, Hypertension, Peripheral Vascular, Valvular Heart Disease Neurological Yes Dementia, Neuropathy Reproductive System Hx Reproductive Disorders: No Sexually Transmitted Disease: No HIV/AIDS: No Genitourinary No Gastrointestinal No Musculoskeletal Yes Gout Endocrine History of Endocrine Disorders: Yes Endocrine Disorders: Diabetes, Insulin dep HEENT History of HEENT Disorders: Yes HEENT Disorders: Cataract Loss of Vision: Denies Hearing Impairment: Hard of Hearing Cancer Yes Skin, Melanoma Did You Recieve Any Treatments: No Psychosocial History of Psychiatric Problem: No Behavioral Health Disorders: Sleep Difficulties Integumentary History of Skin or Integumenta: Yes (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 8-Hrlspyjitd-ndbraey completes the activity by him/herself with no assistance from a helper. 5-Set-up or Clean-up Assistance-helper sets up or cleans up; patient completes activity. [place] assists only prior to or following the activity. 4-Supervision or Touching Assistance-helper provides verbal cues and/or touching/steadying and/or contact guard assistance as patient completes activity. Assistance may be provided throughout the activity or intermittently. 3-Partial/Moderate Assistance-helper does LESS THAN HALF the effort. [place] lifts, holds or supports trunk or limbs, but provides less than half the effort. 2-Substantial/Maximal Assistance-helper does MORE THAN HALF the effort. [place] lifts or holds trunk or limbs and provides more than half the effort. 8-Vfljuidsk-mmiqjq does ALL the effort. Patient does none of the effort to complete the activity. Or, the assistance of 2 or more helpers is required for the patient to complete the activity. If activity was not attempted, code reason: 7-Patient Refused. 9-Not Applicable-not attempted and the patient did not perform the activity bef ore the current illness, exacerbation or injury. 10-Not Attempted due to Environmental Limitations-(lack of equipment, weather r estraints, etc.). 88-Not Attempted due to Medical Conditions or Safety Concerns. Bed Mobility: 6 Transfers (B,C,W/C): 6 Gait: 6 Stairs: 6 Indoor Mobility (Ambulation): Independent Stairs: Independent Patient states he was using a SPC previously PT Evaluation-Current Subjective Patient in recliner pre tx, agrees to PT, has unrated low back pain especially with standing Pt/Family Goals to be independent at home Objective Patient Orientation: Person, Confused, Situation ROM/Strength ROM Lower Extremities WNL Strength Lower Extremities 4/5 gross BLE except for hip flexion which is 2/5 Sensory Hearing: Functional Sensation Right Lower Extremit: Intact Sensation Left Lower Extremity: Intact Transfers Sit to Stand (QC): 3 Chair/Ofs-uf-Xsigc Xfer(QC): 3 Gait Does the Patient Walk?: Yes Mode of Locomotion: Walk Anticipated Mode of Locomotion: Walk Walk 10 feet (QC): 3 Distance: 40' Gait Assistive Device: FWW Comments/Gait Description Patient is very unsteady, needs assist to keep walker close to him, seems to have a parkinson-like difficulty initiating stepping, barely made it back to the recliner Balance Sitting Static: Normal Sitting Dynamic: Normal Standing Static: Poor Standing Dynamic: Poor Treatment BLE seated exercises x20 (AP, LAQ) Assessment/Needs Patient has impaired mobility, strength, endurance. Patient in recliner post tx with nurse call, phone, tray, all needs met. Patient is very unsteady with ambulation, has trouble initiating steps. 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 Goals Senior Care Goals PT Partition Assembly Machine Operator Goals Time Frame: Apr 27, 2020 Roll Left & Right (QC): 6 Sit to Lying (QC): 6 Lying-Sitting on Side/Bed(QC): 6 Sit to Stand (QC): 4 Chair/Jyc-wp-Vbinc Xfer(QC): 4 Walk 10 feet (QC): 4 Walk 50ft with 2 Turns (QC): 4 PT Plan Problem List Problem List: Activity Tolerance, Functional Strength, Safety, Balance, Gait, Transfer, Bed Mobility, ROM Treatment/Plan Treatment Plan: Continue Plan of Care Treatment Plan: Bed Mobility, Education, Functional Activity Romy, Functional Strength, Gait, Safety, Therapeutic Exercise, Transfers Treatment Duration: Apr 27, 2020 Frequency: 6 times per week Patient and/or Family Agrees t: Yes Safety Risks/Education Patient Education: Gait Training, Transfer Techniques, Correct Positioning, Safety Issues Teaching Recipient: Patient Teaching Methods: Demonstration, Discussion Response to Teaching: Reinforcement Needed Discharge Recommendations Plan Patient will perform bed mobility and transfer training, balance and endurance training, functional strengthening, stair training, gait training, and education, to improve functional mobility and independence at home. Therapy Discharge Recommendati: 24 Hour Supervision Time/GCodes Time In: 0935 Time Out: 0954 Total Billed Treatment Time: 19 Total Billed Treatment 1 visit VEDA MARIE PT Apr 20, 2020 10:03
--- NOTE | 2020-04-20 10:15 | NUR ---
I SPOKE WITH PTS DAUGHTER (DARWIN) AND SHE LET ME KNOW THAT WHEN THE PT WAS ADMITTED HER AND THE NURSE WENT THRU AND COMPLETED THE MED REC. Addendum: 04/20/20 at 1032 by [facility] I CALLED DARWIN BACK TO CONFIRM THE CARVEDILOL DOSE- 3.125MG BID HAD BEEN CONTINUED HOWEVER THE EXT MED HISTORY SHOWS THE PT HAD BEEN RECEIVING 6.25MG BID. DARWIN CALL ME BACK AND CONFIRMED THE PT IS TAKING 6.25MG BID. RAMIPRIL 5MG IS NOT SHOWING ON THE MED REC, WHEN I LOOKED THRU THE SNAPSHOT IS SHOWS IT WAS ON THE MED REC BUT DR. NIETO DISCONTINUED.
[2020-04-20] MEDS ORDERED: CARV6.252 PO (10:27)
[2020-04-20] MEDS ORDERED: CARVEDILOL 6.25 MG (COREG) TAB PO SCH (10:45)
--- NOTE | 2020-04-20 11:19 | Progress Note - Cardiology ---
Cardiology SOAP Progress Note Subjective: Sitting up in recliner at the bedside Denies any c/o CP, palpitations, syncope or near syncope or SOB Objective: I&O/Vital Signs 04/19/20 04/20/20 04/20/20 04/20/20 23:45 01:00 04:04 07:00 Temp 36.8 36.7 Pulse 57 83 66 71 Resp 20 18 B/P (MAP) 162/78 (106) 179/90 (119) Pulse Ox 96 93 O2 Delivery Room Air Room Air 04/20/20 04/20/20 04/20/20 07:11 08:00 09:00 Temp 35.7 Pulse 70 Resp 18 B/P (MAP) 171/95 (120) Pulse Ox 92 92 O2 Delivery Room Air Room Air Room Air 04/20/20 00:00 Intake Total 360 ml Output Total 350 ml Balance 10 ml Weight (Pounds): 215 Weight (Ounces): 0.0 Weight (Calculated Kilograms): 97.239250 Constitutional: AAO x 3, well-developed, well-nourished Cardiovascular: regular rate-rhythm; No JVD; S1 and S2, systolic murmur Gastrointestional: No tender; soft, round, audible bowel sounds Extremities: other (mild bilat LE swelling) Neurologic/Psychiatric: grossly intact (moves all extremities) Skin: No rash on exposed areas, No ulcerations on exposed areas Results/Procedures: Labs Laboratory Tests 04/19/20 13:04: Urine Color YELLOW, Urine Clarity CLEAR, Urine pH 5.5, Urine Specific [place] >=1.030, Urine Protein 2+H, Urine Glucose (UA) NEGATIVE, Urine Ketones TRACEH, Urine Nitrite NEGATIVE, Urine Bilirubin 1+H, Urine Urobilinogen 1.0, Urine Leukocyte Esterase NEGATIVE, Urine RBC (Auto) NEGATIVE, Urine RBC NONE, Urine WBC NONE, Urine Squamous Epithelial Cells RARE, Urine Crystals NONE, Urine Bacteria TRACE, Urine Casts PRESENT, Urine Hyaline Casts 10-25H, Urine Mucus NEGATIVE, Urine Culture Indicated NO, Troponin I 0.065H 04/19/20 19:54: Glucometer 171H 04/20/20 04:20: White Blood Count 8.5, Red Blood Count 4.67, Hemoglobin 14.3, Hematocrit 42, Mean Corpuscular Volume 91, Mean Corpuscular Hemoglobin 31, Mean Corpuscular Hemoglobin Concent 34, Red Cell Distribution Width 13.0, Platelet Count 147, Mean Platelet Volume 10.7, Sodium Level 138, Potassium Level 4.1, Chloride Level 100, Carbon Dioxide Level 25, Anion Gap 13, Blood Urea Nitrogen 31H, Creatinine 1.03, Estimat Glomerular Filtration Rate > 60, BUN/Creatinine Ratio 30, Glucose Level 125H, Calcium Level 9.7, Magnesium Level 1.9, Triglycerides Level 111, Cholesterol Level 141, LDL Cholesterol Direct 99, VLDL Cholesterol 22, HDL Cholesterol 25L, Thyroid Stimulating Hormone (TSH) 0.85 04/20/20 09:45: Glucometer 186H Laboratory Tests 04/19/20 10:52 04/20/20 04:20 A/P: Assessment: Questionable syncopal episode Minimally elevated troponin, probably type 2 FL due to hypertension Hypertension Poor balance, intermittent noncompliance with supportive devices such as cane/walker, recent falls at home Echocardiogram of October 24, 2017 showed concentric hypertrophy. LVEF 50-55%. RVSP WNL s/p TAVR at on 08/07/[address] Valente CAD: H/O CECY to the LAD at on 07/10/[address] Roman Carotid ultrasound 04/2019 which showed mild bilateral disease. H/o right carotid stent. PAD: Peripheral angiogram was done on 12/03/[address] Palafox which demonstrated moderate calcified disease segment in the right common iliac artery. Very tor tuous right distal common iliac artery and external iliac artery. Small AV fistula noted in the distal right SFA filling deep saphenous vein. Mild diffuse disease in the right SFA. No significant disease in the right popliteal artery. At least moderate calcification is noted in the right SFA and popliteal artery. Severe stenosis in the right TP trunk with heavy calcification. Single-vessel runoff below the knee which is an anterior tibial artery which is occluded in the distal segment. Diffusely diseased severe deep peroneal and posterior tibial artery with heavy calcification with no contribution to flow to the foot. In the left lower extremity there was no significant disease in the left common and external iliac artery. Severe ostial stenosis of the left internal iliac artery. Moderate calcified stenosis is noted in the left common femoral artery. Moderate to severe stenosis in the proximal left SFA. Moderate disease calcified in the mid, distal SFA and proximal popliteal artery. Moderate to severe calcified is disease segment in the distal left popliteal artery. 1 ve ssel runoff below the left knee which is very likely a posterior tibial artery with subtotal occlusion in the proximal segment. Total occlusion of the deep peroneal and anterior tibial artery. Last HELADIO done on 05/07/[address] Palafox which showed severely abnormal bilateral HELADIO and TBI. Right HELADIO 0.46, TBI 0.25. Left HELADIO 0.45, TBI 0.35. No resting pain or nonhealing ulcers with single-vessel runoff bilaterally. Managed conservatively Hyperlipidemia Hypertension Per CT Lumbar spin of Apr 19, 2020: Acute predominantly superior endplate T12 fracture without retropulsion results in 20% stature loss at its middle 3rd and there is mild paraspinal hemorrhage or edema. Fracture lines do extend into the posterior one third of this vertebral body. No involvement of the posterior elements or neural arch. The remaining levels nonacute with lower lumbar spondylosis and facet arthrosis resulting in severe stenosis at the L4-L5 level as a chronic finding. Plan: No bradycardia or arrhythmias seen on tele thus far - advise ILR implant Echocardiogram to eval structure Monitor lab closely Replace electrolytes as indicated BP not well controlled - adjust antihypertensive regimen SHERRI PURDY Apr 20, 2020 11:19
--- NOTE | 2020-04-20 11:59 | NUR ---
CM/SS finalized discharge. Plan: Patient is discharging home today with home health after loop recorder is placed. Home Health: PRIYANKA Ontiveros spoke with the patient and the patient reports he wanted his family to decided. Weston called family and reported he used [facility] in the past and would like to continue care with them. This sw contacted Kim at agency and made referral for PT, OT, and NS. No further needs at this time.
[2020-04-20 12:00] VITALS: BP 165/70
--- NOTE | 2020-04-20 14:08 | NUR ---
CARE AND REPORT GIVEN TO PRIYANKA OTERO AT THIS TIME.
--- NOTE | 2020-04-20 15:21 | Occupational Therapy Eval ---
OT Evaluation-General/PLF Medical Diagnosis Admission Date Apr 19, 2020 at 14:48 Medical Diagnosis: T12 fx, A-fib Onset Date: Apr 19, 2020 Therapy Diagnosis Therapy Diagnosis: Weakness, decreased ADL skills Height/Weight Height (Feet): 5 Height (Inches): 10.00 Weight (Pounds): 215 Weight (Ounces): 0.0 Precautions Precautions/Isolations: Fall Prevention, Standard Precautions Weight Bear Status Weight Bearing Restriction: Weight Bearing/Tolerated Back brace on when up. Referral Physician: Sebastián Referral Reason: Activity Tolerance, Self Care, Evaluation/Treatment, Strengthening/ROM Medical History Pertinent Medical History: CAD, DM, Heart Failure, HTN, [place] Additional Medical History Rotator cuff surgery bilaterally, knee replacement, valve replacement, severe stenosis, dementia Current History Pt. fell at home. Pt. is unsure if he lost conscienceness or not. He had severe back pain and came to ER. Found to have fx at T12. Chart states that pt. to have back brace, but orders and pathway for this unclear. OT able to provide brace from hospital's central supply. Reviewed History: Yes Social History Home: Single Level Current Living Status: Spouse Entry Into Home: Stairs With Railing Steps Into Home: 2 ADL-Prior Level of Function SCALE: Activities may be completed with or without assistive devices. 0-Fdtuocsamq-yqcsoqg completes the activity by him/herself with no assistance from a helper. 5-Set-up or Clean-up Assistance-helper sets up or cleans up; patient completes activity. [place] assists only prior to or following the activity. 4-Supervision or Touching Assistance-helper provides verbal cues and/or touching/steadying and/or contact guard assistance as patient completes activity. Assistance may be provided throughout the activity or intermittently. 3-Partial/Moderate Assistance-helper does LESS THAN HALF the effort. [place] lifts, holds or supports trunk or limbs, but provides less than half the effort. 2-Substantial/Maximal Assistance-helper does MORE THAN HALF the effort. [place] lifts or holds trunk or limbs and provides more than half the effort. 3-Gwnczorsf-taksgh does ALL the effort. Patient does none of the effort to complete the activity. Or, the assistance of 2 or more helpers is required for the patient to complete the activity. If activity was not attempted, code reason: 7-Patient Refused. 9-Not Applicable-not attempted and the patient did not perform the activity before the current illness, exacerbation or injury. 10-Not Attempted due to Environmental Limitations-(lack of equipment, weather restraints, etc.). 88-Not Attempted due to Medical Conditions or Safety Concerns. ADL PLOF Comments Pt. verbalizes that he was able to bathe/dress independently. Daughter present and states that pt. uses a cane, but is supposed to use his walker. Self Care: Independent Functional Cognition: Unknown DME/Equipment: Bath Chair, Tub/Shower DME/Equipment Comments Pt. has walker and cane. Drive Self: No OT Current Status Subjective Pt. reports that back is sore, but does not state pain level. Nursing on top of this. OT provided back brace for comfort. Appearance Pt. up in chair. Daughter at his side. Pt. alert and willing to work with OT. Mental Status/Objective Patient Orientation: Person Current Hand Dominance: Right Upper Extremity ROM WFL Upper Extremity Strength NT due to fx in back. ADL-Treatment Shower/Bathe Self (QC): 3 (Min assist for sit-stand and min assist to balance pt. while he cleanses sophia areas.) Lower Body Dressing (QC): 3 (Pt. able to unzip pants in stance, but requires assistance to unbutton. Pt. able to pull down pants, and then sit back down. Unable to doff over feet. OT did this for him.) On/Off Footwear (QC): 2 Other Treatments Pt. up in chair. Agrees to work with OT. Pt. completes sponge bath while seated in chair. Pt. encouraged to not bend over, as back brace had not arrived yet. After ADLs, therapy department was able to obtain brace from Central supply, and fit to the pt. Pt. verbalizes that brace feels good. All needs met. Education OT Patient Education: Correct positioning, Modified ADL techniques, Progress toward Goal/Update tx plan, Purpose of tx/functional activities, Reviewed precautions, Rehab process, Transfer techniques Teaching Recipient: Patient Teaching Methods: Demonstration Response to Teaching: Verbalize Understanding, Return Demonstration OT [facility] Goals Drilling Engineering Manager Goals Time Frame: May 04, 2020 Eating (QC): 6 Oral Hygiene (QC): 5 Toileting Hygiene (QC): 4 Shower/Bathe Self (QC): 4 Upper Body Dressing (QC): 5 Lower Body Dressing (QC): 4 On/Off Footwear (QC): 4 Additional Goals: 1-Demonstrate ADL Tasks, 2-Verbalize Understanding, 3- ImproveStrength/Romy 1=Demonstrate adherence to instructed precautions during ADL tasks. 2=Patient will verbalize/demonstrate understanding of assistive devic es/modifications for ADL. 3=Patient will improve strength/tolerance for activity to enable patient to perform ADL's. OT Education/Plan Problem List/Assessment Assessment: Decreased Activ Tolerance, Dependent Transfers, Impaired I ADL's, Impaired Self-Care Skills Discharge Recommendations Plan/Recommendations: Continue POC Therapy Discharge Recommendati: Home & Family, Post Acute OT Equpiment Recommendations-D/C: Hip Kit Treatment Plan/Plan of Care Treatment,Training & Education: Yes Patient would benefit from OT for education, treatment and training to promote independence in ADL's, mobility, safety and/or upper extremity function for ADL's. Plan of Care: ADL Retraining, Functional Mobility, UE Funct Exercise/Act Treatment Duration: May 04, 2020 Frequency: 5 times per week Estimated Hrs Per Day: .5 hour per day Agreement: Yes Rehab Potential: Fair Time/GCodes Start Time: 13:10 Stop Time: 13:45 Total Time Billed (hr/min): 35 Billed Treatment Time 1, EVM x 15minutes, ADL x 20minutes LILIA VEGAS OT Apr 20, 2020 15:21
[2020-04-20] MEDS ORDERED: amLODIPine 5 MG (NORVASC) TAB PO NR ×2 (15:30→16:30)
[2020-04-20] MEDS ORDERED: LIDOCAINE 1% INJ 20 ML 20 ML VIAL ONE (15:53)
[2020-04-20 16:25] VITALS: BP 198/86
--- NOTE | 2020-04-20 16:38 | Progress Note - Cardiology ---
Cardiology SOAP Progress Note Subjective: No syncope since admission No cp or palp or shortness of breath Mild gen malaise No n/v/d Objective: I&O/Vital Signs 04/20/20 04/20/20 04/20/20 04/20/20 07:00 07:11 08:00 09:00 Temp 35.7 Pulse 71 70 Resp 18 B/P (MAP) 171/95 (120) Pulse Ox 92 92 O2 Delivery Room Air Room Air Room Air 04/20/20 04/20/20 04/20/20 12:00 12:42 16:25 Temp 35.8 36.4 Pulse 72 72 71 Resp 20 20 B/P (MAP) 165/70 (101) 198/86 (123) Pulse Ox 93 93 O2 Delivery Room Air Room Air 04/20/20 00:00 Intake Total 360 ml Output Total 350 ml Balance 10 ml Weight (Pounds): 215 Weight (Ounces): 0.0 Weight (Calculated Kilograms): 97.325056 Constitutional: AAO x 3, well-developed, well-nourished Cardiovascular: regular rate-rhythm; No JVD; S1 and S2, systolic murmur Gastrointestional: No tender; soft, round, audible bowel sounds Extremities: other (mild bilat LE swelling) Neurologic/Psychiatric: grossly intact (moves all extremities) Skin: No rash on exposed areas, No ulcerations on exposed areas Results/Procedures: Labs Laboratory Tests 04/19/20 19:54: Glucometer 171H 04/20/20 04:20: White Blood Count 8.5, Red Blood Count 4.67, Hemoglobin 14.3, Hematocrit 42, Mean Corpuscular Volume 91, Mean Corpuscular Hemoglobin 31, Mean Corpuscular Hemoglobin Concent 34, Red Cell Distribution Width 13.0, Platelet Count 147, Mean Platelet Volume 10.7, Sodium Level 138, Potassium Level 4.1, Chloride Level 100, Carbon Dioxide Level 25, Anion Gap 13, Blood Urea Nitrogen 31H, Creatinine 1.03, Estimat Glomerular Filtration Rate > 60, BUN/Creatinine Ratio 30, Glucose Level 125H, Calcium Level 9.7, Magnesium Level 1.9, Triglycerides Level 111, Cholesterol Level 141, LDL Cholesterol Direct 99, VLDL Cholesterol 22, HDL Cholesterol 25L, Thyroid Stimulating Hormone (TSH) 0.85 04/20/20 09:45: Glucometer 186H Laboratory Tests 04/19/20 10:52 04/20/20 04:20 A/P: Assessment: Questionable syncopal episode Minimally elevated troponin, probably type 2 [place] due to uncontrolled hypertension Hypertension Poor balance, intermittent noncompliance with supportive devices such as cane/walker, recent falls at home Echocardiogram of October 24, 2017 showed concentric hypertrophy. LVEF 50-55%. RVSP WNL s/p TAVR at on 08/07/[address] Valente CAD: H/O CECY to the LAD at on 07/10/[address] Roman Carotid ultrasound 04/2019 which showed mild bilateral disease. H/o right carotid stent. PAD: Peripheral angiogram was done on 12/03/[address] Palafox which demonstrated moderate calcified disease segment in the right common iliac artery. Very tortuous right distal common iliac artery and external iliac artery. Small AV fistula noted in the distal right SFA filling deep saphenous vein. Mild diffuse disease in the right SFA. No significant disease in the right popliteal artery. At least moderate calcification is noted in the right SFA and popliteal artery. Severe stenosis in the right TP trunk with heavy calcification. Single-vessel runoff below the knee which is an anterior tibial artery which is occluded in the distal segment. Diffusely diseased severe deep peroneal and posterior tibial artery with heavy calcification with no contribution to flow to the foot. In the left lower extremity there was no significant disease in the left common and external iliac artery. Severe ostial stenosis of the left internal iliac artery. Moderate calcified stenosis is noted in the left common femoral artery. Moderate to severe stenosis in the proximal left SFA. Moderate disease calcified in the mid, distal SFA and proximal popliteal artery. Moderate to severe calcified is disease segment in the distal left popliteal artery. 1 vessel runoff below the left knee which is very likely a posterior tibial artery with subtotal occlusion in the proximal segment. Total occlusion of the deep peroneal and anterior tibial artery. Last HELADIO done on 05/07/[address] Palafox which showed severely abnormal bilateral HELADIO and TBI. Right HELADIO 0.46, TBI 0.25. Left HELADIO 0.45, TBI 0.35. No resting pain or nonhealing ulcers with single-vessel runoff bilaterally. Managed conservatively Hyperlipidemia Hypertension Per CT Lumbar spin of Apr 19, 2020: Acute predominantly superior endplate T12 fracture without retropulsion results in 20% stature loss at its middle 3rd and there is mild paraspinal hemorrhage or edema. Fracture lines do extend into the posterior one third of this vertebral body. No involvement of the posterior elements or neural arch. The remaining levels non acute with lower lumbar spondylosis and facet arthrosis resulting in severe stenosis at the L4-L5 level as a chronic finding. Plan: Sinus irais on tele. D/c beta-dayana No cause for syncope found. ILR implanted after obtaining informed conset Amlodipine added for bp control Continue ASA. Plavix added because of h/o coronary and carotid stenting and considerable PAD Close outpt f/u advised KALLI COURTNEY MD FACP [facility] Apr 20, 2020 16:38
[2020-04-20] MEDS ORDERED: RAMI5CAP65 PO (16:41)
[2020-04-20] MEDS ORDERED: CLOP75TA28 PO (16:41)
[2020-04-20] MEDS ORDERED: AMLO-250 PO (16:41)
[2020-04-20] MEDS ORDERED: LIDOCAINE 1% INJ 20 ML 20 ML VIAL INJ ONE (16:45)
--- NOTE | 2020-04-20 16:48 | D/C HH Face to Face Order ---
D/C Face to Face Orders Reconcile Patient Problems Problems Reviewed?: Yes Instructions for Patient Via [employer], Patient Instructions/FollowUp: Work with Home Health to gain strength and gait. Physician to follow Patient: Matthew Nieto MD Discharge Diet for Home: Dysphagia (Dysphagia II diet level with thin ) Patient Data-Allergies,Ht & Wt Patient Allergies: Coded Allergies: No Known Drug Allergies (Unverified , 06/06/17) Height (Feet): 5 Height (Inches): 10.00 Weight (Pounds): 215 Weight (Ounces): 0.0 Home Health Need/Face to Face Date of Face to Face: Apr 20, 2020 Clinical Findings: Generalized weakness and fatigue, Instability, Muscle weakness, Pain with ambulation (T12 fracture), Unsteady gait I have seen Pt sbrm-zp-[id number]: Yes Discharged To: Home Diagnosis/Conditions: thoracic back pain due to T12 fracture Diabetes Mellitus II peripheral artery disease elevated troponin Patient is Homebound due to: CognItive deficits, Evan fall risk due to inst abilty, Muscle weakness Homebound Status Due to the above stated illness, injury or surgical procedure (medical condition or diagnosis) and associated clinical findings, the patient is homebound because of his/her inability to leave home except with aid of a supportive device and/or person AND leaving the home requires a considerable and taxing effort or is medically contraindicated. Pt req the following assistanc: Walker Home Health Nursing Orders Home Health Services Order: Nursing Services, Lip Of Shank Cutter-Evaluate & Treat, Physical Therapy-Evaluate & Treat Home Health Infusion Therapy Line Start Date: Apr 19, 2020 Therapy Orders Therapy Orders: OT (must have SN or PT order), Physical Therapy Therapy Specific Orders: Eval assistive deivces, Teach strategies/cognitive deficits, Teach enviro modifications/safety, Increase strength/endurance Certify Stmt I certify that this patient is under my care and that I, a nurse practitioner or a physician; a assistant to the vice president working with me, had a face to face encounter that - meets the physician face to face encounter requirements with this patient as dated. MATTHEW NIETO MD Apr 20, 2020 16:48
--- NOTE | 2020-04-20 16:55 | Discharge Summary ---
Discharge Summary Hospital Course Was the Problem List Reviewed?: Yes Problems/Dx: (1) Fracture of T12 vertebra Status: Acute Qualifiers: (2) PAD (peripheral artery disease) (3) Essential (primary) hypertension Status: Chronic (4) Insulin dependent diabetes mellitus Status: Chronic (5) CAD (coronary artery disease) Status: Chronic (6) Dysphagia Status: Acute Qualifiers: Qualified Codes: R13.10 - Dysphagia, unspecified Hospital Course Date of Admission: Apr 19, 2020 at 14:48 Admission Diagnosis : (1) Fracture of T12 vertebra Status: Acute Qualifiers: (2) PAD (peripheral artery disease) (3) Essential (primary) hypertension Status: Chronic (4) Insulin dependent diabetes mellitus Status: Chronic (5) CAD (coronary artery disease) Status: Chronic (6) Dysphagia Family Physician/Provider: Ollie Amor MD Date of Discharge: 04/20/20 Discharge Diagnosis: (1) Fracture of T12 vertebra Status: Acute Qualifiers: (2) PAD (peripheral artery disease) (3) Essential (primary) hypertension Status: Chronic (4) Insulin dependent diabetes mellitus Status: Chronic (5) CAD (coronary artery disease) Status: Chronic (6) Dysphagia Hospital Course: 85 yo M with repeated falls over the last week and back pain that has not improved. He does have some cognitive decline, not well controlled diabetes (due to inconsistent use of insulin (too much or not at all)-though this has improved), decrease in proprioception due to diabetes is also contributing to his offbalance. He does have a cane. Patient was also found to have T12 vertebrae fracture that orthopedics (Dr. Amor) recommended a back brace. CT also showed severe stenosis at L4L5 Troponin was elevated on admission and decision to monitor was made- cardiology is following. Patient deemed stable on 04/20/20 to be discharged to home with home health. He will go home with a TLSO brace and pain medication. Follow up with [facility] in 2 weeks. Labs and Pending Lab Test: Laboratory Tests 04/19/20 19:54: Glucometer 171H 04/20/20 04:20: White Blood Count 8.5, Red Blood Count 4.67, Hemoglobin 14.3, Hematocrit 42, Mean Corpuscular Volume 91, Mean Corpuscular Hemoglobin 31, Mean Corpuscular Hemoglobin Concent 34, Red Cell Distribution Width 13.0, Platelet Count 147, Mean Platelet Volume 10.7, Sodium Level 138, Potassium Level 4.1, Chloride Level 100, Carbon Dioxide Level 25, Anion Gap 13, Blood Urea Nitrogen 31H, Creatinine 1.03, Estimat Glomerular Filtration Rate > 60, BUN/Creatinine Ratio 30, Glucose Level 125H, Mean Blood Glucose [Pending], Hemoglobin A1c [Pending], Calcium Level 9.7, Magnesium Level 1.9, Triglycerides Level 111, Cholesterol Level 141, LDL Cholesterol Direct 99, VLDL Cholesterol 22, HDL Cholesterol 25L, Thyroid Stimulating Hormone (TSH) 0.85 04/20/20 09:45: Glucometer 186H Home Meds Active Ramipril 5 Mg Capsule 5 Mg PO BID Amlodipine Besylate 5 Mg Tablet 5 Mg PO DAILY Clopidogrel (Clopidogrel Bisulfate) 75 Mg Tablet 75 Mg PO DAILY Reported Carvedilol 6.25 Mg Tablet 6.25 Mg PO BID Furosemide 40 Mg Tablet 40 Mg PO DAILY PRN Spironolactone 25 Mg Tablet 25 Mg PO DAILY Lantus Solostar (Insulin Glargine,Hum.rec.anlog) 100 Unit/1 Ml Insuln.pen 35 Units SC HS Humalog Kwikpen (Insulin Lispro) 100 Unit/1 Ml Insuln.pen 20 Units SC TIDAC Aspirin EC (Aspirin) 81 Mg Tablet.dr 81 Mg PO DAILY Daily Multiple Vitamin (Multivitamin) 1 Each Tablet 1 Tab PO DAILY Atorvastatin Calcium 20 Mg Tablet 20 Mg PO HS Cilostazol 100 Mg Tablet 100 Mg PO BID Fish Oil 1,000 mg Capsule ([place] 3 Polyunsat Fatty Acids) 1,000 Mg Cap 1,000 Mg PO DAILY Calcium 600 + Vit D 200 Tablet (Calcium Carbonate/Vitamin D3) 1 Each Tablet 1 Tab PO DAILY Assessment/Pt Instructions Set up with Home Health to increase his odds of staying safe at home. See H/P See Home Health Face to Face. Discharge Planning: >30 minutes discharge planning Discharge Instructions Discharge Diet: ADA Diet (Dysphagia II diet level with thin ) Activity as Tolerated: Yes Pneumonia Vaccine Order Indica: Yes Discharge Physical Examination Vital Signs Vital Signs Date Time Temp Pulse Resp B/P (MAP) Pulse Ox O2 Delivery O2 Flow Rate FiO2 04/20/20 16:25 36.4 71 20 198/86 (123) 93 Room Air 04/19/20 17:12 0.00 General Appearance: No Apparent Distress, WD/WN HEENT: PERRL/EOMI Respiratory: Chest Non Tender, Lungs Clear Cardiovascular: Regular Rate, Rhythm, No Edema Allergies: Coded Allergies: No Known Drug Allergies (Unverified , 06/06/17) Discharge Summary Date of Admission Apr 19, 2020 at 14:48 Date of Discharge March Discharge Diagnosis (1) Fracture of T12 vertebra Status: Acute Qualifiers: (2) PAD (peripheral artery disease) (3) Essential (primary) hypertension Status: Chronic (4) Insulin dependent diabetes mellitus Status: Chronic Assessment & Plan: continue home regimen (5) CAD (coronary artery disease) Status: Chronic (6) Dysphagia Status: Acute Qualifiers: Qualified Codes: R13.10 - Dysphagia, unspecified (7) Afib Clinical Quality Measures DVT/VTE Risk/Contraindication: Risk Factor Score Per Nursin RFS Level Per Nursing on Admit: 4+=Very High HALI NIETO MD Apr 20, 2020 16:55
[2020-04-20 18:38] VITALS: BP 198/86
[2020-04-20] MEDS ORDERED: RAMIPRIL 5 MG (ALTACE) CAP PO SCH (21:00)
--- NOTE | 2020-04-20 21:19 | OPERATIVE REPORT ---
DATE OF SERVICE: 04/20/2020 PREOPERATIVE DIAGNOSIS: Syncope. POSTOPERATIVE DIAGNOSIS: Syncope. PROCEDURE: Implantable loop recorder implantation. DESCRIPTION OF PROCEDURE: Implantable loop recorder implantation was carried out after having obtained an informed consent. The left prepectoral area was prepared and draped in the usual sterile fashion. The tools provided with the [employer] Reveal LINQ device were used to make a subcutaneous pocket anterior to the fourth intercostal space into which the implantable loop recorder was placed and the wound edges were closed using Dermabond and Steri-Strips. He tolerated the procedure well. Job ID: [id number] DocumentID: [id number] Dictated Date: 04/20/2020 16:49:34 Route Rider Supervisor Date: 04/20/2020 21:17:57 Dictated By: KALLI COURTNEY MD, MA, FACP, FACC,
[2020-04-21] MEDS ORDERED: amLODIPine 5 MG (NORVASC) TAB PO SCH ×2 (09:00)
[2020-04-21] MEDS ORDERED: ASPIRIN E.C. 81 MG (ECOTRIN) TAB PO SCH (09:00)
[2020-04-21] MEDS ORDERED: SPIRONOLACTONE 25 MG (ALDACTONE) TAB PO SCH (09:00)
== END 2020-04-20 18:42 | disposition home health service (06) | DRG 260 ==
LOC: EDUNIT# 10:25 → ER 10:26 → 4TH 14:48
PROVIDERS: ADMIT Family Medicine; ATTEND Family Medicine
PROC: 0JH602Z Insertion of Monitoring Device into Chest Subcutaneous Tissue and Fascia, Open Approach (ICD-10-PCS; principal; 2020-04-20)
DX: I11.0 Hypertensive heart disease with heart failure (principal); I21.A1 Myocardial infarction type 2; S22.088A Other fracture of T11-T12 vertebra, initial encounter for closed fracture; R55 Syncope and collapse; W18.30XA Fall on same level, unspecified, initial encounter; R13.10 Dysphagia, unspecified; R41.81 Age-related cognitive decline; Z79.82 Long term (current) use of aspirin; I50.9 Heart failure, unspecified; I25.5 Ischemic cardiomyopathy; I25.10 Atherosclerotic heart disease of native coronary artery without angina pectoris; I25.2 Old myocardial infarction; E78.00 Pure hypercholesterolemia, unspecified; E11.51 Type 2 diabetes mellitus with diabetic peripheral angiopathy without gangrene; Z79.4 Long term (current) use of insulin; M48.061 Spinal stenosis, lumbar region without neurogenic claudication; I48.91 Unspecified atrial fibrillation
CPT/HCPCS: 36415; 70450; 72125; 72131; 72192; 80048; 80053; 80061; 81000; 82962; 83036; 83735; 84443; 84484; 85025; 85027; 93005; 93041; 93306; 94760

== ENCOUNTER → 2021-01-31 | Outpatient (CLI) | payer MEDICARE, BC ==
[~2021-01-31] VITALS: Ht 175 cm; Wt 91.0 kg
[~2021-01-31] MED LIST changes: +AMLO-250 PO; +REGADENOSON 0.4 MG/5 ML SYR (LEXISCAN) IV ONE
[2021-01-31] MEDS: CATHETER FLUSH 10 ML SYR IV PRN ×2 (07:33→09:03)
[2021-01-31 09:02] VITALS: BP 155/79
--- NOTE | 2021-01-31 17:40 | STRESS TEST ---
DATE OF SERVICE: 01/31/2021 RESTING AND POST REGADENOSON TECHNETIUM-99M TETROFOSMIN SPECT CT IMAGING ORDERING PHYSICIAN: Dr. Yung. CLINICAL DIAGNOSES: Coronary artery disease. Baseline images were carried out after injection of 10.33 mCi of technetium-99m Tetrofosmin. This was followed by 0.4 mg regadenoson and 30.4 mCi of technetium-99m Tetrofosmin for stress imaging. The electrocardiogram showed sinus rhythm at baseline. It did not change significantly with the regadenoson infusion. Isolated premature ventricular contractions were seen. The patient tolerated the procedure well. Review of images at rest and following stress does not indicate any distinct perfusion defects consistent with significant myocardial ischemia or infarction. It appears to be mild to moderate cardiomegaly. Gated images show mild to moderate global hypokinesis and left ventricular ejection fraction is calculated to be 43%. Left ventricular end diastolic volume is 125 mL. TID is absent (0.82). CONCLUSIONS: 1. Mild to moderate cardiomegaly with mild to moderate global hypokinesis and left ventricular ejection fraction of 43%. 2. No evidence of any significant myocardial ischemia or infarction. Job ID: [id number] DocumentID: [id number] Dictated Date: 01/31/2021 15:20:12 Lithoplate Maker Date: 01/31/2021 17:40:15 Dictated By: KALLI YUNG MD, MA, FACP, FACC, MTDD
== END ==
LOC: CARD 07:45
PROVIDERS: ATTEND Internal Medicine Cardiovascular Disease
DX: I25.10 Atherosclerotic heart disease of native coronary artery without angina pectoris (principal)
CPT/HCPCS: 78452; 93017; A9502

== ENCOUNTER → 2021-02-01 | Outpatient (CLI) | payer MEDICARE, BC ==
[~2021-02-01] MED LIST changes: -REGADENOSON 0.4 MG/5 ML SYR (LEXISCAN) IV ONE
== END ==
LOC: CARD 09:03
PROVIDERS: ATTEND Internal Medicine Cardiovascular Disease
DX: I51.7 Cardiomegaly (principal); R55 Syncope and collapse
CPT/HCPCS: 93306

== ENCOUNTER 2021-08-13 14:26 | Inpatient (IN) | payer MEDICARE, BC ==
[~2021-08-13] VITALS: Ht 177.8 cm; Wt 97.5 kg
[2021-08-13 16:00] VITALS: BP 111/58
[2021-08-13] MEDS ORDERED: ONDANSETRON 4 MG (ZOFRAN) ORAL DISSOLVE TAB PO PRN (16:00)
[2021-08-13] MEDS ORDERED: polyethylene glycoL POWDER 17 GM (MIRALAX) PACK PO PRN (16:00)
[2021-08-13] MEDS ORDERED: ACETAMINOPHEN 325 MG TABLET PO PRN (16:00)
[2021-08-13] MEDS ORDERED: ONDANSETRON 4 MG/2 ML (SDV) Z0FRAN IV PRN (16:00)
[2021-08-13] MEDS ORDERED: ANTACID SUSP 30 ML UDC (MYLANTA) PO PRN (16:00)
[2021-08-13] MEDS ORDERED: MELATONIN 3 MG TABLET PO PRN (16:00)
[2021-08-13] MEDS: ENOXAPARIN 40 MG/0.4 ML (LOVENOX) SYR SC SCH (16:28)
[2021-08-13] MEDS: inSUlin ASPART (NovoLOG) 1 UNIT/0.01 ML (CHARGE PER UNIT) SC SCH ×2 (16:29→21:00)
[2021-08-13 16:47] LABS: CALCIUM 9.5 MG/DL (8.5-10.1)
[2021-08-13 16:52] LABS: CREATININE SERUM 0.96 MG/DL (0.60-1.30)
[2021-08-13 16:54] LABS: MAGNESIUM 1.5 MG/DL (1.6-2.4)
[2021-08-13] MEDS ORDERED: MAGNESIUM 2 GM/50 ML IVPB 50 ML IV ONE (17:00)
[2021-08-13] MEDS: MAGNESIUM 1 GM/100 ML IVPB 100 ML IV SCH ×4 (18:19→19:58)
[2021-08-13 19:35] VITALS: BP 153/68
[2021-08-14] VITALS (13 sets, daily range): BP systolic 96–169; BP diastolic 53–92
[2021-08-14] MEDS: inSUlin ASPART (NovoLOG) 1 UNIT/0.01 ML (CHARGE PER UNIT) SC SCH ×6 (05:11→20:53)
[2021-08-14 05:31] LABS: BASOPHILS % (AUTO) 0 % (0-10); EOSINOPHILS % (AUTO) 0 % (0-10); HEMATOCRIT 31 % (40-54); HEMOGLOBIN 10.6 g/dL (13.3-17.7); LYMPHOCYTES # (AUTO) 1.4 10^3/uL (1.0-4.0); LYMPHOCYTES % (AUTO) 11 % (12-44); MEAN CORPUSCULAR HEMOGLOBIN 30 pg (25-34); MEAN CORPUSCULAR HGB CONC 34 g/dL (32-36); MEAN CORPUSCULAR VOLUME 90 fL (80-99); MEAN PLATELET VOLUME 9.5 fL (9.0-12.2); MONOCYTES # (AUTO) 1.1 10^3/uL (0.0-1.0); MONOCYTES % (AUTO) 8 % (0-12); NEUTROPHILS # (AUTO) 10.8 10^3/uL (1.8-7.8); NEUTROPHILS % (AUTO) 80 % (42-75); PLATELET COUNT 150 10^3/uL (130-400); WHITE BLOOD COUNT 13.4 10^3/uL (4.3-11.0)
[2021-08-14 05:50] LABS: CALCIUM 9.5 MG/DL (8.5-10.1)
[2021-08-14] MEDS: POTASSIUM CL 10MEQ/50ML IVPB 50 ML IV SCH (05:52)
[2021-08-14] MEDS: KCL 20 MEQ TAB (K-DUR) PO SCH (05:52)
[2021-08-14 05:54] LABS: CREATININE SERUM 0.98 MG/DL (0.60-1.30)
[2021-08-14] MEDS: MAGNESIUM 1 GM/100 ML IVPB 100 ML IV SCH (05:58)
[2021-08-14] MEDS: cefTRIAXone 1 GM PRE-MIX 50 ML IV SCH (08:30)
--- NOTE | 2021-08-14 10:41 | Physical Therapy Evaluation ---
PT Evaluation-General Medical Diagnosis Admission Date Aug 13, 2021 at 15:39 Medical Diagnosis: sepsis/UTI Onset Date: Aug 13, 2021 Therapy Diagnosis Therapy Diagnosis: severe debility/weakness Height/Weight Height (Feet): 5 Height (Inches): 10.00 Weight (Pounds): 215 Weight (Ounces): 0.0 Precautions Precautions/Isolations: Fall Prevention, Standard Precautions Referral Physician: Cathy Reason for Referral: Evaluation/Treatment Medical History Pertinent Medical History: CAD, DM, Dementia, Heart Failure, HTN, [place], Neuropathy, PVD Current History Transfer from OSH Reviewed History: Yes Social History Home: Single Level Current Living Status: Spouse Prior Prior Level of Function SCALE: Activities may be completed with or without assistive devices. 7-Yazrekkmdw-zkodjro completes the activity by him/herself with no assistance from a helper. 5-Set-up or Clean-up Assistance-helper sets up or cleans up; patient completes activity. Carbon assists only prior to or following the activity. 4-Supervision or Touching Assistance-helper provides verbal cues and/or touching/steadying and/or contact guard assistance as patient completes activity. Assistance may be provided throughout the activity or intermittently. 3-Partial/Moderate Assistance-helper does LESS THAN HALF the effort. Carbon lifts, holds or supports trunk or limbs, but provides less than half the effort. 2-Substantial/Maximal Assistance-helper does MORE THAN HALF the effort. Carbon lifts or holds trunk or limbs and provides more than half the effort. 0-Wpmutrypa-ukyake does ALL the effort. Patient does none of the effort to complete the activity. Or, the assistance of 2 or more helpers is required for the patient to complete the activity. If activity was not attempted, code reason: 7-Patient Refused. 9-Not Applicable-not attempted and the patient did not perform the activity before the current illness, exacerbation or injury. 10-Not Attempted due to Environmental Limitations-(lack of equipment, weather restraints, etc.). 88-Not Attempted due to Medical Conditions or Safety Concerns. Bed Mobility: 4 Transfers (B,C,W/C): 4 Gait: 4 Indoor Mobility (Ambulation): Needed Some Help Prior Devices Use: Walker PT Evaluation-Current Subjective Patient very confused. Does agree to PT. Objective Patient Orientation: Confused Attachments: Iraheta Catheter ROM/Strength ROM Lower Extremities bilateral LE WFL Strength Lower Extremities 3/5 grossly bilateral LE Integumentary/Posture Bladder Incontinence: Iraheta Cath Posture kyphotic and trunk flexed posture Neuromuscular (Tone, Coordination, Reflexes) diminished coordination Sensory Vision: Functional Hearing: Impaired Transfers Lying to Sitting/Side of Bed(Q: 4 Sit to Stand (QC): 2 Chair/Wty-bi-Ffaxp Xfer(QC): 2 Gait Does the Patient Walk?: Yes Mode of Locomotion: Walk Anticipated Mode of Locomotion: Walk Walk 10 feet (QC): 2 Walk 50 ft with 2 Turns(QC): 88 Walk 150 ft (QC): 88 Distance: 10' Gait Assistive Device: FWW Comments/Gait Description PT assist for body placement in FWW with patient extending UE's pushing FWW too far in front. Balance Sitting Static: Fair Sitting Dynamic: Fair Standing Static: Poor Standing Dynamic: Poor Assessment/Needs Patient severely debilitated and confused with diminished coordination and ability to follow direction. Patient will benefit from skilled PT to address functional strength and mobility to improve current LOF. Rehab Potential: Guarded PT Yarn Finisher Goals Yarn Finisher Goals PT Fpc Goals Time Frame: September 02, 2021 Roll Left & Right (QC): 6 Sit to Lying (QC): 6 Lying-Sitting on Side/Bed(QC): 6 Sit to Stand (QC): 6 Chair/Mvk-qv-Rflyy Xfer(QC): 6 Walk 10 feet (QC): 4 Walk 50ft with 2 Turns (QC): 4 PT Plan Problem List Problem List: Activity Tolerance, Functional Strength, Safety, Balance, Gait, Transfer, Bed Mobility Treatment/Plan Treatment Plan: Continue Plan of Care Treatment Plan: Bed Mobility, Education, Functional Activity Romy, Functional Strength, Gait, Safety, Therapeutic Exercise, Transfers Treatment Duration: September 02, 2021 Frequency: 6 times per week Estimated Hrs Per Day: .25 hour per day Time/GCodes Time In: 1013 Time Out: 1029 Total Billed Treatment Time: 16 Total Billed Treatment 1 visit EVMod 16 min OSCAR SR PT Aug 14, 2021 10:41
[2021-08-14] MEDS ORDERED: MULT-26 PO (10:53)
[2021-08-14] MEDS ORDERED: APIX2.5T PO (10:53)
--- NOTE | 2021-08-14 10:57 | Occupational Therapy Eval ---
OT Evaluation-General/PLF Medical Diagnosis Admission Date Aug 13, 2021 at 15:39 Medical Diagnosis: sepsis/UTI Onset Date: Aug 13, 2021 Therapy Diagnosis Therapy Diagnosis: reduced adl status, cognition, debiliaty/weakness Height/Weight Height (Feet): 5 Height (Inches): 10.00 Weight (Pounds): 215 Weight (Ounces): 0.0 Precautions Precautions/Isolations: Fall Prevention, Standard Precautions Referral Physician: Cathy Referral Reason: Evaluation/Treatment Medical History Pertinent Medical History: CAD, DM, Dementia, Heart Failure, HTN, PA, Neurop athy, PVD Current History Pt transferred from [facility]. Diagnosed with urosepsis upon arrival. Confused, unable to give any information on Prior level. Reviewed History: Yes Social History Home: Single Level Current Living Status: Spouse ADL-Prior Level of Function SCALE: Activities may be completed with or without assistive devices. 9-Ihlunupdlu-apsctwx completes the activity by him/herself with no assistance from a helper. 5-Set-up or Clean-up Assistance-helper sets up or cleans up; patient completes activity. Ridge assists only prior to or following the activity. 4-Supervision or Touching Assistance-helper provides verbal cues and/or touching/steadying and/or contact guard assistance as patient completes activity. Assistance may be provided throughout the activity or intermittently. 3-Partial/Moderate Assistance-helper does LESS THAN HALF the effort. Ridge lifts, holds or supports trunk or limbs, but provides less than half the effort. 2-Substantial/Maximal Assistance-helper does MORE THAN HALF the effort. Ridge lifts or holds trunk or limbs and provides more than half the effort. 9-Bkjtgrqhf-jkhgvy does ALL the effort. Patient does none of the effort to complete the activity. Or, the assistance of 2 or more helpers is required for the patient to complete the activity. If activity was not attempted, code reason: 7-Patient Refused. 9-Not Applicable-not attempted and the patient did not perform the activity before the current illness, exacerbation or injury. 10-Not Attempted due to Environmental Limitations-(lack of equipment, weather restraints, etc.). 88-Not Attempted due to Medical Conditions or Safety Concerns. Self Care: Unknown Functional Cognition: Unknown OT Current Status Subjective Pt confused, difficulty following directions. When asked about pain he reports " I don't know." Appearance Pt left sitting in recliner, all needs within reach, JUNIOR ESTIMATOR in room. Mental Status/Objective Patient Orientation: Person, Confused Attachments: Lou Catheter, Telemetry Current Upper Extremity ROM Unable to follow commands ADL-Treatment Lower Body Dressing (QC): 1 (per clinical judgment) On/Off Footwear (QC): 1 Toileting Hygiene (QC): 1 (lou catheter) Pt up with Physical therapist at OT arrival. He appears debilitated and confused with difficulty following directions. Pt unable to take any further steps, commode placed behind him by OT. Repetition of cues for safety. Pt then performed stand pivot transfer to recliner with Mod-max a. Cues for hand placement and ensuring chair is behind him before sitting. While standing, blood observed on floor. With investigation, it was found to be coming from penis and pulling of catheter. Poor initiation/attempt to clean self. Requires max a for thorough clean. Dependent to don new socks. Education OT Patient Education: Correct positioning, Progress toward Goal/Update tx plan, Purpose of tx/functional activities, Reviewed precautions, Safety issues, Transfer techniques Teaching Recipient: Patient Teaching Methods: Discussion Response to Teaching: Unable to Return Demonstration, Reinforcement Needed OT Molder Floor Goals Molder Floor Goals Time Frame: Aug 26, 2021 Eating (QC): 5 Oral Hygiene (QC): 5 Toileting Hygiene (QC): 4 Shower/Bathe Self (QC): 4 Upper Body Dressing (QC): 4 Lower Body Dressing (QC): 4 On/Off Footwear (QC): 4 1=Demonstrate adherence to instructed precautions during ADL tasks. 2=Patient will verbalize/demonstrate understanding of assistive devices/modifications for ADL. 3=Patient will improve strength/tolerance for activity to enable patient to perform ADL's. OT Education/Plan Problem List/Assessment Assessment: Decreased Activ Tolerance, Decreased Safety Aware, Decreased UE Strength, Impaired Cognition, Impaired Funct Balance, Impaired Self-Care Skills, Restricted Funct UE ROM Discharge Recommendations Plan/Recommendations: Continue POC Therapy Discharge Recommendati: Post Acute OT Target Placement ongoing assessment warranted Treatment Plan/Plan of Care Patient would benefit from OT for education, treatment and training to promote independence in ADL's, mobility, safety and/or upper extremity function for ADL's. Plan of Care: ADL Retraining, Cognitive Retraining, Functional Mobility, Group Exercise/Act as Ind, UE Funct Exercise/Act Treatment Duration: Aug 26, 2021 Frequency: 3 times per week (3-5x/week) Estimated Hrs Per Day: .25 hour per day Rehab Potential: Guarded Time/GCodes Start Time: 10:24 Stop Time: 10:35 Total Time Billed (hr/min): 11 Billed Treatment Time 1 visit Patsy Eldridge OT Aug 14, 2021 10:57
[2021-08-14] MEDS ORDERED: RAMI5CAP65 PO (10:58)
[2021-08-14] MEDS ORDERED: CARV6.252 PO (10:58)
[2021-08-14] MEDS ORDERED: DILT180C48 PO (10:59)
[2021-08-14] MEDS ORDERED: ACET-2267 PO (11:17)
[2021-08-14] MEDS ORDERED: CALC-823 PO (11:18)
[2021-08-14] MEDS ORDERED: ASPI-999 PO (11:18)
[2021-08-14] MEDS ORDERED: LOPE-134 PO (11:19)
[2021-08-14] MEDS ORDERED: INSULIN LISPRO 10 UNIT SC SCH (12:00)
[2021-08-14] MEDS ORDERED: ACETAMINOPHEN 500 MG TAB (TYLENOL) PO PRN (12:00)
--- NOTE | 2021-08-14 12:02 | History & Physical-Hospitalist ---
History of Present Illness HPI/Chief Complaint Pt is an 86yoCM with a PMH of a fib, HLD, HTN, IDDMII who presented to outside ER due to confusion. He was found to be septic from a UTI there and transferred here for admission. I spoke with his daughter briefly who states he was very confused yesterday but had not been by to see him today but heard he remained confused. On my exam he was not able to tell me much of what brought him here but that he felt better. He was able to tell me about his daughter who works here and about why his nickname was Maciej. 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 Source: patient Date Seen 08/14/21 Time Seen by a Provider: 11:54 Attending Physician Ingris Morgan MD PCP Tanvi Maxwell DO Referring Physician Date of Admission Aug 13, 2021 at 15:39 Home Medications & Allergies Home Medications Reviewed patient Home Medication Reconciliation performed by pharmacy medication reconciliations er medical technician and/or nursing. Patients Allergies have been reviewed. Allergies Allergies Coded Allergies No Known Drug Allergies (Unverified06/06/17) Past Rrcrepq-Yppcty-Bzekbf Hx Patient Social History Marrital Status: Employed/Student: retired Tobacco Use?: No Smoking Status: Unknown if Ever Smoked Use of E-Cig and/or Vaping dev: No Substance use?: No Alcohol Use?: No Pt feels they are or have been: No Immunizations Up To Date Tetanus Booster (TDap): More Than 5 Years Hepatitis A: No Hepatitis B: No PED Vaccines UTD: Yes Seasonal Allergies Seasonal Allergies: No Current Status Advance Directives: No Communicates: Verbally Primary Language: Montenegrin Preferred Spoken Language: Montenegrin Is interpretation needed?: No Implanted or Applied Medical D: Stents Past Medical History Surgeries: Cardiac, Valve Replacement Currently Using CPAP: No Currently Using BIPAP: No Angina, Chronic Edema/Swelling, Coronary Artery Disease, Heart Attack, High Cholesterol, Hypertension, Peripheral Vascular, Valvular Heart Disease Dementia, Neuropathy Sexually Transmitted Disease: No HIV/AIDS: No Gout Diabetes, Insulin dep Cataract Loss of Vision: Denies Hearing Impairment: Hard of Hearing Skin, Melanoma Did You Recieve Any Treatments: No Sleep Difficulties Blood Disorders: No Adverse Reaction/Blood Tranf: No Family Medical History Cancer 09 SISTER, Onset:60 years & older (OVARIAN CANCER) 09 SISTER, Onset:40's - 50 (BREAST CANCER) Chest pain 03 FATHER, Onset:50's - 60 ([place]) Dementia 03 MOTHER, Onset:60 years & older Family history: Alzheimer's disease 03 MOTHER, Onset:60 years & older Family history: Arthritis 03 FATHER, Onset:40's - 50 Family history: Breast disease 09 SISTER, Onset:40's - 50 ( OF BREAST CANCER) Family history: Cardiovascular disease 03 FATHER, Onset:40's - 50 Family history: Hypertension 03 FATHER, Onset:40's - 50 Heart disease 03 FATHER, Onset:40's - 50 Hypercholesterolemia 03 FATHER, Onset:40's - 50 Myocardial infarction 03 FATHER, Onset:40's - 50 Visual impairment 09 SISTER, Onset:40's - 50 No Family History of: Abdominal aortic aneurysm Rick's disease Alcoholism Aphasia Cancer of colon Cataract Congenital heart disease Congestive heart failure Cystic fibrosis Dysphagia Family history: Allergy Family history: Asthma Family history: Coronary thrombosis Family history: Diabetes mellitus Family history: Gastrointestinal disease Family history: Glaucoma Family history: Osteoporosis Family history: Thyroid disorder Headache Hearing loss Hereditary disease History of - anemia History of - disorder History of - respiratory disease History of drug abuse Human immunodeficiency virus (HIV) seropositivity Infertile Kidney disease Malignant neoplasm of lung Parkinson's disease Prostate cancer Psychotic disorder Seizure disorder Stroke Tuberculosis Heart Disease, Cancer, CAD Under 55 Years Old Review of Systems ROS-Unable to Obtain: limited by confusion Constitutional: chills, fever EENTM: see HPI Respiratory: No cough, No short of breath Cardiovascular: No chest pain Physical Exam Physical Exam Vital Signs Vital Signs - First Documented 08/13/21 16:00 Temp 37.6 Pulse 94 Resp 22 B/P (MAP) 111/58 (75) Pulse Ox 93 O2 Delivery Room Air Capillary Refill : Height, Weight, BMI Height: 5'10.00" Weight: 215lbs. 0.0oz. 97.607051vw; 27.75 BMI Method:Stated General Appearance: No Apparent Distress, Chronically ill, Thin HEENT: PERRL/EOMI, Moist Mucous Membranes, Other (scabbing in external auditory canal, TM WNL) Neck: Normal Inspection, Supple Respiratory: Lungs Clear, No Accessory Muscle Use, No Respiratory Distress Cardiovascular: Regular Rate, Rhythm, No Murmur Gastrointestinal: Normal Bowel Sounds, Non Tender, Soft Extremity: No Calf Tenderness, No Pedal Edema Neurologic/Psychiatric: Alert, Oriented x3 (to major details only), Normal Mood/Affect Skin: Normal Color, Warm/Dry Results Results/Procedures Labs Laboratory Tests 08/13/21 16:23 08/14/21 05:16 Patient resulted labs reviewed. Assessment/Plan Admission Diagnosis Sepsis due to UTI Admission Status: Inpatient Order (span 2 midnights) Reason for Inpatient Admission: see below Assessment and Plan Sepsis due to UTI Weakness Confusion Continue Rocephin Await cultures results from outside hospital Last fever around midnight, trend Mentation seems to be improving PT/OT HTN HLD A-fib NIDDMII No acute needs, continue home meds DVt ppx: Already on Eliquis Diagnosis/Problems Diagnosis/Problems (1) UTI (urinary tract infection) (2) Sepsis (3) Insulin dependent diabetes mellitus Status: Chronic (4) CAD (coronary artery disease) Status: Chronic (5) Essential (primary) hypertension Status: Chronic (6) PAD (peripheral artery disease) (7) Prophylactic measure LENNIE GREEN MD Aug 14, 2021 12:02
[2021-08-14] MEDS ORDERED: hydrOXYzine (ATARAX) 10 MG TAB PO PRN (15:45)
[2021-08-14] MEDS ORDERED: NON-FORMULARY MEDICATION 1 EA EA (Insulin Glargine,Hum.rec.anlog (Lantus Solostar) 20 UNIT SC SCH (17:00)
[2021-08-14] MEDS: ENOXAPARIN 40 MG/0.4 ML (LOVENOX) SYR SC SCH (17:00)
[2021-08-14] MEDS ORDERED: dilTIAZem DRIP PRE-MIX 125 ML IV SCH (18:45)
--- NOTE | 2021-08-14 20:02 | Tele-ICU Progress Note ---
Subjective Date Seen by a Provider: Aug 14, 2021 Time Seen by a Provider: 20:00 Subjective/Events-last exam This virtual visit was conducted using real time audio/video. Thank you for asking us to see this patient for urosepsis and multiple comorbidities. PMH: CAD, PAD, VHD, DM2, HL, afib, dementia SH: smoking history N FH: Non-contributory ROS: limited by patient's clinical condition. PE: VSS. O2 sat 94% on RA. HEENT: No obvious masses, adenopathy or JVD. Chest: clear to auscultation. CV: Irreg 112, 114/62 S1 S2 No murmur or added sounds. Abd: Non-tender. Bowel sounds Y. : Unremarkable. Iraheta Y. HOUSE STEWARD/STEWARDESS/psychiatric: Grossly intact. No obvious focal findings. Extremities: No edema. Capillary refill < 3 seconds. Skin: unremarkable. Results: Elevated WCC 13.4, 137. Decreased Hb 10.6, Na 132. CXR: not done. Available chart/ vitals / labs / images reviewed. Video assessment done using teleICU camera, rest of exam as per RN. A/P: Urosepsis- cont Rocephin, IVF, PRN pressors. Critical Care: critically ill patient. Cont. Dilt., eliquis, ASA, statin, Melvin., coreg, aldactone, lisinopril, insulin. Discussed with RN Dyllan. Asked RN to reach out to eICU if any questions or concerns later. Time spent with patient/coordination of care with other health professionals (mins): 28 Sepsis Event Evaluation Height, Weight, BMI Height: 5'10.00" Weight: 215lbs. 0.0oz. 97.258532ch; 27.75 BMI Method:Stated Focused Exam Lactate Level 08/13/21 16:23: Lactic Acid Level 1.34 Exam Exam Patient acknowledged, consented, and participated in this virtual visit which was conducted using real time audio/video Vital Signs Date Time Temp Pulse Resp B/P (MAP) Pulse Ox O2 Delivery O2 Flow Rate FiO2 08/14/21 18:42 Room Air 08/14/21 18:20 118 08/14/21 18:15 127/70 (89) Room Air 08/14/21 17:42 120 22 135/89 (104) 96 Room Air 08/14/21 16:45 116 08/14/21 16:00 36.4 117 20 169/91 (117) 94 Room Air 08/14/21 14:05 95 Room Air 08/14/21 11:34 37.1 100 18 133/58 (83) 95 Room Air 08/14/21 08:24 37.0 85 18 142/62 (88) 95 Room Air 08/14/21 08:05 Room Air 08/14/21 07:00 70 08/14/21 04:00 37.1 91 17 112/53 (72) 91 Room Air 08/14/21 01:45 37.4 08/14/21 01:00 94 08/14/21 00:15 38.7 08/14/21 00:09 38.0 104 19 138/82 (100) 95 Room Air 08/14/21 00:07 37.9 08/13/21 23:37 38.7 08/13/21 20:02 96 Room Air I & O 08/14/21 07:00 Intake Total 1730 ml Output Total 1500 ml Balance 230 ml Height & Weight Height: 5'10.00" Weight: 215lbs. 0.0oz. 97.231555kn; 27.75 BMI Method:Stated General Appearance: No Apparent Distress, Chronically ill, Thin HEENT: PERRL/EOMI, Moist Mucous Membranes, Other (scabbing in external auditory canal, TM WNL) Neck: Normal Inspection, Supple Respiratory: Lungs Clear, No Accessory Muscle Use, No Respiratory Distress Cardiovascular: Regular Rate, Rhythm, No Murmur Extremity: No Calf Tenderness, No Pedal Edema Neurologic/Psychiatric: Alert, Oriented x3 (to major details only), Normal Mood/Affect Skin: Normal Color, Warm/Dry Results Lab Laboratory Tests 08/13/21 16:23 08/14/21 05:16 Assessment/Plan Assessment/Plan See free text. Critical Care: Critically Ill Patient CHRISTIANO TA MD Aug 14, 2021 20:02
[2021-08-14] MEDS: APIXABAN 2.5 MG (ELIQUIS) TABLET PO SCH (20:52)
[2021-08-14] MEDS: lisINopril 5 MG (PRINIVIL) TABLET PO SCH (20:52)
[2021-08-14] MEDS ORDERED: NON-FORMULARY MEDICATION 1 EA EA (Cilostazol 100 MG) PO SCH (21:00)
[2021-08-14] MEDS ORDERED: RAMIPRIL 5 MG PO SCH (21:00)
[2021-08-15] VITALS (18 sets, daily range): BP systolic 75–136; BP diastolic 45–96
[2021-08-15 05:17] LABS: EOSINOPHILS % (AUTO) 0 % (0-10); MEAN CORPUSCULAR HEMOGLOBIN 30 pg (25-34)
[2021-08-15 05:18] LABS: BASOPHILS % (AUTO) 0 % (0-10); HEMATOCRIT 30 % (40-54); HEMOGLOBIN 9.9 g/dL (13.3-17.7); LYMPHOCYTES # (AUTO) 1.9 10^3/uL (1.0-4.0); LYMPHOCYTES % (AUTO) 18 % (12-44); MEAN CORPUSCULAR HGB CONC 33 g/dL (32-36); MEAN CORPUSCULAR VOLUME 90 fL (80-99); MEAN PLATELET VOLUME 9.7 fL (9.0-12.2); MONOCYTES # (AUTO) 1.3 10^3/uL (0.0-1.0); MONOCYTES % (AUTO) 13 % (0-12); NEUTROPHILS % (AUTO) 68 % (42-75); PLATELET COUNT 144 10^3/uL (130-400); WHITE BLOOD COUNT 10.4 10^3/uL (4.3-11.0)
[2021-08-15 05:29] LABS: POTASSIUM 3.7 MMOL/L (3.6-5.0)
[2021-08-15 05:30] LABS: CALCIUM 9.1 MG/DL (8.5-10.1)
[2021-08-15 05:35] LABS: CREATININE SERUM 0.89 MG/DL (0.60-1.30)
[2021-08-15 05:37] LABS: MAGNESIUM 1.8 MG/DL (1.6-2.4)
[2021-08-15] MEDS: KCL 20 MEQ TAB (K-DUR) PO SCH (05:43)
[2021-08-15] MEDS: MAGNESIUM 1 GM/100 ML IVPB 100 ML IV SCH (05:43)
[2021-08-15] MEDS: POTASSIUM CL 10MEQ/50ML IVPB 50 ML IV SCH (05:43)
[2021-08-15] MEDS: inSUlin ASPART (NovoLOG) 1 UNIT/0.01 ML (CHARGE PER UNIT) SC SCH ×7 (05:44→21:00)
--- NOTE | 2021-08-15 07:14 | Physical Therapy Progress Note ---
Therapy Progress Note Patient transferred to ICU due to decline in status. PT will require new orders to resume treatment when patient is medically stable and able to actively participate with skilled therapy. OSCAR SR PT Aug 15, 2021 07:14
--- NOTE | 2021-08-15 07:50 | Occ Therapy Progress Note ---
Therapy Progress Note Patient transferred to ICU due to decline in status. OT will require new orders to resume treatment when patient is medically stable and able to actively participate with skilled therapy. MARLON AGRAWAL Aug 15, 2021 07:50
[2021-08-15] MEDS: cefTRIAXone 1 GM PRE-MIX 50 ML IV SCH (08:23)
[2021-08-15] MEDS: lisINopril 5 MG (PRINIVIL) TABLET PO SCH (08:23)
[2021-08-15] MEDS: APIXABAN 2.5 MG (ELIQUIS) TABLET PO SCH ×2 (08:23→20:59)
[2021-08-15] MEDS: ASPIRIN 81 MG CHEW (CHILDREN'S ASA) PO SCH (08:23)
[2021-08-15] MEDS ORDERED: SPIRONOLACTONE 25 MG (ALDACTONE) TAB PO SCH (09:00)
[2021-08-15] MEDS ORDERED: DILTIAZEM HCL 180 MG PO SCH (09:00)
--- NOTE | 2021-08-15 09:09 | Progress Note - Hospitalist ---
Subjective HPI/CC On Admission Date Seen by Provider: Aug 15, 2021 Time Seen by Provider: 09:06 Pt is an 86yoCM with a PMH of a fib, HLD, HTN, IDDMII who presented to outside ER due to confusion. He was found to be septic from a UTI there and transferred here for admission. I spoke with his daughter briefly who states he was very c onfused yesterday but had not been by to see him today but heard he remained confused. On my exam he was not able to tell me much of what brought him here but that he felt better. He was able to tell me about his daughter who works here and about why his nickname was Maciej. 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 Subjective/Events-last exam Pt reports feeling well today. No complaints. Off cardizem since 130 this AM. RN at bedside, no concerns. Focused Exam Lactate Level 08/13/21 16:23: Lactic Acid Level 1.34 Objective Exam Vital Signs Vital Signs Date Time Temp Pulse Resp B/P (MAP) Pulse Ox O2 Delivery O2 Flow Rate FiO2 08/15/21 08:00 Room Air 08/15/21 07:44 36.4 08/15/21 07:00 74 19 114/59 (77) 96 Capillary Refill : General Appearance: No Apparent Distress, WD/WN Respiratory: Lungs Clear, No Respiratory Distress Cardiovascular: No Murmur, Irregularly Irregular Neurologic/Psychiatric: Alert, Other (oriented to person and place) Results/Procedures Lab Laboratory Tests 08/15/21 04:54 Patient resulted labs reviewed. Assessment/Plan Assessment and Plan Assess & Plan/Chief Complaint Sepsis due to UTI Weakness Confusion Continue Rocephin Await cultures results from outside hospital- will request those records today Last fever over 24 hours ago PT/OT A-fib transferred to ICU for cardizem due to RVR last night Now off and doing well Cardiology consulted, appreciate recs Eliquis for stroke ppx HTN HLD IDDMII No acute needs, continue home meds DVt ppx: Already on Eliquis Critical Care Critically Ill Patient Diagnosis/Problems Diagnosis/Problems (1) UTI (urinary tract infection) (2) Sepsis (3) Insulin dependent diabetes mellitus Status: Chronic (4) CAD (coronary artery disease) Status: Chronic (5) Essential (primary) hypertension Status: Chronic (6) PAD (peripheral artery disease) (7) Prophylactic measure LENNIE GREEN MD Aug 15, 2021 09:09
[2021-08-15] MEDS ORDERED: NS IV 1000 ML 1,000 ML IV ONE (09:30)
--- NOTE | 2021-08-15 09:44 | Physical Therapy Evaluation ---
PT Evaluation-General Medical Diagnosis Admission Date Aug 13, 2021 at 15:39 Medical Diagnosis: sepsis/UTI Onset Date: Aug 13, 2021 Therapy Diagnosis Therapy Diagnosis: debility/weakness Height/Weight Height (Feet): 5 Height (Inches): 10.00 Weight (Pounds): 215 Weight (Ounces): 0.0 Precautions Precautions/Isolations: Fall Prevention, Standard Precautions Referral Physician: Amalia Reason for Referral: Evaluation/Treatment Medical History Pertinent Medical History: CAD, DM, Dementia, Heart Failure, HTN, NC, Neuropathy, PVD Current History Transfer to ICU due to A-fib with RVR Reviewed History: Yes Social History Home: Single Level Current Living Status: Spouse Prior Prior Level of Function SCALE: Activities may be completed with or without assistive devices. 1-Qqhigdruqc-rooritz completes the activity by him/herself with no assistance from a helper. 5-Set-up or Clean-up Assistance-helper sets up or cleans up; patient completes activity. [place] assists only prior to or following the activity. 4-Supervision or Touching Assistance-helper provides verbal cues and/or touching/steadying and/or contact guard assistance as patient completes activity. Assistance may be provided throughout the activity or intermittently. 3-Partial/Moderate Assistance-helper does LESS THAN HALF the effort. [place] lifts, holds or supports trunk or limbs, but provides less than half the effort. 2-Substantial/Maximal Assistance-helper does MORE THAN HALF the effort. [place] lifts or holds trunk or limbs and provides more than half the effort. 2-Xoyznqkmy-wbgqgn does ALL the effort. Patient does none of the effort to complete the activity. Or, the assistance of 2 or more helpers is required for the patient to complete the activity. If activity was not attempted, code reason: 7-Patient Refused. 9-Not Applicable-not attempted and the patient did not perform the activity before the current illness, exacerbation or injury. 10-Not Attempted due to Environmental Limitations-(lack of equipment, weather restraints, etc.). 88-Not Attempted due to Medical Conditions or Safety Concerns. Bed Mobility: 3 Transfers (B,C,W/C): 3 Gait: 3 Indoor Mobility (Ambulation): Needed Some Help Prior Devices Use: Walker PT Evaluation-Current Subjective Patient remains confused. Incontinent BM. RN present. Objective Patient Orientation: Confused Attachments: Iraheta Catheter ROM/Strength ROM Lower Extremities bilateral LE WFL Strength Lower Extremities 3+/5 grossly bilateral LE Integumentary/Posture Bowel Incontinence: Yes Bladder Incontinence: Iraheta Cath Posture trunk flexed posture with slight kyphosis Neuromuscular (Tone, Coordination, Reflexes) diminished coordination due to confusion and weakness Sensory Vision: Functional Hearing: Impaired Transfers Lying to Sitting/Side of Bed(Q: 2 Sit to Stand (QC): 2 Chair/Cda-dg-Odxlp Xfer(QC): 2 Toilet Transfer (QC): 2 Patient able to stand on this date with increase difficulty with transferring to commode and recliner due to confusion Gait Does the Patient Walk?: No and Walking Goal IS indicated Gait Assistive Device: FWW Balance Sitting Static: Fair Sitting Dynamic: Fair Standing Static: Poor Standing Dynamic: Poor Assessment/Needs Increase difficulty with following direction on this date. Patient requires max assist with all mobility with use of gait belt. Nursing present to assist with dependent toileting due to incontinent BM during session. Patient up in recliner with needs met. Increase activity as tolerated by patient. Rehab Potential: Guarded PT Residential Goals Bag Filler Machine Operator Goals PT Bag Filler Machine Operator Goals Time Frame: September 02, 2021 Roll Left & Right (QC): 4 Sit to Lying (QC): 4 Lying-Sitting on Side/Bed(QC): 4 Sit to Stand (QC): 4 Chair/Wyc-fq-Drmwe Xfer(QC): 4 Toilet Transfer (QC): 4 Walk 10 feet (QC): 4 Walk 50ft with 2 Turns (QC): 4 PT Plan Problem List Problem List: Activity Tolerance, Functional Strength, Safety, Balance, Gait, Transfer, Bed Mobility Treatment/Plan Treatment Plan: Continue Plan of Care Treatment Plan: Bed Mobility, Education, Functional Activity Romy, Functional Strength, Gait, Safety, Therapeutic Exercise, Transfers Treatment Duration: September 02, 2021 Frequency: 6 times per week Estimated Hrs Per Day: .25 hour per day Time/GCodes Time In: 827 Time Out: 837 Total Billed Treatment Time: 10 Total Billed Treatment 1 visit EVModC 10 min OSCAR SR PT Aug 15, 2021 09:44
--- NOTE | 2021-08-15 09:56 | Consultation-Cardiology ---
HPI-Cardiology Cardiology Consultation: Date of Consultation 08/15/21 Time Seen by a Provider: 09:50 Date of Admission 08-14-21 Attending Physician Ingris Morgan MD Admitting Physician Tanvi Maxwell DO Consulting Physician SHERRI PACHECO HPI: Chief Complaint: A-fib with RVR Mr. Romo is an 86 yr old male admitted to ICU 12 from [facility] in [place], [place] with confusion, UTI and fall at home. He is currently sitting up in a recliner in the room. He reports he fell at home d/t losing his balance. No syncope or near syncope. No c/o CP. No c/o palpitations. He states he feels better. He had an episode of a-fib with RVR which prompted initiation of Cardizem gtt. He has converted to SR 70's and Cardizem gtt is off. He is already on Eliquis, low dose d/t advance age. He denies any n/v/d. He denies any fever or chills. Review of Systems-Cardiology Review of Systems Constitutional: No chills, No fever; lightheadedness, malaise Eyes: No vision change Ears/Nose/Throat: No epistaxis, No recent hearing loss Respiratory: As described under HPI Cardiovascular: As described under HPI Gastrointestinal: As described under HPI Genitourinary: No dysuria Skin: other (extensive bruising to hands/arms bilat); No rash on exposed areas, No ulcerations on exposed areas Psychiatric/Neurological: No anxiety, No depression, No seizure, No focal weakness, No syncope Hematologic: easy bruising; No bleeding abnormalities LVG-Fysktv-Dcjatv Hx Patient Social History Marrital Status: Employed/Student: retired Smoking Status: Unknown if Ever Smoked Have you traveled recently?: No Alcohol Use?: No Pt feels they are or have been: No Past Medical History PMH As described under Assessment. Family Medical History Family Medical History: Family h/o father having CAD and HTN. Family History: Cancer 09 SISTER, Onset:60 years & older (OVARIAN CANCER) 09 SISTER, Onset:40's - 50 (BREAST CANCER) Chest pain 03 FATHER, Onset:50's - 60 (AR) Dementia 03 MOTHER, Onset:60 years & older Family history: Alzheimer's disease 03 MOTHER, Onset:60 years & older Family history: Arthritis 03 FATHER, Onset:40's - 50 Family history: Breast disease 09 SISTER, Onset:40's - 50 ( OF BREAST CANCER) Family history: Cardiovascular disease 03 FATHER, Onset:40's - 50 Family history: Hypertension 03 FATHER, Onset:40's - 50 Heart disease 03 FATHER, Onset:40's - 50 Hypercholesterolemia 03 FATHER, Onset:40s - 50 Myocardial infarction 03 FATHER, Onset:40's - 50 Visual impairment 09 SISTER, Onset:40's 50 No Family History of: Abdominal aortic aneurysm [place]'s disease Alcoholism Aphasia Cancer of colon Cataract Congenital heart disease Congestive heart failure Cystic fibrosis Dysphagia Family history: Allergy Family history: Asthma Family history: Coronary thrombosis Family history: Diabetes mellitus Family history: Gastrointestinal disease Family history: Glaucoma Family history: Osteoporosis Family history: Thyroid disorder Headache Hearing loss Hereditary disease History of - anemia History of - disorder History of - respiratory disease History of drug abuse Human immunodeficiency virus (HIV) seropositivity Infertile Kidney disease Malignant neoplasm of lung Parkinson's disease Prostate cancer Psychotic disorder Seizure disorder Stroke Tuberculosis Allergies and Home Medications Allergies Coded Allergies: No Known Drug Allergies (Unverified , 06/06/17) Patient Home Medication List Acetaminophen (Tylenol Extra Strength) 500 Mg Tablet, 1,000 MG PO Q6H PRN for PAIN-MILD (1-4), (Reported) Entered as Reported by: JUANI RENE on 08/14/21 1117 Last Action: Continued Apixaban (Eliquis) 2.5 Mg Tablet, 2.5 MG PO BID, (Reported) Entered as Reported by: JUANI RENE on 08/14/21 1053 Last Action: Continued Aspirin (Aspirin) 81 Mg Tab.chew, 81 MG PO DAILY, (Reported) Entered as Reported by: JUANI RENE on 08/14/21 111 Last Action: Continued Atorvastatin Calcium (Atorvastatin Calcium) 20 Mg Tablet, 20 MG PO HS, (Reported) Entered as Reported by: AGUILA MELLO on 06/06/17 1008 Last Action: Continued Calcium Carbonate (Calcium) 500 Mg Tablet, 500 MG PO DAILY, (Reported) Entered as Reported by: JUANI RENE on 08/14/21 1118 Last Action: Held Carvedilol (Carvedilol) 6.25 Mg Tablet, 6.25 MG PO BID, (Reported) Entered as Reported by: JUANI RENE on 08/14/21 1058 Last Action: Continued Cilostazol (Cilostazol) 100 Mg Tablet, 100 MG PO BID, (Reported) Entered as Reported by: AGUILA MELLO on 06/06/17 100 Last Action: Converted Diltiazem HCl (Dilt-Xr) 180 Mg Cap.er.deg, 180 MG PO DAILY, (Reported) Entered as Reported by: JUANI RENE on 08/14/21 1059 Last Action: Converted Insulin Glargine,Hum.rec.anlog (Lantus Solostar) 100 Unit/1 Ml Insuln.pen, 20 UNITS SC 1700, (Reported) Entered as Reported by: AGUILA MELLO on 06/06/17 1038 Last Action: Converted Insulin Lispro (Humalog Kwikpen) 100 Unit/1 Ml Insuln.pen, 10 UNITS SC TIDAC, (Reported) Entered as Reported by: AGUILA MELLO on 06/06/17 1038 Last Action: Converted Loperamide HCl (Imodium A-D) 2 Mg Tablet, 2-4 MG PO UD, (Reported) Entered as Reported by: JUANI RENE on 08/14/21 1119 Last Action: Held Multivit-Min/FA/Lycopene/Lut (Certavite Sr-Antioxidant Tab) 1 Each Tablet, 1 EACH PO DAILY, (Reported) Entered as Reported by: JUANI RENE on 08/14/21 1053 Last Action: Held [place] 3 Polyunsat Fatty Acids (Fish Oil 1,000 mg Capsule) 1,000 Mg Cap, 1,000 MG PO DAILY, (Reported) Entered as Reported by: AGUILA MELLO on 06/06/17 100 Last Action: Held Ramipril (Ramipril) 5 Mg Capsule, 5 MG PO BID, (Reported) Entered as Reported by: JUANI RENE on 08/14/21 105 Last Action: Converted Spironolactone (Spironolactone) 25 Mg Tablet, 25 MG PO DAILY, (Reported) Entered as Reported by: NOEL ZARAGOZA on 12/03/17 0738 Last Action: Continued Discontinued Medications Amlodipine Besylate (Amlodipine Besylate) 5 Mg Tablet, 5 MG PO DAILY Discontinued Reason: No Longer Taking Prescribed by: SHERRI PURDY on 04/20/20 1641 Last Action: Discontinued Aspirin (Aspirin EC) 81 Mg Tablet., 81 MG PO DAILY, (Reported) Discontinued Reason: No Longer Taking Entered as Reported by: AGUILA MELLO on 06/06/17 1038 Last Action: Discontinued Physical Exam-Cardiology Physical Exam Vital Signs/I&O 08/15/21 08/15/21 08/15/21 08/15/21 05:00 06:00 07:00 07:00 Pulse 79 80 73 74 Resp 16 20 19 B/P (MAP) 108/63 (78) 111/61 (78) 114/59 (77) Pulse Ox 94 95 96 O2 Delivery Room Air Room Air Room Air 08/15/21 08/15/21 08/15/21 08/15/21 07:44 08:00 08:00 09:00 Temp 36.4 Pulse 73 89 Resp 25 13 B/P (MAP) 105/71 (82) 100/53 (69) Pulse Ox 94 97 O2 Delivery Room Air Room Air Room Air 08/15/21 08/15/21 08/15/21 08/15/21 10:00 11:00 11:08 12:00 Pulse 72 68 40 72 Resp 16 18 B/P (MAP) 75/45 (55) 96/65 (75) 109/76 (87) Pulse Ox 91 94 95 O2 Delivery Room Air Room Air Room Air 08/15/21 08/15/21 08/15/21 08/15/21 12:00 12:00 12:00 13:00 Temp 36.1 Pulse 68 68 Resp 20 B/P (MAP) 103/90 (94) Pulse Ox 95 O2 Delivery Room Air Room Air 08/15/21 08/15/21 08/15/21 14:00 15:00 16:00 Pulse 61 67 72 Resp 15 24 34 B/P (MAP) 100/45 (63) 108/96 (100) 121/63 (82) Pulse Ox 94 92 95 O2 Delivery Room Air Room Air Room Air 08/15/21 00:00 Intake Total 1180 ml Output Total 2100 ml Balance -920 ml Capillary Refill : Constitutional: AAO x 3, well-developed, well-nourished HEENT: PERRL, hard of hearing, oral hygience is good Neck: No carotid bruit; carotid pulses are 2 + bilaterally Respiratory: No accessory muscle use, No respiratory distress; chest expansion is symmetric, chest is bilaterally symmetric, lungs clear to auscultation Cardiovascular: regular rate-rhythm; No JVD; S1 and S2 Gastrointestinal: No tender; soft, round, audible bowel sounds Extremities: no lower extremity edema bilateral Neurologic/Psychiatric: grossly intact (moves all extremities) Skin: pallor, other (extensive bruising to arms/hands bilat. Brusing with excoriations to legs bilat. Bruising to ACW) Data Review Labs Laboratory Tests 08/14/21 20:49: Glucometer 139H 08/15/21 04:54: White Blood Count 10.4, Red Blood Count 3.30L, Hemoglobin 9.9L, Hematocrit 30L, Mean Corpuscular Volume 90, Mean Corpuscular Hemoglobin 30, Mean Corpuscular Hemoglobin Concent 33, Red Cell Distribution Width 13.5, Platelet Count 144, Mean Platelet Volume 9.7, Immature Granulocyte % (Auto) 1, Neutrophils (%) (Auto) 68, Lymphocytes (%) (Auto) 18, Monocytes (%) (Auto) 13H, Eosinophils (%) (Auto) 0, Basophils (%) (Auto) 0, Neutrophils # (Auto) 7.0, Lymphocytes # (Auto) 1.9, Monocytes # (Auto) 1.3H, Eosinophils # (Auto) 0.0, Basophils # (Auto) 0.0, Immature Granulocyte # (Auto) 0.1, Percent Immature Platelet Fraction 3.8, Sodium Level 133L, Potassium Level 3.7, Chloride Level 100, Carbon Dioxide Level 20L, Anion Gap 13, Blood Urea Nitrogen 21H, Creatinine 0.89, Estimat Glomerular Filtration Rate 83, BUN/Creatinine Ratio 24, Glucose Level 90, Calcium Level 9.1, Magnesium Level 1.8 08/15/21 10:47: Glucometer 138H 08/15/21 15:44: Glucometer 142H ECG Impression ECG Initial ECG Rhythm: Normal Sinus A/P-Cardiology Assessment/Admission Diagnosis UTI with sepsis - management per medical services Confusion - likely secondary to sepsis Episode of a-fib with RVR - Currently SR - required Cardizem gtt - currently off gtt and on oral Cardizem - H/O PAF - documented on ILR transmissions of Apr and May 2020 - Eliquis for stroke prophylaxis. Lower dose because he is also on ASA and age is greater than 85 Hypotensive currently - likely secondary to sepsis Near-syncope in Mar 2020 - s/p ILR implant on 04/20/20 - ILR showing brief WCT in early Nov 2020: probaly A fib, but cannot exclude NSVT. s/p TAVR at on 08/07/[address] Valente - Echo of 04/20/20: LVEF 50%, mild to mod dilatation of LA, mild to mod MR, bioprosthetic AoV with peak grad 20 mmHg and mean grad 11 mmHg, mild tomod TR, RVSP 30 mmHg - Echo of 02-01-21: LVEF 45-50%: mod conc LVH, dilated LA, bioprostheitc aoric valve with peak grad 28 and mean grad 15 mmHg Hypertension - controlled Poor balance - intermittent noncompliance with supportive devices such as cane/walker, recent falls at home CAD - H/O CECY to the LAD at at time of cardiac cath on 07/10/[address] Roman - MPI 01-31-21: mild to mod cardiomegaly with mild to mod global hypokinesis and LVEF 43%, no ischemia or infarction Carotid dz - H/o right carotid stent. - Mild carotid arterial disease without evidence of hemodynamic significance on carotid u/s of 08/22/20 PAD: - Peripheral angiogram was done on 12/03/[address] Palafox which demonstrated moderate calcified disease segment in the right common iliac artery. Very tortuous right distal common iliac artery and external iliac artery. Small AV fistula noted in the distal right SFA filling deep saphenous vein. Mild diffuse disease in the right SFA. No significant disease in the right popliteal artery. At least moderate calcification is noted in the right SFA and popliteal artery. Severe stenosis in the right TP trunk with heavy calcification. Single-vessel runoff below the knee which is an anterior tibial artery which is occluded in the distal segment. Diffusely diseased severe deep peroneal and posterior tibial artery with heavy calcification with no contribution to flow to the foot. In the left lower extremity there was no significant disease in the left common and external iliac artery. Severe ostial stenosis of the left internal iliac artery. Moderate calcified stenosis is noted in the left common femoral artery. Moderate to severe stenosis in the proximal left SFA. Moderate disease calcified in the mid, distal SFA and proximal popliteal artery. Moderate to severe calcified is disease segment in the distal left popliteal artery. 1 vessel runoff below the left knee which is very likely a posterior tibial artery with subtotal occlusion in the proximal segment. Total occlusion of the deep peroneal and anterior tibial artery. - Last HELADIO done on 05/07/[address] Palafox which showed severely abnormal bilateral HELADIO and TBI. Right HELADIO 0.46, TBI 0.25. Left HELADIO 0.45, TBI 0.35. No resting pain or nonhealing ulcers with single-vessel runoff bilaterally. Managed conservatively Hyperlipidemia - statin - managed by PCP Back pain - Per CT Lumbar spin of Apr 19, 2020: Acute T12 fracture Bilateral leg swelling, chronic - likely related to venous isuff Discussion and Recomendations UTI with sepsis - management per medical services H/O PAF - episode of a-fib with RVR overnight - converted to SR with controlled rate - continue oral Cardizem CD - continue low dose Eliquis (d/t advance age) Confusion improving - management per medical services Hypotensive this morning - likely d/t sepsis - reduce antihypertensives - adjust as indicated - gentle IVF hydration - management per medical services Monitor lab closely - replace electrolytes as indicated Further recs will be based on his hospital course We would like to thank medical services for this consult SHERRI PURDY Aug 15, 2021 09:56
[2021-08-15] MEDS ORDERED: NS IV 1000 ML 1,000 ML ONE (10:06)
--- NOTE | 2021-08-15 12:06 | Occupational Therapy Eval ---
OT Evaluation-General/PLF Medical Diagnosis Admission Date Aug 13, 2021 at 15:39 Medical Diagnosis: sepsis/UTI Onset Date: Aug 13, 2021 Therapy Diagnosis Therapy Diagnosis: decreased ADL status Height/Weight Height (Feet): 5 Height (Inches): 10.00 Weight (Pounds): 215 Weight (Ounces): 0.0 Precautions Precautions/Isolations: Fall Prevention, Standard Precautions Referral Physician: Amalia Referral Reason: Evaluation/Treatment Medical History Pertinent Medical History: CAD, DM, Dementia, Heart Failure, HTN, IA, Neuropathy, PVD Additional Medical History CAD, DM, dementia, heart failure, HTN, IA, neuropathy, PVD Current History transfer to ICU due to afib with RVR Social History Home: Single Level Current Living Status: Spouse Steps Into Home: 2 ADL-Prior Level of Function SCALE: Activities may be completed with or without assistive devices. 1-Gadgsnakjz-ftdysrb completes the activity by him/herself with no assistance from a helper. 5-Set-up or Clean-up Assistance-helper sets up or cleans up; patient completes activity. [place] assists only prior to or following the activity. 4-Supervision or Touching Assistance-helper provides verbal cues and/or touching/steadying and/or contact guard assistance as patient completes activity. Assistance may be provided throughout the activity or intermittently. 3-Partial/Moderate Assistance-helper does LESS THAN HALF the effort. [place] lifts, holds or supports trunk or limbs, but provides less than half the effort. 2-Substantial/Maximal Assistance-helper does MORE THAN HALF the effort. [place] lifts or holds trunk or limbs and provides more than half the effort. 4-Ysrahpsnh-uqrcqd does ALL the effort. Patient does none of the effort to complete the activity. Or, the assistance of 2 or more helpers is required for the patient to complete the activity. If activity was not attempted, code reason: 7-Patient Refused. 9-Not Applicable-not attempted and the patient did not perform the activity before the current illness, exacerbation or injury. 10-Not Attempted due to Environmental Limitations-(lack of equipment, weather restraints, etc.). 88-Not Attempted due to Medical Conditions or Safety Concerns. ADL PLOF Comments Pt had difficulty providing information about PLOF. when asked if he needs assistance with ADLs, he replies "I don't think too much". He also declines requiring any AD at baseline. Pt believes he has a walk in shower with a SC. Accuracy of information unknown and level of assistance unknown for PLOF. Self Care: Unknown Functional Cognition: Unknown OT Current Status Subjective Pt up in recliner, agreeable to OT Tx. Mental Status/Objective Patient Orientation: Person, Confused Attachments: Iraheta Catheter, IV Current Upper Extremity ROM WFL during ADLs Upper Extremity Strength unable to formally assess, grossly 3/5 BUEs ADL-Treatment Eating (QC): 5 (Per pt report) Oral Hygiene (QC): 4 (SBA, min verbal cues for sequencing of task) On/Off Footwear (QC): 1 (total assist with gripper socks.) Toileting Hygiene (QC): 1 (catheter) Other Treatments Pt up in recliner, agreeable to OT evaluation/tx. Pt provided information about PLOF and home set up to his ability. Pt completed oral care with SBA, min verbal cues for sequencing. Pt required assistance adjusting bilateral gripper socks. Per PT report, pt required total assistance with toileting, max A with transfers. Post tx, pt in recliner, call light in reach and all needs met. Education OT Patient Education: Correct positioning, Energy conservation, Modified ADL techniques, Progress toward Goal/Update tx plan, Purpose of tx/functional activities, Rehab process Teaching Recipient: Patient Teaching Methods: Discussion Response to Teaching: Reinforcement Needed OT Half-Way Goals Manager Rehab Goals Time Frame: Aug 26, 2021 Eating (QC): 5 Oral Hygiene (QC): 5 Toileting Hygiene (QC): 4 Shower/Bathe Self (QC): 4 Upper Body Dressing (QC): 4 Lower Body Dressing (QC): 4 On/Off Footwear (QC): 4 1=Demonstrate adherence to instructed precautions during ADL tasks. 2=Patient will verbalize/demonstrate understanding of assistive devices/modifications for ADL. 3=Patient will improve strength/tolerance for activity to enable patient to perform ADL's. OT Education/Plan Problem List/Assessment Assessment: Decreased Activ Tolerance, Decreased Safety Aware, Decreased UE Strength, Dependent Transfers, Impaired Cognition, Impaired Funct Balance, Impaired I ADL's, Impaired Self-Care Skills Discharge Recommendations Plan/Recommendations: Continue POC Treatment Plan/Plan of Care Patient would benefit from OT for education, treatment and training to promote independence in ADL's, mobility, safety and/or upper extremity function for ADL's. Plan of Care: ADL Retraining, Cognitive Retraining, Functional Mobility, UE Funct Exercise/Act Treatment Duration: Aug 26, 2021 Frequency: 3 times per week (3-5 times per week) Estimated Hrs Per Day: .25 hour per day Rehab Potential: Guarded Time/GCodes Start Time: 11:43 Stop Time: 11:53 Total Time Billed (hr/min): 10 Billed Treatment Time 1, KENIA HERMOSILLO OT Aug 15, 2021 12:06
--- NOTE | 2021-08-15 15:23 | Consultation-Cardiology ---
HPI-Cardiology Cardiology Consultation: Date of Consultation 08/15/21 Time Seen by a Provider: 15:10 Date of Admission Attending Physician Ingris Morgan MD Admitting Physician Tanvi Maxwell DO Consulting Physician KALLI COURTNEY MD, FACP, FACC HPI: Chief Complaint: A-fib with RVR Mr. Romo is an 86 yr old male admitted to ICU 12 from [facility] in [place], [place] with confusion, UTI and fall at home. He is currently sitting up in a recliner in the room. He reports he fell at home d/t losing his balance. No syncope or near syncope. No c/o CP. No c/o palpitations. He states he feels better. He had an episode of a-fib with RVR which prompted initiation of Cardizem gtt. He has converted to SR 70's and Cardizem gtt is off. He is already on Eliquis, low dose d/t advance age. He denies any n/v/d. He denies any fever or chills. Review of Systems-Cardiology Review of Systems Constitutional: No chills, No fever; lightheadedness, malaise Eyes: No vision change Ears/Nose/Throat: No epistaxis, No recent hearing loss Respiratory: As described under HPI Cardiovascular: As described under HPI Gastrointestinal: As described under HPI Genitourinary: No dysuria Skin: other (extensive bruising to hands/arms bilat); No rash on exposed areas, No ulcerations on exposed areas Psychiatric/Neurological: No anxiety, No depression, No seizure, No focal weakness, No syncope Hematologic: easy bruising; No bleeding abnormalities [id number] Hx Patient Social History Marrital Status: Employed/Student: retired Smoking Status: Unknown if Ever Smoked Have you traveled recently?: No Alcohol Use?: No Pt feels they are or have been: No Past Medical History PMH As described under Assessment. Family Medical History Family Medical History: Family h/o father having CAD and HTN. Family History: Cancer 09 SISTER, Onset:60 years & older (OVARIAN CANCER) 09 SISTER, Onset:40's - 50 (BREAST CANCER) Chest pain 03 FATHER, Onset:50's - 60 (AL) Dementia 03 MOTHER, Onset:60 years & older Family history: Alzheimer's disease 03 MOTHER, Onset:60 years & older Family history: Arthritis 03 FATHER, Onset:40's - 50 Family history: Breast disease 09 SISTER, Onset:40's - 50 ( OF BREAST CANCER) Family history: Cardiovascular disease 03 FATHER, Onset:40's - 50 Family history: Hypertension 03 FATHER, Onset:40's - 50 Heart disease 03 FATHER, Onset:40's - 50 Hypercholesterolemia 03 FATHER, Onset:40's - 50 Myocardial infarction 03 FATHER, Onset:40's - 50 Visual impairment 09 SISTER, Onset:40's - 50 No Family History of: Abdominal aortic aneurysm [place] disease Alcoholism Aphasia Cancer of colon Cataract Congenital heart disease Congestive heart failure Cystic fibrosis Dysphagia Family history: Allergy Family history: Asthma Family history: Coronary thrombosis Family history: Diabetes mellitus Family history: Gastrointestinal disease Family history: Glaucoma Family history: Osteoporosis Family history: Thyroid disorder Headache Hearing loss Hereditary disease History of - anemia History of - disorder History of - respiratory disease History of drug abuse Human immunodeficiency virus (HIV) seropositivity Infertile Kidney disease Malignant neoplasm of lung Parkinson's disease Prostate cancer Psychotic disorder Seizure disorder Stroke Tuberculosis Allergies and Home Medications Allergies Coded Allergies: No Known Drug Allergies (Unverified , 06/06/17) Patient Home Medication List Home Medication List Reviewed: Yes Acetaminophen (Tylenol Extra Strength) 500 Mg Tablet, 1,000 MG PO Q6H PRN for PAIN-MILD (1-4), (Reported) Entered as Reported by: JUANI RENE on 08/14/21 1117 Last Action: Continued Apixaban (Eliquis) 2.5 Mg Tablet, 2.5 MG PO BID, (Reported) Entered as Reported by: JUANI RENE on 08/14/21 1053 Last Action: Continued Aspirin (Aspirin) 81 Mg Tab.chew, 81 MG PO DAILY, (Reported) Entered as Reported by: JUANI RENE on 08/14/21 1118 Last Action: Continued Atorvastatin Calcium (Atorvastatin Calcium) 20 Mg Tablet, 20 MG PO HS, (Reported) Entered as Reported by: AGUILA MELLO on 06/06/17 1008 Last Action: Continued Calcium Carbonate (Calcium) 500 Mg Tablet, 500 MG PO DAILY, (Reported) Entered as Reported by: JUANI RENE on 08/14/21 111 Last Action: Held Carvedilol (Carvedilol) 6.25 Mg Tablet, 6.25 MG PO BID, (Reported) Entered as Reported by: JUANI RENE on 08/14/21 1058 Last Action: Continued Cilostazol (Cilostazol) 100 Mg Tablet, 100 MG PO BID, (Reported) Entered as Reported by: AGUILA MELLO on 06/06/17 100 Last Action: Converted Diltiazem HCl (Dilt-Xr) 180 Mg Cap.er.deg, 180 MG PO DAILY, (Reported) Entered as Reported by: JUANI RENE on 08/14/21 1059 Last Action: Converted Insulin Glargine,Hum.rec.anlog (Lantus Solostar) 100 Unit/1 Ml Insuln.pen, 20 UNITS SC 1700, (Reported) Entered as Reported by: AGUILA MELLO on 06/06/17 1038 Last Action: Converted Insulin Lispro (Humalog Kwikpen) 100 Unit/1 Ml Insuln.pen, 10 UNITS SC TIDAC, (Reported) Entered as Reported by: AGUILA MELLO on 06/06/17 1038 Last Action: Converted Loperamide HCl (Imodium A-D) 2 Mg Tablet, 2-4 MG PO UD, (Reported) Entered as Reported by: JUANI RENE on 08/14/21 1119 Last Action: Held Multivit-Min/FA/Lycopene/Lut (Certavite Sr-Antioxidant Tab) 1 Each Tablet, 1 EACH PO DAILY, (Reported) Entered as Reported by: JUANI RENE on 08/14/21 1053 Last Action: Held [place] 3 Polyunsat Fatty Acids (Fish Oil 1,000 mg Capsule) 1,000 Mg Cap, 1,000 MG PO DAILY, (Reported) Entered as Reported by: AGUILA MELLO on 06/06/17 100 Last Action: Held Ramipril (Ramipril) 5 Mg Capsule, 5 MG PO BID, (Reported) Entered as Reported by: JUANI RENE on 08/14/21 105 Last Action: Converted Spironolactone (Spironolactone) 25 Mg Tablet, 25 MG PO DAILY, (Reported) Entered as Reported by: NOEL ZARAGOZA on 12/03/17 0738 Last Action: Continued Discontinued Medications Amlodipine Besylate (Amlodipine Besylate) 5 Mg Tablet, 5 MG PO DAILY Discontinued Reason: No Longer Taking Prescribed by: SHERRI PURDY on 04/20/20 1641 Last Action: Discontinued Aspirin (Aspirin EC) 81 Mg Tablet., 81 MG PO DAILY, (Reported) Discontinued Reason: No Longer Taking Entered as Reported by: AGUILA MELLO on 06/06/17 1038 Last Action: Discontinued Physical Exam-Cardiology Physical Exam Vital Signs/I&O 08/15/21 08/15/21 08/15/21 08/15/21 04:00 04:00 05:00 06:00 Pulse 82 79 80 Resp 23 16 20 B/P (MAP) 107/63 (78) 108/63 (78) 111/61 (78) Pulse Ox 95 94 95 O2 Delivery Room Air Room Air Room Air Room Air 08/15/21 08/15/21 08/15/21 08/15/21 07:00 07:00 07:44 08:00 Temp 36.4 Pulse 73 74 73 Resp 19 25 B/P (MAP) 114/59 (77) 105/71 (82) Pulse Ox 96 94 O2 Delivery Room Air Room Air 08/15/21 08/15/21 08/15/21 08/15/21 08:00 09:00 10:00 11:00 Pulse 89 72 68 Resp 13 16 B/P (MAP) 100/53 (69) 75/45 (55) 96/65 (75) Pulse Ox 97 91 94 O2 Delivery Room Air Room Air Room Air Room Air 08/15/21 08/15/21 08/15/21 11:08 12:00 12:00 Temp 36.1 Pulse 40 O2 Delivery Room Air 08/15/21 00:00 Intake Total 1180 ml Output Total 2100 ml Balance -920 ml Capillary Refill : Constitutional: AAO x 3, well-developed, well-nourished HEENT: PERRL, hard of hearing, oral hygience is good Neck: No carotid bruit; carotid pulses are 2 + bilaterally Respiratory: No accessory muscle use, No respiratory distress; chest expansion is symmetric, chest is bilaterally symmetric, lungs clear to auscultation Cardiovascular: regular rate-rhythm; No JVD; S1 and S2 Gastrointestinal: No tender; soft, round, audible bowel sounds Extremities: no lower extremity edema bilateral Neurologic/Psychiatric: grossly intact (moves all extremities) Skin: pallor, other (extensive bruising to arms/hands bilat. Brusing with excoriations to legs bilat. Bruising to ACW) Data Review Labs Laboratory Tests 08/14/21 15:57: Glucometer 137H 08/14/21 20:49: Glucometer 139H 08/15/21 04:54: White Blood Count 10.4, Red Blood Count 3.30L, Hemoglobin 9.9L, Hematocrit 30L, Mean Corpuscular Volume 90, Mean Corpuscular Hemoglobin 30, Mean Corpuscular Hemoglobin Concent 33, Red Cell Distribution Width 13.5, Platelet Count 144, Mean Platelet Volume 9.7, Immature Granulocyte % (Auto) 1, Neutrophils (%) (Auto) 68, Lymphocytes (%) (Auto) 18, Monocytes (%) (Auto) 13H, Eosinophils (%) (Auto) 0, Basophils (%) (Auto) 0, Neutrophils # (Auto) 7.0, Lymphocytes # (Auto) 1.9, Monocytes # (Auto) 1.3H, Eosinophils # (Auto) 0.0, Basophils # (Auto) 0.0, Immature Granulocyte # (Auto) 0.1, Percent Immature Platelet Fraction 3.8, Sodium Level 133L, Potassium Level 3.7, Chloride Level 100, Carbon Dioxide Level 20L, Anion Gap 13, Blood Urea Nitrogen 21H, Creatinine 0.89, Estimat Glomerular Filtration Rate 83, BUN/Creatinine Ratio 24, Glucose Level 90, Calcium Level 9.1, Magnesium Level 1.8 08/15/21 10:47: Glucometer 138H A/P-Cardiology Assessment/Admission Diagnosis UTI with sepsis - management per medical services Confusion - likely secondary to sepsis Episode of a-fib with RVR - Currently SR - required Cardizem gtt - currently off gtt and on oral Cardizem - H/O PAF - documented on ILR transmissions of Apr and May 2020 - Eliquis for stroke prophylaxis. Lower dose because he is also on ASA and age is greater than 85 Hypotensive currently - likely secondary to sepsis Near-syncope in Mar 2020 - s/p ILR implant on 04/20/20 - ILR showing brief WCT in early Nov 2020: probaly A fib, but cannot exclude NSVT. s/p TAVR at on 08/07/[address] Valente - Echo of 04/20/20: LVEF 50%, mild to mod dilatation of LA, mild to mod MR, bioprosthetic AoV with peak grad 20 mmHg and mean grad 11 mmHg, mild tomod TR, RVSP 30 mmHg - Echo of 02-01-21: LVEF 45-50%: mod conc LVH, dilated LA, bioprostheitc aoric valve with peak grad 28 and mean grad 15 mmHg Hypertension - controlled Poor balance - intermittent noncompliance with supportive devices such as cane/walker, recent falls at home CAD - H/O CECY to the LAD at [facility] at time of cardiac cath on 07/10/[address] Roman - MPI 01-31-21: mild to mod cardiomegaly with mild to mod global hypokinesis and LVEF 43%, no ischemia or infarction Carotid dz - H/o right carotid stent. - Mild carotid arterial disease without evidence of hemodynamic significance on carotid u/s of 08/22/20 PAD: - Peripheral angiogram was done on 12/03/[address] Palafox which demonstrated moderate calcified disease segment in the right common iliac artery. Very tortuous right distal common iliac artery and external iliac artery. Small AV fistula noted in the distal right SFA filling deep saphenous vein. Mild diffuse disease in the right SFA. No significant disease in the right popliteal artery. At least moderate calcification is noted in the right SFA and popliteal artery. Severe stenosis in the right TP trunk with heavy calcification. Single-vessel runoff below the knee which is an anterior tibial artery which is occluded in the distal segment. Diffusely diseased severe deep peroneal and posterior tibial artery with heavy calcification with no contribution to flow to the foot. In the left lower extremity there was no significant disease in the left common and external iliac artery. Severe ostial stenosis of the left internal iliac artery. Moderate calcified stenosis is noted in the left common femoral artery. Moderate to severe stenosis in the proximal left SFA. Moderate disease calcified in the mid, distal SFA and proximal popliteal artery. Moderate to severe calcified is disease segment in the distal left popliteal artery. 1 vessel runoff below the left knee which is very likely a posterior tibial artery with subtotal occlusion in the proximal segment. Total occlusion of the deep peroneal and anterior tibial artery. - Last HELADIO done on 05/07/[address] Palafox which showed severely abnormal bilateral HELADIO and TBI. Right HELADIO 0.46, TBI 0.25. Left HELADIO 0.45, TBI 0.35. No resting pain or nonhealing ulcers with single-vessel runoff bilaterally. Managed conservatively Hyperlipidemia - statin - managed by PCP Back pain - Per CT Lumbar spin of Apr 19, 2020: Acute T12 fracture Bilateral leg swelling, chronic - likely related to venous isuff Discussion and Recomendations UTI with sepsis - management per medical services H/O PAF - episode of a-fib with RVR overnight - converted to SR with controlled rate - continue oral Cardizem CD - continue low dose Eliquis (d/t advance age) Confusion improving - management per medical services Hypotensive this morning - likely d/t sepsis - reduce antihypertensives - adjust as indicated - gentle IVF hydration - management per medical services Monitor lab closely - replace electrolytes as indicated Further recs will be based on his hospital course We would like to thank medical services for this consult KALLI COURTNEY MD FACP FAC CCDS Aug 15, 2021 15:23
[2021-08-16 00:17] VITALS: BP 124/72
[2021-08-16 03:58] VITALS: BP 120/70
[2021-08-16 05:46] LABS: BASOPHILS % (AUTO) 0 % (0-10); EOSINOPHILS # (AUTO) 0.2 10^3/uL (0.0-0.3); EOSINOPHILS % (AUTO) 3 % (0-10); HEMATOCRIT 32 % (40-54); HEMOGLOBIN 10.5 g/dL (13.3-17.7); LYMPHOCYTES # (AUTO) 1.8 10^3/uL (1.0-4.0); LYMPHOCYTES % (AUTO) 27 % (12-44); MEAN CORPUSCULAR HEMOGLOBIN 30 pg (25-34); MEAN CORPUSCULAR HGB CONC 33 g/dL (32-36); MEAN CORPUSCULAR VOLUME 90 fL (80-99); MEAN PLATELET VOLUME 10.1 fL (9.0-12.2); MONOCYTES # (AUTO) 1.1 10^3/uL (0.0-1.0); MONOCYTES % (AUTO) 17 % (0-12); NEUTROPHILS # (AUTO) 3.3 10^3/uL (1.8-7.8); NEUTROPHILS % (AUTO) 51 % (42-75); PLATELET COUNT 154 10^3/uL (130-400); WHITE BLOOD COUNT 6.5 10^3/uL (4.3-11.0)
[2021-08-16 05:55] LABS: POTASSIUM 4.1 MMOL/L (3.6-5.0)
[2021-08-16] MEDS: POTASSIUM CL 10MEQ/50ML IVPB 50 ML IV SCH (05:58)
[2021-08-16] MEDS: KCL 20 MEQ TAB (K-DUR) PO SCH (05:59)
[2021-08-16] MEDS: inSUlin ASPART (NovoLOG) 1 UNIT/0.01 ML (CHARGE PER UNIT) SC SCH ×6 (05:59→20:26)
[2021-08-16 06:01] LABS: CREATININE SERUM 0.96 MG/DL (0.60-1.30)
[2021-08-16 06:03] LABS: MAGNESIUM 1.8 MG/DL (1.6-2.4)
[2021-08-16] MEDS: MAGNESIUM 1 GM/100 ML IVPB 100 ML IV SCH (06:05)
[2021-08-16 08:36] VITALS: BP 115/67
[2021-08-16] MEDS: ASPIRIN 81 MG CHEW (CHILDREN'S ASA) PO SCH (09:19)
[2021-08-16] MEDS: cefTRIAXone 1 GM PRE-MIX 50 ML IV SCH (09:19)
[2021-08-16] MEDS: APIXABAN 2.5 MG (ELIQUIS) TABLET PO SCH ×2 (09:19→20:26)
--- NOTE | 2021-08-16 09:31 | Progress Note - Cardiology ---
Cardiology SOAP Progress Note Subjective: Sitting up in bed No c/o SOB or CP Objective: I&O/Vital Signs 08/18/21 08/18/21 08/18/21 08/18/21 07:00 08:00 08:10 12:12 Temp 36.7 36.4 Pulse 65 75 59 Resp 18 18 B/P (MAP) 158/85 (109) 103/55 (71) Pulse Ox 97 98 O2 Delivery Room Air Room Air Room Air 08/18/21 12:50 Pulse 50 08/18/21 00:00 Intake Total 1760 ml Output Total 1125 ml Balance 635 ml Weight (Pounds): 215 Weight (Ounces): 0.0 Weight (Calculated Kilograms): 97.644914 Constitutional: AAO x 3, well-developed, well-nourished Respiratory: No accessory muscle use, No respiratory distress; chest expansion is symmetric, chest is bilaterally symmetric, lungs clear to auscultation Cardiovascular: regular rate-rhythm; No JVD; S1 and S2 Gastrointestional: No tender; soft, round, audible bowel sounds Extremities: no lower extremity edema bilateral Neurologic/Psychiatric: grossly intact (moves all extremities) Skin: pallor, other (extensive bruising to arms/hands bilat. Brusing with excoriations to legs bilat. Bruising to ACW) Results/Procedures: Labs Laboratory Tests 08/17/21 15:41: Glucometer 180H 08/17/21 20:09: Glucometer 191H 08/18/21 05:38: White Blood Count 6.9, Red Blood Count 3.81L, Hemoglobin 11.4L, Hematocrit 34L, Mean Corpuscular Volume 89, Mean Corpuscular Hemoglobin 30, Mean Corpuscular Hemoglobin Concent 34, Red Cell Distribution Width 13.6, Platelet Count 194, Mean Platelet Volume 9.9, Immature Granulocyte % (Auto) 2, Neutrophils (%) (Auto) 49, Lymphocytes (%) (Auto) 33, Monocytes (%) (Auto) 10, Eosinophils (%) (Auto) 6, Basophils (%) (Auto) 0, Neutrophils # (Auto) 3.4, Lymphocytes # (Auto) 2.3, Monocytes # (Auto) 0.7, Eosinophils # (Auto) 0.4H, Basophils # (Auto) 0.0, Immature Granulocyte # (Auto) 0.1, Sodium Level 136, Potassium Level 4.7, Chloride Level 104, Carbon Dioxide Level 20L, Anion Gap 12, Blood Urea Nitrogen 22H, Creatinine 0.79, Estimat Glomerular Filtration Rate 87, BUN/Creatinine Ratio 28, Glucose Level 144H, Calcium Level 9.5, Magnesium Level 1.9 08/18/21 11:00: Glucometer 197H A/P: Assessment: UTI with sepsis - management per medical services Confusion - likely secondary to sepsis Episode of a-fib with RVR - Currently SR - required Cardizem gtt - currently off gtt and on oral Cardizem - H/O PAF - documented on ILR transmissions of Apr and May 2020 - Eliquis for stroke prophylaxis. Lower dose because he is also on ASA and age is greater than 85 Hypotensive currently - likely secondary to sepsis Near-syncope in Mar 2020 - s/p ILR implant on 04/20/20 - ILR showing brief WCT in early Nov 2020: probaly A fib, but cannot exclude NSVT. s/p TAVR at on 08/07/[address] Valente - Echo of 04/20/20: LVEF 50%, mild to mod dilatation of LA, mild to mod MR, bioprosthetic AoV with peak grad 20 mmHg and mean grad 11 mmHg, mild tomod TR, RVSP 30 mmHg - Echo of 02-01-21: LVEF 45-50%: mod conc LVH, dilated LA, bioprostheitc aoric valve with peak grad 28 and mean grad 15 mmHg Hypertension - controlled Poor balance - intermittent noncompliance with supportive devices such as cane/walker, recent falls at home CAD - H/O CECY to the LAD at at time of cardiac cath on 07/10/[address] Roman - MPI 01-31-21: mild to mod cardiomegaly with mild to mod global hypokinesis and LVEF 43%, no ischemia or infarction Carotid dz - H/o right carotid stent. - Mild carotid arterial disease without evidence of hemodynamic significance on carotid u/s of 08/22/20 PAD: - Peripheral angiogram was done on 12/03/[address] Palafox which demonstrated moderate calcified disease segment in the right common iliac artery. Very tortuous right distal common iliac artery and external iliac artery. Small AV fistula noted in the distal right SFA filling deep saphenous vein. Mild diffuse disease in the right SFA. No significant disease in the right popliteal artery. At least moderate calcification is noted in the right SFA and popliteal artery. Severe stenosis in the right TP trunk with heavy calcification. Single-vessel runoff below the knee which is an anterior tibial artery which is occluded in the distal segment. Diffusely diseased severe deep peroneal and posterior tibial artery with heavy calcification with no contribution to flow to the foot. In the left lower extremity there was no significant disease in the left common and external iliac artery. Severe ostial stenosis of the left internal iliac artery. Moderate calcified stenosis is noted in the left common femoral artery. Moderate to severe stenosis in the proximal left SFA. Moderate disease calcified in the mid, distal SFA and proximal popliteal artery. Moderate to severe calcified is disease segment in the distal left popliteal artery. 1 vessel runo ff below the left knee which is very likely a posterior tibial artery with subtotal occlusion in the proximal segment. Total occlusion of the deep peroneal and anterior tibial artery. - Last HELADIO done on 05/07/[address] Palafox which showed severely abnormal bilateral HELADIO and TBI. Right HELADIO 0.46, TBI 0.25. Left HELADIO 0.45, TBI 0.35. No resting pain or nonhealing ulcers with single-vessel runoff bilaterally. Managed conservatively Hyperlipidemia - statin - managed by PCP Back pain - Per CT Lumbar spin of Apr 19, 2020: Acute T12 fracture Bilateral leg swelling, chronic - likely related to venous isuff Plan: UTI with sepsis - management per medical services - improving H/O PAF - episode of a-fib with RVR overnight on 08-14-21 - converted to SR with controlled rate - continue oral Cardizem CD - continue low dose Eliquis (d/t advance age) Confusion improving - management per medical services Hypotension improved following IVF - restart BB and ANGIE at lower dose Plan per medical services is to discharge today, spoke with Dr. Holland this morning SHERRI PURDY Aug 16, 2021 09:31
[2021-08-16] MEDS ORDERED: CARV3.122 PO (09:38)
[2021-08-16] MEDS ORDERED: RAMI5CAP65 PO (09:38)
--- NOTE | 2021-08-16 11:45 | Progress Note - Hospitalist ---
Subjective HPI/CC On Admission Date Seen by Provider: Aug 16, 2021 Time Seen by Provider: 11:43 Pt is an 86yoCM with a PMH of a fib, HLD, HTN, IDDMII who presented to outside ER due to confusion. He was found to be septic from a UTI there and transferred here for admission. I spoke with his daughter briefly who states he was very c onfused yesterday but had not been by to see him today but heard he remained confused. On my exam he was not able to tell me much of what brought him here but that he felt better. He was able to tell me about his daughter who works here and about why his nickname was Maciej. 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 Subjective/Events-last exam Pt reports doing well. No complaints. Saw with Renetta Santos NP for cardiology. I called and updated his daughter Angie. Focused Exam Lactate Level 08/13/21 16:23: Lactic Acid Level 1.34 Objective Exam Vital Signs Vital Signs Date Time Temp Pulse Resp B/P (MAP) Pulse Ox O2 Delivery O2 Flow Rate FiO2 08/16/21 08:36 36.9 75 18 115/67 (83) 97 Room Air Capillary Refill : General Appearance: No Apparent Distress, Chronically ill Respiratory: Lungs Clear, No Respiratory Distress Cardiovascular: Regular Rate, Rhythm, No Murmur Neurologic/Psychiatric: Alert, Oriented x3 Results/Procedures Lab Laboratory Tests 08/16/21 05:15 Patient resulted labs reviewed. Assessment/Plan Assessment and Plan Assess & Plan/Chief Complaint Sepsis due to UTI Weakness Confusion Continue Rocephin Await cultures results from outside hospital- records requested, awaiting PT/OT A-fib Cardiology consulted, appreciate recs Eliquis for stroke ppx Continue home meds as BP allows HTN HLD IDDMII No acute needs, continue home meds DVt ppx: Already on Eliquis Critical Care Critically Ill Patient Diagnosis/Problems Diagnosis/Problems (1) UTI (urinary tract infection) (2) Sepsis (3) Insulin dependent diabetes mellitus Status: Chronic (4) CAD (coronary artery disease) Status: Chronic (5) Essential (primary) hypertension Status: Chronic (6) PAD (peripheral artery disease) (7) Prophylactic measure LENNIE GREEN MD Aug 16, 2021 11:45
[2021-08-16 12:07] VITALS: BP 130/71
--- NOTE | 2021-08-16 14:26 | Progress Note - Cardiology ---
Cardiology SOAP Progress Note Subjective: No cp or palp or syncope Shortness of breath has improved Weakness and malaise have improved No n/v/d Objective: I&O/Vital Signs 08/16/21 08/16/21 08/16/21 08/16/21 03:58 07:00 08:00 08:36 Temp 36.4 36.9 Pulse 79 76 75 Resp 22 18 B/P (MAP) 120/70 (87) 115/67 (83) Pulse Ox 98 97 O2 Delivery Room Air Room Air Room Air 08/16/21 12:07 Temp 36.6 Pulse 74 Resp 18 B/P (MAP) 130/71 (90) Pulse Ox 97 O2 Delivery Room Air 08/16/21 00:00 Intake Total 500 ml Output Total 300 ml Balance 200 ml Weight (Pounds): 215 Weight (Ounces): 0.0 Weight (Calculated Kilograms): 97.399030 Constitutional: AAO x 3, well-developed, well-nourished Respiratory: No accessory muscle use, No respiratory distress; chest expansion is symmetric, chest is bilaterally symmetric, lungs clear to auscultation Cardiovascular: regular rate-rhythm; No JVD; S1 and S2 Gastrointestional: No tender; soft, round, audible bowel sounds Extremities: no lower extremity edema bilateral Neurologic/Psychiatric: grossly intact (moves all extremities) Skin: pallor, other (extensive bruising to arms/hands bilat. Brusing with excoriations to legs bilat. Bruising to ACW) Results/Procedures: Labs Laboratory Tests 08/15/21 15:44: Glucometer 142H 08/15/21 20:21: Glucometer 126H 08/16/21 05:15: White Blood Count 6.5, Red Blood Count 3.56L, Hemoglobin 10.5L, Hematocrit 32L, Mean Corpuscular Volume 90, Mean Corpuscular Hemoglobin 30, Mean Corpuscular Hemoglobin Concent 33, Red Cell Distribution Width 13.5, Platelet Count 154, Mean Platelet Volume 10.1, Immature Granulocyte % (Auto) 1, Neutrophils (%) (Auto) 51, Lymphocytes (%) (Auto) 27, Monocytes (%) (Auto) 17H, Eosinophils (%) (Auto) 3, Basophils (%) (Auto) 0, Neutrophils # (Auto) 3.3, Lymphocytes # (Auto) 1.8, Monocytes # (Auto) 1.1H, Eosinophils # (Auto) 0.2, Basophils # (Auto) 0.0, Immature Granulocyte # (Auto) 0.1, Sodium Level 134L, Potassium Level 4.1, Chloride Level 101, Carbon Dioxide Level 20L, Anion Gap 13, Blood Urea Nitrogen 26H, Creatinine 0.96, Estimat Glomerular Filtration Rate 77, BUN/Creatinine Ratio 27, Glucose Level 98, Calcium Level 9.0, Magnesium Level 1.8 08/16/21 05:35: Glucometer 100 08/16/21 11:24: Glucometer 134H Laboratory Tests 08/15/21 04:54 08/16/21 05:15 A/P: Assessment: UTI with sepsis and confusion - management per Medical services Episode of a-fib with RVR - Currently SR and on oral Cardizem - H/O PAF - documented on ILR transmissions of Apr and May 2020 - Eliquis for stroke prophylaxis. Lower dose because he is also on ASA and age is greater than 85 Near-syncope in Mar 2020 - s/p ILR implant on 04/20/20 - ILR showing brief WCT in early Nov 2020: probaly A fib, but cannot exclude NSVT. s/p TAVR at on 08/07/[address] Valente - Echo of 04/20/20: LVEF 50%, mild to mod dilatation of LA, mild to mod MR, bioprosthetic AoV with peak grad 20 mmHg and mean grad 11 mmHg, mild tomod TR, RVSP 30 mmHg - Echo of 02-01-21: LVEF 45-50%: mod conc LVH, dilated LA, bioprostheitc aoric valve with peak grad 28 and mean grad 15 mmHg Hypertension - controlled Poor balance - intermittent noncompliance with supportive devices such as cane/walker, recent falls at home CAD - H/O CECY to the LAD at at time of cardiac cath on 07/10/[address] Roman - MPI 01-31-21: mild to mod cardiomegaly with mild to mod global hypokinesis and LVEF 43%, no ischemia or infarction Carotid dz - H/o right carotid stent. - Mild carotid arterial disease without evidence of hemodynamic significance on carotid u/s of 08/22/20 PAD: - Peripheral angiogram was done on 12/03/[address] Palafox which demonstrated moderate calcified disease segment in the right common iliac artery. Very tortuous right distal common iliac artery and external iliac artery. Small AV f istula noted in the distal right SFA filling deep saphenous vein. Mild diffuse disease in the right SFA. No significant disease in the right popliteal artery. At least moderate calcification is noted in the right SFA and popliteal artery. Severe stenosis in the right TP trunk with heavy calcification. Single-vessel runoff below the knee which is an anterior tibial artery which is occluded in the distal segment. Diffusely diseased severe deep peroneal and posterior tibial artery with heavy calcification with no contribution to flow to the foot. In the left lower extremity there was no significant disease in the left common and external iliac artery. Severe ostial stenosis of the left internal iliac artery. Moderate calcified stenosis is noted in the left common femoral artery. Moderate to severe stenosis in the proximal left SFA. Moderate disease calcified in the mid, distal SFA and proximal popliteal artery. Moderate to severe calcified is disease segment in the distal left popliteal artery. 1 vessel runoff below the left knee which is very likely a posterior tibial artery with subtotal occlusion in the proximal segment. Total occlusion of the deep peroneal and anterior tibial artery. - Last HELADIO done on 05/07/[address] Palafox which showed severely abnormal bilateral HELADIO and TBI. Right HELADIO 0.46, TBI 0.25. Left HELADIO 0.45, TBI 0.35. No resting pain or nonhealing ulcers with single-vessel runoff bilaterally. Managed conservatively Hyperlipidemia - statin - managed by PCP Back pain - Per CT Lumbar spin of Apr 19, 2020: Acute T12 fracture Bilateral leg swelling, chronic - likely related to venous isuff Plan: Cardiac status stable Continue current regimen Ok to d/c from cardiac standpoint Outpt f/u advised I spoke with him and answered his CV-related questions KALLI COURTNEY MD FACP FAC CCDS Aug 16, 2021 14:26
--- NOTE | 2021-08-16 14:28 | Occupational Ther Daily Note ---
OT Current Status-Daily Note Subjective Pt up in recliner, agreeable to OT Tx. Pt unable to state what building he is in, but knows he is in [place] Mental Status/Objective Patient Orientation: Person, Confused ADL-Treatment Therapy Code Descriptions/Definitions Functional [place] Measure: 0=Not Assessed/NA 4=Minimal Assistance 1=Total Assistance 5=Supervision or Setup 2=Maximal Assistance 6=Modified [place] 3=Moderate Assistance 7=Complete IndependenceSCALE: Activities may be completed with or without assistive devices. 8-Xvalrgjzzg-zxwbxwd completes the activity by him/herself with no assistance from a helper. 5-Set-up or Clean-up Assistance-helper sets up or cleans up; patient completes activity. [place] assists only prior to or following the activity. 4-Supervision or Touching Assistance-helper provides verbal cues and/or touching/steadying and/or contact guard assistance as patient completes activity. Assistance may be provided throughout the activity or intermittently. 3-Partial/Moderate Assistance-helper does LESS THAN HALF the effort. [place] lifts, holds or supports trunk or limbs, but provides less than half the effort. 2-Substantial/Maximal Assistance-helper does MORE THAN HALF the effort. [place] lifts or holds trunk or limbs and provides more than half the effort. 8-Zyxzqijsm-tuqriw does ALL the effort. Patient does none of the effort to complete the activity. Or, the assistance of 2 or more helpers is required for the patient to complete the activity. If activity was not attempted, code reason: 7-Patient Refused. 9-Not Applicable-not attempted and the patient did not perform the activity before the current illness, exacerbation or injury. 10-Not Attempted due to Environmental Limitations-(lack of equipment, weather restraints, etc.). 88-Not Attempted due to Medical Conditions or Safety Concerns. Other Treatment Pt up in recliner, agreeable to OT Tx. pt declined ADLs at this time, but agreeable to BUE exercises. Pt completed x10 reps of the following in order to increase strength and activity tolerance: shoulder flexion, elbow flexion/extension and front punch. Post tx, pt up in recliner,c all light in reach and all needs met. Chair alarm activated. Education OT Patient Education: Correct positioning, Energy conservation, Modified ADL techniques, Progress toward Goal/Update tx plan, Purpose of tx/functional activities, Rehab process Teaching Recipient: Patient Teaching Methods: Discussion Response to Teaching: Verbalize Understanding OT Fpc Goals Grain Miller Helper Goals Time Frame: Aug 26, 2021 Eating (QC): 5 Oral Hygiene (QC): 5 Toileting Hygiene (QC): 4 Shower/Bathe Self (QC): 4 Upper Body Dressing (QC): 4 Lower Body Dressing (QC): 4 On/Off Footwear (QC): 4 1=Demonstrate adherence to instructed precautions during ADL tasks. 2=Patient will verbalize/demonstrate understanding of assistive devices/modifications for ADL. 3=Patient will improve strength/tolerance for activity to enable patient to perform ADL's. OT Education/Plan Problem List/Assessment Assessment: Decreased Activ Tolerance, Decreased Safety Aware, Decreased UE Strength, Impaired Cognition, Impaired Funct Balance, Impaired I ADL's, Impaired Self-Care Skills Discharge Recommendations Plan/Recommendations: Continue POC Treatment Plan/Plan of Care Patient would benefit from OT for education, treatment and training to promote independence in ADL's, mobility, safety and/or upper extremity function for ADL's. Plan of Care: ADL Retraining, Cognitive Retraining, Functional Mobility, UE Funct Exercise/Act Treatment Duration: Aug 26, 2021 Frequency: 3 times per week (3-5 times per week) Estimated Hrs Per Day: .25 hour per day Rehab Potential: Guarded Time/GCodes Start Time: 13:55 Stop Time: 14:05 Total Time Billed (hr/min): 10 Billed Treatment Time 1, EX KENIA LUZ OT Aug 16, 2021 14:28
--- NOTE | 2021-08-16 15:24 | Physical Therapy Daily Note ---
PT Daily Note-Current Subjective Pt agrees to PT. Pt has no complaints of pain. Mental Status Patient Orientation: Confused Attachments: Iraheta Catheter Transfers SCALE: Activities may be completed with or without assistive devices. 2-Oewavtbczf-hcpqnow completes the activity by him/herself with no assistance from a helper. 5-Set-up or Clean-up Assistance-helper sets up or cleans up; patient completes activity. [place] assists only prior to or following the activity. 4-Supervision or Touching Assistance-helper provides verbal cues and/or touching/steadying and/or contact guard assistance as patient completes activity. Assistance may be provided throughout the activity or intermittently. 3-Partial/Moderate Assistance-helper does LESS THAN HALF the effort. [place] lifts, holds or supports trunk or limbs, but provides less than half the effort. 2-Substantial/Maximal Assistance-helper does MORE THAN HALF the effort. [place] lifts or holds trunk or limbs and provides more than half the effort. 2-Lufghsyxg-hyqgca does ALL the effort. Patient does none of the effort to complete the activity. Or, the assistance of 2 or more helpers is required for the patient to complete the activity. If activity was not attempted, code reason: 7-Patient Refused. 9-Not Applicable-not attempted and the patient did not perform the activity before the current illness, exacerbation or injury. 10-Not Attempted due to Environmental Limitations-(lack of equipment, weather restraints, etc.). 88-Not Attempted due to Medical Conditions or Safety Concerns. Exercises Supine Ex: Ankle pumps, Quad Set, Glut sets, Straight leg raise Supine Reps: 10 Seated Therapy Exercises: Ankle pumps, Long arc quads, Hip flexion Seated Reps: 10 Treatments Pt reclined in chair upon arrival of PT. Pt performed supine and seated EX. All needs met, call light in hand. Assessment Current Status: Fair Progress Pt needed reinforcement on some EX. PT Snf Goals Watershed Tender Goals PT Watershed Tender Goals Time Frame: September 02, 2021 Roll Left & Right (QC): 4 Sit to Lying (QC): 4 Lying-Sitting on Side/Bed(QC): 4 Sit to Stand (QC): 4 Chair/Ekd-ef-Ecnui Xfer(QC): 4 Toilet Transfer (QC): 4 Walk 10 feet (QC): 4 Walk 50ft with 2 Turns (QC): 4 PT Plan Treatment/Plan Treatment Plan: Continue Plan of Care Treatment Plan: Bed Mobility, Education, Functional Activity Romy, Functional Strength, Gait, Safety, Therapeutic Exercise, Transfers Treatment Duration: September 02, 2021 Frequency: 6 times per week Estimated Hrs Per Day: .25 hour per day Time/GCodes Time In: 1500 Time Out: 1515 Total Billed Treatment Time: 15 Total Billed Treatment 1, EX (15 min) LEXI HUITRON MEDICAL TRANSCRIPTION EDITOR Aug 16, 2021 15:24
[2021-08-16 16:00] VITALS: BP 127/65
[2021-08-16 19:32] VITALS: BP 109/60
[2021-08-16] MEDS: CEPHALEXIN 250 MG (KEFLEX) CAP PO SCH (20:26)
[2021-08-17] VITALS (7 sets, daily range): BP systolic 107–136; BP diastolic 56–81
[2021-08-17 05:50] LABS: BASOPHILS % (AUTO) 0 % (0-10); EOSINOPHILS # (AUTO) 0.5 10^3/uL (0.0-0.3); EOSINOPHILS % (AUTO) 7 % (0-10); HEMATOCRIT 35 % (40-54); HEMOGLOBIN 11.5 g/dL (13.3-17.7); LYMPHOCYTES % (AUTO) 31 % (12-44); MEAN CORPUSCULAR HEMOGLOBIN 30 pg (25-34); MEAN CORPUSCULAR HGB CONC 33 g/dL (32-36); MEAN CORPUSCULAR VOLUME 90 fL (80-99); MEAN PLATELET VOLUME 10.2 fL (9.0-12.2); MONOCYTES # (AUTO) 0.8 10^3/uL (0.0-1.0); MONOCYTES % (AUTO) 12 % (0-12); NEUTROPHILS % (AUTO) 47 % (42-75); PLATELET COUNT 190 10^3/uL (130-400); WHITE BLOOD COUNT 6.3 10^3/uL (4.3-11.0)
[2021-08-17 06:02] LABS: POTASSIUM 4.5 MMOL/L (3.6-5.0)
[2021-08-17 06:03] LABS: CALCIUM 9.4 MG/DL (8.5-10.1)
[2021-08-17] MEDS: POTASSIUM CL 10MEQ/50ML IVPB 50 ML IV SCH (06:06)
[2021-08-17] MEDS: KCL 20 MEQ TAB (K-DUR) PO SCH (06:06)
[2021-08-17 06:07] LABS: CREATININE SERUM 1.05 MG/DL (0.60-1.30)
[2021-08-17] MEDS: inSUlin ASPART (NovoLOG) 1 UNIT/0.01 ML (CHARGE PER UNIT) SC SCH ×4 (06:07→21:03)
[2021-08-17 06:10] LABS: MAGNESIUM 1.9 MG/DL (1.6-2.4)
[2021-08-17] MEDS: MAGNESIUM 1 GM/100 ML IVPB 100 ML IV SCH (06:12)
[2021-08-17] MEDS: lisINopril 5 MG (PRINIVIL) TABLET PO SCH (08:41)
[2021-08-17] MEDS: APIXABAN 2.5 MG (ELIQUIS) TABLET PO SCH ×2 (08:41→20:43)
[2021-08-17] MEDS: ASPIRIN 81 MG CHEW (CHILDREN'S ASA) PO SCH (08:41)
[2021-08-17] MEDS: CEPHALEXIN 250 MG (KEFLEX) CAP PO SCH ×2 (08:41→20:43)
--- NOTE | 2021-08-17 10:16 | Physical Therapy Daily Note ---
PT Daily Note-Current Subjective Patient yells, "I messed myself." PT and ESTATE PLANNING [place] in to assist patient. Mental Status Patient Orientation: Confused Attachments: [place]heta Catheter Transfers SCALE: Activities may be completed with or without assistive devices. 3-Qbgwsimqly-gzxvvmt completes the activity by him/herself with no assistance from a helper. 5-Set-up or Clean-up Assistance-helper sets up or cleans up; patient completes activity. [place] assists only prior to or following the activity. 4-Supervision or Touching Assistance-helper provides verbal cues and/or touching/steadying and/or contact guard assistance as patient completes acti vity. Assistance may be provided throughout the activity or intermittently. 3-Partial/Moderate Assistance-helper does LESS THAN HALF the effort. [place] lifts, holds or supports trunk or limbs, but provides less than half the effort. 2-Substantial/Maximal Assistance-helper does MORE THAN HALF the effort. [place] lifts or holds trunk or limbs and provides more than half the effort. 6-Lfelldkdi-iauqno does ALL the effort. Patient does none of the effort to complete the activity. Or, the assistance of 2 or more helpers is required for the patient to complete the activity. If activity was not attempted, code reason: 7-Patient Refused. 9-Not Applicable-not attempted and the patient did not perform the activity before the current illness, exacerbation or injury. 10-Not Attempted due to Environmental Limitations-(lack of equipment, weather restraints, etc.). 88-Not Attempted due to Medical Conditions or Safety Concerns. Sit to Stand (QC): 3 patient stood mod assist for 5 min while PCT cleansed after incontinent BM Gait Training Distance: 15' Walk 10 feet (QC): 2 Gait Assistive Device: FWW extended UE's with FWW use/left lean/shuffle gait sequence Assessment Current Status: Poor Progress Patient very unsteady on his feet requiring mod to max assist for patient safety. Patient very confused and requires continuous VC's and redirection to remain on task. PT Skilled Nursing Goals Skilled Nursing Goals PT Property Utilization Manager Goals Time Frame: September 02, 2021 Roll Left & Right (QC): 4 Sit to Lying (QC): 4 Lying-Sitting on Side/Bed(QC): 4 Sit to Stand (QC): 4 Chair/Qjb-kk-Mldyq Xfer(QC): 4 Toilet Transfer (QC): 4 Walk 10 feet (QC): 4 Walk 50ft with 2 Turns (QC): 4 PT Plan Treatment/Plan Treatment Plan: Continue Plan of Care Treatment Plan: Bed Mobility, Education, Functional Activity Romy, Functional Strength, Gait, Safety, Therapeutic Exercise, Transfers Treatment Duration: September 02, 2021 Frequency: 6 times per week Estimated Hrs Per Day: .25 hour per day Time/GCodes Time In: 905 Time Out: 916 Total Billed Treatment Time: 11 Total Billed Treatment 1 visit FA 11 min OSCAR SR PT Aug 17, 2021 10:16
--- NOTE | 2021-08-17 11:21 | Occupational Ther Daily Note ---
OT Current Status-Daily Note Subjective Pt alert, sitting in recliner. Pt agrees to therapy. No c/o pain. Pt able to answer dietary questions for lunch choices and follow directions appropriately. Mental Status/Objective Patient Orientation: Person, Confused, Place Attachments: IV ADL-Treatment Therapy Code Descriptions/Definitions Functional [place] Measure: 0=Not Assessed/NA 4=Minimal Assistance 1=Total Assistance 5=Supervision or Setup 2=Maximal Assistance 6=Modified [place] 3=Moderate Assistance 7=Complete IndependenceSCALE: Activities may be completed with or without assistive devices. 5-Rzzwvbnghl-pnlsfje completes the activity by him/herself with no assistance from a helper. 5-Set-up or Clean-up Assistance-helper sets up or cleans up; patient completes activity. [place] assists only prior to or following the activity. 4-Supervision or Touching Assistance-helper provides verbal cues and/or touching/steadying and/or contact guard assistance as patient completes activity. Assistance may be provided throughout the activity or intermittently. 3-Partial/Moderate Assistance-helper does LESS THAN HALF the effort. [place] lifts, holds or supports trunk or limbs, but provides less than half the effort. 2-Substantial/Maximal Assistance-helper does MORE THAN HALF the effort. [place] lifts or holds trunk or limbs and provides more than half the effort. 3-Tieofyhxo-krbhal does ALL the effort. Patient does none of the effort to complete the activity. Or, the assistance of 2 or more helpers is required for the patient to complete the activity. If activity was not attempted, code reason: 7-Patient Refused. 9-Not Applicable-not attempted and the patient did not perform the activity before the current illness, exacerbation or injury. 10-Not Attempted due to Environmental Limitations-(lack of equipment, weather restraints, etc.). 88-Not Attempted due to Medical Conditions or Safety Concerns. Other Treatment Pt declines ADLs at this time. Pt agrees to B UE exercises. Skilled instruction for correct technique while completing exercises against gravity. 4 exercises completed 2 sets 15 then 10 reps due to pt's fatigue. After session, pt sitting in recliner with call light/phone in reach. All needs met in room. OT Snf Goals Snf Goals Time Frame: Aug 26, 2021 Eating (QC): 5 Oral Hygiene (QC): 5 Toileting Hygiene (QC): 4 Shower/Bathe Self (QC): 4 Upper Body Dressing (QC): 4 Lower Body Dressing (QC): 4 On/Off Footwear (QC): 4 1=Demonstrate adherence to instructed precautions during ADL tasks. 2=Patient will verbalize/demonstrate understanding of assistive devices/modifications for ADL. 3=Patient will improve strength/tolerance for activity to enable patient to perform ADL's. OT Education/Plan Problem List/Assessment Assessment: Decreased Activ Tolerance, Decreased UE Strength Discharge Recommendations Plan/Recommendations: Continue POC Treatment Plan/Plan of Care Patient would benefit from OT for education, treatment and training to promote independence in ADL's, mobility, safety and/or upper extremity function for ADL's. Plan of Care: ADL Retraining, Cognitive Retraining, Functional Mobility, UE Funct Exercise/Act Treatment Duration: Aug 26, 2021 Frequency: 3 times per week (3-5 times per week) Estimated Hrs Per Day: .25 hour per day Rehab Potential: Guarded Time/GCodes Start Time: 11:04 Stop Time: 11:16 Total Time Billed (hr/min): 12 Billed Treatment Time 1 visit-EX 1 (12 min) MANDA HURTADO Aug 17, 2021 11:21
--- NOTE | 2021-08-17 11:47 | Progress Note - Hospitalist ---
Subjective HPI/CC On Admission Date Seen by Provider: Aug 17, 2021 Time Seen by Provider: 11:41 Pt is an 86yoCM with a PMH of a fib, HLD, HTN, IDDMII who presented to outside ER due to confusion. He was found to be septic from a UTI there and transferred here for admission. I spoke with his daughter briefly who states he was very c onfused yesterday but had not been by to see him today but heard he remained confused. On my exam he was not able to tell me much of what brought him here but that he felt better. He was able to tell me about his daughter who works here and about why his nickname was Maciej. 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 Subjective/Events-last exam Pt reports doing well. Discussed plan to work with PT to get strength back. Daughter states they are ready for him at [facility] when he is physically stronger. Did not ask for swing bed eval to me but did ask PT for that. Discussed with swing bed nurse who will review chart. Objective Exam Vital Signs Vital Signs Date Time Temp Pulse Resp B/P (MAP) Pulse Ox O2 Delivery O2 Flow Rate FiO2 08/17/21 08:20 36.5 71 16 108/57 (74) 95 Room Air Capillary Refill : General Appearance: No Apparent Distress, WD/WN, Chronically ill Respiratory: Lungs Clear, No Respiratory Distress Cardiovascular: Regular Rate, Rhythm, No Murmur Neurologic/Psychiatric: Alert, Other (oriented to person and place (baseline)) Results/Procedures Lab Laboratory Tests 08/17/21 05:11 Patient resulted labs reviewed. Assessment/Plan Assessment and Plan Assess & Plan/Chief Complaint Sepsis due to UTI Weakness Confusion/dementia Continue Keflex per c/s from [place] PT/OT Swing Bed Evaluate A-fib Cardiology consulted, appreciate recs Eliquis for stroke ppx Continue home meds as BP allows HTN HLD IDDMII No acute needs, continue home meds DVt ppx: Already on Eliquis Critical Care Critically Ill Patient Diagnosis/Problems Diagnosis/Problems (1) UTI (urinary tract infection) (2) Sepsis (3) Insulin dependent diabetes mellitus Status: Chronic (4) CAD (coronary artery disease) Status: Chronic (5) Essential (primary) hypertension Status: Chronic (6) PAD (peripheral artery disease) (7) Prophylactic measure LENNIE GREEN MD Aug 17, 2021 11:47
--- NOTE | 2021-08-17 17:17 | Progress Note - Cardiology ---
Cardiology SOAP Progress Note Subjective: No cp or palp or syncope or shortness of breath Gen malaise and weakness present Objective: I&O/Vital Signs 08/17/21 08/17/21 08/17/21 08/17/21 07:40 08:00 08:20 12:00 Temp 36.5 36.4 Pulse 62 71 49 Resp 16 20 B/P (MAP) 108/57 (74) 107/64 (78) Pulse Ox 95 99 O2 Delivery Room Air Room Air Room Air 08/17/21 08/17/21 13:45 15:52 Temp 36.5 Pulse 63 66 Resp 19 B/P (MAP) 110/56 (74) Pulse Ox 96 O2 Delivery Room Air 08/17/21 00:00 Intake Total 2954 ml Output Total 1550 ml Balance 1404 ml Weight (Pounds): 215 Weight (Ounces): 0.0 Weight (Calculated Kilograms): 97.163154 Constitutional: AAO x 3, well-developed, well-nourished Respiratory: No accessory muscle use, No respiratory distress; chest expansion is symmetric, chest is bilaterally symmetric, lungs clear to auscultation Cardiovascular: regular rate-rhythm; No JVD; S1 and S2 Gastrointestional: No tender; soft, round, audible bowel sounds Extremities: no lower extremity edema bilateral Neurologic/Psychiatric: grossly intact (moves all extremities) Skin: pallor, other (extensive bruising to arms/hands bilat. Brusing with excoriations to legs bilat. Bruising to ACW) Results/Procedures: Labs Laboratory Tests 08/16/21 20:07: Glucometer 169H 08/17/21 05:11: White Blood Count 6.3, Red Blood Count 3.83L, Hemoglobin 11.5L, Hematocrit 35L, Mean Corpuscular Volume 90, Mean Corpuscular Hemoglobin 30, Mean Corpuscular Hemoglobin Concent 33, Red Cell Distribution Width 13.7, Platelet Count 190, Mean Platelet Volume 10.2, Immature Granulocyte % (Auto) 2, Neutrophils (%) (Auto) 47, Lymphocytes (%) (Auto) 31, Monocytes (%) (Auto) 12, Eosinophils (%) (Auto) 7, Basophils (%) (Auto) 0, Neutrophils # (Auto) 3.0, Lymphocytes # (Auto) 2.0, Monocytes # (Auto) 0.8, Eosinophils # (Auto) 0.5H, Basophils # (Auto) 0.0, Immature Granulocyte # (Auto) 0.1, Sodium Level 134L, Potassium Level 4.5, Chloride Level 101, Carbon Dioxide Level 19L, Anion Gap 14, Blood Urea Nitrogen 30H, Creatinine 1.05, Estimat Glomerular Filtration Rate 69, BUN/Creatinine Ratio 29, Glucose Level 141H, Calcium Level 9.4, Magnesium Level 1.9 08/17/21 11:24: Glucometer 178H 08/17/21 15:41: Glucometer 180H Laboratory Tests 08/16/21 05:15 08/17/21 05:11 A/P: Assessment: UTI with sepsis and confusion - management per Medical services Episode of a-fib with RVR - Currently SR and on oral Cardizem - H/O PAF - documented on ILR transmissions of Apr and May 2020 - Eliquis for stroke prophylaxis. Lower dose because he is also on ASA and age is greater than 85 Near-syncope in Mar 2020 - s/p ILR implant on 04/20/20 - ILR showing brief WCT in early Nov 2020: probaly A fib, but cannot exclude NSVT. s/p TAVR at on 08/07/[address] Valente - Echo of 04/20/20: LVEF 50%, mild to mod dilatation of LA, mild to mod MR, bioprosthetic AoV with peak grad 20 mmHg and mean grad 11 mmHg, mild tomod TR, RVSP 30 mmHg - Echo of 02-01-21: LVEF 45-50%: mod conc LVH, dilated LA, bioprostheitc aoric valve with peak grad 28 and mean grad 15 mmHg Hypertension - controlled Poor balance - intermittent noncompliance with supportive devices such as cane/walker, recent falls at home CAD - H/O CECY to the LAD at at time of cardiac cath on 07/10/[address] Roman - [facility] 01-31-21: mild to mod cardiomegaly with mild to mod global hypokinesis and LVEF 43%, no ischemia or infarction Carotid dz - H/o right carotid stent. - Mild carotid arterial disease without evidence of hemodynamic significance on carotid u/s of 08/22/20 PAD: - Peripheral angiogram was done on 12/03/[address] Palafox which demonstrated moderate calcified disease segment in the right common iliac artery. Very tortuous right distal common iliac artery and external iliac artery. Small AV fistula noted in the distal right SFA filling deep saphenous vein. Mild diffuse disease in the right SFA. No significant disease in the right popliteal artery. At least moderate calcification is noted in the right SFA and popliteal artery. Severe stenosis in the right TP trunk with heavy calcification. Single-vessel runoff below the knee which is an anterior tibial artery which is occluded in the distal segment. Diffusely diseased severe deep peroneal and posterior tibial artery with heavy calcification with no contribution to flow to the foot. In the left lower extremity there was no significant disease in the left common and external iliac artery. Severe ostial stenosis of the left internal iliac artery. Moderate calcified stenosis is noted in the left common femoral artery. Moderate to severe stenosis in the proximal left SFA. Moderate disease calcified in the mid, distal SFA and proximal popliteal artery. Moderate to severe calcified is disease segment in the distal left popliteal artery. 1 vessel runoff below the left knee which is very likely a posterior tibial artery with subtotal occlusion in the proximal segment. Total occlusion of the deep peroneal and anterior tibial artery. - Last HELADIO done on 05/07/[address] Palafox which showed severely abnormal bilateral HELADIO and TBI. Right HELADIO 0.46, TBI 0.25. Left HELADIO 0.45, TBI 0.35. No resting pain or nonhealing ulcers with single-vessel runoff bilaterally. Managed conservatively Hyperlipidemia - statin - managed by PCP Back pain - Per CT Lumbar spin of Apr 19, 2020: Acute T12 fracture Bilateral leg swelling, chronic - likely related to venous isuff Plan: Cardiac status stable Continue current regimen Ok to d/c from cardiac standpoint Outpt f/u advised I spoke with him and answered his CV-related questions KALLI COURTNEY MD FACP FAC CCDS Aug 17, 2021 17:17
[2021-08-18 03:06] VITALS: BP 121/66
[2021-08-18 05:45] LABS: BASOPHILS % (AUTO) 0 % (0-10); EOSINOPHILS # (AUTO) 0.4 10^3/uL (0.0-0.3); EOSINOPHILS % (AUTO) 6 % (0-10); HEMATOCRIT 34 % (40-54); HEMOGLOBIN 11.4 g/dL (13.3-17.7); LYMPHOCYTES # (AUTO) 2.3 10^3/uL (1.0-4.0); LYMPHOCYTES % (AUTO) 33 % (12-44); MEAN CORPUSCULAR HEMOGLOBIN 30 pg (25-34); MEAN CORPUSCULAR HGB CONC 34 g/dL (32-36); MEAN CORPUSCULAR VOLUME 89 fL (80-99); MEAN PLATELET VOLUME 9.9 fL (9.0-12.2); MONOCYTES # (AUTO) 0.7 10^3/uL (0.0-1.0); MONOCYTES % (AUTO) 10 % (0-12); NEUTROPHILS # (AUTO) 3.4 10^3/uL (1.8-7.8); NEUTROPHILS % (AUTO) 49 % (42-75); PLATELET COUNT 194 10^3/uL (130-400); WHITE BLOOD COUNT 6.9 10^3/uL (4.3-11.0)
[2021-08-18 06:10] LABS: POTASSIUM 4.7 MMOL/L (3.6-5.0)
[2021-08-18 06:11] LABS: CALCIUM 9.5 MG/DL (8.5-10.1)
[2021-08-18 06:15] LABS: CREATININE SERUM 0.79 MG/DL (0.60-1.30)
[2021-08-18 06:18] LABS: MAGNESIUM 1.9 MG/DL (1.6-2.4)
[2021-08-18] MEDS: inSUlin ASPART (NovoLOG) 1 UNIT/0.01 ML (CHARGE PER UNIT) SC SCH ×4 (06:30→20:06)
[2021-08-18] MEDS: POTASSIUM CL 10MEQ/50ML IVPB 50 ML IV SCH (06:31)
[2021-08-18] MEDS: KCL 20 MEQ TAB (K-DUR) PO SCH (06:31)
[2021-08-18] MEDS: MAGNESIUM 1 GM/100 ML IVPB 100 ML IV SCH (06:31)
[2021-08-18 08:10] VITALS: BP 158/85
[2021-08-18] MEDS: CEPHALEXIN 250 MG (KEFLEX) CAP PO SCH ×2 (08:28→20:07)
[2021-08-18] MEDS: ASPIRIN 81 MG CHEW (CHILDREN'S ASA) PO SCH (08:28)
[2021-08-18] MEDS: APIXABAN 2.5 MG (ELIQUIS) TABLET PO SCH ×2 (08:28→20:07)
[2021-08-18] MEDS: lisINopril 5 MG (PRINIVIL) TABLET PO SCH (08:28)
--- NOTE | 2021-08-18 09:14 | Progress Note - Hospitalist ---
Subjective HPI/CC On Admission Date Seen by Provider: Aug 18, 2021 Time Seen by Provider: 09:07 Pt is an 86yoCM with a PMH of a fib, HLD, HTN, IDDMII who presented to outside ER due to confusion. He was found to be septic from a UTI there and transferred here for admission. I spoke with his daughter briefly who states he was very c onfused yesterday but had not been by to see him today but heard he remained confused. On my exam he was not able to tell me much of what brought him here but that he felt better. He was able to tell me about his daughter who works here and about why his nickname was Maciej. 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 Subjective/Events-last exam pt reports feeling well. Eating breakfast. ABout to work with therapy. I called and discussed with his daughter Angie about plan to work on strength through the weekend and see if he's then able to get to [facility] but if not we will have to look into a possible SNF placement. Objective Exam Vital Signs Vital Signs Date Time Temp Pulse Resp B/P (MAP) Pulse Ox O2 Delivery O2 Flow Rate FiO2 08/18/21 08:10 36.7 75 18 158/85 (109) 97 Room Air Capillary Refill : General Appearance: No Apparent Distress, WD/WN Respiratory: Lungs Clear, No Respiratory Distress Cardiovascular: Regular Rate, Rhythm, No Murmur Neurologic/Psychiatric: Alert, Oriented x3 Results/Procedures Lab Laboratory Tests 08/18/21 05:38 Patient resulted labs reviewed. Assessment/Plan Assessment and Plan Assess & Plan/Chief Complaint Sepsis due to UTI Weakness Confusion/dementia Continue Keflex per c/s from [place] PT/OT Swing Bed Evaluate and does not meet criteria Hopeful to DC on Saturday to A-fib Cardiology consulted, appreciate recs Eliquis for stroke ppx Continue home meds as BP allows HTN HLD IDDMII No acute needs, continue home meds DVt ppx: Already on Eliquis Critical Care Critically Ill Patient Diagnosis/Problems Diagnosis/Problems (1) UTI (urinary tract infection) (2) Sepsis (3) Insulin dependent diabetes mellitus Status: Chronic (4) CAD (coronary artery disease) Status: Chronic (5) Essential (primary) hypertension Status: Chronic (6) PAD (peripheral artery disease) (7) Prophylactic measure LENNIE GREEN MD Aug 18, 2021 09:14
--- NOTE | 2021-08-18 09:36 | Physical Therapy Daily Note ---
PT Daily Note-Current Subjective Patient is very agitated requiring a live sitter. Mental Status Patient Orientation: Confused Transfers SCALE: Activities may be completed with or without assistive devices. 9-Sabevitppe-usxibur completes the activity by him/herself with no assistance from a helper. 5-Set-up or Clean-up Assistance-helper sets up or cleans up; patient completes activity. [employer] assists only prior to or following the activity. 4-Supervision or Touching Assistance-helper provides verbal cues and/or touching/steadying and/or contact guard assistance as patient completes activity. Assistance may be provided throughout the activity or intermittently. 3-Partial/Moderate Assistance-helper does LESS THAN HALF the effort. [employer] lifts, holds or supports trunk or limbs, but provides less than half the effort. 2-Substantial/Maximal Assistance-helper does MORE THAN HALF the effort. [employer] lifts or holds trunk or limbs and provides more than half the effort. 3-Cdgruenxp-tqltvt does ALL the effort. Patient does none of the effort to complete the activity. Or, the assistance of 2 or more helpers is required for the patient to complete the activity. If activity was not attempted, code reason: 7-Patient Refused. 9-Not Applicable-not attempted and the patient did not perform the activity before the current illness, exacerbation or injury. 10-Not Attempted due to Environmental Limitations-(lack of equipment, weather restraints, etc.). 88-Not Attempted due to Medical Conditions or Safety Concerns. Lying to Sitting/Side of Bed(Q: 4 Sit to Stand (QC): 3 Chair/Akd-fn-Roxxk Xfer(QC): 3 Gait Training Distance: 50' Walk 10 feet (QC): 1 Walk 50 ft with 2 Turns(QC): 1 Gait Assistive Device: FWW assist of 2 for safety due to patient demonstrating shuffle gait sequence with extended UE's with FWW use. 1 person to assist with patient and 1 for FWW Assessment Patient up in recliner with needs met. Improvement with distance, however, continues to require assistance for safe mobility. PT Fci Goals Fci Goals PT Fci Goals Time Frame: September 02, 2021 Roll Left & Right (QC): 4 Sit to Lying (QC): 4 Lying-Sitting on Side/Bed(QC): 4 Sit to Stand (QC): 4 Chair/Kql-lh-Axdgq Xfer(QC): 4 Toilet Transfer (QC): 4 Walk 10 feet (QC): 4 Walk 50ft with 2 Turns (QC): 4 PT Plan Treatment/Plan Treatment Plan: Continue Plan of Care Treatment Plan: Bed Mobility, Education, Functional Activity Romy, Functional Strength, Gait, Safety, Therapeutic Exercise, Transfers Treatment Duration: September 02, 2021 Frequency: 6 times per week Estimated Hrs Per Day: .25 hour per day Time/GCodes Time In: 825 Time Out: 838 Total Billed Treatment Time: 13 Total Billed Treatment 1 visit GT 13 min OSCAR SR PT Aug 18, 2021 09:36
[2021-08-18 12:12] VITALS: BP 103/55
--- NOTE | 2021-08-18 13:00 | Occupational Ther Daily Note ---
OT Current Status-Daily Note Subjective Pt dozing in chair, woke easily to name. Pt reluctantly agrees to therapy after encouragement from live sitter and [place]. Mental Status/Objective Patient Orientation: Person, Confused, Place Attachments: IV ADL-Treatment Therapy Code Descriptions/Definitions Functional [place]estal Measure: 0=Not Assessed/NA 4=Minimal Assistance 1=Total Assistance 5=Supervision or Setup 2=Maximal Assistance 6=Modified Vestal 3=Moderate Assistance 7=Complete IndependenceSCALE: Activities may be completed with or without assistive devices. 9-Mgfkiyrazt-aiwkvdc completes the activity by him/herself with no assistance from a helper. 5-Set-up or Clean-up Assistance-helper sets up or cleans up; patient completes activity. [place] assists only prior to or following the activity. 4-Supervision or Touching Assistance-helper provides verbal cues and/or touching/steadying and/or contact guard assistance as patient completes activity. Assistance may be provided throughout the activity or intermittently. 3-Partial/Moderate Assistance-helper does LESS THAN HALF the effort. [place] lifts, holds or supports trunk or limbs, but provides less than half the effort. 2-Substantial/Maximal Assistance-helper does MORE THAN HALF the effort. [place] lifts or holds trunk or limbs and provides more than half the effort. 0-Qfcdyktxz-entvil does ALL the effort. Patient does none of the effort to complete the activity. Or, the assistance of 2 or more helpers is required for the patient to complete the activity. If activity was not attempted, code reason: 7-Patient Refused. 9-Not Applicable-not attempted and the patient did not perform the activity before the current illness, exacerbation or injury. 10-Not Attempted due to Environmental Limitations-(lack of equipment, weather restraints, etc.). 88-Not Attempted due to Medical Conditions or Safety Concerns. With discussion, pt remarked that he is assisted with bathing and dressing at his assisted living apartment. Other Treatment Pt declines ADLs. With encouragement, pt participates in B UE exercises. Skilled instruction for correct technique. 4 exercises 1 set 15 reps against gravity completed though pt fatigued at end of each set and unable to maintain correct technique. After session, pt sitting in recliner with call light/phone in reach. All needs met in room. OT Creping Machine Operator Helper Goals Creping Machine Operator Helper Goals Time Frame: Aug 26, 2021 Eating (QC): 5 Oral Hygiene (QC): 5 Toileting Hygiene (QC): 4 Shower/Bathe Self (QC): 4 Upper Body Dressing (QC): 4 Lower Body Dressing (QC): 4 On/Off Footwear (QC): 4 1=Demonstrate adherence to instructed precautions during ADL tasks. 2=Patient will verbalize/demonstrate understanding of assistive devices/modifications for ADL. 3=Patient will improve strength/tolerance for activity to enable patient to perform ADL's. OT Education/Plan Problem List/Assessment Assessment: Decreased Activ Tolerance, Decreased Safety Aware, Decreased UE Str ength, Impaired Self-Care Skills Discharge Recommendations Plan/Recommendations: Continue POC Treatment Plan/Plan of Care Patient would benefit from OT for education, treatment and training to promote independence in ADL's, mobility, safety and/or upper extremity function for ADL's. Plan of Care: ADL Retraining, Cognitive Retraining, Functional Mobility, UE Funct Exercise/Act Treatment Duration: Aug 26, 2021 Frequency: 3 times per week (3-5 times per week) Estimated Hrs Per Day: .25 hour per day Rehab Potential: Guarded Time/GCodes Start Time: 12:35 Stop Time: 13:46 Total Time Billed (hr/min): 11 Billed Treatment Time 1 visit-EX 1 (11 min) MANDA HURTADO Aug 18, 2021 13:00
[2021-08-18 15:11] VITALS: BP 101/57
[2021-08-18 20:03] VITALS: BP 121/74
[2021-08-19] VITALS (7 sets, daily range): BP systolic 101–149; BP diastolic 50–84
[2021-08-19 05:16] LABS: BASOPHILS % (AUTO) 0 % (0-10); EOSINOPHILS # (AUTO) 0.5 10^3/uL (0.0-0.3); EOSINOPHILS % (AUTO) 6 % (0-10); HEMATOCRIT 34 % (40-54); HEMOGLOBIN 11.2 g/dL (13.3-17.7); LYMPHOCYTES # (AUTO) 2.4 10^3/uL (1.0-4.0); LYMPHOCYTES % (AUTO) 29 % (12-44); MEAN CORPUSCULAR HEMOGLOBIN 30 pg (25-34); MEAN CORPUSCULAR HGB CONC 33 g/dL (32-36); MEAN CORPUSCULAR VOLUME 90 fL (80-99); MEAN PLATELET VOLUME 9.8 fL (9.0-12.2); MONOCYTES # (AUTO) 0.8 10^3/uL (0.0-1.0); MONOCYTES % (AUTO) 9 % (0-12); NEUTROPHILS # (AUTO) 4.2 10^3/uL (1.8-7.8); NEUTROPHILS % (AUTO) 51 % (42-75); PLATELET COUNT 197 10^3/uL (130-400); WHITE BLOOD COUNT 8.3 10^3/uL (4.3-11.0)
[2021-08-19 05:29] LABS: POTASSIUM 5.1 MMOL/L (3.6-5.0)
[2021-08-19 05:30] LABS: CALCIUM 9.3 MG/DL (8.5-10.1)
[2021-08-19] MEDS: inSUlin ASPART (NovoLOG) 1 UNIT/0.01 ML (CHARGE PER UNIT) SC SCH ×4 (05:33→20:39)
[2021-08-19] MEDS: POTASSIUM CL 10MEQ/50ML IVPB 50 ML IV SCH (05:33)
[2021-08-19] MEDS: KCL 20 MEQ TAB (K-DUR) PO SCH (05:33)
[2021-08-19 05:34] LABS: CREATININE SERUM 0.86 MG/DL (0.60-1.30)
[2021-08-19] MEDS: MAGNESIUM 1 GM/100 ML IVPB 100 ML IV SCH (05:34)
[2021-08-19] MEDS: ASPIRIN 81 MG CHEW (CHILDREN'S ASA) PO SCH (08:26)
[2021-08-19] MEDS: lisINopril 5 MG (PRINIVIL) TABLET PO SCH (08:26)
[2021-08-19] MEDS: APIXABAN 2.5 MG (ELIQUIS) TABLET PO SCH ×2 (08:26→20:51)
[2021-08-19] MEDS: CEPHALEXIN 250 MG (KEFLEX) CAP PO SCH ×2 (08:29→20:52)
--- NOTE | 2021-08-19 08:30 | Physical Therapy Daily Note ---
PT Daily Note-Current Subjective Patient in bed. Confused. Mental Status Patient Orientation: Confused Transfers SCALE: Activities may be completed with or without assistive devices. 0-Bhqtczbhtp-uqtrjes completes the activity by him/herself with no assistance from a helper. 5-Set-up or Clean-up Assistance-helper sets up or cleans up; patient completes activity. [place] assists only prior to or following the activity. 4-Supervision or Touching Assistance-helper provides verbal cues and/or touching/steadying and/or contact guard assistance as patient completes activity. Assistance may be provided throughout the activity or intermittently. 3-Partial/Moderate Assistance-helper does LESS THAN HALF the effort. [place] lifts, holds or supports trunk or limbs, but provides less than half the effort. 2-Substantial/Maximal Assistance-helper does MORE THAN HALF the effort. [place] lifts or holds trunk or limbs and provides more than half the effort. 0-Mdmikucjf-uttsio does ALL the effort. Patient does none of the effort to complete the activity. Or, the assistance of 2 or more helpers is required for the patient to complete the activity. If activity was not attempted, code reason: 7-Patient Refused. 9-Not Applicable-not attempted and the patient did not perform the activity before the current illness, exacerbation or injury. 10-Not Attempted due to Environmental Limitations-(lack of equipment, weather restraints, etc.). 88-Not Attempted due to Medical Conditions or Safety Concerns. Lying to Sitting/Side of Bed(Q: 3 Sit to Stand (QC): 3 Chair/Ioj-za-Bndyw Xfer(QC): 3 Toilet Transfer (QC): 3 mod assist for all mobility/slightly displays extended UE's with FWW use in stand for forward lean with PT correct Gait Training Distance: 15' x 2 Walk 10 feet (QC): 3 (mod assist) Gait Assistive Device: FWW extended UE's with FWW use with PT correct due to patient leaning forward and unable to correct. Assessment PT assist to cleanse after BM. Patient refused to ambulate farther distance on this date and demanded to sit in recliner. PT to increase activity as patient tolerates and allows. PT Lie Detector Operator Goals Retirement Goals PT Retirement Goals Time Frame: September 02, 2021 Roll Left & Right (QC): 4 Sit to Lying (QC): 4 Lying-Sitting on Side/Bed(QC): 4 Sit to Stand (QC): 4 Chair/Zon-ch-Fxbfa Xfer(QC): 4 Toilet Transfer (QC): 4 Walk 10 feet (QC): 4 Walk 50ft with 2 Turns (QC): 4 PT Plan Treatment/Plan Treatment Plan: Continue Plan of Care Treatment Plan: Bed Mobility, Education, Functional Activity Romy, Functional Strength, Gait, Safety, Therapeutic Exercise, Transfers Treatment Duration: September 02, 2021 Frequency: 6 times per week Estimated Hrs Per Day: .25 hour per day Time/GCodes Time In: 700 Time Out: 719 Total Billed Treatment Time: 19 Total Billed Treatment 1 visit FA 19 min OSCAR SR PT Aug 19, 2021 08:30
--- NOTE | 2021-08-19 11:31 | Progress Note - Hospitalist ---
Subjective HPI/CC On Admission Date Seen by Provider: Aug 19, 2021 Time Seen by Provider: 11:29 Pt is an 86yoCM with a PMH of a fib, HLD, HTN, IDDMII who presented to outside ER due to confusion. He was found to be septic from a UTI there and transferred here for admission. I spoke with his daughter briefly who states he was very c onfused yesterday but had not been by to see him today but heard he remained confused. On my exam he was not able to tell me much of what brought him here but that he felt better. He was able to tell me about his daughter who works here and about why his nickname was Maciej. 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 Subjective/Events-last exam Patient is sitting in the chair urinating when I entered the room. I offered him privacy and he declines and states he is unsure if he is even making it into the urinal. I informed him that he is urinating in the urinal. He responds "I guess my pecker still works." He otherwise has no complaints. Discussed plan to work on strength and hopes that he could discharge to his assisted living facility. Objective Exam Vital Signs Vital Signs Date Time Temp Pulse Resp B/P (MAP) Pulse Ox O2 Delivery O2 Flow Rate FiO2 08/19/21 08:00 36.7 90 18 101/53 (69) 95 08/19/21 03:48 Room Air Capillary Refill : General Appearance: No Apparent Distress, WD/WN Respiratory: Lungs Clear, No Respiratory Distress Cardiovascular: Regular Rate, Rhythm, No Murmur Genital/Rectal: Other (urinating without difficulty while I was at bedside) Neurologic/Psychiatric: Alert, Oriented x3 Results/Procedures Lab Laboratory Tests 08/19/21 05:00 Patient resulted labs reviewed. Assessment/Plan Assessment and Plan Assess & Plan/Chief Complaint Sepsis due to UTI Weakness Confusion/dementia Continue Keflex per c/s from [place] PT/OT to continue Orders for RN to ambulate pt as well Swing Bed Evaluate and does not meet criteria Hopeful to DC on Saturday to A-fib Cardiology consulted, appreciate recs Eliquis for stroke ppx Continue home meds as BP allows HTN HLD IDDMII No acute needs, continue home meds DVt ppx: Already on Eliquis Critical Care Critically Ill Patient Diagnosis/Problems Diagnosis/Problems (1) UTI (urinary tract infection) (2) Sepsis (3) Insulin dependent diabetes mellitus Status: Chronic (4) CAD (coronary artery disease) Status: Chronic (5) Essential (primary) hypertension Status: Chronic (6) PAD (peripheral artery disease) (7) Prophylactic measure LENNIE GREEN MD Aug 19, 2021 11:31
--- NOTE | 2021-08-19 15:47 | Progress Note - Cardiology ---
Cardiology SOAP Progress Note Subjective: No cp or palp or syncope or shortness of breath at rest No n/v/d Gen malaise and weakness are improving Objective: I&O/Vital Signs 08/19/21 08/19/21 08/19/21 08/19/21 03:48 07:00 08:00 08:00 Temp 36.5 36.7 Pulse 45 82 90 Resp 18 18 B/P (MAP) 117/51 (73) 101/53 (69) Pulse Ox 95 95 O2 Delivery Room Air Room Air 08/19/21 08/19/21 08/19/21 12:00 12:53 15:35 Temp 36.2 35.8 Pulse 72 77 53 Resp 18 20 B/P (MAP) 123/57 (79) 104/50 (68) Pulse Ox 98 97 O2 Delivery Room Air Room Air 08/19/21 00:00 Intake Total 2270 ml Output Total 250 ml Balance 2020 ml Weight (Pounds): 215 Weight (Ounces): 0.0 Weight (Calculated Kilograms): 97.373094 Constitutional: AAO x 3, well-developed, well-nourished Respiratory: No accessory muscle use, No respiratory distress; chest expansion is symmetric, chest is bilaterally symmetric, lungs clear to auscultation Cardiovascular: regular rate-rhythm; No JVD; S1 and S2 Gastrointestional: No tender; soft, round, audible bowel sounds Extremities: no lower extremity edema bilateral Neurologic/Psychiatric: grossly intact (moves all extremities) Skin: pallor, other (extensive bruising to arms/hands bilat. Brusing with excoriations to legs bilat. Bruising to ACW) Results/Procedures: Labs Laboratory Tests 08/18/21 19:50: Glucometer 162H 08/19/21 05:00: White Blood Count 8.3, Red Blood Count 3.76L, Hemoglobin 11.2L, Hematocrit 34L, Mean Corpuscular Volume 90, Mean Corpuscular Hemoglobin 30, Mean Corpuscular Hemoglobin Concent 33, Red Cell Distribution Width 13.6, Platelet Count 197, Mean Platelet Volume 9.8, Immature Granulocyte % (Auto) 4, Neutrophils (%) (Auto) 51, Lymphocytes (%) (Auto) 29, Monocytes (%) (Auto) 9, Eosinophils (%) (Auto) 6, Basophils (%) (Auto) 0, Neutrophils # (Auto) 4.2, Lymphocytes # (Auto) 2.4, Monocytes # (Auto) 0.8, Eosinophils # (Auto) 0.5H, Basophils # (Auto) 0.0, Immature Granulocyte # (Auto) 0.3H, Sodium Level 133L, Potassium Level 5.1H, Chloride Level 100, Carbon Dioxide Level 20L, Anion Gap 13, Blood Urea Nitrogen 21H, Creatinine 0.86, Estimat Glomerular Filtration Rate 84, BUN/Creatinine Ratio 24, Glucose Level 147H, Calcium Level 9.3, Magnesium Level 2.0 08/19/21 07:54: Glucometer 234H 08/19/21 11:15: Glucometer 191H 08/19/21 15:04: Glucometer 176H Laboratory Tests 08/18/21 05:38 08/19/21 05:00 A/P: Assessment: UTI with sepsis and confusion, improved - management per Medical services Episode of a-fib with RVR - Currently SR and on oral Cardizem - H/O PAF - documented on ILR transmissions of Apr and May 2020 - Eliquis for stroke prophylaxis. Lower dose because he is also on ASA and age is greater than 85 Near-syncope in Mar 2020 - s/p ILR implant on 04/20/20 - ILR showing brief WCT in early Nov 2020: probaly A fib, but cannot exclude NSVT. s/p TAVR at on 08/07/[address] Valente - Echo of 04/20/20: LVEF 50%, mild to mod dilatation of LA, mild to mod MR, bioprosthetic AoV with peak grad 20 mmHg and mean grad 11 mmHg, mild tomod TR, RVSP 30 mmHg - Echo of 02-01-21: LVEF 45-50%: mod conc LVH, dilated LA, bioprostheitc aoric valve with peak grad 28 and mean grad 15 mmHg Hypertension - controlled Poor balance - intermittent noncompliance with supportive devices such as cane/walker, recent falls at home CAD - H/O CECY to the LAD at at time of cardiac cath on 07/10/[address] Roman - MPI 01-31-21: mild to mod cardiomegaly with mild to mod global hypokinesis and LVEF 43%, no ischemia or infarction Carotid dz - H/o right carotid stent. - Mild carotid arterial disease without evidence of hemodynamic significance on carotid u/s of 08/22/20 PAD: - Peripheral angiogram was done on 12/03/[address] Palafox which demonstrated moderate calcified disease segment in the right common iliac artery. Very tortuous right distal common iliac artery and external iliac artery. Small AV fistula noted in the distal right SFA filling deep saphenous vein. Mild diffuse disease in the right SFA. No significant disease in the right popliteal artery. At least moderate calcification is noted in the right SFA and popliteal artery. Severe stenosis in the right TP trunk with heavy calcification. Single-vessel runoff below the knee which is an anterior tibial artery which is occluded in the distal segment. Diffusely diseased severe deep peroneal and posterior tibial artery with heavy calcification with no contribution to flow to the foot. In the left lower extremity there was no significant disease in the left common and external iliac artery. Severe ostial stenosis of the left internal iliac artery. Moderate calcified stenosis is noted in the left common femoral artery. Moderate to severe stenosis in the proximal left SFA. Moderate disease calcified in the mid, distal SFA and proximal popliteal artery. Moderate to severe calcified is disease segment in the distal left popliteal artery. 1 vessel runoff below the left knee which is very likely a posterior tibial artery with subtotal occlusion in the proximal segment. Total occlusion of the deep peroneal and anterior tibial artery. - Last HELADIO done on 05/07/[address] Palafox which showed severely abnormal bilateral HELADIO and TBI. Right HELADIO 0.46, TBI 0.25. Left HELADIO 0.45, TBI 0.35. No resting pain or nonhealing ulcers with single-vessel runoff bilaterally. 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
[2021-08-20 00:08] VITALS: BP 126/81
[2021-08-20 04:05] VITALS: BP 112/61
[2021-08-20] MEDS: inSUlin ASPART (NovoLOG) 1 UNIT/0.01 ML (CHARGE PER UNIT) SC SCH ×4 (05:10→20:50)
[2021-08-20 05:19] LABS: BASOPHILS # (AUTO) 0.1 10^3/uL (0.0-0.1); BASOPHILS % (AUTO) 1 % (0-10); EOSINOPHILS # (AUTO) 0.5 10^3/uL (0.0-0.3); EOSINOPHILS % (AUTO) 6 % (0-10); HEMATOCRIT 37 % (40-54); HEMOGLOBIN 12.2 g/dL (13.3-17.7); LYMPHOCYTES % (AUTO) 29 % (12-44); MEAN CORPUSCULAR HEMOGLOBIN 30 pg (25-34); MEAN CORPUSCULAR HGB CONC 33 g/dL (32-36); MEAN CORPUSCULAR VOLUME 90 fL (80-99); MONOCYTES # (AUTO) 0.7 10^3/uL (0.0-1.0); MONOCYTES % (AUTO) 10 % (0-12); NEUTROPHILS # (AUTO) 3.3 10^3/uL (1.8-7.8); NEUTROPHILS % (AUTO) 47 % (42-75); PLATELET COUNT 220 10^3/uL (130-400); WHITE BLOOD COUNT 7.1 10^3/uL (4.3-11.0)
[2021-08-20 05:30] LABS: CALCIUM 9.8 MG/DL (8.5-10.1)
[2021-08-20 05:35] LABS: CREATININE SERUM 0.86 MG/DL (0.60-1.30)
[2021-08-20 05:37] LABS: MAGNESIUM 2.1 MG/DL (1.6-2.4)
[2021-08-20] MEDS: POTASSIUM CL 10MEQ/50ML IVPB 50 ML IV SCH (06:10)
[2021-08-20] MEDS: MAGNESIUM 1 GM/100 ML IVPB 100 ML IV SCH (06:11)
[2021-08-20] MEDS: KCL 20 MEQ TAB (K-DUR) PO SCH (06:11)
[2021-08-20 07:39] VITALS: BP 134/72
[2021-08-20] MEDS: CEPHALEXIN 250 MG (KEFLEX) CAP PO SCH ×2 (08:16→20:49)
[2021-08-20] MEDS: ASPIRIN 81 MG CHEW (CHILDREN'S ASA) PO SCH (08:16)
[2021-08-20] MEDS: APIXABAN 2.5 MG (ELIQUIS) TABLET PO SCH ×2 (08:16→20:49)
[2021-08-20] MEDS: lisINopril 5 MG (PRINIVIL) TABLET PO SCH (08:16)
--- NOTE | 2021-08-20 09:50 | Progress Note - Hospitalist ---
Subjective HPI/CC On Admission Date Seen by Provider: Aug 20, 2021 Time Seen by Provider: 09:49 Pt is an 86yoCM with a PMH of a fib, HLD, HTN, IDDMII who presented to outside ER due to confusion. He was found to be septic from a UTI there and transferred here for admission. I spoke with his daughter briefly who states he was very c onfused yesterday but had not been by to see him today but heard he remained confused. On my exam he was not able to tell me much of what brought him here but that he felt better. He was able to tell me about his daughter who works here and about why his nickname was Maciej. 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 Subjective/Events-last exam Sleeping when I entered room and asked to be allowed to continue to sleep. No complaints. Objective Exam Vital Signs Vital Signs Date Time Temp Pulse Resp B/P (MAP) Pulse Ox O2 Delivery O2 Flow Rate FiO2 08/20/21 08:00 Room Air 08/20/21 07:39 36.4 64 18 134/72 (92) 98 Capillary Refill : General Appearance: No Apparent Distress, Chronically ill Respiratory: Lungs Clear, No Respiratory Distress Cardiovascular: Regular Rate, Rhythm Results/Procedures Lab Laboratory Tests 08/20/21 05:06 Patient resulted labs reviewed. Assessment/Plan Assessment and Plan Assess & Plan/Chief Complaint Sepsis due to UTI Weakness Confusion/dementia Continue Keflex per c/s from [place] PT/OT to continue Orders for RN to ambulate pt as well Swing Bed Evaluate and does not meet criteria Hopeful to DC on Saturday to [facility] Declined PT yesterday AM- may need SNF if no significant gains A-fib Cardiology consulted, appreciate recs Eliquis for stroke ppx Continue home meds as BP allows HTN HLD IDDMII No acute needs, continue home meds DVt ppx: Already on Eliquis Critical Care Critically Ill Patient Diagnosis/Problems Diagnosis/Problems (1) UTI (urinary tract infection) (2) Sepsis (3) Insulin dependent diabetes mellitus Status: Chronic (4) CAD (coronary artery disease) Status: Chronic (5) Essential (primary) hypertension Status: Chronic (6) PAD (peripheral artery disease) (7) Prophylactic measure LENNIE GREEN MD Aug 20, 2021 09:50
[2021-08-20 11:51] VITALS: BP 132/68
[2021-08-20 15:24] VITALS: BP 125/60
--- NOTE | 2021-08-20 17:51 | Progress Note - Cardiology ---
Cardiology SOAP Progress Note Subjective: No cp or palp or syncope No n/v/d Gen weakness and malais Objective: I&O/Vital Signs 08/20/21 08/20/21 08/20/21 08/20/21 07:39 08:00 11:51 15:24 Temp 36.4 36.5 36.3 Pulse 64 66 64 Resp 18 17 18 B/P (MAP) 134/72 (92) 132/68 (89) 125/60 (81) Pulse Ox 98 97 82 O2 Delivery Room Air Room Air Room Air Room Air 08/20/21 00:00 Intake Total 1455 ml Balance 1455 ml Weight (Pounds): 215 Weight (Ounces): 0.0 Weight (Calculated Kilograms): 97.288480 Constitutional: AAO x 3, well-developed, well-nourished Respiratory: No accessory muscle use, No respiratory distress; chest expansion is symmetric, chest is bilaterally symmetric, lungs clear to auscultation Cardiovascular: regular rate-rhythm; No JVD; S1 and S2 Gastrointestional: No tender; soft, round, audible bowel sounds Extremities: no lower extremity edema bilateral Neurologic/Psychiatric: grossly intact (moves all extremities) Skin: pallor, other (extensive bruising to arms/hands bilat. Brusing with excoriations to legs bilat. Bruising to ACW) Results/Procedures: Labs Laboratory Tests 08/19/21 20:02: Glucometer 175H 08/20/21 05:05: Glucometer 132H 08/20/21 05:06: White Blood Count 7.1, Red Blood Count 4.12L, Hemoglobin 12.2L, Hematocrit 37L, Mean Corpuscular Volume 90, Mean Corpuscular Hemoglobin 30, Mean Corpuscular Hemoglobin Concent 33, Red Cell Distribution Width 13.5, Platelet Count 220, Mean Platelet Volume 10.0, Immature Granulocyte % (Auto) 7, Neutrophils (%) (Auto) 47, Lymphocytes (%) (Auto) 29, Monocytes (%) (Auto) 10, Eosinophils (%) (Auto) 6, Basophils (%) (Auto) 1, Neutrophils # (Auto) 3.3, Lymphocytes # (Auto) 2.0, Monocytes # (Auto) 0.7, Eosinophils # (Auto) 0.5H, Basophils # (Auto) 0.1, Immature Granulocyte # (Auto) 0.5H, Sodium Level 134L, Potassium Level 5.0, Chloride Level 101, Carbon Dioxide Level 20L, Anion Gap 13, Blood Urea Nitrogen 22H, Creatinine 0.86, Estimat Glomerular Filtration Rate 84, BUN/Creatinine Ratio 26, Glucose Level 146H, Calcium Level 9.8, Magnesium Level 2.1 08/20/21 10:53: Glucometer 155H 08/20/21 15:23: Glucometer 167H A/P: Assessment: UTI with sepsis and confusion, improved - management per Medical services Episode of a-fib with RVR - Currently SR and on oral Cardizem - H/O PAF - documented on ILR transmissions of Apr and May 2020 - Eliquis for stroke prophylaxis. Lower dose because he is also on ASA and age is greater than 85 Near-syncope in Mar 2020 - s/p ILR implant on 04/20/20 - ILR showing brief WCT in early Nov 2020: probaly A fib, but cannot exclude NSVT. s/p TAVR at on 08/07/[address] Valente - Echo of 04/20/20: LVEF 50%, mild to mod dilatation of LA, mild to mod MR, bioprosthetic AoV with peak grad 20 mmHg and mean grad 11 mmHg, mild tomod TR, RVSP 30 mmHg - Echo of 02-01-21: LVEF 45-50%: mod conc LVH, dilated LA, bioprostheitc aoric valve with peak grad 28 and mean grad 15 mmHg Hypertension - controlled Poor balance - intermittent noncompliance with supportive devices such as cane/walker, recent falls at home CAD - H/O CECY to the LAD at at time of cardiac cath on 07/10/[address] Roman - MPI 01-31-21: mild to mod cardiomegaly with mild to mod global hypokinesis and LVEF 43%, no ischemia or infarction Carotid dz - H/o right carotid stent. - Mild carotid arterial disease without evidence of hemodynamic significance on carotid u/s of 08/22/20 PAD: - Peripheral angiogram was done on 12/03/[address] Palafox which demonstrated moderate calcified disease segment in the right common iliac artery. Very to rtuous right distal common iliac artery and external iliac artery. Small AV fistula noted in the distal right SFA filling deep saphenous vein. Mild diffuse disease in the right SFA. No significant disease in the right popliteal artery. At least moderate calcification is noted in the right SFA and popliteal artery. Severe stenosis in the right TP trunk with heavy calcification. Single-vessel runoff below the knee which is an anterior tibial artery which is occluded in the distal segment. Diffusely diseased severe deep peroneal and posterior tibial artery with heavy calcification with no contribution to flow to the foot. In the left lower extremity there was no significant disease in the left common and external iliac artery. Severe ostial stenosis of the left internal iliac artery. Moderate calcified stenosis is noted in the left common femoral artery. Moderate to severe stenosis in the proximal left SFA. Moderate disease calcified in the mid, distal SFA and proximal popliteal artery. Moderate to severe calci fied is disease segment in the distal left popliteal artery. 1 vessel runoff below the left knee which is very likely a posterior tibial artery with subtotal occlusion in the proximal segment. Total occlusion of the deep peroneal and anterior tibial artery. - Last HELADIO done on 05/07/[address] Palafox which showed severely abnormal bilateral HELADIO and TBI. Right HELADIO 0.46, TBI 0.25. Left HLEADIO 0.45, TBI 0.35. No resting pain or nonhealing ulcers with single-vessel runoff bilaterally. 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
[2021-08-20 19:21] VITALS: BP 110/73
[2021-08-21 00:36] VITALS: BP 133/78
[2021-08-21 04:34] VITALS: BP 123/52
[2021-08-21] MEDS: inSUlin ASPART (NovoLOG) 1 UNIT/0.01 ML (CHARGE PER UNIT) SC SCH ×2 (05:20→11:06)
[2021-08-21 05:53] LABS: BASOPHILS % (AUTO) 1 % (0-10); EOSINOPHILS # (AUTO) 0.5 10^3/uL (0.0-0.3); EOSINOPHILS % (AUTO) 7 % (0-10); HEMATOCRIT 37 % (40-54); HEMOGLOBIN 12.2 g/dL (13.3-17.7); LYMPHOCYTES # (AUTO) 2.2 10^3/uL (1.0-4.0); LYMPHOCYTES % (AUTO) 31 % (12-44); MEAN CORPUSCULAR HEMOGLOBIN 30 pg (25-34); MEAN CORPUSCULAR HGB CONC 33 g/dL (32-36); MEAN CORPUSCULAR VOLUME 90 fL (80-99); MEAN PLATELET VOLUME 10.2 fL (9.0-12.2); MONOCYTES # (AUTO) 0.7 10^3/uL (0.0-1.0); MONOCYTES % (AUTO) 10 % (0-12); NEUTROPHILS # (AUTO) 3.1 10^3/uL (1.8-7.8); NEUTROPHILS % (AUTO) 44 % (42-75); PLATELET COUNT 224 10^3/uL (130-400); WHITE BLOOD COUNT 7.1 10^3/uL (4.3-11.0)
[2021-08-21 05:58] LABS: SMEAR SCAN COMMENT YES
[2021-08-21 06:05] LABS: CALCIUM 9.7 MG/DL (8.5-10.1)
[2021-08-21 06:09] LABS: CREATININE SERUM 0.96 MG/DL (0.60-1.30)
[2021-08-21] MEDS: KCL 20 MEQ TAB (K-DUR) PO SCH (06:11)
[2021-08-21] MEDS: POTASSIUM CL 10MEQ/50ML IVPB 50 ML IV SCH (06:11)
[2021-08-21] MEDS: MAGNESIUM 1 GM/100 ML IVPB 100 ML IV SCH (06:15)
[2021-08-21 07:48] VITALS: BP 127/68
--- NOTE | 2021-08-21 09:25 | Physical Therapy Daily Note ---
PT Daily Note-Current Subjective Patient c/o of being cold. PT assist to apply jacket and turn up heat in room. Mental Status Patient Orientation: Confused Transfers SCALE: Activities may be completed with or without assistive devices. 2-Xbpslenxig-ystfjsz completes the activity by him/herself with no assistance from a helper. 5-Set-up or Clean-up Assistance-helper sets up or cleans up; patient completes activity. [place] assists only prior to or following the activity. 4-Supervision or Touching Assistance-helper provides verbal cues and/or touching/steadying and/or contact guard assistance as patient completes activity. Assistance may be provided throughout the activity or intermittently. 3-Partial/Moderate Assistance-helper does LESS THAN HALF the effort. [place] lifts, holds or supports trunk or limbs, but provides less than half the effort. 2-Substantial/Maximal Assistance-helper does MORE THAN HALF the effort. [place] lifts or holds trunk or limbs and provides more than half the effort. 4-Kjiddqosh-whpnoa does ALL the effort. Patient does none of the effort to complete the activity. Or, the assistance of 2 or more helpers is required for the patient to complete the activity. If activity was not attempted, code reason: 7-Patient Refused. 9-Not Applicable-not attempted and the patient did not perform the activity before the current illness, exacerbation or injury. 10-Not Attempted due to Environmental Limitations-(lack of equipment, weather restraints, etc.). 88-Not Attempted due to Medical Conditions or Safety Concerns. Sit to Stand (QC): 3 Gait Training Distance: 150' Walk 10 feet (QC): 3 Walk 50 ft with 2 Turns(QC): 3 Walk 150 ft (QC): 3 Gait Assistive Device: FWW continuous VC's and tactile cues for body placement in FWW with patient displaying extended UE's and forward momentum with FWW use Assessment Patient up in recliner with chair alarm activated. Patient improved with distance, however, continues to require assist for safety due to balance issues of Fair- with Gait training with PT correct. PT Retirement Goals Interviewing Clerk Goals PT Interviewing Clerk Goals Time Frame: September 02, 2021 Roll Left & Right (QC): 4 Sit to Lying (QC): 4 Lying-Sitting on Side/Bed(QC): 4 Sit to Stand (QC): 4 Chair/Koe-nb-Mbety Xfer(QC): 4 Toilet Transfer (QC): 4 Walk 10 feet (QC): 4 Walk 50ft with 2 Turns (QC): 4 PT Plan Treatment/Plan Treatment Plan: Continue Plan of Care Treatment Plan: Bed Mobility, Education, Functional Activity Romy, Functional Strength, Gait, Safety, Therapeutic Exercise, Transfers Treatment Duration: September 02, 2021 Frequency: 6 times per week Estimated Hrs Per Day: .25 hour per day Time/GCodes Time In: 847 Time Out: 900 Total Billed Treatment Time: 13 Total Billed Treatment 1 visit GT 13 min OSCAR SR PT Aug 21, 2021 09:24
--- NOTE | 2021-08-21 09:52 | Progress Note - Cardiology ---
Cardiology SOAP Progress Note Subjective: Feels cold today No cp or palp or syncope or shortness of breath Some gen malaise No n/v/d Objective: I&O/Vital Signs 08/21/21 08/21/21 08/21/21 00:36 04:34 07:48 Temp 36.2 36.3 36.4 Pulse 42 46 52 Resp 17 16 18 B/P (MAP) 133/78 (96) 123/52 (75) 127/68 (87) Pulse Ox 98 95 96 O2 Delivery Room Air Room Air Room Air 08/21/21 00:00 Intake Total 2610 ml Output Total 100 ml Balance 2510 ml Weight (Pounds): 215 Weight (Ounces): 0.0 Weight (Calculated Kilograms): 97.238118 Constitutional: AAO x 3, well-developed, well-nourished Respiratory: No accessory muscle use, No respiratory distress; chest expansion is symmetric, chest is bilaterally symmetric, lungs clear to auscultation Cardiovascular: regular rate-rhythm; No JVD; S1 and S2 Gastrointestional: No tender; soft, round, audible bowel sounds Extremities: no lower extremity edema bilateral Neurologic/Psychiatric: grossly intact (moves all extremities) Skin: pallor, other (extensive bruising to arms/hands bilat. Bruising with excoriations to legs bilat. Bruising to ACW) Results/Procedures: Labs Laboratory Tests 08/20/21 10:53: Glucometer 155H 08/20/21 15:23: Glucometer 167H 08/20/21 20:36: Glucometer 158H 08/21/21 05:16: Glucometer 149H 08/21/21 05:48: White Blood Count 7.1, Red Blood Count 4.10L, Hemoglobin 12.2L, Hematocrit 37L, Mean Corpuscular Volume 90, Mean Corpuscular Hemoglobin 30, Mean Corpuscular Hemoglobin Concent 33, Red Cell Distribution Width 13.6, Platelet Count 224, Mean Platelet Volume 10.2, Immature Granulocyte % (Auto) 8, Neutrophils (%) (Auto) 44, Lymphocytes (%) (Auto) 31, Monocytes (%) (Auto) 10, Eosinophils (%) (Auto) 7, Basophils (%) (Auto) 1, Neutrophils # (Auto) 3.1, Lymphocytes # (Auto) 2.2, Monocytes # (Auto) 0.7, Eosinophils # (Auto) 0.5H, Basophils # (Auto) 0.0, Immature Granulocyte # (Auto) 0.5H, Sodium Level 135, Potassium Level 5.0, Chloride Level 102, Carbon Dioxide Level 21, Anion Gap 12, Blood Urea Nitrogen 22H, Creatinine 0.96, Estimat Glomerular Filtration Rate 77, BUN/Creatinine Ratio 23, Glucose Level 143H, Calcium Level 9.7, Magnesium Level 2.0, Smear Scan YES Laboratory Tests 08/20/21 05:06 08/21/21 05:48 A/P: Assessment: UTI with sepsis and confusion, improved - management per Medical services Episode of a-fib with RVR - Currently SR and on oral Cardizem - H/O PAF - documented on ILR transmissions of Apr and May 2020 - Eliquis for stroke prophylaxis. Lower dose because he is also on ASA and age is greater than 85 Near-syncope in Mar 2020 - s/p ILR implant on 04/20/20 - ILR showing brief WCT in early Nov 2020: probaly A fib, but cannot exclude NSVT. s/p TAVR at on 08/07/[address] Valente - Echo of 04/20/20: LVEF 50%, mild to mod dilatation of LA, mild to mod MR, bioprosthetic AoV with peak grad 20 mmHg and mean grad 11 mmHg, mild tomod TR, RVSP 30 mmHg - Echo of 02-01-21: LVEF 45-50%: mod conc LVH, dilated LA, bioprostheitc aoric valve with peak grad 28 and mean grad 15 mmHg Hypertension - controlled Poor balance - intermittent noncompliance with supportive devices such as cane/walker, recent falls at home CAD - H/O CECY to the LAD at at time of cardiac cath on 07/10/[address] Roman - MPI 01-31-21: mild to mod cardiomegaly with mild to mod global hypokinesis and LVEF 43%, no ischemia or infarction Carotid dz - H/o right carotid stent. - Mild carotid arterial disease without evidence of hemodynamic significance on carotid u/s of 08/22/20 PAD: - Peripheral angiogram was done on 12/03/[address] Palafox which demonstrated moderate calcified disease segment in the right common iliac artery. Very tortuous right distal common iliac artery and external iliac artery. Small AV fistula noted in the distal right SFA filling deep saphenous vein. Mild diffuse disease in the right SFA. No significant disease in the right popliteal artery. At least moderate calcification is noted in the right SFA and popliteal artery. Severe stenosis in the right TP trunk with heavy calcification. Single-vessel runoff below the knee which is an anterior tibial artery which is occluded in the distal segment. Diffusely diseased severe deep peroneal and posterior tibial artery with heavy calcification with no contribution to flow to the foot. In the left lower extremity there was no significant disease in the left common and external iliac artery. Severe ostial stenosis of the left internal iliac artery. Moderate calcified stenosis is noted in the left common femoral artery. Moderate to severe stenosis in the proximal left SFA. Moderate disease calcified in the mid, distal SFA and proximal popliteal artery. Moderate to severe calcified is disease segment in the distal left popliteal artery. 1 vessel runoff below the left knee which is very likely a posterior tibial artery with subtotal occlusion in the proximal segment. Total occlusion of the deep peroneal and anterior tibial artery. - Last HELADIO done on 05/07/[address] Palafox which showed severely abnormal bilateral HELADIO and TBI. Right HELADIO 0.46, TBI 0.25. Left HELADIO 0.45, TBI 0.35. No resting pain or nonhealing ulcers with single-vessel runoff bilaterally. 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
[2021-08-21] MEDS: ASPIRIN 81 MG CHEW (CHILDREN'S ASA) PO SCH (09:59)
[2021-08-21] MEDS: APIXABAN 2.5 MG (ELIQUIS) TABLET PO SCH (09:59)
[2021-08-21] MEDS: CEPHALEXIN 250 MG (KEFLEX) CAP PO SCH (09:59)
[2021-08-21] MEDS: lisINopril 5 MG (PRINIVIL) TABLET PO SCH (10:00)
--- NOTE | 2021-08-21 10:45 | Discharge Summary ---
Discharge Summary Reconcile Patient Problems Problems Reviewed?: Yes Instructions for Patient Via [facility], Assessment/Instructions Take medications as prescribed. You are being set up with home health care for ongoing therapy needs. You are being discharged to [facility] assisted living facility. Follow up with your PCP. Return with worsening confusion, weakness, or if you feel like you are getting worse. Physician to follow Patient: Sebastián Discharge Diet for Home: ADA Diet Hospital Course Date of Admission: Aug 13, 2021 at 15:39 Admission Diagnosis: Sepsis due to UTI Family Physician/Provider: Tanvi Maxwell DO Date of Discharge: 08/21/21 Discharge Diagnosis: Sepsis due to UTI Hospital Course: Michael Romo is an 86 year old male with PMH HTN, HLD, CAD, T2DM, AFib, dementia, who presented with confusion and was admitted with sepsis due to UTI. He initially presented to an outside ER and was transferred to [facility] for admission. He was treated with IV antibiotics and then transitioned to oral Keflex once susceptibilities returned. His confusion and weakness improved. His course was complicated by low blood pressure and his blood pressure medications were adjusted. Cardiology was consulted and assisted with his care. He was also debilitated and will be set up with home health care for ongoing therapy. He completed his course of antibiotics while in the hospital. He should follow up with his PCP, Dr. Lowery, in a week or two. He was discharged to [facility] assisted living facility in stable condition. Labs and Pending Lab Test: Laboratory Tests 08/20/21 10:53: Glucometer 155H 08/20/21 15:23: Glucometer 167H 08/20/21 20:36: Glucometer 158H 08/21/21 05:16: Glucometer 149H 08/21/21 05:48: White Blood Count 7.1, Red Blood Count 4.10L, Hemoglobin 12.2L, Hematocrit 37L, Mean Corpuscular Volume 90, Mean Corpuscular Hemoglobin 30, Mean Corpuscular Hemoglobin Concent 33, Red Cell Distribution Width 13.6, Platelet Count 224, Mean Platelet Volume 10.2, Immature Granulocyte % (Auto) 8, Neutrophils (%) (Auto) 44, Lymphocytes (%) (Auto) 31, Monocytes (%) (Auto) 10, Eosinophils (%) (Auto) 7, Basophils (%) (Auto) 1, Neutrophils # (Auto) 3.1, Lymphocytes # (Auto) 2.2, Monocytes # (Auto) 0.7, Eosinophils # (Auto) 0.5H, Basophils # (Auto) 0.0, Immature Granulocyte # (Auto) 0.5H, Sodium Level 135, Potassium Level 5.0, Chloride Level 102, Carbon Dioxide Level 21, Anion Gap 12, Blood Urea Nitrogen 22H, Creatinine 0.96, Estimat Glomerular Filtration Rate 77, BUN/Creatinine Ratio 23, Glucose Level 143H, Calcium Level 9.7, Magnesium Level 2.0, Smear Scan YES 08/21/21 10:10: Glucometer 159H Home Meds Active Ramipril 5 Mg Capsule 5 Mg PO DAILY Carvedilol 3.125 Mg Tablet 3.125 Mg PO BID Reported Imodium A-D (Loperamide HCl) 2 Mg Tablet 2-4 Mg PO UD TAKES 2 (2MG) TAB FOR THE FIRST INITIAL DOSE AND 1 TAB FOR EACH UNFORMED STOOL Calcium (Calcium Carbonate) 500 Mg Tablet 500 Mg PO DAILY Aspirin 81 Mg Tab.chew 81 Mg PO DAILY Tylenol Extra Strength (Acetaminophen) 500 Mg Tablet 1,000 Mg PO Q6H PRN TAKES 2 (500MG) TAB Dilt-Xr (Diltiazem HCl) 180 Mg Cap.er.deg 180 Mg PO DAILY Carvedilol 6.25 Mg Tablet 6.25 Mg PO BID Ramipril 5 Mg Capsule 5 Mg PO BID Certavite Sr-Antioxidant Tab (Multivit-Min/FA/Lycopene/Lut) 1 Each Tablet 1 Each PO DAILY Eliquis (Apixaban) 2.5 Mg Tablet 2.5 Mg PO BID Spironolactone 25 Mg Tablet 25 Mg PO DAILY Lantus Solostar (Insulin Glargine,Hum.rec.anlog) 100 Unit/1 Ml Insuln.pen 20 Units SC 1700 Humalog Kwikpen (Insulin Lispro) 100 Unit/1 Ml Insuln.pen 10 Units SC TIDAC Atorvastatin Calcium 20 Mg Tablet 20 Mg PO HS Cilostazol 100 Mg Tablet 100 Mg PO BID Fish Oil 1,000 mg Capsule ([place] 3 Polyunsat Fatty Acids) 1,000 Mg Cap 1,000 Mg PO DAILY Consulations Cardiology Patient Allergies: Coded Allergies: No Known Drug Allergies (Unverified , 2/8/18) Height (Feet): 5 Height (Inches): 10.00 Weight (Pounds): 215 Weight (Ounces): 0.0 Home Health Need/Face to Face Date of Face to Face: Aug 21, 2021 Clinical Findings: Instability, Muscle weakness, Unsteady gait I have seen Pt [id number]: Yes Discharged To: Home Diagnosis/Conditions: HTN AFib CAD T2DM Dementia Debility Problems/Diagnosis/Condition: (1) HTN (hypertension) (2) Afib (3) CAD (coronary artery disease) (4) Insulin dependent diabetes mellitus (5) Debility (6) Dementia Patient is Homebound due to: CognItive deficits, Evan fall risk due to ins tabilty, Muscle weakness Homebound Status Due to the above stated illness, injury or surgical procedure (medical condition or diagnosis) and associated clinical findings, the patient is homebound because of his/her inability to leave home except with aid of a supportive device and/or person AND leaving the home requires a considerable and taxing effort or is medically contraindicated. Pt req the following assistanc: Aid of another person, [facility] Nursing Orders Home Health Services Order: Nursing Services, Detention Worker-Evaluate & Treat, Physical Therapy-Evaluate & Treat Therapy Orders Therapy Orders: OT (must have SN or PT order), Physical Therapy Therapy Specific Orders: Eval assistive deivces, Teach enviro modifications/sa fety, Gait training, Increase strength/endurance Certify Stmt I certify that this patient is under my care and that I, a nurse practitioner or a physician; a claims assistant working with me, had a face to face encounter that - meets the physician face to face encounter requirements with this patient as dated. Discharge Physical Exam General: Alert, Cooperative, No Acute Distress HEENT: Atraumatic, EOMI, Mucous Memb Moist/[place] Lungs: Clear to Auscultation, Normal Air Movement Heart: Regular Rate, Normal S1, Normal S2, No Murmurs Abdomen: Normal Bowel Sounds, Soft, No Tenderness Extremities: No Edema, No Tenderness/Swelling Skin: No Rashes, No Significant Lesion Neuro: Normal Speech, Other (motor weakness) Psych/Mental Status: Mental Status NL, Mood NL ADELITA MARTINS MD Aug 21, 2021 10:39
[2021-08-21] MEDS ORDERED: RAMI5CAP65 PO (10:48)
[2021-08-21] MEDS ORDERED: CARV3.122 PO (10:48)
[2021-08-21 11:40] VITALS: BP 131/68
[2021-08-21 15:35] VITALS: BP 131/68
--- NOTE | 2021-08-22 10:33 | Physician Query Clarification ---
Physician Query-General Query to Physician: The medical record reflects the following clinical evidence: Clinical Indicators: "daughter...states he was very confused yesterday but had not been by to see him today but heard he remained confused" Per Dr. Yung "confusion likely secondary to sepsis" "Confusion and weakness improved", after treatment, GCS 14 on admission. Na slightly decreased at 132, Mental status was a change from baseline Risk Factor(s): UTI, Sepsis, Na level, Dementia Treatment: ER: IV, ceftriaxone, Normal saline 1 L, frequent neuro assessments 1. Metabolic encephalopathy, present on admission resolving 2. Other explanation of clinical findings 3. Unable to determine (no explanation for clinical findings) Please clarify and document your clinical opinion in the progress notes and discharge summary including the definitive and/or presumptive diagnosis, (suspected or probable), related to the above clinical findings. Please include clinical findings supporting your diagnosis. Carlene Henry MSN, RN Clinical Roll Cleaner [phone] [email or web address] PHYSICIAN RESPONSE: Based on the clinical findings in the record, please respond to the query above on this document as an addendum. Physician Response: Physician Response 1 If you have questions please contact: Well Treatment Offsider: Ext: Thank you for your time and cooperation. Clinical Roll Cleaner/Well Treatment Offsider This is a permanent part of the medical record CARLENE HENRY Aug 22, 2021 10:33 ADELITA MARTINS MD Aug 23, 2021 09:25 LENNIE GREEN MD Aug 23, 2021 12:13
== END 2021-08-21 15:35 | disposition home health service (06) | DRG 871 ==
LOC: 4TH 15:39 → ICU 08-14 18:23 → 4TH 08-15 18:28
PROVIDERS: ADMIT Internal Medicine; ATTEND Internal Medicine
DX: A41.9 Sepsis, unspecified organism (principal); G93.41 Metabolic encephalopathy; N39.0 Urinary tract infection, site not specified; F03.90 Unspecified dementia, unspecified severity, without behavioral disturbance, psychotic disturbance, mood disturbance, and anxiety; I48.91 Unspecified atrial fibrillation; E78.5 Hyperlipidemia, unspecified; E78.00 Pure hypercholesterolemia, unspecified; I10 Essential (primary) hypertension; E11.40 Type 2 diabetes mellitus with diabetic neuropathy, unspecified; I25.119 Atherosclerotic heart disease of native coronary artery with unspecified angina pectoris; I87.2 Venous insufficiency (chronic) (peripheral); E11.51 Type 2 diabetes mellitus with diabetic peripheral angiopathy without gangrene; I70.203 Unspecified atherosclerosis of native arteries of extremities, bilateral legs; I70.8 Atherosclerosis of other arteries; I08.1 Rheumatic disorders of both mitral and tricuspid valves; M10.9 Gout, unspecified; H91.90 Unspecified hearing loss, unspecified ear; I25.2 Old myocardial infarction; Z79.01 Long term (current) use of anticoagulants; Z79.4 Long term (current) use of insulin; Z85.820 Personal history of malignant melanoma of skin; Z95.2 Presence of prosthetic heart valve; Z79.82 Long term (current) use of aspirin; Z82.49 Family history of ischemic heart disease and other diseases of the circulatory system
CPT/HCPCS: 36415; 80048; 82947; 83605; 83735; 85025; 93005

== ENCOUNTER 2022-02-13 08:53 | Outpatient (RCR) | payer MEDICARE, BC ==
[~2022-02-13 08:53] MED LIST changes: +ACET-2267 PO; +ALBU8.5H6 INH; +APIX2.5T PO; +CALC-823 PO; +DILT180C48 PO; +LOPE-134 PO; +MULT-26 PO; -RT-ALBUINH INH
== END 2022-02-26 | disposition home or self-care (01) ==
LOC: ONC 08:53
PROVIDERS: ATTEND Radiology Radiation Oncology
DX: Z51.0 Encounter for antineoplastic radiation therapy (principal); C44.219 Basal cell carcinoma of skin of left ear and external auricular canal; E11.9 Type 2 diabetes mellitus without complications; I11.0 Hypertensive heart disease with heart failure; I50.22 Chronic systolic (congestive) heart failure; E78.00 Pure hypercholesterolemia, unspecified; R41.3 Other amnesia; Z87.891 Personal history of nicotine dependence; Z79.899 Other long term (current) drug therapy; Z79.4 Long term (current) use of insulin
CPT/HCPCS: 77290; 77295; 77300; 77334; 99205

== ENCOUNTER → 2022-03-28 | Outpatient (RCR) | payer MEDICARE, BC ==
[~2022-03-28] MED LIST changes: -CILO100T PO; +CLOP-31 PO; -CLOP75TA69 PO; +NF-PLET100 PO
== END | disposition home or self-care (01) ==
LOC: ONC 02-27 10:58
PROVIDERS: ATTEND Radiology Radiation Oncology
DX: Z51.0 Encounter for antineoplastic radiation therapy (principal); I73.9 Peripheral vascular disease, unspecified; R26.89 Other abnormalities of gait and mobility; I25.10 Atherosclerotic heart disease of native coronary artery without angina pectoris; E78.5 Hyperlipidemia, unspecified; M79.89 Other specified soft tissue disorders; I65.23 Occlusion and stenosis of bilateral carotid arteries; Z79.01 Long term (current) use of anticoagulants; I48.91 Unspecified atrial fibrillation; I11.0 Hypertensive heart disease with heart failure; I50.22 Chronic systolic (congestive) heart failure
CPT/HCPCS: 77280; 77334; 77336

== ENCOUNTER 2022-04-25 08:29 | Outpatient (RCR) | payer MEDICARE, BC | END 2022-04-28 | disposition home or self-care (01) | LOC: ONC 08:29 | PROVIDERS: ATTEND Radiology Radiation Oncology | DX: Z51.0 Encounter for antineoplastic radiation therapy (principal); C44.219 Basal cell carcinoma of skin of left ear and external auricular canal; I10 Essential (primary) hypertension; E78.00 Pure hypercholesterolemia, unspecified; Z79.01 Long term (current) use of anticoagulants | CPT/HCPCS: 77336 ==

== ENCOUNTER 2022-05-21 08:29 | Emergency (ER) | payer MEDICARE, BC ==
[~2022-05-21] VITALS: Ht 177.8 cm; Wt 98.0 kg
--- NOTE | 2022-05-21 08:42 | ED General ---
General Chief Complaint: Altered Mental Status Stated Complaint: ALTERED MENTAL STATUS Nursing Triage Note: PT BR[facility]GHT [facility] BY [facility] WITH COMPLAINT OF UNRESPONSIVE. FOR NH STAFF, PT WAS FOUND TO BE UNRESPONSIVE. FOR EMS, PT WAS ALERT AND ORIENTED. PER NH, PT WAS DIAGNOSED WITH UTI, BUT WAS NEVER PUT ON ANITBIOTICS. Source of Information: Patient, EMS, Family Exam Limitations: No Limitations History of Present Illness Date Seen by Provider: May 21, 2022 Time Seen by Provider: 08:25 Initial Comments 87-year-old male with history of vascular dementia presents to the emergency department today from an assisted living facility. EMS was called stating that the patient was unresponsive. On fire arrival patient was alert, oriented. His daughter arrived who gives most of the history. He has a history of vascular dementia as well as myriad of cardiac complaints, diabetes. For the last couple of days he has been slightly confused. The daughter was told by the nursing facility that he was found to have a urinary tract infection but they have been trying to get hold of the doctor's office for couple weeks and had to speak with him. He is not on any antibiotics. She states she last had an interaction with him on Saturday and he was normal for him at that time. He does live in an assisted living facility and usually performs most of his ADLs fairly independently though he does have to have a assistance to and from the restroom. On arrival patient has no specific complaints though he is confused. Allergies and Home Medications Allergies Coded Allergies: No Known Drug Allergies (Unverified , 06/06/17) Patient Home Medication List Home Medication List Reviewed: Yes Acetaminophen (Tylenol Extra Strength) 500 Mg Tablet, 1,000 MG PO Q6H PRN for PAIN-MILD (1-4), (Reported) Entered as Reported by: JUANI RENE on 08/14/21 1117 Apixaban (Eliquis) 2.5 Mg Tablet, 2.5 MG PO BID, (Reported) Entered as Reported by: JUANI RENE on 08/14/21 1053 Aspirin (Aspirin) 81 Mg Tab.chew, 81 MG PO DAILY, (Reported) Entered as Reported by: JUANI RENE on 08/14/21 1118 Atorvastatin Calcium (Atorvastatin Calcium) 20 Mg Tablet, 20 MG PO HS, (Reported) Entered as Reported by: AGUILA MELLO on 06/06/17 1008 Calcium Carbonate (Calcium) 500 Mg Tablet, 500 MG PO DAILY, (Reported) Entered as Reported by: JUANI RENE on 08/14/21 1118 Carvedilol (Carvedilol) 3.125 Mg Tablet, 3.125 MG PO BID Prescribed by: ADELITA MARTINS on 08/21/21 1048 Cilostazol (Cilostazol) 100 Mg Tablet, 100 MG PO BID, (Reported) Entered as Reported by: AGUILA MELLO on 06/06/17 1008 Diltiazem HCl (Dilt-Xr) 180 Mg Cap.er.deg, 180 MG PO DAILY, (Reported) Entered as Reported by: JUANI RENE on 08/14/21 1059 Insulin Glargine,Hum.rec.anlog (Lantus Solostar) 100 Unit/1 Ml Insuln.pen, 20 UNITS SC 1700, (Reported) Entered as Reported by: AGUILA MELLO on 06/06/17 1038 Loperamide HCl (Imodium A-D) 2 Mg Tablet, 2-4 MG PO UD, (Reported) Entered as Reported by: JUANI RENE on 08/14/21 1119 Multivit-Min/FA/Lycopene/Lut (Certavite Sr-Antioxidant Tab) 1 Each Tablet, 1 EACH PO DAILY, (Reported) Entered as Reported by: JUANI RENE on 08/14/21 1053 [place] 3 Polyunsat Fatty Acids (Fish Oil 1,000 mg Capsule) 1,000 Mg Cap, 1,000 MG PO DAILY, (Reported) Entered as Reported by: AGUILA MELLO on 06/06/17 1008 Ramipril (Ramipril) 5 Mg Capsule, 5 MG PO DAILY Prescribed by: ADELITA MARTINS on 08/21/21 1048 Spironolactone (Spironolactone) 25 Mg Tablet, 25 MG PO DAILY, (Reported) Entered as Reported by: NOEL ZARAGOZA on 12/03/17 0738 Review of Systems Review of Systems Constitutional: no symptoms reported EENTM: no symptoms reported Respiratory: no symptoms reported Cardiovascular: no symptoms reported Gastrointestinal: no symptoms reported Genitourinary: no symptoms reported Musculoskeletal: no symptoms reported Skin: no symptoms reported Psychiatric/Neurological: No Symptoms Reported Hematologic/Lymphatic: No Symptoms Reported Immunological/Allergic: no symptoms reported Past [id number] Hx Patient Social History Tobacco Use?: No Use of E-Cig and/or Vaping dev: No Substance use?: No Alcohol Use?: No Pt feels they are or have been: No Immunizations Up To Date PED Vaccines UTD: Yes Seasonal Allergies Seasonal Allergies: No Past Medical History Surgery/Hospitalization HX: Bilateral Rotator Cuff Repair Right Knee Replacement Right Femoral Fracture plated Broken bilateral legs 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 Heart Cath Surgeries: Yes (rotator cuff bilat, knee replacement, broken legs bilat, melanomo in ear re) Cardiac, Valve Replacement Respiratory: No Currently Using CPAP: No Currently Using BIPAP: No Cardiac: Yes (Heart failure with ischemic cardiomyopathy) Angina, Chronic Edema/Swelling, Coronary Artery Disease, Heart Attack, High Cholesterol, Hypertension, Peripheral Vascular, Valvular Heart Disease Neurological: Yes Dementia, Neuropathy Reproductive Disorders: No Sexually Transmitted Disease: No HIV/AIDS: No Genitourinary: No Gastrointestinal: No Musculoskeletal: Yes Gout Endocrine: Yes Diabetes, Insulin dep HEENT: Yes Cataract Loss of Vision: Denies Hearing Impairment: Hard of Hearing Cancer: Yes Skin, Melanoma Did You Recieve Any Treatments: No Psychosocial: No Sleep Difficulties Integumentary: Yes (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 ) Blood Disorders: No Adverse Reaction/Blood Tranf: No Family Medical History Reviewed Nursing Family Hx Cancer 09 SISTER, Onset:60 years & older (OVARIAN CANCER) 09 SISTER, Onset:40's - 50 (BREAST CANCER) Chest pain 03 FATHER, Onset:50's - 60 ([place]) Dementia 03 MOTHER, Onset:60 years & older Family history: Alzheimer's disease 03 MOTHER, Onset:60 years & older Family history: Arthritis 03 FATHER, Onset:40's - 50 Family history: Breast disease 09 SISTER, Onset:40's - 50 ( OF BREAST CANCER) Family history: Cardiovascular disease 03 FATHER, Onset:40's - 50 Family history: Hypertension 03 FATHER, Onset:40's - 50 Heart disease 03 FATHER, Onset:40's - 50 Hypercholesterolemia 03 FATHER, Onset:40's - 50 Myocardial infarction 03 FATHER, Onset:40's - 50 Visual impairment 09 SISTER, Onset:40's - 50 No Family History of: Abdominal aortic aneurysm Cowlitz's disease Alcoholism Aphasia Cancer of colon Cataract Congenital heart disease Congestive heart failure Cystic fibrosis Dysphagia Family history: Allergy Family history: Asthma Family history: Coronary thrombosis Family history: Diabetes mellitus Family history: Gastrointestinal disease Family history: Glaucoma Family history: Osteoporosis Family history: Thyroid disorder Headache Hearing loss Hereditary disease History of - anemia History of - disorder History of - respiratory disease History of drug abuse Human immunodeficiency virus (HIV) seropositivity Infertile Kidney disease Malignant neoplasm of lung Parkinson's disease Prostate cancer Psychotic disorder Seizure disorder Stroke Tuberculosis Heart Disease, Cancer, CAD Under 55 Years Old Physical Exam Vital Signs Vital Signs - First Documented 05/21/22 08:30 Pulse 87 Resp 16 B/P (MAP) 137/103 (114) Pulse Ox 94 O2 Delivery Room Air Capillary Refill : Less Than 3 Seconds Height, Weight, BMI Height: 5'10.00" Weight: 215lbs. 0.0oz. 97.700296tc; 31.00 BMI Method:Stated General Appearance: No Apparent Distress Eyes: Bilateral Eye Normal Inspection, Bilateral Eye PERRL, Bilateral Eye EOMI HEENT: PERRL/EOMI, TMs Normal, Normal ENT Inspection, Pharynx Normal Neck: Normal Inspection, Supple Respiratory: Chest Non Tender, Lungs Clear, Normal Breath Sounds, No Accessory Muscle Use, No Respiratory Distress Cardiovascular: Regular Rate, Rhythm, Normal Peripheral Pulses, Systolic Murmur Gastrointestinal: Normal Bowel Sounds, No Organomegaly, Soft, Tenderness (Tenderness in the suprapubic region with voluntary guarding. No rebound tenderness. No mass organomegaly. No skin changes.) Back: Normal Inspection, No Vertebral Tenderness Extremity: Normal Capillary Refill, Normal Inspection, Non Tender, No Calf Tenderness Neurologic/Psychiatric: Alert, No Motor/Sensory Deficits Skin: Normal Color, Warm/Dry Progress/Results/Core Measures Suspected Sepsis SIRS Temperature: Pulse: 87 Respiratory Rate: 16 Laboratory Tests 05/21/22 08:38: White Blood Count 6.4 Blood Pressure 137 /103 Mean: 114 Laboratory Tests 05/21/22 08:38: Creatinine 0.99, INR Comment 1.1, Platelet Count 150, Total Bilirubin 0.6 Results/Orders Lab Results Laboratory Tests Test 05/21/22 08:38 05/21/22 08:46 Range/Units White Blood Count 6.4 4.3-11.0 10^3/uL Red Blood Count 4.20 L 4.30-5.52 10^6/uL Hemoglobin 12.4 L 13.3-17.7 g/dL Hematocrit 37 L 40-54 % Mean Corpuscular Volume 89 80-99 fL Mean Corpuscular Hemoglobin 30 25-34 pg Mean Corpuscular Hemoglobin Concent 33 32-36 g/dL Red Cell Distribution Width 13.5 10.0-14.5 % Platelet Count 150 130-400 10^3/uL Mean Platelet Volume 9.6 9.0-12.2 fL Immature Granulocyte % (Auto) 1 % Neutrophils (%) (Auto) 49 42-75 % Lymphocytes (%) (Auto) 29 12-44 % Monocytes (%) (Auto) 12 0-12 % Eosinophils (%) (Auto) 9 0-10 % Basophils (%) (Auto) 0 0-10 % Neutrophils # (Auto) 3.1 1.8-7.8 10^3/uL Lymphocytes # (Auto) 1.9 1.0-4.0 10^3/uL Monocytes # (Auto) 0.8 0.0-1.0 10^3/uL Eosinophils # (Auto) 0.6 H 0.0-0.3 10^3/uL Basophils # (Auto) 0.0 0.0-0.1 10^3/uL Immature Granulocyte # (Auto) 0.0 0.0-0.1 10^3/uL Prothrombin Time 14.6 12.2-14.7 SEC INR Comment 1.1 0.8-1.4 Activated Partial Thromboplast Time 34 24-35 SEC Sodium Level 136 135-145 MMOL/L Potassium Level 4.3 3.6-5.0 MMOL/L Chloride Level 104 98-107 MMOL/L Carbon Dioxide Level 24 21-32 MMOL/L Anion Gap 8 5-14 MMOL/L Blood Urea Nitrogen 17 7-18 MG/DL Creatinine 0.99 0.60-1.30 MG/DL Estimat Glomerular Filtration Rate 74 BUN/Creatinine Ratio 17 Glucose Level 145 H 70-105 MG/DL Calcium Level 9.6 8.5-10.1 MG/DL Corrected Calcium 9.9 8.5-10.1 MG/DL Total Bilirubin 0.6 0.1-1.0 MG/DL Aspartate Amino Transf (AST/SGOT) 18 5-34 U/L Alanine Aminotransferase (ALT/SGPT) 20 0-55 U/L Alkaline Phosphatase 108 40-136 U/L Total Protein 7.6 6.4-8.2 GM/DL Albumin 3.6 3.2-4.5 GM/DL Urine Color YELLOW Urine Clarity CLEAR Urine pH 6.0 5-9 Urine Specific [place] 1.015 L 1.016-1.022 Urine Protein NEGATIVE NEGATIVE Urine Glucose (UA) NEGATIVE NEGATIVE Urine Ketones NEGATIVE NEGATIVE Urine Nitrite NEGATIVE NEGATIVE Urine Bilirubin NEGATIVE NEGATIVE Urine Urobilinogen 0.2 < = 1.0 MG/DL Urine Leukocyte Esterase NEGATIVE NEGATIVE Urine RBC (Auto) NEGATIVE NEGATIVE Urine RBC NONE /HPF Urine WBC 0-2 /HPF Urine Squamous Epithelial Cells 0-2 /HPF Urine Crystals NONE /LPF Urine Bacteria NEGATIVE /HPF Urine Casts NONE /LPF Urine Mucus NEGATIVE /LPF Urine Culture Indicated NO Micro Results Microbiology 05/21/22 Blood Culture - Preliminary, Resulted No growth 05/21/22 Urine Culture - Final, Complete NO GROWTH 05/21/22 Blood Culture - Preliminary, Resulted No growth My Orders Orders - MEGHANNTIFFANY DO Cbc With Automated Diff (05/21/22 08:37) Comprehensive Metabolic Panel (05/21/22 08:37) Blood Culture (05/21/22 08:37) Urinalysis (05/21/22 08:37) Urine Culture (05/21/22 08:37) Protime With Inr (05/21/22 08:37) Partial Thromboplastin Time (05/21/22 08:37) Chest 1 View, Ap/Pa Only (05/21/22 08:37) Ed Iv/Invasive Line Start (05/21/22 08:37) Vital Signs Adult Sepsis Patie Q15M (05/21/22 08:37) Vital Signs/I&O 05/21/22 05/21/22 08:30 10:33 Pulse 87 84 Resp 16 16 B/P (MAP) 137/103 (114) 144/96 Pulse Ox 94 96 O2 Delivery Room Air Room Air Capillary Refill : Less Than 3 Seconds Blood Pressure Mean: 114 Departure Communication (Admissions) Patient is hemodynamically stable. He is completely alert, oriented. He has no complaints upon his arrival other than being tired. UA shows no evidence for continued UTI. Chest x-ray shows no evidence for pneumonia. Chemistry panel obtained and normal, no evidence for electrolyte abnormality, renal impairment, acidosis. CBC obtained which is also normal showing no evidence of anemia, leukocytosis or thrombocytopenia. I spoke at length with the patient and his family. They are comfortable with discharge back to the nursing facility at this time. He is completely alert, oriented and in no neurologic deficits or weakness whatsoever. I do not believe CT of his brain is warranted. Family agrees with this assessment after discussion. Discharged back to the nursing facility in stable condition. Impression Primary Impression: Weakness Disposition: 01 HOME, SELF-CARE Condition: Stable Departure-Patient Inst. Referrals: ARIES BARBOZA MD (PCP/Family) Primary Care Physician Patient Instructions: Generalized Weakness Add. Discharge Instructions: Michael was seen for weakness and reported unresponsiveness. There is no evidence for acute medical condition at this time. His urine is not infected. His chest xray shows no pneumonia or other findings. His labs are normal and reassuring, His vital signs are also normal. Please follow up with his primary doctor for further testing as necessary. Return to the ER for any severe concerns. All discharge instructions reviewed with patient and/or family. Voiced understanding. TIFFANY ZAVALETA DO May 21, 2022 08:42
[2022-05-21 08:54] LABS: BILIRUBIN,URINE NEGATIVE (NEGATIVE); CLARITY,URINE CLEAR; COLOR,URINE YELLOW; GLUCOSE, URINE (UA) NEGATIVE (NEGATIVE); KETONES,URINE NEGATIVE (NEGATIVE); LEUKOCYTE ESTERASE ,URINE NEGATIVE (NEGATIVE); NITRITE,URINE NEGATIVE (NEGATIVE); PROTEIN,URINE NEGATIVE (NEGATIVE)
[2022-05-21 08:57] LABS: BASOPHILS % (AUTO) 0 % (0-10); EOSINOPHILS # (AUTO) 0.6 10^3/uL (0.0-0.3); EOSINOPHILS % (AUTO) 9 % (0-10); HEMATOCRIT 37 % (40-54); HEMOGLOBIN 12.4 g/dL (13.3-17.7); LYMPHOCYTES # (AUTO) 1.9 10^3/uL (1.0-4.0); LYMPHOCYTES % (AUTO) 29 % (12-44); MEAN CORPUSCULAR HEMOGLOBIN 30 pg (25-34); MEAN CORPUSCULAR HGB CONC 33 g/dL (32-36); MEAN CORPUSCULAR VOLUME 89 fL (80-99); MEAN PLATELET VOLUME 9.6 fL (9.0-12.2); MONOCYTES # (AUTO) 0.8 10^3/uL (0.0-1.0); MONOCYTES % (AUTO) 12 % (0-12); NEUTROPHILS # (AUTO) 3.1 10^3/uL (1.8-7.8); NEUTROPHILS % (AUTO) 49 % (42-75); PLATELET COUNT 150 10^3/uL (130-400); WHITE BLOOD COUNT 6.4 10^3/uL (4.3-11.0)
[2022-05-21 09:00] LABS: ALBUMIN 3.6 GM/DL (3.2-4.5)
[2022-05-21 09:01] LABS: POTASSIUM 4.3 MMOL/L (3.6-5.0)
[2022-05-21 09:02] LABS: CALCIUM 9.6 MG/DL (8.5-10.1); INR 1.1 (0.8-1.4); PROTHROMBIN TIME PATIENT 14.6 SEC (12.2-14.7)
[2022-05-21 09:03] LABS: BACTERIA,URINE NEGATIVE /HPF; SQUAMOUS EPITHELIAL CELL,UR 0-2 /HPF; WBC,URINE 0-2 /HPF
[2022-05-21 09:03] LABS: TOTAL PROTEIN 7.6 GM/DL (6.4-8.2)
[2022-05-21 09:05] LABS: BILIRUBIN,TOTAL 0.6 MG/DL (0.1-1.0)
[2022-05-21 09:07] LABS: CREATININE SERUM 0.99 MG/DL (0.60-1.30)
--- NOTE | 2022-05-21 09:17 | Diagnostic Imaging Report ---
INDICATION: Altered mental status. COMPARISON: 05/28/2018 TECHNIQUE: Single radiograph of the chest dated 05/21/2022. FINDINGS: Interval placement of a loop recorder overlying the left chest. 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 The cardiac silhouette is enlarged. Mild central pulmonary vascular congestion. Bilateral predominantly interstitial opacities are identified. Low lung volumes. No significant pleural effusion. No pneumothorax. Post surgical changes associated with the right shoulder. No acute osseous abnormality. IMPRESSION: Mild cardiomegaly with mild central pulmonary vascular congestion. Bilateral interstitial opacities with low lung volumes. Findings likely relate to minimal interstitial edema given pulmonary vascular congestion. Interstitial infiltrate felt less likely. Interval placement of a loop recorder overlying the left chest. Additional chronic and postsurgical changes as above. Dictated by: Dictated on workstation # [id number]
[2022-05-21 10:33] VITALS: BP 144/96
== END 2022-05-21 10:33 | disposition home or self-care (01) ==
LOC: EDUNIT# 08:29 → ER 08:30
DX: R53.1 Weakness (principal); E11.9 Type 2 diabetes mellitus without complications; Z79.4 Long term (current) use of insulin
CPT/HCPCS: 36415; 71045; 80053; 81000; 85025; 85610; 85730; 87040; 87088

== ENCOUNTER 2022-06-14 09:33 | Outpatient (RCR) | payer MEDICARE, BC | END 2022-06-26 | disposition home or self-care (01) | LOC: ONC 09:33 | PROVIDERS: ATTEND Radiology Radiation Oncology | DX: C44.219 Basal cell carcinoma of skin of left ear and external auricular canal (principal); I25.10 Atherosclerotic heart disease of native coronary artery without angina pectoris; I65.23 Occlusion and stenosis of bilateral carotid arteries; I73.9 Peripheral vascular disease, unspecified; I48.0 Paroxysmal atrial fibrillation; I10 Essential (primary) hypertension; E78.00 Pure hypercholesterolemia, unspecified; E66.9 Obesity, unspecified; E11.9 Type 2 diabetes mellitus without complications; Z79.01 Long term (current) use of anticoagulants; Z95.9 Presence of cardiac and vascular implant and graft, unspecified | CPT/HCPCS: 99213 ==

== ENCOUNTER 2022-09-27 12:19 | Observation (INO) | payer MEDICARE, BC ==
[~2022-09-27] VITALS: Ht 177.8 cm; Wt 98.0 kg
--- NOTE | 2022-09-27 12:31 | ED Fall/Injury ---
General Stated Complaint: FALL | LT SHOULDER INJ Source: patient Exam Limitations: no limitations (ZORA DUVALL) History of Present Illness Date Seen by Provider: Sep 27, 2022 Time Seen by Provider: 12:28 Initial Comments Patient is a 87-year-old male who was brought to the ED by EMS for evaluation after a fall. Patient with a mechanical fell last night. States he attempted to get up off his bed twist and turn lost his balance landed on his left posterior back. Denies hitting his head or loss of consciousness, Neck pain. Patient is complaining of left posterior rib pain. Pain worse with any type of movement. Patient required assistance to get back on his bed. Resident at [facility]. Has not been able to use a walker secondary to the pain. Patient denies chest pain, shortness of breath, abdominal pain, vomiting, diarrhea, headache, dizziness, hip pain, visual changes. Denies taking anything for pain. Patient Was evaluated last night but patient did not want to be seen. Bruising and swelling to the left posterior ribs. (ZORA DUVALL) Allergies and Home Medications Allergies Coded Allergies: No Known Drug Allergies (Unverified , 06/06/17) Patient Home Medication List Home Medication List Reviewed: Yes (ZORA DUVALL) Acetaminophen (Tylenol Extra Strength) 500 Mg Tablet, 1,000 MG PO Q6H PRN for PAIN-MILD (1-4), (Reported) Entered as Reported by: GIOVANY VILLELA on 09/27/22 154 Last Action: Reviewed Apixaban (Eliquis) 2.5 Mg Tablet, 2.5 MG PO BID, (Reported) Entered as Reported by: GIOVANY VILLELA on 09/27/22 154 Last Action: Reviewed Aspirin (Aspirin EC) 81 Mg Tablet.dr, 81 MG PO DAILY, (Reported) Entered as Reported by: GIOVANY VILLELA on 09/27/22 154 Last Action: Reviewed Atorvastatin Calcium (Atorvastatin Calcium) 20 Mg Tablet, 20 MG PO HS, (Reported) Entered as Reported by: AGUILA MELLO on 06/06/17 1008 Last Action: Reviewed Calcium Carbonate (Calcium) 500 Mg Tablet, 500 MG PO DAILY, (Reported) Entered as Reported by: JUANI RENE on 08/14/21 1118 Last Action: Reviewed Carvedilol (Carvedilol) 3.125 Mg Tablet, 3.125 MG PO BID, (Reported) Entered as Reported by: GIOVANY VILLELA on 09/27/221539 Last Action: Reviewed Cilostazol (Cilostazol) 100 Mg Tablet, 100 MG PO BID, (Reported) Entered as Reported by: AGUILA MELLO on 06/06/17 1008 Last Action: Reviewed Diltiazem HCl (Diltiazem 24Hr ER) 180 Mg Cap.er.24h, 180 MG PO DAILY, (Reported) Entered as Reported by: GIOVANY VILLELA on 09/27/221539 Last Action: Reviewed Insulin Detemir (Levemir Flexpen) 100 Unit/Ml (3 Ml) Insuln.pen, 20 UNITS SC 1600 AT EVENING MEAL, (Reported) Entered as Reported by: GIOVANY VILLELA on 09/27/221539 Last Action: Reviewed Loperamide HCl (Imodium A-D) 2 Mg Tablet, 2-4 MG PO UD, (Reported) Entered as Reported by: JUANI RENE on 08/14/21 1119 Last Action: Reviewed Meloxicam (Meloxicam) 15 Mg Tablet, 15 MG PO DAILY PRN for PAIN-BREAKTHROUGH, (Reported) Entered as Reported by: GIOVANY VILLELA on 09/27/221539 Last Action: Reviewed Methyl Salicylate/Menthol (Salonpas Patch) 10 %-3 % Adh..patch, 1 EACH TP DAILY, (Reported) Entered as Reported by: GIOVANY VILLELA on 09/27/221539 Last Action: Reviewed Multivitamin (Multivitamin) 1 Each Tablet, 1 EACH PO DAILY, (Reported) Entered as Reported by: GIOVANY VILLELA on 09/27/221539 Last Action: Reviewed Brighton-3 Fatty Acids/Fish Oil (Brighton 3 1,000 mg Softgel) 300 Mg-1,000 Mg Capsule, 1 EACH PO DAILY, (Reported) Entered as Reported by: GIOVANY VILLELA on 09/27/221539 Last Action: Reviewed Ramipril (Ramipril) 5 Mg Capsule, 5 MG PO DAILY, (Reported) Entered as Reported by: GIOVANY VILLELA on 09/27/221539 Last Action: Reviewed Spironolactone (Spironolactone) 25 Mg Tablet, 25 MG PO DAILY, (Reported) Entered as Reported by: NOEL ZARAGOZA on 12/03/17 0738 Last Action: Reviewed Discontinued Medications Acetaminophen (Tylenol Extra Strength) 500 Mg Tablet, 1,000 MG PO Q6H PRN for PAIN-MILD (1-4), (Reported) Discontinued Reason: Duplicate Order Entered as Reported by: JUANI RENE on 08/14/21 1117 Last Action: Discontinued Apixaban (Eliquis) 2.5 Mg Tablet, 2.5 MG PO BID, (Reported) Discontinued Reason: Duplicate Order Entered as Reported by: JUANI RENE on 08/14/21 1053 Last Action: Discontinued Aspirin (Aspirin) 81 Mg Tab.chew, 81 MG PO DAILY, (Reported) Discontinued Reason: Duplicate Order Entered as Reported by: JUANI RENE on 08/14/21 1118 Last Action: Discontinued Carvedilol (Carvedilol) 3.125 Mg Tablet, 3.125 MG PO BID Discontinued Reason: Duplicate Order Prescribed by: ADELITA MARTINS on 08/21/21 1048 Last Action: Discontinued Diltiazem HCl (Dilt-Xr) 180 Mg Cap.er.deg, 180 MG PO DAILY, (Reported) Discontinued Reason: Duplicate Order Entered as Reported by: JUANI RENE on 08/14/21 1059 Last Action: Discontinued Insulin Glargine,Hum.rec.anlog (Lantus Solostar) 100 Unit/1 Ml Insuln.pen, 20 UNITS SC 1700, (Reported) Discontinued Reason: Duplicate Order Entered as Reported by: AGUILA MELLO on 06/06/17 1038 Last Action: Discontinued Multivit-Min/FA/Lycopene/Lut (Certavite Sr-Antioxidant Tab) 1 Each Tablet, 1 EACH PO DAILY, (Reported) Discontinued Reason: Prescription changed Entered as Reported by: JUANI RENE on 08/14/21 1053 Brighton 3 Polyunsat Fatty Acids (Fish Oil 1,000 mg Capsule) 1,000 Mg Cap, 1,000 MG PO DAILY, (Reported) Discontinued Reason: Prescription changed Entered as Reported by: AGUILA MELLO on 06/06/17 1008 Ramipril (Ramipril) 5 Mg Capsule, 5 MG PO DAILY Discontinued Reason: Duplicate Order Prescribed by: ADELITA MARTINS on 08/21/21 1048 Last Action: Discontinued Review of Systems Review of Systems Constitutional: No chills, No diaphoresis, No fever, No malaise, No weakness Eyes: Denies Blurred Vision, Denies Drainage, Denies Decreased Acuity Ears, Nose, Mouth, Throat: denies ear pain Respiratory: No cough, No dyspnea on exertion; other (rib pain) Cardiovascular: No chest pain, No edema Gastrointestinal: No abdominal pain, No diarrhea, No nausea, No vomiting Genitourinary: No decreased output, No discharge Musculoskeletal: joint pain, joint swelling, muscle pain Skin: change in color (Bruising to the left posterior lateral thoracic paraspinal muscle) (ZORA DUVALL) All Other Systems Reviewed Negative Unless Noted: Yes (ZORA DUVALL) Past Mkncauz-Fisoet-Xdjeyf Hx Immunizations Up To Date PED Vaccines UTD: Yes (ZORA DUVALL) Seasonal Allergies Seasonal Allergies: No (ZORA DUVALL) Past Medical History Surgery/Hospitalization HX: Bilateral Rotator Cuff Repair Right Knee Replacement Right Femoral Fracture plated Broken bilateral legs 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 Heart Cath Surgeries: Yes (rotator cuff bilat, knee replacement, broken legs bilat, melanomo in ear re) Cardiac, Valve Replacement Respiratory: No Currently Using CPAP: No Currently Using BIPAP: No Cardiac: Yes (Heart failure with ischemic cardiomyopathy) Angina, Chronic Edema/Swelling, Coronary Artery Disease, Heart Attack, High Cholesterol, Hypertension, Peripheral Vascular, Valvular Heart Disease Neurological: Yes Dementia, Neuropathy Reproductive Disorders: No Sexually Transmitted Disease: No HIV/AIDS: No Genitourinary: No Gastrointestinal: No Musculoskeletal: Yes Gout Endocrine: Yes Diabetes, Insulin dep HEENT: Yes Cataract Loss of Vision: Denies Hearing Impairment: Hard of Hearing Cancer: Yes Skin, Melanoma Did You Recieve Any Treatments: No Psychosocial: No Sleep Difficulties Integumentary: Yes (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 ) Blood Disorders: No Adverse Reaction/Blood Tranf: No (ZORA DUVALL) Family Medical History Cancer 09 SISTER, Onset:60 years & older (OVARIAN CANCER) 09 SISTER, Onset:40's - 50 (BREAST CANCER) Chest pain 03 FATHER, Onset:50's - 60 (PR) Dementia 03 MOTHER, Onset:60 years & older Family history: Alzheimer's disease 03 MOTHER, Onset:60 years & older Family history: Arthritis 03 FATHER, Onset:40's - 50 Family history: Breast disease 09 SISTER, Onset:40's - 50 ( OF BREAST CANCER) Family history: Cardiovascular disease 03 FATHER, Onset:40's - 50 Family history: Hypertension 03 FATHER, Onset:40's - 50 Heart disease 03 FATHER, Onset:40's - 50 Hypercholesterolemia 03 FATHER, Onset:40's - 50 Myocardial infarction 03 FATHER, Onset:40's - 50 Visual impairment 09 SISTER, Onset:40's - 50 No Family History of: Abdominal aortic aneurysm [place]'s disease Alcoholism Aphasia Cancer of colon Cataract Congenital heart disease Congestive heart failure Cystic fibrosis Dysphagia Family history: Allergy Family history: Asthma Family history: Coronary thrombosis Family history: Diabetes mellitus Family history: Gastrointestinal disease Family history: Glaucoma Family history: Osteoporosis Family history: Thyroid disorder Headache Hearing loss Hereditary disease History of - anemia History of - disorder History of - respiratory disease History of drug abuse Human immunodeficiency virus (HIV) seropositivity Infertile Kidney disease Malignant neoplasm of lung Parkinson's disease Prostate cancer Psychotic disorder Seizure disorder Stroke Tuberculosis Heart Disease, Cancer, CAD Under 55 Years Old (ZORA DUVALL) Physical Exam Vital Signs Vital Signs - First Documented 09/27/22 12:19 Temp 35.5 Pulse 59 Resp 16 B/P (MAP) 123/75 (91) Pulse Ox 95 O2 Delivery Room Air (HEATHER PATRICK MD) Vital Signs Capillary Refill : (ZORA DUVALL) Height, Weight, BMI Height: 5'10.00" Weight: 215lbs. 0.0oz. 97.667993wt; 31.00 BMI Method:Stated General Appearance: WD/WN, mild distress HEENT: PERRL/EOMI, normal ENT inspection, TMs normal, pharynx normal, other (No bruising, swelling to the head. No scalp tenderness.) Neck: non-tender, full range of motion, supple, normal inspection, other (No cervical midline tenderness. Normal active range of motion.) Cardiovascular: regular rate, rhythm, no edema, no gallop, no JVD Respiratory: other (Left lateral thoracic paraspinal muscle tenderness with crepitus. Swelling and bruising noted. Mild left lower back tenderness.) Gastrointestinal: normal bowel sounds, non tender, soft, no organomegaly Extremities: normal range of motion, non-tender, normal inspection, no pedal edema, no calf tenderness, other (Normal active range of motion left shoulder. 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 as tested, no motor/sensory deficits, alert, normal mood/affect, oriented x 3 Skin: other (Bruising left posterior shoulder.) (ZORA DUVALL) Progress/Results/Core Measures Results/Orders Lab Results Laboratory Tests Test 09/27/22 14:01 Range/Units White Blood Count 9.0 4.3-11.0 10^3/uL Red Blood Count 4.09 L 4.30-5.52 10^6/uL Hemoglobin 12.1 L 13.3-17.7 g/dL Hematocrit 36 L 40-54 % Mean Corpuscular Volume 88 80-99 fL Mean Corpuscular Hemoglobin 30 25-34 pg Mean Corpuscular Hemoglobin Concent 34 32-36 g/dL Red Cell Distribution Width 13.2 10.0-14.5 % Platelet Count 171 130-400 10^3/uL Mean Platelet Volume 9.4 9.0-12.2 fL Immature Granulocyte % (Auto) 1 % Neutrophils (%) (Auto) 72 42-75 % Lymphocytes (%) (Auto) 17 12-44 % Monocytes (%) (Auto) 10 0-12 % Eosinophils (%) (Auto) 0 0-10 % Basophils (%) (Auto) 0 0-10 % Neutrophils # (Auto) 6.5 1.8-7.8 10^3/uL Lymphocytes # (Auto) 1.5 1.0-4.0 10^3/uL Monocytes # (Auto) 0.9 0.0-1.0 10^3/uL Eosinophils # (Auto) 0.0 0.0-0.3 10^3/uL Basophils # (Auto) 0.0 0.0-0.1 10^3/uL Immature Granulocyte # (Auto) 0.1 0.0-0.1 10^3/uL Prothrombin Time 15.1 H 12.2-14.7 SEC INR Comment 1.2 0.8-1.4 Activated Partial Thromboplast Time 33 24-35 SEC Sodium Level 134 L 135-145 MMOL/L Potassium Level 4.7 3.6-5.0 MMOL/L Chloride Level 101 98-107 MMOL/L Carbon Dioxide Level 24 21-32 MMOL/L Anion Gap 9 5-14 MMOL/L Blood Urea Nitrogen 28 H 7-18 MG/DL Creatinine 1.11 0.60-1.30 MG/DL Estimat Glomerular Filtration Rate 64 BUN/Creatinine Ratio 25 Glucose Level 185 H 70-105 MG/DL Calcium Level 10.2 H 8.5-10.1 MG/DL Corrected Calcium 10.3 H 8.5-10.1 MG/DL Total Bilirubin 1.0 0.1-1.0 MG/DL Aspartate Amino Transf (AST/SGOT) 18 5-34 U/L Alanine Aminotransferase (ALT/SGPT) 15 0-55 U/L Alkaline Phosphatase 98 40-136 U/L Total Protein 7.4 6.4-8.2 GM/DL Albumin 3.9 3.2-4.5 GM/DL (HEATHER PATRICK MD) Vital Signs/I&O 09/27/22 09/27/22 12:19 13:48 Temp 35.5 Pulse 59 Resp 16 B/P (MAP) 123/75 (91) Pulse Ox 95 O2 Delivery Room Air Room Air (HEATHER PATRICK MD) Comment Sinus rhythm with first-degree AV block with frequent ventricular premature complexes, 74 bpm, QRS duration 110 MS, QTc 408 MS (ZORA DUVALL) Departure Communication (PCP) Patient with a mechanical fall last night. Denies losing any consciousness. Patient can recall the fall. GCS 15. Alert and orient x3. Baseline confusion according to family. History of dementia. Patient tripped after getting out of his bed. Landed on his left upper back. Complaining of left posterior rib pain. Denies hitting his head or loss of consciousness. Patient was brought to the ED by EMS. He was complaining of hip pain and shoulder pain but denied of any hip or shoulder pain on arrival. Does have bruising and crepitus to the le ft posterior ribs. Lung sounds clear bilateral. Stable vital signs. Extensive medical history. CBC, CMP, CT scan of the chest, thoracic and lumbar spine x- ray of the left hip and shoulder was ordered. CT scan of the thoracic lumbar spine negative for acute fracture. X-ray of the left shoulder and hip negative for fracture. CT scan of the chest shows seventh, eighth and ninth rib fracture. Small left pleural effusion measuring 1.7 cm. Concerning for hemothorax. No evidence of pneumothorax. Patient was discussed with Dr. Lara general surgeon recommended observation. If no acute changes of the pleural effusion patient can be safely discharged. He is on Eliquis. No evidence trauma to the head. Patient has at his current normal baseline. He has no cervical midline tenderness. Oxygen 97% on room air. Patient was bradycardiac. EKG showed sinus rhythm with first-degree AV block with frequent ventricular premature complexes at 74 bpm. Lab work otherwise unremarkable. Patient will be admitted under observation. Consult hospitalist. lab work generalized unremarkable. (ZORA DUVALL) Impression Primary Impression: Multiple rib fractures Disposition: ADMITTED INPATIENT Condition: Stable Admissions Decision to Admit Reason: Admit from ER (General) Decision to Admit/Date: Sep 27, 2022 Time/Decision to Admit Time: 14:38 (ZORA DUVALL) Departure-Patient Inst. Referrals: ARIES BARBOZA MD (PCP/Family) Primary Care Physician ATTENDING PHYSICIAN NOTE: I was physically present as attending physician in the emergency department during the care of this patient, but I was not directly involved in the decision making or delivery of care for this patient. (HEATHER PATRICK MD) ZORA DUVALL Sep 27, 2022 12:31 HEATHER PATRICK MD Sep 27, 2022 18:21
--- NOTE | 2022-09-27 13:08 | Diagnostic Imaging Report ---
PROCEDURE: CT chest without contrast. TECHNIQUE: Multiple contiguous axial images were obtained through the chest without the use of intravenous contrast. Auto Exposure Controls were utilized during the CT exam to meet ALARA standards for radiation dose reduction. INDICATION: Left rib pain There are postoperative changes from aortic valvuloplasty. There are severe coronary calcific arteriosclerosis. There is a left pleural effusion layering out to a depth of 1.7 cm. There are some associated left basilar atelectasis. There is no pneumothorax. There are emphysematous changes in the lungs. There is an old healed fracture of left posterolateral 10th rib. There are displaced fractures of the left posterior lateral 8th and 9th ribs. There is nondisplaced fracture of the left posterior 7th rib. IMPRESSION: Acute fractures of left 7th, 8th and 9th ribs. The 8th and 9th ribs are displaced. There is a small left pleural effusion. Dictated by: Dictated on workstation # [id number]
--- NOTE | 2022-09-27 13:11 | Diagnostic Imaging Report ---
INDICATION: Left hip pain. FINDINGS: Two views of the left hip show no fracture, dislocation, or other acute abnormalities. IMPRESSION: Negative left hip. Dictated by: Dictated on workstation # [id number]
--- NOTE | 2022-09-27 13:11 | Diagnostic Imaging Report ---
PROCEDURE: CT thoracic and lumbar spine without contrast. TECHNIQUE: Multiple contiguous axial images were obtained through the thoracic and lumbar spine without the use of intravenous contrast. Sagittal and coronal reformations were then performed. All CT scans use one or more of the following dose optimizing techniques: automated exposure control, MA and/or KvP adjustment based on a patient size and exam type, or iterative reconstruction. INDICATION: Back pain after fall. COMPARISON: CT lumbar spine from 04/19/2020 FINDINGS: Thoracic spine: There are multiple acute fractures involving the lower left ribs which are better visualized and detailed on the CT chest report, dictated separately. Chronic compression fractures of T7 and T8. There is a remote 2 column burst fracture of T12. No retropulsed ossific fragments into the spinal canal. No acute fracture within the thoracic vertebrae. No high-grade spinal canal stenosis. Lumbar spine: Central superior endplate height loss of L4 is likely due to a chronic Schmorl's node. No acute fracture within the lumbar vertebrae. Multilevel degenerative changes are most advanced at L3-L4 and L4-L5 where there is moderate to severe spinal canal stenosis due to disc bulges, facet osteoarthritis and ligament flavum hypertrophy. No fracture within the visualized aspects of the sacrum. Mild ectasia infrarenal abdominal aorta measuring 2.6 cm has severe calcifications. IMPRESSION: 1. No acute fracture in the thoracic or lumbar spine. 2. Chronic fractures of T7, T8 and T12. 3. Severe spinal canal stenosis at L3-L4 and L4-L5 due to degenerative disc disease and facet osteoarthritis. This is similar to prior examination of 2019. 4. Please see CT chest report for details of the left-sided rib fractures. Dictated by: Dictated on workstation # [id number]
--- NOTE | 2022-09-27 13:11 | Diagnostic Imaging Report ---
INDICATION: Left shoulder injury. FINDINGS: Three views of the left shoulder show postoperative changes from tendon repair with an anchor in the humeral head. There is no acute fracture or dislocation. IMPRESSION: Postsurgical changes in the left shoulder. No acute abnormalities seen. Dictated by: Dictated on workstation # [id number]
[2022-09-27 14:08] LABS: BASOPHILS % (AUTO) 0 % (0-10); EOSINOPHILS % (AUTO) 0 % (0-10); HEMATOCRIT 36 % (40-54); HEMOGLOBIN 12.1 g/dL (13.3-17.7); LYMPHOCYTES # (AUTO) 1.5 10^3/uL (1.0-4.0); LYMPHOCYTES % (AUTO) 17 % (12-44); MEAN CORPUSCULAR HEMOGLOBIN 30 pg (25-34); MEAN CORPUSCULAR HGB CONC 34 g/dL (32-36); MEAN CORPUSCULAR VOLUME 88 fL (80-99); MEAN PLATELET VOLUME 9.4 fL (9.0-12.2); MONOCYTES # (AUTO) 0.9 10^3/uL (0.0-1.0); MONOCYTES % (AUTO) 10 % (0-12); NEUTROPHILS # (AUTO) 6.5 10^3/uL (1.8-7.8); NEUTROPHILS % (AUTO) 72 % (42-75); PLATELET COUNT 171 10^3/uL (130-400)
[2022-09-27 14:20] LABS: ALBUMIN 3.9 GM/DL (3.2-4.5); POTASSIUM 4.7 MMOL/L (3.6-5.0)
[2022-09-27 14:21] LABS: CALCIUM 10.2 MG/DL (8.5-10.1)
[2022-09-27 14:22] LABS: TOTAL PROTEIN 7.4 GM/DL (6.4-8.2)
[2022-09-27 14:26] LABS: CREATININE SERUM 1.11 MG/DL (0.60-1.30)
[2022-09-27 14:43] LABS: INR 1.2 (0.8-1.4); PROTHROMBIN TIME PATIENT 15.1 SEC (12.2-14.7)
--- NOTE | 2022-09-27 14:45 | History & Physical-Surgical ---
History of Present Illness History of Present Illness Patient Consulted On(wes/time) 09/27/22 14:40 Date Seen by Provider: Sep 27, 2022 Time Seen by Provider: 14:00 History of Present Illness Surgery asked to admit regarding Hemothorax and rib fractures. HPI per ED: Patient is a 87-year-old male who was brought to the ED by EMS for evaluation after a fall. Patient with a mechanical fell last night. States he attempted to get up off his bed twist and turn lost his balance landed on his left posterior back. Denies hitting his head or loss of consciousness, Neck pain. Patient is complaining of left posterior rib pain. Pain worse with any type of movement. Patient required assistance to get back on his bed. Resident at [facility]. Has not been able to use a walker secondary to the pain. Patient denies chest pain, shortness of breath, abdominal pain, vomiting, diarrhea, headache, dizziness, hip pain, visual changes. Denies taking anything for pain. Patient Was evaluated last night but patient did not want to be seen. Bruising and swelling to the left posterior ribs. Pt has some dementia and I spoke with family as well. Patient reports that he fell yesterday around 10pm at the assisted living facility. States that he fell backwards onto his back. Denies any pain yesterday immediately after the fall, but states when he woke up this morning he was very sore and the pain has progressively worsened. He states that he just has mid-back pain and rates the pain as a 3/10. Daughter states that the patient recently started physical therapy again for falls. Patient denies hitting his head, shortness of breath, nausea, vomiting, abdominal pain, dizziness or weakness. Allergies and Home Medications Allergies Coded Allergies: No Known Drug Allergies (Unverified , 06/06/17) Patient Home Medication List Home Medication List Reviewed: Yes Acetaminophen (Tylenol Extra Strength) 500 Mg Tablet, 1,000 MG PO Q6H PRN for PAIN-MILD (1-4), (Reported) Entered as Reported by: GIOVANY VILLELA on 09/27/221539 Last Action: Reviewed Apixaban (Eliquis) 2.5 Mg Tablet, 2.5 MG PO BID, (Reported) Entered as Reported by: GIOVANY VILLELA on 09/27/221539 Last Action: Reviewed Aspirin (Aspirin EC) 81 Mg Tablet.dr, 81 MG PO DAILY, (Reported) Entered as Reported by: GIOVANY VILLELA on 09/27/221539 Last Action: Reviewed Atorvastatin Calcium (Atorvastatin Calcium) 20 Mg Tablet, 20 MG PO HS, (Reported) Entered as Reported by: AGUILA MELLO on 06/06/171007 Last Action: Reviewed Calcium Carbonate (Calcium) 500 Mg Tablet, 500 MG PO DAILY, (Reported) Entered as Reported by: JUANI RENE on 08/14/211117 Last Action: Reviewed Carvedilol (Carvedilol) 3.125 Mg Tablet, 3.125 MG PO BID, (Reported) Entered as Reported by: GIOVANY VILLELA on 09/27/221539 Last Action: Reviewed Cilostazol (Cilostazol) 100 Mg Tablet, 100 MG PO BID, (Reported) Entered as Reported by: AGUILA MELLO on 06/06/171007 Last Action: Reviewed Diltiazem HCl (Diltiazem 24Hr ER) 180 Mg Cap.er.24h, 180 MG PO DAILY, (Reported) Entered as Reported by: GIOVANY VILLELA on 09/27/221539 Last Action: Reviewed Insulin Detemir (Levemir Flexpen) 100 Unit/Ml (3 Ml) Insuln.pen, 20 UNITS SC 1600 AT EVENING MEAL, (Reported) Entered as Reported by: GIOVANY VILLELA on 09/27/221539 Last Action: Reviewed Loperamide HCl (Imodium A-D) 2 Mg Tablet, 2-4 MG PO UD, (Reported) Entered as Reported by: JUANI RENE on 08/14/211118 Last Action: Reviewed Meloxicam (Meloxicam) 15 Mg Tablet, 15 MG PO DAILY PRN for PAIN-BREAKTHROUGH, (Reported) Entered as Reported by: GIOVANY VILLELA on 09/27/221539 Last Action: Reviewed Methyl Salicylate/Menthol (Salonpas Patch) 10 %-3 % Adh..patch, 1 EACH TP DAILY, (Reported) Entered as Reported by: GIOVANY VLILELA on 09/27/221539 Last Action: Reviewed Multivitamin (Multivitamin) 1 Each Tablet, 1 EACH PO DAILY, (Reported) Entered as Reported by: GIOVANY VILLELA on 09/27/221539 Last Action: Reviewed Wayne-3 Fatty Acids/Fish Oil (Wayne 3 1,000 mg Softgel) 300 Mg-1,000 Mg Capsule, 1 EACH PO DAILY, (Reported) Entered as Reported by: GIOVANY VILLELA on 09/27/22 154 Last Action: Reviewed Ramipril (Ramipril) 5 Mg Capsule, 5 MG PO DAILY, (Reported) Entered as Reported by: GIOVANY VILLELA on 09/27/22 154 Last Action: Reviewed Spironolactone (Spironolactone) 25 Mg Tablet, 25 MG PO DAILY, (Reported) Entered as Reported by: NOEL ZARAGOZA on 12/03/17 0738 Last Action: Reviewed Discontinued Medications Acetaminophen (Tylenol Extra Strength) 500 Mg Tablet, 1,000 MG PO Q6H PRN for PAIN-MILD (1-4), (Reported) Discontinued Reason: Duplicate Order Entered as Reported by: JUANI RENE on 08/14/21 1117 Last Action: Discontinued Apixaban (Eliquis) 2.5 Mg Tablet, 2.5 MG PO BID, (Reported) Discontinued Reason: Duplicate Order Entered as Reported by: JUANI RENE on 08/14/21 1053 Last Action: Discontinued Aspirin (Aspirin) 81 Mg Tab.chew, 81 MG PO DAILY, (Reported) Discontinued Reason: Duplicate Order Entered as Reported by: JUANI RENE on 08/14/21 1118 Last Action: Discontinued Carvedilol (Carvedilol) 3.125 Mg Tablet, 3.125 MG PO BID Discontinued Reason: Duplicate Order Prescribed by: ADELITA MARTINS on 08/21/21 1048 Last Action: Discontinued Diltiazem HCl (Dilt-Xr) 180 Mg Cap.er.deg, 180 MG PO DAILY, (Reported) Discontinued Reason: Duplicate Order Entered as Reported by: JUANI RENE on 08/14/21 1059 Last Action: Discontinued Insulin Glargine,Hum.rec.anlog (Lantus Solostar) 100 Unit/1 Ml Insuln.pen, 20 UNITS SC 1700, (Reported) Discontinued Reason: Duplicate Order Entered as Reported by: AGUILA MELLO on 06/06/17 1038 Last Action: Discontinued Multivit-Min/FA/Lycopene/Lut (Certavite Sr-Antioxidant Tab) 1 Each Tablet, 1 EACH PO DAILY, (Reported) Discontinued Reason: Prescription changed Entered as Reported by: JUANI RENE on 08/14/21 1053 Wayne 3 Polyunsat Fatty Acids (Fish Oil 1,000 mg Capsule) 1,000 Mg Cap, 1,000 MG PO DAILY, (Reported) Discontinued Reason: Prescription changed Entered as Reported by: AGUILA MELLO on 06/06/17 1008 Ramipril (Ramipril) 5 Mg Capsule, 5 MG PO DAILY Discontinued Reason: Duplicate Order Prescribed by: ADELITA MARTINS on 08/21/21 1048 Last Action: Discontinued Past Scqitja-Fhsfbq-Bphfko Hx Patient Social History Smoking Status: Former Smoker Former Smoker, Quit: Dec 03, 1982 Type Used: Cigarettes Recent Hopitalizations: Yes Alcohol Use?: No Have you traveled recently?: No Immunizations Up To Date PED Vaccines UTD: Yes Seasonal Allergies Seasonal Allergies: No Surgeries History of Surgeries: Yes (rotator cuff bilat, knee replacement, broken legs bilat, melanomo in ear re) Surgeries: Cardiac, Ear Surgery (Right), Orthopedic (right total knee replacement; broken femur), Valve Replacement Respiratory History of Respiratory Disorde: No Cardiovascular History of Cardiac Disorders: Yes (Heart failure with ischemic cardiomyopathy) Cardiac Disorders: Angina, Chronic Edema/Swelling, Coronary Artery Disease, Heart Attack, High Cholesterol, Hypertension, Peripheral Vascular, Valvular Heart Disease Neurological History of Neurological Disord: Yes Neurological Disorders: Dementia (Vascular ), Neuropathy Reproductive System Hx Reproductive Disorders: No Sexually Transmitted Disease: No HIV/AIDS: No Genitourinary History of Genitourinary Disor: No Gastrointestinal History of Gastrointestinal Di: No Musculoskeletal History of Musculoskeletal Dis: Yes Musculoskeletal Disorders: Gout Endocrine History of Endocrine Disorders: Yes Endocrine Disorders: Diabetes, Insulin dep HEENT History of HEENT Disorders: Yes HEENT Disorders: Cataract Loss of Vision: Denies Hearing Impairment: Hard of Hearing Cancer History of Cancer: Yes Cancer: Skin, Melanoma Psychosocial History of Psychiatric Problem: No Behavioral Health Disorders: Sleep Difficulties Integumentary History of Skin or Integumenta: Yes (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 ) Blood Transfusions History of Blood Disorders: No Adverse Reaction to a Blood Tr: No Family Medical History Significant Family History: Heart Disease, Cancer, CAD Under 55 Years Old Family Medial History: Cancer 09 SISTER, Onset:60 years & older (OVARIAN CANCER) 09 SISTER, Onset:40's - 50 (BREAST CANCER) Chest pain 03 FATHER, Onset:50's - 60 (MD) Dementia 03 MOTHER, Onset:60 years & older Family history: Alzheimer's disease 03 MOTHER, Onset:60 years & older Family history: Arthritis 03 FATHER, Onset:40's - 50 Family history: Breast disease 09 SISTER, Onset:40's 50 ( OF BREAST CANCER) Family history: Cardiovascular disease 03 FATHER, Onset:40's 50 Family history: Hypertension 03 FATHER, Onset:40's - 50 Heart disease 03 FATHER, Onset:40 Hypercholesterolemia 03 FATHER, Onset:40 Myocardial infarction 03 FATHER, Onset:40 Visual impairment 09 SISTER, Onset:40's Review of Systems-General Constitutional: No chills, No dizziness, No fever, No weakness EENTM: No vision loss, No epistaxis Respiratory: No cough, No dyspnea on exertion Cardiovascular: No chest pain, No palpitations Gastrointestinal: No abdominal pain, No nausea, No vomiting Genitourinary: No dysuria, No frequency Musculoskeletal: back pain; No muscle stiffness, No neck pain Skin: No change in color, No change in hair/nails Psychiatric/Neurological: Denies Anxiety, Denies Depressed, Denies Numbness, Denies Tingling All Other Systems Reviewed Negative Unless Noted: Yes Physical Exam-General Problems Physical Exam Vital Signs Vital Signs - First Documented 09/27/22 12:19 Temp 35.5 Pulse 59 Resp 16 B/P (MAP) 123/75 (91) Pulse Ox 95 O2 Delivery Room Air Capillary Refill : Less Than 3 Seconds General Appearance: WD/WN, mild distress (secondary to pain) Eyes: Bilateral Eye PERRL, Bilateral Eye EOMI HEENT: pharynx normal; No scleral icterus (R), No scleral icterus (L) Neck: non-tender, supple Respiratory: chest non-tender, lungs clear, normal breath sounds, no respiratory distress, no accessory muscle use Cardiovascular: regular rate, rhythm, no murmur Peripheral Pulses: 3+ Radial Pulses (R), 3+ Radial Pulses (L) Gastrointestinal: normal bowel sounds, non tender, soft Rectal: deferred Back: no CVA tenderness, no vertebral tenderness, CVA tenderness (L) Extremities: no pedal edema, no calf tenderness Neurologic/Psychiatric: alert, other (oriented x 2 ) Skin: normal color, warm/dry, ecchymosis (on arms) Lymphatic: no adenopathy (neck, axilla or groin) Data Review Labs Laboratory Tests 09/27/22 14:01: White Blood Count 9.0, Red Blood Count 4.09L, Hemoglobin 12.1L, Hematocrit 36L, Mean Corpuscular Volume 88, Mean Corpuscular Hemoglobin 30, Mean Corpuscular Hemoglobin Concent 34, Red Cell Distribution Width 13.2, Platelet Count 171, Mean Platelet Volume 9.4, Immature Granulocyte % (Auto) 1, Neutrophils (%) (Auto) 72, Lymphocytes (%) (Auto) 17, Monocytes (%) (Auto) 10, Eosinophils (%) (Auto) 0, Basophils (%) (Auto) 0, Neutrophils # (Auto) 6.5, Lymphocytes # (Auto) 1.5, Monocytes # (Auto) 0.9, Eosinophils # (Auto) 0.0, Basophils # (Auto) 0.0, I mmature Granulocyte # (Auto) 0.1, Sodium Level 134L, Potassium Level 4.7, Chloride Level 101, Carbon Dioxide Level 24, Anion Gap 9, Blood Urea Nitrogen 28H, Creatinine 1.11, Estimat Glomerular Filtration Rate 64, BUN/Creatinine Ratio 25, Glucose Level 185H, Calcium Level 10.2H, Corrected Calcium 10.3H, Total Bilirubin 1.0, Aspartate Amino Transf (AST/SGOT) 18, Alanine Aminotransferase (ALT/SGPT) 15, Alkaline Phosphatase 98, Total Protein 7.4, Albumin 3.9 Radiology Date of Exam:09/27/22 CT CHEST WO PROCEDURE: CT chest without contrast. TECHNIQUE: Multiple contiguous axial images were obtained through the chest without the use of intravenous contrast. Auto Exposure Controls were utilized during the CT exam to meet ALARA standards for radiation dose reduction. INDICATION: Left rib pain There are postoperative changes from aortic valvuloplasty. There are severe coronary calcific arteriosclerosis. There is a left pleural effusion layering out to a depth of 1.7 cm. There are some associated left basilar atelectasis. There is no pneumothorax. There are emphysematous changes in the lungs. There is an old healed fracture of left posterolateral 10th rib. There are displaced fractures of the left posterior lateral 8th and 9th ribs. There is nondisplaced fracture of the left posterior 7th rib. IMPRESSION: Acute fractures of left 7th, 8th and 9th ribs. The 8th and 9th ribs are displaced. There is a small left pleural effusion. Dictated by: Dictated on workstation # [id number] Dict: 09/27/22 1301 Trans: 09/27/[address] [facility] [id number] Interpreted by: THOMAS LOMAS MD Electronically signed by: THOMAS LOMAS MD 09/27/22 2880 Assessment/Plan Assessment/Plan Admission Diagonsis Hemo-Pneumothorax Multiple rib fractures - Left 7,8,9 Coagulopathy Pulmonary Contusion Admission Status: Observation Assessment/Plan Hemo-Pneumothorax Multiple rib fractures - Left 7,8,9 Coagulopathy Pulmonary Contusion Pt is on anticoagulation for aortic/cardiac stent and has Hemo-pneumothorax. I went over the CT myself and spoke with the ED provider. I then called the Rad iologist because I was suspicious for hemothorax and a couple "bubbles" of air which could represent pneumothorax; the Radiologist confirmed my suspicions. He is 100% on room air, but has pulmonary contusion and I am concerned about increasing hemothorax because of the coagulopathy. I will admit him (hopefully just overnight), start IS use and RT consult, restrict fluids, pain control and recheck labs in am. Will also get a 2 view CXR in the am to reassess left lung. All questions answered to pt and family's satisfaction. Will start him back on 60 CHO diet and he can resume home meds. MARCO HAYES DO Sep 27, 2022 14:45
[2022-09-27] MEDS ORDERED: OMEG1CAP58 PO (15:40)
[2022-09-27] MEDS ORDERED: CARV3.122 PO (15:40)
[2022-09-27] MEDS ORDERED: INSU100I88 SC (15:40)
[2022-09-27] MEDS ORDERED: RAMI5CAP65 PO (15:40)
[2022-09-27] MEDS ORDERED: METH1ADH15 TP (15:40)
[2022-09-27] MEDS ORDERED: ASPI-1238 PO (15:40)
[2022-09-27] MEDS ORDERED: MULT-1136 PO (15:40)
[2022-09-27] MEDS ORDERED: MELO15TA39 PO (15:40)
[2022-09-27] MEDS ORDERED: ACET-2267 PO (15:40)
[2022-09-27] MEDS ORDERED: DILT180C85 PO (15:40)
[2022-09-27] MEDS ORDERED: APIX2.5T PO (15:40)
[2022-09-27 16:08] VITALS: BP 129/74
[2022-09-27] MEDS ORDERED: LACTATED RINGERS 1,000 ML IV SCH (16:30)
[2022-09-27 16:31] VITALS: BP 129/74
[2022-09-27] MEDS ORDERED: LACTATED RINGERS 1,000 ML IV ONE (16:42)
[2022-09-27] MEDS ORDERED: RT-ALBUTEROL/IPRATROPIUM 3 ML (DUONEB) VIAL INH PRN (16:45)
[2022-09-27] MEDS: HYDROcodone/APAP 5 MG/325 MG (LORTAB) TAB PO PRN ×2 (17:38→22:46)
[2022-09-27 19:53] VITALS: BP 124/69
[2022-09-27] MEDS: RT-ALBUTEROL/IPRATROPIUM 3 ML (DUONEB) VIAL INH SCH (20:57)
[2022-09-28] MEDS: RT-ALBUTEROL/IPRATROPIUM 3 ML (DUONEB) VIAL INH SCH ×3 (01:58→15:45)
[2022-09-28 03:06] VITALS: BP 141/67
[2022-09-28] MEDS: HYDROcodone/APAP 5 MG/325 MG (LORTAB) TAB PO PRN ×3 (03:21→14:05)
[2022-09-28 05:54] LABS: BASOPHILS % (AUTO) 0 % (0-10); EOSINOPHILS # (AUTO) 0.2 10^3/uL (0.0-0.3); EOSINOPHILS % (AUTO) 3 % (0-10); HEMATOCRIT 31 % (40-54); HEMOGLOBIN 10.2 g/dL (13.3-17.7); LYMPHOCYTES # (AUTO) 1.4 10^3/uL (1.0-4.0); LYMPHOCYTES % (AUTO) 20 % (12-44); MEAN CORPUSCULAR HEMOGLOBIN 30 pg (25-34); MEAN CORPUSCULAR HGB CONC 33 g/dL (32-36); MEAN CORPUSCULAR VOLUME 88 fL (80-99); MEAN PLATELET VOLUME 9.8 fL (9.0-12.2); MONOCYTES # (AUTO) 0.9 10^3/uL (0.0-1.0); MONOCYTES % (AUTO) 12 % (0-12); NEUTROPHILS # (AUTO) 4.6 10^3/uL (1.8-7.8); NEUTROPHILS % (AUTO) 64 % (42-75); PLATELET COUNT 143 10^3/uL (130-400); WHITE BLOOD COUNT 7.1 10^3/uL (4.3-11.0)
[2022-09-28 06:17] LABS: ALBUMIN 3.3 GM/DL (3.2-4.5); CALCIUM 8.9 MG/DL (8.5-10.1); CREATININE SERUM 0.9 MG/DL (0.60-1.30); POTASSIUM 4.2 MMOL/L (3.6-5.0); TOTAL PROTEIN 6.2 GM/DL (6.4-8.2)
--- NOTE | 2022-09-28 07:42 | Progress Note - Surgery ---
RIANNAJONATHAN 09/28/22 0742: Subjective Date Seen by a Provider: Sep 28, 2022 Time Seen by a Provider: 07:30 Subjective/Events-last exam Patient reports today he is feeling much better. Admits to back pain only with movement. He states that he is using his incentive spirometer. Denies shortness of breath, chest pain, nausea or vomiting. Review of Systems General: No Chills, No Night Sweats HEENT: No Head Aches, No Visual Changes Pulmonary: No Dyspnea, No Cough Cardiovascular: No: Chest Pain, Palpitations Gastrointestinal: No: Nausea, Vomiting Genitourinary: No Dysuria, No Frequency Musculoskeletal: back pain (with movement); No: neck pain, shoulder pain Neurological: No: Numbness, Change in speech Objective Exam Vital Signs Date Time Temp Pulse Resp B/P (MAP) Pulse Ox O2 Delivery O2 Flow Rate FiO2 09/28/22 03:06 36.3 77 17 141/67 (91) 93 Room Air 09/27/22 20:58 93 Room Air 09/27/22 20:00 93 Room Air 09/27/22 19:53 36.6 76 17 124/69 (87) 92 Room Air 09/27/22 16:31 36.6 62 94 21 09/27/22 16:08 36.6 62 18 129/74 (92) 94 Room Air 09/27/22 15:45 93 Room Air 09/27/22 14:45 53 16 151/84 93 Room Air 09/27/22 13:48 Room Air 09/27/22 12:19 35.5 59 16 123/75 (91) 95 Room Air I & O 09/28/22 07:00 Intake Total 200 ml Balance 200 ml Capillary Refill : Less Than 3 Seconds General Appearance: No Apparent Distress, WD/WN HEENT: PERRL/EOMI Neck: Non Tender Respiratory: Chest Non Tender, Normal Breath Sounds, No Accessory Muscle Use, No Respiratory Distress Cardiovascular: Regular Rate, Rhythm, No Murmur Peripheral Pulses: 3+ Radial Pulses (R), 3+ Radial Pulses (L) Gastrointestinal: normal bowel sounds, non tender, soft, no organomegaly Extremity: No Pedal Edema Neurologic/Psychiatric: Alert Skin: Normal Color, Warm/Dry Results Lab Laboratory Tests 09/27/22 14:01: White Blood Count 9.0, Red Blood Count 4.09L, Hemoglobin 12.1L, Hematocrit 36L, Mean Corpuscular Volume 88, Mean Corpuscular Hemoglobin 30, Mean Corpuscular Hemoglobin Concent 34, Red Cell Distribution Width 13.2, Platelet Count 171, Mean Platelet Volume 9.4, Immature Granulocyte % (Auto) 1, Neutrophils (%) (Auto) 72, Lymphocytes (%) (Auto) 17, Monocytes (%) (Auto) 10, Eosinophils (%) (Auto) 0, Basophils (%) (Auto) 0, Neutrophils # (Auto) 6.5, Lymphocytes # (Auto) 1.5, Monocytes # (Auto) 0.9, Eosinophils # (Auto) 0.0, Basophils # (Auto) 0.0, Immature Granulocyte # (Auto) 0.1, Prothrombin Time 15.1H, INR Comment 1.2, Activated Partial Thromboplast Time 33, Sodium Level 134L, Potassium Level 4.7, Chloride Level 101, Carbon Dioxide Level 24, Anion Gap 9, Blood Urea Nitrogen 28H, Creatinine 1.11, Estimat Glomerular Filtration Rate 64, BUN/Creatinine Ratio 25, Glucose Level 185H, Calcium Level 10.2H, Corrected Calcium 10.3H, Total Bilirubin 1.0, Aspartate Amino Transf (AST/SGOT) 18, Alanine Aminotransferase (ALT/SGPT) 15, Alkaline Phosphatase 98, Total Protein 7.4, Albumin 3.9 09/28/22 05:12: White Blood Count 7.1, Red Blood Count 3.46L, Hemoglobin 10.2L, Hematocrit 31L, Mean Corpuscular Volume 88, Mean Corpuscular Hemoglobin 30, Mean Corpuscular Hemoglobin Concent 33, Red Cell Distribution Width 13.2, Platelet Count 143, Mean Platelet Volume 9.8, Immature Granulocyte % (Auto) 1, Neutrophils (%) (Auto) 64, Lymphocytes (%) (Auto) 20, Monocytes (%) (Auto) 12, Eosinophils (%) (Auto) 3, Basophils (%) (Auto) 0, Neutrophils # (Auto) 4.6, Lymphocytes # (Auto) 1.4, Monocytes # (Auto) 0.9, Eosinophils # (Auto) 0.2, Basophils # (Auto) 0.0, Immature Granulocyte # (Auto) 0.0, Sodium Level 134L, Potassium Level 4.2, Chl oride Level 103, Carbon Dioxide Level 22, Anion Gap 9, Blood Urea Nitrogen 25H, Creatinine 0.90, Estimat Glomerular Filtration Rate 83, BUN/Creatinine Ratio 28, Glucose Level 144H, Calcium Level 8.9, Corrected Calcium 9.5, Total Bilirubin 1.0, Aspartate Amino Transf (AST/SGOT) 14, Alanine Aminotransferase (ALT/SGPT) 11, Alkaline Phosphatase 88, Total Protein 6.2L, Albumin 3.3 Assessment/Plan Assessment/Plan Assessment/Plan Hemo-Pneumothorax Multiple rib fractures - Left 7,8,9 Coagulopathy Pulmonary Contusion Patient to continue to use IS. 2 view CXR pending. FREDDYMARCO Monica DO 09/28/22 1048: Subjective Time Seen by a Provider: 09:26 Subjective/Events-last exam Pt seen and examined, he comlained of severe pain. States he doesn't want to move because it hurts. He even refused to go downstairs for 2 view CXR. Review of Systems Pulmonary: No Dyspnea, No Cough; Pleuritic Chest Pain Cardiovascular: No: Chest Pain, Palpitations Gastrointestinal: No: Nausea, Vomiting Musculoskeletal: back pain (with movement) Objective Exam General Appearance: No Apparent Distress (he lays there and appears very comfortable), WD/WN HEENT: PERRL/EOMI Respiratory: Normal Breath Sounds, No Accessory Muscle Use, No Respiratory Distress, Decreased Breath Sounds (left base) Cardiovascular: Regular Rate, Rhythm, No Murmur Gastrointestinal: normal bowel sounds, non tender, soft, no organomegaly Extremity: No Pedal Edema Neurologic/Psychiatric: Alert Skin: Normal Color, Warm/Dry Assessment/Plan Assessment/Plan Assessment/Plan Hemo-Pneumothorax Multiple rib fractures - Left 7,8,9 Coagulopathy Pulmonary Contusion Patient to continue to use IS. I told pt he was going to hurt for "months", broken ribs take time to heal and staying in the hospital won't change anything. I viewed the CXR myself and then went down to talk to Dr. Oconnell about it; he agreed, there does not appear to be increased pleural effusion. Pt is breathing comfortably and saturation normal on room air. I would be willing to allow him to stay one more day; however, if he can't get back to the assisted living center on the weekend then he should go today. Would send him with pain meds and he must move around and US IS 10 times every hour while awake. Supervisory-Addendum Brief Verification & Attestation Participated in pt care: history, MDM, physical Personally performed: exam, history, MDM, supervision of care Care discussed with: Medical Student Procedures: n/a Verification and Attestation of Medical Student E/M Service A medical student performed and documented this service. I then reviewed and verified all information documented by the medical student and made modifications to such information, when appropriate. I personally performed a physical exam, medical decision making and then discussed any differences between the notes and made revisions as necessary to create one note. Marco Hayes , 09/28/22 , 10:48 JONATHAN BLANCA Sep 28, 2022 07:42 MARCO HAYES DO Sep 28, 2022 10:48
[2022-09-28 08:44] VITALS: BP 154/80
--- NOTE | 2022-09-28 10:05 | Diagnostic Imaging Report ---
INDICATION: Rib injury. EXAMINATION: Portable chest at 9:22 AM. FINDINGS: There is a loop recorder projecting over the left lower chest. The patient has had aortic valvuloplasty. The heart size and pulmonary vascularity are normal. There is minimal consolidation at the left lung base. The right lung is clear. There are no effusions or pneumothoraces. IMPRESSION: Minimal left lung base consolidation which could be infiltrate or atelectasis. Dictated by: Dictated on workstation # [id number]
[2022-09-28] MEDS ORDERED: ACHD5005 PO (10:49)
--- NOTE | 2022-09-28 10:51 | Discharge Inst-Surgical ---
Discharge Inst-Surgical Depart Medication/Instructions New, Converted or Re-Newed RX: Transmitted to Pharmacy Patient Instructions Follow up Appt: Make appointment for 1 week. [phone] Instructions: No lifting greater than 20 pounds. No strenuous activity. May shower in 24 hours, no tub bath or soaking. Use incentive spirometer at home as directed. No Smoking Symptoms to Report: Appetite Changes, Extremity Discoloration, Numbness/Tingling, Swelling Increased, Bleeding Excessive, Eyesight Changes, Pain Increased, Urine Color Change, Constipation(Persistent), Fever over 101 degree F, Pain/Pressure in chest, Urinating Difficulty, Cough Up/Vomit Blood, Heart Beat Irreg/Pounding, Pain/Pressure in jaw, Cramps in feet or legs, Lightheadedness, Pain/Pressure in shoulder, Diarrhea(Persistent), Memory Changes Suddenly, Questions/Concerns, Weight gain consecutive days, Dizziness/Fainting, Nausea/Vomiting, Shortness of Breath, Weight gain over 2 pounds If questions or concerns contact your physician Or seek help at emergency department. Diet Discharge Diet: No Restrictions Diet After 24 Hours: Clear Liquid if Nauseous If Any Problems/Questions/Issu: Contact Your Physician Skin/Wound Care Infection Signs and Symptoms: Increased Swelling, Temperature Above 101 F Wound Care Comment: Must move around and use IS, otherwise you will get Pneumonia and get worse. Bathing Instructions: MARCO Chris DO Sep 28, 2022 10:51
[2022-09-28 10:53] VITALS: BP 154/80
[2022-09-28 12:00] VITALS: BP 146/67
[2022-09-28 16:00] VITALS: BP 162/83
== END 2022-09-28 10:48 ==
LOC: EDUNIT# 12:23 → ER 12:24 → 4TH 14:37 → UNDOADMOB 14:37 → 4TH 15:00 → UNDODISOB 09-28 10:48
PROVIDERS: ADMIT Surgery; ATTEND Surgery
DX: J93.83 Other pneumothorax (principal); S22.42XA Multiple fractures of ribs, left side, initial encounter for closed fracture; D68.9 Coagulation defect, unspecified; S27.329A Contusion of lung, unspecified, initial encounter; Z79.01 Long term (current) use of anticoagulants; Z87.891 Personal history of nicotine dependence; W06.XXXA Fall from bed, initial encounter
CPT/HCPCS: 71045; 71250; 72128; 72131; 73030; 73502; 80053 ×2; 85025 ×2; 85610; 85730; 93005; 94640 ×2; 94664 ×2; 99284; G0378; 36415

== ENCOUNTER 2022-10-10 09:59 | Inpatient (IN) | payer MEDICARE, BC ==
[~2022-10-10] VITALS: Ht 180 cm; Wt 90.7 kg
[~2022-10-10 09:59] MED LIST changes: +ACHD5005 PO; +DILT180C85 PO; +INSU100I88 SC; +MELO15TA39 PO; +METH1ADH15 TP; +MULT-1136 PO; +OMEG1CAP58 PO
--- NOTE | 2022-10-10 10:07 | ED General ---
General Stated Complaint: FALL | SOB History of Present Illness Date Seen by Provider: Oct 10, 2022 Time Seen by Provider: 10:07 Initial Comments 87-year-old male brought in by family. Family reports that they were at Dr. Parmar office and noticed he was wheezing. Family reports over the last couple days he just had a low bit more fatigued than normal. Patient does have a history of wheezing but does have a history of pleural effusions. Patient does not use any inhalers. No reports of fevers. Allergies and Home Medications Allergies Coded Allergies: No Known Drug Allergies (Unverified , 06/06/17) Patient Home Medication List Home Medication List Reviewed: Yes Apixaban (Eliquis) 2.5 Mg Tablet, 2.5 MG PO BID, (Reported) Entered as Reported by: GIOVANY VILLELA on 09/27/22 1540 Aspirin (Aspirin EC) 81 Mg Tablet.dr, 81 MG PO DAILY, (Reported) Entered as Reported by: GIOVANY VILLELA on 09/27/22 1540 Atorvastatin Calcium (Atorvastatin Calcium) 20 Mg Tablet, 20 MG PO HS, (Report ed) Entered as Reported by: AGUILA MELLO on 06/06/17 1008 Calcium Carbonate (Calcium) 500 Mg Tablet, 500 MG PO DAILY, (Reported) Entered as Reported by: JUANI RENE on 08/14/21 1118 Carvedilol (Carvedilol) 3.125 Mg Tablet, 3.125 MG PO BID, (Reported) Entered as Reported by: GIOVANY VILLELA on 09/27/22 1540 Cilostazol (Cilostazol) 100 Mg Tablet, 100 MG PO BID, (Reported) Entered as Reported by: AGUILA MELLO on 06/06/17 1008 Diltiazem HCl (Diltiazem 24Hr ER) 180 Mg Cap.er.24h, 180 MG PO DAILY, (Reported) Entered as Reported by: GIOVANY VILLELA on 09/27/22 1540 Hydrocodone/Acetaminophen (Hydrocodone-Acetamin 5-325 mg) 5 Mg-325 Mg Tablet, 1 EA PO Q4H PRN for PAIN-MODERATE (5-7) Prescribed by: MARCO HAYES on 09/28/22 1050 Insulin Detemir (Levemir Flexpen) 100 Unit/Ml (3 Ml) Insuln.pen, 20 UNITS SC 1600 AT EVENING MEAL, (Reported) Entered as Reported by: GIOVANY VILLELA on 09/27/22 154 Loperamide HCl (Imodium A-D) 2 Mg Tablet, 2-4 MG PO UD, (Reported) Entered as Reported by: JUANI RENE on 08/14/21 1119 Meloxicam (Meloxicam) 15 Mg Tablet, 15 MG PO DAILY PRN for PAIN-BREAKTHROUGH, (Reported) Entered as Reported by: GIOVANY VILLELA on 09/27/22 154 Methyl Salicylate/Menthol (Salonpas Patch) 10 %-3 % Adh..patch, 1 EACH TP DAILY, (Reported) Entered as Reported by: GIOVANY VILLELA on 09/27/22 154 Multivitamin (Multivitamin) 1 Each Tablet, 1 EACH PO DAILY, (Reported) Entered as Reported by: GIOVANY VILLELA on 09/27/22 154 Mexia-3 Fatty Acids/Fish Oil (Mexia 3 1,000 mg Softgel) 300 Mg-1,000 Mg Capsule, 1 EACH PO DAILY, (Reported) Entered as Reported by: GIOVANY VILLELA on 09/27/22 154 Ramipril (Ramipril) 5 Mg Capsule, 5 MG PO DAILY, (Reported) Entered as Reported by: GIOVANY VILLELA on 09/27/22 154 Spironolactone (Spironolactone) 25 Mg Tablet, 25 MG PO DAILY, (Reported) Entered as Reported by: NOEL ZARAGOZA on 12/03/17 0738 Review of Systems Review of Systems Constitutional: see HPI Respiratory: cough, short of breath Cardiovascular: no symptoms reported Gastrointestinal: no symptoms reported Genitourinary: no symptoms reported Musculoskeletal: no symptoms reported Skin: no symptoms reported Past Mdywyqr-Kmhcij-Wrrehk Hx Immunizations Up To Date PED Vaccines UTD: Yes Seasonal Allergies Seasonal Allergies: No Past Medical History Surgery/Hospitalization HX: Bilateral Rotator Cuff Repair Right Knee Replacement Right Femoral Fracture plated Broken bilateral legs 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 Heart Cath Surgeries: Yes (rotator cuff bilat, knee replacement, broken legs bilat, melanomo in ear re) Cardiac, Ear Surgery, Orthopedic, Valve Replacement Respiratory: No Currently Using CPAP: No Currently Using BIPAP: No Cardiac: Yes (Heart failure with ischemic cardiomyopathy) Angina, Chronic Edema/Swelling, Coronary Artery Disease, Heart Attack, High Cholesterol, Hypertension, Peripheral Vascular, Valvular Heart Disease Neurological: Yes Dementia, Neuropathy Reproductive Disorders: No Sexually Transmitted Disease: No HIV/AIDS: No Genitourinary: No Gastrointestinal: No Musculoskeletal: Yes Gout Endocrine: Yes Diabetes, Insulin dep HEENT: Yes Cataract Loss of Vision: Denies Hearing Impairment: Hard of Hearing Cancer: Yes Skin, Melanoma Did You Recieve Any Treatments: No Psychosocial: No Sleep Difficulties Integumentary: Yes (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 ) Blood Disorders: No Adverse Reaction/Blood Tranf: No Family Medical History Cancer 09 SISTER, Onset:60 years & older (OVARIAN CANCER) 09 SISTER, Onset:40's - 50 (BREAST CANCER) Chest pain 03 FATHER, Onset:50's - 60 ([place]) Dementia 03 MOTHER, Onset:60 years & older Family history: Alzheimer's disease 03 MOTHER, Onset:60 years & older Family history: Arthritis 03 FATHER, Onset:40's - 50 Family history: Breast disease 09 SISTER, Onset:40's - 50 ( OF BREAST CANCER) Family history: Cardiovascular disease 03 FATHER, Onset:40's - 50 Family history: Hypertension 03 FATHER, Onset:40's - 50 Heart disease 03 FATHER, Onset:40's - 50 Hypercholesterolemia 03 FATHER, Onset:40's - 50 Myocardial infarction 03 FATHER, Onset:40's - 50 Visual impairment 09 SISTER, Onset:40's - 50 No Family History of: Abdominal aortic aneurysm [place]'s disease Alcoholism Aphasia Cancer of colon Cataract Congenital heart disease Congestive heart failure Cystic fibrosis Dysphagia Family history: Allergy Family history: Asthma Family history: Coronary thrombosis Family history: Diabetes mellitus Family history: Gastrointestinal disease Family history: Glaucoma Family history: Osteoporosis Family history: Thyroid disorder Headache Hearing loss Hereditary disease History of - anemia History of - disorder History of - respiratory disease History of drug abuse Human immunodeficiency virus (HIV) seropositivity Infertile Kidney disease Malignant neoplasm of lung Parkinson's disease Prostate cancer Psychotic disorder Seizure disorder Stroke Tuberculosis Heart Disease, Cancer, CAD Under 55 Years Old Physical Exam Vital Signs Vital Signs - First Documented 10/10/22 10:05 Temp 37.3 Pulse 78 Resp 16 B/P (MAP) 107/76 (86) Pulse Ox 93 O2 Delivery Room Air Capillary Refill : Height, Weight, BMI Height: 5'10.00" Weight: 215lbs. 0.0oz. 97.850026jr; 31.00 BMI Method:Stated General Appearance: No Apparent Distress HEENT: Other (Mild dry mucous membrane) Respiratory: Wheezing (Mild diffuse) Cardiovascular: Regular Rate, Rhythm, Other (Bilateral lower extremity 2+ graham a) Gastrointestinal: Non Tender, Soft Extremity: Pedal Edema Neurologic/Psychiatric: Alert, Oriented x3 Focused Exam Lactate Level 10/10/22 10:20: Lactic Acid Level 2.58*H 10/10/22 12:17: Lactic Acid Level 1.59 Lactic Acid Level Laboratory Tests Test 10/10/22 10:20 10/10/22 12:17 Lactic Acid Level 2.58 MMOL/L (0.50-2.00) *H 1.59 MMOL/L (0.50-2.00) Progress/Results/Core Measures Suspected Sepsis SIRS Temperature: Pulse: Respiratory Rate: Laboratory Tests 10/10/22 10:20: White Blood Count 12.4H Blood Pressure / Mean: 10/10/22 10:20: Lactic Acid Level 2.58*H 10/10/22 12:17: Lactic Acid Level 1.59 Laboratory Tests 10/10/22 10:20: Creatinine 1.04, Platelet Count 235, Total Bilirubin 1.3H Results/Orders Lab Results Laboratory Tests Test 10/10/22 10:20 10/10/22 12:17 Range/Units White Blood Count 12.4 H 4.3-11.0 10^3/uL Red Blood Count 3.57 L 4.30-5.52 10^6/uL Hemoglobin 10.4 L 13.3-17.7 g/dL Hematocrit 31 L 40-54 % Mean Corpuscular Volume 87 80-99 fL Mean Corpuscular Hemoglobin 29 25-34 pg Mean Corpuscular Hemoglobin Concent 33 32-36 g/dL Red Cell Distribution Width 14.3 10.0-14.5 % Platelet Count 235 130-400 10^3/uL Mean Platelet Volume 9.4 9.0-12.2 fL Immature Granulocyte % (Auto) 2 % Neutrophils (%) (Auto) 81 H 42-75 % Lymphocytes (%) (Auto) 10 L 12-44 % Monocytes (%) (Auto) 6 0-12 % Eosinophils (%) (Auto) 1 0-10 % Basophils (%) (Auto) 0 0-10 % Neutrophils # (Auto) 10.0 H 1.8-7.8 10^3/uL Lymphocytes # (Auto) 1.2 1.0-4.0 10^3/uL Monocytes # (Auto) 0.8 0.0-1.0 10^3/uL Eosinophils # (Auto) 0.1 0.0-0.3 10^3/uL Basophils # (Auto) 0.0 0.0-0.1 10^3/uL Immature Granulocyte # (Auto) 0.3 H 0.0-0.1 10^3/uL Sodium Level 133 L 135-145 MMOL/L Potassium Level 4.3 3.6-5.0 MMOL/L Chloride Level 104 98-107 MMOL/L Carbon Dioxide Level 19 L 21-32 MMOL/L Anion Gap 10 5-14 MMOL/L Blood Urea Nitrogen 25 H 7-18 MG/DL Creatinine 1.04 0.60-1.30 MG/DL Estimat Glomerular Filtration Rate 69 BUN/Creatinine Ratio 24 Glucose Level 228 H 70-105 MG/DL Lactic Acid Level 2.58 *H 1.59 0.50-2.00 MMOL/L Calcium Level 9.7 8.5-10.1 MG/DL Corrected Calcium 10.5 H 8.5-10.1 MG/DL Total Bilirubin 1.3 H 0.1-1.0 MG/DL Aspartate Amino Transf (AST/SGOT) 59 H 5-34 U/L Alanine Aminotransferase (ALT/SGPT) 67 H 0-55 U/L Alkaline Phosphatase 98 40-136 U/L B-Type Natriuretic Peptide 1734.5 H <100.0 PG/ML Total Protein 6.6 6.4-8.2 GM/DL Albumin 3.0 L 3.2-4.5 GM/DL My Orders Orders - MERINO,BRAULIO L DO Chest 1 View, Ap/Pa Only (10/10/22 10:12) Bnp Shadi (10/10/22 10:12) Cbc With Automated Diff (10/10/22 10:12) Comprehensive Metabolic Panel (10/10/22 10:12) Albuterol/Ipra Inhalation Soln (Duoneb I (10/10/22 10:15) Svn Small Volume Nebulizer (10/10/22 10:12) Blood Culture (10/10/22 11:01) Lactic Acid Analyzer (10/10/22 11:01) Ed Iv/Invasive Line Start (10/10/22 11:22) Ns Iv 500 Ml (Sodium Chloride 0.9%) (10/10/22 11:30) Methylprednisolone Sod Succ (Solu-Medrol (10/10/22 11:32) Albuterol/Ipra Inhalation Soln (Duoneb I (10/10/22 11:45) Svn Small Volume Nebulizer (10/10/22 11:32) Azithromycin Injection (Zithromax Inject (10/10/22 12:09) Ceftriaxone Iv/Im (Rocephin Iv/Im) (10/10/22 12:09) Ns Iv 1000 Ml (Sodium Chloride 0.9%) (10/10/22 12:09) Ed Admission (Communication) (10/10/22 12:38) Medications Given in ED Current Medications Medications Dose Ordered Sig/Gerry Route Start Time Stop Time Status Last Admin Dose Admin Albuterol/ Ipratropium 3 ml ONCE ONCE INH 10/10/22 10:15 10/10/22 10:16 DC 10/10/22 10:28 3 ML Albuterol/ Ipratropium 3 ml ONCE ONCE INH 10/10/22 11:45 10/10/22 11:46 DC 10/10/22 11:50 3 ML Sodium Chloride 500 ml @ 0 mls/hr Q0M ONCE IV 10/10/22 11:30 10/10/22 11:31 DC 10/10/22 11:31 500 MLS/HR Vital Signs/I&O 10/10/22 10/10/22 10/10/22 10:05 10:29 11:51 Temp 37.3 Pulse 78 Resp 16 B/P (MAP) 107/76 (86) Pulse Ox 93 92 92 O2 Delivery Room Air Room Air Room Air Capillary Refill : Progress Note : Progress Note Patient's diagnostic studies were ordered reviewed and interpreted by me. Patient has a mild elevated white count along with some other chronic lab changes. Patient's chest x-ray was ordered reviewed by me. He has no acute significant changes from his previous chest x-ray. Patient did have a significant amount of wheezing that resolved with DuoNeb. Patient blood pressure is mildly soft. This is likely due to his chronic dehydration and age. Patient is afebrile. He likely has a mild bronchitis. We will admit him for observation due to the mild low blood pressure for some gentle IV fluids. Patient has significant congestive heart failure so rapid fluids and large amount of fluids is not indicated and would likely be more detrimental than helpful. Patient given IV Rocephin and azithromycin prior to admission. He was stable upon transfer. Family was requesting patient to be admitted to Dr. Holland, hospitalist. Dr. Holland was agreeable to admission. Diagnostic Imaging Diagonstic Imaging: Xray Plain Films/CT/US/NM/MRI: chest Comments Date of Exam:10/10/22 CHEST 1 VIEW, AP/PA ONLY Indication: Shortness of air. COMPARISON: 09/28/2022 FINDINGS: Single frontal radiograph view the chest was obtained and demonstrates persistent patchy airspace opacities in the left base. Right lung is relatively clear. There is no large effusion on the right. No pneumothorax is seen on either side. Cardiac silhouette and pulmonary vasculature are within normal limits. Osseous structures show no acute abnormalities. IMPRESSION: 1. Persistent patchy left basilar airspace opacities, which may correspond to effusion and associated atelectasis when compared to 09/27/2022. Departure Impression Primary Impression: Bronchitis Disposition: ADMITTED INPATIENT Condition: Stable Admissions Decision to Admit/Date: Oct 10, 2022 Time/Decision to Admit Time: 12:38 Departure-Patient Inst. Referrals: ARIES PARMAR MD (PCP/Family) Primary Care Physician BRAULIO MERINO DO Oct 10, 2022 10:07
[2022-10-10] MEDS ORDERED: RT-ALBUTEROL/IPRATROPIUM 3 ML (DUONEB) VIAL INH ONE ×2 (10:15→11:45)
[2022-10-10 10:39] LABS: BASOPHILS % (AUTO) 0 % (0-10); EOSINOPHILS # (AUTO) 0.1 10^3/uL (0.0-0.3); EOSINOPHILS % (AUTO) 1 % (0-10); HEMATOCRIT 31 % (40-54); HEMOGLOBIN 10.4 g/dL (13.3-17.7); LYMPHOCYTES # (AUTO) 1.2 10^3/uL (1.0-4.0); LYMPHOCYTES % (AUTO) 10 % (12-44); MEAN CORPUSCULAR HEMOGLOBIN 29 pg (25-34); MEAN CORPUSCULAR HGB CONC 33 g/dL (32-36); MEAN CORPUSCULAR VOLUME 87 fL (80-99); MEAN PLATELET VOLUME 9.4 fL (9.0-12.2); MONOCYTES # (AUTO) 0.8 10^3/uL (0.0-1.0); MONOCYTES % (AUTO) 6 % (0-12); NEUTROPHILS % (AUTO) 81 % (42-75); PLATELET COUNT 235 10^3/uL (130-400); WHITE BLOOD COUNT 12.4 10^3/uL (4.3-11.0)
[2022-10-10 10:47] LABS: POTASSIUM 4.3 MMOL/L (3.6-5.0)
[2022-10-10 10:48] LABS: CALCIUM 9.7 MG/DL (8.5-10.1)
[2022-10-10 10:49] LABS: TOTAL PROTEIN 6.6 GM/DL (6.4-8.2)
[2022-10-10 10:51] LABS: BILIRUBIN,TOTAL 1.3 MG/DL (0.1-1.0)
[2022-10-10 10:53] LABS: CREATININE SERUM 1.04 MG/DL (0.60-1.30)
--- NOTE | 2022-10-10 11:00 | Diagnostic Imaging Report ---
Indication: Shortness of air. COMPARISON: 09/28/2022 FINDINGS: Single frontal radiograph view the chest was obtained and demonstrates persistent patchy airspace opacities in the left base. Right lung is relatively clear. There is no large effusion on the right. No pneumothorax is seen on either side. Cardiac silhouette and pulmonary vasculature are within normal limits. Osseous structures show no acute abnormalities. IMPRESSION: 1. Persistent patchy left basilar airspace opacities, which may correspond to effusion and associated atelectasis when compared to 09/27/2022. Dictated by: Dictated on workstation # [id number]
[2022-10-10] MEDS ORDERED: NS IV 500 ML 500 ML IV ONE (11:30)
[2022-10-10] MEDS ORDERED: methylPREDNISolone 125 MG (Solu-MEDROL) VIAL IV STA (11:32)
[2022-10-10] MEDS ORDERED: cefTRIAXone IV/IM 1,000 MG in NS (IVPB) 50 ML IV STA (12:09)
[2022-10-10] MEDS ORDERED: AZITHROMYCIN INJECTION 500 MG in NS (IVPB) 250 ML IV STA (12:09)
[2022-10-10] MEDS ORDERED: NS IV 1000 ML 1,000 ML IV STA (12:09)
--- NOTE | 2022-10-10 13:24 | History & Physical-Hospitalist ---
History of Present Illness HPI/Chief Complaint Patient is an 87-year-old male known to me from previous admissions who presented to the emergency department due to shortness of breath and wheezing. He was here earlier this month after a fall at his assisted living facility where he broke 2 or 3 ribs. He was observed overnight and did well. He had some confusion after going home due to pain medicine but after this was changed he improved drastically. He was doing well up until Saturday of this week (10/08). His daughter reports he has been a little more confused and been coughing with meals. He was seen by GABRIELLE Savage for Dr Parmar this mo rning and was found to be wheezing and sent to the ER. He responded well to a breathing treatment and steroids but was slightly hypotensive and given his heart failure decision was made to admit. His only complaint to me is that he is cold. Source: patient Date Seen 10/10/22 Time Seen by a Provider: 13:19 Attending Physician Carolyn Parmar MD PCP Admitting Physician: Attending Physician: Referring Physician Date of Admission Home Medications & Allergies Home Medications Reviewed patient Home Medication Reconciliation performed by pharmacy medication reconciliations integration technician and/or nursing. Patients Allergies have been reviewed. Allergies Allergies Coded Allergies No Known Drug Allergies (Unverified06/06/17) Past Apozquj-Rhyszx-Hykozh Hx Patient Social History Marrital Status: Employed/Student: retired Tobacco Use?: Yes Smoking Status: Former Smoker Substance use?: No Alcohol Use?: No Immunizations Up To Date Tetanus Booster (TDap): More Than 5 Years Hepatitis A: No Hepatitis B: No PED Vaccines UTD: Yes Seasonal Allergies Seasonal Allergies: No Current Status Primary Language: Sammarinese Preferred Spoken Language: Sammarinese Past Medical History Surgeries: Cardiac, Ear Surgery, Orthopedic, Valve Replacement Currently Using CPAP: No Currently Using BIPAP: No Angina, Chronic Edema/Swelling, Coronary Artery Disease, Heart Attack, High Cholesterol, Hypertension, Peripheral Vascular, Valvular Heart Disease Dementia, Neuropathy Sexually Transmitted Disease: No HIV/AIDS: No Gout Diabetes, Insulin dep Cataract Loss of Vision: Denies Hearing Impairment: Hard of Hearing Skin, Melanoma Did You Recieve Any Treatments: No Sleep Difficulties Blood Disorders: No Adverse Reaction/Blood Tranf: No Family Medical History Reviewed Nursing Family Hx Cancer 09 SISTER, Onset:60 years & older (OVARIAN CANCER) 09 SISTER, Onset:40's - 50 (BREAST CANCER) Chest pain 03 FATHER, Onset:50's - 60 ([place]) Dementia 03 MOTHER, Onset:60 years & older Family history: Alzheimer's disease 03 MOTHER, Onset:60 years & older Family history: Arthritis 03 FATHER, Onset:40's - 50 Family history: Breast disease 09 SISTER, Onset:40's - 50 ( OF BREAST CANCER) Family history: Cardiovascular disease 03 FATHER, Onset:40's - 50 Family history: Hypertension 03 FATHER, Onset:40's - 50 Heart disease 03 FATHER, Onset:40's - 50 Hypercholesterolemia 03 FATHER, Onset:40's - 50 Myocardial infarction 03 FATHER, Onset:40's - 50 Visual impairment 09 SISTER, Onset:40's - 50 No Family History of: Abdominal aortic aneurysm Bronte's disease Alcoholism Aphasia Cancer of colon Cataract Congenital heart disease Congestive heart failure Cystic fibrosis Dysphagia Family history: Allergy Family history: Asthma Family history: Coronary thrombosis Family history: Diabetes mellitus Family history: Gastrointestinal disease Family history: Glaucoma Family history: Osteoporosis Family history: Thyroid disorder Headache Hearing loss Hereditary disease History of - anemia History of - disorder History of - respiratory disease History of drug abuse Human immunodeficiency virus (HIV) seropositivity Infertile Kidney disease Malignant neoplasm of lung Parkinson's disease Prostate cancer Psychotic disorder Seizure disorder Stroke Tuberculosis Heart Disease, Cancer, CAD Under 55 Years Old Review of Systems Constitutional: see HPI Physical Exam Physical Exam Vital Signs Vital Signs - First Documented 10/10/22 10:05 Temp 37.3 Pulse 78 Resp 16 B/P (MAP) 107/76 (86) Pulse Ox 93 O2 Delivery Room Air Capillary Refill : Less Than 3 Seconds Height, Weight, BMI Height: 5'10.00" Weight: 215lbs. 0.0oz. 97.807051ui; 27.00 BMI Method:Stated General Appearance: No Apparent Distress, Chronically ill Respiratory: No Accessory Muscle Use, No Respiratory Distress, Crackles (scant in right base and cleared with second breath, left lung clear); No Rhonci, No Wheezing Cardiovascular: Regular Rate, Rhythm, No Murmur Gastrointestinal: Normal Bowel Sounds, Soft Neurologic/Psychiatric: Alert, Other (oriented to person and place only) Results Results/Procedures Labs Laboratory Tests 10/10/22 10:20 Patient resulted labs reviewed. Imaging: Reviewed Imaging Report Imaging [facility] [place], [place] NAME: PETRONA GARCIA JR [facility] REC#: [id number] PT STATUS: REG ER : 1935 PHYSICIAN: BRAULIO MERINO DO ADMIT DATE: 10/10/22/ER Draft Date of Exam:10/10/22 CHEST 1 VIEW, AP/PA ONLY Indication: Shortness of air. COMPARISON: 09/28/2022 FINDINGS: Single frontal radiograph view the chest was obtained and demonstrates persistent patchy airspace opacities in the left base. Right lung is relatively clear. There is no large effusion on the right. No pneumothorax is seen on either side. Cardiac silhouette and pulmonary vasculature are within normal limits. Osseous structures show no acute abnormalities. IMPRESSION: 1. Persistent patchy left basilar airspace opacities, which may correspond to effusion and associated atelectasis when compared to 09/27/2022. Dictated on workstation # [id number] Dict: 10/10/22 1057 Trans: 10/10/[address] [place] [address] [id number] Interpreted by: YOANA MOORE MD Electronically signed by: Assessment/Plan Admission Diagnosis Bronchitis Admission Status: Observation Assessment and Plan Bronchitis Recent rib fractures Atelectasis noted on CXR Given recent ribs fractures will cover with abx though IS ordered Continue steroids, switch to oral PT/OT/[employer]PER[employer] MAT protocol HTN HLD A-fib NIDDMII Dementia No acute needs, continue home meds as appropriate DVT ppx: On LENNIE Maria MD Oct 10, 2022 13:24
[2022-10-10 14:00] VITALS: BP 108/55
[2022-10-10] MEDS ORDERED: ONDANSETRON 4 MG/2 ML (SDV) Z0FRAN IV PRN (14:15)
[2022-10-10] MEDS ORDERED: MELATONIN 3 MG TABLET PO PRN (14:15)
[2022-10-10] MEDS ORDERED: CALCIUM CARBONATE 500 MG (TUMS) TAB.CHEW PO PRN (14:15)
[2022-10-10] MEDS ORDERED: PATIENT MAY USE OWN MEDS, ALL PO SCH (14:15)
[2022-10-10] MEDS ORDERED: polyethylene glycoL POWDER 17 GM (MIRALAX) PACK PO PRN (14:15)
[2022-10-10] MEDS ORDERED: ACETAMINOPHEN 325 MG TABLET PO PRN (14:15)
[2022-10-10] MEDS: cefTRIAXone IV/IM 1,000 MG in NS (IVPB) 50 ML IV SCH (14:45)
--- NOTE | 2022-10-10 15:21 | ST Dysphagia Evaluation ---
Speech Evaluation-General Medical Diagnosis Bronchitis Onset Date: Oct 10, 2022 Therapy Diagnosis Therapy Diagnosis: Mild Oral Dysphagia Precautions Precautions: Fall, Aspiration Precautions/Isolations: Aspiration, Fall Prevention Referral Referring Physician: Dr. Holland Reason for Referral: Evaluation/Treatment Medical History Pertinent Medical History: CAD, DM, Dementia, Heart Failure, HTN, [place], Neuropa thy, PVD Current History CXR: 10/10/22: 1. Persistent patchy left basilar airspace opacities, which may correspond to effusion and associated atelectasis when compared to 09/27/2022. Reviewed History: Yes Speech PLF/Current-Dysphagia Prior Level of Function The patient was unable to provide prior medical history due to a baseline diagnosis of dementia. The patient has several family members present, who provided an accurate baseline to the clinician. Per daughter, Angie, the patient consumes a regular consistency diet with thin liquids. The patient does not d isplay s/s of suspected aspiration however has experienced a reduction in his appetite since his recent fall. The patient also has dentures in place which she feels do not fit as well as of recently. The patient's additional daughter stated the patient is able to consume pills whole with thin liquid and may experience "some coughing every now and then with food." Subjective The patient was seated upright in bed, awake and alert, upon entrance to the patient's room by the clinician. The patient greeted the clinician appropriately and was agreeable to participation in the clinical bedside swallowing evaluation. The patient's lunch tray was present with a cheeseburger, mashed potatoes and gravy, grapes, hot chocolate, and water via straw. Cognitive Status Patient Orientation: Confused Oral Motor Skills Dentition: Edentalous (Dentures present.) Denture Type: Full- Upper & Lower Current Food Consistancy: Regular, Thin Liquids Ability to Follow Directions: Fair Oral Expression Ability: Moderate Impairment Voice Voice Phonatory-Based Quality: Normal Voice Pitch: Normal Voice Loudness: Normal Face Facial Symmetry: Symmetrical Oral-Facial Assessment Oral-Facial Dentition: Normal Labial Seal Description: Normal Smile: Normal Lingual ROM: Normal Dysphagia Evaluation Consistencies Presented: Regular (Cheeseburger.), Thin Liquid (Hot chocolate via cup edge, water via straw (single and multiple).), Pureed (Mashed potatoes with gravy.) Oral Phase: Reduced Oral Transit The patient was able to accept food and liquid from a straw and teaspoon. The patient self-fed grapes but required aid with eating hamburger (cut up by son-in-law) and finding items with his fork. Prolonged mastication was demonstrated with solid consistencies (hamburger bun) and prolonged bolus formation. A thin liquid bolus was required to aid in posterior bolus transfer, complete bolus formation, and clearance of bolus material from the oral cavity. Complete clearance was achieved with the thin liquid material. Laryngeal elevation was observed upon the swallow. A timely pharyngeal swallow was suspected. The patient consumed thin liquid via single straw drink, multiple straw drink and side of cup. Additionally, the patient consumed mashed potatoes and gravy, bites of a cheeseburger, and grapes. Overt s/s of suspected aspiration were not demonstrated with any trials of P.O. intake. Dietary Recommendations: Regular Liquid Recommendations: Thin Recommendations: - Regular consistency diet with thin liquids, as tolerated. - Fully upright and alert for P.O. intake. - Small, single bites and sips. - Alternate bites and sips on a 1:1 ratio. - Aid with meal set-up, as needed. - Monitor for s/s of suspected aspiration with P.O. intake. If demonstrated, please contact speech pathology. - Speech pathology to monitor the patient's diet tolerance throughout his acute hospitalization. The results and recommendations were provided to the RN, the patient and the family members. Additionally, occupational therapy completed her skilled evaluation and stated the patient did not display s/s of suspected aspiration with continued P.O. intake of lunch. Speech Short Term Goals Short Term Goals Short Term Goals 1. The patient, staff, and family members will display safe swallowing precautions with 80% accuracy, independently. Speech Group Home Goals [employer] Safety Engineer Goals 1. The patient will tolerate the least restrictive diet consistency without s/s of suspected aspiration. Time Frame: One Week. Speech-Plan Treatment Plan Speech Therapy Treatment Plan: Continue Plan of Care Treatment Duration: Oct 12, 2022 Frequency: 3 times per week Estimated Hrs Per Day: .25 hour per day Rehab Potential: Fair Pt/Family Agrees to Plan: Yes Safety Risks/Education Teaching Recipient: Patient, Family Teaching Methods: Discussion Response to Teaching: Reinforcement Needed Education Topics Provided: Results, Recommendations, Plan of Care, Safe Swallowing Precautions, Swallowing Strategies (Alternate bites/sips 1:1, Small bites and sips, Extra sauces/gravies) Time Speech Therapy Time In: 14:45 Speech Therapy Time Out: 15:05 DATE: Oct 10, 2022 Total Billed Time: 20 Billed Treatment Time 1, ROSA SHELDON ELIZABETH ST Oct 10, 2022 15:21
--- NOTE | 2022-10-10 15:56 | Physical Therapy Evaluation ---
PT Evaluation-General Medical Diagnosis Admission Date Oct 10, 2022 at 13:45 Medical Diagnosis: Bronchitis Onset Date: Oct 10, 2022 Therapy Diagnosis Therapy Diagnosis: Gait deficit, strength deficit Height/Weight Height (Feet): 5 Height (Inches): 10.00 Weight (Pounds): 215 Weight (Ounces): 0.0 Precautions Precautions/Isolations: Aspiration, Fall Prevention Weight Bear Status Right Lower Extremity: Right Full Weight Bearing Left Lower Extremity: Left Full Weight Bearing Referral Physician: Dr. Holland Reason for Referral: Evaluation/Treatment Medical History Pertinent Medical History: CAD, DM, Dementia, Heart Failure, HTN, CT, Neuropathy, PVD Reviewed History: Yes Social History Home: Assisted Living Current Living Status: Alone Entry Into Home: Level Entry Prior Prior Level of Function SCALE: Activities may be completed with or without assistive devices. 4-Uimrpuyrkv-jftbhem completes the activity by him/herself with no assistance from a helper. 5-Set-up or Clean-up Assistance-helper sets up or cleans up; patient completes activity. [place] assists only prior to or following the activity. 4-Supervision or Touching Assistance-helper provides verbal cues and/or touching/steadying and/or contact guard assistance as patient completes activity. Assistance may be provided throughout the activity or intermittently. 3-Partial/Moderate Assistance-helper does LESS THAN HALF the effort. [place] lifts, holds or supports trunk or limbs, but provides less than half the effort. 2-Substantial/Maximal Assistance-helper does MORE THAN HALF the effort. [place] lifts or holds trunk or limbs and provides more than half the effort. 5-Amakhuhct-vehjrb does ALL the effort. Patient does none of the effort to complete the activity. Or, the assistance of 2 or more helpers is required for the patient to complete the activity. If activity was not attempted, code reason: 7-Patient Refused. 9-Not Applicable-not attempted and the patient did not perform the activity before the current illness, exacerbation or injury. 10-Not Attempted due to Environmental Limitations-(lack of equipment, weather restraints, etc.). 88-Not Attempted due to Medical Conditions or Safety Concerns. Bed Mobility: 6 Transfers (B,C,W/C): 6 Gait: 6 Indoor Mobility (Ambulation): Independent Stairs: Not Applicalbe Prior Devices Use: Walker PT Evaluation-Current Subjective Patient lying supine in bed upon PT arrival, family in the room, patient no happy but agreeable to treatment. Patient rates pain at 0/10. Objective Patient Orientation: Person, Place Attachments: IV ROM/Strength ROM Lower Extremities WFLs BLEs all planes. Strength Lower Extremities 3+/5 BLEs all planes Sensory Vision: Functional Hearing: Impaired Sensation Right Lower Extremit: Intact Sensation Left Lower Extremity: Intact Transfers Roll Left to Right (QC): 3 Sit to Lying (QC): 3 Lying to Sitting/Side of Bed(Q: 3 Sit to Stand (QC): 3 Gait Does the Patient Walk?: No and Walking Goal IS indicated Mode of Locomotion: Walk Anticipated Mode of Locomotion: Walk Balance Sitting Static: Fair Sitting Dynamic: Fair Standing Static: Poor Standing Dynamic: Poor Assessment/Needs Patient resistive to treatment but participates. Performs all bed mobility and transfers with min A. Patient stands with min a and initiates ambulation. Patient takes one step and has a forceful incontinent BM all over the bed. Patient was immediately sat down and cleaned the best possible. STRIP CUTTER was contacted and went to get supplies to clean patient. Patient in bed post treatment with all needs met, family in room, call light in reach and STRIP CUTTER in room. Rehab Potential: Fair PT Chcf Goals Chcf Goals PT Aeronautical Engineering Officer Goals Time Frame: Oct 26, 2022 Roll Left & Right (QC): 6 Sit to Lying (QC): 6 Lying-Sitting on Side/Bed(QC): 6 Sit to Stand (QC): 6 Chair/Rsu-nl-Uaizj Xfer(QC): 4 Toilet Transfer (QC): 4 Does the Patient Walk: Yes Walk 10 feet (QC): 6 Walk 50ft with 2 Turns (QC): 4 Walk 150 ft (QC): 4 PT Plan Problem List Problem List: Activity Tolerance, Functional Strength, Safety, Balance, Gait, Transfer, Bed Mobility, ROM Treatment/Plan Treatment Plan: Continue Plan of Care Treatment Plan: Bed Mobility, Education, Functional Activity Romy, Functional Strength, Group Therapy, Gait, Safety, Therapeutic Exercise, Transfers Treatment Duration: Nov 03, 2022 Frequency: 6 times per week Estimated Hrs Per Day: .25 hour per day Patient and/or Family Agrees t: Yes Safety Risks/Education Patient Education: Gait Training, Transfer Techniques Teaching Recipient: Patient, Family Teaching Methods: Demonstration, Discussion Response to Teaching: Verbalize Understanding, Return Demonstration Time Time In: 1529 Time Out: 1547 DATE: Oct 10, 2022 Total Billed Treatment Time: 18 Total Billed Treatment Visit, RAFAEL NAIDU PT Oct 10, 2022 15:56
[2022-10-10] MEDS ORDERED: ACET-2267 PO (15:58)
[2022-10-10] MEDS ORDERED: inSUlin ASPART (NovoLOG) 1 UNIT/0.01 ML (CHARGE PER UNIT) SC SCH (16:00)
[2022-10-10 16:04] VITALS: BP 108/55
--- NOTE | 2022-10-10 16:11 | Occupational Therapy Eval ---
OT Evaluation-General/PLF Medical Diagnosis Admission Date Oct 10, 2022 at 13:45 Medical Diagnosis: Bronchitis Onset Date: Oct 10, 2022 Therapy Diagnosis Therapy Diagnosis: weakness Height/Weight Height (Feet): 5 Height (Inches): 10.00 Weight (Pounds): 215 Weight (Ounces): 0.0 Precautions Precautions/Isolations: Aspiration, Fall Prevention Safety Interventions: Bed Exit Alarm Referral Physician: Dr. Holland Referral Reason: Evaluation/Treatment Medical History Pertinent Medical History: CAD, DM, Dementia, Heart Failure, HTN, [place], Neuropathy, PVD Additional Medical History 87-year-old male brought in by family. Family reports that they were at Dr. Parmar office and noticed he was wheezing. Family reports over the last couple days he just had a low bit more fatigued than normal. Patient does have a history of wheezing but does have a history of pleural effusions. Patient does not use any inhalers. H/O recent fall, rib fx Social History Home: Assisted Living Current Living Status: Alone Entry Into Home: Level Entry ADL-Prior Level of Function SCALE: Activities may be completed with or without assistive devices. 8-Fvsgfusfxk-uibryyv completes the activity by him/herself with no assistance from a helper. 5-Set-up or Clean-up Assistance-helper sets up or cleans up; patient completes activity. [place] assists only prior to or following the activity. 4-Supervision or Touching Assistance-helper provides verbal cues and/or touching/steadying and/or contact guard assistance as patient completes activity. Assistance may be provided throughout the activity or intermittently. 3-Partial/Moderate Assistance-helper does LESS THAN HALF the effort. [place] lifts, holds or supports trunk or limbs, but provides less than half the effort. 2-Substantial/Maximal Assistance-helper does MORE THAN HALF the effort. [place] lifts or holds trunk or limbs and provides more than half the effort. 0-Hplrzzbaz-etozio does ALL the effort. Patient does none of the effort to complete the activity. Or, the assistance of 2 or more helpers is required for the patient to complete the activity. If activity was not attempted, code reason: 7-Patient Refused. 9-Not Applicable-not attempted and the patient did not perform the activity before the current illness, exacerbation or injury. 10-Not Attempted due to Environmental Limitations-(lack of equipment, weather restraints, etc.). 88-Not Attempted due to Medical Conditions or Safety Concerns. Self Care: Needed Some Help Functional Cognition: Needed Some Help DME/Equipment Comments WC, walker Drive Self: No OT Current Status Subjective Family in room, patien its agreeable to OT intervention Pain Comment: some facial grimaces and mild cursing w/ mobility Mental Status/Objective Patient Orientation: Person periodically mixes family names of member during OT evaluation Attachments: IV Current Dentures/Partials: Yes Upper Extremity ROM Observed w/ reaching for food/beverage Upper Extremity Strength WFLs ADL-Treatment Eating (QC): 5 (requires intermittent assistance) Oral Hygiene (QC): 4 Shower/Bathe Self (QC): 88 Upper Body Dressing (QC): 3 Lower Body Dressing (QC): 2 On/Off Footwear (QC): 1 Toileting Hygiene (QC): 1 Other Treatments standing and side stepping EOB w/ OT Education OT Patient Education: Correct positioning, Instructions to caregiver, Modified ADL techniques, Progress toward Goal/Update tx plan, Purpose of tx/functional activities, Reviewed precautions, Rehab process, Safety issues, Transfer techniques Teaching Recipient: Patient, Family Teaching Methods: Demonstration, Discussion Response to Teaching: Reinforcement Needed OT Mcc Goals Elevator Dispatcher Goals Eating (QC): 5 Oral Hygiene (QC): 5 Toileting Hygiene (QC): 4 Shower/Bathe Self (QC): 3 Upper Body Dressing (QC): 4 Lower Body Dressing (QC): 4 On/Off Footwear (QC): 4 1=Demonstrate adherence to instructed precautions during ADL tasks. 2=Patient will verbalize/demonstrate understanding of assistive devices/modifications for ADL. 3=Patient will improve strength/tolerance for activity to enable patient to perform ADL's. OT Education/Plan Problem List/Assessment Assessment: Decreased Activ Tolerance, Decreased Safety Aware, Impaired Cognition, Impaired Coordination, Impaired Funct Balance, Impaired Self-Care Skills Discharge Recommendations Plan/Recommendations: Continue POC Therapy Discharge Recommendati: Post Acute OT Treatment Plan/Plan of Care Treatment,Training & Education: Yes Patient would benefit from OT for education, treatment and training to promote independence in ADL's, mobility, safety and/or upper extremity function for ADL's. Plan of Care: ADL Retraining, Caregiver Training, Concurrent Therapy, Functional Mobility, Group Exercise/Act as Ind, UE Funct Exercise/Act Treatment Duration: Oct 10, 2022 Frequency: 3 times per week (3-5 times per week) Estimated Hrs Per Day: .25 hour per day Agreement: Yes Rehab Potential: Fair Time Start Time: 15:05 Stop Time: 15:25 DATE: Oct 10, 2022 Total Time Billed (hr/min): 20 Billed Treatment Time EVM 20 MARIE WEAVER OT Oct 10, 2022 16:11
[2022-10-10] MEDS ORDERED: RT-ALBUTEROL/IPRATROPIUM 3 ML (DUONEB) VIAL INH PRN (16:15)
[2022-10-10 16:18] VITALS: BP 100/53
[2022-10-10] MEDS ORDERED: ACETAMINOPHEN 500 MG TAB (TYLENOL) PO PRN (19:30)
[2022-10-10] MEDS ORDERED: LOPERAMIDE 2 MG (IMODIUM) TABLET PO PRN (19:30)
[2022-10-10 19:35] VITALS: BP 102/57
[2022-10-10] MEDS: RT-ALBUTEROL/IPRATROPIUM 3 ML (DUONEB) VIAL INH SCH (20:29)
[2022-10-10] MEDS: HYDROcodone/APAP 5 MG/325 MG (LORTAB) TAB PO PRN (20:31)
[2022-10-10] MEDS: APIXABAN 2.5 MG (ELIQUIS) TABLET PO SCH (20:32)
[2022-10-10] MEDS: inSUlin ASPART (NovoLOG) 1 UNIT/0.01 ML (CHARGE PER UNIT) SC SCH (20:32)
[2022-10-10] MEDS ORDERED: NON-FORMULARY MEDICATION 1 EA EA (Cilostazol 100 MG) PO SCH (21:00)
[2022-10-10 23:40] VITALS: BP 123/68
[2022-10-11] VITALS (7 sets, daily range): BP systolic 119–139; BP diastolic 63–85
[2022-10-11] MEDS: RT-ALBUTEROL/IPRATROPIUM 3 ML (DUONEB) VIAL INH SCH ×4 (03:34→21:32)
[2022-10-11 05:32] LABS: HEMATOCRIT 29 % (40-54); HEMOGLOBIN 9.7 g/dL (13.3-17.7); MEAN CORPUSCULAR HEMOGLOBIN 29 pg (25-34); MEAN CORPUSCULAR HGB CONC 33 g/dL (32-36); MEAN CORPUSCULAR VOLUME 88 fL (80-99); MEAN PLATELET VOLUME 9.5 fL (9.0-12.2); PLATELET COUNT 215 10^3/uL (130-400)
[2022-10-11 05:41] LABS: POTASSIUM 4.5 MMOL/L (3.6-5.0)
[2022-10-11 05:42] LABS: CALCIUM 9.3 MG/DL (8.5-10.1)
[2022-10-11 05:47] LABS: CREATININE SERUM 0.86 MG/DL (0.60-1.30)
[2022-10-11] MEDS: inSUlin ASPART (NovoLOG) 1 UNIT/0.01 ML (CHARGE PER UNIT) SC SCH ×4 (05:54→20:34)
[2022-10-11] MEDS: predniSONE 20 MG TAB PO SCH (05:55)
[2022-10-11] MEDS: APIXABAN 2.5 MG (ELIQUIS) TABLET PO SCH ×2 (08:39→20:33)
[2022-10-11] MEDS: CALCIUM CARBONATE 600 MG (CALCARB) TAB PO SCH (08:39)
[2022-10-11] MEDS: ASPIRIN E.C. 81 MG (ECOTRIN) TAB PO SCH (08:39)
[2022-10-11] MEDS: AZITHROMYCIN 250 MG TAB (ZITHROMAX) PO SCH (08:39)
[2022-10-11] MEDS ORDERED: NON-FORMULARY MEDICATION 1 EA EA (Methyl Salicylate/Menthol (Salonpas Patch) 1 EACH) TP SCH (09:00)
[2022-10-11] MEDS ORDERED: NON-FORMULARY MEDICATION 1 EA EA (Calcium Carbonate (Calcium) 500 MG) PO SCH (09:00)
--- NOTE | 2022-10-11 10:08 | Speech Therapy Daily Note ---
Speech Daily Progress Note Subjective Date Seen by Provider: Oct 11, 2022 Time Seen by Provider: 09:07 The patient was lying in bed, awake and alert, upon entrance to his room by the clinician. The patient greeted the clinician appropriately and was agreeable to participation in the skilled dysphagia treatment session. The head of bed was elevated for safe swallowing position. Objective The patient politely deferred food trials stating, "I just got done eating, I can't do that right now." The patient was agreeable to trials of thin liquid via straw. The patient consumed multiple thin liquid trials and did not display s/s of suspected aspiration. The clinician discussed s/s of suspected aspiration with the patient, as well as, safe swallowing precautions including alternating bites and sips on a 1:1 ratio and consuming small bites and sips. Safe swallowing precautions were written on the board. At this time, the patient appears to be tolerating his current diet consistency. ST recommends to continue with the current ST plan of care. ST to sign off of skilled services at this time. Please re-consult ST with any additional concerns. Thank you for the consultation. Assessment Assessment Current Status: Good Progress Treatment Plan Continue Plan of Care Speech Short Term Goals Short Term Goals Short Term Goals 1. The patient, staff, and family members will display safe swallowing precautions with 80% accuracy, independently. Speech Chcf Goals Chcf Goals 1. The patient will tolerate the least restrictive diet consistency without s/s of suspected aspiration. Time Frame: One Week. Speech-Plan Treatment Plan Speech Therapy Treatment Plan: Continue Plan of Care Treatment Duration: Oct 12, 2022 Frequency: 3 times per week Estimated Hrs Per Day: .25 hour per day Rehab Potential: Fair Safety Risks/Education Teaching Recipient: Patient Teaching Methods: Discussion Response to Teaching: Reinforcement Needed Education Topics Provided: Safe Swallowing Precautions, Plan of Care Time Speech Therapy Time In: 09:07 Speech Therapy Time Out: 09:17 DATE: Oct 11, 2022 Total Billed Time: 10 Billed Treatment Time 1ROSA ELIZABETH ST Oct 11, 2022 10:08
--- NOTE | 2022-10-11 11:17 | Physical Therapy Daily Note ---
PT Daily Note-Current Subjective Patient is very argumentative and refused to attempt to ambulate. Patient required much encouragement to transfer to recliner. Pain Section J - Health Conditions 1. Rarely or not at all 2. Occasionally 3. Frequently 4. Almost constantly 8. Unable to answer Pain Effect on Sleep: 8 Pain Interference with Therapy: 8 Pain Interference w/Day-to-Day: 8 Mental Status Patient Orientation: Confused Transfers SCALE: Activities may be completed with or without assistive devices. 4-Omxrzfyrcb-kypuckf completes the activity by him/herself with no assistance from a helper. 5-Set-up or Clean-up Assistance-helper sets up or cleans up; patient completes activity. [place] assists only prior to or following the activity. 4-Supervision or Touching Assistance-helper provides verbal cues and/or touching/steadying and/or contact guard assistance as patient completes activity. Assistance may be provided throughout the activity or intermittently. 3-Partial/Moderate Assistance-helper does LESS THAN HALF the effort. [place] lifts, holds or supports trunk or limbs, but provides less than half the effort. 2-Substantial/Maximal Assistance-helper does MORE THAN HALF the effort. [place] l ifts or holds trunk or limbs and provides more than half the effort. 6-Dbnjxdyxg-zjrvbo does ALL the effort. Patient does none of the effort to complete the activity. Or, the assistance of 2 or more helpers is required for the patient to complete the activity. If activity was not attempted, code reason: 7-Patient Refused. 9-Not Applicable-not attempted and the patient did not perform the activity before the current illness, exacerbation or injury. 10-Not Attempted due to Environmental Limitations-(lack of equipment, weather restraints, etc.). 88-Not Attempted due to Medical Conditions or Safety Concerns. Lying to Sitting/Side of Bed(Q: 3 Sit to Stand (QC): 3 Chair/Yga-wk-Nbaju Xfer(QC): 3 Weight Bearing Right Lower Extremity: Right Full Weight Bearing Left Lower Extremity: Left Full Weight Bearing Gait Training Distance: 5 steps Gait Assistive Device: FWW mod assist to remain upright Assessment Patient up in recliner with chair alarm activated. Patient refused to attempt to ambulate on this date. PT to increase activity as tolerated by patient. PT Retirement Goals Retirement Goals PT Retirement Goals Time Frame: Oct 26, 2022 Roll Left & Right (QC): 6 Sit to Lying (QC): 6 Lying-Sitting on Side/Bed(QC): 6 Sit to Stand (QC): 6 Chair/Vwz-rd-Jxtyc Xfer(QC): 4 Toilet Transfer (QC): 4 Does the Patient Walk: Yes Walk 10 feet (QC): 6 Walk 50ft with 2 Turns (QC): 4 Walk 150 ft (QC): 4 PT Plan Treatment/Plan Treatment Plan: Continue Plan of Care Treatment Plan: Bed Mobility, Education, Functional Activity Romy, Functional Strength, Group Therapy, Gait, Safety, Therapeutic Exercise, Transfers Treatment Duration: Nov 03, 2022 Frequency: 6 times per week Estimated Hrs Per Day: .25 hour per day Patient and/or Family Agrees t: Yes Time Time In: 950 Time Out: 1000 DATE: Oct 11, 2022 Total Billed Treatment Time: 10 Total Billed Treatment 1 visit FA 10 min OSCAR SR PT Oct 11, 2022 11:17
--- NOTE | 2022-10-11 12:49 | Occupational Ther Daily Note ---
OT Current Status-Daily Note Subjective Patient presents w/ cantankerous comments, intermittently commits to therapy today Mental Status/Objective Patient Orientation: Person, Place ADL-Treatment wearing Velcro tab brief, refuses to change or toilet with therapy, agrees to transfer to chair to allow line change. No c/o pain to ribs during session. Therapy Code Descriptions/Definitions Functional [place] Measure: 0=Not Assessed/NA 4=Minimal Assistance 1=Total Assistance 5=Supervision or Setup 2=Maximal Assistance 6=Modified [place] 3=Moderate Assistance 7=Complete IndependenceSCALE: Activities may be completed with or without assistive devices. 3-Mtahomxzai-sygnrnc completes the activity by him/herself with no assistance from a helper. 5-Set-up or Clean-up Assistance-helper sets up or cleans up; patient completes a ctivity. [place] assists only prior to or following the activity. 4-Supervision or Touching Assistance-helper provides verbal cues and/or touching/steadying and/or contact guard assistance as patient completes activity. Assistance may be provided throughout the activity or intermittently. 3-Partial/Moderate Assistance-helper does LESS THAN HALF the effort. [place] lifts, holds or supports trunk or limbs, but provides less than half the effort. 2-Substantial/Maximal Assistance-helper does MORE THAN HALF the effort. [place] lifts or holds trunk or limbs and provides more than half the effort. 8-Tsaapjxon-ucxcew does ALL the effort. Patient does none of the effort to complete the activity. Or, the assistance of 2 or more helpers is required for the patient to complete the activity. If activity was not attempted, code reason: 7-Patient Refused. 9-Not Applicable-not attempted and the patient did not perform the activity before the current illness, exacerbation or injury. 10-Not Attempted due to Environmental Limitations-(lack of equipment, weather restraints, etc.). 88-Not Attempted due to Medical Conditions or Safety Concerns. Eating (QC): 5 Oral Hygiene (QC): 4 Shower/Bathe Self (QC): 7 Upper Body Dressing (QC): 7 Lower Body Dressing (QC): 7 On/Off Footwear: 7 Toileting Hygiene (QC): 7 Toilet Transfer (QC): 7 Education OT Patient Education: Correct positioning, Modified ADL techniques, Progress toward Goal/Update tx plan, Purpose of tx/functional activities, Reviewed precautions, Rehab process, Safety issues, Transfer techniques Teaching Recipient: Patient Response to Teaching: Reinforcement Needed OT Radio Electronics Officer Goals Radio Electronics Officer Goals Eating (QC): 5 Oral Hygiene (QC): 5 Toileting Hygiene (QC): 4 Shower/Bathe Self (QC): 3 Upper Body Dressing (QC): 4 Lower Body Dressing (QC): 4 On/Off Footwear (QC): 4 1=Demonstrate adherence to instructed precautions during ADL tasks. 2=Patient will verbalize/demonstrate understanding of assistive devices/modifications for ADL. 3=Patient will improve strength/tolerance for activity to enable patient to perform ADL's. OT Education/Plan Discharge Recommendations Plan/Recommendations: Continue POC Treatment Plan/Plan of Care Patient would benefit from OT for education, treatment and training to promote independence in ADL's, mobility, safety and/or upper extremity function for ADL's. Plan of Care: ADL Retraining, Caregiver Training, Concurrent Therapy, Functional Mobility, Group Exercise/Act as Ind, UE Funct Exercise/Act Treatment Duration: Oct 10, 2022 Frequency: 3 times per week (3-5 times per week) Estimated Hrs Per Day: .25 hour per day Agreement: Yes Rehab Potential: Fair Chair alarm set, all needs met Time Start Time: 09:50 Stop Time: 10:00 DATE: Oct 11, 2022 Total Time Billed (hr/min): 10 Billed Treatment Time ADL 10 min MARIE WEAVER OT Oct 11, 2022 12:49
--- NOTE | 2022-10-11 13:55 | Progress Note - Hospitalist ---
Subjective HPI/CC On Admission Date Seen by Provider: Oct 11, 2022 Patient is an 87-year-old male known to me from previous admissions who presented to the emergency department due to shortness of breath and wheezing. He was here earlier this month after a fall at his assisted living facility where he broke 2 or 3 ribs. He was observed overnight and did well. He had some confusion after going home due to pain medicine but after this was c hanged he improved drastically. He was doing well up until Saturday of this week (10/08). His daughter reports he has been a little more confused and been coughing with meals. He was seen by GABRIELLE Savage for Dr Parmar this morning and was found to be wheezing and sent to the ER. He responded well to a breathing treatment and steroids but was slightly hypotensive and given his heart failure decision was made to admit. His only complaint to me is that he is cold. Subjective/Events-last exam Pt reports feeling better today. No complaints. No family at bedside yet but I did speak to his daughter later in the cafeteria. Updated on blood culture findings. Focused Exam Lactate Level 10/10/22 10:20: Lactic Acid Level 2.58*H 10/10/22 12:17: Lactic Acid Level 1.59 Objective Exam Vital Signs Vital Signs Date Time Temp Pulse Resp B/P (MAP) Pulse Ox O2 Delivery O2 Flow Rate FiO2 10/11/22 11:47 36.4 68 20 139/63 (88) 92 Room Air Capillary Refill : Less Than 3 Seconds General Appearance: No Apparent Distress, Chronically ill Respiratory: Lungs Clear, No Respiratory Distress Cardiovascular: Regular Rate, Rhythm, No Murmur Gastrointestinal: Normal Bowel Sounds, Soft Neurologic/Psychiatric: Alert, Other (oriented to person and place) Results/Procedures Lab Laboratory Tests 10/11/22 05:23 Patient resulted labs reviewed. 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
[2022-10-11] MEDS: cefTRIAXone IV/IM 1,000 MG in NS (IVPB) 50 ML IV SCH (14:54)
[2022-10-11 16:04] LABS: BILIRUBIN,URINE NEGATIVE (NEGATIVE); CLARITY,URINE SL CLOUDY; COLOR,URINE YELLOW; GLUCOSE, URINE (UA) 2+ (NEGATIVE); KETONES,URINE NEGATIVE (NEGATIVE); LEUKOCYTE ESTERASE ,URINE 2+ (NEGATIVE); NITRITE,URINE POSITIVE (NEGATIVE); PROTEIN,URINE NEGATIVE (NEGATIVE)
[2022-10-11 16:16] LABS: BACTERIA,URINE LARGE /HPF; WBC,URINE 50-100 /HPF
[2022-10-11] MEDS ORDERED: RT-ALBUTEROL/IPRATROPIUM 3 ML (DUONEB) VIAL INH PRN (21:45)
[2022-10-12 03:45] VITALS: BP 149/79
[2022-10-12] MEDS: inSUlin ASPART (NovoLOG) 1 UNIT/0.01 ML (CHARGE PER UNIT) SC SCH ×4 (05:24→21:05)
[2022-10-12 05:36] LABS: HEMATOCRIT 33 % (40-54); MEAN CORPUSCULAR HEMOGLOBIN 29 pg (25-34); MEAN CORPUSCULAR HGB CONC 34 g/dL (32-36); MEAN CORPUSCULAR VOLUME 88 fL (80-99); MEAN PLATELET VOLUME 9.5 fL (9.0-12.2); PLATELET COUNT 281 10^3/uL (130-400); WHITE BLOOD COUNT 12.4 10^3/uL (4.3-11.0)
[2022-10-12 06:07] LABS: POTASSIUM 5.2 MMOL/L (3.6-5.0)
[2022-10-12 06:08] LABS: CALCIUM 10.1 MG/DL (8.5-10.1)
[2022-10-12 06:13] LABS: CREATININE SERUM 0.81 MG/DL (0.60-1.30)
[2022-10-12] MEDS: predniSONE 20 MG TAB PO SCH (06:16)
--- NOTE | 2022-10-12 07:58 | Progress Note - Hospitalist ---
Subjective HPI/CC On Admission Date Seen by Provider: Oct 12, 2022 Patient is an 87-year-old male known to me from previous admissions who presented to the emergency department due to shortness of breath and wheezing. He was here earlier this month after a fall at his assisted living facility where he broke 2 or 3 ribs. He was observed overnight and did well. He had some confusion after going home due to pain medicine but after this was c hanged he improved drastically. He was doing well up until Saturday of this week (10/08). His daughter reports he has been a little more confused and been coughing with meals. He was seen by GABRIELLE Savage for Dr Parmar this morning and was found to be wheezing and sent to the ER. He responded well to a breathing treatment and steroids but was slightly hypotensive and given his heart failure decision was made to admit. His only complaint to me is that he is cold. Subjective/Events-last exam Pt reports doing ok. No specific complaints. States he is still sleepy this mo rning (around 0730 when I rounded) but otherwise no issues. Focused Exam Lactate Level 10/10/22 10:20: Lactic Acid Level 2.58*H 10/10/22 12:17: Lactic Acid Level 1.59 Objective Exam Vital Signs Vital Signs Date Time Temp Pulse Resp B/P (MAP) Pulse Ox O2 Delivery O2 Flow Rate FiO2 10/12/22 03:45 36.5 78 20 149/79 (102) 96 Room Air 10/11/22 21:35 21 Capillary Refill : Less Than 3 Seconds General Appearance: No Apparent Distress, Chronically ill Respiratory: Lungs Clear, No Accessory Muscle Use Cardiovascular: Regular Rate, Rhythm, No Murmur Gastrointestinal: Normal Bowel Sounds, Soft Neurologic/Psychiatric: Alert, Oriented x3 (to major details (name, place)) Results/Procedures Lab Laboratory Tests 10/12/22 05:20 Patient resulted labs reviewed. Imaging: Reviewed Imaging Report Assessment/Plan Assessment and Plan Assess & Plan/Chief Complaint Severe Sepsis- POA Bacteremia- POA Likely from urine though was unable to collect a urine yesterday Continue IV abx Blood culture with e coli- await sensitivities Bronchitis- improving Recent rib fractures IS Continue steroids PT/OT/CATERING SERVER MAT protocol HTN HLD A-fib NIDDMII Dementia No acute needs, continue home meds as appropriate DVT ppx: On eliquis PETER,LENNIE M MD Oct 12, 2022 07:58
[2022-10-12 08:05] VITALS: BP 152/89
[2022-10-12] MEDS: CALCIUM CARBONATE 600 MG (CALCARB) TAB PO SCH (08:30)
[2022-10-12] MEDS: ASPIRIN E.C. 81 MG (ECOTRIN) TAB PO SCH (08:30)
[2022-10-12] MEDS: APIXABAN 2.5 MG (ELIQUIS) TABLET PO SCH ×2 (08:30→21:05)
[2022-10-12] MEDS: AZITHROMYCIN 250 MG TAB (ZITHROMAX) PO SCH (08:30)
--- NOTE | 2022-10-12 10:47 | Physical Therapy Progress Note ---
Therapy Progress Note Patient adamantly declined PT. Attempted to encourage patient to participate, however, patient continued to decline. Patient is confused stating the year is 1963. Physician heard conservation and is aware. May attempt later today is time permits. 1 ref OSCAR SR PT Oct 12, 2022 10:47
--- NOTE | 2022-10-12 11:08 | Occ Therapy Progress Note ---
Therapy Progress Note Patient refused therapy this date, refuses to get out of bed or sit EOB. MARIE WEAVER OT Oct 12, 2022 11:08
[2022-10-12 11:09] VITALS: BP 136/86
[2022-10-12] MEDS: cefTRIAXone IV/IM 1,000 MG in NS (IVPB) 50 ML IV SCH (15:13)
[2022-10-12 15:54] VITALS: BP 125/80
[2022-10-12 20:58] VITALS: BP 135/76
[2022-10-12 23:58] VITALS: BP 119/64
[2022-10-13 03:07] VITALS: BP 128/78
[2022-10-13 05:43] LABS: HEMATOCRIT 37 % (40-54); HEMOGLOBIN 12.3 g/dL (13.3-17.7); MEAN CORPUSCULAR HEMOGLOBIN 29 pg (25-34); MEAN CORPUSCULAR HGB CONC 34 g/dL (32-36); MEAN CORPUSCULAR VOLUME 87 fL (80-99); PLATELET COUNT 312 10^3/uL (130-400); WHITE BLOOD COUNT 10.2 10^3/uL (4.3-11.0)
[2022-10-13] MEDS: inSUlin ASPART (NovoLOG) 1 UNIT/0.01 ML (CHARGE PER UNIT) SC SCH ×4 (06:02→21:14)
[2022-10-13 06:03] LABS: POTASSIUM 4.2 MMOL/L (3.6-5.0)
[2022-10-13 06:04] LABS: CALCIUM 10.3 MG/DL (8.5-10.1)
[2022-10-13 06:08] LABS: CREATININE SERUM 0.74 MG/DL (0.60-1.30)
[2022-10-13] MEDS: predniSONE 20 MG TAB PO SCH (06:13)
[2022-10-13 07:51] VITALS: BP 113/70
[2022-10-13] MEDS: CALCIUM CARBONATE 600 MG (CALCARB) TAB PO SCH (08:39)
[2022-10-13] MEDS: APIXABAN 2.5 MG (ELIQUIS) TABLET PO SCH ×2 (08:39→21:14)
[2022-10-13] MEDS: AZITHROMYCIN 250 MG TAB (ZITHROMAX) PO SCH (08:39)
[2022-10-13] MEDS: ASPIRIN E.C. 81 MG (ECOTRIN) TAB PO SCH (08:39)
--- NOTE | 2022-10-13 09:57 | Physical Therapy Daily Note ---
PT Daily Note-Current Subjective Pt in bed, initially agreeable to up to chair with significant encouragement. Once standing, pt reported, "Well I feel like shit now, I'm gonna go down". Pt reported rib pain with standing but no rating given. Pt argumentative with bed mobility but did participate with encouragement. Pain Section J - Health Conditions 1. Rarely or not at all 2. Occasionally 3. Frequently 4. Almost constantly 8. Unable to answer Pain Effect on Sleep: 8 Pain Interference with Therapy: 8 Pain Interference w/Day-to-Day: 8 Mental Status Patient Orientation: Person Attachments: [place] Catheter Transfers SCALE: Activities may be completed with or without assistive devices. 6-Qddquwexau-dookkpq completes the activity by him/herself with no assistance from a helper. 5-Set-up or Clean-up Assistance-helper sets up or cleans up; patient completes activity. [place] assists only prior to or following the activity. 4-Supervision or Touching Assistance-helper provides verbal cues and/or touching/steadying and/or contact guard assistance as patient completes activity. Assistance may be provided throughout the activity or intermittently. 3-Partial/Moderate Assistance-helper does LESS THAN HALF the effort. [place] lifts, holds or supports trunk or limbs, but provides less than half the effort. 2-Substantial/Maximal Assistance-helper does MORE THAN HALF the effort. [place] lifts or holds trunk or limbs and provides more than half the effort. 6-Eqptusfbe-bsnwzw does ALL the effort. Patient does none of the effort to complete the activity. Or, the assistance of 2 or more helpers is required for the patient to complete the activity. If activity was not attempted, code reason: 7-Patient Refused. 9-Not Applicable-not attempted and the patient did not perform the activity before the current illness, exacerbation or injury. 10-Not Attempted due to Environmental Limitations-(lack of equipment, weather restraints, etc.). 88-Not Attempted due to Medical Conditions or Safety Concerns. Roll Left & Right (QC): 1 Sit to Lying (QC): 3 Lying to Sitting/Side of Bed(Q: 1 Sit to Stand (QC): 3 Sit<->stand with mod A x 1. Sidesteps to HOB with mod A x 1, max VCS and assist to move FWW. Pt declined to get up to chair after standing. Did move to HOB begrudgingly. Weight Bearing Right Lower Extremity: Right Full Weight Bearing Left Lower Extremity: Left Full Weight Bearing Gait Training Does the Patient Walk?: No and Walking Goal IS indicated Treatments Sit<->stand x 2 trials with sidesteps to HOB. Rolling L and R multiple times with max A x 1-2 and max VCS for sophia-care and depend change. In bed with all needs met post session. Assessment Current Status: Poor Progress Pt tolerated fair. Self-limited OOB mobility. PT Shelter Goals Shelter Goals PT Shelter Goals Time Frame: Oct 26, 2022 Roll Left & Right (QC): 6 Sit to Lying (QC): 6 Lying-Sitting on Side/Bed(QC): 6 Sit to Stand (QC): 6 Chair/Iwd-kd-Ruire Xfer(QC): 4 Toilet Transfer (QC): 4 Does the Patient Walk: Yes Walk 10 feet (QC): 6 Walk 50ft with 2 Turns (QC): 4 Walk 150 ft (QC): 4 PT Plan Problem List Problem List: Activity Tolerance, Functional Strength, Safety, Balance, Gait, Transfer, Bed Mobility Treatment/Plan Treatment Plan: Continue Plan of Care Treatment Plan: Bed Mobility, Education, Functional Activity Romy, Functional Strength, Group Therapy, Gait, Safety, Therapeutic Exercise, Transfers Treatment Duration: Nov 03, 2022 Frequency: 6 times per week Estimated Hrs Per Day: .25 hour per day Patient and/or Family Agrees t: Yes Time Time In: 918 Time Out: 941 DATE: Oct 13, 2022 Total Billed Treatment Time: 23 Total Billed Treatment 1, FA x 23' STEPHY MITCHELL DPPeggy Oct 13, 2022 09:56
--- NOTE | 2022-10-13 11:20 | Progress Note - Hospitalist ---
Subjective HPI/CC On Admission Date Seen by Provider: Oct 13, 2022 Patient is an 87-year-old male known to me from previous admissions who presented to the emergency department due to shortness of breath and wheezing. He was here earlier this month after a fall at his assisted living facility where he broke 2 or 3 ribs. He was observed overnight and did well. He had some confusion after going home due to pain medicine but after this was c hanged he improved drastically. He was doing well up until Saturday of this week (10/08). His daughter reports he has been a little more confused and been coughing with meals. He was seen by GABRIELLE Savage for Dr Parmar this morning and was found to be wheezing and sent to the ER. He responded well to a breathing treatment and steroids but was slightly hypotensive and given his heart failure decision was made to admit. His only complaint to me is that he is cold. Subjective/Events-last exam Pt reports doing much better today. No complaints. About to get up with PT and agreeable today. Focused Exam Lactate Level 10/10/22 12:17: Lactic Acid Level 1.59 Objective Exam Vital Signs Vital Signs Date Time Temp Pulse Resp B/P (MAP) Pulse Ox O2 Delivery O2 Flow Rate FiO2 10/13/22 08:00 Room Air 10/13/22 07:51 36.6 103 18 113/70 (84) 94 10/13/22 07:15 0.00 10/11/22 21:35 21 Capillary Refill : Less Than 3 Seconds General Appearance: No Apparent Distress, Chronically ill Respiratory: Lungs Clear, No Respiratory Distress Cardiovascular: Regular Rate, Rhythm Neurologic/Psychiatric: Alert, Oriented x3 Results/Procedures Lab Laboratory Tests 10/13/22 05:25 Patient resulted labs reviewed. 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
[2022-10-13 11:23] VITALS: BP 117/73
[2022-10-13] MEDS: cefTRIAXone IV/IM 1,000 MG in NS (IVPB) 50 ML IV SCH (14:52)
[2022-10-13 16:30] VITALS: BP 131/87
[2022-10-13 19:42] VITALS: BP 120/84
[2022-10-13 23:33] VITALS: BP 117/78
[2022-10-14 03:58] VITALS: BP 119/76
[2022-10-14 05:36] LABS: HEMATOCRIT 39 % (40-54); HEMOGLOBIN 13.2 g/dL (13.3-17.7); MEAN CORPUSCULAR HEMOGLOBIN 29 pg (25-34); MEAN CORPUSCULAR HGB CONC 34 g/dL (32-36); MEAN CORPUSCULAR VOLUME 86 fL (80-99); MEAN PLATELET VOLUME 9.6 fL (9.0-12.2); PLATELET COUNT 328 10^3/uL (130-400); WHITE BLOOD COUNT 9.5 10^3/uL (4.3-11.0)
[2022-10-14 05:47] LABS: POTASSIUM 4.5 MMOL/L (3.6-5.0)
[2022-10-14 05:49] LABS: CALCIUM 10.3 MG/DL (8.5-10.1)
[2022-10-14 05:53] LABS: CREATININE SERUM 0.84 MG/DL (0.60-1.30)
[2022-10-14] MEDS: inSUlin ASPART (NovoLOG) 1 UNIT/0.01 ML (CHARGE PER UNIT) SC SCH ×4 (05:54→21:03)
[2022-10-14] MEDS: predniSONE 20 MG TAB PO SCH (06:23)
[2022-10-14 07:47] VITALS: BP 118/77
[2022-10-14] MEDS: CALCIUM CARBONATE 600 MG (CALCARB) TAB PO SCH (08:07)
[2022-10-14] MEDS: AZITHROMYCIN 250 MG TAB (ZITHROMAX) PO SCH (08:07)
[2022-10-14] MEDS: APIXABAN 2.5 MG (ELIQUIS) TABLET PO SCH ×2 (08:07→20:59)
[2022-10-14] MEDS: ASPIRIN E.C. 81 MG (ECOTRIN) TAB PO SCH (08:07)
--- NOTE | 2022-10-14 11:40 | Progress Note - Hospitalist ---
Subjective HPI/CC On Admission Date Seen by Provider: Oct 14, 2022 Patient is an 87-year-old male known to me from previous admissions who presented to the emergency department due to shortness of breath and wheezing. He was here earlier this month after a fall at his assisted living facility where he broke 2 or 3 ribs. He was observed overnight and did well. He had some confusion after going home due to pain medicine but after this was c hanged he improved drastically. He was doing well up until Saturday of this week (10/08). His daughter reports he has been a little more confused and been coughing with meals. He was seen by GABRIELLE Savage for Dr Parmar this morning and was found to be wheezing and sent to the ER. He responded well to a breathing treatment and steroids but was slightly hypotensive and given his heart failure decision was made to admit. His only complaint to me is that he is cold. Subjective/Events-last exam Pt more confused today. No specific complaints. When asked if he needed anything he said "a new everything." Objective Exam Vital Signs Vital Signs Date Time Temp Pulse Resp B/P (MAP) Pulse Ox O2 Delivery O2 Flow Rate FiO2 10/14/22 08:16 Room Air 10/14/22 07:47 36.7 84 18 118/77 (91) 95 10/13/22 07:15 0.00 10/11/22 21:35 21 Capillary Refill : Less Than 3 Seconds General Appearance: No Apparent Distress, Chronically ill Respiratory: Lungs Clear Cardiovascular: Regular Rate, Rhythm Gastrointestinal: Normal Bowel Sounds, Soft Neurologic/Psychiatric: Alert, Other (oriented to person and place) Results/Procedures Lab Laboratory Tests 10/14/22 04:57 Patient resulted labs reviewed. Imaging: Reviewed Imaging Report Assessment/Plan Assessment and Plan Assess & Plan/Chief Complaint Severe Sepsis- POA Bacteremia- POA Transition to oral abx Blood culture with pansensitive e coli Bronchitis- improving Recent rib fractures IS Completed steroids today PT/OT/OCC THERAPY ASST MAT protocol Will likely need placement, SW consulted, appreciate recs HTN HLD A-fib NIDDMII Dementia No acute needs, continue home meds as appropriate DVT ppx: On LENNIE Maria MD Oct 14, 2022 11:40
[2022-10-14] MEDS: CEPHALEXIN 250 MG (KEFLEX) CAP PO SCH ×2 (12:08→20:59)
[2022-10-14 12:40] VITALS: BP 133/90
[2022-10-14 16:20] VITALS: BP 123/77
[2022-10-14 19:58] VITALS: BP 117/73
[2022-10-14 23:36] VITALS: BP 120/71
[2022-10-15 03:43] VITALS: BP 107/70
[2022-10-15 05:19] LABS: HEMATOCRIT 41 % (40-54); HEMOGLOBIN 13.8 g/dL (13.3-17.7); MEAN CORPUSCULAR HEMOGLOBIN 29 pg (25-34); MEAN CORPUSCULAR HGB CONC 34 g/dL (32-36); MEAN CORPUSCULAR VOLUME 86 fL (80-99); PLATELET COUNT 332 10^3/uL (130-400); WHITE BLOOD COUNT 8.8 10^3/uL (4.3-11.0)
[2022-10-15 05:33] LABS: POTASSIUM 4.2 MMOL/L (3.6-5.0)
[2022-10-15 05:34] LABS: CALCIUM 9.7 MG/DL (8.5-10.1)
[2022-10-15 05:38] LABS: CREATININE SERUM 0.85 MG/DL (0.60-1.30)
[2022-10-15] MEDS: inSUlin ASPART (NovoLOG) 1 UNIT/0.01 ML (CHARGE PER UNIT) SC SCH ×4 (05:38→21:32)
[2022-10-15 08:02] VITALS: BP 113/77
[2022-10-15] MEDS: CALCIUM CARBONATE 600 MG (CALCARB) TAB PO SCH (08:14)
[2022-10-15] MEDS: APIXABAN 2.5 MG (ELIQUIS) TABLET PO SCH ×2 (08:15→21:31)
[2022-10-15] MEDS: CEPHALEXIN 250 MG (KEFLEX) CAP PO SCH ×2 (08:15→21:31)
[2022-10-15] MEDS: ASPIRIN E.C. 81 MG (ECOTRIN) TAB PO SCH (08:15)
--- NOTE | 2022-10-15 10:04 | Physical Therapy Daily Note ---
PT Daily Note-Current Subjective Patient appears more confused on this date. Agrees to therapy. Pain Section J - Health Conditions 1. Rarely or not at all 2. Occasionally 3. Frequently 4. Almost constantly 8. Unable to answer Pain Effect on Sleep: 8 Pain Interference with Therapy: 8 Pain Interference w/Day-to-Day: 8 Mental Status Patient Orientation: Confused Transfers SCALE: Activities may be completed with or without assistive devices. 0-Elxiwzxfaz-dxcoyrl completes the activity by him/herself with no assistance from a helper. 5-Set-up or Clean-up Assistance-helper sets up or cleans up; patient completes activity. [place] assists only prior to or following the activity. 4-Supervision or Touching Assistance-helper provides verbal cues and/or touching/steadying and/or contact guard assistance as patient completes acti vity. Assistance may be provided throughout the activity or intermittently. 3-Partial/Moderate Assistance-helper does LESS THAN HALF the effort. [place] lifts, holds or supports trunk or limbs, but provides less than half the effort. 2-Substantial/Maximal Assistance-helper does MORE THAN HALF the effort. [place] lifts or holds trunk or limbs and provides more than half the effort. 9-Ioireobey-kyucwx does ALL the effort. Patient does none of the effort to complete the activity. Or, the assistance of 2 or more helpers is required for the patient to complete the activity. If activity was not attempted, code reason: 7-Patient Refused. 9-Not Applicable-not attempted and the patient did not perform the activity before the current illness, exacerbation or injury. 10-Not Attempted due to Environmental Limitations-(lack of equipment, weather restraints, etc.). 88-Not Attempted due to Medical Conditions or Safety Concerns. Lying to Sitting/Side of Bed(Q: 3 (mod assist) Sit to Stand (QC): 3 (mod assist) Chair/Hgj-uw-Pexyv Xfer(QC): 3 (mod assist) Weight Bearing Right Lower Extremity: Right Full Weight Bearing Left Lower Extremity: Left Full Weight Bearing Gait Training Distance: 10' Walk 10 feet (QC): 3 (mod assist) Gait Assistive Device: FWW impulsive to sit requiring continuous VC's to remain upright with FWW use Assessment Patient requires continuous redirection to remain on task. Patient is up in recliner with chair alarm activated. Patient adamantly declined to ambulate farther distance. Patient does yell during session. PT Snf Goals Trenching Machine Operator Goals PT Trenching Machine Operator Goals Time Frame: Oct 26, 2022 Roll Left & Right (QC): 6 Sit to Lying (QC): 6 Lying-Sitting on Side/Bed(QC): 6 Sit to Stand (QC): 6 Chair/Qpx-ms-Vmgiw Xfer(QC): 4 Toilet Transfer (QC): 4 Does the Patient Walk: Yes Walk 10 feet (QC): 6 Walk 50ft with 2 Turns (QC): 4 Walk 150 ft (QC): 4 PT Plan Treatment/Plan Treatment Plan: Continue Plan of Care Treatment Plan: Bed Mobility, Education, Functional Activity Romy, Functional Strength, Group Therapy, Gait, Safety, Therapeutic Exercise, Transfers Treatment Duration: Nov 03, 2022 Frequency: 6 times per week Estimated Hrs Per Day: .25 hour per day Patient and/or Family Agrees t: Yes Time Time In: 906 Time Out: 917 DATE: Oct 15, 2022 Total Billed Treatment Time: 11 Total Billed Treatment 1 visit FA 11 min OSCAR SR PT Oct 15, 2022 10:04
--- NOTE | 2022-10-15 10:26 | Occupational Ther Daily Note ---
OT Current Status-Daily Note Subjective Patient has a room change. Patient is resistive to therapy however participates. Patient yells multiple time through session. Patient does not provide explanation for hollering out. Mental Status/Objective Patient Orientation: Person (acknowledges his name) ADL-Treatment With use of FWW and gait belt requires additional person assist to stand and navigate FWW. with OT providing ADL interventions Therapy Code Descriptions/Definitions Functional Dillon Measure: 0=Not Assessed/NA 4=Minimal Assistance 1=Total Assistance 5=Supervision or Setup 2=Maximal Assistance 6=Modified Dillon 3=Moderate Assistance 7=Complete IndependenceSCALE: Activities may be completed with or without assistive devices. 0-Xurmcpsybf-maghnfy completes the activity by him/herself with no assistance from a helper. 5-Set-up or Clean-up Assistance-helper sets up or cleans up; patient completes activity. [place] assists only prior to or following the activity. 4-Supervision or Touching Assistance-helper provides verbal cues and/or touching/steadying and/or contact guard assistance as patient completes activity. Assistance may be provided throughout the activity or intermittently. 3-Partial/Moderate Assistance-helper does LESS THAN HALF the effort. [place] lifts, holds or supports trunk or limbs, but provides less than half the effort. 2-Substantial/Maximal Assistance-helper does MORE THAN HALF the effort. [place] lifts or holds trunk or limbs and provides more than half the effort. 9-Xxdqmchmv-lybbqc does ALL the effort. Patient does none of the effort to complete the activity. Or, the assistance of 2 or more helpers is required for the patient to complete the activity. If activity was not attempted, code reason: 7-Patient Refused. 9-Not Applicable-not attempted and the patient did not perform the activity before the current illness, exacerbation or injury. 10-Not Attempted due to Environmental Limitations-(lack of equipment, weather restraints, etc.). 88-Not Attempted due to Medical Conditions or Safety Concerns. Eating (QC): 5 Oral Hygiene (QC): 7 Shower/Bathe Self (QC): 7 Upper Body Dressing (QC): 3 Lower Body Dressing (QC): 1 On/Off Footwear: 1 Toileting Hygiene (QC): 1 Toilet Transfer (QC): 1 Education OT Patient Education: Correct positioning, Modified ADL techniques, Progress toward Goal/Update tx plan, Purpose of tx/functional activities, Reviewed precautions, Rehab process, Safety issues, Transfer techniques, Use of adapted equipment Teaching Recipient: Patient Teaching Methods: Demonstration, Discussion Response to Teaching: Reinforcement Needed OT Half-Way Goals Half-Way Goals Eating (QC): 5 Oral Hygiene (QC): 5 Toileting Hygiene (QC): 4 Shower/Bathe Self (QC): 3 Upper Body Dressing (QC): 4 Lower Body Dressing (QC): 4 On/Off Footwear (QC): 4 1=Demonstrate adherence to instructed precautions during ADL tasks. 2=Patient will verbalize/demonstrate understanding of assistive devices/modifications for ADL. 3=Patient will improve strength/tolerance for activity to enable patient to perform ADL's. OT Education/Plan Problem List/Assessment Assessment: Decreased Activ Tolerance, Decreased Safety Aware, Impaired Cognition, Impaired Coordination, Impaired Funct Balance, Impaired Self-Care Skills Discharge Recommendations Plan/Recommendations: Continue POC Treatment Plan/Plan of Care Treatment,Training & Education: Yes Patient would benefit from OT for education, treatment and training to promote independence in ADL's, mobility, safety and/or upper extremity function for ADL's. Plan of Care: ADL Retraining, Caregiver Training, Concurrent Therapy, Functional Mobility, Group Exercise/Act as Ind, UE Funct Exercise/Act Treatment Duration: Oct 10, 2022 Frequency: 3 times per week (3-5 times per week) Estimated Hrs Per Day: .25 hour per day Agreement: Yes Rehab Potential: Fair Patient remains in recliner w/ chair alarm activated, blanket over legs, don table in reach and all needs met at completion of session Time Start Time: 10:06 Stop Time: 10:17 DATE: Oct 15, 2022 Total Time Billed (hr/min): 11 Billed Treatment Time ADL 11 min MARIE WEAVER OT Oct 15, 2022 10:26
--- NOTE | 2022-10-15 10:31 | Occ Therapy Progress Note ---
Therapy Progress Note OT order received, patient is out or room for testing , OT will monitor and return next available opportunity MARIE WEAVER OT Oct 15, 2022 10:31
[2022-10-15 12:53] VITALS: BP 120/83
[2022-10-15 15:40] VITALS: BP 119/78
--- NOTE | 2022-10-15 15:46 | Progress Note - Hospitalist ---
Subjective HPI/CC On Admission Date Seen by Provider: Oct 15, 2022 Time Seen by Provider: 10:45 Patient is an 87-year-old male known to me from previous admissions who presented to the emergency department due to shortness of breath and wheezing. He was here earlier this month after a fall at his assisted living facility where he broke 2 or 3 ribs. He was observed overnight and did well. He had some confusion after going home due to pain medicine but after this was changed he improved drastically. He was doing well up until Saturday of this week (10/08). His daughter reports he has been a little more confused and been coughing with meals. He was seen by GABRIELLE Savage for Dr Parmar this morning and was found to be wheezing and sent to the ER. He responded well to a breathing treatment and steroids but was slightly hypotensive and given his heart failure decision was made to admit. His only complaint to me is that he is cold. Subjective/Events-last exam He is sitting in his chair. He has no complaints. Objective Exam Vital Signs Vital Signs Date Time Temp Pulse Resp B/P (MAP) Pulse Ox O2 Delivery O2 Flow Rate FiO2 10/15/22 12:53 36.4 96 20 120/83 (95) 94 Room Air 10/13/22 07:15 0.00 10/11/22 21:35 21 Capillary Refill : Less Than 3 Seconds General Appearance: No Apparent Distress, WD/WN Respiratory: Lungs Clear, No Respiratory Distress Cardiovascular: Regular Rate, Rhythm, No Murmur Gastrointestinal: Normal Bowel Sounds, Soft Extremity: Normal Inspection, No Pedal Edema Neurologic/Psychiatric: Alert, Normal Mood/Affect Skin: Normal Color, Warm/Dry Results/Procedures Lab Laboratory Tests 10/15/22 05:08 Patient resulted labs reviewed. Imaging: Reviewed Imaging Report Assessment/Plan Assessment and Plan Assess & Plan/Chief Complaint Severe Sepsis- POA Bacteremia- POA Continue oral abx Blood culture with pansensitive e coli Bronchitis- improving Recent rib fractures IS s/p steroids PT/OT/ADVENTURE THERAPIST MAT protocol Will likely need placement, SW consulted, appreciate recs HTN HLD A-fib NIDDMII Dementia No acute needs, continue home meds as appropriate DVT ppx: On eliquis Diagnosis/Problems Diagnosis/Problems (1) Severe sepsis Status: Acute (2) E coli bacteremia Status: Acute (3) HTN (hypertension) Status: Chronic (4) CAD (coronary artery disease) Status: Chronic (5) Insulin dependent diabetes mellitus Status: Chronic (6) Afib Status: Chronic (7) Debility Status: Acute ADELITA MARTINS MD Oct 15, 2022 15:46
[2022-10-15 19:16] VITALS: BP 125/60
[2022-10-15 23:25] VITALS: BP 111/74
[2022-10-16 03:09] VITALS: BP 117/79
[2022-10-16] MEDS: inSUlin ASPART (NovoLOG) 1 UNIT/0.01 ML (CHARGE PER UNIT) SC SCH (05:28)
[2022-10-16 05:43] LABS: HEMATOCRIT 41 % (40-54); HEMOGLOBIN 13.8 g/dL (13.3-17.7); MEAN CORPUSCULAR HEMOGLOBIN 29 pg (25-34); MEAN CORPUSCULAR HGB CONC 33 g/dL (32-36); MEAN CORPUSCULAR VOLUME 88 fL (80-99); MEAN PLATELET VOLUME 9.3 fL (9.0-12.2); PLATELET COUNT 294 10^3/uL (130-400); WHITE BLOOD COUNT 8.8 10^3/uL (4.3-11.0)
[2022-10-16 06:13] LABS: CALCIUM 9.5 MG/DL (8.5-10.1); CREATININE SERUM 0.88 MG/DL (0.60-1.30); POTASSIUM 4.4 MMOL/L (3.6-5.0)
[2022-10-16 07:13] VITALS: BP 127/71
[2022-10-16] MEDS: CEPHALEXIN 250 MG (KEFLEX) CAP PO SCH (08:42)
[2022-10-16] MEDS: ASPIRIN E.C. 81 MG (ECOTRIN) TAB PO SCH (08:42)
[2022-10-16] MEDS: APIXABAN 2.5 MG (ELIQUIS) TABLET PO SCH (08:42)
[2022-10-16] MEDS: CALCIUM CARBONATE 600 MG (CALCARB) TAB PO SCH (08:42)
[2022-10-16] MEDS ORDERED: CALC-823 PO (10:00)
[2022-10-16] MEDS ORDERED: NF-PLET100 PO (10:00)
[2022-10-16] MEDS ORDERED: CEPH250C PO (10:00)
[2022-10-16] MEDS ORDERED: ATOR20TA66 PO (10:00)
[2022-10-16] MEDS ORDERED: ACHD5005 PO (10:00)
[2022-10-16] MEDS ORDERED: CARV3.122 PO (10:00)
[2022-10-16] MEDS ORDERED: OMEG1CAP58 PO (10:00)
[2022-10-16] MEDS ORDERED: INSU100I88 SC (10:00)
[2022-10-16] MEDS ORDERED: DILT180C85 PO (10:00)
[2022-10-16] MEDS ORDERED: MULT-1136 PO (10:00)
[2022-10-16] MEDS ORDERED: ACET-2267 PO (10:00)
[2022-10-16] MEDS ORDERED: RAMI5CAP65 PO (10:00)
[2022-10-16] MEDS ORDERED: METH1ADH15 TP (10:00)
[2022-10-16] MEDS ORDERED: ASPI-1238 PO (10:00)
[2022-10-16] MEDS ORDERED: MELO15TA39 PO (10:00)
[2022-10-16] MEDS ORDERED: LOPE-134 PO (10:00)
[2022-10-16] MEDS ORDERED: APIX2.5T PO (10:00)
--- NOTE | 2022-10-16 10:04 | Discharge Inst-Skilled Nursing ---
Discharge Inst-Skilled NF Consult/Follow Up/Orders Follow Up Appt.: Dr. Parmar in about a week Skilled NF Admit to: Via [facility], [place] Certification (SNF) I certify that SNF services are required to be given on an inpatient basis because of the above named patient's need for assisted care on a continuing basis for the conditions(s) for which he/she was receiving inpatient hospital services prior to his/her transfer to the SNF. [facility] Facility Order: Nursing Services, Professor Of Family Medicine-Evaluate & Treat, Physical Therapy-Evaluate & Treat Oxygen Delivery Method: Room Air Discharge Diet: Low Sodium Diet, ADA Diet Daily Activity as Tolerated: Yes Resuscitation Status: Full Code New & Resume Previous Orders Ingris Martins Oct 16, 2022 10:03 INGRIS MARTINS MD Oct 16, 2022 10:04
[2022-10-16] MEDS ORDERED: SIMETHICONE 80 MG (MYLICON) CHEW PO NR (11:00)
[2022-10-16] MEDS: HYDROcodone/APAP 5 MG/325 MG (LORTAB) TAB PO PRN (11:07)
[2022-10-16 11:25] VITALS: BP 127/71
--- NOTE | 2022-10-16 18:38 | Discharge Summary ---
Discharge Summary Hospital Course Problems/Dx: (1) Severe sepsis Status: Acute (2) E coli bacteremia Status: Acute (3) HTN (hypertension) Status: Chronic (4) CAD (coronary artery disease) Status: Chronic (5) Insulin dependent diabetes mellitus Status: Chronic (6) Afib Status: Chronic (7) Debility Status: Acute Hospital Course Date of Admission: Oct 11, 2022 at 07:26 Admission Diagnosis : Severe sepsis Family Physician/Provider: Aries Parmar MD Date of Discharge: 10/16/22 Discharge Diagnosis: Severe sepsis due to E coli bacteremia Hospital Course: Michael Romo is an 87 year old male who was admitted with severe sepsis due to E coli bacteremia. His UA was concerning for UTI. His urine culture was not performed due to presence of "mixed bacterial eliseo", though this was likely the source. He was given a course of IV antibiotics and was then transitioned to Omnicef for ansari-sensitive E coli. He was also debilitated. He was discharged to [facility] in stable condition. Labs and Pending Lab Test: Laboratory Tests 10/15/22 19:57: Glucometer 236H 10/16/22 05:25: Glucometer 116H 10/16/22 05:26: White Blood Count 8.8, Red Blood Count 4.70, Hemoglobin 13.8, Hematocrit 41, Mean Corpuscular Volume 88, Mean Corpuscular Hemoglobin 29, Mean Corpuscular Hemoglobin Concent 33, Red Cell Distribution Width 15.0H, Platelet Count 294, Mean Platelet Volume 9.3, Sodium Level 135, Potassium Level 4.4, Chloride Level 101, Carbon Dioxide Level 25, Anion Gap 9, Blood Urea Nitrogen 19H, Creatinine 0.88, Estimat Glomerular Filtration Rate 83, BUN/Creatinine Ratio 22, Glucose Level 123H, Calcium Level 9.5 Microbiology 10/11/22 Urine Culture - Final, Complete Mixed Bacterial Eliseo No Further Testing 10/10/22 Blood Culture - Final, Complete No growth Home Meds Active Cephalexin 250 Mg Capsule 500 Mg PO BID 5 Days Tylenol Extra Strength (Acetaminophen) 500 Mg Tablet 1,000 Mg PO Q6H PRN 30 Days Hydrocodone-Acetamin 5-325 mg (Hydrocodone/Acetaminophen) 5 Mg-325 Mg Tablet 1 Ea PO Q4H PRN 30 Days Meloxicam 15 Mg Tablet 15 Mg PO DAILY PRN 30 Days Salonpas Patch (Methyl Salicylate/Menthol) 10 %-3 % Adh..patch 1 Each TP DAILY 30 Days APPLY TO RIGHT KNEE Levemir Flexpen (Insulin Detemir) 100 Unit/Ml (3 Ml) Insuln.pen 10 Units SC 1600 AT EVENING MEAL 30 Days Diltiazem 24Hr ER (Diltiazem HCl) 180 Mg Cap.er.24h 180 Mg PO DAILY 30 Days Aspirin EC (Aspirin) 81 Mg Tablet.dr 81 Mg PO DAILY 30 Days Eliquis (Apixaban) 2.5 Mg Tablet 2.5 Mg PO BID 30 Days Ramipril 5 Mg Capsule 5 Mg PO DAILY 30 Days Carvedilol 3.125 Mg Tablet 3.125 Mg PO BID 30 Days Multivitamin 1 Each Tablet 1 Each PO DAILY 30 Days Dana 3 1,000 mg Softgel (Dana-3 Fatty Acids/Fish Oil) 300 Mg-1,000 Mg Capsule 1 Each PO DAILY 30 Days Imodium A-D (Loperamide HCl) 2 Mg Tablet 2-4 Mg PO UD 30 Days TAKES 2 (2MG) TAB FOR THE FIRST INITIAL DOSE AND 1 TAB FOR EACH UNFORMED STOOL Calcium (Calcium Carbonate) 500 Mg Calcium (1250 Mg) Tablet 500 Mg PO DAILY 30 Days Atorvastatin Calcium 20 Mg Tablet 20 Mg PO HS 30 Days Cilostazol 100 Mg Tablet 100 Mg PO BID 30 Days Assessment/Pt Instructions Take medications as prescribed. Follow up with Dr. Parmar as scheduled. Return with worsening pain, confusion, weakness, or if you feel like you are getting worse. Discharge Planning: >30 minutes discharge planning Discharge Instructions Discharge Diet: Low Sodium Diet, ADA Diet Activity as Tolerated: Yes Discharge Physical Examination Vital Signs Vital Signs Date Time Temp Pulse Resp B/P (MAP) Pulse Ox O2 Delivery O2 Flow Rate FiO2 10/16/22 11:25 36.2 96 18 127/71 95 Room Air 0.00 10/11/22 21:35 21 General Appearance: No Apparent Distress, WD/WN Respiratory: Lungs Clear, No Respiratory Distress Cardiovascular: Regular Rate, Rhythm, No Murmur Gastrointestinal: Normal Bowel Sounds, Soft, Tenderness Extremity: Normal Inspection, No Pedal Edema Skin: Normal Color, Warm/Dry Allergies: Coded Allergies: No Known Drug Allergies (Unverified , 06/06/17) Copy Copies To 1: ARIES PARMAR MD Discharge Summary Date of Admission Oct 11, 2022 at 07:26 Date of Discharge Oct 16, 2022 at 11:25 Discharge Date: Oct 16, 2022 Discharge Time: 11:25 Admission Diagnosis Severe sepsis Discharge Diagnosis Severe Sepsis E coli bacteremia Likely UTI Bronchitis Recent rib fractures HTN HLD A-fib NIDDMII Dementia (1) Severe sepsis Status: Acute (2) E coli bacteremia Status: Acute (3) HTN (hypertension) Status: Chronic (4) CAD (coronary artery disease) Status: Chronic (5) Insulin dependent diabetes mellitus Status: Chronic (6) Afib Status: Chronic (7) Debility Status: Acute ADELITA MARTINS MD Oct 16, 2022 18:38
== END 2022-10-16 11:25 | DRG 872 ==
LOC: EDUNIT# 09:59 → ER 10:01 → 4TH 13:45 → OBSVTOIN 10-11 07:26 → 4TH 10-12 18:53
PROVIDERS: ADMIT Family Medicine; ATTEND Internal Medicine
DX: A41.51 Sepsis due to Escherichia coli [E. coli] (principal); N39.0 Urinary tract infection, site not specified; J98.11 Atelectasis; R65.20 Severe sepsis without septic shock; J40 Bronchitis, not specified as acute or chronic; S22.49XD Multiple fractures of ribs, unspecified side, subsequent encounter for fracture with routine healing; I11.0 Hypertensive heart disease with heart failure; I50.9 Heart failure, unspecified; I25.5 Ischemic cardiomyopathy; I25.119 Atherosclerotic heart disease of native coronary artery with unspecified angina pectoris; E78.00 Pure hypercholesterolemia, unspecified; F03.90 Unspecified dementia, unspecified severity, without behavioral disturbance, psychotic disturbance, mood disturbance, and anxiety; E11.40 Type 2 diabetes mellitus with diabetic neuropathy, unspecified; H91.90 Unspecified hearing loss, unspecified ear; M10.9 Gout, unspecified; I25.2 Old myocardial infarction; Z79.4 Long term (current) use of insulin; Z95.5 Presence of coronary angioplasty implant and graft; Z79.01 Long term (current) use of anticoagulants; Z95.2 Presence of prosthetic heart valve; Z96.651 Presence of right artificial knee joint; Z87.891 Personal history of nicotine dependence; Z85.828 Personal history of other malignant neoplasm of skin; Z79.82 Long term (current) use of aspirin; Z79.899 Other long term (current) drug therapy; W19.XXXD Unspecified fall, subsequent encounter
CPT/HCPCS: 36415; 71045; 80048; 80053; 81000; 82947; 83605; 83880; 85025; 85027; 87040; 87077; 87088; 87186; 94640; 94760; G0378

== ENCOUNTER 2022-10-24 23:56 | Inpatient (IN) | payer MEDICARE, BC ==
[~2022-10-24] VITALS: Ht 175.3 cm; Wt 86.5 kg
[~2022-10-24 23:56] MED LIST changes: +CEPH250C PO
[2022-10-25] VITALS (7 sets, daily range): BP systolic 123–144; BP diastolic 62–100
[2022-10-25 00:18] LABS: BASOPHILS % (AUTO) 0 % (0-10); EOSINOPHILS # (AUTO) 0.2 10^3/uL (0.0-0.3); EOSINOPHILS % (AUTO) 3 % (0-10); HEMATOCRIT 36 % (40-54); HEMOGLOBIN 11.9 g/dL (13.3-17.7); LYMPHOCYTES # (AUTO) 1.5 10^3/uL (1.0-4.0); LYMPHOCYTES % (AUTO) 23 % (12-44); MEAN CORPUSCULAR HEMOGLOBIN 30 pg (25-34); MEAN CORPUSCULAR HGB CONC 33 g/dL (32-36); MEAN CORPUSCULAR VOLUME 89 fL (80-99); MEAN PLATELET VOLUME 9.3 fL (9.0-12.2); MONOCYTES # (AUTO) 0.9 10^3/uL (0.0-1.0); MONOCYTES % (AUTO) 13 % (0-12); NEUTROPHILS # (AUTO) 3.8 10^3/uL (1.8-7.8); NEUTROPHILS % (AUTO) 59 % (42-75); PLATELET COUNT 172 10^3/uL (130-400); WHITE BLOOD COUNT 6.5 10^3/uL (4.3-11.0)
[2022-10-25 00:26] LABS: ALBUMIN 3.5 GM/DL (3.2-4.5)
[2022-10-25 00:27] LABS: POTASSIUM 4.4 MMOL/L (3.6-5.0)
[2022-10-25 00:28] LABS: CALCIUM 9.4 MG/DL (8.5-10.1); INR 1.1 (0.8-1.4); PROTHROMBIN TIME PATIENT 14.7 SEC (12.2-14.7)
[2022-10-25 00:29] LABS: TOTAL PROTEIN 6.8 GM/DL (6.4-8.2)
[2022-10-25 00:33] LABS: CREATININE SERUM 1.21 MG/DL (0.60-1.30)
[2022-10-25 00:36] LABS: MAGNESIUM 1.9 MG/DL (1.6-2.4)
[2022-10-25 00:49] LABS: CREATINE KINASE MB 7.6 NG/ML (<6.6)
--- NOTE | 2022-10-25 00:58 | ED General ---
General Chief Complaint: Trauma-Non Activation Stated Complaint: FALL Nursing Triage Note: PT TO RM 5 VIA [facility] EMS FROM VIA [facility] [place]. VCV RN REPORTS UNWITNESSED FALL AT 1950 LAST NIGHT, STATES PT HIT HEAD, ABRASION NOTED TO TOP OF HEAD. PT C/O LLQ PAIN. Source of Information: Patient (PT IS POOR HISTORIAN AND HAS NO RECOLLECTION OF EVENT), EMS, Intermediate Records, Old Records (ALL PMH IS FROM OLD RECORDS AND LONG-TERM PAPERS) History of Present Illness Date Seen by Provider: Oct 24, 2022 Time Seen by Provider: 23:59 Initial Comments PT ARRIVES VIA EMS FROM VIA [facility] PT HAD AN UNWITNESSED EVENT AT LONG-TERM, FOUND AT 1950 TONIGHT, WITH ABRASION TO TOP OF HEAD PT STATES HE DOES NOT KNOW WHAT HAPPENED OR REMEMBER ANYTHING ABOUT TONIGHT HE ONLY C/O LLQ PAIN PT DID FALL ABOUT A WEEK AGO, AND BROKE RIBS HE DENIES CHEST PAIN OR SHORTNESS OF BREATH PT IS ON ELIQUIS AND 81 MG ASPIRIN HE IS INSULIN DEPENDENT DIABETIC. PT ALSO HAS DEMENTIA, AND HAS HISTORY OF FALLS PT IS AT NORMAL BASELINE, PER REPORT. PT NORMALLY VERBALLY AGGRESSIVE Location Injury Occurred: VIA [place], [place] PCP: DR. BARBOZA Allergies and Home Medications Allergies Coded Allergies: No Known Drug Allergies (Unverified , 06/06/17) Patient Home Medication List Acetaminophen (Tylenol Extra Strength) 500 Mg Tablet, 1,000 MG PO Q6H PRN for PAIN-MILD (1-4) Prescribed by: ADELITA MARTINS on 10/16/22 1000 Apixaban (Eliquis) 2.5 Mg Tablet, 2.5 MG PO BID Prescribed by: ADELITA MARTINS on 10/16/22 1000 Aspirin (Aspirin EC) 81 Mg Tablet.dr 81 MG PO DAILY Prescribed by: ADELITA MARTINS on 10/16/22 1000 Atorvastatin Calcium (Atorvastatin Calcium) 20 Mg Tablet, 20 MG PO HS Prescribed by: ADELITA MARTINS on 10/16/22 1000 Calcium Carbonate (Calcium) 500 Mg Calcium (1250 Mg) Tablet, 500 MG PO DAILY Prescribed by: ADELITA MARTINS on 10/16/22 1000 Carvedilol (Carvedilol) 3.125 Mg Tablet, 3.125 MG PO BID Prescribed by: ADELITA MARTINS on 10/16/22 1000 Cephalexin (Cephalexin) 250 Mg Capsule, 500 MG PO BID Prescribed by: ADELITA MARTINS on 10/16/22 1000 Cilostazol (Cilostazol) 100 Mg Tablet, 100 MG PO BID Prescribed by: ADELITA MARTINS on 10/16/22 1000 Diltiazem HCl (Diltiazem 24Hr ER) 180 Mg Cap.er.24h, 180 MG PO DAILY Prescribed by: ADELITA MARTINS on 10/16/22 1000 Hydrocodone/Acetaminophen (Hydrocodone-Acetamin 5-325 mg) 5 Mg-325 Mg Tablet, 1 EA PO Q4H PRN for PAIN-MODERATE (5-7) Prescribed by: ADELITA MARTINS on 10/16/22 1001 Insulin Detemir (Levemir Flexpen) 100 Unit/Ml (3 Ml) Insuln.pen, 10 UNITS SC 1600 AT EVENING MEAL Prescribed by: ADELITA MARTINS on 10/16/22 1000 Loperamide HCl (Imodium A-D) 2 Mg Tablet, 2-4 MG PO UD Prescribed by: ADELITA MARTINS on 10/16/22 1000 Meloxicam (Meloxicam) 15 Mg Tablet, 15 MG PO DAILY PRN for PAIN-BREAKTHROUGH Prescribed by: ADELITA MARTINS on 10/16/22 1000 Methyl Salicylate/Menthol (Salonpas Patch) 10 %-3 % Adh..patch, 1 EACH TP DAILY Prescribed by: ADELITA MARTINS on 10/16/22 1000 Multivitamin (Multivitamin) 1 Each Tablet, 1 EACH PO DAILY Prescribed by: ADELITA MARTINS on 10/16/22 1000 [place]-3 Fatty Acids/Fish Oil ([place] 3 1,000 mg Softgel) 300 Mg-1,000 Mg Capsule, 1 EACH PO DAILY Prescribed by: ADELITA MARTINS on 10/16/22 1000 Ramipril (Ramipril) 5 Mg Capsule, 5 MG PO DAILY Prescribed by: ADELITA MARTINS on 10/16/22 1000 Review of Systems Review of Systems Constitutional: see HPI Past Zqefain-Alfgxz-Jrzgka Hx Patient Social History Tobacco Use?: No Use of E-Cig and/or Vaping dev: No Substance use?: No Alcohol Use?: No Pt feels they are or have been: No Immunizations Up To Date PED Vaccines UTD: Yes Seasonal Allergies Seasonal Allergies: No Past Medical History Surgery/Hospitalization HX: Bilateral Rotator Cuff Repair Right Knee Replacement Right Femoral Fracture plated Broken bilateral legs 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 Heart Cath Surgeries: Yes (rotator cuff bilat,knee replacement,broken legs bilat,melanoma in ear;LOOP) Cardiac, Ear Surgery, Orthopedic, Valve Replacement Respiratory: No Currently Using CPAP: No Currently Using BIPAP: No Cardiac: Yes (Heart failure with ischemic cardiomyopathy; LOOP RECORDER) Angina, Chronic Edema/Swelling, Coronary Artery Disease, Heart Attack, High Cholesterol, Hypertension, Peripheral Vascular, Valvular Heart Disease Neurological: Yes Dementia, Neuropathy Reproductive Disorders: No Sexually Transmitted Disease: No HIV/AIDS: No Genitourinary: No Gastrointestinal: No Musculoskeletal: Yes Gout Endocrine: Yes Diabetes, Insulin dep HEENT: Yes Cataract Loss of Vision: Denies Hearing Impairment: Hard of Hearing Cancer: Yes Skin, Melanoma Did You Recieve Any Treatments: No Psychosocial: No Sleep Difficulties Integumentary: Yes (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 ) Blood Disorders: No Adverse Reaction/Blood Tranf: No Family Medical History Cancer 09 SISTER, Onset:60 years & older (OVARIAN CANCER) 09 SISTER, Onset:40's - 50 (BREAST CANCER) Chest pain 03 FATHER, Onset:50's - 60 ([place]) Dementia 03 MOTHER, Onset:60 years & older Family history: Alzheimer's disease 03 MOTHER, Onset:60 years & older Family history: Arthritis 03 FATHER, Onset:40's - 50 Family history: Breast disease 09 SISTER, Onset:40's - 50 ( OF BREAST CANCER) Family history: Cardiovascular disease 03 FATHER, Onset:40's - 50 Family history: Hypertension 03 FATHER, Onset:40's - 50 Heart disease 03 FATHER, Onset:40's - 50 Hypercholesterolemia 03 FATHER, Onset:40's - 50 Myocardial infarction 03 FATHER, Onset:40's - 50 Visual impairment 09 SISTER, Onset:40's - 50 No Family History of: Abdominal aortic aneurysm [place]illa's disease Alcoholism Aphasia Cancer of colon Cataract Congenital heart disease Congestive heart failure Cystic fibrosis Dysphagia Family history: Allergy Family history: Asthma Family history: Coronary thrombosis Family history: Diabetes mellitus Family history: Gastrointestinal disease Family history: Glaucoma Family history: Osteoporosis Family history: Thyroid disorder Headache Hearing loss Hereditary disease History of - anemia History of - disorder History of - respiratory disease History of drug abuse Human immunodeficiency virus (HIV) seropositivity Infertile Kidney disease Malignant neoplasm of lung Parkinson's disease Prostate cancer Psychotic disorder Seizure disorder Stroke Tuberculosis Heart Disease, Cancer, CAD Under 55 Years Old Physical Exam Vital Signs Vital Signs - First Documented 10/25/22 00:00 Temp 36.7 Pulse 80 Resp 22 B/P (MAP) 123/92 (102) Pulse Ox 99 O2 Delivery Room Air Capillary Refill : Less Than 3 Seconds Height, Weight, BMI Height: 5'10.00" Weight: 215lbs. 0.0oz. 97.506171aj; 32.00 BMI Method:Stated General Appearance: No Apparent Distress, WD/WN HEENT: PERRL/EOMI, Other (ABRASION TO TOP/FRONTAL AREA OF SCALP. ) Neck: Full Range of Motion, Normal Inspection, Non Tender, Supple Respiratory: Normal Breath Sounds, No Accessory Muscle Use, No Respiratory Distress, Other (PT HAS ALOT OF OLDER APPEARING BRUSING TO UPPER CHEST, AND SOME RIGHT CHEST TENDERNESS. NO CREPITANCE OR SUB Q AIR OR DEFORMITY. 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 DISORIENTED TO TIME AND SITUATION AND VERY POOR MEMORY. HE DOES PERIODICALLY YELL, WHICH IS ALSO NORMAL FOR HIM. PT IS ABLE TO CARRY ON CONVERSATION AND SPEECH IS CLEAR BUT TALKS IN A "GRUFF" MANNER. ) Skin: Normal Color, Warm/Dry, Ecchymosis (PT HAS EXTENSIVE BRUISING TO UPPER CHEST, BILATERAL ARMS, AND LOWER LEG--ALL APPEAR OLD. HE HAS DRESSINGS IN PLACE FROM PRIOR SKIN TEARS. THE ONLY RECENT WOUND IS THE MINOR ABRASION ON HIS SCALP. THERE IS NO BLEEDING, SWELLING OR BRUISING OR TENDERNESS TO THE AREA. ) Progress/Results/Core Measures Suspected Sepsis SIRS Temperature: Pulse: 80 Respiratory Rate: 22 Laboratory Tests 10/25/22 00:13: White Blood Count 6.5 Blood Pressure 123 /92 Mean: 102 Laboratory Tests 10/25/22 00:13: Creatinine 1.21, INR Comment 1.1, Platelet Count 172, Total Bilirubin 1.0 Results/Orders Lab Results Laboratory Tests Test 10/25/22 00:13 Range/Units White Blood Count 6.5 4.3-11.0 10^3/uL Red Blood Count 4.04 L 4.30-5.52 10^6/uL Hemoglobin 11.9 L 13.3-17.7 g/dL Hematocrit 36 L 40-54 % Mean Corpuscular Volume 89 80-99 fL Mean Corpuscular Hemoglobin 30 25-34 pg Mean Corpuscular Hemoglobin Concent 33 32-36 g/dL Red Cell Distribution Width 15.1 H 10.0-14.5 % Platelet Count 172 130-400 10^3/uL Mean Platelet Volume 9.3 9.0-12.2 fL Immature Granulocyte % (Auto) 2 % Neutrophils (%) (Auto) 59 42-75 % Lymphocytes (%) (Auto) 23 12-44 % Monocytes (%) (Auto) 13 H 0-12 % Eosinophils (%) (Auto) 3 0-10 % Basophils (%) (Auto) 0 0-10 % Neutrophils # (Auto) 3.8 1.8-7.8 10^3/uL Lymphocytes # (Auto) 1.5 1.0-4.0 10^3/uL Monocytes # (Auto) 0.9 0.0-1.0 10^3/uL Eosinophils # (Auto) 0.2 0.0-0.3 10^3/uL Basophils # (Auto) 0.0 0.0-0.1 10^3/uL Immature Granulocyte # (Auto) 0.1 0.0-0.1 10^3/uL Prothrombin Time 14.7 12.2-14.7 SEC INR Comment 1.1 0.8-1.4 Activated Partial Thromboplast Time 36 H 24-35 SEC Sodium Level 131 L 135-145 MMOL/L Potassium Level 4.4 3.6-5.0 MMOL/L Chloride Level 99 98-107 MMOL/L Carbon Dioxide Level 23 21-32 MMOL/L Anion Gap 9 5-14 MMOL/L Blood Urea Nitrogen 19 H 7-18 MG/DL Creatinine 1.21 0.60-1.30 MG/DL Estimat Glomerular Filtration Rate 58 BUN/Creatinine Ratio 16 Glucose Level 135 H 70-105 MG/DL Calcium Level 9.4 8.5-10.1 MG/DL Corrected Calcium 9.8 8.5-10.1 MG/DL Magnesium Level 1.9 1.6-2.4 MG/DL Total Bilirubin 1.0 0.1-1.0 MG/DL Aspartate Amino Transf (AST/SGOT) 23 5-34 U/L Alanine Aminotransferase (ALT/SGPT) 22 0-55 U/L Alkaline Phosphatase 127 40-136 U/L Total Creatine Kinase 116 30-200 U/L Creatine Kinase MB 7.6 *H <6.6 NG/ML Myoglobin 75.0 10.0-92.0 NG/ML Troponin I 0.054 H <0.028 NG/ML Total Protein 6.8 6.4-8.2 GM/DL Albumin 3.5 3.2-4.5 GM/DL My Orders Orders - MISSAEL BREAUX DO Ed Iv/Invasive Line Start (10/25/22 00:00) Monitor-Rhythm Ecg Trace Only (10/25/22 00:00) Ct Head/Cervical Spine Wo (10/25/22 00:00) Cbc With Automated Diff (10/25/22 00:00) Comprehensive Metabolic Panel (10/25/22 00:00) Creatine Kinase (10/25/22 00:00) Creatine Kinase Mb (10/25/22 00:00) Magnesium (10/25/22 00:00) Protime With Inr (10/25/22 00:00) Partial Thromboplastin Time (10/25/22 00:00) Myoglobin Serum (10/25/22 00:00) Troponin I Shadi (10/25/22 00:00) Chest 1 View, Ap/Pa Only (10/25/22 00:00) Pelvis 1 To 2 Views (10/25/22 00:00) Ct Chest/Abdomen/Pelvis Wo (10/25/22 00:06) Ekg Tracing (10/25/22 00:51) Vital Signs/I&O 10/25/22 00:00 Temp 36.7 Pulse 80 Resp 22 B/P (MAP) 123/92 (102) Pulse Ox 99 O2 Delivery Room Air Capillary Refill : Less Than 3 Seconds Blood Pressure Mean: 102 Progress Note : Progress Note VITALS ON ARRIVAL: TEMP 36.7, HR 82, BP 123/92, O2 SAT 99% ON ROOM AIR. NO DETERIORATION IN PT'S CONDITION DURING ER STAY PT DID BECOME INCREASINGLY AGITATED, YELLING, CURSING, TRYING TO GRAB STAFF, ETC. JUST PRIOR TO TRANSFER TO THE FLOOR. Diagnostic Imaging Comments CXR--PENDING RADIOLOGIST REVIEW -CHRONIC LUNG CHANGES -LOOP RECORDER IN PLACE -RIGHT RIB FRACTURES PELVIS--PENDING RADIOLOGIST REVIEW -NO ACUTE BONY INJURY CT HEAD/CERVICAL SPINE--PER [facility] VIA FAX AT 0123 -NO ACUTE INTRACRANIAL ABNORMALITY -CHRONIC CHANGES -NEGATIVE FOR ACUTE CERVICAL SPINE FRACTURE OR MALALIGNMENT -SLIGHT INDENTATION OF INFERIOR ENDPLATE ON T2 VERTEBRA THAT WAS NOT PRESENT ON PRIOR EXAM OF 04/19/2020 CT CHEST/ABDOMEN/PELVIS--PER [facility] VIA FAX AT Departure Communication (Admissions) 0155--SPOKE WITH DR. FRIAS, HOSPITALIST FOR DR. BARBOZA'S PTS, SHE ADVISES THAT THIS PT WILL NEED TO BE ADMITTED TO HOSPITALIST DUE TO PRIOR CONFLICTS WITH PT. 0158--SPOKE WITH DR. BENITEZ, HOSPITALIST, ACCEPTS PT FOR ADMIT. Impression Primary Impression: UNWITNESSED EPISODE Additional Impressions: CLOSED HEAD INJURY WITH UNKNOWN LOSS OF CONSCIUSNESS Elevated troponin SUB ACUTE LEFT RIB FRACTURES SUB ACUTE T2 COMPRESSION FRACTURE IDDM (insulin dependent diabetes mellitus) Dementia RLL PULMONARY NODULE Disposition: ADMITTED INPATIENT Condition: Stable Admissions Decision to Admit Reason: Admit from ER (General) Decision to Admit/Date: Oct 25, 2022 Time/Decision to Admit Time: 02:00 Departure-Patient Inst. Referrals: ARIES BARBOZA MD (PCP/Family) Primary Care Physician MISSAEL BREAUX DO Oct 25, 2022 00:58
[2022-10-25] MEDS ORDERED: morphine INJ 4 MG/ML 1 ML (VIAL/SYRINGE) IV PRN (04:00)
[2022-10-25] MEDS ORDERED: LORazepam INJ 2 MG/ML (ATIVAN) VIAL IV PRN (04:00)
[2022-10-25] MEDS ORDERED: ONDANSETRON 4 MG/2 ML (SDV) Z0FRAN IVP PRN (04:00)
[2022-10-25] MEDS ORDERED: ACETAMINOPHEN 500 MG TAB (TYLENOL) PO PRN ×2 (04:00→16:30)
[2022-10-25] MEDS: inSUlin ASPART (NovoLOG) 1 UNIT/0.01 ML (CHARGE PER UNIT) SC SCH ×4 (06:11→21:39)
[2022-10-25] MEDS: CATHETER FLUSH 10 ML SYR IVP SCH ×3 (06:11→21:40)
--- NOTE | 2022-10-25 07:02 | Diagnostic Imaging Report ---
Indication: Fall with head and neck pain. TECHNIQUE: Multiple contiguous axial images were obtained through the brain and cervical spine without the use of intravenous contrast. Sagittal and coronal reformations through the cervical spine were then performed. Auto Exposure Controls were utilized during the CT exam to meet ALARA standards for radiation dose reduction. Comparison to 04/19/2020. CT head findings: There are extensive atrophic changes and chronic ischemic changes in the deep white matter. There is no acute hemorrhage or subdural or epidural collection. Ventricles are normal in size for age. There is no acute territorial ischemia. There are vascular calcifications noted. Calvarial windows are unremarkable. CT cervical spine findings: There was no evidence of cervical spine fracture. There is no subluxation or malalignment. There is extensive diffuse degenerative change with disc space narrowing throughout all levels and ossified formation and diffuse facet degenerative change. IMPRESSION: CT head shows no acute intracranial abnormality. There is marked atrophic change and chronic changes in deep white matter. CT cervical spine shows extensive degenerative findings with no acute fracture or subluxation. Dictated by: Dictated on workstation # [id number]
--- NOTE | 2022-10-25 07:39 | Diagnostic Imaging Report ---
INDICATION: Fall with chest pain. Frontal chest obtained at 1244 a.m. compared to 10/10/2022 Patient's had aortic valve replacement. There is cardiomegaly. There is mild central vascular prominence which appears chronic. There is no focal infiltrate or pneumothorax or pleural fluid. IMPRESSION: Chronic changes with aortic valve replacement and chronic vascular congestion. No acute consolidation or pleural fluid. Dictated by: Dictated on workstation # [id number]
--- NOTE | 2022-10-25 07:40 | Diagnostic Imaging Report ---
INDICATION: Pelvic pain post fall AP pelvis obtained at 1246 a.m. No fracture or acute bony abnormality seen. There are vascular calcifications noted. IMPRESSION: No acute fracture. Dictated by: Dictated on workstation # [id number]
--- NOTE | 2022-10-25 08:30 | Diagnostic Imaging Report ---
PROCEDURE: CT chest, abdomen, and pelvis without contrast. TECHNIQUE: Multiple contiguous axial images were obtained through the chest, abdomen, and pelvis without the use of intravenous contrast. Auto Exposure Controls were utilized during the CT exam to meet ALARA standards for radiation dose reduction. INDICATION: Fall with chest, abdominal and pelvic pain. Correlation is made with prior CT chest from 09/27/2022. CT CHEST: No definite mediastinal hematoma is identified. No significant pericardial or pleural fluid is identified. There is some pleural thickening on the left. No pulmonary contusion or pneumothorax is detected. There is a slightly irregular nodule in the anterior right lower lobe measuring 9 mm similar to prior CT. Previously noted fractures involving the left 7th, 8th and 9th ribs are again noted. There appear to be fractures of the left 10th and 11th ribs more medially near the costovertebral junctions as well. Old right-sided rib fractures are noted. T7, T8 and T12 compression fractures appear similar to prior exam. IMPRESSION: Multiple left-sided rib fractures, as described and were seen on a recent CT from 09/27/2022. No pneumothorax or pulmonary contusion is identified. There is a 9 mm irregular right lower lobe pulmonary nodule. Small lung neoplasm cannot be entirely excluded. CT abdomen and pelvis: The liver, gallbladder and spleen are unremarkable. The pancreas, adrenal glands and kidneys are unremarkable. Aorta is heavily calcified but nonaneurysmal. Bowel loops are normal caliber. There is no free fluid or evidence of hemoperitoneum. The bladder and prostate are unremarkable. The L4 compression fracture appears similar to CT from 09/27/2022. IMPRESSION: No evidence of abdominal or pelvic visceral injury. Dictated by: Dictated on workstation # [id number]
[2022-10-25] MEDS ORDERED: ASPIRIN E.C. 81 MG (ECOTRIN) TAB PO SCH (09:00)
--- NOTE | 2022-10-25 12:44 | History & Physical-Hospitalist ---
History of Present Illness HPI/Chief Complaint Pt is 89-year-old male known to me from multiple previous admissions including recent one this month who presented to the emergency department due to a fall. He had recently admitted to alf and per his daughter he was doing very well but figured out how to work his lift chair and tried to stand up and fell yesterday. This was unwitnessed. He is on blood thinners so was brought to the emergency department for evaluation as he had an abrasion on the top of his head. CT head was done and was negative for intracranial hemorrhage. CT abdomen pelvis was done as well and was negative for acute findings though did show old rib fractures and compression fractures. He was unable to ambulate and was found to have a mildly elevated troponin so was admitted for further evaluation. This morning he is sleeping soundly and while he does wake up and look around he did not participate in the exam. This is off from his baseline and I have previously taken care of him as he can be confused but is normally quite talkative. Source: patient Date Seen 10/25/22 Time Seen by a Provider: 08:30 Attending Physician Carolyn Parmar MD PCP Admitting Physician: Joaquin Ward MD Attending Physician: Carolyn Parmar MD Referring Physician Date of Admission Oct 25, 2022 at 02:51 Home Medications & Allergies Home Medications Reviewed patient Home Medication Reconciliation performed by pharmacy medication reconciliations motorsports technician and/or nursing. Patients Allergies have been reviewed. Allergies Allergies Coded Allergies No Known Drug Allergies (Unverified06/06/17) Past Sfkfvyq-Bpafqc-Umbfai Hx Patient Social History Tobacco Use?: No Smoking Status: Unknown if Ever Smoked Smokeless Tobacco Frequency: Unknown if Ever Used Use of E-Cig and/or Vaping dev: No Use of E-Cig and/or Vaping Domingo: Unknown if Ever Used Substance use?: Unable to obtain Alcohol Use?: No Pt feels they are or have been: No Immunizations Up To Date Tetanus Booster (TDap): More Than 5 Years Hepatitis A: No Hepatitis B: No PED Vaccines UTD: Yes Seasonal Allergies Seasonal Allergies: No Current Status Advance Directives: Unable to obtain Communicates: Verbally Primary Language: Yi Preferred Spoken Language: Yi Is interpretation needed?: No Implanted or Applied Medical D: Orthopedic hardware Past Medical History Surgeries: Cardiac, Ear Surgery, Orthopedic, Valve Replacement Currently Using CPAP: No Currently Using BIPAP: No Angina, Chronic Edema/Swelling, Coronary Artery Disease, Heart Attack, High Cholesterol, Hypertension, Peripheral Vascular, Valvular Heart Disease Dementia, Neuropathy Sexually Transmitted Disease: No HIV/AIDS: No Gout Diabetes, Insulin dep Cataract Loss of Vision: Denies Hearing Impairment: Hard of Hearing Skin, Melanoma Did You Recieve Any Treatments: No Sleep Difficulties Blood Disorders: No Adverse Reaction/Blood Tranf: No Family Medical History Cancer 09 SISTER, Onset:60 years & older (OVARIAN CANCER) 09 SISTER, Onset:40's - 50 (BREAST CANCER) Chest pain 03 FATHER, Onset:50's - 60 ([place]) Dementia 03 MOTHER, Onset:60 years & older Family history: Alzheimer's disease 03 MOTHER, Onset:60 years & older Family history: Arthritis 03 FATHER, Onset:40's - 50 Family history: Breast disease 09 SISTER, Onset:40's - 50 ( OF BREAST CANCER) Family history: Cardiovascular disease 03 FATHER, Onset:40's - 50 Family history: Hypertension 03 FATHER, Onset:40's - 50 Heart disease 03 FATHER, Onset:40's - 50 Hypercholesterolemia 03 FATHER, Onset:40's - 50 Myocardial infarction 03 FATHER, Onset:40's - 50 Visual impairment 09 SISTER, Onset:40's - 50 No Family History of: Abdominal aortic aneurysm Rick's disease Alcoholism Aphasia Cancer of colon Cataract Congenital heart disease Congestive heart failure Cystic fibrosis Dysphagia Family history: Allergy Family history: Asthma Family history: Coronary thrombosis Family history: Diabetes mellitus Family history: Gastrointestinal disease Family history: Glaucoma Family history: Osteoporosis Family history: Thyroid disorder Headache Hearing loss Hereditary disease History of - anemia History of - disorder History of - respiratory disease History of drug abuse Human immunodeficiency virus (HIV) seropositivity Infertile Kidney disease Malignant neoplasm of lung Parkinson's disease Prostate cancer Psychotic disorder Seizure disorder Stroke Tuberculosis Heart Disease, Cancer, CAD Under 55 Years Old Review of Systems Constitutional: see HPI Physical Exam Physical Exam Vital Signs Vital Signs - First Documented 10/25/22 10/26/22 00:00 08:26 Temp 36.7 Pulse 80 Resp 22 B/P (MAP) 123/92 (102) Pulse Ox 99 O2 Delivery Room Air O2 Flow Rate 0.00 Capillary Refill : Less Than 3 Seconds Height, Weight, BMI Height: 5'10.00" Weight: 215lbs. 0.0oz. 97.983735op; 26.81 BMI Method:Stated General Appearance: Chronically ill Respiratory: Lungs Clear, No Respiratory Distress Cardiovascular: Regular Rate, Rhythm, No Murmur Gastrointestinal: Normal Bowel Sounds, Non Tender, Soft Extremity: Pedal Edema Neurologic/Psychiatric: Other (arouses when spoken to but did not speak) Results Results/Procedures Labs Laboratory Tests 10/25/22 00:13 10/26/22 05:20 Patient resulted labs reviewed. Assessment/Plan Admission Diagnosis Elevated troponin Admission Status: Inpatient Order (span 2 midnights) Reason for Inpatient Admission: see below Assessment and Plan Elevated troponin CAD PAD Continue home meds Troponin essentially stable Cardiology consulted, appreciate recs Fall Old compression fracture Recent rib fractures Dementia Trauma imaging- negative for acute findings did show old known rib fracture and previously seen compression fractures IS ordered PT/OT MAT protocol HTN HLD A-fib NIDDMII Dementia No acute needs, continue home meds as appropriate when med rec done DVT ppx: On eliquis Diagnosis/Problems Diagnosis/Problems (1) Fracture of T12 vertebra Status: Acute (2) Fall on same level Status: Acute (3) Debility Status: Acute (4) Weakness (5) Afib Status: Chronic (6) PAD (peripheral artery disease) (7) Essential (primary) hypertension Status: Chronic (8) CAD (coronary artery disease) Status: Chronic (9) Insulin dependent diabetes mellitus Status: Chronic (10) Elevated troponin Status: Acute LENNIE GREEN MD Oct 25, 2022 12:44
--- NOTE | 2022-10-25 13:32 | Consultation-Cardiology ---
HPI-Cardiology Cardiology Consultation: Date of Consultation 10/25/22 Date of Admission Attending Physician Carolyn Parmar MD Admitting Physician Admitting Physician: Joaquin Ward MD Attending Physician: Carolyn Parmar MD Consulting Physician ANDRESSA APONTE MD HPI: Time Seen by a Provider: 14:00 The patient is a pleasant 87-year-old gentleman who has been having unsteady gait for at least the past several weeks to months. He has had recent falls including rib fractures. Lives in an assisted care living facility long- term but was recently in a assisted facility for physical therapy and rehab. There, yesterday he became unsteady while trying to get out of a chair and sustained a mechanical fall. He is currently confused but states that there was no chest pain, palpitations, or shortness of breath. No syncope reported. Troponins were checked and a borderline abnormal at 0.[address] segment depressions in the anterolateral leads which are new as compared to his EKG from 08/14/2021. Of note, he has a history of coronary artery disease and paroxysmal atrial fibrillation. He is currently on triple therapy with cilostazol, low-dose apixaban and low-dose aspirin. Troponin 0.05 x 2 Imaging: EKG 10/25/2022 self reviewed. Normal sinus rhythm. Poor progression of R waves in precordial leads. T wave inversions and mild ST segment depressions anterolateral leads EKG 08/14/2021 self reviewed. Normal sinus rhythm. Concern for anteroseptal myocardial infarction. T wave inversions and ST segment depressions seen on 10/25/2022 are not noted on this EKG Stress test January 2021 (regadenoson myocardial perfusion stress test with technetium 99 sestamibi imaging). Left ventricular ejection fraction 43%. No significant ischemia Lower extremity angiography 2017. Severe peripheral arterial disease, being treated medically in the absence of critical limb ischemia Transthoracic echo 2012. Normal left ventricular ejection fraction of 55% with posterobasal hypokinesia Review of Systems-Cardiology All Other Systems Reviewed Negative Unless Noted: Yes DQN-Ppiyeb-Zbtllb Hx Patient Social History Smoking Status: Unknown if Ever Smoked Alcohol Use?: No Pt feels they are or have been: No Past Medical History PMH As described under Assessment. Family Medical History Family Medical History: Family h/o father having CAD and HTN. Family History: Cancer 09 SISTER, Onset:60 years & older (OVARIAN CANCER) 09 SISTER, Onset:40's - 50 (BREAST CANCER) Chest pain 03 FATHER, Onset:50's - 60 (AR) Dementia 03 MOTHER, Onset:60 years & older Family history: Alzheimer's disease 03 MOTHER, Onset:60 years & older Family history: Arthritis 03 FATHER, Onset:40's - 50 Family history: Breast disease 09 SISTER, Onset:40's - 50 ( OF BREAST CANCER) Family history: Cardiovascular disease 03 FATHER, Onset:40's - 50 Family history: Hypertension 03 FATHER, Onset:40's - 50 Heart disease 03 FATHER, Onset:40's - 50 Hypercholesterolemia 03 FATHER, Onset:40's - 50 Myocardial infarction 03 FATHER, Onset:40's - 50 Visual impairment 09 SISTER, Onset:40's - 50 No Family History of: Abdominal aortic aneurysm Menard's disease Alcoholism Aphasia Cancer of colon Cataract Congenital heart disease Congestive heart failure Cystic fibrosis Dysphagia Family history: Allergy Family history: Asthma Family history: Coronary thrombosis Family history: Diabetes mellitus Family history: Gastrointestinal disease Family history: Glaucoma Family history: Osteoporosis Family history: Thyroid disorder Headache Hearing loss Hereditary disease History of - anemia History of - disorder History of - respiratory disease History of drug abuse Human immunodeficiency virus (HIV) seropositivity Infertile Kidney disease Malignant neoplasm of lung Parkinson's disease Prostate cancer Psychotic disorder Seizure disorder Stroke Tuberculosis Allergies and Home Medications Allergies Coded Allergies: No Known Drug Allergies (Unverified , 06/06/17) Patient Home Medication List Home Medication List Reviewed: Yes Acetaminophen (Tylenol Extra Strength) 500 Mg Tablet, 1,000 MG PO Q6H PRN for PAIN-MILD (1-4) Prescribed by: ADELITA MARTINS on 10/16/22 1000 Apixaban (Eliquis) 2.5 Mg Tablet, 2.5 MG PO BID Prescribed by: ADELITA MARTINS on 10/16/22 1000 Aspirin (Aspirin EC) 81 Mg Tablet.dr, 81 MG PO DAILY Prescribed by: ADELITA MARTINS on 10/16/22 1000 Atorvastatin Calcium (Atorvastatin Calcium) 20 Mg Tablet, 20 MG PO HS Prescribed by: ADELITA MARTINS on 10/16/22 1000 Calcium Carbonate (Calcium) 500 Mg Calcium (1250 Mg) Tablet, 500 MG PO DAILY Prescribed by: ADELITA MARTINS on 10/16/22 1000 Carvedilol (Carvedilol) 3.125 Mg Tablet, 3.125 MG PO BID Prescribed by: ADELITA MARTINS on 10/16/22 1000 Cephalexin (Cephalexin) 250 Mg Capsule, 500 MG PO BID Prescribed by: ADELITA MARTINS on 10/16/22 1000 Cilostazol (Cilostazol) 100 Mg Tablet, 100 MG PO BID Prescribed by: ADELITA MARTINS on 10/16/22 1000 Diltiazem HCl (Diltiazem 24Hr ER) 180 Mg Cap.er.24h, 180 MG PO DAILY Prescribed by: ADELITA MARTINS on 10/16/22 1000 Hydrocodone/Acetaminophen (Hydrocodone-Acetamin 5-325 mg) 5 Mg-325 Mg Tablet, 1 EA PO Q4H PRN for PAIN-MODERATE (5-7) Prescribed by: ADELITA MARTINS on 10/16/22 1001 Insulin Detemir (Levemir Flexpen) 100 Unit/Ml (3 Ml) Insuln.pen, 10 UNITS SC 1600 AT EVENING MEAL Prescribed by: ADELITA MARTINS on 10/16/22 1000 Loperamide HCl (Imodium A-D) 2 Mg Tablet, 2-4 MG PO UD Prescribed by: ADELITA MARTINS on 10/16/22 1000 Meloxicam (Meloxicam) 15 Mg Tablet, 15 MG PO DAILY PRN for PAIN-BREAKTHROUGH Prescribed by: ADELITA MARTINS on 10/16/22 1000 Methyl Salicylate/Menthol (Salonpas Patch) 10 %-3 % Adh..patch, 1 EACH TP DAILY Prescribed by: ADELITA MARTINS on 10/16/22 1000 Multivitamin (Multivitamin) 1 Each Tablet, 1 EACH PO DAILY Prescribed by: ADELITA MARTINS on 10/16/22 1000 [place]-3 Fatty Acids/Fish Oil ([place] 3 1,000 mg Softgel) 300 Mg-1,000 Mg Capsule, 1 EACH PO DAILY Prescribed by: ADELITA MARTINS on 10/16/22 1000 Ramipril (Ramipril) 5 Mg Capsule, 5 MG PO DAILY Prescribed by: ADELITA MARTINS on 10/16/22 1000 Exam Vital Signs Vital Signs Date Time Temp Pulse Resp B/P (MAP) Pulse Ox O2 Delivery O2 Flow Rate FiO2 10/25/22 13:24 35.8 87 100 10/25/22 11:57 21 133/78 (96) Room Air Physical Exam Patient is awake but confused. S1 and S2 regular. No murmur S3 or S4 Chest clear to auscultation No jugular venous distention Neurological examination grossly nonfocal No lower extremity edema Labs Laboratory Tests Test 10/25/22 00:13 10/25/22 04:55 10/25/22 11:36 Range/Units White Blood Count 6.5 4.3-11.0 10^3/uL Red Blood Count 4.04 L 4.30-5.52 10^6/uL Hemoglobin 11.9 L 13.3-17.7 g/dL Hematocrit 36 L 40-54 % Mean Corpuscular Volume 89 80-99 fL Mean Corpuscular Hemoglobin 30 25-34 pg Mean Corpuscular Hemoglobin Concent 33 32-36 g/dL Red Cell Distribution Width 15.1 H 10.0-14.5 % Platelet Count 172 130-400 10^3/uL Mean Platelet Volume 9.3 9.0-12.2 fL Immature Granulocyte % (Auto) 2 % Neutrophils (%) (Auto) 59 42-75 % Lymphocytes (%) (Auto) 23 12-44 % Monocytes (%) (Auto) 13 H 0-12 % Eosinophils (%) (Auto) 3 0-10 % Basophils (%) (Auto) 0 0-10 % Neutrophils # (Auto) 3.8 1.8-7.8 10^3/uL Lymphocytes # (Auto) 1.5 1.0-4.0 10^3/uL Monocytes # (Auto) 0.9 0.0-1.0 10^3/uL Eosinophils # (Auto) 0.2 0.0-0.3 10^3/uL Basophils # (Auto) 0.0 0.0-0.1 10^3/uL Immature Granulocyte # (Auto) 0.1 0.0-0.1 10^3/uL Prothrombin Time 14.7 12.2-14.7 SEC INR Comment 1.1 0.8-1.4 Activated Partial Thromboplast Time 36 H 24-35 SEC Sodium Level 131 L 135-145 MMOL/L Potassium Level 4.4 3.6-5.0 MMOL/L Chloride Level 99 98-107 MMOL/L Carbon Dioxide Level 23 21-32 MMOL/L Anion Gap 9 5-14 MMOL/L Blood Urea Nitrogen 19 H 7-18 MG/DL Creatinine 1.21 0.60-1.30 MG/DL Estimat Glomerular Filtration Rate 58 BUN/Creatinine Ratio 16 Glucose Level 135 H 70-105 MG/DL Calcium Level 9.4 8.5-10.1 MG/DL Corrected Calcium 9.8 8.5-10.1 MG/DL Magnesium Level 1.9 1.6-2.4 MG/DL Total Bilirubin 1.0 0.1-1.0 MG/DL Aspartate Amino Transf (AST/SGOT) 23 5-34 U/L Alanine Aminotransferase (ALT/SGPT) 22 0-55 U/L Alkaline Phosphatase 127 40-136 U/L Total Creatine Kinase 116 30-200 U/L Creatine Kinase MB 7.6 *H <6.6 NG/ML Myoglobin 75.0 10.0-92.0 NG/ML Troponin I 0.054 H 0.053 H <0.028 NG/ML Total Protein 6.8 6.4-8.2 GM/DL Albumin 3.5 3.2-4.5 GM/DL Triglycerides Level 85 <150 MG/DL Cholesterol Level 126 < 200 MG/DL LDL Cholesterol Direct 82 1-129 MG/DL VLDL Cholesterol 17 5-40 MG/DL HDL Cholesterol 36 L 40-60 MG/DL Glucometer 121 H 70-110 MG/DL ECG Impression ECG Initial ECG Impression Date: Oct 25, 2022 A/P-Cardiology Assessment/Admission Diagnosis Recurrent falls. Patient has been having unsteady gait for the past few weeks to months. Recent rib fractures and old compression fractures in the spine. No history of palpitations, chest pain, presyncope or syncope. Borderline abnormal troponin, with new T wave inversions since EKG from 2021. On medical treatment for coronary artery disease with aspirin, beta-blockers and statin. Patient has no cardiac symptoms. Will check transthoracic echo. Due to recent falls, I will discontinue aspirin (continue low-dose apixaban and cilostazol) to avoid triple therapy. H/O PAF - Currently SR and on oral diltiazem. Continue low-dose diltiazem - - documented on ILR transmissions of Apr and May 2020 -On apixaban for stroke prophylaxis. Lower dose because he is also on antiplatelet agents and now with unsteady gait. Near-syncope in Mar 2020 - s/p ILR implant on 04/20/20 - ILR showing brief WCT in early Nov 2020: probaly A fib, but cannot exclude NSVT. Continue beta-blockers s/p TAVR at on 08/07/[address] Valente - Echo of 04/20/20: LVEF 50%, mild to mod dilatation of LA, mild to mod MR, bioprosthetic AoV with peak grad 20 mmHg and mean grad 11 mmHg, mild tomod TR, RVSP 30 mmHg - Echo of 02-01-21: LVEF 45-50%: mod conc LVH, dilated LA, bioprostheitc aoric valve with peak grad 28 and mean grad 15 mmHg Hypertension - controlled Poor balance - intermittent noncompliance with supportive devices such as cane/walker, recent falls at home CAD - H/O CECY to the LAD at at time of cardiac cath on 07/10/[address] Roman - MPI 01-31-21: mild to mod cardiomegaly with mild to mod global hypokinesis and LVEF 43%, no ischemia or infarction Carotid dz - H/o right carotid stent. - Mild carotid arterial disease without evidence of hemodynamic significance on carotid u/s of 08/22/20 PAD: - Peripheral angiogram was done on 12/03/[address] Palafox which demonstrated moderate calcified disease segment in the right common iliac artery. Very tortuous right distal common iliac artery and external iliac artery. Small AV fistula noted in the distal right SFA filling deep saphenous vein. Mild diffuse disease in the right SFA. No significant disease in the right popliteal artery. At least moderate calcification is noted in the right SFA and popliteal artery. Severe stenosis in the right TP trunk with heavy calcification. Single-vessel runoff below the knee which is an anterior tibial artery which is occluded in the distal segment. Diffusely diseased severe deep peroneal and posterior tibial artery with heavy calcification with no contribution to flow to the foot. In the left lower extremity there was no significant disease in the left common and external iliac artery. Severe ostial stenosis of the left internal iliac artery. Moderate calcified stenosis is noted in the left common femoral artery. Moderate to severe stenosis in the proximal left SFA. Moderate disease calcified in the mid, distal SFA and proximal popliteal artery. Moderate to severe calcified is disease segment in the distal left popliteal artery. 1 vessel runoff below the left knee which is very likely a posterior tibial artery with subtotal occlusion in the proximal segment. Total occlusion of the deep peroneal and anterior tibial artery. - Last HELADIO done on 05/07/[address] Palafox which showed severely abnormal bilateral HELADIO and TBI. Right HELADIO 0.46, TBI 0.25. Left HELADIO 0.45, TBI 0.35. No resting pain or nonhealing ulcers with single-vessel runoff bilaterally. Managed conservatively Hyperlipidemia - statin - managed by PCP Dementia. Has been living in assisted living for a while. ANDRESSA APONTE MD Oct 25, 2022 13:32
[2022-10-25] MEDS ORDERED: RT-ALBUTEROL/IPRATROPIUM 3 ML (DUONEB) VIAL INH PRN (13:45)
--- NOTE | 2022-10-25 14:09 | Physical Therapy Evaluation ---
PT Evaluation-General Medical Diagnosis Admission Date Oct 25, 2022 at 02:51 Medical Diagnosis: unwitnessed episode/head injury/elevated troponin Onset Date: Oct 25, 2022 Therapy Diagnosis Therapy Diagnosis: generalized weakness/debility Height/Weight Height (Feet): 5 Height (Inches): 10.00 Weight (Pounds): 215 Weight (Ounces): 0.0 Precautions Precautions/Isolations: Fall Prevention, Standard Precautions Referral Physician: Amalia Reason for Referral: Evaluation/Treatment Medical History Pertinent Medical History: CAD, DM, Dementia, Heart Failure, HTN, MS, Neuropathy, PVD Current History EMS from [place] secondary to unwitnessed fall Reviewed History: Yes Social History Home: Care Home Prior Prior Level of Function SCALE: Activities may be completed with or without assistive devices. 6-Whtvpjpmpi-viiudsq completes the activity by him/herself with no assistance from a helper. 5-Set-up or Clean-up Assistance-helper sets up or cleans up; patient completes activity. [place] assists only prior to or following the activity. 4-Supervision or Touching Assistance-helper provides verbal cues and/or touching/steadying and/or contact guard assistance as patient completes activity. Assistance may be provided throughout the activity or intermittently. 3-Partial/Moderate Assistance-helper does LESS THAN HALF the effort. [place] lifts, holds or supports trunk or limbs, but provides less than half the effort. 2-Substantial/Maximal Assistance-helper does MORE THAN HALF the effort. [place] lifts or holds trunk or limbs and provides more than half the effort. 6-Bionyxplz-fynvyi does ALL the effort. Patient does none of the effort to complete the activity. Or, the assistance of 2 or more helpers is required for the patient to complete the activity. If activity was not attempted, code reason: 7-Patient Refused. 9-Not Applicable-not attempted and the patient did not perform the activity before the current illness, exacerbation or injury. 10-Not Attempted due to Environmental Limitations-(lack of equipment, weather restraints, etc.). 88-Not Attempted due to Medical Conditions or Safety Concerns. Bed Mobility: 1 Transfers (B,C,W/C): 1 Gait: 9 PT Evaluation-Current Subjective Patient is confused. Agrees to up to recliner. Family present. Objective Patient Orientation: Confused ROM/Strength ROM Lower Extremities bilateral LE WFL Strength Lower Extremities 3-/5 grossly bilateral LE ( no formal testing due to patient's inability to follow simple direction) Integumentary/Posture Integumentary refer to nursing notes Bowel Incontinence: Yes Bladder Incontinence: Yes Posture WFL Neuromuscular (Tone, Coordination, Reflexes) severely diminished coordination with noted lean to left Sensory Hearing: Impaired Transfers Roll Left to Right (QC): 1 Lying to Sitting/Side of Bed(Q: 1 Sit to Stand (QC): 1 Chair/Zpa-hm-Wzdkd Xfer(QC): 1 dependent SPT bed to recliner with blocking knees and gait belt use Balance Sitting Static: Poor Assessment/Needs Patient will benefit from skilled PT to address functional strength and mobility to improve current LOF. Patient is currently dependent assist of 2 with all mobility. Rehab Potential: Poor PT [facility] Goals [facility] Goals PT Spray Crew Goals Time Frame: Nov 03, 2022 Roll Left & Right (QC): 2 Sit to Lying (QC): 2 Lying-Sitting on Side/Bed(QC): 2 Sit to Stand (QC): 2 Chair/Mee-cz-Heybm Xfer(QC): 2 PT Plan Problem List Problem List: Activity Tolerance, Functional Strength, Safety, Balance, Gait, Transfer, Bed Mobility Treatment/Plan Treatment Plan: Continue Plan of Care Treatment Plan: Bed Mobility, Education, Functional Activity Romy, Functional Strength, Gait, Safety, Therapeutic Exercise, Transfers Treatment Duration: Nov 03, 2022 Frequency: 5 times per week Estimated Hrs Per Day: .25 hour per day Time Time In: 1335 Time Out: 1351 DATE: Oct 25, 2022 Total Billed Treatment Time: 16 Total Billed Treatment 1 visit [facility] 16 min OSCAR SR PT Oct 25, 2022 14:09
[2022-10-25] MEDS ORDERED: CARB15DR87 OT (15:05)
[2022-10-25] MEDS ORDERED: NON-FORMULARY MEDICATION 1 EA EA (Meloxicam 15 MG) PO PRN (16:30)
[2022-10-25] MEDS ORDERED: HYDROcodone/APAP 5 MG/325 MG (LORTAB) TAB PO PRN (16:30)
[2022-10-25] MEDS ORDERED: NON-FORMULARY MEDICATION 1 EA EA (Loperamide HCl (Imodium A-D) 2 MG) PO SCH (16:30)
[2022-10-25] MEDS ORDERED: LOPERAMIDE 2 MG (IMODIUM) TABLET PO PRN (16:45)
[2022-10-25] MEDS ORDERED: MELOXICAM 7.5 MG (MOBIC) TABLET PO PRN (16:45)
[2022-10-25] MEDS ORDERED: APIXABAN 2.5 MG (ELIQUIS) TABLET PO SCH (21:00)
[2022-10-25] MEDS ORDERED: NON-FORMULARY MEDICATION 1 EA EA (Cilostazol 100 MG) PO SCH (21:00)
[2022-10-25] MEDS: CARBAM PEROXIDE 6.5% 15 ML DROPS (DEBROX) OT SCH (21:39)
[2022-10-25] MEDS: APIXABAN 2.5 MG (ELIQUIS) TABLET PO SCH (21:39)
[2022-10-26 03:56] VITALS: BP 146/96
[2022-10-26 05:52] LABS: HEMATOCRIT 36 % (40-54); HEMOGLOBIN 11.9 g/dL (13.3-17.7); MEAN CORPUSCULAR HEMOGLOBIN 30 pg (25-34); MEAN CORPUSCULAR HGB CONC 34 g/dL (32-36); MEAN CORPUSCULAR VOLUME 89 fL (80-99); MEAN PLATELET VOLUME 9.6 fL (9.0-12.2); PLATELET COUNT 158 10^3/uL (130-400); WHITE BLOOD COUNT 6.1 10^3/uL (4.3-11.0)
[2022-10-26] MEDS: CATHETER FLUSH 10 ML SYR IVP SCH ×3 (05:59→21:37)
[2022-10-26 06:03] LABS: POTASSIUM 3.9 MMOL/L (3.6-5.0)
[2022-10-26 06:04] LABS: CALCIUM 9.1 MG/DL (8.5-10.1)
[2022-10-26 06:08] LABS: CREATININE SERUM 0.88 MG/DL (0.60-1.30)
[2022-10-26] MEDS: inSUlin ASPART (NovoLOG) 1 UNIT/0.01 ML (CHARGE PER UNIT) SC SCH ×4 (06:56→21:33)
[2022-10-26 07:08] VITALS: BP 146/96
[2022-10-26] MEDS ORDERED: NON-FORMULARY MEDICATION 1 EA EA (Methyl Salicylate/Menthol (Salonpas Patch) 1 EACH) TP SCH (09:00)
[2022-10-26] MEDS ORDERED: RAMIPRIL 5 MG PO SCH (09:00)
[2022-10-26] MEDS ORDERED: NON-FORMULARY MEDICATION 1 EA EA (Calcium Carbonate (Calcium) 500 MG) PO SCH (09:00)
[2022-10-26] MEDS ORDERED: NON-FORMULARY MEDICATION 1 EA EA (Multivitamin 1 EACH) PO SCH (09:00)
--- NOTE | 2022-10-26 09:54 | Physical Therapy Daily Note ---
PT Daily Note-Current Subjective Patient very confused and agrees to up to recliner for breakfast. Patient requires redirection to remain on task. Pain Section J - Health Conditions 1. Rarely or not at all 2. Occasionally 3. Frequently 4. Almost constantly 8. Unable to answer Pain Effect on Sleep: 8 Pain Interference with Therapy: 8 Pain Interference w/Day-to-Day: 8 Mental Status Patient Orientation: Confused Transfers SCALE: Activities may be completed with or without assistive devices. 3-Zyulewnijm-ebexhdj completes the activity by him/herself with no assistance from a helper. 5-Set-up or Clean-up Assistance-helper sets up or cleans up; patient completes activity. [place] assists only prior to or following the activity. 4-Supervision or Touching Assistance-helper provides verbal cues and/or touching/steadying and/or contact guard assistance as patient completes activity. Assistance may be provided throughout the activity or intermittently. 3-Partial/Moderate Assistance-helper does LESS THAN HALF the effort. [place] lifts, holds or supports trunk or limbs, but provides less than half the effort. 2-Substantial/Maximal Assistance-helper does MORE THAN HALF the effort. [place] lifts or holds trunk or limbs and provides more than half the effort. 0-Bxhajxswy-piovgb does ALL the effort. Patient does none of the effort to complete the activity. Or, the assistance of 2 or more helpers is required for the patient to complete the activity. If activity was not attempted, code reason: 7-Patient Refused. 9-Not Applicable-not attempted and the patient did not perform the activity before the current illness, exacerbation or injury. 10-Not Attempted due to Environmental Limitations-(lack of equipment, weather restraints, etc.). 88-Not Attempted due to Medical Conditions or Safety Concerns. Lying to Sitting/Side of Bed(Q: 3 Sit to Stand (QC): 3 Chair/Ggb-pp-Kupui Xfer(QC): 3 Gait Training Distance: 10' Walk 10 feet (QC): 3 Gait Assistive Device: FWW Assessment Patient up to recliner with breakfast in situ. Patient requires continuous redi rection to remain on task. Patient has live sitter present. PT Morphologist Goals Morphologist Goals PT [facility] Goals Time Frame: Nov 03, 2022 Roll Left & Right (QC): 2 Sit to Lying (QC): 2 Lying-Sitting on Side/Bed(QC): 2 Sit to Stand (QC): 2 Chair/Ejw-uc-Zmzkp Xfer(QC): 2 PT Plan Treatment/Plan Treatment Plan: Continue Plan of Care Treatment Plan: Bed Mobility, Education, Functional Activity Romy, Functional Strength, Gait, Safety, Therapeutic Exercise, Transfers Treatment Duration: Nov 03, 2022 Frequency: 5 times per week Estimated Hrs Per Day: .25 hour per day Time Time In: 936 Time Out: 946 DATE: Oct 26, 2022 Total Billed Treatment Time: 10 Total Billed Treatment 1 visit FA 10 min OSCAR SR PT Oct 26, 2022 09:54
[2022-10-26] MEDS: CALCIUM CARBONATE 500 MG (TUMS) TAB.CHEW PO SCH (09:58)
[2022-10-26] MEDS: OMEGA 3 (FISH OIL) 1000 MG CAP PO SCH (09:58)
[2022-10-26] MEDS: MULTIVIT W/MINERALS TAB (THERAGRAN M) PO SCH (09:58)
[2022-10-26] MEDS: METHYL SALICYLATE/MENTHOL (BENGAY, MUSCLE RUB) 3 OZ TUBE TP SCH (09:58)
[2022-10-26] MEDS: APIXABAN 2.5 MG (ELIQUIS) TABLET PO SCH ×2 (09:58→21:32)
[2022-10-26] MEDS: CARBAM PEROXIDE 6.5% 15 ML DROPS (DEBROX) OT SCH ×2 (09:59→21:33)
[2022-10-26] MEDS: RAMIPRIL 2.5 MG (ALTACE) CAP PO SCH (10:00)
--- NOTE | 2022-10-26 10:47 | Occupational Therapy Eval ---
OT Evaluation-General/PLF Medical Diagnosis Admission Date Oct 25, 2022 at 02:51 Medical Diagnosis: unwitnessed episode/head injury/elevated troponin Onset Date: Oct 25, 2022 Therapy Diagnosis Therapy Diagnosis: weakness, confusion Height/Weight Height (Feet): 5 Height (Inches): 10.00 Weight (Pounds): 215 Weight (Ounces): 0.0 Precautions Precautions/Isolations: Fall Prevention (live sitter), Standard Precautions Safety Interventions: Bed Exit Alarm (chair alarm added w/ therapy session) Weight Bear Status Weight Bearing Restriction: Full Weight Bearing Location Restriction: LE Bilateral, UE Bilateral Referral Physician: Amalia Referral Reason: Activity Tolerance, Self Care, Evaluation/Treatment, Strengthening/ROM Medical History Pertinent Medical History: CAD, DM, Dementia, Heart Failure, HTN, [place], Neuropathy, PVD Additional Medical History VIA [facility] FROM VIA [facility]. [facility] RN REPORTS UNWITNESSED FALL AT 1950 LAST NIGHT, STATES PT HIT HEAD, ABRASION NOTED TO TOP OF HEAD. PT C/O LLQ PAIN Current History Patient is verbally inappropriate and reaches for OT in inappropriate manner. OT positions self to safety of self and patient to perform evaluation Reviewed History: Yes Social History Home: Care Home ADL-Prior Level of Function SCALE: Activities may be completed with or without assistive devices. 2-[id number]-[id number] completes the activity by him/herself with no assistance from a helper. 5-Set-up or Clean-up Assistance-helper sets up or cleans up; patient completes activity. [place] assists only prior to or following the activity. 4-Supervision or Touching Assistance-helper provides verbal cues and/or touching/steadying and/or contact guard assistance as patient completes activity. Assistance may be provided throughout the activity or intermittently. 3-Partial/Moderate Assistance-helper does LESS THAN HALF the effort. Paterson lifts, holds or supports trunk or limbs, but provides less than half the effort. 2-Substantial/Maximal Assistance-helper does MORE THAN HALF the effort. [place] lifts or holds trunk or limbs and provides more than half the effort. 0-[id number]-trpesm does ALL the effort. Patient does none of the effort to complete the activity. Or, the assistance of 2 or more helpers is required for the patient to complete the activity. If activity was not attempted, code reason: 7-Patient Refused. 9-Not Applicable-not attempted and the patient did not perform the activity before the current illness, exacerbation or injury. 10-Not Attempted due to Environmental Limitations-(lack of equipment, weather restraints, etc.). 88-Not Attempted due to Medical Conditions or Safety Concerns. Self Care: Needed Some Help Functional Cognition: Needed Some Help DME/Equipment Comments [facility] fdc Patient requires 1-2 person assist for safety and decreased cognition Drive Self: No OT Current Status Subjective Supine in bed, Orientation provided by therapy, patient is verbally inappropriate to OT, patient reaches towards OT inappropriately and OT education provided to patient an appropriate reach and placement of hand to exit bed, patient reaches at OT additional attempt and OT guides patient hand toward placement of rail and FWW to exit bed. Mental Status/Objective Patient Orientation: Person, Confused, Eyes Open Current Upper Extremity ROM BUE ROM WFLS Upper Extremity Strength WFLs ADL-Treatment ADL-Current Meal set up , transfers to recliner, wash clothe for face and hand pre-meal hygiene. Oral care products supplied and set up for patient use following meal Eating (QC): 4 (OT spread butter, cut food and poured pancake syrup on pancake, patientmnakes no attempt to open containers, ) Oral Hygiene (QC): 4 Shower/Bathe Self (QC): 7 Upper Body Dressing (QC): 7 Lower Body Dressing (QC): 7 On/Off Footwear (QC): 7 Toileting Hygiene (QC): 7 Patient refused additional therapy skills, Patient is at baseline of last a dmission to this hospital last week. Education Teaching Recipient: Patient Teaching Methods: Demonstration, Discussion Response to Teaching: Unable to Comprehend, Reinforcement Needed OT Longterm Goals Manager Flight Goals 1=Demonstrate adherence to instructed precautions during ADL tasks. 2=Patient will verbalize/demonstrate understanding of assistive devices/modifications for ADL. 3=Patient will improve strength/tolerance for activity to enable patient to perform ADL's. OT Education/Plan Problem List/Assessment Assessment: No Skilled OT Needs ID'd Discharge Recommendations Plan/Recommendations: Discontinue OT (PLOF) Treatment Plan/Plan of Care Patient would benefit from OT for education, treatment and training to promote independence in ADL's, mobility, safety and/or upper extremity function for ADL's. Plan of Care: OTHER (EVAL only, patient at PLOF, return to DC recommedned ) Treatment Duration: Oct 26, 2022 Frequency: 1 time per week Estimated Hrs Per Day: .25 hour per day Agreement: Yes Rehab Potential: Poor Time Start Time: 09:38 Stop Time: 10:01 DATE: Oct 26, 2022 Total Time Billed (hr/min): 23 Billed Treatment Time EVM, ADL 23 min MARIE WEAVER OT Oct 26, 2022 10:47
[2022-10-26 11:04] VITALS: BP 131/63
--- NOTE | 2022-10-26 13:12 | Progress Note - Hospitalist ---
Subjective HPI/CC On Admission Date Seen by Provider: Oct 26, 2022 Pt is 89-year-old male known to me from multiple previous admissions including recent one this month who presented to the emergency department due to a fall. He had recently admitted to assisted and per his daughter he was doing very well but figured out how to work his lift chair and tried to stand up and fell yesterday. This was unwitnessed. He is on blood thinners so was brought to the emergency department for evaluation as he had an abrasion on the top of his head. CT head was done and was negative for intracranial hemorrhage. CT abdomen pelvis was done as well and was negative for acute findings though did show old rib fractures and compression fractures. He was unable to ambulate and was found to have a mildly elevated troponin so was admitted for further evaluation. This morning he is sleeping soundly and while he does wake up and look around he did not participate in the exam. This is off from his baseline and I have previously taken care of him as he can be confused but is normally quite talkative. Subjective/Events-last exam Pt sleepy again this morning but RN states he had a rough night and was up a lot. Objective Exam Vital Signs Vital Signs Date Time Temp Pulse Resp B/P (MAP) Pulse Ox O2 Delivery O2 Flow Rate FiO2 10/26/22 12:51 89 10/26/22 11:04 36.4 20 131/63 (85) 94 Room Air 10/26/22 08:26 0.00 Capillary Refill : Less Than 3 Seconds General Appearance: Chronically ill, Other (sleeping soundly) Respiratory: Lungs Clear, No Respiratory Distress Cardiovascular: Regular Rate, Rhythm Gastrointestinal: Normal Bowel Sounds, Soft Neurologic/Psychiatric: Other (opens eyes when spoken to but then quickly back to sleep) Results/Procedures Lab Laboratory Tests 10/26/22 05:20 Patient resulted labs reviewed. Assessment/Plan Assessment and Plan Assess & Plan/Chief Complaint Elevated troponin CAD PAD Continue home meds Troponin essentially stable Cardiology consulted, appreciate recs Echo with EF of 55% Fall Old compression fracture Recent rib fractures Dementia Trauma imaging- negative for acute findings did show old known rib fracture and previously seen compression fractures IS PT/OT- did better today MAT protocol HTN HLD A-fib NIDDMII Dementia No acute needs, continue home meds as appropriate DVT ppx: On eliquis Diagnosis/Problems Diagnosis/Problems (1) Fracture of T12 vertebra Status: Acute (2) Fall on same level Status: Acute (3) Debility Status: Acute (4) Weakness (5) Afib Status: Chronic (6) PAD (peripheral artery disease) (7) Essential (primary) hypertension Status: Chronic (8) CAD (coronary artery disease) Status: Chronic (9) Insulin dependent diabetes mellitus Status: Chronic (10) Elevated troponin Status: Acute LENNIE GREEN MD Oct 26, 2022 13:12
--- NOTE | 2022-10-26 15:08 | Cardiology Progress Note ---
Subjective Time Seen by Provider: 14:50 Subjective/Events-last exam Patient comfortable. Denies chest pain or shortness of breath Review of Systems As mentioned in history of present illness Exam Vital Signs Vital Signs Date Time Temp Pulse Resp B/P (MAP) Pulse Ox O2 Delivery O2 Flow Rate FiO2 10/26/22 12:51 89 10/26/22 11:04 36.4 20 131/63 (85) 94 Room Air 10/26/22 08:26 0.00 Physical Exam The patient is a pleasant 87-year-old gentleman who has been having unsteady gait for at least the past several weeks to months. He has had recent falls including rib fractures. Lives in an assisted care living facility long- term but was recently in a senior living facility for physical therapy and rehab. There, yesterday he became unsteady while trying to get out of a chair and sustained a mechanical fall. He is currently confused but states that there was no chest pain, palpitations, or shortness of breath. No syncope reported. Troponins were checked and a borderline abnormal at 0.[address] segment depressions in the anterolateral leads which are new as compared to his EKG from 08/14/2021. Of note, he has a history of coronary artery disease and paroxysmal atrial fibrillation. He is currently on triple therapy with cilostazol, low-dose apixaban and low-dose aspirin. Troponin 0.05 x 2 Imaging: Transthoracic echo 10/25/2022. Normal left ventricular ejection fraction of 55 to 60%. No regional wall motion abnormalities. Mild left atrial enlargement. Bioprosthetic TAVR valve adequately functioning. IVC normal. EKG 10/25/2022 self reviewed. Normal sinus rhythm. Poor progression of R waves in precordial leads. T wave inversions and mild ST segment depressions anterolateral leads EKG 08/14/2021 self reviewed. Normal sinus rhythm. Concern for anteroseptal myocardial infarction. T wave inversions and ST segment depressions seen on 10/25/2022 are not noted on this EKG Stress test January 2021 (regadenoson myocardial perfusion stress test with technetium 99 sestamibi imaging). Left ventricular ejection fraction 43%. No significant ischemia Lower extremity angiography 2017. Severe peripheral arterial disease, being treated medically in the absence of critical limb ischemia Transthoracic echo 2012. Normal left ventricular ejection fraction of 55% with posterobasal hypokinesia Labs Laboratory Tests Test 10/25/22 17:36 10/25/22 20:50 10/26/22 05:20 10/26/22 10:57 Range/Units Glucometer 143 H 225 H 239 H 70-110 MG/DL White Blood Count 6.1 4.3-11.0 10^3/uL Red Blood Count 4.01 L 4.30-5.52 10^6/uL Hemoglobin 11.9 L 13.3-17.7 g/dL Hematocrit 36 L 40-54 % Mean Corpuscular Volume 89 80-99 fL Mean Corpuscular Hemoglobin 30 25-34 pg Mean Corpuscular Hemoglobin Concent 34 32-36 g/dL Red Cell Distribution Width 15.2 H 10.0-14.5 % Platelet Count 158 130-400 10^3/uL Mean Platelet Volume 9.6 9.0-12.2 fL Sodium Level 133 L 135-145 MMOL/L Potassium Level 3.9 3.6-5.0 MMOL/L Chloride Level 102 98-107 MMOL/L Carbon Dioxide Level 22 21-32 MMOL/L Anion Gap 9 5-14 MMOL/L Blood Urea Nitrogen 16 7-18 MG/DL Creatinine 0.88 0.60-1.30 MG/DL Estimat Glomerular Filtration Rate 83 BUN/Creatinine Ratio 18 Glucose Level 153 H 70-105 MG/DL Calcium Level 9.1 8.5-10.1 MG/DL Radiology S1 and S2 regular Chest clear to auscultation No lower extremity edema Neurological examination grossly nonfocal A/P-Cardiology Admission Diagnosis Recurrent falls. Patient has been having unsteady gait for the past few weeks to months. Recent rib fractures and old compression fractures in the spine. No history of palpitations, chest pain, presyncope or syncope. Borderline abnormal troponin, with new T wave inversions since EKG from 2021. On medical treatment for coronary artery disease with aspirin, beta-blockers and statin. Patient has no cardiac symptoms. Unremarkable transthoracic echo 10/25/2022 with normal left ventricular ejection fraction and no wall motion abnormalities. H/O PAF - Currently SR and on oral diltiazem. Continue low-dose diltiazem. Continue low-dose apixaban - - documented on ILR transmissions of Apr and May 2020 -On apixaban for stroke prophylaxis. Lower dose because he is also on antiplatel et agents and now with unsteady gait. Near-syncope in Mar 2020 - s/p ILR implant on 04/20/20 - ILR showing brief WCT in early Nov 2020: probaly A fib, but cannot exclude NSVT. Continue beta-blockers s/p TAVR at on 08/07/[address] Valente. Adequately functioning valve on transthoracic echo 10/25/2022 - Echo of 04/20/20: LVEF 50%, mild to mod dilatation of LA, mild to mod MR, b ioprosthetic AoV with peak grad 20 mmHg and mean grad 11 mmHg, mild tomod TR, RVSP 30 mmHg - Echo of 02-01-21: LVEF 45-50%: mod conc LVH, dilated LA, bioprostheitc aoric valve with peak grad 28 and mean grad 15 mmHg Hypertension - controlled Poor balance - intermittent noncompliance with supportive devices such as cane/walker, recent falls at home CAD - H/O CECY to the LAD at at time of cardiac cath on 07/10/[address] Roman - MPI 01-31-21: mild to mod cardiomegaly with mild to mod global hypokinesis and LVEF 43%, no ischemia or infarction Continue aspirin and statin Carotid dz - H/o right carotid stent. - Mild carotid arterial disease without evidence of hemodynamic significance on carotid u/s of 08/22/20 PAD: - Peripheral angiogram was done on 12/03/[address] Palafox which demonstrated moderate calcified disease segment in the right common iliac artery. Very tortuous right distal common iliac artery and external iliac artery. Small AV fistula noted in the distal right SFA filling deep saphenous vein. Mild diffuse disease in the right SFA. No significant disease in the right popliteal artery. At least moderate calcification is noted in the right SFA and popliteal artery. Severe stenosis in the right TP trunk with heavy calcification. Single-vessel runoff below the knee which is an anterior tibial artery which is occluded in the distal segment. Diffusely diseased severe deep peroneal and posterior tibial artery with heavy calcification with no contribution to flow to the foot. In the left lower extremity there was no significant disease in the left common and external iliac artery. Severe ostial stenosis of the left internal iliac artery. Moderate calcified stenosis is noted in the left common femoral artery. Moderate to severe stenosis in the proximal left SFA. Moderate disease calcified in the mid, distal SFA and proximal popliteal artery. Moderate to severe calcified is disease segment in the distal left popliteal artery. 1 vessel runoff below the left knee which is very likely a posterior tibial artery with subtotal occlusion in the proximal segment. Total occlusion of the deep peroneal and anterior tibial artery. - Last HELADIO done on 05/07/[address] Palafox which showed severely abnormal bilateral HELADIO and TBI. Right HELADIO 0.46, TBI 0.25. Left HELADIO 0.45, TBI 0.35. No resting pain or nonhealing ulcers with single-vessel runoff bilaterally. Managed conservatively Hyperlipidemia - statin - managed by PCP Dementia. Has been living in assisted living for a while. ANDRESSA APONTE MD Oct 26, 2022 15:08
[2022-10-26 15:40] VITALS: BP 114/67
[2022-10-26 19:30] VITALS: BP 127/62
[2022-10-26 23:50] VITALS: BP 132/69
[2022-10-27 03:55] VITALS: BP 140/61
[2022-10-27 04:11] VITALS: BP 140/61
[2022-10-27] MEDS: CATHETER FLUSH 10 ML SYR IVP SCH ×3 (05:26→20:26)
[2022-10-27] MEDS: inSUlin ASPART (NovoLOG) 1 UNIT/0.01 ML (CHARGE PER UNIT) SC SCH ×4 (06:14→20:27)
[2022-10-27 06:24] LABS: HEMATOCRIT 33 % (40-54); HEMOGLOBIN 10.9 g/dL (13.3-17.7); MEAN CORPUSCULAR HEMOGLOBIN 30 pg (25-34); MEAN CORPUSCULAR HGB CONC 33 g/dL (32-36); MEAN CORPUSCULAR VOLUME 90 fL (80-99); MEAN PLATELET VOLUME 9.2 fL (9.0-12.2); PLATELET COUNT 142 10^3/uL (130-400); WHITE BLOOD COUNT 5.9 10^3/uL (4.3-11.0)
[2022-10-27 06:32] LABS: POTASSIUM 4.4 MMOL/L (3.6-5.0)
[2022-10-27 06:33] LABS: CALCIUM 9.1 MG/DL (8.5-10.1)
[2022-10-27 06:37] LABS: CREATININE SERUM 0.93 MG/DL (0.60-1.30)
[2022-10-27 07:29] VITALS: BP 122/57
[2022-10-27] MEDS: OMEGA 3 (FISH OIL) 1000 MG CAP PO SCH (08:36)
[2022-10-27] MEDS: ASPIRIN E.C. 81 MG (ECOTRIN) TAB PO SCH (08:36)
[2022-10-27] MEDS: MULTIVIT W/MINERALS TAB (THERAGRAN M) PO SCH (08:36)
[2022-10-27] MEDS: CALCIUM CARBONATE 500 MG (TUMS) TAB.CHEW PO SCH (08:36)
[2022-10-27] MEDS: METHYL SALICYLATE/MENTHOL (BENGAY, MUSCLE RUB) 3 OZ TUBE TP SCH (08:36)
[2022-10-27] MEDS: APIXABAN 2.5 MG (ELIQUIS) TABLET PO SCH ×2 (08:36→20:25)
[2022-10-27] MEDS: CARBAM PEROXIDE 6.5% 15 ML DROPS (DEBROX) OT SCH ×2 (08:36→20:25)
[2022-10-27] MEDS: RAMIPRIL 2.5 MG (ALTACE) CAP PO SCH (08:37)
--- NOTE | 2022-10-27 10:08 | Progress Note - Cardiology ---
Cardiology SOAP Progress Note Subjective: No cp or palp or syncope or shortness of breath at rest Denies n/v/d Gen weakness Weakness of legs and poor balance, chronic Objective: I&O/Vital Signs 10/26/22 10/27/22 10/27/22 10/27/22 23:50 01:00 01:07 03:55 Temp 36.4 Pulse 65 69 70 60 Resp 27 28 B/P (MAP) 132/69 (90) 140/61 (87) Pulse Ox 97 97 97 O2 Delivery Room Air Nasal Cannula Nasal Cannula O2 Flow Rate 2.00 2.00 10/27/22 10/27/22 10/27/22 10/27/22 04:11 07:00 07:29 08:00 Temp 35.8 36.0 Pulse 76 57 49 Resp 26 21 B/P (MAP) 140/61 (87) 122/57 (78) Pulse Ox 96 94 O2 Delivery Nasal Cannula Nasal Cannula Room Air O2 Flow Rate 2.00 2.00 10/27/22 00:00 Intake Total 1830 ml Balance 1830 ml Weight (Pounds): 215 Weight (Ounces): 0.0 Weight (Calculated Kilograms): 97.998060 Constitutional: No AAO x 3; well-developed, well-nourished Respiratory: No accessory muscle use; chest expansion is symmetric, other (fair to good, bilateral air entry) Cardiovascular: regular rate-rhythm, S1 and S2, systolic murmur (soft HALINA at card base) Gastrointestional: No tender; soft, audible bowel sounds Extremities: No clubbing, No cyanosis, No significant edema Neurologic/Psychiatric: No oriented x 3; other (moves all limbs) Skin: normal color, warm/dry Results/Procedures: Labs Laboratory Tests 10/26/22 10:57: Glucometer 239H 10/26/22 15:35: Glucometer 217H 10/26/22 19:53: Glucometer 103 10/26/22 20:38: Glucometer 158H 10/27/22 06:09: Glucometer 197H 10/27/22 06:15: White Blood Count 5.9, Red Blood Count 3.69L, Hemoglobin 10.9L, Hematocrit 33L, Mean Corpuscular Volume 90, Mean Corpuscular Hemoglobin 30, Mean Corpuscular Hemoglobin Concent 33, Red Cell Distribution Width 15.1H, Platelet Count 142, Mean Platelet Volume 9.2, Sodium Level 132L, Potassium Level 4.4, Chloride Level 101, Carbon Dioxide Level 22, Anion Gap 9, Blood Urea Nitrogen 13, Creatinine 0.93, Estimat Glomerular Filtration Rate 79, BUN/Creatinine Ratio 14, Glucose Level 198H, Calcium Level 9.1 Laboratory Tests 10/26/22 05:20 10/27/22 06:15 Physician Assessment Physician Assessment Recurrent falls. Patient has been having unsteady gait for the past few weeks to months. Recent rib fractures and old compression fractures in the spine. No history of palpitations, chest pain, presyncope or syncope. Borderline abnormal troponin, with new T wave inversions since EKG from 2021. On medical treatment for coronary artery disease with aspirin, beta-blockers and statin. Patient has no cardiac symptoms. Unremarkable transthoracic echo 10/25/2022 with normal left ventricular ejection fraction and no wall motion abnormalities. H/O PAF - documented on ILR transmissions of Apr and May 2020 - Currently SR and on oral diltiazem. Continue low-dose diltiazem. Continue low-dose apixaban - On apixaban for stroke prophylaxis. Lower dose because he is also on antiplatelet agents and now with unsteady gait. Near-syncope in Mar 2020 - s/p ILR implant on 04/20/20 - ILR showing brief WCT in early Nov 2020: probaly A fib, but cannot exclude NSVT (pt requested med therapy only). Continue beta-blockers s/p TAVR at on 08/07/[address] Valente. Adequately functioning valve on transthoracic echo 10/25/2022 - Echo of 04/20/20: LVEF 50%, mild to mod dilatation of LA, mild to mod MR, bioprosthetic AoV with peak grad 20 mmHg and mean grad 11 mmHg, mild tomod TR, RVSP 30 mmHg - Echo of 02-01-21: LVEF 45-50%: mod conc LVH, dilated LA, bioprostheitc aoric valve with peak grad 28 and mean grad 15 mmHg Hypertension - controlled Poor balance - intermittent noncompliance with supportive devices such as cane/walker, recent falls at home CAD - H/O CECY to the LAD at at time of cardiac cath on 07/10/[address] Roman - RUST 01-31-21: mild to mod cardiomegaly with mild to mod global hypokinesis and LVEF 43%, no ischemia or infarction - Continue aspirin and statin Carotid dz - H/o right carotid stent. - Mild carotid arterial disease without evidence of hemodynamic significance on carotid u/s of 08/22/20 PAD: - Peripheral angiogram was done on 12/03/[address] Palafox which demonstrated moderate calcified disease segment in the right common iliac artery. Very tortuous right distal common iliac artery and external iliac artery. Small AV fistula noted in the distal right SFA filling deep saphenous vein. Mild diffuse disease in the right SFA. No significant disease in the right popliteal artery. At least moderate calcification is noted in the right SFA and popliteal artery. Severe stenosis in the right TP trunk with heavy calcification. Single-vessel runoff below the knee which is an anterior tibial artery which is occluded in the distal segment. Diffusely diseased severe deep peroneal and posterior tibial artery with heavy calcification with no contribution to flow to the foot. - In the left lower extremity there was no significant disease in the left common and external iliac artery. Severe ostial stenosis of the left internal iliac artery. Moderate calcified stenosis is noted in the left common femoral artery. Moderate to severe stenosis in the proximal left SFA. Moderate disease calcified in the mid, distal SFA and proximal popliteal artery. Moderate to severe calcified is disease segment in the distal left popliteal artery. 1 vessel runoff below the left knee which is very likely a posterior tibial artery with subtotal occlusion in the proximal segment. Total occlusion of the deep peroneal and anterior tibial artery. - Last HELADIO done on 05/07/[address] Palafox which showed severely abnormal bilat eral HELADIO and TBI. Right HELADIO 0.46, TBI 0.25. Left HELADIO 0.45, TBI 0.35. No resting pain or nonhealing ulcers with single-vessel runoff bilaterally. Managed conservatively Hyperlipidemia - statin - managed by PCP Dementia. Has been living in assisted living for a while. KALLI COURTNEY MD FACP FAC CCDS Oct 27, 2022 10:08
--- NOTE | 2022-10-27 10:29 | Progress Note - Hospitalist ---
Subjective HPI/CC On Admission Date Seen by Provider: Oct 27, 2022 Pt is 89-year-old male known to me from multiple previous admissions including recent one this month who presented to the emergency department due to a fall. He had recently admitted to assisted and per his daughter he was doing very well but figured out how to work his lift chair and tried to stand up and fell yesterday. This was unwitnessed. He is on blood thinners so was brought to the emergency department for evaluation as he had an abrasion on the top of his head. CT head was done and was negative for intracranial hemorrhage. CT abdomen pelvis was done as well and was negative for acute findings though did show old rib fractures and compression fractures. He was unable to ambulate and was found to have a mildly elevated troponin so was admitted for further evaluation. This morning he is sleeping soundly and while he does wake up and look around he did not participate in the exam. This is off from his baseline and I have previously taken care of him as he can be confused but is normally quite talkative. Subjective/Events-last exam Pt much better today. Up in chair looking out window. Talkative and more alert today. Son at bedside. Objective Exam Vital Signs Vital Signs Date Time Temp Pulse Resp B/P (MAP) Pulse Ox O2 Delivery O2 Flow Rate FiO2 10/27/22 08:00 Room Air 10/27/22 07:29 36.0 49 21 122/57 (78) 94 2.00 Capillary Refill : Less Than 3 Seconds General Appearance: No Apparent Distress, Chronically ill Respiratory: Lungs Clear, No Respiratory Distress Cardiovascular: Regular Rate, Rhythm Gastrointestinal: Normal Bowel Sounds, Soft Neurologic/Psychiatric: Alert, Other (oriented to self and place) Results/Procedures Lab Laboratory Tests 10/27/22 06:15 Patient resulted labs reviewed. Assessment/Plan Assessment and Plan Assess & Plan/Chief Complaint Elevated troponin CAD PAD Continue home meds Troponin essentially stable Cardiology consulted, appreciate recs Echo with EF of 55% Fall Old compression fracture Recent rib fractures Dementia Trauma imaging- negative for acute findings did show old known rib fracture and previously seen compression fractures IS PT/OT Mentation much improved today MAT protocol HTN HLD A-fib NIDDMII Dementia No acute needs, continue home meds as appropriate DVT ppx: On eliquis Diagnosis/Problems Diagnosis/Problems (1) Fracture of T12 vertebra Status: Acute (2) Fall on same level Status: Acute (3) Debility Status: Acute (4) Weakness (5) Afib Status: Chronic (6) PAD (peripheral artery disease) (7) Essential (primary) hypertension Status: Chronic (8) CAD (coronary artery disease) Status: Chronic (9) Insulin dependent diabetes mellitus Status: Chronic (10) Elevated troponin Status: Acute LENNIE GREEN MD Oct 27, 2022 10:29
[2022-10-27 11:59] VITALS: BP 120/76
[2022-10-27 16:00] VITALS: BP 165/85
[2022-10-27 20:30] VITALS: BP 105/85
[2022-10-28] VITALS (8 sets, daily range): BP systolic 99–133; BP diastolic 57–88
[2022-10-28 05:24] LABS: HEMATOCRIT 36 % (40-54); HEMOGLOBIN 11.7 g/dL (13.3-17.7); MEAN CORPUSCULAR HEMOGLOBIN 29 pg (25-34); MEAN CORPUSCULAR HGB CONC 33 g/dL (32-36); MEAN CORPUSCULAR VOLUME 89 fL (80-99); MEAN PLATELET VOLUME 9.3 fL (9.0-12.2); PLATELET COUNT 152 10^3/uL (130-400); WHITE BLOOD COUNT 5.6 10^3/uL (4.3-11.0)
[2022-10-28 05:37] LABS: POTASSIUM 4.2 MMOL/L (3.6-5.0)
[2022-10-28 05:38] LABS: CALCIUM 9.2 MG/DL (8.5-10.1)
[2022-10-28 05:42] LABS: CREATININE SERUM 0.79 MG/DL (0.60-1.30)
[2022-10-28] MEDS: inSUlin ASPART (NovoLOG) 1 UNIT/0.01 ML (CHARGE PER UNIT) SC SCH ×4 (06:50→21:06)
[2022-10-28] MEDS: CATHETER FLUSH 10 ML SYR IVP SCH ×2 (06:52→11:58)
[2022-10-28] MEDS: OMEGA 3 (FISH OIL) 1000 MG CAP PO SCH (08:34)
[2022-10-28] MEDS: METHYL SALICYLATE/MENTHOL (BENGAY, MUSCLE RUB) 3 OZ TUBE TP SCH (08:34)
[2022-10-28] MEDS: APIXABAN 2.5 MG (ELIQUIS) TABLET PO SCH ×2 (08:34→20:22)
[2022-10-28] MEDS: ASPIRIN E.C. 81 MG (ECOTRIN) TAB PO SCH (08:34)
[2022-10-28] MEDS: CALCIUM CARBONATE 500 MG (TUMS) TAB.CHEW PO SCH (08:34)
[2022-10-28] MEDS: RAMIPRIL 2.5 MG (ALTACE) CAP PO SCH (08:34)
[2022-10-28] MEDS: MULTIVIT W/MINERALS TAB (THERAGRAN M) PO SCH (08:34)
[2022-10-28] MEDS: CARBAM PEROXIDE 6.5% 15 ML DROPS (DEBROX) OT SCH ×2 (08:35→20:23)
--- NOTE | 2022-10-28 10:17 | Progress Note - Hospitalist ---
Subjective HPI/CC On Admission Date Seen by Provider: Oct 28, 2022 Pt is 89-year-old male known to me from multiple previous admissions including recent one this month who presented to the emergency department due to a fall. He had recently admitted [facility] and per his daughter he was doing very well but figured out how to work his lift chair and tried to stand up and fell yesterday. This was unwitnessed. He is on blood thinners so was brought to the emergency department for evaluation as he had an abrasion on the top of his head. CT head was done and was negative for intracranial hemorrhage. CT abdomen pelvis was done as well and was negative for acute findings though did show old rib fractures and compression fractures. He was unable to ambulate and was found to have a mildly elevated troponin so was admitted for further evaluation. This morning he is sleeping soundly and while he does wake up and look around he did not participate in the exam. This is off from his baseline and I have previously taken care of him as he can be confused but is normally quite talkative. Subjective/Events-last exam Pt reports doing well. No complaints. Laying in bed after breakfast. Objective Exam Vital Signs Vital Signs Date Time Temp Pulse Resp B/P (MAP) Pulse Ox O2 Delivery O2 Flow Rate FiO2 10/28/22 09:15 36.4 104 92 21 10/28/22 08:53 Room Air 0.00 10/28/22 08:17 18 123/88 (100) Capillary Refill : Less Than 3 Seconds General Appearance: No Apparent Distress, Chronically ill Respiratory: Lungs Clear, No Respiratory Distress Cardiovascular: Regular Rate, Rhythm Neurologic/Psychiatric: Alert, Other (oriented to self and place) Results/Procedures Lab Laboratory Tests 10/28/22 05:11 Patient resulted labs reviewed. Assessment/Plan Assessment and Plan Assess & Plan/Chief Complaint Elevated troponin CAD PAD Continue home meds Troponin essentially stable Cardiology consulted, appreciate recs Echo with EF of 55% Fall Old compression fracture Recent rib fractures Dementia Trauma imaging- negative for acute findings did show old known rib fracture and previously seen compression fractures IS PT/OT Mentation doing well- at what his baseline from previous visits is MAT protocol HTN HLD A-fib NIDDMII Dementia No acute needs, continue home meds as appropriate DVT ppx: On eliquis Diagnosis/Problems Diagnosis/Problems (1) Fracture of T12 vertebra Status: Acute (2) Fall on same level Status: Acute (3) Debility Status: Acute (4) Weakness (5) Afib Status: Chronic (6) PAD (peripheral artery disease) (7) Essential (primary) hypertension Status: Chronic (8) CAD (coronary artery disease) Status: Chronic (9) Insulin dependent diabetes mellitus Status: Chronic (10) Elevated troponin Status: Acute LENNIE GREEN MD Oct 28, 2022 10:17
--- NOTE | 2022-10-28 13:02 | Progress Note - Cardiology ---
Cardiology SOAP Progress Note Subjective: No cp or palp or syncope Shortness of breath with exertion at usual baseline Poor balance at usual baseline No n/v/d Gen weakness and malaise Objective: I&O/Vital Signs 10/28/22 10/28/22 10/28/22 10/28/22 01:39 04:33 07:00 08:00 Pulse 65 65 73 Resp 20 B/P (MAP) 105/67 (80) Pulse Ox 94 O2 Delivery Room Air Room Air 10/28/22 10/28/22 10/28/22 10/28/22 08:17 08:53 09:15 11:27 Temp 36.4 36.4 36.9 Pulse 98 104 80 Resp 18 21 B/P (MAP) 123/88 (100) 99/57 (71) Pulse Ox 96 92 92 94 O2 Delivery Room Air Room Air Room Air O2 Flow Rate 0.00 FiO2 10/28/22 12:50 Pulse 80 10/28/22 00:00 Intake Total 1600 ml Balance 1600 ml Weight (Pounds): 215 Weight (Ounces): 0.0 Weight (Calculated Kilograms): 97.441614 Constitutional: No AAO x 3; well-developed, well-nourished Respiratory: No accessory muscle use; chest expansion is symmetric, other (fair to good, bilateral air entry) Cardiovascular: regular rate-rhythm, S1 and S2, systolic murmur (soft HALINA at card base) Gastrointestional: No tender; soft, audible bowel sounds Extremities: No clubbing, No cyanosis, No significant edema Neurologic/Psychiatric: No oriented x 3; other (moves all limbs) Skin: normal color, warm/dry Results/Procedures: Labs Laboratory Tests 10/27/22 16:40: Glucometer 164H 10/27/22 20:18: Glucometer 156H 10/28/22 05:11: White Blood Count 5.6, Red Blood Count 4.01L, Hemoglobin 11.7L, Hematocrit 36L, Mean Corpuscular Volume 89, Mean Corpuscular Hemoglobin 29, Mean Corpuscular Hemoglobin Concent 33, Red Cell Distribution Width 14.9H, Platelet Count 152, Mean Platelet Volume 9.3, Sodium Level 136, Potassium Level 4.2, Chloride Level 104, Carbon Dioxide Level 23, Anion Gap 9, Blood Urea Nitrogen 12, Creatinine 0.79, Estimat Glomerular Filtration Rate 86, BUN/Creatinine Ratio 15, Glucose Level 150H, Calcium Level 9.2 10/28/22 11:18: Glucometer 205H Laboratory Tests 10/27/22 06:15 10/28/22 05:11 A/P: Assessment: Recurrent falls. 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 Continue low-dose diltiazem. Continue low-dose apixaban - On apixaban for stroke prophylaxis. Lower dose because he is also on antiplatelet agents and now with unsteady gait. Near-syncope in Mar 2020 - s/p ILR implant on 04/20/20 - ILR showing brief WCT in early Nov 2020: probaly A fib, but cannot exclude NSVT (pt requested med therapy only). Continue beta-blockers s/p TAVR at on 08/07/[address] Valente. Adequately functioning valve on transthoracic echo 10/25/2022 - Echo of 04/20/20: LVEF 50%, mild to mod dilatation of LA, mild to mod MR, bioprosthetic AoV with peak grad 20 mmHg and mean grad 11 mmHg, mild tomod TR, RVSP 30 mmHg - Echo of 02-01-21: LVEF 45-50%: mod conc LVH, dilated LA, bioprostheitc aoric valve with peak grad 28 and mean grad 15 mmHg - Echo on 10-25-22 (Dr Godoy): LVEF 55-60%, mildly dilated LA, trivial MR and TR, normally functioning bioprosthetic AV (s/p TAVR), PASP indeterminate Hypertension - controlled Poor balance - intermittent noncompliance with supportive devices such as cane/walker CAD - H/O CECY to the LAD at at time of cardiac cath on 07/10/[address] Roman - MPI 01-31-21: mild to mod cardiomegaly with mild to mod global hypokinesis and LVEF 43%, no ischemia or infarction Carotid dz - H/o right carotid stent. - Mild carotid arterial disease without evidence of hemodynamic significance on carotid u/s of 08/22/20 PAD: - Peripheral angiogram was done on 12/03/[address] Palafox which demonstrated moderate calcified disease segment in the right common iliac artery. Very tortuous right distal common iliac artery and external iliac artery. Small AV fistula noted in the distal right SFA filling deep saphenous vein. Mild diffuse disease in the right SFA. No significant disease in the right popliteal artery. At least moderate calcification is noted in the right SFA and popliteal artery. Severe stenosis in the right TP trunk with heavy calcification. Single-vessel runoff below the knee which is an anterior tibial artery which is occluded in the distal segment. Diffusely diseased severe deep peroneal and posterior tibial artery with heavy calcification with no contribution to flow to the foot. - In the left lower extremity there was no significant disease in the left common and external iliac artery. Severe ostial stenosis of the left internal il iac artery. Moderate calcified stenosis is noted in the left common femoral artery. Moderate to severe stenosis in the proximal left SFA. Moderate disease calcified in the mid, distal SFA and proximal popliteal artery. Moderate to severe calcified is disease segment in the distal left popliteal artery. 1 vessel runoff below the left knee which is very likely a posterior tibial artery with subtotal occlusion in the proximal segment. Total occlusion of the deep peroneal and anterior tibial artery. - Last HELADIO done on 05/07/[address] Palafox which showed severely abnormal bilateral HELADIO and TBI. Right HELADIO 0.46, TBI 0.25. Left HELADIO 0.45, TBI 0.35. No resting pain or nonhealing ulcers with single-vessel runoff bilaterally. Managed conservatively Hyperlipidemia - statin - managed by PCP Plan: * Complex management due to multiple comorbidities * Continue statin and low-dose ASA and low-dose apixaban * Monitor labs * I discussed his case with KALLI Red MD FACP FAC CCDS Oct 28, 2022 13:02
[2022-10-29 03:15] VITALS: BP 119/60
[2022-10-29 05:23] LABS: HEMATOCRIT 33 % (40-54); HEMOGLOBIN 11.1 g/dL (13.3-17.7); MEAN CORPUSCULAR HEMOGLOBIN 30 pg (25-34); MEAN CORPUSCULAR HGB CONC 33 g/dL (32-36); MEAN CORPUSCULAR VOLUME 89 fL (80-99); MEAN PLATELET VOLUME 9.4 fL (9.0-12.2); PLATELET COUNT 156 10^3/uL (130-400); WHITE BLOOD COUNT 5.1 10^3/uL (4.3-11.0)
[2022-10-29 05:36] LABS: POTASSIUM 4.2 MMOL/L (3.6-5.0)
[2022-10-29 05:37] LABS: CALCIUM 9.2 MG/DL (8.5-10.1)
[2022-10-29] MEDS: MULTIVIT W/MINERALS TAB (THERAGRAN M) PO SCH (05:38)
[2022-10-29 05:42] LABS: CREATININE SERUM 1.01 MG/DL (0.60-1.30)
[2022-10-29] MEDS: inSUlin ASPART (NovoLOG) 1 UNIT/0.01 ML (CHARGE PER UNIT) SC SCH ×2 (05:48→11:41)
[2022-10-29 07:17] VITALS: BP 120/81
[2022-10-29] MEDS: ASPIRIN E.C. 81 MG (ECOTRIN) TAB PO SCH (08:55)
[2022-10-29] MEDS: OMEGA 3 (FISH OIL) 1000 MG CAP PO SCH (08:55)
[2022-10-29] MEDS: APIXABAN 2.5 MG (ELIQUIS) TABLET PO SCH (08:55)
[2022-10-29] MEDS: CARBAM PEROXIDE 6.5% 15 ML DROPS (DEBROX) OT SCH (08:55)
[2022-10-29] MEDS: CALCIUM CARBONATE 500 MG (TUMS) TAB.CHEW PO SCH (08:55)
[2022-10-29] MEDS: RAMIPRIL 2.5 MG (ALTACE) CAP PO SCH (08:55)
[2022-10-29] MEDS: METHYL SALICYLATE/MENTHOL (BENGAY, MUSCLE RUB) 3 OZ TUBE TP SCH (08:56)
--- NOTE | 2022-10-29 09:42 | Progress Note - Cardiology ---
Cardiology SOAP Progress Note Subjective: No cp or palp or syncope or shortness of breath Gen malaise and weakness present He reports weakness of legs, chronic, and chronic poor balance No n/v/d Objective: I&O/Vital Signs 10/28/22 10/29/22 10/29/22 10/29/22 23:19 01:00 03:11 03:15 Temp 36.9 36.5 Pulse 59 57 39 55 Resp 16 20 B/P (MAP) 133/71 (91) 119/60 (79) Pulse Ox 94 95 O2 Delivery Room Air Room Air 10/29/22 10/29/22 07:16 07:17 Temp 36.8 Pulse 56 60 Resp 16 B/P (MAP) 120/81 (94) Pulse Ox 97 O2 Delivery Room Air 10/29/22 00:00 Intake Total 1440 ml Balance 1440 ml Weight (Pounds): 215 Weight (Ounces): 0.0 Weight (Calculated Kilograms): 97.266011 Constitutional: No AAO x 3; well-developed, well-nourished Respiratory: No accessory muscle use; chest expansion is symmetric, other (fair to good, bilateral air entry) Cardiovascular: regular rate-rhythm, S1 and S2, systolic murmur (soft HALINA at card base) Gastrointestional: No tender; soft, audible bowel sounds Extremities: No clubbing, No cyanosis, No significant edema Neurologic/Psychiatric: No oriented x 3; other (moves all limbs) Skin: normal color, warm/dry Results/Procedures: Labs Laboratory Tests 10/28/22 11:18: Glucometer 205H 10/28/22 15:28: Glucometer 149H 10/28/22 20:47: Glucometer 191H 10/29/22 05:05: White Blood Count 5.1, Red Blood Count 3.75L, Hemoglobin 11.1L, Hematocrit 33L, Mean Corpuscular Volume 89, Mean Corpuscular Hemoglobin 30, Mean Corpuscular Hemoglobin Concent 33, Red Cell Distribution Width 14.9H, Platelet Count 156, Mean Platelet Volume 9.4, Sodium Level 133L, Potassium Level 4.2, Chloride Level 102, Carbon Dioxide Level 24, Anion Gap 7, Blood Urea Nitrogen 20H, Creatinine 1.01, Estimat Glomerular Filtration Rate 72, BUN/Creatinine Ratio 20, Glucose Level 123H, Calcium Level 9.2 Laboratory Tests 10/28/22 05:11 10/29/22 05:05 A/P: Assessment: Recurrent falls. 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 Continue low-dose diltiazem. Continue low-dose apixaban - On apixaban for stroke prophylaxis. Lower dose because he is also on antiplatelet agents and now with unsteady gait. Near-syncope in Mar 2020 - s/p ILR implant on 04/20/20 - ILR showing brief WCT in early Nov 2020: probaly A fib, but cannot exclude NSVT (pt requested med therapy only). Continue beta-blockers s/p TAVR at on 08/07/[address] Valente. Adequately functioning valve on transthoracic echo 10/25/2022 - Echo of 04/20/20: LVEF 50%, mild to mod dilatation of LA, mild to mod MR, bioprosthetic AoV with peak grad 20 mmHg and mean grad 11 mmHg, mild tomod TR, RVSP 30 mmHg - Echo of 02-01-21: LVEF 45-50%: mod conc LVH, dilated LA, bioprostheitc aoric valve with peak grad 28 and mean grad 15 mmHg - Echo on 10-25-22 (Dr Godoy): LVEF 55-60%, mildly dilated LA, trivial MR and TR, normally functioning bioprosthetic AV (s/p TAVR), PASP indeterminate Hypertension - controlled Poor balance - intermittent noncompliance with supportive devices such as cane/walker CAD - H/O CECY to the LAD at at time of cardiac cath on 07/10/[address] Roman - MPI 01-31-21: mild to mod cardiomegaly with mild to mod global hypokinesis and LVEF 43%, no ischemia or infarction Carotid dz - H/o right carotid stent. - Mild carotid arterial disease without evidence of hemodynamic significance on carotid u/s of 08/22/20 PAD: - Peripheral angiogram was done on 12/03/[address] Palafox which demonstrated moderate calcified disease segment in the right common iliac artery. Very tortuous right distal common iliac artery and external iliac artery. Small AV fistula noted in the distal right SFA filling deep saphenous vein. Mild diffuse disease in the right SFA. No significant disease in the right popliteal artery. At least moderate calcification is noted in the right SFA and popliteal artery. Severe stenosis in the right TP trunk with heavy calcification. Single-vessel runoff below the knee which is an anterior tibial artery which is occluded in the distal segment. Diffusely diseased severe deep peroneal and posterior tibial artery with heavy calcification with no contribution to flow to the foot. - In the left lower extremity there was no significant disease in the left common and external iliac artery. Severe ostial stenosis of the left internal iliac artery. Moderate calcified stenosis is noted in the left common femoral artery. Moderate to severe stenosis in the proximal left SFA. Moderate disease calcified in the mid, distal SFA and proximal popliteal artery. Moderate to severe calcified is disease segment in the distal left popliteal artery. 1 vessel runoff below the left knee which is very likely a posterior tibial artery with subtotal occlusion in the proximal segment. Total occlusion of the deep peroneal and anterior tibial artery. - Last HELADIO done on 05/07/[address] Palafox which showed severely abnormal bilateral HELADIO and TBI. Right HELADIO 0.46, TBI 0.25. Left HELADIO 0.45, TBI 0.35. No resting pain or nonhealing ulcers with single-vessel runoff bilaterally. Managed conservatively Hyperlipidemia - statin - managed by PCP Plan: * Complex management due to multiple comorbidities * Continue statin and low-dose ASA and low-dose apixaban * Monitor labs * Outpt f/u advised KALLI COURTNEY MD [facility] CCDS Oct 29, 2022 09:42
--- NOTE | 2022-10-29 11:10 | Discharge Inst-Skilled Nursing ---
Discharge Inst-Skilled NF Consult/Follow Up/Orders Skilled NF Admit to: [facility] Certification (SNF) I certify that SNF services are required to be given on an inpatient basis b ecause of the above named patient's need for longterm care on a continuing basis for the conditions(s) for which he/she was receiving inpatient hospital services prior to his/her transfer to the SNF. Group Home Facility Order: Nursing Services, Principle Software Engineer-Evaluate & Treat, Physical Therapy-Evaluate & Treat Oxygen Delivery Method: Room Air Discharge Diet: Low Sodium Diet Daily Activity as Tolerated: Yes Resuscitation Status: Full Code New & Resume Previous Orders Ingris Martins Oct 29, 2022 11:09 INGRIS MARTINS MD Oct 29, 2022 11:10
[2022-10-29 11:53] VITALS: BP 104/85
--- NOTE | 2022-10-29 16:17 | Discharge Summary ---
Discharge Summary Hospital Course Problems/Dx: (1) Elevated troponin Status: Acute (2) Fall on same level Status: Acute (3) Fracture of T12 vertebra Status: Acute (4) Debility Status: Acute (5) Weakness (6) Afib Status: Chronic (7) PAD (peripheral artery disease) (8) Essential (primary) hypertension Status: Chronic (9) CAD (coronary artery disease) Status: Chronic (10) Insulin dependent diabetes mellitus Status: Chronic Hospital Course Date of Admission: Oct 25, 2022 at 02:51 Admission Diagnosis : Elevated troponin Family Physician/Provider: Aries Parmra MD Date of Discharge: 10/29/22 Discharge Diagnosis: Elevated troponin Hospital Course: Michael Romo Jr is an 87 year old male with PMH HTN, T2DM, HLD, CAD, PAD, aortic stenosis s/p TAVR, dementia, who presented after a fall at his long term. He did not have any acute fractures due to his fall. He has a right lower lobe irregular pulmonary nodule which was stable at 9 mm. He was found to have an elevated troponin. Cardiology was consulted and assisted with his care. This was thought to be due to hypertension and AFib. He was treated conservatively. He was continued on his aspirin and statin. He was discharged back to [facility] in stable condition. Labs and Pending Lab Test: Laboratory Tests 10/28/22 20:47: Glucometer 191H 10/29/22 05:05: White Blood Count 5.1, Red Blood Count 3.75L, Hemoglobin 11.1L, Hematocrit 33L, Mean Corpuscular Volume 89, Mean Corpuscular Hemoglobin 30, Mean Corpuscular Hemoglobin Concent 33, Red Cell Distribution Width 14.9H, Platelet Count 156, Mean Platelet Volume 9.4, Sodium Level 133L, Potassium Level 4.2, Chloride Level 102, Carbon Dioxide Level 24, Anion Gap 7, Blood Urea Nitrogen 20H, Creatinine 1.01, Estimat Glomerular Filtration Rate 72, BUN/Creatinine Ratio 20, Glucose Level 123H, Calcium Level 9.2 10/29/22 10:25: Glucometer 248H Home Meds Active Tylenol Extra Strength (Acetaminophen) 500 Mg Tablet 1,000 Mg PO Q6H PRN 30 Days Hydrocodone-Acetamin 5-325 mg (Hydrocodone/Acetaminophen) 5 Mg-325 Mg Tablet 1 Ea PO Q4H PRN 30 Days Meloxicam 15 Mg Tablet 15 Mg PO DAILY PRN 30 Days Salonpas Patch (Methyl Salicylate/Menthol) 10 %-3 % Adh..patch 1 Each TP DAILY 30 Days APPLY TO RIGHT KNEE Levemir Flexpen (Insulin Detemir) 100 Unit/Ml (3 Ml) Insuln.pen 10 Units SC 1600 AT EVENING MEAL 30 Days Diltiazem 24Hr ER (Diltiazem HCl) 180 Mg Cap.er.24h 180 Mg PO DAILY 30 Days Aspirin EC (Aspirin) 81 Mg Tablet.dr 81 Mg PO DAILY 30 Days Eliquis (Apixaban) 2.5 Mg Tablet 2.5 Mg PO BID 30 Days Ramipril 5 Mg Capsule 5 Mg PO DAILY 30 Days Carvedilol 3.125 Mg Tablet 3.125 Mg PO BID 30 Days Multivitamin 1 Each Tablet 1 Each PO DAILY 30 Days [place] 3 1,000 mg Softgel ([place]-3 Fatty Acids/Fish Oil) 300 Mg-1,000 Mg Capsule 1 Each PO DAILY 30 Days Imodium A-D (Loperamide HCl) 2 Mg Tablet 2-4 Mg PO UD 30 Days TAKES 2 (2MG) TAB FOR THE FIRST INITIAL DOSE AND 1 TAB FOR EACH UNFORMED STOOL Calcium (Calcium Carbonate) 500 Mg Calcium (1250 Mg) Tablet 500 Mg PO DAILY 30 Days Atorvastatin Calcium 20 Mg Tablet 20 Mg PO HS 30 Days Cilostazol 100 Mg Tablet 100 Mg PO BID 30 Days Reported Debrox (Carbamide Peroxide) 6.5 % Drops 4 Drops OT BID Assessment/Pt Instructions See instructions Discharge Planning: >30 minutes discharge planning Discharge Instructions Discharge Diet: Low Sodium Diet Activity as Tolerated: Yes Consultations Cardiology Discharge Physical Examination Vital Signs Vital Signs Date Time Temp Pulse Resp B/P (MAP) Pulse Ox O2 Delivery O2 Flow Rate FiO2 10/29/22 12:41 73 10/29/22 11:53 36.4 18 104/85 (91) 95 Room Air 10/28/22 09:15 21 10/28/22 08:53 0.00 General Appearance: No Apparent Distress, Chronically ill Respiratory: Lungs Clear, No Respiratory Distress Cardiovascular: Regular Rate, Rhythm, No Murmur Gastrointestinal: Normal Bowel Sounds, Soft Extremity: Normal Inspection, No Pedal Edema Skin: Normal Color, Warm/Dry Neurologic/Psychiatric: Alert, No Motor/Sensory Deficits Allergies: Coded Allergies: No Known Drug Allergies (Unverified , 06/06/17) Copy Copies To 1: ARIES PARMAR MD Discharge Summary Date of Admission Oct 25, 2022 at 02:51 Date of Discharge Oct 29, 2022 at 14:30 Discharge Date: Oct 29, 2022 Discharge Time: 14:30 Admission Diagnosis Elevated troponin Consults/Procedures Consulations Cardiology Discharge Diagnosis (1) Elevated troponin Status: Acute (2) Fall on same level Status: Acute (3) Fracture of T12 vertebra Status: Acute (4) Debility Status: Acute (5) Weakness (6) Afib Status: Chronic (7) PAD (peripheral artery disease) (8) Essential (primary) hypertension Status: Chronic (9) CAD (coronary artery disease) Status: Chronic (10) Insulin dependent diabetes mellitus Status: Chronic ADELITA MARTINS MD Oct 29, 2022 16:11
--- NOTE | 2022-11-01 03:42 | Physician Query Clarification ---
PQ-Uncertain Diagnosis Admission/Discharge Admission Date: Oct 25, 2022 at 02:51 Discharge Date: Oct 29, 2022 at 14:30 The medical record reflects the following clinical scenario: History/Risk Factors: 87 y/o male patient admitted with unwitnessed fall reveled no acute fractures, elevated troponin likely due to type II PR due to PAF and hypertension was documented in medical record. Clinical Findings: troponin- 0.054 ng/ml, bun- 19, EKG shows ST depressions in the anterolateral leads. Treatment: Cilostazol, aspirin and apixaban. Question: Is type II PR a clinically valid diagnosis? Type II PR was documented in the cardiology progress notes, 10/29 with no further documentation in the medical record. Please document a response in Progress Note or Discharge Summary. 1. Yes, clinically valid, condition resolved. 2. No, condition ruled out. 3. Other, with explanation of clinical findings. 4. Undetermined, no explanation for clinical findings. PHYSICIAN RESPONSE Diagnosis clinically valid: Yes, Conditon resolved In responding to this query, please exercise your independent professional judgment. The purpose of this communication is to more accurately reflect the complexity of your patients condition. The fact that a question is asked does not imply that any particular answer is desired or expected. Thank you for your timely response to this clarification. Requestors name: [ ] Phone # [ ] THIS PHYSICIAN QUERY FORM IS A PERMANENT PART OF THE MEDICAL RECORD ALPESH HUNTLEY Nov 01, 2022 03:42 ADELITA MARTINS MD Nov 07, 2022 18:51
== END 2022-10-29 14:30 | DRG 282 ==
LOC: EDUNIT# 23:56 → ER 23:59 → CSD 10-25 02:51
PROVIDERS: ADMIT Internal Medicine; ATTEND Internal Medicine
DX: I48.0 Paroxysmal atrial fibrillation (principal); I21.A1 Myocardial infarction type 2; I25.10 Atherosclerotic heart disease of native coronary artery without angina pectoris; F03.90 Unspecified dementia, unspecified severity, without behavioral disturbance, psychotic disturbance, mood disturbance, and anxiety; I10 Essential (primary) hypertension; R26.9 Unspecified abnormalities of gait and mobility; E78.5 Hyperlipidemia, unspecified; Z95.2 Presence of prosthetic heart valve; I77.9 Disorder of arteries and arterioles, unspecified; E11.51 Type 2 diabetes mellitus with diabetic peripheral angiopathy without gangrene; R91.1 Solitary pulmonary nodule
CPT/HCPCS: 36415; 70450; 71045; 71250; 72125; 72170; 74176; 80048; 80053; 80061; 82550; 82553; 82947; 83735; 83874; 84484; 85025; 85027; 85610; 85730; 93005; 93041; 93306; 94760

== ENCOUNTER 2022-11-06 13:23 | Emergency (ER) | payer MEDICARE, BC ==
[~2022-11-06 13:23] MED LIST changes: +CARB15DR87 OT
[2022-11-06] MEDS ORDERED: NS IV 1000 ML 1,000 ML IV STA ×2 (13:33→14:09)
--- NOTE | 2022-11-06 13:40 | ED General ---
General Chief Complaint: General Problems/Pain Stated Complaint: HYPOTENSION Source of Information: EMS History of Present Illness Date Seen by Provider: Nov 06, 2022 Time Seen by Provider: 13:26 Initial Comments Patient is an 87-year-old male who [facility] EMS [facility] chief complaint "not acting right" per penitentiary staff and hypotension. Reportedly the penitentiary got blood pressures at 85 systolic. EMS reports 95 systolic. Patient is alert and complains of "belly" pain. He states that he had a bowel movement 2 days ago. He states he is nauseated. He thinks that he did have breakfast this morning. He denies vomiting. No problems with urination. He does not have any chest pain or shortness of breath. Of note he is in the 80s systolic on presentation tachycardic at about 100. He is answering questions, but unsure of the reliability as the patient is disoriented to the day of the week and his location. Timing/Duration: 1-3 Hours Associated Systoms: Nausea/Vomiting (nausea without vomiting) Allergies and Home Medications Allergies Coded Allergies: No Known Drug Allergies (Unverified , 06/06/17) Patient Home Medication List Home Medication List Reviewed: Yes Acetaminophen (Tylenol Extra Strength) 500 Mg Tablet, 1,000 MG PO Q6H PRN for PAIN-MILD (1-4) Prescribed by: ADELITA MARTINS on 10/16/22 1000 Apixaban (Eliquis) 2.5 Mg Tablet, 2.5 MG PO BID Prescribed by: ADELITA MARTINS on 10/16/22 1000 Aspirin (Aspirin EC) 81 Mg Tablet.dr, 81 MG PO DAILY Prescribed by: ADELITA MARTINS on 10/16/22 1000 Atorvastatin Calcium (Atorvastatin Calcium) 20 Mg Tablet, 20 MG PO HS Prescribed by: ADELITA MARTINS on 10/16/22 1000 Calcium Carbonate (Calcium) 500 Mg Calcium (1250 Mg) Tablet, 500 MG PO DAILY Prescribed by: ADELITA MARTINS on 10/16/22 1000 Carbamide Peroxide (Debrox) 6.5 % Drops, 4 DROPS OT BID, (Reported) Entered as Reported by: GIOVANY VILLELA on 10/25/22 1505 Carvedilol (Carvedilol) 3.125 Mg Tablet, 3.125 MG PO BID Prescribed by: ADELITA MARTINS on 10/16/22 1000 Cilostazol (Cilostazol) 100 Mg Tablet, 100 MG PO BID Prescribed by: ADELITA MARTINS on 10/16/22 1000 Ciprofloxacin HCl (Ciprofloxacin HCl) 500 Mg Tablet, 500 MG PO BID Prescribed by: CADEN BOJORQUEZ on 11/06/22 1659 Diltiazem HCl (Diltiazem 24Hr ER) 180 Mg Cap.er.24h, 180 MG PO DAILY Prescribed by: ADELITA MARTINS on 10/16/22 1000 Hydrocodone/Acetaminophen (Hydrocodone-Acetamin 5-325 mg) 5 Mg-325 Mg Tablet, 1 EA PO Q4H PRN for PAIN-MODERATE (5-7) Prescribed by: ADELITA MARTINS on 10/16/22 1001 Insulin Detemir (Levemir Flexpen) 100 Unit/Ml (3 Ml) Insuln.pen, 10 UNITS SC 1600 AT EVENING MEAL Prescribed by: ADELITA MARTINS on 10/16/22 1000 Loperamide HCl (Imodium A-D) 2 Mg Tablet, 2-4 MG PO UD Prescribed by: ADELITA MARTINS on 10/16/22 1000 Meloxicam (Meloxicam) 15 Mg Tablet, 15 MG PO DAILY PRN for PAIN-BREAKTHROUGH Prescribed by: ADELITA MARTINS on 10/16/22 1000 Methyl Salicylate/Menthol (Salonpas Patch) 10 %-3 % Adh..patch, 1 EACH TP DAILY Prescribed by: ADELITA MARTINS on 10/16/22 1000 Multivitamin (Multivitamin) 1 Each Tablet, 1 EACH PO DAILY Prescribed by: ADELITA MARTINS on 10/16/22 1000 Bernie-3 Fatty Acids/Fish Oil (Bernie 3 1,000 mg Softgel) 300 Mg-1,000 Mg Capsule, 1 EACH PO DAILY Prescribed by: ADELITA MARTINS on 10/16/22 1000 Ramipril (Ramipril) 5 Mg Capsule, 5 MG PO DAILY Prescribed by: ADELITA MARTINS on 10/16/22 1000 Review of Systems Review of Systems Constitutional: see HPI Respiratory: no symptoms reported Cardiovascular: no symptoms reported Gastrointestinal: abdominal pain, nausea Genitourinary: no symptoms reported Musculoskeletal: no symptoms reported Skin: no symptoms reported All Other Systems Reviewed Negative Unless Noted: Yes Past Nneliws-Cdgsua-Bcpmki Hx Immunizations Up To Date PED Vaccines UTD: Yes Seasonal Allergies Seasonal Allergies: No Past Medical History Surgery/Hospitalization HX: Bilateral Rotator Cuff Repair Right Knee Replacement Right Femoral Fracture plated Broken bilateral legs 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 Heart Cath Surgeries: Yes (rotator cuff bilat,knee replacement,broken legs bilat,melanoma in ear;LOOP) Cardiac, Ear Surgery, Orthopedic, Valve Replacement Respiratory: No Currently Using CPAP: No Currently Using BIPAP: No Cardiac: Yes (Heart failure with ischemic cardiomyopathy; LOOP RECORDER) Angina, Chronic Edema/Swelling, Coronary Artery Disease, Heart Attack, High Cholesterol, Hypertension, Peripheral Vascular, Valvular Heart Disease Neurological: Yes Dementia, Neuropathy Reproductive Disorders: No Sexually Transmitted Disease: No HIV/AIDS: No Genitourinary: No Gastrointestinal: No Musculoskeletal: Yes Gout Endocrine: Yes Diabetes, Insulin dep HEENT: Yes Cataract Loss of Vision: Denies Hearing Impairment: Hard of Hearing Cancer: Yes Skin, Melanoma Did You Recieve Any Treatments: No Psychosocial: No Sleep Difficulties Integumentary: Yes (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 ) Blood Disorders: No Adverse Reaction/Blood Tranf: No Family Medical History Cancer 09 SISTER, Onset:60 years & older (OVARIAN CANCER) 09 SISTER, Onset:40's - 50 (BREAST CANCER) Chest pain 03 FATHER, Onset:50's - 60 (SD) Dementia 03 MOTHER, Onset:60 years & older Family history: Alzheimer's disease 03 MOTHER, Onset:60 years & older Family history: Arthritis 03 FATHER, Onset:40's - 50 Family history: Breast disease 09 SISTER, Onset:40's - 50 ( OF BREAST CANCER) Family history: Cardiovascular disease 03 FATHER, Onset:40's - 50 Family history: Hypertension 03 FATHER, Onset:40's - 50 Heart disease 03 FATHER, Onset:40's - 50 Hypercholesterolemia 03 FATHER, Onset:40's - 50 Myocardial infarction 03 FATHER, Onset:40's - 50 Visual impairment 09 SISTER, Onset:40's - 50 No Family History of: Abdominal aortic aneurysm [place]'s disease Alcoholism Aphasia Cancer of colon Cataract Congenital heart disease Congestive heart failure Cystic fibrosis Dysphagia Family history: Allergy Family history: Asthma Family history: Coronary thrombosis Family history: Diabetes mellitus Family history: Gastrointestinal disease Family history: Glaucoma Family history: Osteoporosis Family history: Thyroid disorder Headache Hearing loss Hereditary disease History of - anemia History of - disorder History of - respiratory disease History of drug abuse Human immunodeficiency virus (HIV) seropositivity Infertile Kidney disease Malignant neoplasm of lung Parkinson's disease Prostate cancer Psychotic disorder Seizure disorder Stroke Tuberculosis Heart Disease, Cancer, CAD Under 55 Years Old Physical Exam Vital Signs Vital Signs - First Documented 11/06/22 13:27 Temp 35.5 Pulse 74 Resp 18 B/P (MAP) 106/60 (75) Pulse Ox 96 O2 Delivery Room Air Capillary Refill : Height, Weight, BMI Height: 5'10.00" Weight: 215lbs. 0.0oz. [id number]; 28.14 BMI Method:Stated General Appearance: No Apparent Distress, WD/WN Eyes: Bilateral Eye Normal Inspection, Bilateral Eye PERRL, Bilateral Eye EOMI HEENT: Moist Mucous Membranes Neck: Normal Inspection Respiratory: Lungs Clear, Normal Breath Sounds, No Accessory Muscle Use, No Respiratory Distress Cardiovascular: Irregularly Irregular, Tachycardia (HR = 100) Gastrointestinal: Soft, Abnormal Bowel Sounds (hyperactive BS), Tenderness (Left side of abdomen) Extremity: Normal Inspection, No Pedal Edema Neurologic/Psychiatric: Alert, Normal Mood/Affect Skin: Normal Color, Warm/Dry Focused Exam Lactate Level 11/06/22 15:00: Lactic Acid Level 1.54 Lactic Acid Level Laboratory Tests Test 11/06/22 15:00 Lactic Acid Level 1.54 MMOL/L (0.50-2.00) Progress/Results/Core Measures Suspected Sepsis SIRS Temperature: Pulse: Respiratory Rate: Laboratory Tests 11/06/22 13:35: White Blood Count 9.6 Blood Pressure / Mean: 11/06/22 15:00: Lactic Acid Level 1.54 Laboratory Tests 11/06/22 13:35: Creatinine 1.57H, INR Comment 1.2, Platelet Count 208, Total Bilirubin 1.0 Results/Orders Lab Results Laboratory Tests Test 11/06/22 13:35 11/06/22 15:00 11/06/22 16:02 Range/Units White Blood Count 9.6 4.3-11.0 10^3/uL Red Blood Count 4.68 4.30-5.52 10^6/uL Hemoglobin 13.8 13.3-17.7 g/dL Hematocrit 43 40-54 % Mean Corpuscular Volume 92 80-99 fL Mean Corpuscular Hemoglobin 30 25-34 pg Mean Corpuscular Hemoglobin Concent 32 32-36 g/dL Red Cell Distribution Width 15.1 H 10.0-14.5 % Platelet Count 208 130-400 10^3/uL Mean Platelet Volume 9.5 9.0-12.2 fL Immature Granulocyte % (Auto) 1 % Neutrophils (%) (Auto) 72 42-75 % Lymphocytes (%) (Auto) 19 12-44 % Monocytes (%) (Auto) 7 0-12 % Eosinophils (%) (Auto) 1 0-10 % Basophils (%) (Auto) 0 0-10 % Neutrophils # (Auto) 6.9 1.8-7.8 10^3/uL Lymphocytes # (Auto) 1.8 1.0-4.0 10^3/uL Monocytes # (Auto) 0.6 0.0-1.0 10^3/uL Eosinophils # (Auto) 0.1 0.0-0.3 10^3/uL Basophils # (Auto) 0.0 0.0-0.1 10^3/uL Immature Granulocyte # (Auto) 0.1 0.0-0.1 10^3/uL Prothrombin Time 15.1 H 12.2-14.7 SEC INR Comment 1.2 0.8-1.4 Activated Partial Thromboplast Time 35 24-35 SEC Sodium Level 136 135-145 MMOL/L Potassium Level 4.7 3.6-5.0 MMOL/L Chloride Level 103 98-107 MMOL/L Carbon Dioxide Level 21 21-32 MMOL/L Anion Gap 12 5-14 MMOL/L Blood Urea Nitrogen 19 H 7-18 MG/DL Creatinine 1.57 H 0.60-1.30 MG/DL Estimat Glomerular Filtration Rate 42 BUN/Creatinine Ratio 12 Glucose Level 229 H 70-105 MG/DL Calcium Level 10.0 8.5-10.1 MG/DL Corrected Calcium 10.2 H 8.5-10.1 MG/DL Total Bilirubin 1.0 0.1-1.0 MG/DL Aspartate Amino Transf (AST/SGOT) 28 5-34 U/L Alanine Aminotransferase (ALT/SGPT) 18 0-55 U/L Alkaline Phosphatase 162 H 40-136 U/L Total Protein 7.8 6.4-8.2 GM/DL Albumin 3.8 3.2-4.5 GM/DL Lactic Acid Level 1.54 0.50-2.00 MMOL/L Urine Color YELLOW Urine Clarity CLOUDY Urine pH 5.5 5-9 Urine Specific [place] 1.025 H 1.016-1.022 Urine Protein 2+ H NEGATIVE Urine Glucose (UA) TRACE H NEGATIVE Urine Ketones NEGATIVE NEGATIVE Urine Nitrite NEGATIVE NEGATIVE Urine Bilirubin NEGATIVE NEGATIVE Urine Urobilinogen 1.0 < = 1.0 MG/DL Urine Leukocyte Esterase 3+ H NEGATIVE Urine RBC (Auto) 2+ H NEGATIVE Urine RBC 25-50 H /HPF Urine WBC TNTC H /HPF Urine Squamous Epithelial Cells RARE /HPF Urine Crystals NONE /LPF Urine Bacteria LARGE H /HPF Urine Casts NONE /LPF Urine Mucus SMALL H /LPF Urine Culture Indicated CULTURE PENDING My Orders Orders - CADEN BOJORQUEZ MD Cbc With Automated Diff (11/06/22 13:33) Comprehensive Metabolic Panel (11/06/22 13:33) Blood Culture (11/06/22 13:33) Sputum Culture (11/06/22 13:33) Urinalysis (11/06/22 13:33) Urine Culture (11/06/22 13:33) Protime With Inr (11/06/22 13:33) Partial Thromboplastin Time (11/06/22 13:33) Chest 1 View, Ap/Pa Only (11/06/22 13:33) Ed Iv/Invasive Line Start (11/06/22 13:33) Ed Iv/Invasive Line Start (11/06/22 13:33) Vital Signs Adult Sepsis Patie Q15M (11/06/22 13:33) O2 (11/06/22 13:33) Remove Rings In Anticipation O (11/06/22 13:33) Lactic Acid Analyzer (11/06/22 13:33) Accucheck Stat ONCE (11/06/22 13:33) Ns Iv 1000 Ml (Sodium Chloride 0.9%) (11/06/22 13:33) Ns Iv 1000 Ml (Sodium Chloride 0.9%) (11/06/22 14:09) Ct Abdomen/Pelvis Wo (11/06/22 14:58) Ceftriaxone Iv/Im (Rocephin Iv/Im) (11/06/22 17:00) Vital Signs/I&O 11/06/22 11/06/22 13:27 17:40 Temp 35.5 35.5 Pulse 74 71 Resp 18 18 B/P (MAP) 106/60 (75) 138/74 Pulse Ox 96 97 O2 Delivery Room Air Room Air 11/07/22 00:00 Intake Total 2000 ml Balance 2000 ml Capillary Refill : Progress Note : Time: 16:45 Progress Note Patient seen and evaluated by me. Evaluation today includes review of recent hospitalization records, PE, "sepsis" work up to include CBC, CH12, LA, blood cultures, coag profile, UA CXR, Ct abdomen and pelvis without contrast. Pertinent PE findings - WDWN obese male in NAD. appears adequately hydrated with moist oral mucosa. Not tachy, lungs are clear. Hyperactive BS on abdominal exam with tenderness and voluntary guarding in the LLQ. Mild edema bilateral LE. confused consistent with dementia, but following commands and moving all extremities equally. DDX based on H&P includes pneumonia (due to immobility), UTI, diverticulitis, enteritis, SBO. Labs independently reviewed and interpreted by me. CT read by radiology. Patient is treated in the ED with 2L of LR for relatively low BP. HIs CBC is completely normal. CH12 pertinent findings - BUN of 19, Creatinime 1.57 (increased from most recent hospital d/c labs.) Glucose 227, Alk phos 162. Lactic acid 1.54. Pt 15.1, INR 1.2 and PTT 35. UA seems to be the offending age nt - grossly infected with a specific gravity of 1.024, 2+ protein, trace glucose, 3+ LE, 25-50 RBC and TNTC WBC and Large bacteria. Patient's UTI was treated with 1gm of Rocephin to start treatment in the ED. His BP rebounded nicely during his ED visit. CT abdomen and pelvis (per radiologist) showed no concerning findings for intra-abdominal pathology. He was hungry, interactive with family and non toxic in appearance. No clinical indications for admission at this time, stable for outpatient treatment. I reviewed all the results with his daughter who remained at the bedside. She was comfortable with the plan of care - outpatient treatment of his UTI. All questions were sought and answered - the patient was improved at discharge. Diagnostic Imaging Diagonstic Imaging: Xray Plain Films/CT/US/NM/MRI: chest Comments [facility]. [place], [place] NAME: [facility] REC#: [id number] PT STATUS: REG ER : 1935 PHYSICIAN: CADEN BOJORQUEZ MD ADMIT DATE: 11/06/22/ER Signed Date of Exam:11/06/22 CHEST 1 VIEW, AP/PA ONLY EXAMINATION: Chest radiograph, portable AP view. DATE: 11/06/2022 2:08 PM INDICATION: 87-year-old male, altered mental status. Hypotension. COMPARISON: October 25, 2022. FINDINGS: Heart size and mediastinal contours are unchanged. There is no identified pneumothorax. Lung volumes are low. Linear opacities in the right midlung likely reflect subsegmental atelectasis. There is opacification projecting in the region of the lung apices which is new. There is valvular hardware. There is an anchor in the left humeral head. The right humeral head is superiorly subluxed. There are gas filled mildly distended segments of bowel. IMPRESSION: 1. Nonspecific opacification in the region of the lung apices which is new. This potentially could relate to soft tissue overlap although interval consolidation is difficult to exclude. 2. Low lung volumes without otherwise identified interval acute cardiopulmonary abnormality. Dictated by: Dictated on workstation # [id number] Dict: 11/06/22 1600 Trans: 11/06/22 1617 [facility] [id number] Interpreted by: JAISON GILLETTE MD Electronically signed by: JAISON GILLETTE MD 11/06/22 1614 Diagonstic Imaging: CT Comments [facility], [place] NAME: PETRONA GARCIA [facility] REC#: [id number] PT STATUS: REG ER : 1935 PHYSICIAN: CADEN BOJORQUEZ MD ADMIT DATE: 11/06/22/ER Draft Date of Exam:11/06/22 CT ABDOMEN/PELVIS WO PROCEDURE: CT abdomen and pelvis without contrast. TECHNIQUE: Multiple contiguous axial images were obtained through the abdomen and pelvis without the use of intravenous contrast. Auto Exposure Controls were utilized during the CT exam to meet ALARA standards for radiation dose reduction. INDICATION: Left lower quadrant abdominal pain. COMPARISON: CT chest, abdomen and pelvis without contrast 10/25/2022. FINDINGS: Examination is limited by motion. Lung bases appear unremarkable. Cardiomegaly. Aortic valve prosthesis. Cholelithiasis without secondary findings of cholecystitis. The liver, pancreas, spleen, adrenals, kidneys, collecting systems and bladder are negative on this noncontrast exam. Normal appendix. No free intraperitoneal air or fluid. No lymphadenopathy. No evidence of bowel obstruction. Advanced atherosclerotic calcifications. No acute osseous findings. Multiple posterior left rib fractures appear stable. Stable height loss of multiple thoracic and lumbar vertebral bodies. Spondylotic changes likely result in high-grade spinal canal stenosis at L3-L4 and L4-L5. IMPRESSION: 1. No acute CT findings in the abdomen or pelvis. 2. Spondylotic changes in the lumbar spine likely result in high-grade spinal canal stenosis at L3-L4 and L4-L5. This could be further evaluated with MRI if clinically warranted. 3. Stable multiple posterior left rib fractures. Dictated on workstation # [id number] Dict: 11/06/22 1536 Trans: 11/06/22 1555 [facility] [id number] Interpreted by: DANIELA BARRIENTOS MD Electronically signed by: Departure Impression Primary Impression: Urinary tract infection Qualified Codes: N30.01 - Acute cystitis with hematuria Disposition: HOME, SELF-CARE Condition: Stable Departure-Patient Inst. Decision time for Depature: 16:56 Referrals: ARIES BARBOZA MD (PCP/Family) Primary Care Physician Patient Instructions: Urinary Tract Infection, Adult ED Add. Discharge Instructions: Drink plenty of fluids to stay well hydrated. Start the antibiotics tomorrow evening, Cipro 500mg twice a day for 7 days. Over the counter cranberry pills can help your body also clear the infection. Please follow packaging instructions. PLease follow up with your primary care doctor early next week. Return to the Emergency Department for any new, concerning or emergent complaints. Scripts Ciprofloxacin HCl (Ciprofloxacin HCl) 500 Mg Tablet 500 MG PO BID, #14 TAB Prov: CADEN BOJORQUEZ MD 11/06/22 Copy Copies To 1: ARIES BARBOZA MD, KATHRYN M MD Nov 06, 2022 13:40
[2022-11-06 13:43] LABS: BASOPHILS % (AUTO) 0 % (0-10); EOSINOPHILS # (AUTO) 0.1 10^3/uL (0.0-0.3); EOSINOPHILS % (AUTO) 1 % (0-10); HEMATOCRIT 43 % (40-54); HEMOGLOBIN 13.8 g/dL (13.3-17.7); LYMPHOCYTES # (AUTO) 1.8 10^3/uL (1.0-4.0); LYMPHOCYTES % (AUTO) 19 % (12-44); MEAN CORPUSCULAR HEMOGLOBIN 30 pg (25-34); MEAN CORPUSCULAR HGB CONC 32 g/dL (32-36); MEAN CORPUSCULAR VOLUME 92 fL (80-99); MEAN PLATELET VOLUME 9.5 fL (9.0-12.2); MONOCYTES # (AUTO) 0.6 10^3/uL (0.0-1.0); MONOCYTES % (AUTO) 7 % (0-12); NEUTROPHILS # (AUTO) 6.9 10^3/uL (1.8-7.8); NEUTROPHILS % (AUTO) 72 % (42-75); PLATELET COUNT 208 10^3/uL (130-400); WHITE BLOOD COUNT 9.6 10^3/uL (4.3-11.0)
[2022-11-06 13:53] LABS: ALBUMIN 3.8 GM/DL (3.2-4.5); POTASSIUM 4.7 MMOL/L (3.6-5.0)
[2022-11-06 13:54] LABS: INR 1.2 (0.8-1.4); PROTHROMBIN TIME PATIENT 15.1 SEC (12.2-14.7)
[2022-11-06 13:56] LABS: TOTAL PROTEIN 7.8 GM/DL (6.4-8.2)
[2022-11-06 13:59] LABS: CREATININE SERUM 1.57 MG/DL (0.60-1.30)
--- NOTE | 2022-11-06 15:55 | Diagnostic Imaging Report ---
PROCEDURE: CT abdomen and pelvis without contrast. TECHNIQUE: Multiple contiguous axial images were obtained through the abdomen and pelvis without the use of intravenous contrast. Auto Exposure Controls were utilized during the CT exam to meet ALARA standards for radiation dose reduction. INDICATION: Left lower quadrant abdominal pain. COMPARISON: CT chest, abdomen and pelvis without contrast 10/25/2022. FINDINGS: Examination is limited by motion. Lung bases appear unremarkable. Cardiomegaly. Aortic valve prosthesis. Cholelithiasis without secondary findings of cholecystitis. The liver, pancreas, spleen, adrenals, kidneys, collecting systems and bladder are negative on this noncontrast exam. Normal appendix. No free intraperitoneal air or fluid. No lymphadenopathy. No evidence of bowel obstruction. Advanced atherosclerotic calcifications. No acute osseous findings. Multiple posterior left rib fractures appear stable. Stable height loss of multiple thoracic and lumbar vertebral bodies. Spondylotic changes likely result in high-grade spinal canal stenosis at L3-L4 and L4-L5. IMPRESSION: 1. No acute CT findings in the abdomen or pelvis. 2. Spondylotic changes in the lumbar spine likely result in high-grade spinal canal stenosis at L3-L4 and L4-L5. This could be further evaluated with MRI if clinically warranted. 3. Stable multiple posterior left rib fractures. Dictated by: Dictated on workstation # [id number]
[2022-11-06 16:06] LABS: BILIRUBIN,URINE NEGATIVE (NEGATIVE); CLARITY,URINE CLOUDY; COLOR,URINE YELLOW; GLUCOSE, URINE (UA) TRACE (NEGATIVE); KETONES,URINE NEGATIVE (NEGATIVE); LEUKOCYTE ESTERASE ,URINE 3+ (NEGATIVE); NITRITE,URINE NEGATIVE (NEGATIVE); PH,URINE 5.5 (5-9); PROTEIN,URINE 2+ (NEGATIVE)
--- NOTE | 2022-11-06 16:08 | Diagnostic Imaging Report ---
EXAMINATION: Chest radiograph, portable AP view. DATE: 11/06/2022 2:08 PM INDICATION: 87-year-old male, altered mental status. Hypotension. COMPARISON: October 25, 2022. FINDINGS: Heart size and mediastinal contours are unchanged. There is no identified pneumothorax. Lung volumes are low. Linear opacities in the right midlung likely reflect subsegmental atelectasis. There is opacification projecting in the region of the lung apices which is new. There is valvular hardware. There is an anchor in the left humeral head. The right humeral head is superiorly subluxed. There are gas filled mildly distended segments of bowel. IMPRESSION: 1. Nonspecific opacification in the region of the lung apices which is new. This potentially could relate to soft tissue overlap although interval consolidation is difficult to exclude. 2. Low lung volumes without otherwise identified interval acute cardiopulmonary abnormality. Dictated by: Dictated on workstation # [id number]
[2022-11-06 16:35] LABS: BACTERIA,URINE LARGE /HPF; RBC,URINE 25-50 /HPF; SQUAMOUS EPITHELIAL CELL,UR RARE /HPF
[2022-11-06 16:39] LABS: WBC,URINE TNTC /HPF
[2022-11-06] MEDS ORDERED: CIPR500T5 PO (16:59)
[2022-11-06] MEDS ORDERED: cefTRIAXone IV/IM 1,000 MG in NS (IVPB) 50 ML IV ONE (17:00)
[2022-11-06 17:40] VITALS: BP 138/74
== END 2022-11-06 17:42 | disposition home or self-care (01) ==
LOC: EDUNIT# 13:23 → ER 13:24
DX: N39.0 Urinary tract infection, site not specified (principal); R60.9 Edema, unspecified; E11.9 Type 2 diabetes mellitus without complications; Z79.4 Long term (current) use of insulin
CPT/HCPCS: 36415; 71045; 74176; 80053; 81000; 83605; 85025; 85610; 85730; 87040; 87088

== ENCOUNTER 2022-12-13 10:33 | Outpatient (RCR) | payer MEDICARE, BC ==
[~2022-12-13 10:33] MED LIST changes: +CIPR500T5 PO
== END 2022-12-27 | disposition home or self-care (01) ==
LOC: ONC 10:33
PROVIDERS: ATTEND Radiology Radiation Oncology
DX: C44.219 Basal cell carcinoma of skin of left ear and external auricular canal (principal); E11.9 Type 2 diabetes mellitus without complications; I25.10 Atherosclerotic heart disease of native coronary artery without angina pectoris; I11.9 Hypertensive heart disease without heart failure; E78.00 Pure hypercholesterolemia, unspecified
CPT/HCPCS: 99213